=== PATIENT | male | born 1965 ===

== ENCOUNTER 2016-10-29 07:12 | Inpatient (IN) | payer SELFPAY ==
[2016-10-29 07:18] VITALS: BMI 26.4
--- NOTE | 2016-10-29 07:57 | C.PDOC ---
History Of Present Illness 51-year-old male, PMHx includes Hypothyroidism, presents to the emergency department with complaints of a cough, that is associated with subjective fever and shortness of breath for the past eight days. Patient denies nausea/vomiting , dizziness, back pain, neck pain, or any other associated symptoms. No other complaints at this time. Time Seen by Provider: 10/29/16 07:16 Chief Complaint (Nursing): Cough, Cold, Congestion Past Medical History Reviewed: Historical Data, Nursing Documentation, Vital Signs Vital Signs: Last Vital Signs Temp 98.5 F 10/29/16 15:27 Pulse 74 10/29/16 15:27 Resp 18 10/29/16 15:27 BP 112/61 10/29/16 15:27 Pulse Ox 99 10/29/16 15:27 - Medical History PMH: Hypothyroidism, Pneumonia Denies: Chronic Kidney Disease Family History: States: Unknown Family Hx - Social History Hx Tobacco Use: No Hx Alcohol Use: No Hx Substance Use: No - Immunization History Hx Tetanus Toxoid Vaccination: Yes Hx Influenza Vaccination: No Hx Pneumococcal Vaccination: No Review Of Systems Except As Marked, All Systems Reviewed And Found Negative. Constitutional: Positive for: Fever. Negative for: Chills Cardiovascular: Negative for: Chest Pain, Palpitations Respiratory: Positive for: Cough, Shortness of Breath. Negative for: Sputum Gastrointestinal: Negative for: Nausea, Vomiting Genitourinary: Negative for: Rash Musculoskeletal: Negative for: Neck Pain, Back Pain Neurological: Negative for: Headache, Dizziness Physical Exam - Physical Exam Appears: Non-toxic, No Acute Distress Skin: Normal Color, Warm, Dry, No Rash Head: Atraumatic, Normacephalic Eye(s): bilateral: Normal Inspection, PERRL, EOMI Ear(s): Bilateral: Normal Nose: Normal Oral Mucosa: Moist Lips: Normal Appearing Neck: Normal ROM, Supple Cardiovascular: Rhythm Regular Respiratory: Normal Breath Sounds, No Accessory Muscle Use Extremity: Normal ROM Neurological/Psych: Oriented x3, Normal Speech ED Course And Treatment - Laboratory Results Result Diagrams: 10/29/16 08:28 10/29/16 08:28 Lab Interpretation: Abnormal O2 Sat by Pulse Oximetry: 98 Pulse Ox Interpretation: Normal Progress Note: Chest X-Ray ordered and reviewed. Treated with IVF NSS, Rocephin 1 GM IV and zithromax. On re-evaluation lungs clear Reassessment Condition: Improved - Physician Consult Information Physician Contacted: Tanika Mccartney Outcome Of Conversation: admit Disposition Discussed With Dr.: Tanika Mccartney Doctor Will See Patient In The: Hospital - Disposition Disposition: HOSPITALIZED Disposition Time: 10:10 Condition: STABLE - POA Present On Arrival: None - Clinical Impression Clinical Impression: Pneumonia, Pneumonia - Scribe Statement The provider has reviewed the documentation as recorded by the Reedibe Arben Briseno All medical record entries made by the Scribe were at my direction and personally dictated by me. I have reviewed the chart and agree that the record accurately reflects my personal performance of the history, physical exam, medical decision making, and the department course for this patient. I have also personally directed, reviewed, and agree with the discharge instructions and disposition. Decision To Admit - Pt Status Changed To: Hospital Disposition Of: Inpatient - Admit Certification Admit to Inpatient:: After my assessment, the patient will require hospitalization for at least two midnights. This is because of the severity of symptoms shown, intensity of services needed, and/or the medical risk in this patient being treated as an outpatient. - InPatient: Physician Admission Certification: I certify that this patient requires 2 or more midnights of care for the following reason:: Pneumonia - . Bed Request Type: Regular Admitting Physician: Tanika Mccartney Patient Diagnosis: Pneumonia, Pneumonia
[2016-10-29] MEDS ORDERED: Albuterol-Ipratrop 3 mg / 0.5 (3 ml) UD IH STA (08:08)
[2016-10-29] MEDS ORDERED: Albuterol-Ipratrop 3 mg / 0.5 (3 ml) UD ONE ×2 (08:24→13:50)
[2016-10-29 08:37] LABS: BASO # 0.1 K/uL (0.0-0.2); BASO % 0.4 % (0.0-2.0); EOS # 0.5 K/uL (0.0-0.7); EOS % 3.2 % (0.0-4.0); HEMATOCRIT 33.9 % (35.0-51.0); LYMPH # 1.8 K/uL (1.0-4.3); LYMPH % 10.7 % (20.0-40.0); MEAN CELL VOLUME 81.5 fL (80.0-94.0); MEAN CORPUSCULAR HEMOGLOBIN 25.9 pg (27.0-31.0); MEAN CORPUSCULAR HGB CONC 31.8 g/dL (33.0-37.0); MEAN PLATELET VOLUME 8.1 fL (7.2-11.7); MONO # 0.3 K/uL (0.0-0.8); MONO % 1.9 % (0.0-10.0); RED CELL DISTRIBUTION WIDTH 17.3 % (11.5-14.5)
[2016-10-29 08:51] LABS: CHLORIDE 98 mmol/L (98-107); POTASSIUM 3.8 mmol/L (3.6-5.2)
[2016-10-29 08:54] LABS: GFR AFRICAN-AMERICAN > 60
[2016-10-29 09:42] LABS: SODIUM 131 mmol/L (132-148)
[2016-10-29] MEDS ORDERED: cefTRIAXone IV 1 gm in Dextros 50 ML IV ONE (09:52)
[2016-10-29 09:56] LABS: BLOOD UREA NITROGEN 15 mg/dL (9-20); CALCIUM 7.4 mg/dl (8.6-10.4); CARBON DIOXIDE 26 mmol/L (22-30); GLUCOSE,RANDOM 127 mg/dL (75-110)
[2016-10-29] MEDS ORDERED: cefTRIAXone IV 1 gm in Dextros 50 ML IVPB ONE ×2 (10:17→10:20)
--- NOTE | 2016-10-29 10:58 | RAD ---
HISTORY: Cough COMPARISON: Comparison is made to the previous study dated 07/16/2016 TECHNIQUE: Chest PA and lateral FINDINGS: LUNGS: Reticular heterogeneous opacities at the lung bases and lower lobe. The lower lobe opacities improved since the previous exam PLEURA: Blunting of both costophrenic angle. CARDIOVASCULAR: Normal. OSSEOUS STRUCTURES: No significant abnormalities. VISUALIZED UPPER ABDOMEN: Normal. OTHER FINDINGS: None. IMPRESSION: Heterogeneous opacities at the lung bases. Blunting of both costophrenic angles.
[2016-10-29] MEDS: Albuterol-Ipratrop 3 mg / 0.5 (3 ml) UD INH SCH (14:06)
--- NOTE | 2016-10-29 17:35 | CP.PCM.HP ---
<Myron Hwang - Last Filed: 10/30/16 01:06> History of Present Illness - History of Present Illness History of Present Illness: CC: 'Cough and fever for 8 days' HPI: Pt is a 51 year old male with a PMHx of hypothyroidism who presented to the ED complaining of worsening cough and fevers/chills for the past 8 days. Pt reports that his cough is productive and sputum is a white color. Pt denies any recent travel or any sick contacts. PT reports that he feels pain on the right side of his chest and upper back when he coughs. Pt denies chest pain at rest, shortness of breath, nausea, vomiting, abdominal pain , dizziness, and headache. PMD: Dr. Bran Stoner PMHx: Hypothyroidism Home medications: Levothryoxine 75 mcg qd Allergies: NKDA Past Surgical Hx: denies Social Hx: denies hx of tobacco, alcohol, drug abuse Family Hx: denies any significant family hx Present on Admission - Present on Admission Any Indicators Present on Admission: No Review of Systems - Constitutional Constitutional: Chills, Fever. absent: Headache - EENT Eyes: absent: Blurred Vision Ears: absent: Dizziness Nose/Mouth/Throat: absent: Epistaxis - Cardiovascular Cardiovascular: absent: Chest Pain at Rest, Dyspnea, Leg Edema, Palpitations - Respiratory Respiratory: Cough. absent: Hemoptysis - Gastrointestinal Gastrointestinal: absent: Abdominal Pain, Nausea, Vomiting - Genitourinary Genitourinary: absent: Dysuria - Musculoskeletal Musculoskeletal: Myalgias - Neurological Neurological: absent: Dizziness, Headaches - Psychiatric Psychiatric: absent: Confusion - Hematologic/Lymphatic Hematologic: absent: Easy Bleeding Past Patient History - Infectious Disease Hx of Infectious Diseases: None - Past Medical History & Family History Past Medical History?: Yes - Past Social History Smoking Status: Never Smoked - CARDIAC Hx Cardiac Disorders: No - PULMONARY Hx Pneumonia: Yes - NEUROLOGICAL Hx Neurological Disorder: No - HEENT Hx HEENT Problems: No - RENAL Hx Chronic Kidney Disease: No - ENDOCRINE/METABOLIC Hx Hypothyroidism: Yes - HEMATOLOGICAL/ONCOLOGICAL Hx Blood Disorders: No - INTEGUMENTARY Hx Dermatological Problems: No Hx Eczema: Yes - MUSCULOSKELETAL/RHEUMATOLOGICAL Hx Musculoskeletal Disorders: No - GASTROINTESTINAL Hx Gastrointestinal Disorders: No - GENITOURINARY/GYNECOLOGICAL Hx Genitourinary Disorders: No - PSYCHIATRIC Hx Substance Use: No - SURGICAL HISTORY Hx Surgeries: No - ANESTHESIA Hx Anesthesia: No Meds Allergies/Adverse Reactions: Allergies Allergy/AdvReac Type Severity Reaction Status Date / Time No Known Allergies Allergy Verified 10/29/16 07:38 Physical Exam - Constitutional Appears: No Acute Distress - Head Exam Head Exam: ATRAUMATIC, NORMOCEPHALIC - Eye Exam Eye Exam: EOMI, PERRL - ENT Exam ENT Exam: Mucous Membranes Moist - Neck Exam Neck exam: Positive for: Full Rom - Respiratory Exam Respiratory Exam: Rales - Cardiovascular Exam Cardiovascular Exam: +S1. absent: Gallop, Rubs - GI/Abdominal Exam GI & Abdominal Exam: Normal Bowel Sounds, Soft. absent: Distended, Rigid - Extremities Exam Extremities exam: Positive for: full ROM. Negative for: pedal edema - Neurological Exam Neurological exam: Alert, Oriented x3 - Psychiatric Exam Psychiatric exam: Normal Affect, Normal Mood - Skin Skin Exam: Normal Color, Warm Results - Vital Signs Recent Vital Signs: Last Vital Signs Temp 98.5 F 10/29/16 15:27 Pulse 74 10/29/16 15:27 Resp 18 10/29/16 15:27 BP 112/61 10/29/16 15:27 Pulse Ox 99 10/29/16 15:27 - Labs Result Diagrams: 10/29/16 08:28 10/29/16 08:28 Assessment & Plan - Assessment and Plan (Free Text) Assessment: SIRS likely secondary to pneumonia: Tmax 100.9 WBC - 17.0 Blood cultures pending Procalcitonin pending CXR - heterogeneous opacities at bilateral lung bases (please see full report) Urine legionella ag, mycoplasma Igm, strep pneumo ag pending Rocephin 1 gm IV qd Azithromycin 250 mg Iv qd Pneumonia: CXR - heterogeneous opacities at bilateral lung bases (please see full report) Urine legionella ag, mycoplasma Igm, strep pneumo ag pending Rocephin 1 gm IV qd Azithromycin 250 mg Iv qd Duonebs q6h Hypothyroidism: Levothyroxine 75 mcg po qd Prophylactic Measures: DVT: SCDs, Lovenox 40 mg sc qd GI: Protonix 40 mg po qd Florastor 250 mg po bid <Sly Nieto - Last Filed: 10/30/16 16:51> Results - Vital Signs Recent Vital Signs: Last Vital Signs Temp 101.7 F H 10/30/16 16:48 Pulse 93 H 10/30/16 16:00 Resp 20 10/30/16 16:00 BP 116/53 L 10/30/16 16:00 Pulse Ox 98 10/30/16 16:00 - Labs Result Diagrams: 10/30/16 08:02 10/30/16 08:02 Labs: Laboratory Results - last 24 hr 10/29/16 10/29/16 10/30/16 11:10 20:07 08:02 WBC RBC Hgb Hct MCV MCH MCHC RDW Plt Count MPV Neut % (Auto) Lymph % (Auto) [place] % (Auto) Eos % (Auto) Baso % (Auto) Neut # Lymph # [place] # Eos # Baso # Sodium Potassium Chloride Carbon Dioxide Anion Gap BUN Creatinine Est GFR ( Amer) Est GFR (Non-Af Amer) Random Glucose Calcium Phosphorus Magnesium Total Bilirubin AST ALT Alkaline Phosphatase Total Protein Albumin Globulin Albumin/Globulin Ratio Procalcitonin 0.05 L Ur L.pneumophila Ag Negative Mycoplasma pneumon IgM Negative 10/30/16 10/30/16 08:02 08:02 WBC 17.9 H RBC 4.42 Hgb 11.7 L Hct 36.2 MCV 82.0 MCH 26.5 L MCHC 32.4 L RDW 17.4 H Plt Count 394 MPV 8.1 Neut % (Auto) 77.9 H Lymph % (Auto) 14.6 L [place] % (Auto) 2.0 Eos % (Auto) 5.2 H Baso % (Auto) 0.3 Neut # 13.9 H Lymph # 2.6 [place] # 0.4 Eos # 0.9 H Baso # 0.1 Sodium 130 L Potassium 3.9 Chloride 97 L Carbon Dioxide 26 Anion Gap 11 BUN 10 Creatinine 0.6 L Est GFR ( Amer) > 60 Est GFR (Non-Af Amer) > 60 Random Glucose 114 H Calcium 7.8 L Phosphorus 4.9 H Magnesium 1.8 Total Bilirubin 0.7 AST 34 ALT 25 Alkaline Phosphatase 77 Total Protein 8.3 Albumin 3.1 L Globulin 5.2 H Albumin/Globulin Ratio 0.6 L Procalcitonin Ur L.pneumophila Ag Mycoplasma pneumon IgM Attending/Attestation - Attestation I have personally seen and examined this patient.: Yes I have fully participated in the care of the patient.: Yes I have reviewed all pertinent clinical information: Yes Notes (Text): 10/30/16 16:50 Patient was seen and examined at bedside with the resident We will admit the patient for pneumonia I discussed the plan of care with the resident and agree with the above history and physical and assessment/plan by the resident.
[2016-10-29] MEDS: Saccharomyces Boulardi 250 mg Cap PO SCH (17:38)
[2016-10-30 00:26] VITALS: RESP 20
[2016-10-30] MEDS ORDERED: Promethazine DM 6.25 mg-15 mg/5 ml Syrup PO PRN (01:09)
[2016-10-30] MEDS: Albuterol-Ipratrop 3 mg / 0.5 (3 ml) UD INH SCH ×3 (01:34→19:23)
[2016-10-30] MEDS: Levothyroxine 75 MCG TAB PO SCH (06:36)
[2016-10-30 08:13] LABS: BASO # 0.1 K/uL (0.0-0.2); BASO % 0.3 % (0.0-2.0); EOS # 0.9 K/uL (0.0-0.7); EOS % 5.2 % (0.0-4.0); HEMATOCRIT 36.2 % (35.0-51.0); LYMPH # 2.6 K/uL (1.0-4.3); LYMPH % 14.6 % (20.0-40.0); MEAN CORPUSCULAR HEMOGLOBIN 26.5 pg (27.0-31.0); MEAN CORPUSCULAR HGB CONC 32.4 g/dL (33.0-37.0); MEAN PLATELET VOLUME 8.1 fL (7.2-11.7); MONO # 0.4 K/uL (0.0-0.8); NRBC % 0.1 % (0.0-2.0); RED CELL DISTRIBUTION WIDTH 17.4 % (11.5-14.5); WHITE BLOOD COUNT 17.9 K/uL (4.8-10.8)
[2016-10-30 08:51] LABS: ALB/GLOB RATIO 0.6 (1.0-2.1); ALKALINE PHOSPHATASE 77 U/L (38-126); ALT/SGPT 25 U/L (21-72); AST/SGOT 34 U/L (17-59); BILIRUBIN,TOTAL 0.7 mg/dL (0.2-1.3); BLOOD UREA NITROGEN 10 mg/dL (9-20); CALCIUM 7.8 mg/dl (8.6-10.4); CARBON DIOXIDE 26 mmol/L (22-30); CHLORIDE 97 mmol/L (98-107); GFR AFRICAN-AMERICAN > 60; GLUCOSE,RANDOM 114 mg/dL (75-110); MAGNESIUM 1.8 mg/dL (1.6-2.3); PHOSPHOROUS 4.9 mg/dL (2.5-4.5); POTASSIUM 3.9 mmol/L (3.6-5.2); SODIUM 130 mmol/L (132-148); TOTAL PROTEIN 8.3 g/dL (6.3-8.3)
[2016-10-30] MEDS: Azithromycin 500 MG in Sodium Chloride 0.9% 250 ML IVPB SCH (09:55)
[2016-10-30] MEDS: Saccharomyces Boulardi 250 mg Cap PO SCH ×2 (10:00→17:26)
[2016-10-30] MEDS: Pantoprazole 40 mg EC Tab PO SCH (10:00)
[2016-10-30] MEDS: Enoxaparin 40 mg Syringe SC SCH (10:00)
--- NOTE | 2016-10-30 16:32 | CP.PCM.PN ---
<Myron Hwang - Last Filed: 10/30/16 16:25> Subjective - Date & Time of Evaluation Date of Evaluation: 10/30/16 Time of Evaluation: 10:37 - Subjective Subjective: Pt seen and examined. Pt reports that he is feeling better today. Pt reports that his cough has improved. Pt complains of subjective fever. Pt denies chest pain, shortness of breath, nausea, and vomiting. Objective - Vital Signs/Intake and Output Vital Signs (last 24 hours): Temp Pulse Resp BP Pulse Ox 98.8 F 78 20 105/50 L 97 10/30/16 08:17 10/30/16 08:17 10/30/16 08:17 10/30/16 08:17 10/30/16 08:17 Intake and Output: 10/30/16 10/30/16 06:59 18:59 Intake Total 240 950 Balance 240 950 - Medications Medications: Current Medications Acetaminophen (Tylenol 325mg Tab) 650 mg PO Q6 PRN PRN Reason: Fever >100.4 F Albuterol/Ipratropium (Duoneb 3 Mg/0.5 Mg (3 Ml) Ud) 3 ml INH RQ6 [facility] Last Admin: 10/30/16 08:45 Dose: 3 ml Enoxaparin Sodium (Lovenox) 40 mg SC DAILY [facility] Last Admin: 10/30/16 10:00 Dose: 40 mg Ceftriaxone Sodium 1 gm/ (Sodium Chloride) 100 mls @ 100 mls/hr IVPB Q24H [facility] Last Admin: 10/30/16 11:53 Dose: 100 mls/hr Azithromycin 500 mg/ Sodium (Chloride) 250 mls @ 250 mls/hr IVPB DAILY [facility] Last Admin: 10/30/16 09:55 Dose: 250 mls/hr Levothyroxine Sodium (Synthroid) 75 mcg PO DAILY@0630 [facility] Last Admin: 10/30/16 06:36 Dose: 75 mcg Pantoprazole Sodium (Protonix Ec Tab) 40 mg PO DAILY [facility] Last Admin: 10/30/16 10:00 Dose: 40 mg Pneumococcal Polyvalent Vaccine (Pneumovax 23 Vaccine) 0.5 ml IM .ONCE ONE Stop: 11/01/16 10:01 Promethazine HCl/Dextromethorphan (Phenergan Dm Syrup) 5 ml PO Q6H PRN PRN Reason: Cough Saccharomyces Boulardii (Florastor) 250 mg PO BID MARY ELLEN Last Admin: 10/30/16 10:00 Dose: 250 mg - Labs Labs: 10/30/16 08:02 10/30/16 08:02 - Constitutional Appears: No Acute Distress - Head Exam Head Exam: ATRAUMATIC, NORMOCEPHALIC - Eye Exam Eye Exam: EOMI, PERRL - ENT Exam ENT Exam: Mucous Membranes Moist. absent: Mucous Membranes Dry - Respiratory Exam Respiratory Exam: Clear to Ausculation Bilateral. absent: Rales, Rhonchi - Cardiovascular Exam Cardiovascular Exam: +S1, +S2. absent: Gallop, Rubs - GI/Abdominal Exam GI & Abdominal Exam: Soft, Normal Bowel Sounds. absent: Distended, Tenderness - Extremities Exam Extremities Exam: Full ROM. absent: Pedal Edema - Neurological Exam Neurological Exam: Alert, Awake, Oriented x3 - Psychiatric Exam Psychiatric exam: Normal Affect, Normal Mood - Skin Skin Exam: Normal Color, Warm Assessment and Plan - Assessment and Plan (Free Text) Assessment: SIRS likely secondary to pneumonia: Tmax 101.7 WBC - 17.9 Blood cultures pending Procalcitonin 0.05 CXR - heterogeneous opacities at bilateral lung bases (please see full report) Urine legionella ag, mycoplasma Igm negative, strep pneumo ag pending Rocephin 1 gm IV qd Azithromycin 250 mg Iv qd NS IVF 100 cc/hr Pneumonia: CXR - heterogeneous opacities at bilateral lung bases (please see full report) Urine legionella ag, mycoplasma Igm, strep pneumo ag pending Rocephin 1 gm IV qd Azithromycin 250 mg Iv qd Duonebs q6h Phenergan prn for cough Hypothyroidism: Levothyroxine 75 mcg po qd Prophylactic Measures: DVT: SCDs, Lovenox 40 mg sc qd GI: Protonix 40 mg po qd Florastor 250 mg po bid <Sly Nieto - Last Filed: 10/30/16 16:52> Objective - Vital Signs/Intake and Output Vital Signs (last 24 hours): Temp Pulse Resp BP Pulse Ox 101.7 F H 93 H 20 116/53 L 98 10/30/16 16:48 10/30/16 16:00 10/30/16 16:00 10/30/16 16:00 10/30/16 16:00 Intake and Output: 10/30/16 10/30/16 06:59 18:59 Intake Total 240 950 Balance 240 950 - Medications Medications: Current Medications Acetaminophen (Tylenol 325mg Tab) 650 mg PO Q6 PRN PRN Reason: Fever >100.4 F Last Admin: 10/30/16 16:48 Dose: 650 mg Albuterol/Ipratropium (Duoneb 3 Mg/0.5 Mg (3 Ml) Ud) 3 ml INH RQ6 [facility] Last Admin: 10/30/16 08:45 Dose: 3 ml Enoxaparin Sodium (Lovenox) 40 mg SC DAILY [facility] Last Admin: 10/30/16 10:00 Dose: 40 mg Ceftriaxone Sodium 1 gm/ (Sodium Chloride) 100 mls @ 100 mls/hr IVPB Q24H [facility] Last Admin: 10/30/16 11:53 Dose: 100 mls/hr Azithromycin 500 mg/ Sodium (Chloride) 250 mls @ 250 mls/hr IVPB DAILY [facility] Last Admin: 10/30/16 09:55 Dose: 250 mls/hr Sodium Chloride (Sodium Chloride 0.9%) 1,000 mls @ 100 mls/hr IV .Q10H [facility] Last Admin: 10/30/16 16:48 Dose: 100 mls/hr Levothyroxine Sodium (Synthroid) 75 mcg PO DAILY@0630 [facility] Last Admin: 10/30/16 06:36 Dose: 75 mcg Pantoprazole Sodium (Protonix Ec Tab) 40 mg PO DAILY [facility] Last Admin: 10/30/16 10:00 Dose: 40 mg Pneumococcal Polyvalent Vaccine (Pneumovax 23 Vaccine) 0.5 ml IM .ONCE ONE Stop: 11/01/16 10:01 Promethazine HCl/Dextromethorphan (Phenergan Dm Syrup) 5 ml PO Q6H PRN PRN Reason: Cough Saccharomyces Boulardii (Florastor) 250 mg PO BID [facility] Last Admin: 10/30/16 10:00 Dose: 250 mg - Labs Labs: 10/30/16 08:02 10/30/16 08:02 Attending/Attestation - Attestation I have personally seen and examined this patient.: Yes I have fully participated in the care of the patient.: Yes I have reviewed all pertinent clinical information, including history, physical exam and plan: Yes Notes (Text): 10/30/16 16:51 Vision was seen and examined at bedside with the resident. Continue current management for pneumonia Patient still has cough and expectoration Discussed plan of care with the resident and I agree with the above history and physical and assessment/plan but the resident
[2016-10-30] MEDS: Sodium Chloride 0.9% 1,000 ML IV SCH (16:48)
[2016-10-31] MEDS: Albuterol-Ipratrop 3 mg / 0.5 (3 ml) UD INH SCH ×3 (01:57→19:45)
[2016-10-31] MEDS: Sodium Chloride 0.9% 1,000 ML IV SCH ×3 (03:16→17:29)
[2016-10-31] MEDS: Levothyroxine 75 MCG TAB PO SCH (05:52)
[2016-10-31 07:21] LABS: BASO % 0.2 % (0.0-2.0); EOS # 0.8 K/uL (0.0-0.7); EOS % 5.1 % (0.0-4.0); HEMATOCRIT 33.9 % (35.0-51.0); LYMPH % 13.2 % (20.0-40.0); MEAN CORPUSCULAR HEMOGLOBIN 26.4 pg (27.0-31.0); MEAN CORPUSCULAR HGB CONC 32.6 g/dL (33.0-37.0); MEAN PLATELET VOLUME 7.9 fL (7.2-11.7); MONO # 0.3 K/uL (0.0-0.8); RED CELL DISTRIBUTION WIDTH 17.4 % (11.5-14.5)
[2016-10-31 08:05] LABS: CHLORIDE 100 mmol/L (98-107); SODIUM 130 mmol/L (132-148)
[2016-10-31 08:06] LABS: POTASSIUM 3.9 mmol/L (3.6-5.2)
[2016-10-31 08:07] LABS: GFR AFRICAN-AMERICAN > 60
[2016-10-31 08:08] LABS: ALB/GLOB RATIO 0.6 (1.0-2.1); ALKALINE PHOSPHATASE 75 U/L (38-126); ALT/SGPT 23 U/L (21-72); AST/SGOT 33 U/L (17-59); BILIRUBIN,TOTAL 0.6 mg/dL (0.2-1.3); BLOOD UREA NITROGEN 12 mg/dL (9-20); CARBON DIOXIDE 25 mmol/L (22-30); GLUCOSE,RANDOM 91 mg/dL (75-110); TOTAL PROTEIN 7.5 g/dL (6.3-8.3)
[2016-10-31 08:09] LABS: CALCIUM 7.2 mg/dl (8.6-10.4); MAGNESIUM 1.7 mg/dL (1.6-2.3); PHOSPHOROUS 4.9 mg/dL (2.5-4.5)
[2016-10-31] MEDS: Pantoprazole 40 mg EC Tab PO SCH (10:45)
[2016-10-31] MEDS: Azithromycin 500 MG in Sodium Chloride 0.9% 250 ML IVPB SCH (10:45)
[2016-10-31] MEDS: Saccharomyces Boulardi 250 mg Cap PO SCH ×2 (10:45→17:32)
[2016-10-31] MEDS: Enoxaparin 40 mg Syringe SC SCH (10:45)
--- NOTE | 2016-10-31 14:03 | CP.PCM.PN ---
<Myron Hwang - Last Filed: 10/31/16 13:56> Subjective - Date & Time of Evaluation Date of Evaluation: 10/31/16 Time of Evaluation: 07:05 - Subjective Subjective: Pt seen and examind. Pt reports that he had a fever last yesterday. He reports that he is coughing. Pt denies chest pain, shortness of breath, nausea, vomiting , diarrhea. Objective - Vital Signs/Intake and Output Vital Signs (last 24 hours): Temp Pulse Resp BP Pulse Ox 98.5 F 79 20 112/62 96 10/31/16 08:17 10/31/16 08:17 10/31/16 08:17 10/31/16 08:17 10/31/16 08:17 Intake and Output: 10/31/16 10/31/16 06:59 18:59 Intake Total 1939 Balance 1939 - Medications Medications: Current Medications Acetaminophen (Tylenol 325mg Tab) 650 mg PO Q6 PRN PRN Reason: Fever >100.4 F Last Admin: 10/30/16 16:48 Dose: 650 mg Albuterol/Ipratropium (Duoneb 3 Mg/0.5 Mg (3 Ml) Ud) 3 ml INH RQ6 [facility] Last Admin: 10/31/16 07:56 Dose: 3 ml Enoxaparin Sodium (Lovenox) 40 mg SC DAILY [facility] Last Admin: 10/31/16 10:45 Dose: 40 mg Ceftriaxone Sodium 1 gm/ (Sodium Chloride) 100 mls @ 100 mls/hr IVPB Q24H [facility] Last Admin: 10/31/16 12:31 Dose: 100 mls/hr Azithromycin 500 mg/ Sodium (Chloride) 250 mls @ 250 mls/hr IVPB DAILY [facility] Last Admin: 10/31/16 10:45 Dose: 250 mls/hr Sodium Chloride (Sodium Chloride 0.9%) 1,000 mls @ 100 mls/hr IV .Q10H [facility] Last Admin: 10/31/16 12:31 Dose: Not Given Levothyroxine Sodium (Synthroid) 75 mcg PO DAILY@0630 [facility] Last Admin: 10/31/16 05:52 Dose: 75 mcg Pantoprazole Sodium (Protonix Ec Tab) 40 mg PO DAILY [facility] Last Admin: 10/31/16 10:45 Dose: 40 mg Pneumococcal Polyvalent Vaccine (Pneumovax 23 Vaccine) 0.5 ml IM .ONCE ONE Stop: 11/01/16 10:01 Promethazine HCl/Dextromethorphan (Phenergan Dm Syrup) 5 ml PO Q6H PRN PRN Reason: Cough Saccharomyces Boulardii (Florastor) 250 mg PO BID MARY ELLEN Last Admin: 10/31/16 10:45 Dose: 250 mg - Labs Labs: 10/31/16 07:07 10/31/16 07:07 - Constitutional Appears: No Acute Distress - Head Exam Head Exam: ATRAUMATIC, NORMOCEPHALIC - Eye Exam Eye Exam: EOMI - ENT Exam ENT Exam: Mucous Membranes Moist. absent: Mucous Membranes Dry - Respiratory Exam Respiratory Exam: Rales. absent: Wheezes - Cardiovascular Exam Cardiovascular Exam: +S1, +S2. absent: Gallop, Rubs, Murmur - GI/Abdominal Exam GI & Abdominal Exam: Soft. absent: Distended, Guarding, Tenderness - Extremities Exam Extremities Exam: Full ROM. absent: Pedal Edema - Neurological Exam Neurological Exam: Alert, Awake, Oriented x3 - Psychiatric Exam Psychiatric exam: Normal Affect, Normal Mood - Skin Skin Exam: Normal Color, Warm Assessment and Plan - Assessment and Plan (Free Text) Assessment: SIRS likely secondary to pneumonia: Tmax 101.7 WBC - 15,000 improving Blood cultures no growth after 24 hours Procalcitonin 0.05 CXR - heterogeneous opacities at bilateral lung bases (please see full report) Urine legionella ag, mycoplasma Igm negative, strep pneumo ag pending Rocephin 1 gm IV qd Azithromycin 250 mg Iv qd NS IVF 100 cc/hr Pneumonia: CXR - heterogeneous opacities at bilateral lung bases (please see full report) Urine legionella ag, mycoplasma Igm, strep pneumo ag pending Rocephin 1 gm IV qd Azithromycin 250 mg Iv qd Duonebs q6h Phenergan prn for cough Hypothyroidism: Levothyroxine 75 mcg po qd Prophylactic Measures: DVT: SCDs, Lovenox 40 mg sc qd GI: Protonix 40 mg po qd Florastor 250 mg po bid <Sly Nieto - Last Filed: 11/01/16 15:58> Objective - Vital Signs/Intake and Output Vital Signs (last 24 hours): Temp Pulse Resp BP Pulse Ox 98.7 F 85 20 121/64 98 11/01/16 07:25 11/01/16 07:25 11/01/16 07:25 11/01/16 07:25 11/01/16 07:25 Intake and Output: 11/01/16 11/01/16 06:59 18:59 Intake Total 1000 1300 Balance 1000 1300 - Medications Medications: Current Medications Acetaminophen (Tylenol 325mg Tab) 650 mg PO Q6 PRN PRN Reason: Fever >100.4 F Last Admin: 10/30/16 16:48 Dose: 650 mg Albuterol/Ipratropium (Duoneb 3 Mg/0.5 Mg (3 Ml) Ud) 3 ml INH RQ6 [facility] Last Admin: 11/01/16 13:45 Dose: 3 ml Enoxaparin Sodium (Lovenox) 40 mg SC DAILY [facility] Last Admin: 11/01/16 09:49 Dose: 40 mg Ceftriaxone Sodium 1 gm/ (Sodium Chloride) 100 mls @ 100 mls/hr IVPB Q24H [facility] Last Admin: 10/31/16 12:31 Dose: 100 mls/hr Azithromycin 500 mg/ Sodium (Chloride) 250 mls @ 250 mls/hr IVPB DAILY [facility] Last Admin: 11/01/16 09:50 Dose: 250 mls/hr Sodium Chloride (Sodium Chloride 0.9%) 1,000 mls @ 100 mls/hr IV .Q10H [facility] Last Admin: 11/01/16 04:43 Dose: 100 mls/hr Levothyroxine Sodium (Synthroid) 75 mcg PO DAILY@0630 [facility] Last Admin: 11/01/16 06:35 Dose: 75 mcg Pantoprazole Sodium (Protonix Ec Tab) 40 mg PO DAILY [facility] Last Admin: 11/01/16 09:49 Dose: 40 mg Promethazine HCl/Dextromethorphan (Phenergan Dm Syrup) 5 ml PO Q6H PRN PRN Reason: Cough Saccharomyces Boulardii (Florastor) 250 mg PO BID [facility] Last Admin: 11/01/16 09:49 Dose: 250 mg - Labs Labs: 11/01/16 08:07 11/01/16 08:07 Attending/Attestation - Attestation I have personally seen and examined this patient.: Yes I have fully participated in the care of the patient.: Yes I have reviewed all pertinent clinical information, including history, physical exam and plan: Yes Notes (Text): 11/01/16 15:58 Patient was seen and examined at bedside with the resident. This is a late computer entry Patient is clinically improving Cough and expectoration is improving Continue IV antibiotics Discharge planning with the next 24 hours if the patient is medically stable
[2016-11-01 01:57] VITALS: O2SAT 98
[2016-11-01] MEDS: Albuterol-Ipratrop 3 mg / 0.5 (3 ml) UD INH SCH ×3 (02:04→13:45)
[2016-11-01] MEDS: Sodium Chloride 0.9% 1,000 ML IV SCH (04:43)
[2016-11-01] MEDS: Levothyroxine 75 MCG TAB PO SCH (06:35)
[2016-11-01 07:27] VITALS: BP 121/64; PULSE 85; TEMP 98.7
[2016-11-01 08:15] LABS: BASO % 0.3 % (0.0-2.0); EOS # 0.9 K/uL (0.0-0.7); EOS % 6.1 % (0.0-4.0); HEMATOCRIT 34.6 % (35.0-51.0); LYMPH # 2.1 K/uL (1.0-4.3); LYMPH % 14.2 % (20.0-40.0); MEAN CELL VOLUME 80.8 fL (80.0-94.0); MEAN CORPUSCULAR HEMOGLOBIN 26.2 pg (27.0-31.0); MEAN CORPUSCULAR HGB CONC 32.4 g/dL (33.0-37.0); MEAN PLATELET VOLUME 8.3 fL (7.2-11.7); MONO # 0.3 K/uL (0.0-0.8); MONO % 1.8 % (0.0-10.0); RED CELL DISTRIBUTION WIDTH 17.5 % (11.5-14.5); WHITE BLOOD COUNT 15.1 K/uL (4.8-10.8)
[2016-11-01 08:38] LABS: CHLORIDE 98 mmol/L (98-107); SODIUM 131 mmol/L (132-148)
[2016-11-01 08:40] LABS: BILIRUBIN,TOTAL 0.6 mg/dL (0.2-1.3); GFR AFRICAN-AMERICAN > 60
[2016-11-01 08:41] LABS: ALB/GLOB RATIO 0.6 (1.0-2.1); ALKALINE PHOSPHATASE 74 U/L (38-126); ALT/SGPT 27 U/L (21-72); AST/SGOT 35 U/L (17-59); BLOOD UREA NITROGEN 9 mg/dL (9-20); CARBON DIOXIDE 26 mmol/L (22-30); GLUCOSE,RANDOM 89 mg/dL (75-110); PHOSPHOROUS 4.5 mg/dL (2.5-4.5); TOTAL PROTEIN 7.6 g/dL (6.3-8.3)
[2016-11-01 08:42] LABS: CALCIUM 7.4 mg/dl (8.6-10.4); MAGNESIUM 1.7 mg/dL (1.6-2.3)
[2016-11-01] MEDS: Saccharomyces Boulardi 250 mg Cap PO SCH (09:49)
[2016-11-01] MEDS: Enoxaparin 40 mg Syringe SC SCH (09:49)
[2016-11-01] MEDS: Pantoprazole 40 mg EC Tab PO SCH (09:49)
[2016-11-01] MEDS: Azithromycin 500 MG in Sodium Chloride 0.9% 250 ML IVPB SCH (09:50)
[2016-11-01] MEDS ORDERED: Pneumococcal 23-Valent Vaccine IM ONE ×2 (10:00→13:00)
--- NOTE | 2016-11-01 12:45 | CP.PCM.DIS ---
<Kacie Badillo - Last Filed: 11/01/16 12:41> Provider - Provider Date of Admission: 10/29/16 10:09 Attending physician: Sly Nieto MD Time Spent in preparation of Discharge (in minutes): 90 Hospital Course - Lab Results Lab Results: Micro Results 10/29/16 12:00 Blood-Venous Blood Culture - Preliminary NO GROWTH AFTER 48 HOURS 10/29/16 10:30 Blood-Venous Blood Culture - Preliminary NO GROWTH AFTER 48 HOURS Most Recent Lab Values WBC 15.1 K/uL (4.8-10.8) H 11/01/16 08:07 RBC 4.28 Mil/uL (4.40-5.90) L 11/01/16 08:07 Hgb 11.2 g/dL (12.0-18.0) L 11/01/16 08:07 Hct 34.6 % (35.0-51.0) L 11/01/16 08:07 MCV 80.8 fL (80.0-94.0) 11/01/16 08:07 MCH 26.2 pg (27.0-31.0) L 11/01/16 08:07 MCHC 32.4 g/dL (33.0-37.0) L 11/01/16 08:07 RDW 17.5 % (11.5-14.5) H 11/01/16 08:07 Plt Count 356 K/uL (130-400) 11/01/16 08:07 MPV 8.3 fL (7.2-11.7) 11/01/16 08:07 Neut % (Auto) 77.6 % (50.0-75.0) H 11/01/16 08:07 Lymph % (Auto) 14.2 % (20.0-40.0) L 11/01/16 08:07 Wise % (Auto) 1.8 % (0.0-10.0) 11/01/16 08:07 Eos % (Auto) 6.1 % (0.0-4.0) H 11/01/16 08:07 Baso % (Auto) 0.3 % (0.0-2.0) 11/01/16 08:07 Neut # 11.7 K/uL (1.8-7.0) H 11/01/16 08:07 Lymph # 2.1 K/uL (1.0-4.3) 11/01/16 08:07 Wise # 0.3 K/uL (0.0-0.8) 11/01/16 08:07 Eos # 0.9 K/uL (0.0-0.7) H 11/01/16 08:07 Baso # 0.0 K/uL (0.0-0.2) 11/01/16 08:07 Sodium 131 mmol/L (132-148) L 11/01/16 08:07 Potassium 4.0 mmol/L (3.6-5.2) 11/01/16 08:07 Chloride 98 mmol/L (98-107) 11/01/16 08:07 Carbon Dioxide 26 mmol/L (22-30) 11/01/16 08:07 Anion Gap 11 (10-20) 11/01/16 08:07 BUN 9 mg/dL (9-20) 11/01/16 08:07 Creatinine 0.5 MG/DL (0.8-1.5) L 11/01/16 08:07 Est GFR ( Amer) > 60 11/01/16 08:07 Est GFR (Non-Af Amer) > 60 11/01/16 08:07 Random Glucose 89 mg/dL (75-110) 11/01/16 08:07 Calcium 7.4 mg/dl (8.6-10.4) L 11/01/16 08:07 Phosphorus 4.5 mg/dL (2.5-4.5) 11/01/16 08:07 Magnesium 1.7 mg/dL (1.6-2.3) 11/01/16 08:07 Total Bilirubin 0.6 mg/dL (0.2-1.3) 11/01/16 08:07 AST 35 U/L (17-59) 11/01/16 08:07 ALT 27 U/L (21-72) 11/01/16 08:07 Alkaline Phosphatase 74 U/L (38-126) 11/01/16 08:07 Total Protein 7.6 g/dL (6.3-8.3) 11/01/16 08:07 Albumin 2.8 g/dL (3.5-5.0) L 11/01/16 08:07 Globulin 4.9 gm/dL (2.2-3.9) H 11/01/16 08:07 Albumin/Globulin Ratio 0.6 (1.0-2.1) L 11/01/16 08:07 Procalcitonin 0.05 NG/ML (0.19-0.49) L 10/29/16 20:07 HIV 1&2 Antibody Screen Negative (NEGATIVE) 10/30/16 19:44 Ur L.pneumophila Ag Negative (NEGATIVE) 10/29/16 11:10 Mycoplasma pneumon IgM Negative (NEGATIVE) 10/30/16 08:02 - Hospital Course Hospital Course: As per HPI: Pt is a 51 year old male with a PMHx of hypothyroidism who presented to the ED complaining of worsening cough and fevers/chills for the past 8 days. Pt reports that his cough is productive and sputum is a white color. Pt denies any recent travel or any sick contacts. PT reports that he feels pain on the right side of his chest and upper back when he coughs. Pt denies chest pain at rest, shortness of breath, nausea, vomiting, abdominal pain , dizziness, and headache. Patient was admitted for pneumonia that was diagnosed on CXR. CXR showed heterogeneous opacities at bilateral lung bases suspicious for pneumonia. The patient was started on IV antibiotics. He had a fever on admission and met sepsis criteria. Patient was started on IV fluids as well. Pts blood cultures came back negative for growth. Urine legionella ag and mycoplasma Igm were both negative. The patient's symptoms improved and patient was stable for discharge home on oral antibiotics. - Constitutional Appears: No Acute Distress - Head Exam Head Exam: ATRAUMATIC, NORMOCEPHALIC - Eye Exam Eye Exam: EOMI - ENT Exam ENT Exam: Mucous Membranes Moist. absent: Mucous Membranes Dry - Respiratory Exam Respiratory Exam: Rales. absent: Wheezes - Cardiovascular Exam Cardiovascular Exam: +S1, +S2. absent: Gallop, Rubs, Murmur - GI/Abdominal Exam GI & Abdominal Exam: Soft. absent: Distended, Guarding, Tenderness - Extremities Exam Extremities Exam: Full ROM. absent: Pedal Edema - Neurological Exam Neurological Exam: Alert, Awake, Oriented x3 - Psychiatric Exam Psychiatric exam: Normal Affect, Normal Mood - Skin Skin Exam: Normal Color, Warm Assessment and Plan - Assessment and Plan (Free Text) Assessment: SIRS likely secondary to pneumonia- resolved: Tmax 101.7, afebrile since 10/30/16 WBC - 15 improving Blood cultures no growth after 48 hours Procalcitonin 0.05 CXR - heterogeneous opacities at bilateral lung bases (please see full report) Urine legionella ag, mycoplasma Igm negative Rocephin 1 gm IV qd Azithromycin 250 mg Iv qd NS IVF 100 cc/hr Pneumonia: Symptoms improved CXR - heterogeneous opacities at bilateral lung bases (please see full report) Urine legionella ag, mycoplasma Igm, strep pneumo ag pending Rocephin 1 gm IV qd Azithromycin 250 mg Iv qd Duonebs q6h Phenergan prn for cough Hypothyroidism: Levothyroxine 75 mcg po qd Prophylactic Measures: DVT: SCDs, Lovenox 40 mg sc qd GI: Protonix 40 mg po qd Florastor 250 mg po bid Discharge Exam - Head Exam Head Exam: ATRAUMATIC, NORMOCEPHALIC Discharge Plan - Discharge Medications Prescriptions: Levofloxacin [Levaquin] 750 mg PO DAILY #5 tablet Levothyroxine [Synthroid] 75 mcg PO DAILY@0630 #30 tab - Follow Up Plan Condition: STABLE Disposition: HOME/ ROUTINE Instructions: Levothyroxine (By mouth), Levofloxacin (By mouth), Hypothyroidism (DC), Regular Diet (DC), Pneumonia (ED) Additional Instructions: Patient is to be discharged home today per Dr Nieto. Patient should take Rx for : Synthroid 75 mcg daily and Levaquin 750mg daily x 5days. Patient should follow up with [facility] to establish a PMD within 1 week. If patient experiences recurrence of his symptoms he should return to the ED. Instructions were explained to the patient who understands. Referrals: [facility] [Outside] <Sly Nieto - Last Filed: 11/01/16 17:11> Provider - Provider Date of Admission: 10/29/16 10:09 Attending physician: Sly Nieto MD Hospital Course - Lab Results Lab Results: Micro Results 10/29/16 12:00 Blood-Venous Blood Culture - Preliminary NO GROWTH AFTER 48 HOURS 10/29/16 10:30 Blood-Venous Blood Culture - Preliminary NO GROWTH AFTER 48 HOURS Most Recent Lab Values WBC 15.1 K/uL (4.8-10.8) H 11/01/16 08:07 RBC 4.28 Mil/uL (4.40-5.90) L 11/01/16 08:07 Hgb 11.2 g/dL (12.0-18.0) L 11/01/16 08:07 Hct 34.6 % (35.0-51.0) L 11/01/16 08:07 MCV 80.8 fL (80.0-94.0) 11/01/16 08:07 MCH 26.2 pg (27.0-31.0) L 11/01/16 08:07 MCHC 32.4 g/dL (33.0-37.0) L 11/01/16 08:07 RDW 17.5 % (11.5-14.5) H 11/01/16 08:07 Plt Count 356 K/uL (130-400) 11/01/16 08:07 MPV 8.3 fL (7.2-11.7) 11/01/16 08:07 Neut % (Auto) 77.6 % (50.0-75.0) H 11/01/16 08:07 Lymph % (Auto) 14.2 % (20.0-40.0) L 11/01/16 08:07 Wise % (Auto) 1.8 % (0.0-10.0) 11/01/16 08:07 Eos % (Auto) 6.1 % (0.0-4.0) H 11/01/16 08:07 Baso % (Auto) 0.3 % (0.0-2.0) 11/01/16 08:07 Neut # 11.7 K/uL (1.8-7.0) H 11/01/16 08:07 Lymph # 2.1 K/uL (1.0-4.3) 11/01/16 08:07 Wise # 0.3 K/uL (0.0-0.8) 11/01/16 08:07 Eos # 0.9 K/uL (0.0-0.7) H 11/01/16 08:07 Baso # 0.0 K/uL (0.0-0.2) 11/01/16 08:07 Sodium 131 mmol/L (132-148) L 11/01/16 08:07 Potassium 4.0 mmol/L (3.6-5.2) 11/01/16 08:07 Chloride 98 mmol/L (98-107) 11/01/16 08:07 Carbon Dioxide 26 mmol/L (22-30) 11/01/16 08:07 Anion Gap 11 (10-20) 11/01/16 08:07 BUN 9 mg/dL (9-20) 11/01/16 08:07 Creatinine 0.5 MG/DL (0.8-1.5) L 11/01/16 08:07 Est GFR ( Amer) > 60 11/01/16 08:07 Est GFR (Non-Af Amer) > 60 11/01/16 08:07 Random Glucose 89 mg/dL (75-110) 11/01/16 08:07 Calcium 7.4 mg/dl (8.6-10.4) L 11/01/16 08:07 Phosphorus 4.5 mg/dL (2.5-4.5) 11/01/16 08:07 Magnesium 1.7 mg/dL (1.6-2.3) 11/01/16 08:07 Total Bilirubin 0.6 mg/dL (0.2-1.3) 11/01/16 08:07 AST 35 U/L (17-59) 11/01/16 08:07 ALT 27 U/L (21-72) 11/01/16 08:07 Alkaline Phosphatase 74 U/L (38-126) 11/01/16 08:07 Total Protein 7.6 g/dL (6.3-8.3) 11/01/16 08:07 Albumin 2.8 g/dL (3.5-5.0) L 11/01/16 08:07 Globulin 4.9 gm/dL (2.2-3.9) H 11/01/16 08:07 Albumin/Globulin Ratio 0.6 (1.0-2.1) L 11/01/16 08:07 Procalcitonin 0.05 NG/ML (0.19-0.49) L 10/29/16 20:07 HIV 1&2 Antibody Screen Negative (NEGATIVE) 10/30/16 19:44 Ur L.pneumophila Ag Negative (NEGATIVE) 10/29/16 11:10 Mycoplasma pneumon IgM Negative (NEGATIVE) 10/30/16 08:02 Attending/Attestation - Attestation I have personally seen and examined this patient.: Yes I have fully participated in the care of the patient.: Yes I have reviewed all pertinent clinical information, including history, physical exam and plan: Yes Notes (Text): 11/01/16 17:09 Patient seen and examined at bedside Patient has clinically improving No further complaint of cough or expectoration Patient still remained afebrile for more than 24 hours WBC still is still elevated but trending down We will discharge the patient home on oral antibiotic Patient counseled on compliance with medication and he was told that if the symptoms worsen he should come to the hospital immediately The patient verbalized understanding and he was discharged to home I agree with the above discharge note by the resident.
== END 2016-11-01 17:05 | disposition home or self-care (01) | DRG 584 ==
LOC: C.ER 07:12 → C.9E 10:09 → C.3T 14:33
PROVIDERS: ADMIT Internal Medicine; ATTEND Internal Medicine
DX: A41.9 Sepsis, unspecified organism (principal); J18.9 Pneumonia, unspecified organism; R65.20 Severe sepsis without septic shock; E03.9 Hypothyroidism, unspecified

== ENCOUNTER 2016-11-19 08:16 | Emergency (ER) | payer SELFPAY ==
[2016-11-19 08:16] VITALS: BMI 26.4
[2016-11-19 08:21] VITALS: RESP 18; TEMP 98.1; O2SAT 99
[2016-11-19] MEDS ORDERED: Albuterol-Ipratrop 3 mg / 0.5 (3 ml) UD IH STA (08:35)
[2016-11-19] MEDS ORDERED: Albuterol-Ipratrop 3 mg / 0.5 (3 ml) UD ONE (08:55)
--- NOTE | 2016-11-19 08:57 | C.PDOC ---
History Of Present Illness 51 y/o male presents to the ED with complaints of cough x5 days with associated fever. Denies SOB, sore throat, vomiting or any other complaints. Pt denies past medical problems except pneumonia in the past. Time Seen by Provider: 11/19/16 08:22 Chief Complaint (Nursing): Cough, Cold, Congestion History Per: Patient History/Exam Limitations: no limitations Onset/Duration Of Symptoms: Days Current Symptoms Are (Timing): Still Present Severity: Moderate Recent travel outside of the [place]: No Past Medical History Reviewed: Historical Data, Nursing Documentation, Vital Signs Vital Signs: Last Vital Signs Temp 98.1 F 11/19/16 08:20 Pulse 89 11/19/16 09:44 Resp 18 11/19/16 09:44 BP 103/58 L 11/19/16 09:44 Pulse Ox 99 11/19/16 09:49 - Medical History PMH: Hypothyroidism, Pneumonia Surgical History: No Surg Hx Family History: States: Unknown Family Hx - Social History Hx Tobacco Use: No Hx Alcohol Use: No Hx Substance Use: No - Immunization History Hx Tetanus Toxoid Vaccination: Yes Hx Influenza Vaccination: No Hx Pneumococcal Vaccination: No Review Of Systems Except As Marked, All Systems Reviewed And Found Negative. Constitutional: Positive for: Fever ENT: Negative for: Throat Pain Respiratory: Positive for: Cough. Negative for: Shortness of Breath Gastrointestinal: Negative for: Vomiting Physical Exam - Physical Exam Appears: Non-toxic, No Acute Distress Skin: Warm, Dry, No Rash Head: Atraumatic, Normacephalic Ear(s): Bilateral: Normal Nose: Normal Oral Mucosa: Moist Throat: Normal, No Erythema Neck: Normal, Normal ROM, Supple Chest: Symmetrical, No Tenderness Cardiovascular: Rhythm Regular, No Murmur Respiratory: Normal Breath Sounds, No Rales, No Rhonchi, No Wheezing Gastrointestinal/Abdominal: Normal Exam, Soft, No Tenderness Extremity: Bilateral: Atraumatic Neurological/Psych: Oriented x3, Normal Speech Gait: Steady ED Course And Treatment O2 Sat by Pulse Oximetry: 99 (room air) Pulse Ox Interpretation: Normal - Radiology CXR: Interpreted by Tn CXR Interpretation: Yes: No Acute Disease, Cardiomegaly - Other Rad No standard instances X-Ray: Read By Radiologist Interpretation: FINDINGS: LUNGS: Prominent consolidative changes at both lung bases with associated questionable bilateral pleural effusions. Diffuse increased interstitial lung markings throughout both lungs. Scattered nodular densities within the upper to mid lung zones bilaterally. Biapical pleural thickening. Right hilar prominence. PLEURA: As above. CARDIOVASCULAR: Cardiomegaly. OSSEOUS STRUCTURES: Degenerative changes in the spine with loss of height of a few thoracic vertebral bodies. VISUALIZED UPPER ABDOMEN: Few distended loops of bowel in the upper abdomen. OTHER FINDINGS: None. IMPRESSION: Prominent consolidative changes at both lung bases with associated questionable bilateral pleural effusions. Diffuse increased interstitial lung markings throughout both lungs. Scattered nodular densities within the upper to mid lung zones bilaterally. Biapical pleural thickening. Right hilar prominence. Progress Note: Plan: CXR, breathing treatment. On re-evaluation lungs clear Reassessment Condition: Improved Disposition Counseled Patient/Family Regarding: Studies Performed, Diagnosis, Need For Followup, Rx Given - Disposition 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 - Scribe Statement The provider has reviewed the documentation as recorded by the Otilia murphy All medical record entries made by the Scribe were at my direction and personally dictated by me. I have reviewed the chart and agree that the record accurately reflects my personal performance of the history, physical exam, medical decision making, and the department course for this patient. I have also personally directed, reviewed, and agree with the discharge instructions and disposition.
--- NOTE | 2016-11-19 09:45 | RAD ---
HISTORY: SOB COMPARISON: No prior. TECHNIQUE: Chest PA and lateral FINDINGS: LUNGS: Prominent consolidative changes at both lung bases with associated questionable bilateral pleural effusions. Diffuse increased interstitial lung markings throughout both lungs. Scattered nodular densities within the upper to mid lung zones bilaterally. Biapical pleural thickening. Right hilar prominence. PLEURA: As above. CARDIOVASCULAR: Cardiomegaly. OSSEOUS STRUCTURES: Degenerative changes in the spine with loss of height of a few thoracic vertebral bodies. VISUALIZED UPPER ABDOMEN: Few distended loops of bowel in the upper abdomen. OTHER FINDINGS: None. IMPRESSION: Prominent consolidative changes at both lung bases with associated questionable bilateral pleural effusions. Diffuse increased interstitial lung markings throughout both lungs. Scattered nodular densities within the upper to mid lung zones bilaterally. Biapical pleural thickening. Right hilar prominence.
[2016-11-19 09:46] VITALS: BP 103/58; PULSE 89
== END 2016-11-19 09:52 | disposition home or self-care (01) ==
LOC: C.ER 08:16
DX: J06.9 Acute upper respiratory infection, unspecified (principal)

== ENCOUNTER 2017-01-01 05:42 | Inpatient (IN) | payer SELFPAY ==
[2017-01-01 05:42] VITALS: BMI 26.4
[2017-01-01] MEDS ORDERED: Sodium Chloride 0.9% 1,000 ML IV ONE (06:02)
--- NOTE | 2017-01-01 06:04 | C.PDOC ---
History Of Present Illness Patient is a 51 y/o male that presents to the ED for evaluation of vertigo associated with nausea and vomiting for that began 5 hours ago. Also notes occasional palpitation. Otherwise, denies any headache, weakness, numbness, chest pain, shortness of breath, or any other associated symptoms at this time. Chief Complaint (Nursing): Dizziness/Lightheaded History Per: Patient History/Exam Limitations: no limitations Onset/Duration Of Symptoms: Hrs (5) Current Symptoms Are (Timing): Still Present Possible Causative Factor(s): Vertigo Fall Associated With With Symptoms: No Recent travel outside of the [place]: No Additional History Per: Patient Past Medical History Reviewed: Historical Data, Nursing Documentation, Vital Signs Vital Signs: Last Vital Signs Temp 97.9 F 01/01/17 05:49 Pulse 82 01/01/17 05:49 Resp 16 01/01/17 05:49 BP 110/72 01/01/17 05:49 Pulse Ox 98 01/01/17 06:36 - Medical History PMH: Hypothyroidism, Pneumonia Denies: Chronic Kidney Disease Family History: States: Unknown Family Hx - Social History Hx Tobacco Use: No Hx Alcohol Use: No Hx Substance Use: No - Immunization History Hx Tetanus Toxoid Vaccination: Yes Hx Influenza Vaccination: No Hx Pneumococcal Vaccination: No Review Of Systems Except As Marked, All Systems Reviewed And Found Negative. Constitutional: Negative for: Fever, Chills Cardiovascular: Positive for: Palpitations. Negative for: Chest Pain, Light Headedness Respiratory: Negative for: Shortness of Breath Gastrointestinal: Positive for: Nausea, Vomiting. Negative for: Abdominal Pain , Diarrhea Musculoskeletal: Negative for: Neck Pain Neurological: Positive for: Dizziness. Negative for: Weakness, Numbness, Headache Physical Exam - Physical Exam Appears: Non-toxic, No Acute Distress Skin: Normal Color, Warm, Dry Head: Atraumatic, Normacephalic Eye(s): bilateral: EOMI, Other (nystagmus) Neck: Normal ROM, Supple, No Other (no rigidity) Chest: Symmetrical Cardiovascular: Rhythm Regular, No Murmur Respiratory: Normal Breath Sounds, No Rales, No Rhonchi, No Wheezing Gastrointestinal/Abdominal: Soft, No Tenderness Extremity: Bilateral: Atraumatic, Normal ROM Neurological/Psych: Oriented x3, Normal Speech, Normal Cognition, Normal Motor, Normal Sensation, Other (no focal deficits, neurologically intact) ED Course And Treatment - Laboratory Results Result Diagrams: 01/01/17 06:17 O2 Sat by Pulse Oximetry: 98 (on RA) Pulse Ox Interpretation: Normal Progress Note: Blood work, head CT, EKG ordered and reviewed. Patient was treated with Ativan, Antivert, and IV fluids. Disposition - Disposition Referrals: [facility] [Outside] Disposition Time: 07:00 Condition: STABLE - POA Present On Arrival: None - Clinical Impression Clinical Impression: Vertigo, Dizziness - Scribe Statement The provider has reviewed the documentation as recorded by the Scribe Yasmin Gresham All medical record entries made by the Reedibe were at my direction and personally dictated by me. I have reviewed the chart and agree that the record accurately reflects my personal performance of the history, physical exam, medical decision making, and the department course for this patient. I have also personally directed, reviewed, and agree with the discharge instructions and disposition. Physician Patient Turnover Patient Signed Over To: Leonard Nelson Handoff Comments: Hx of vertigo, sudden onset with N/V. awaiting head CT
[2017-01-01] MEDS ORDERED: Sodium Chloride 0.9% 1,000 ML ONE (06:14)
[2017-01-01 06:31] LABS: BASO # 0.1 K/uL (0.0-0.2); BASO % 0.8 % (0.0-2.0); EOS # 0.3 K/uL (0.0-0.7); EOS % 2.9 % (0.0-4.0); HEMATOCRIT 34.6 % (35.0-51.0); LYMPH % 20.8 % (20.0-40.0); MEAN CELL VOLUME 81.9 fL (80.0-94.0); MEAN CORPUSCULAR HEMOGLOBIN 26.3 pg (27.0-31.0); MEAN CORPUSCULAR HGB CONC 32.1 g/dL (33.0-37.0); MEAN PLATELET VOLUME 7.5 fL (7.2-11.7); MONO # 0.5 K/uL (0.0-0.8); MONO % 5.1 % (0.0-10.0); NRBC % 0.1 % (0.0-2.0); RED CELL DISTRIBUTION WIDTH 18.5 % (11.5-14.5); WHITE BLOOD COUNT 9.8 K/uL (4.8-10.8)
[2017-01-01 06:39] LABS: CHLORIDE 101 mmol/L (98-107); POTASSIUM 4.2 mmol/L (3.6-5.2); SODIUM 133 mmol/L (132-148)
[2017-01-01 06:42] LABS: ALB/GLOB RATIO 0.5 (1.0-2.1); ALKALINE PHOSPHATASE 76 U/L (38-126); ALT/SGPT 66 U/L (21-72); AST/SGOT 57 U/L (17-59); BILIRUBIN,TOTAL 0.5 mg/dL (0.2-1.3); BLOOD UREA NITROGEN 14 mg/dL (9-20); CARBON DIOXIDE 23 mmol/L (22-30); GFR AFRICAN-AMERICAN > 60; GLUCOSE,RANDOM 138 mg/dL (75-110); TOTAL PROTEIN 7.6 g/dL (6.3-8.3)
[2017-01-01 06:43] LABS: CALCIUM 6.6 mg/dl (8.6-10.4)
--- NOTE | 2017-01-01 07:09 | CT ---
EXAM: CT Head Without Intravenous Contrast CLINICAL HISTORY: 51 years old, male; Pain; Headache TECHNIQUE: Axial computed tomography images of the head/brain without intravenous contrast. This CT exam was performed using one or more of the following dose reduction techniques: automated exposure control, adjustment of the mA and/or kV according to patient size, and/or use of iterative reconstruction technique. EXAM DATE/TIME: 01/01/2017 6:02 AM COMPARISON: No relevant prior studies available. FINDINGS: Mild atrophy. No intracranial hemorrhage. No intracranial edema. No evidence of infarct. The sinuses and mastoid air cells are clear. IMPRESSION: No acute findings.
[2017-01-01] MEDS ORDERED: Calcium Gluconate 4.65 mEq/10 ml Inj IVP ONE (07:20)
[2017-01-01] MEDS ORDERED: Calcium Gluconate 4.65 mEq/10 ml Inj ONE (07:37)
--- NOTE | 2017-01-01 08:48 | RAD ---
HISTORY: dizziness COMPARISON: Chest x-ray 12/31/2016 at 8:27. CT abdomen and pelvis 06/17/2016 FINDINGS: LUNGS: Shallow lung volumes accentuate the bibasilar patchy consolidations here. Previously the bibasilar bronchiectasis was more apparent - the current progressive consolidation obscures that underlying bronchiectasis PLEURA: Bilateral pleural effusions with inferolateral pleural thickening CARDIOVASCULAR: Suboptimally assessed for shallow inspiration. Pulmonary vascular congestion possible OSSEOUS STRUCTURES: No significant abnormalities. VISUALIZED UPPER ABDOMEN: Normal. OTHER FINDINGS: None. IMPRESSION: Progressive bibasilar consolidations. Progressive infiltrates in this patient with underlying bibasilar bronchiectasis here is inferred. Inferolateral pleural effusions with pleural thickening -renoted
[2017-01-01] MEDS: Levothyroxine 88 MCG TAB PO SCH (11:48)
[2017-01-01 11:57] LABS: IRON 75 ug/dL (49-181)
--- NOTE | 2017-01-01 13:17 | CP.PCM.HP ---
History of Present Illness - History of Present Illness History of Present Illness: CC : Vertigo/ Nausea/ Vomiting HPI: Patient is a 51 year old male with past medical history of recently diagnosed TB, hypothyroidism, who presents to the ED with complaints of vertigo associated with nausea and vomiting that worsened this morning. Patient reports that his symptom of dizziness started last night around 8pm after standing up from a sitting position. Thereafter, patient went to bed and his symptoms worsened; around 2am, patient had his first episode of vomit and second episode at 5am. Patient reports that he feels dizzy with positional changes. Patient admits to blurry vision, nausea, vomiting, dizziness, occasional palpitations but denies any headache, weakness, numbness, chest pain, shortness of breath and hearing changes. PMD: Dr. Bran Stoner ) PMhx: Recent diagnosed TB ( 3 weeks ago), Hypothyroidism, Chronic acne PSHx: None FHx: None Medications: Isonazid 300 mg po daily ([place] 3 weeks ago), Synthroid 88mcg PO daily, Minocycline HCL 100mg PO BID, Vit B6 Medication given in the ER: Aspirin 325mg PO, Ca2+ gluconate 4.65meq, Ativan 0.25mg IVPB, Meclizine 25mg PO Present on Admission - Present on Admission Any Indicators Present on Admission: No Review of Systems - Constitutional Constitutional: absent: Chills, Fever, Headache - EENT Eyes: Blurred Vision, Change in Vision Ears: Dizziness. absent: Decreased Hearing, Tinnitus Nose/Mouth/Throat: Dysphagia - Cardiovascular Cardiovascular: Palpitations. absent: Chest Pain, Diaphoresis, Dyspnea - Respiratory Respiratory: absent: Cough, Dyspnea, Dyspnea on Exertion - Gastrointestinal Gastrointestinal: Nausea, Vomiting. absent: Abdominal Pain, Diarrhea - Genitourinary Genitourinary: absent: Change in Urinary Stream, Pyuria, Urinary Frequency, Urinary Urgency - Integumentary Integumentary: Acne - Neurological Neurological: Dizziness, Focal Weakness, Headaches, Weakness. absent: Abnormal Hearing, Numbness, Tingling - Endocrine Endocrine: Palpitations Past Patient History - Infectious Disease Hx of Infectious Diseases: None - Past Medical History & Family History Past Medical History?: Yes - Past Social History Smoking Status: Never Smoked - CARDIAC Hx Cardiac Disorders: No - PULMONARY Hx Pneumonia: Yes - NEUROLOGICAL Hx Neurological Disorder: No - HEENT Hx HEENT Problems: No - RENAL Hx Chronic Kidney Disease: No - ENDOCRINE/METABOLIC Hx Hypothyroidism: Yes - HEMATOLOGICAL/ONCOLOGICAL Hx Blood Disorders: No - INTEGUMENTARY Hx Dermatological Problems: No Hx Eczema: Yes - MUSCULOSKELETAL/RHEUMATOLOGICAL Hx Falls: No - GASTROINTESTINAL Hx Gastrointestinal Disorders: No - GENITOURINARY/GYNECOLOGICAL Hx Genitourinary Disorders: No - PSYCHIATRIC Hx Substance Use: No - SURGICAL HISTORY Hx Surgeries: No - ANESTHESIA Hx Anesthesia: No Meds Allergies/Adverse Reactions: Allergies Allergy/AdvReac Type Severity Reaction Status Date / Time No Known Allergies Allergy Verified 01/01/17 05:53 Physical Exam - Constitutional Appears: Well, No Acute Distress - Eye Exam Eye Exam: EOMI, Normal appearance - ENT Exam ENT Exam: Mucous Membranes Moist, Normal Exam - Respiratory Exam Respiratory Exam: Clear to Auscultation Bilateral, NORMAL BREATHING PATTERN - Cardiovascular Exam Cardiovascular Exam: REGULAR RHYTHM, +S1, +S2 - GI/Abdominal Exam GI & Abdominal Exam: Normal Bowel Sounds, Soft - Extremities Exam Extremities exam: Positive for: normal capillary refill, pedal pulses present Additional comments: Right ankle edema - Neurological Exam Neurological exam: Alert, Oriented x3 - Psychiatric Exam Psychiatric exam: Normal Affect, Normal Mood - Skin Skin Exam: Dry, Normal Color, Warm Results - Vital Signs Recent Vital Signs: Last Vital Signs Temp 97.7 F 01/01/17 07:18 Pulse 74 01/01/17 07:18 Resp 20 01/01/17 07:18 BP 116/70 01/01/17 07:18 Pulse Ox 98 01/01/17 07:18 - Labs Result Diagrams: 01/01/17 06:17 01/01/17 06:17 Labs: Laboratory Results - last 24 hr 01/01/17 01/01/17 01/01/17 11:36 11:36 11:36 Iron 75 TIBC 204 L 207 L % Saturation 37 34 Ferritin 454.0 Assessment & Plan (1) Vertigo Assessment and Plan: Neurology consult ( Dr. Spears)---> Help appreciated Possibly secondary to drug-induced (Minocycline HCl) Zofran 4mg IV Q6H prn Imaging: CT head: No acute findings Brain MRI: No acute intracranial hemorrhage. Minimal of prolonged T2 signal changes seen in the periventricular white matter which may in part be related to CSF interface artifact however the possibility of some minimal concomitant chronic sequela of small vessel disease not excluded. Mild generalized volume loss. No enhancing masses. No evidence of unusual meningeal enhancement. Carotid doppler : Duplex scan does not suggest hemodynamically significant stenosis of the right and left extracranial carotid arteries Chest X-ray: Progressive bibasilar consolidations. Progressive infiltrates in this patient with underlying bibasilar bronchiectasis here is inferred. Inferolateral pleural effusions with pleural thickening -renoted Status: Acute (2) Tuberculosis Assessment and Plan: Recent diagnosis Isonazid 300mg PO Daily F/u with PMD Status: Acute (3) Anemia Assessment and Plan: H/H on admission: .34.6 Iron studies: * Iron 75 * TIBC : 207 * % Saturation: 34 * Ferritin: 454 Monitor H/H Status: Acute (4) History of hypothyroidism Assessment and Plan: Continue home medication: * Synthroid 88mcg PO daily * F/u TSH Status: Acute (5) Edema of right ankle Assessment and Plan: f/u ankle X-ray F/u b/l Doppler Status: Acute (6) Prophylactic measure Assessment and Plan: SCD Pepcid 20mg PO BID Status: Acute
--- NOTE | 2017-01-01 14:52 | VASCLAB ---
PROCEDURE: HISTORY: Vertigo, Dizziness COMPARISON: None available. TECHNIQUE: Grayscale and duplex Doppler evaluation of the cervical carotid and vertebral arteries were performed. The common carotid, carotid bifurcations and cervical Internal Carotid Artery (ICA) and proximal External Carotid Artery (ECA) were evaluated. The vertebral arteries were evaluated for gross patency and flow direction. Report prepared by Dillan Martinez, BS, RVT FINDINGS: RIGHT CAROTID ARTERIES: 1. Common Carotid Artery: No significant focal plaque formation of the right common carotid artery. Maximum Peak Systolic velocity: 112 cm/sec: End-diastolic velocity 31 cm/sec. 2. Carotid Bifurcation: plaque formation. Maximum Peak Systolic velocity: 109 cm/sec: End-diastolic velocity 29 cm/sec. 3. Internal Carotid Artery: Plaque description: 3.1. Proximal Segment: Peak systolic velocity 81 cm/sec: End-diastolic velocity 28 cm/sec - % stenosis 0-15% 3.2. Middle Segment: Peak systolic velocity 80 cm/sec: End-diastolic velocity 31 cm/sec - % stenosis 0-15% 3.3. Distal Segment: Peak systolic velocity 72 cm/sec: End-diastolic velocity 21 cm/sec - % stenosis 0-15% 4. External Carotid Artery: No significant focal plaque formation. Peak systolic velocity 107 cm/sec 5. ICA/CCA Ratio: 1.0 LEFT CAROTID ARTERIES: 1. Common Carotid Artery: No significant focal plaque formation of the left common carotid artery. Maximum Peak Systolic velocity: 120 cm/sec: End-diastolic velocity 31 cm/sec. 2. Carotid Bifurcation: plaque formation. Maximum Peak Systolic velocity: 115 cm/sec: End-diastolic velocity 28 cm/sec. 3. Internal Carotid Artery: Plaque description: 3.1. Proximal Segment: Peak systolic velocity 99 cm/sec: End-diastolic velocity 38 cm/sec - % stenosis 0-15% 3.2. Middle Segment: Peak systolic velocity 94 cm/sec: End-diastolic velocity 39 cm/sec - % stenosis 0-15% 3.3. Distal Segment: Peak systolic velocity 81 cm/sec: End-diastolic velocity 33 cm/sec - % stenosis 0-15% 4. External Carotid Artery: No significant focal plaque formation. Peak systolic velocity 112 cm/sec 5. ICA/CCA Ratio: 1.0 VERTEBRAL ARTERIES: 1. Right Vertebral Artery: The right vertebral artery flow direction is antegrade. 2. Left Vertebral Artery: The left vertebral artery flow direction is antegrade. OTHER FINDINGS: 1. Right Brachial Blood pressure: 120 mmHg. 2. Left Brachial Blood pressure: 120 mmHg. IMPRESSION: RIGHT: Duplex scan does not suggest hemodynamically significant stenosis of the right extracranial carotid arteries. LEFT: Duplex scan does not suggest hemodynamically significant stenosis of the left extracranial carotid arteries.
[2017-01-01] MEDS ORDERED: Gadodiamide 287 MG/ML VIAL (15ML) IV ONE (17:44)
--- NOTE | 2017-01-01 18:27 | MRI ---
PROCEDURE: MRI BRAIN WITH AND WITHOUT CONTRAST HISTORY: Vertigo, dizziness COMPARISON: Comparison made with TECHNIQUE: Multiplanar, multisequence MR images of the brain were obtained with and without intravenous contrast enhancement. Approximately 14 cc of contrast material injected for this procedure FINDINGS: HEMORRHAGE: No acute parenchymal, subarachnoid or extra-axial hemorrhage. No evidence of hemosiderin deposition identified on gradient echo weighted sequence DWI: No evidence of an acute or early subacute infarction seen on diffusion imaging. . BRAIN PARENCHYMA: Minimal slightly confluent prolonged T2 signal changes most conspicuous in the perifrontal horn white matter some of which could represent FLAIR related CSF interface artifact however the possibility of some minimal on common chronic periventricular white matter ischemic changes not excluded. No additional focal areas of abnormal signal seen throughout the remainder of the substance of the brain. Mild generalized volume loss. ENHANCEMENT: No enhancing parenchymal nor extra-axial masses or collections. No evidence of unusual meningeal enhancement. VENTRICLES: No evidence of obstructive hydrocephalus CRANIUM: No acute calvarial abnormalities ORBITS: Grossly orbits and contents grossly unremarkable. PARANASAL SINUSES/MASTOIDS: These retention cyst or polypoid like mucosal thickening within the inferior margins both maxillary antra noted. There may be some minimal mucosal thickening within a few ethmoid air cells VASCULAR SYSTEM: Visualized major vascular flow voids at skull base patent. OTHER FINDINGS: None . IMPRESSION: No acute intracranial hemorrhage. Minimal of prolonged T2 signal changes seen in the periventricular white matter which may in part be related to CSF interface artifact however the possibility of some minimal concomitant chronic sequela of small vessel disease not excluded. Mild generalized volume loss. No enhancing masses. No evidence of unusual meningeal enhancement.
[2017-01-01] MEDS ORDERED: DiphenhydrAMINE 50 mg/ml Inj IVP STA (21:02)
[2017-01-01] MEDS ORDERED: MethylPREDNISolone 40 mg Vial IVP STA (21:09)
--- NOTE | 2017-01-01 23:56 | CARD ---
APPROVED REPORT EXAM: Two-dimensional and M-mode echocardiogram with Doppler and color Doppler. Other Information Quality : GoodRhythm : NSR INDICATION Dizziness and Vertigo M-Mode DIMENSIONS RVDd2.28 (2.1-3.2cm)Left Atrium (MM)3.90 (2.5-4.0cm) IVSd0.91 (0.7-1.1cm)Aortic Root3.38 (2.2-3.7cm) LVDd4.59 (4.0-5.6cm)Aortic Cusp Exc.2.21 (1.5-2.0cm) PWd0.94 (0.7-1.1cm)FS (%) 70 % LVDs1.40 (2.0-3.8cm)LVEF (%)95 (>50%) Mitral Valve MV E Bvnpcmje429.6cm/sMV A Wbuboqyj622.8cm/sE/A ratio1.1 TDI E/Lateral E'0.0E/Medial E'0.0 Tricuspid Valve TR Peak [id number]/sTR Peak Gr.[id number] LEFT VENTRICLE The left ventricle is normal size. There is normal left ventricular wall thickness. Left ventricle systolic function is normal. The Ejection Fraction is >70%. There is normal LV segmental wall motion. The left ventricular diastolic function is normal. There is no ventricular septal defect visualized. RIGHT VENTRICLE The right ventricle is normal size. The right ventricular systolic function is normal. ATRIA The left atrium is borderline dilated. The right atrium size is normal. AORTIC VALVE The aortic valve is tri-cuspid. The aortic valve is normal in structure. No aortic regurgitation is present. There is no aortic valvular stenosis. MITRAL VALVE The mitral valve is normal in structure. There is no evidence of mitral valve prolapse. There is no mitral valve regurgitation noted. TRICUSPID VALVE The tricuspid valve is normal in structure. There is trace tricuspid regurgitation. Right ventricular systolic pressure is estimated at 30-40 mmHg. There is mild pulmonary hypertension. PULMONIC VALVE The pulmonary valve is normal in structure. There is trace pulmonic valvular regurgitation. GREAT VESSELS The IVC is normal in size and collapses >50% with inspiration. PERICARDIAL EFFUSION There is a trace circumferential pericardial effusion. <Conclusion> There is mild pulmonary hypertension. Left ventricle systolic function is normal. The Ejection Fraction is >70%.
[2017-01-02] MEDS: Levothyroxine 88 MCG TAB PO SCH (07:03)
[2017-01-02 07:42] LABS: BASO % 0.1 % (0.0-2.0); EOS % 0.1 % (0.0-4.0); MONO # 0.2 K/uL (0.0-0.8)
[2017-01-02 07:45] LABS: ALB/GLOB RATIO 0.5 (1.0-2.1); ALKALINE PHOSPHATASE 61 U/L (38-126); ALT/SGPT 56 U/L (21-72); AST/SGOT 56 U/L (17-59); BILIRUBIN,TOTAL 0.5 mg/dL (0.2-1.3); BLOOD UREA NITROGEN 11 mg/dL (9-20); CALCIUM 7.2 mg/dl (8.6-10.4); CARBON DIOXIDE 26 mmol/L (22-30); CHLORIDE 103 mmol/L (98-107); GFR AFRICAN-AMERICAN > 60; GLUCOSE,RANDOM 152 mg/dL (75-110); MAGNESIUM 1.6 mg/dL (1.6-2.3); PHOSPHOROUS 4.9 mg/dL (2.5-4.5); POTASSIUM 4.3 mmol/L (3.6-5.2); SODIUM 132 mmol/L (132-148)
[2017-01-02] MEDS: Dextrose 5%/0.45% NS 1,000 ML IV SCH (08:00)
[2017-01-02 08:11] LABS: HEMATOCRIT 33.4 % (35.0-51.0); LYMPH # 2.2 K/uL (1.0-4.3); LYMPH % 10.1 % (20.0-40.0); MEAN CELL VOLUME 81.9 fL (80.0-94.0); MEAN CORPUSCULAR HGB CONC 31.8 g/dL (33.0-37.0); MONO % 0.7 % (0.0-10.0); RED CELL DISTRIBUTION WIDTH 19.1 % (11.5-14.5)
[2017-01-02 08:15] LABS: WHITE BLOOD COUNT 21.6 K/uL (4.8-10.8)
[2017-01-02 08:50] LABS: FOLATE 5.4 ng/mL
--- NOTE | 2017-01-02 09:40 | CP.PCM.PN ---
Subjective - Date & Time of Evaluation Date of Evaluation: 01/02/17 Time of Evaluation: 10:00 - Subjective Subjective: Patient was seen and examined at bedside. Patient c/o of dizziness with ambulation. He also stated that he's had swelling and erythema in his legs b/l that has resolved and is now only persistent in his ankles. He denies chest pain , shortness of breath, headache, fever, bleeding, palpitations, n/v/d/c. Objective - Vital Signs/Intake and Output Vital Signs (last 24 hours): Temp Pulse Resp BP Pulse Ox 97.7 F 73 18 100/51 L 98 01/02/17 07:30 01/02/17 07:30 01/02/17 07:30 01/02/17 07:30 01/02/17 07:30 - Medications Medications: Current Medications Clopidogrel Bisulfate (Plavix) 75 mg PO DAILY [facility] Famotidine (Pepcid) 20 mg PO BID [facility] Last Admin: 01/01/17 18:04 Dose: 20 mg Dextrose/Sodium Chloride (Dextrose 5%/0.45% Ns 1000 Ml) 1,000 mls @ 100 mls/hr IV .Q10H [facility] Isoniazid (Niazid) 300 mg PO DAILY [facility] Last Admin: 01/01/17 11:48 Dose: 300 mg Levothyroxine Sodium (Synthroid) 88 mcg PO DAILY@0630 [facility] Last Admin: 01/02/17 07:03 Dose: 88 mcg Ondansetron HCl (Zofran Inj) 4 mg IVP Q6H PRN PRN Reason: Nausea/Vomiting - Labs Labs: 01/02/17 07:20 01/02/17 07:20 - Constitutional Appears: Well - Head Exam Head Exam: ATRAUMATIC, NORMAL INSPECTION, NORMOCEPHALIC - Eye Exam Eye Exam: EOMI, Normal appearance, PERRL - ENT Exam ENT Exam: Mucous Membranes Moist, Normal Exam - Neck Exam Neck Exam: Full ROM, Normal Inspection. absent: Lymphadenopathy - Respiratory Exam Respiratory Exam: Clear to Ausculation Bilateral, NORMAL BREATHING PATTERN - Cardiovascular Exam Cardiovascular Exam: REGULAR RHYTHM, +S1, +S2. absent: Murmur - GI/Abdominal Exam GI & Abdominal Exam: Soft, Normal Bowel Sounds. absent: Tenderness - Rectal Exam Rectal Exam: Deferred - Extremities Exam Extremities Exam: Pedal Edema Additional comments: ankle edema bilaterally - Neurological Exam Neurological Exam: Alert, Awake, Oriented x3 - Psychiatric Exam Psychiatric exam: Normal Affect, Normal Mood - Skin Skin Exam: Dry, Intact, Normal Color, Warm Assessment and Plan - Assessment and Plan (Free Text) Assessment: (1) Vertigo Assessment and Plan: 01/02: HIV antibody 1 and 2 screen ordered Neurology consult ( Dr. Spears)---> Help appreciated Possibly secondary to drug-induced (Minocycline HCl - discontinued) Zofran 4mg IV Q6H prn Imaging: ECHO: mild pulmonary hypertension. normal left ventricle, normal EF. CT head: No acute findings Brain MRI: No acute intracranial hemorrhage. Minimal of prolonged T2 signal changes seen in the periventricular white matter which may in part be related to CSF interface artifact however the possibility of some minimal concomitant chronic sequela of small vessel disease not excluded. Mild generalized volume loss. No enhancing masses. No evidence of unusual meningeal enhancement. Carotid doppler : Duplex scan does not suggest hemodynamically significant stenosis of the right and left extracranial carotid arteries Chest X-ray: Progressive bibasilar consolidations. Progressive infiltrates in this patient with underlying bibasilar bronchiectasis here is inferred. Inferolateral pleural effusions with pleural thickening -renoted Status: Acute (2) Tuberculosis Assessment and Plan: 01/02: quantiferon test ordered, f/u holding Isonazid 300mg PO Daily - possibly related to lower extremity erythema and swelling F/u with PMD Status: Acute (3) Anemia Assessment and Plan: H/H on admission: 11.34.6 Iron studies: * Iron 75 * TIBC : 207 * % Saturation: 34 * Ferritin: 454 Monitor H/H Status: Acute (4) History of hypothyroidism Assessment and Plan: Continue home medication: * Synthroid 88mcg PO daily * TSH normal Status: Acute (5) Edema of right ankle Assessment and Plan: ankle X-ray: No fracture or arthritis. Mild circumferential soft tissue swelling bilaterally. F/u b/l Doppler Status: Acute (6) Prophylactic measure Assessment and Plan: SCD Pepcid 20mg PO BID Status: Acute
--- NOTE | 2017-01-02 11:37 | RAD ---
PROCEDURE: Bilateral Ankle Radiographs. HISTORY: edema COMPARISON: None FINDINGS: BONES: Right Ankle: Normal. No fracture. Left Ankle: Normal. No fracture. JOINTS: Right Ankle: Normal. No osteoarthritis. Ankle mortise maintained. Talar dome intact. Left Ankle: Normal. No osteoarthritis. Ankle mortise maintained. Talar dome intact. SOFT TISSUES: Right Ankle: Mild circumferential soft tissue swelling Left Ankle: Mild circumferential soft tissue swelling. OTHER FINDINGS: None. IMPRESSION: No fracture or arthritis. Mild circumferential soft tissue swelling bilaterally.
[2017-01-02 11:39] LABS: THYROID STIMULATING HORMONE 4.51 mIU/L (0.46-4.68)
--- NOTE | 2017-01-02 19:02 | CP.PCM.CON ---
History of Present Illness - History of Present Illness History of Present Illness: dictated Past Patient History - Infectious Disease Hx of Infectious Diseases: None - Past Medical History & Family History Past Medical History?: Yes - Past Social History Smoking Status: Never Smoked - CARDIAC Hx Cardiac Disorders: No - PULMONARY Hx Pneumonia: Yes - NEUROLOGICAL Hx Neurological Disorder: No - HEENT Hx HEENT Problems: No - RENAL Hx Chronic Kidney Disease: No - ENDOCRINE/METABOLIC Hx Hypothyroidism: Yes - HEMATOLOGICAL/ONCOLOGICAL Hx Blood Disorders: No - INTEGUMENTARY Hx Dermatological Problems: No Hx Eczema: Yes - MUSCULOSKELETAL/RHEUMATOLOGICAL Hx Falls: No - GASTROINTESTINAL Hx Gastrointestinal Disorders: No - GENITOURINARY/GYNECOLOGICAL Hx Genitourinary Disorders: No - PSYCHIATRIC Hx Substance Use: No - SURGICAL HISTORY Hx Surgeries: No - ANESTHESIA Hx Anesthesia: No Meds Allergies/Adverse Reactions: Allergies Allergy/AdvReac Type Severity Reaction Status Date / Time No Known Allergies Allergy Verified 01/01/17 05:53 - Medications Medications: Current Medications Clopidogrel Bisulfate (Plavix) 75 mg PO DAILY [facility] Last Admin: 01/02/17 10:28 Dose: 75 mg Famotidine (Pepcid) 20 mg PO BID [facility] Last Admin: 01/02/17 18:06 Dose: 20 mg Dextrose/Sodium Chloride (Dextrose 5%/0.45% Ns 1000 Ml) 1,000 mls @ 100 mls/hr IV .Q10H [facility] Last Admin: 01/02/17 08:00 Dose: 100 mls/hr Isoniazid (Niazid) 300 mg PO DAILY [facility] Last Admin: 01/01/17 11:48 Dose: 300 mg Levothyroxine Sodium (Synthroid) 88 mcg PO DAILY@0630 [facility] Last Admin: 01/02/17 07:03 Dose: 88 mcg Ondansetron HCl (Zofran Inj) 4 mg IVP Q6H PRN PRN Reason: Nausea/Vomiting Results - Vital Signs Recent Vital Signs: Last Vital Signs Temp 98.0 F 01/02/17 15:35 Pulse 99 H 01/02/17 17:00 Resp 20 01/02/17 15:35 BP 109/58 L 01/02/17 15:35 Pulse Ox 98 01/02/17 15:35 - Labs Result Diagrams: 01/02/17 07:20 01/02/17 07:20 Labs: Laboratory Results - last 24 hr 07/01/02/17 01/02/17 07:20 07:20 07:20 WBC 21.6 H D RBC 4.08 L Hgb 10.6 L Hct 33.4 L MCV 81.9 MCH 26.0 L MCHC 31.8 L RDW 19.1 H Plt Count 442 H MPV 8.0 Neut % (Auto) 89.0 H Lymph % (Auto) 10.1 L [place] % (Auto) 0.7 Eos % (Auto) 0.1 Baso % (Auto) 0.1 Neut # 19.3 H Lymph # 2.2 [place] # 0.2 Eos # 0.0 Baso # 0.0 Sodium 132 Potassium 4.3 Chloride 103 Carbon Dioxide 26 Anion Gap 7 L BUN 11 Creatinine 0.5 L Est GFR ( Amer) > 60 Est GFR (Non-Af Amer) > 60 Random Glucose 152 H Calcium 7.2 L Phosphorus 4.9 H Magnesium 1.6 Transferrin Total Bilirubin 0.5 AST 56 ALT 56 Alkaline Phosphatase 61 Total Protein 7.0 Albumin 2.2 L Globulin 4.8 H Albumin/Globulin Ratio 0.5 L Vitamin B12 845 Folate 5.4 TSH 3rd Generation 4.51 RPR Nonreactive 01/02/17 07:20 WBC RBC Hgb Hct MCV MCH MCHC RDW Plt Count MPV Neut % (Auto) Lymph % (Auto) [place] % (Auto) Eos % (Auto) Baso % (Auto) Neut # Lymph # [place] # Eos # Baso # Sodium Potassium Chloride Carbon Dioxide Anion Gap BUN Creatinine Est GFR ( Amer) Est GFR (Non-Af Amer) Random Glucose Calcium Phosphorus Magnesium Transferrin 130.36 L Total Bilirubin AST ALT Alkaline Phosphatase Total Protein Albumin Globulin Albumin/Globulin Ratio Vitamin B12 Folate TSH 3rd Generation RPR Assessment & Plan (1) PPD+ (purified protein derivative positive) Status: Acute (2) History of hypothyroidism Status: Acute (3) Vertigo Status: Acute
[2017-01-02] MEDS: Vancomycin 1 gm/NS 200 ml 1 GM/200 ML BAG IVPB SCH (22:25)
[2017-01-03] MEDS ORDERED: Piperacillin/Tazobact 3.375 GM in Sodium Chloride 100 ML IVPB SCH
--- NOTE | 2017-01-03 00:03 | CP.PCM.PN ---
Subjective - Date & Time of Evaluation Date of Evaluation: 01/03/17 Time of Evaluation: 01:00 - Subjective Subjective: Medicine Note (PGY 1) : Dr. Melinda Gresham Patient was seen and examined at bedside. Patient reports that he is doing well. Patient denies chest pain, sob, nausea, vomiting, abdominal pain, fever and chills. Patient is tolerating diet and ambulating. Objective - Vital Signs/Intake and Output Vital Signs (last 24 hours): Temp Pulse Resp BP Pulse Ox 98.0 F 99 H 20 109/58 L 98 01/02/17 15:35 01/02/17 17:00 01/02/17 15:35 01/02/17 15:35 01/02/17 15:35 Intake and Output: 01/02/17 01/03/17 18:59 06:59 Intake Total 1000 Balance 1000 - Medications Medications: Current Medications Clopidogrel Bisulfate (Plavix) 75 mg PO DAILY [facility] Last Admin: 01/02/17 10:28 Dose: 75 mg Famotidine (Pepcid) 20 mg PO BID [facility] Last Admin: 01/02/17 18:06 Dose: 20 mg Dextrose/Sodium Chloride (Dextrose 5%/0.45% Ns 1000 Ml) 1,000 mls @ 100 mls/hr IV .Q10H [facility] Last Admin: 01/02/17 08:00 Dose: 100 mls/hr Vancomycin/Sodium Chloride (Vancocin) 1 gm in 200 mls @ 133 mls/hr IVPB Q12H [facility] Stop: 01/07/17 22:01 Last Admin: 01/02/17 22:25 Dose: 133 mls/hr Piperacillin Sod/Tazobactam Sod (Zosyn 3.375 Gm Iv Premix) 3.375 gm in 50 mls @ 100 mls/hr IVPB Q6 MARY ELLEN Isoniazid (Niazid) 300 mg PO DAILY [facility] Last Admin: 01/01/17 11:48 Dose: 300 mg Levothyroxine Sodium (Synthroid) 88 mcg PO DAILY@0630 [facility] Last Admin: 01/02/17 07:03 Dose: 88 mcg Ondansetron HCl (Zofran Inj) 4 mg IVP Q6H PRN PRN Reason: Nausea/Vomiting - Labs Labs: 01/02/17 07:20 01/02/17 07:20 - Constitutional Appears: Well, No Acute Distress - Head Exam Head Exam: NORMAL INSPECTION, NORMOCEPHALIC - Eye Exam Eye Exam: EOMI, Normal appearance - ENT Exam ENT Exam: Mucous Membranes Moist, Normal Exam - Respiratory Exam Respiratory Exam: Clear to Ausculation Bilateral, NORMAL BREATHING PATTERN - Cardiovascular Exam Cardiovascular Exam: REGULAR RHYTHM, +S1, +S2 - GI/Abdominal Exam GI & Abdominal Exam: Soft, Normal Bowel Sounds - Extremities Exam Extremities Exam: Pedal Edema - Neurological Exam Neurological Exam: Alert, Awake, Oriented x3 - Psychiatric Exam Psychiatric exam: Normal Affect, Normal Mood - Skin Skin Exam: Dry, Normal Color, Warm Assessment and Plan (1) Vertigo Assessment & Plan: Possibly secondary to drug-induced (Minocycline HCl - discontinued) * Zofran 4mg IV Q6H prn --> for associated nausea and vomiting Neurology consult ( Dr. Spears)---> Help appreciated As per neurology: * Hydration * Meclizine PRN * Plavix * Out of bed * No further work up needed 01/02: HIV antibody 1 and 2 screen ordered: Negative RPR: Negative Imaging: ECHO: mild pulmonary hypertension. normal left ventricle, normal EF. CT head: No acute findings Brain MRI: No acute intracranial hemorrhage. Minimal of prolonged T2 signal changes seen in the periventricular white matter which may in part be related to CSF interface artifact however the possibility of some minimal concomitant chronic sequela of small vessel disease not excluded. Mild generalized volume loss. No enhancing masses. No evidence of unusual meningeal enhancement. Carotid doppler : Duplex scan does not suggest hemodynamically significant stenosis of the right and left extracranial carotid arteries Chest X-ray: Progressive bibasilar consolidations. Progressive infiltrates in this patient with underlying bibasilar bronchiectasis here is inferred. Inferolateral pleural effusions with pleural thickening -renoted Status: Acute (2) Tuberculosis Assessment & Plan: 01/02: quantiferon test ordered, f/u F/U CT chest holding Isonazid 300mg PO Daily - possibly related to lower extremity erythema and swelling F/u with PMD Status: Acute (3) Fever Assessment & Plan: Resolved ID consult (Dr. Carias)---> Help appreciated Tmax: 100.6 (01/01/17) No wbc increase Blood culture/ gram stain : (+) for gram positive cocci/ Coagulase negative staphylococcus Vancomycin 1gm IVPB Q12H (Day 2) Zosyn 3.375gm IVPB Q6H (DAY 1) Status: Acute (4) Anemia Assessment & Plan: H/H on admission: 11.1/34.6 Iron studies: * Iron 75 * TIBC : 207 * % Saturation: 34 * Ferritin: 454 Monitor H/H Status: Acute (5) History of hypothyroidism Assessment & Plan: Continue home medication: * Synthroid 88mcg PO daily * TSH normal Status: Acute (6) Edema of right ankle Assessment & Plan: Ankle X-ray: No fracture or arthritis. Mild circumferential soft tissue swelling bilaterally. Pending b/l Doppler report Status: Acute (7) Prophylactic measure Assessment & Plan: SCD Pepcid 20mg PO BID Status: Acute
[2017-01-03] MEDS: Piperacill/Tazo 3.375gm in Dex 3.375 GM/50 ML BAG IVPB SCH ×4 (00:36→17:30)
[2017-01-03] MEDS: Dextrose 5%/0.45% NS 1,000 ML IV SCH (05:08)
[2017-01-03] MEDS: Levothyroxine 88 MCG TAB PO SCH (05:50)
--- NOTE | 2017-01-03 06:31 | CON ---
DATE: 01/02/2017 HISTORY OF PRESENT ILLNESS This patient was seen in [facility]. Patient of Dr. Ian Gresham. This patient is a 51-year-old male. He was admitted with history of TB, hypothyroidism, but I found out that he was only on TB medication, one of them INH, so it could be that he is only on it. 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 He presented with vertigo, also was having nausea and vomiting. He does complain of right ear problem. He states his right ear has been popping and he is having some hearing changes. He may have vertigo and may have acute labyrinthitis. This started for 10-11 hours he says and he also started to vomit, feels dizzy with position change. He is on minocycline for his acne. He had pneumonia a few weeks ago and he speaks mostly French, so was not able to tell. Most of these results were taken from the chart, however, he came in with vertigo, nausea, and vomiting and I think he has acute labyrinthitis. He did point to his right ear having problem. PAST MEDICAL HISTORY: Significant for hypothyroidism, chronic acne. MEDICATIONS: He is only on INH, B6, Synthroid, and minocycline and he was given meclizine. REVIEW OF SYSTEMS: He had some tests done. He is in isolation at the present time. He denies any fever, chills or any headaches. Denies any blurring of vision. Denies any hearing loss or any hearing noises or decreasing hearing. He did complain of some sore throat. Denies palpitations. No shortness of breath, no cough, no cold, no nausea. He did have vomiting he said. Denied any abdominal pain. No diarrhea. No urinary symptoms, urgency, frequency or hematuria. Denies any focal weakness, but was feeling dizzy and had some palpitations and he denies any other illness at this time. ALLERGIES: HE IS NOT ALLERGIC TO ANY MEDICINE. PHYSICAL EXAMINATION GENERAL: He is able to answer questions. VITAL SIGNS: Temperature is 98, pulse 83, blood pressure 109/58, respirations are 20. HEENT: Head is atraumatic, normocephalic. Pupils are reacting to light. There is no tenderness pre or post-auricular area. Throat, no congestion or thrusting. NECK: Supple. JVP is flat. LUNGS: Clear. No crackles or rales present. HEART: S1 and S2 are regular. No murmurs appreciated. ABDOMEN: Soft, nontender, no guarding, no rigidity present. EXTREMITIES: He has some edema on the right ankle, otherwise was unremarkable. LABORATORY DATA: Show white count is 9.8, hemoglobin 11.1, hematocrit 34.6, platelet count is 428. BUN is 14, creatinine 0.5, and his white count went to 21.6, but as he got a shot of steroids, I am not sure for what in the ER hemoglobin is 10.6 and hematocrit is 33.4, BUN is 7, creatinine 0.5. RVR is nonreactive. He had lower extremity ulcers. He had an ankle x-ray for swelling. He also had a brain MRI, which shows no enhancing masses, no evidence of unusual meningeal enhancements and he also had a chest x-ray. ASSESSMENT AND PLAN: Chest x-ray shows progressive bibasilar consolidations, progressive infiltrates in a patient with underlying bibasilar bronchiectasis. It is inferred in light of parietal pleural effusion and pleural thickening noted. So, I think at this time, since he is in isolation, it may be worthwhile if he has some sputum to be sent and looked up for AFB as he does have infiltrates. He did have a chest CT on 09/11/2016, at that time findings it said chronic pulmonary parenchymal findings, basilar distribution, slightly improved compared to prior study. No new or suspicious abnormalities identified. So, may need to follow up a CAT scan also at this time and leave him in isolation. I have ordered a CT of the chest with and without contrast to evaluate his lungs better and will follow. Reason for exam is active TB and compare to old CT scan and will follow. So, we will do that for now, it seems like he has vertigo and he is on INH and I am told that they are not able to get in touch with Dr. Stoner at this time, so we will keep him in isolation and will follow. Kofi Carias MD
--- NOTE | 2017-01-03 07:00 | CP.PCM.CON ---
History of Present Illness - History of Present Illness History of Present Illness: PATIENT WAS SEEN YESTERDAY MORNING AROUND 07:00 AM AND DICTATED IN THE CONSULT ON THE DICTAPHONE. IT IS NOT FOUND UNTIL NOW PATIENT IS PRESENTING WITH A WEEK HX OF VERTIGO WITH TINNITUS IN HIS RIGHT EAR. ASSOCIATED WITH NAUSEA AND SOME BALANCE NEVER HAD THIS PROBLEM BEFORE DENIES VISUAL, BULBAR, SENSORY OR MOTOR DYSFUNCTION Past Patient History - Infectious Disease Hx of Infectious Diseases: None - Past Medical History & Family History Past Medical History?: Yes - Past Social History Smoking Status: Never Smoked - CARDIAC Hx Cardiac Disorders: No - PULMONARY Hx Pneumonia: Yes - NEUROLOGICAL Hx Neurological Disorder: No - HEENT Hx HEENT Problems: No - RENAL Hx Chronic Kidney Disease: No - ENDOCRINE/METABOLIC Hx Hypothyroidism: Yes - HEMATOLOGICAL/ONCOLOGICAL Hx Blood Disorders: No - INTEGUMENTARY Hx Dermatological Problems: No Hx Eczema: Yes - MUSCULOSKELETAL/RHEUMATOLOGICAL Hx Falls: No - GASTROINTESTINAL Hx Gastrointestinal Disorders: No - GENITOURINARY/GYNECOLOGICAL Hx Genitourinary Disorders: No - PSYCHIATRIC Hx Substance Use: No - SURGICAL HISTORY Hx Surgeries: No - ANESTHESIA Hx Anesthesia: No Meds Allergies/Adverse Reactions: Allergies Allergy/AdvReac Type Severity Reaction Status Date / Time No Known Allergies Allergy Verified 01/01/17 05:53 - Medications Medications: Current Medications Clopidogrel Bisulfate (Plavix) 75 mg PO DAILY [facility] Last Admin: 01/02/17 10:28 Dose: 75 mg Famotidine (Pepcid) 20 mg PO BID [facility] Last Admin: 01/02/17 18:06 Dose: 20 mg Dextrose/Sodium Chloride (Dextrose 5%/0.45% Ns 1000 Ml) 1,000 mls @ 100 mls/hr IV .Q10H [facility] Last Admin: 01/03/17 05:08 Dose: Not Given Vancomycin/Sodium Chloride (Vancocin) 1 gm in 200 mls @ 133 mls/hr IVPB Q12H [facility] Stop: 01/07/17 22:01 Last Admin: 01/02/17 22:25 Dose: 133 mls/hr Piperacillin Sod/Tazobactam Sod (Zosyn 3.375 Gm Iv Premix) 3.375 gm in 50 mls @ 100 mls/hr IVPB Q6 [facility] Last Admin: 01/03/17 05:05 Dose: 100 mls/hr Isoniazid (Niazid) 300 mg PO DAILY [facility] Last Admin: 01/01/17 11:48 Dose: 300 mg Levothyroxine Sodium (Synthroid) 88 mcg PO DAILY@0630 [facility] Last Admin: 01/03/17 05:50 Dose: 88 mcg Ondansetron HCl (Zofran Inj) 4 mg IVP Q6H PRN PRN Reason: Nausea/Vomiting Physical Exam - Head Exam Head Exam: ATRAUMATIC, NORMAL INSPECTION, NORMOCEPHALIC - Eye Exam Eye Exam: EOMI, Normal appearance Pupil Exam: NORMAL ACCOMODATION - Neck Exam Additional comments: NO BRUIT - Respiratory Exam Respiratory Exam: NORMAL BREATHING PATTERN - Cardiovascular Exam Cardiovascular Exam: REGULAR RHYTHM - Expanded Neurological Exam Expanded Cranial nerves: EOM's Intact: Normal, Facial Palsey w/Forehead Movement: Normal , Facial Palsey w/o Forehead Movement: Normal, Facial Sensation: Normal, Gag Reflex: Normal, Nystagmus: Normal, Tongue Deviation: Normal Cerebellar Function: Finger to Nose: Normal Upper motor neuron: Babinski Sign: Normal, Pronator Drift: Normal Sensory exam: Lower Extremity Pin Prick: Abnormal Left, Abnormal Right (MILD NEUROPATHY) Neuro motor strength exam: Left Upper Extremity: 5, Right Upper Extremity: 5, Left Lower Extremity: 5, Right Lower Extremity: 5 DTR: Achilles Tendon Left: 1+, Achilles Tendon Right: 1+, Bicep Left: 2+, Bicep Right: 2+, Brachioradialis Left: 2+, Brachioradialis Right: 2+, Patellar Left: 2 +, Patellar Right: 2+, Tricep Left: 2+, Tricep Right: 2+ Results - Vital Signs Recent Vital Signs: Last Vital Signs Temp 97.7 F 01/02/17 23:20 Pulse 58 L 01/03/17 03:30 Resp 20 01/02/17 23:20 BP 113/62 01/02/17 23:20 Pulse Ox 98 01/02/17 23:20 - Labs Result Diagrams: 01/02/17 07:20 01/02/17 07:20 Labs: Laboratory Results - last 24 hr 01/02/17 01/02/17 01/02/17 07:20 07:20 07:20 WBC 21.6 H D RBC 4.08 L Hgb 10.6 L Hct 33.4 L MCV 81.9 MCH 26.0 L MCHC 31.8 L RDW 19.1 H Plt Count 442 H MPV 8.0 Neut % (Auto) 89.0 H Lymph % (Auto) 10.1 L Crook % (Auto) 0.7 Eos % (Auto) 0.1 Baso % (Auto) 0.1 Neut # 19.3 H Lymph # 2.2 Crook # 0.2 Eos # 0.0 Baso # 0.0 Sodium 132 Potassium 4.3 Chloride 103 Carbon Dioxide 26 Anion Gap 7 L BUN 11 Creatinine 0.5 L Est GFR ( Amer) > 60 Est GFR (Non-Af Amer) > 60 POC Glucose (mg/dL) Random Glucose 152 H Calcium 7.2 L Phosphorus 4.9 H Magnesium 1.6 Transferrin Total Bilirubin 0.5 AST 56 ALT 56 Alkaline Phosphatase 61 Total Protein 7.0 Albumin 2.2 L Globulin 4.8 H Albumin/Globulin Ratio 0.5 L Vitamin B12 845 Folate 5.4 TSH 3rd Generation 4.51 RPR Nonreactive HIV 1&2 Antibody Screen 01/02/17 01/02/17 01/03/17 07:20 22:50 06:10 WBC RBC Hgb Hct MCV MCH MCHC RDW Plt Count MPV Neut % (Auto) Lymph % (Auto) Crook % (Auto) Eos % (Auto) Baso % (Auto) Neut # Lymph # Crook # Eos # Baso # Sodium Potassium Chloride Carbon Dioxide Anion Gap BUN Creatinine Est GFR ( Amer) Est GFR (Non-Af Amer) POC Glucose (mg/dL) 78 Random Glucose Calcium Phosphorus Magnesium Transferrin 130.36 L Total Bilirubin AST ALT Alkaline Phosphatase Total Protein Albumin Globulin Albumin/Globulin Ratio Vitamin B12 Folate TSH 3rd Generation RPR HIV 1&2 Antibody Screen Negative - Imaging and Cardiology MRI - head Additional comment: PROLONGED T2 SIGNALS WHICH IS NON SPECIFIC NEEDS REPEAT IN 6 MONTHS CAROTID DOPPLER NO SIG STENOSIS Assessment & Plan (1) Vestibular disequilibrium involving right inner ear Assessment and Plan: HYDRATION MECLIZINE PRN PLAVIX OOB NO FURTHER WORK UP IS NEEDED NOW Status: Acute - Date & Time Date: 01/02/17 Time: 07:00
[2017-01-03 07:43] LABS: BASO # 0.1 K/uL (0.0-0.2); BASO % 0.3 % (0.0-2.0); EOS # 0.4 K/uL (0.0-0.7); EOS % 2.4 % (0.0-4.0); HEMATOCRIT 31.1 % (35.0-51.0); LYMPH # 3.7 K/uL (1.0-4.3); LYMPH % 21.6 % (20.0-40.0); MEAN CELL VOLUME 82.4 fL (80.0-94.0); MEAN CORPUSCULAR HEMOGLOBIN 26.7 pg (27.0-31.0); MEAN CORPUSCULAR HGB CONC 32.4 g/dL (33.0-37.0); MONO # 0.7 K/uL (0.0-0.8); MONO % 4.3 % (0.0-10.0); RED CELL DISTRIBUTION WIDTH 18.9 % (11.5-14.5); WHITE BLOOD COUNT 17.3 K/uL (4.8-10.8)
[2017-01-03 08:29] LABS: CHLORIDE 102 mmol/L (98-107)
[2017-01-03 08:30] LABS: POTASSIUM 3.3 mmol/L (3.6-5.2); SODIUM 136 mmol/L (132-148)
[2017-01-03 08:32] LABS: ALB/GLOB RATIO 0.5 (1.0-2.1); AST/SGOT 52 U/L (17-59); BILIRUBIN,TOTAL 0.4 mg/dL (0.2-1.3); CARBON DIOXIDE 26 mmol/L (22-30); GFR AFRICAN-AMERICAN > 60; TOTAL PROTEIN 6.6 g/dL (6.3-8.3)
[2017-01-03 08:33] LABS: ALKALINE PHOSPHATASE 57 U/L (38-126); ALT/SGPT 60 U/L (21-72); BLOOD UREA NITROGEN 14 mg/dL (9-20); CALCIUM 7.1 mg/dl (8.6-10.4); GLUCOSE,RANDOM 85 mg/dL (75-110); MAGNESIUM 1.8 mg/dL (1.6-2.3); PHOSPHOROUS 3.8 mg/dL (2.5-4.5)
--- NOTE | 2017-01-03 09:19 | CT ---
PROCEDURE: CT Chest without contrast HISTORY: r/o active tuberculosis ,compare to old ctscan COMPARISON: Comparison is made to the previous study 09/11/2016 TECHNIQUE: Contiguous axial images were obtained through the chest without intravenous contrast enhancement. Sagittal and coronal reconstructions were performed. Radiation dose (DLP): 305.41 mGy-cm. This CT exam was performed using one or more of the following dose reduction techniques: Automated exposure control, adjustment of the mA and/or kV according to patient size, and/or use of iterative reconstruction technique. FINDINGS: LUNGS: Again seen are airspace opacities in the lungs more prominent at the lower lobes. There is associated bronchiectasis also more prominent at the lower lobes. These findings have not significantly changed when compared to the previous study. No evidence of new infiltrate or consolidation in the lungs. MEDIASTINUM: Unremarkable thoracic aorta. No aneurysm. Heart is mildly enlarged. Main pulmonary artery is mildly enlarged. Prominent mediastinal lymph nodes are again seen. PLEURA: Small/trace bilateral pleural effusions larger on the right. The pleural effusion is larger compared to the previous study. BONES: No fracture. No destructive lesion. UPPER ABDOMEN: Grossly unremarkable. OTHER FINDINGS: None. IMPRESSION: No significant interval change in the lungs since the previous exam. Interval slight increase in the size of the pleural effusion. Otherwise no significant interval change.
[2017-01-03] MEDS: Vancomycin 1 gm/NS 200 ml 1 GM/200 ML BAG IVPB SCH ×2 (09:33→22:12)
[2017-01-03] MEDS ORDERED: Potassium Chloride 20 mEq ER Tab PO SCH (12:30)
--- NOTE | 2017-01-03 13:03 | CP.PCM.PN ---
Subjective - Date & Time of Evaluation Date of Evaluation: 01/03/17 Time of Evaluation: 12:45 - Subjective Subjective: Hospitalist [place] Note (Patient was seen and examined at 12:45 PM 01/03/17 656 A) 51 Year Old Male (PMHx: Hypothyroidism, Chronic Ankle Edema, Pneumonia [ admitted here from 10/29/16 through 11/01/16], Anemia, and TB Prophylaxis) who was admitted for evaluation and treatment of intractable vertigo. He was also found to have (+) Blood Culture on 01/01/17 showing S. aureus and Coag Neg Strep. Upon FULL ROS The vertigo has imporved since the discontinuation of Minocycline and will only occur if he gets up too quickly from bed Edema of the bilateral ankles NO other complaints upon FULL ROS. Exam: HEENT: NCA, EOMI, PERRLA, NO lymphadenopathy, NO thyromegaly, NO pharyngeal erythema/exudate Cardio: NS1 and NS2, NO M/R/G, NO JVD, NO Hepatojugular Reflux Resp: CTA B/L GI: BSx4 are normal, NT, NO HSM, Soft, NO guarding rebound tenderness Ext: Pulses are strong and equal, Capillary Refill is 2 seconds, 1+ Pitting Edema from ankles to just mid tibia Neuro: CN II through XII are grossly intact Assessment and Plan: 1). Vestibular Disequilibrium Right Ear I believe that this is likely secondary to the Minocycline which has been discontinued upon his admission CT Head showed NO acute changes MRI Brain showed NO hemorrhages/mass Carotid Doppler showed NO significant stenosis Seen by Neurology Dr. Lee and started on Plavix 75 mg PO 1x/day I walked with patient on the floor and his gait was completely normal and no complaints of Vertigo while ambulating 2). TB Prophylaxis I spoke with Dr. Stoll (who was covering for PMD Dr. Bran Klein [phone] ) on 01/02/17 and he confirmed that patient was being treated with Isoniazid 300 mg PO 1x/day by Dr. Klein for TB Prophylaxis I spoke with Information Officer Dr. Mckeon and he confirmed that patient was being treated prophylactically with Isoniazid Therefore respiratory isolation was discontinued on 01/02/17 3). Anemia secondary to ? Iron studies were unremarkable F/U with Hematology as an outpatient for further workup 4). Bacteremia As per Blood Culture 01/01/17 that showed S. aureus and Coag Neg Strep Vancomycin 1 gm IV Q12H Zosyn 3.[address] Chest showed no interval change when compared to 09/11/16: airspace opacities prominent bilateral lower lobes with associated bronchiectasis with slight increase in pleural effusion Chest X Ray showed progressive bibasilar consolidation, progressive infiltrates with underlying bibasilar bronchiectasis with inferolateral pleural effusion F/U Sputum Culture ID Dr. Carias help is greatly appreciated 5). Hx Hypothyroidism Levothyroxine 88 mcg PO 1x/day 6). Possible ALL Reaction On night of 01/01/17 patient apparently had redness of face and neck and upper chest and therefore Solumedrol, Pepcid, and Benadryl were given. The Solumedrol may have contributed to the elevated WBC on 01/02/17 and is currently decreasing. 7). Hx Ankle Edema Right Ankle X Ray was unremarkable F/U Bilateral LE U/S The fluids were discontinued 01/03/17 8). Hypokalemia KCl 40 meQ x 1 dose 01/03/17 9). Prophylactic Measures Pepcid 20 mg PO 2x/day Zofran 4 mg IV Q6H PRN Objective - Vital Signs/Intake and Output Vital Signs (last 24 hours): Temp Pulse Resp BP Pulse Ox 97.5 F L 62 20 102/55 L 97 01/03/17 07:40 01/03/17 07:40 01/03/17 07:40 01/03/17 07:40 01/03/17 07:40 - Medications Medications: Current Medications Clopidogrel Bisulfate (Plavix) 75 mg PO DAILY [facility] Last Admin: 01/03/17 09:34 Dose: 75 mg Famotidine (Pepcid) 20 mg PO BID [facility] Last Admin: 01/03/17 09:34 Dose: 20 mg Dextrose/Sodium Chloride (Dextrose 5%/0.45% Ns 1000 Ml) 1,000 mls @ 100 mls/hr IV .Q10H [facility] Last Admin: 01/03/17 05:08 Dose: Not Given Vancomycin/Sodium Chloride (Vancocin) 1 gm in 200 mls @ 133 mls/hr IVPB Q12H [facility] Stop: 01/07/17 22:01 Last Admin: 01/03/17 09:33 Dose: 133 mls/hr Piperacillin Sod/Tazobactam Sod (Zosyn 3.375 Gm Iv Premix) 3.375 gm in 50 mls @ 100 mls/hr IVPB Q6 [facility] Last Admin: 01/03/17 05:05 Dose: 100 mls/hr Isoniazid (Niazid) 300 mg PO DAILY [facility] Last Admin: 01/01/17 11:48 Dose: 300 mg Levothyroxine Sodium (Synthroid) 88 mcg PO DAILY@0630 [facility] Last Admin: 01/03/17 05:50 Dose: 88 mcg Ondansetron HCl (Zofran Inj) 4 mg IVP Q6H PRN PRN Reason: Nausea/Vomiting Potassium Chloride (K-Dur 20 Meq Er Tab) 40 meq PO DAILY [facility] Saccharomyces Boulardii (Florastor) 250 mg PO BID [facility] - Labs Labs: 01/03/17 07:26 01/03/17 07:26
[2017-01-03] MEDS: Saccharomyces Boulardi 250 mg Cap PO SCH (17:13)
--- NOTE | 2017-01-04 00:05 | CP.PCM.PN ---
<[place] - Last Filed: 01/04/17 04:51> Subjective - Date & Time of Evaluation Date of Evaluation: 01/04/17 Time of Evaluation: 00:30 - Subjective Subjective: Medicine Note ( PGY 1) : Dr. Pete Gresham's service Patient was seen and examined at bedside. Patient reports that he is doing well and has no new complaints. Patient denies chest pain, sob, nausea, vomiting, fever, chills but continues to admits dizziness with positional changes. Objective - Vital Signs/Intake and Output Vital Signs (last 24 hours): Temp Pulse Resp BP Pulse Ox 98.4 F 85 20 111/64 98 01/03/17 15:00 01/03/17 15:00 01/03/17 15:00 01/03/17 15:00 01/03/17 15:00 Intake and Output: 01/03/17 01/04/17 18:59 06:59 Intake Total 932224 Balance 833199 - Medications Medications: Current Medications Clopidogrel Bisulfate (Plavix) 75 mg PO DAILY [facility] Last Admin: 01/03/17 09:34 Dose: 75 mg Famotidine (Pepcid) 20 mg PO BID [facility] Last Admin: 01/03/17 17:13 Dose: 20 mg Vancomycin/Sodium Chloride (Vancocin) 1 gm in 200 mls @ 133 mls/hr IVPB Q12H [facility] Stop: 01/07/17 22:01 Last Admin: 01/03/17 22:12 Dose: 133 mls/hr Piperacillin Sod/Tazobactam Sod (Zosyn 3.375 Gm Iv Premix) 3.375 gm in 50 mls @ 100 mls/hr IVPB Q6 [facility] Last Admin: 01/03/17 17:30 Dose: 100 mls/hr Isoniazid (Niazid) 300 mg PO DAILY [facility] Last Admin: 01/01/17 11:48 Dose: 300 mg Levothyroxine Sodium (Synthroid) 88 mcg PO DAILY@0630 [facility] Last Admin: 01/03/17 05:50 Dose: 88 mcg Ondansetron HCl (Zofran Inj) 4 mg IVP Q6H PRN PRN Reason: Nausea/Vomiting Saccharomyces Boulardii (Florastor) 250 mg PO BID [facility] Last Admin: 01/03/17 17:13 Dose: 250 mg - Labs Labs: 01/03/17 07:26 01/03/17 07:26 - Constitutional Appears: Well, No Acute Distress - Head Exam Head Exam: NORMAL INSPECTION, NORMOCEPHALIC - Eye Exam Eye Exam: EOMI, Normal appearance - ENT Exam ENT Exam: Mucous Membranes Moist, Normal Exam - Respiratory Exam Respiratory Exam: Clear to Ausculation Bilateral, NORMAL BREATHING PATTERN - Cardiovascular Exam Cardiovascular Exam: REGULAR RHYTHM, +S1, +S2 - GI/Abdominal Exam GI & Abdominal Exam: Soft, Normal Bowel Sounds - Extremities Exam Extremities Exam: Pedal Edema. absent: Tenderness - Neurological Exam Neurological Exam: Alert, Awake, Oriented x3 - Psychiatric Exam Psychiatric exam: Normal Affect, Normal Mood - Skin Skin Exam: Dry, Normal Color, Warm Assessment and Plan (1) Vertigo Assessment & Plan: Vestibular Disequilibrium Right Ear Possibly secondary to drug-induced (Minocycline HCl - discontinued) * Zofran 4mg IV Q6H prn --> for associated nausea and vomiting Neurology consult ( Dr. Spears)---> Help appreciated As per neurology: * Hydration * Meclizine PRN * Plavix * Out of bed * No further work up needed 01/02: HIV antibody 1 and 2 screen ordered: Negative RPR: Negative Imaging: ECHO: mild pulmonary hypertension. normal left ventricle, normal EF. CT head: No acute findings Brain MRI: No acute intracranial hemorrhage. Minimal of prolonged T2 signal changes seen in the periventricular white matter which may in part be related to CSF interface artifact however the possibility of some minimal concomitant chronic sequela of small vessel disease not excluded. Mild generalized volume loss. No enhancing masses. No evidence of unusual meningeal enhancement. Carotid doppler : Duplex scan does not suggest hemodynamically significant stenosis of the right and left extracranial carotid arteries Chest X-ray: Progressive bibasilar consolidations. Progressive infiltrates in this patient with underlying bibasilar bronchiectasis here is inferred. Inferolateral pleural effusions with pleural thickening -renoted Status: Acute (2) Tuberculosis Assessment & Plan: Pending quantiferon test result Holding Isonazid 300mg PO Daily - possibly related to lower extremity erythema and swelling F/u with patient's PMD regarding TB diagnosis: * As per conversation with Dr. Pete Gresham and Dr. Stoll (who was covering for PMD Dr. Bran Klein [phone]) on 01/02/17 and he confirmed that patient was being treated with Isoniazid 300 mg PO 1x/day by Dr. Klein for TB Prophylaxis Industrial Chemicals Supervisor Dr. Mckeon----> Help appreciated * Confirmed that patient was being treated prophylactically with Isoniazid * Therefore respiratory isolation was discontinued on 01/02/17 Imaging: CT chest: No significant interval change in the lungs since the previous exam. Interval slight increase in the size of the pleural effusion. Otherwise no significant interval change Chest X-ray: Progressive bibasilar consolidations. Progressive infiltrates in this patient with underlying bibasilar bronchiectasis here is inferred. Inferolateral pleural effusions with pleural thickening -renoted Status: Acute (3) Bacteremia Assessment & Plan: ID Consult ( Dr. Carias on board)---> Help appreciated Blood culture/ gram stain : (+) for gram positive cocci/ Coagulase negative staphylococcus Vancomycin 1gm IVPB Q12H (Day 3) Zosyn 3.375gm IVPB Q6H (DAY 2) Status: Acute (4) Leukocytosis Assessment & Plan: Trending down Possibly secondary to solu-medrol use on admission On admissio:9.8 01/02/17: 21.6---> 17.3 (01/03/17) Status: Acute (5) Fever Assessment & Plan: Resolved ID consult (Dr. Carias)---> Help appreciated Tmax: 100.6 (01/01/17) No WBC increase Blood culture/ gram stain : (+) for gram positive cocci/ Coagulase negative staphylococcus Vancomycin 1gm IVPB Q12H (Day 2) Zosyn 3.375gm IVPB Q6H (DAY 1) Status: Acute (6) Anemia Assessment & Plan: H/H on admission: 11.1/34.6 Iron studies: * Iron 75 * TIBC : 207 * % Saturation: 34 * Ferritin: 454 Monitor H/H Status: Acute (7) History of hypothyroidism Assessment & Plan: Continue home medication: * Synthroid 88mcg PO daily * TSH normal Status: Acute (8) Edema of right ankle Assessment & Plan: Ankle X-ray: No fracture or arthritis. Mild circumferential soft tissue swelling bilaterally. Pending b/l Doppler official report Stopped fluids (01/03/17) Status: Acute (9) Prophylactic measure Assessment & Plan: SCD [place] Pepcid 20mg PO BID Florastor 250mg PO BID Status: Acute <Ian Gresham - Last Filed: 01/04/17 16:24> Objective - Vital Signs/Intake and Output Vital Signs (last 24 hours): Temp Pulse Resp BP Pulse Ox 98.5 F 79 20 119/70 98 01/04/17 07:00 01/04/17 07:00 01/04/17 07:00 01/04/17 07:00 01/04/17 07:00 Intake and Output: 01/04/17 01/04/17 06:59 18:59 Intake Total 340 200 Balance 340 200 - Medications Medications: Current Medications Clopidogrel Bisulfate (Plavix) 75 mg PO DAILY [facility] Last Admin: 01/04/17 09:43 Dose: 75 mg Famotidine (Pepcid) 20 mg PO BID [facility] Last Admin: 01/04/17 09:43 Dose: 20 mg Vancomycin/Sodium Chloride (Vancocin) 1 gm in 200 mls @ 133 mls/hr IVPB Q12H [facility] Stop: 01/07/17 22:01 Last Admin: 01/04/17 09:43 Dose: 133 mls/hr Isoniazid (Niazid) 300 mg PO DAILY [facility] Last Admin: 01/01/17 11:48 Dose: 300 mg Levothyroxine Sodium (Synthroid) 88 mcg PO DAILY@0630 [facility] Last Admin: 01/03/17 05:50 Dose: 88 mcg Ondansetron HCl (Zofran Inj) 4 mg IVP Q6H PRN PRN Reason: Nausea/Vomiting Saccharomyces Boulardii (Florastor) 250 mg PO BID [facility] Last Admin: 01/04/17 09:43 Dose: 250 mg - Labs Labs: 01/04/17 07:59 01/04/17 07:59 Attending/Attestation - Attestation I have personally seen and examined this patient.: Yes I have fully participated in the care of the patient.: Yes I have reviewed all pertinent clinical information, including history, physical exam and plan: Yes Notes (Text): 01/04/17 16:21 Hospitalist Progess Note (Patient was seen and examined at 4 PM 01/04/17 656 A) 51 Year Old Male (PMHx: Hypothyroidism, Chronic Ankle Edema, Pneumonia [ admitted here from 10/29/16 through 11/01/16], Anemia, and TB Prophylaxis) who was admitted for evaluation and treatment of intractable vertigo. He was also found to have (+) Blood Culture on 01/01/17 showing S. aureus and Coag Neg Strep. This is likely contamination as repeat Blood Culture 01/02/17 x 2. Patient no longer has Vertigo. He has also been cleared by ID Dr. Carias for discharge without any PO antibiotics. Upon FULL ROS The vertigo has imporved since the discontinuation of Minocycline and will only occur if he gets up too quickly from bed Edema of the bilateral ankles NO other complaints upon FULL ROS. Exam: HEENT: NCA, EOMI, PERRLA, NO lymphadenopathy, NO thyromegaly, NO pharyngeal erythema/exudate Cardio: NS1 and NS2, NO M/R/G, NO JVD, NO Hepatojugular Reflux Resp: CTA B/L GI: BSx4 are normal, NT, NO HSM, Soft, NO guarding rebound tenderness Ext: Pulses are strong and equal, Capillary Refill is 2 seconds, 1+ Pitting Edema from ankles to just mid tibia Neuro: CN II through XII are grossly intact Assessment and Plan: 1). Vestibular Disequilibrium Right Ear I believe that this is likely secondary to the Minocycline which has been discontinued upon his admission CT Head showed NO acute changes MRI Brain showed NO hemorrhages/mass Carotid Doppler showed NO significant stenosis Seen by Neurology Dr. Lee and started on Plavix 75 mg PO 1x/day I walked with patient on the floor again today and his gait was completely normal and no complaints of Vertigo while ambulating 2). TB Prophylaxis I spoke with Dr. Stoll (who was covering for PMD Dr. Bran Klein [phone] ) on 01/02/17 and he confirmed that patient was being treated with Isoniazid 300 mg PO 1x/day by Dr. Klein for TB Prophylaxis I spoke with Industrial Chemicals Supervisor Dr. Mckeon and he confirmed that patient was being treated prophylactically with Isoniazid Therefore respiratory isolation was discontinued on 01/02/17 3). Anemia secondary to ? Iron studies were unremarkable F/U with Hematology as an outpatient for further workup 4). Bacteremia As per Blood Culture 01/01/17 that showed S. aureus and Coag Neg Strep Vancomycin 1 gm IV Q12H Zosyn 3.[address] Chest showed no interval change when compared to 09/11/16: airspace opacities prominent bilateral lower lobes with associated bronchiectasis with slight increase in pleural effusion Chest X Ray showed progressive bibasilar consolidation, progressive infiltrates with underlying bibasilar bronchiectasis with inferolateral pleural effusion F/U Sputum Culture ID Dr. Carias help is greatly appreciated 5). Hx Hypothyroidism Levothyroxine 88 mcg PO 1x/day 6). Possible ALL Reaction On night of 01/01/17 patient apparently had redness of face and neck and upper chest and therefore Solumedrol, Pepcid, and Benadryl were given. The Solumedrol may have contributed to the elevated WBC on 01/02/17 and is currently decreasing. 7). Hx Ankle Edema Right Ankle X Ray was unremarkable Bilateral LE U/S which showed NOMAL Ankel Brachial Index The fluids were discontinued 01/03/17 8). Hypokalemia KCl 40 meQ x 1 dose 01/03/17 and this has resolved 9). Prophylactic Measures Pepcid 20 mg PO 2x/day Zofran 4 mg IV Q6H PRN
[2017-01-04] MEDS: Piperacill/Tazo 3.375gm in Dex 3.375 GM/50 ML BAG IVPB SCH ×2 (00:19→05:08)
[2017-01-04] MEDS: Levothyroxine 88 MCG TAB PO SCH (06:00)
[2017-01-04 08:06] LABS: BASO # 0.1 K/uL (0.0-0.2); BASO % 0.5 % (0.0-2.0); EOS # 0.8 K/uL (0.0-0.7); EOS % 3.7 % (0.0-4.0); LYMPH % 23.1 % (20.0-40.0); MEAN CELL VOLUME 82.3 fL (80.0-94.0); MEAN CORPUSCULAR HEMOGLOBIN 26.6 pg (27.0-31.0); MEAN CORPUSCULAR HGB CONC 32.3 g/dL (33.0-37.0); MEAN PLATELET VOLUME 7.7 fL (7.2-11.7); MONO # 0.4 K/uL (0.0-0.8); MONO % 1.8 % (0.0-10.0); RED CELL DISTRIBUTION WIDTH 19.7 % (11.5-14.5); WHITE BLOOD COUNT 21.6 K/uL (4.8-10.8)
[2017-01-04 08:18] LABS: CHLORIDE 99 mmol/L (98-107); SODIUM 137 mmol/L (132-148)
[2017-01-04 08:19] LABS: POTASSIUM 3.6 mmol/L (3.6-5.2)
[2017-01-04 08:21] LABS: ALB/GLOB RATIO 0.5 (1.0-2.1); ALKALINE PHOSPHATASE 70 U/L (38-126); AST/SGOT 64 U/L (17-59); BILIRUBIN,TOTAL 0.6 mg/dL (0.2-1.3); BLOOD UREA NITROGEN 14 mg/dL (9-20); CARBON DIOXIDE 29 mmol/L (22-30); GFR AFRICAN-AMERICAN > 60; GLUCOSE,RANDOM 77 mg/dL (75-110); PHOSPHOROUS 4.6 mg/dL (2.5-4.5); TOTAL PROTEIN 7.2 g/dL (6.3-8.3)
[2017-01-04 08:22] LABS: ALT/SGPT 63 U/L (21-72); CALCIUM 7.5 mg/dl (8.6-10.4); MAGNESIUM 1.8 mg/dL (1.6-2.3)
[2017-01-04] MEDS: Vancomycin 1 gm/NS 200 ml 1 GM/200 ML BAG IVPB SCH ×2 (09:43→23:00)
[2017-01-04] MEDS: Saccharomyces Boulardi 250 mg Cap PO SCH ×2 (09:43→18:02)
--- NOTE | 2017-01-04 12:11 | CARD ---
APPROVED REPORT EKG Measurement Heart [id number] <Conclusion> Normal sinus rhythm Normal ECG
--- NOTE | 2017-01-04 16:43 | CP.PCM.PCO ---
Physician Communication Note - Physician Communication Note Physician Communication Note: Please see above.
--- NOTE | 2017-01-04 16:48 | CP.PCM.PN ---
Subjective - Date & Time of Evaluation Date of Evaluation: 01/04/17 Time of Evaluation: 05:00 - Subjective Subjective: dictated Objective - Vital Signs/Intake and Output Vital Signs (last 24 hours): Temp Pulse Resp BP Pulse Ox 98.9 F 76 20 113/66 97 01/04/17 15:20 01/04/17 15:20 01/04/17 15:20 01/04/17 15:20 01/04/17 15:20 Intake and Output: 01/04/17 01/04/17 06:59 18:59 Intake Total 340 200 Balance 340 200 - Medications Medications: Current Medications Clopidogrel Bisulfate (Plavix) 75 mg PO DAILY [facility] Last Admin: 01/04/17 09:43 Dose: 75 mg Famotidine (Pepcid) 20 mg PO BID [facility] Last Admin: 01/04/17 09:43 Dose: 20 mg Vancomycin/Sodium Chloride (Vancocin) 1 gm in 200 mls @ 133 mls/hr IVPB Q12H [facility] Stop: 01/07/17 22:01 Last Admin: 01/04/17 09:43 Dose: 133 mls/hr Isoniazid (Niazid) 300 mg PO DAILY [facility] Last Admin: 01/01/17 11:48 Dose: 300 mg Levothyroxine Sodium (Synthroid) 88 mcg PO DAILY@0630 [facility] Last Admin: 01/03/17 05:50 Dose: 88 mcg Ondansetron HCl (Zofran Inj) 4 mg IVP Q6H PRN PRN Reason: Nausea/Vomiting Saccharomyces Boulardii (Florastor) 250 mg PO BID [facility] Last Admin: 01/04/17 09:43 Dose: 250 mg - Labs Labs: 01/04/17 07:59 01/04/17 07:59 Assessment and Plan (1) PPD+ (purified protein derivative positive) Status: Acute (2) History of hypothyroidism Status: Acute (3) Vertigo Status: Acute
[2017-01-04] MEDS: Meropenem 1 GM in Sodium Chloride 0.9% 100 ML IVPB SCH (22:07)
--- NOTE | 2017-01-05 04:00 | PN ---
DATE: 01/01/2017 SUBJECTIVE: The patient was seen today. He has been on IV antibiotics. He states he was doing better. He did have some cough and was bringing whitish phlegm and had some dizziness issues which I think he has vertigo. Denied any chest pain. No shortness of breath. No nausea. No vomiting. No diarrhea. Continues to have dizziness. He says he was on vancomycin and Zosyn. Zosyn has been just discontinued. He denied any diarrhea. Denies any other symptoms. We had done a CAT scan which has not changed from August. PHYSICAL EXAMINATION VITAL SIGNS: T-max is 98.9, pulse is 76, blood pressure 113/66 and respirations are 20. HEENT: Head is atraumatic. Pupils are reactive to light. Tongue is moist. NECK: Supple. LUNGS: Clear. No crackles or rales heard. HEART: S1 and S2 is regular. ABDOMEN: Soft, nontender. No guarding, no rigidity present. EXTREMITIES: No edema, clubbing or cyanosis. LABORATORY DATA: However, his white count has jumped to 21.6, hemoglobin 11, hematocrit 34 and platelet count is 442. He was also on doxycycline before he came here for coagulase negative staph which we thought he had *------*. He has coagulase negative staph and repeat cultures are negative. This was sensitive to Levaquin and vancomycin and he is on vancomycin. Blood cultures x2 are negative and he denied any diarrhea and he had x-ray done. Chest CT actually showed no significant interval change in the lungs since the previous exam, slight increase in the size of pleural effusion; otherwise, no significant interval increase in the size of the pleural effusion. Otherwise, no significant interval change. On the lungs, he has had associated bronchiectasis. It is also more prominent at the lower lung lobes and he has pleural effusions larger compared to the previous study. ASSESSMENT AND PLAN: At this time, I am going to change the Zosyn to meropenem and I will repeat another x-ray and will not discharge him; however, clinically he was looking fine, but it seems that his white count is increasing, and he still remains septic with bronchiectasis and effusion and has vertigo and he is being treated for PPD positive with INH and B6 as this effusion is big that needs to be aspirated if he continues to have increased white count. He has peripheral IV. We will follow. Kofi Carias MD
[2017-01-05] MEDS: Meropenem 1 GM in Sodium Chloride 0.9% 100 ML IVPB SCH ×3 (06:45→22:00)
[2017-01-05] MEDS: Levothyroxine 88 MCG TAB PO SCH (06:45)
[2017-01-05 07:53] LABS: CHLORIDE 98 mmol/L (98-107)
[2017-01-05 07:54] LABS: POTASSIUM 3.8 mmol/L (3.6-5.2); SODIUM 133 mmol/L (132-148)
[2017-01-05 07:56] LABS: ALB/GLOB RATIO 0.5 (1.0-2.1); ALKALINE PHOSPHATASE 68 U/L (38-126); AST/SGOT 71 U/L (17-59); BILIRUBIN,TOTAL 0.5 mg/dL (0.2-1.3); BLOOD UREA NITROGEN 14 mg/dL (9-20); CARBON DIOXIDE 28 mmol/L (22-30); GFR AFRICAN-AMERICAN > 60; GLUCOSE,RANDOM 80 mg/dL (75-110)
[2017-01-05 07:57] LABS: ALT/SGPT 67 U/L (21-72); CALCIUM 7.5 mg/dl (8.6-10.4); MAGNESIUM 1.8 mg/dL (1.6-2.3); PHOSPHOROUS 4.6 mg/dL (2.5-4.5)
[2017-01-05 07:59] LABS: BASO # 0.1 K/uL (0.0-0.2); BASO % 0.4 % (0.0-2.0); EOS % 5.1 % (0.0-4.0); HEMATOCRIT 32.4 % (35.0-51.0); LYMPH # 3.5 K/uL (1.0-4.3); LYMPH % 18.7 % (20.0-40.0); MEAN CELL VOLUME 82.7 fL (80.0-94.0); MEAN CORPUSCULAR HEMOGLOBIN 26.9 pg (27.0-31.0); MEAN CORPUSCULAR HGB CONC 32.6 g/dL (33.0-37.0); MEAN PLATELET VOLUME 7.9 fL (7.2-11.7); MONO # 0.4 K/uL (0.0-0.8); MONO % 2.4 % (0.0-10.0); RED CELL DISTRIBUTION WIDTH 19.6 % (11.5-14.5); WHITE BLOOD COUNT 18.6 K/uL (4.8-10.8)
[2017-01-05] MEDS: Saccharomyces Boulardi 250 mg Cap PO SCH ×2 (09:25→17:39)
[2017-01-05] MEDS: Vancomycin 1 gm/NS 200 ml 1 GM/200 ML BAG IVPB SCH ×2 (09:25→23:33)
--- NOTE | 2017-01-05 13:19 | VASCLAB ---
STUDY DESCRIPTION: HISTORY: calf pain PRIORS: None. TECHNIQUE: Pulse volume recording waveforms and segmental pressures of bilateral lower extremities at multiple levels were obtained. Ankle Brachial Indices (ABIs) were calculated. Report prepared by JOSE EDUARDO Pepper, RVT RIGHT LOWER EXTREMITY: * Brachial artery: Pressure - 125 mmHg. * High thigh: Pressure - 145 mmHg: Ratio - 1.16: PVR waveform - Pulsatile * Low thigh: Pressure - 139 mmHg: Ratio - 1.11 PVR waveform: Pulsatile * Calf: Pressure - 144 mmHg: Ratio - 1.15 PVR waveform: Pulsatile * Posterior tibial Artery: Pressure - 143 mmHg: Ratio - 1.14 PVR waveform: Pulsatile * Dorsalis pedis Artery: Pressure - 146 mmHg: Ratio - 1.17 PVR waveform: Pulsatile * Great toe: Pressure - mmHg: Ratio - PVR waveform: Ankle brachial index (JOSEPH): 1.17 LEFT LOWER EXTREMITY: * Brachial artery: Pressure - 116 mmHg. * High thigh: Pressure - 135 mmHg: Ratio - 1.08: PVR waveform - Pulsatile * Low thigh: Pressure - 143 mmHg: Ratio - 1.14 PVR waveform: Pulsatile * Calf: Pressure - 140 mmHg: Ratio - 1.12 PVR waveform: Pulsatile * Posterior tibial Artery: Pressure - 141 mmHg: Ratio - 1.13 PVR waveform: Pulsatile * Dorsalis pedis Artery: Pressure - 136 mmHg: Ratio - 1.09 PVR waveform: Pulsatile * Great toe: Pressure - mmHg: Ratio - PVR waveform: Ankle brachial index (JOSEPH): 1.13 OTHER FINDINGS: Right: Left: IMPRESSION: Right: There was no evidence of hemodynamically significant arterial insufficiency in the right lower extremity. Left: There was no evidence of hemodynamically significant arterial insufficiency in the left lower extremity.
--- NOTE | 2017-01-05 18:40 | CP.PCM.PN ---
Subjective - Date & Time of Evaluation Date of Evaluation: 01/05/17 Time of Evaluation: 08:00 - Subjective Subjective: PGY1- Medicine Note- Dr. Delarosa's Service Patient seen and examined at bedside and in no acute distress. Patient says he is no longer dizzy and is feeling okay. Patient says that he has been having diarrhea. Patient denies headache, chest pain, shortness of breath, or abdominal pain. Objective - Vital Signs/Intake and Output Vital Signs (last 24 hours): Temp Pulse Resp BP Pulse Ox 99.1 F 78 18 110/59 L 98 01/05/17 16:00 01/05/17 16:00 01/05/17 16:00 01/05/17 16:00 01/05/17 16:00 Intake and Output: 01/05/17 01/05/17 06:59 18:59 Intake Total 350 500 Balance 350 500 - Medications Medications: Current Medications Clopidogrel Bisulfate (Plavix) 75 mg PO DAILY [facility] Last Admin: 01/05/17 09:25 Dose: 75 mg Famotidine (Pepcid) 20 mg PO BID [facility] Last Admin: 01/05/17 17:39 Dose: 20 mg Vancomycin/Sodium Chloride (Vancocin) 1 gm in 200 mls @ 133 mls/hr IVPB Q12H [facility] Stop: 01/07/17 22:01 Last Admin: 01/05/17 09:25 Dose: 133 mls/hr Meropenem 1 gm/ Sodium (Chloride) 100 mls @ 100 mls/hr IVPB Q8 [facility] Last Admin: 01/05/17 14:38 Dose: 100 mls/hr Isoniazid (Niazid) 300 mg PO DAILY [facility] Last Admin: 01/01/17 11:48 Dose: 300 mg Levothyroxine Sodium (Synthroid) 88 mcg PO DAILY@0630 [facility] Last Admin: 01/05/17 06:45 Dose: 88 mcg Metronidazole (Flagyl) 500 mg PO Q8 [facility] Last Admin: 01/05/17 17:39 Dose: 500 mg Ondansetron HCl (Zofran Inj) 4 mg IVP Q6H PRN PRN Reason: Nausea/Vomiting Pyridoxine HCl (Vitamin B6) 25 mg PO DAILY [facility] Saccharomyces Boulardii (Florastor) 250 mg PO BID [facility] Last Admin: 01/05/17 17:39 Dose: 250 mg - Labs Labs: 01/05/17 07:19 01/05/17 07:19 - Constitutional Appears: Well, Non-toxic, No Acute Distress - Head Exam Head Exam: ATRAUMATIC, NORMAL INSPECTION, NORMOCEPHALIC - Eye Exam Eye Exam: EOMI, Normal appearance, PERRL - ENT Exam ENT Exam: Mucous Membranes Moist, Normal Exam - Neck Exam Neck Exam: Full ROM - Respiratory Exam Respiratory Exam: Clear to Ausculation Bilateral, NORMAL BREATHING PATTERN. absent: Rales, Rhonchi, Wheezes, Respiratory Distress, Stridor - Cardiovascular Exam Cardiovascular Exam: REGULAR RHYTHM, RRR. absent: Gallop, Rubs, Murmur - GI/Abdominal Exam GI & Abdominal Exam: Soft, Normal Bowel Sounds. absent: Distended, Firm, Guarding, Rigid - Extremities Exam Extremities Exam: Pedal Edema. absent: Calf Tenderness Additional comments: 1+ pedal edema - Back Exam Back Exam: NORMAL INSPECTION. absent: rash noted - Neurological Exam Neurological Exam: Alert, Awake, Oriented x3 - Psychiatric Exam Psychiatric exam: Normal Affect, Normal Mood - Skin Skin Exam: Intact, Normal Color, Warm Assessment and Plan - Assessment and Plan (Free Text) Assessment: (1) Vertigo Assessment & Plan: Vestibular Disequilibrium Right Ear Possibly secondary to drug-induced (Minocycline HCl - discontinued) * Zofran 4mg IV Q6H prn --> for associated nausea and vomiting Neurology consult ( Dr. Spears)---> Help appreciated As per neurology: * Hydration * Meclizine PRN * Plavix * Out of bed * No further work up needed 01/02: HIV antibody 1 and 2 screen ordered: Negative RPR: Negative Imaging: ECHO: mild pulmonary hypertension. normal left ventricle, normal EF. CT head: No acute findings Brain MRI: No acute intracranial hemorrhage. Minimal of prolonged T2 signal changes seen in the periventricular white matter which may in part be related to CSF interface artifact however the possibility of some minimal concomitant chronic sequela of small vessel disease not excluded. Mild generalized volume loss. No enhancing masses. No evidence of unusual meningeal enhancement. Carotid doppler : Duplex scan does not suggest hemodynamically significant stenosis of the right and left extracranial carotid arteries Chest X-ray: Progressive bibasilar consolidations. Progressive infiltrates in this patient with underlying bibasilar bronchiectasis here is inferred. Inferolateral pleural effusions with pleural thickening -renoted Status: Acute (2) Latent Tuberculosis Assessment & Plan: Pending quantiferon test result - indeterminate Isonazid 300mg PO Daily started B6 25 mg PO daily (01/05) F/u with patient's PMD regarding TB diagnosis: * As per conversation with Dr. Pete Gresham and Dr. Stoll (who was covering for PMD Dr. Bran Klein [phone]) on 01/02/17 and he confirmed that patient was being treated with Isoniazid 300 mg PO 1x/day by Dr. Klein for TB Prophylaxis [employer] Engineer Dr. Mckeon----> Help appreciated * Confirmed that patient was being treated prophylactically with Isoniazid * Therefore respiratory isolation was discontinued on 01/02/17 Imaging: CT chest: No significant interval change in the lungs since the previous exam. Interval slight increase in the size of the pleural effusion. Otherwise no significant interval change Chest X-ray: Progressive bibasilar consolidations. Progressive infiltrates in this patient with underlying bibasilar bronchiectasis here is inferred. Inferolateral pleural effusions with pleural thickening -renoted Status: Acute (3) Bacteremia Assessment & Plan: ID Consult ( Dr. Carias on board)---> Help appreciated Blood culture/ gram stain : (+) for gram positive cocci/ Coagulase negative staphylococcus Vancomycin 1gm IVPB Q12H (Day 3) Zosyn 3.375gm IVPB Q6H (DAY 2) Status: Acute (4) Leukocytosis Assessment & Plan: Trending down, 18.6 on 01/05 Possibly secondary to solu-medrol use on admission On admission:9.8 01/02/17: 21.6 Status: Acute (5) Fever Assessment & Plan: 01/04: 100.8 at 23:50 ID consult (Dr. Carias)---> Help appreciated Tmax: 100.6 (01/01/17) Blood culture/ gram stain : (+) for gram positive cocci/ Coagulase negative staphylococcus Vancomycin 1gm IVPB Q12H Zosyn 3.375gm IVPB Q6H changed to Meropenem 1 gm on 01/04 Status: Acute (6) Diarrhea Assessment & Plan: R/O C. Dif- C dif toxin, stool culture, ova and parasite Flagyl 500 mg PO q8h Status: Acute (7) Anemia Assessment & Plan: H/H 01/05: 10.5/32.4 H/H on admission: 11.1/34.6 Iron studies: * Iron 75 * TIBC : 207 * % Saturation: 34 * Ferritin: 454 Monitor H/H Status: Acute (8) History of hypothyroidism Assessment & Plan: Continue home medication: * Synthroid 88mcg PO daily * TSH normal Status: Acute (9) Edema of right ankle Assessment & Plan: Ankle X-ray: No fracture or arthritis. Mild circumferential soft tissue swelling bilaterally. Pending b/l Doppler official report Stopped fluids (01/03/17) Status: resolved (10) Prophylactic measure Assessment & Plan: SCDs Ambulating Pepcid 20mg PO BID Florastor 250mg PO BID Status: Acute
[2017-01-06] MEDS: Meropenem 1 GM in Sodium Chloride 0.9% 100 ML IVPB SCH ×3 (06:02→21:26)
[2017-01-06] MEDS: Levothyroxine 88 MCG TAB PO SCH (07:16)
[2017-01-06 07:19] LABS: BASO % 0.2 % (0.0-2.0); EOS # 0.9 K/uL (0.0-0.7); EOS % 4.9 % (0.0-4.0); LYMPH # 3.1 K/uL (1.0-4.3); LYMPH % 16.3 % (20.0-40.0); MEAN CELL VOLUME 82.4 fL (80.0-94.0); MEAN CORPUSCULAR HEMOGLOBIN 27.1 pg (27.0-31.0); MEAN CORPUSCULAR HGB CONC 32.9 g/dL (33.0-37.0); MEAN PLATELET VOLUME 7.9 fL (7.2-11.7); MONO # 0.4 K/uL (0.0-0.8); MONO % 2.2 % (0.0-10.0); RED CELL DISTRIBUTION WIDTH 20.7 % (11.5-14.5); WHITE BLOOD COUNT 18.9 K/uL (4.8-10.8)
[2017-01-06 07:23] LABS: CHLORIDE 99 mmol/L (98-107); SODIUM 134 mmol/L (132-148)
[2017-01-06 07:25] LABS: GFR AFRICAN-AMERICAN > 60
[2017-01-06 07:26] LABS: ALB/GLOB RATIO 0.5 (1.0-2.1); ALKALINE PHOSPHATASE 80 U/L (38-126); ALT/SGPT 66 U/L (21-72); AST/SGOT 63 U/L (17-59); BILIRUBIN,TOTAL 0.6 mg/dL (0.2-1.3); BLOOD UREA NITROGEN 18 mg/dL (9-20); CALCIUM 7.7 mg/dl (8.6-10.4); CARBON DIOXIDE 26 mmol/L (22-30); GLUCOSE,RANDOM 82 mg/dL (75-110); PHOSPHOROUS 4.2 mg/dL (2.5-4.5); TOTAL PROTEIN 7.2 g/dL (6.3-8.3)
[2017-01-06 07:27] LABS: MAGNESIUM 1.9 mg/dL (1.6-2.3)
[2017-01-06] MEDS: Vancomycin 1 gm/NS 200 ml 1 GM/200 ML BAG IVPB SCH ×2 (09:56→21:23)
[2017-01-06] MEDS: Saccharomyces Boulardi 250 mg Cap PO SCH ×2 (11:27→18:37)
--- NOTE | 2017-01-06 14:56 | CP.PCM.PN ---
Subjective - Date & Time of Evaluation Date of Evaluation: 01/06/17 Time of Evaluation: 08:00 - Subjective Subjective: PGY1- Medicine Note- Dr. Delarosa's Service Patient seen and examined at bedside and in no acute distress. Patient says he has a headache that he rates a 3/10 and contributes to not being able to sleep last night. Patient has a mild cough which he says sometimes produces a small amount of white phlegm. Patient is eating well. Patient denies shortness of breath, chest pain, abdominal pain, nausea, vomiting, constipation, diarrhea. Objective - Vital Signs/Intake and Output Vital Signs (last 24 hours): Temp Pulse Resp BP Pulse Ox 97.5 F L 74 20 106/60 98 01/06/17 07:00 01/06/17 08:00 01/06/17 07:00 01/06/17 07:00 01/06/17 07:00 Intake and Output: 01/06/17 01/06/17 06:59 18:59 Intake Total 930 Balance 930 - Medications Medications: Current Medications Clopidogrel Bisulfate (Plavix) 75 mg PO DAILY [facility] Last Admin: 01/06/17 09:56 Dose: 75 mg Famotidine (Pepcid) 20 mg PO BID [facility] Last Admin: 01/06/17 11:27 Dose: 20 mg Furosemide (Lasix) 20 mg PO STAT [facility] Stop: 01/06/17 14:52 Vancomycin/Sodium Chloride (Vancocin) 1 gm in 200 mls @ 133 mls/hr IVPB Q12H [facility] Stop: 01/07/17 22:01 Last Admin: 01/06/17 09:56 Dose: 133 mls/hr Meropenem 1 gm/ Sodium (Chloride) 100 mls @ 100 mls/hr IVPB Q8 [facility] Last Admin: 01/06/17 13:58 Dose: 100 mls/hr Isoniazid (Niazid) 300 mg PO DAILY [facility] Last Admin: 01/01/17 11:48 Dose: 300 mg Levothyroxine Sodium (Synthroid) 88 mcg PO DAILY@0630 [facility] Last Admin: 01/06/17 07:16 Dose: 88 mcg Metronidazole (Flagyl) 500 mg PO Q8 [facility] Last Admin: 01/06/17 14:12 Dose: 500 mg Ondansetron HCl (Zofran Inj) 4 mg IVP Q6H PRN PRN Reason: Nausea/Vomiting Pyridoxine HCl (Vitamin B6) 25 mg PO DAILY [facility] Last Admin: 01/06/17 09:56 Dose: 25 mg Saccharomyces Boulardii (Florastor) 250 mg PO BID [facility] Last Admin: 01/06/17 11:27 Dose: 250 mg - Labs Labs: 01/06/17 06:54 01/06/17 06:54 - Constitutional Appears: Well - Head Exam Head Exam: ATRAUMATIC, NORMAL INSPECTION, NORMOCEPHALIC - Eye Exam Eye Exam: EOMI, Normal appearance, PERRL - ENT Exam ENT Exam: Mucous Membranes Moist, Normal Exam - Neck Exam Neck Exam: Full ROM, Normal Inspection. absent: Lymphadenopathy - Respiratory Exam Respiratory Exam: Clear to Ausculation Bilateral, NORMAL BREATHING PATTERN. absent: Rales, Rhonchi, Wheezes, Respiratory Distress, Stridor - Cardiovascular Exam Cardiovascular Exam: REGULAR RHYTHM, RRR, +S1, +S2. absent: Gallop, Rubs, Murmur - GI/Abdominal Exam GI & Abdominal Exam: Soft, Normal Bowel Sounds. absent: Firm, Guarding, Rigid, Tenderness - Extremities Exam Extremities Exam: Full ROM, Normal Capillary Refill, Normal Inspection, Pedal Edema. absent: Joint Swelling - Back Exam Back Exam: NORMAL INSPECTION. absent: rash noted - Neurological Exam Neurological Exam: Alert, Awake, Oriented x3 - Psychiatric Exam Psychiatric exam: Normal Affect, Normal Mood - Skin Skin Exam: Intact, Normal Color, Warm Assessment and Plan - Assessment and Plan (Free Text) Assessment: (1) Leukocytosis Assessment & Plan: unknown source, fever of 100.8 on 01/04 wbc: 18.9 on 01/06 f/u cxray as per Dr. Carias, patient put on isolation parameters AFB 01/03: negative f/u AFB culture Status: Acute (2) Latent Tuberculosis Assessment & Plan: Pending quantiferon test result - indeterminate Isonazid 300mg PO Daily started B6 25 mg PO daily (01/05) F/u with patient's PMD regarding TB diagnosis: * As per conversation with Dr. Pete Gresham and Dr. Stoll (who was covering for PMD Dr. Bran Klein [phone]) on 01/02/17 and he confirmed that patient was being treated with Isoniazid 300 mg PO 1x/day by Dr. Klein for TB Prophylaxis Ged Instructor Dr. Mckeon----> Help appreciated * Confirmed that patient was being treated prophylactically with Isoniazid * Therefore respiratory isolation was discontinued on 01/02/17 Imaging: CT chest: No significant interval change in the lungs since the previous exam. Interval slight increase in the size of the pleural effusion. Otherwise no significant interval change Chest X-ray: Progressive bibasilar consolidations. Progressive infiltrates in this patient with underlying bibasilar bronchiectasis here is inferred. Inferolateral pleural effusions with pleural thickening -renoted Status: Acute (3) Fever Assessment & Plan: 01/04: 100.8 at 23:50 ID consult (Dr. Carias)---> Help appreciated Tmax: 100.6 (01/01/17) Blood culture/ gram stain : (+) for gram positive cocci/ Coagulase negative staphylococcus Vancomycin 1gm IVPB Q12H Zosyn 3.375gm IVPB Q6H changed to Meropenem 1 gm on 01/04 Status: Acute (4) Bacteremia Assessment & Plan: ID Consult (Dr. Carias on board)---> Help appreciated Blood culture repeat on 01/02 negative for 72 hours, Urine Culture 01/01 negative Blood culture/ gram stain : (+) for gram positive cocci/ Coagulase negative staphylococcus Vancomycin 1gm IVPB Q12H Zosyn 3.375gm IVPB Q6H stopped on 01/03 Status: Acute (5) Lower Extremity Edema Assessment & Plan: Echo:mild pulmonary hypertension. normal left ventricle, normal EF. Lasix 20 mg once given 01/06 Status: Acute (6) Vertigo Assessment & Plan: Vestibular Disequilibrium Right Ear Possibly secondary to drug-induced (Minocycline HCl - discontinued) * Zofran 4mg IV Q6H prn --> for associated nausea and vomiting Neurology consult ( Dr. Spears)---> Help appreciated As per neurology: * Hydration * Meclizine PRN * Plavix * Out of bed * No further work up needed 01/02: HIV antibody 1 and 2 screen ordered: Negative RPR: Negative Imaging: ECHO: mild pulmonary hypertension. normal left ventricle, normal EF. CT head: No acute findings Brain MRI: No acute intracranial hemorrhage. Minimal of prolonged T2 signal changes seen in the periventricular white matter which may in part be related to CSF interface artifact however the possibility of some minimal concomitant chronic sequela of small vessel disease not excluded. Mild generalized volume loss. No enhancing masses. No evidence of unusual meningeal enhancement. Carotid doppler : Duplex scan does not suggest hemodynamically significant stenosis of the right and left extracranial carotid arteries Chest X-ray: Progressive bibasilar consolidations. Progressive infiltrates in this patient with underlying bibasilar bronchiectasis here is inferred. Inferolateral pleural effusions with pleural thickening -renoted Status: Resolved (7) Diarrhea Assessment & Plan: R/O C. Dif- C dif toxin, stool culture, ova and parasite Flagyl 500 mg PO q8h Status: Resolved (8) Anemia Assessment & Plan: H/H 01/06: 10.9/33 H/H on admission: 11.1/34.6 Iron studies: * Iron 75 * TIBC : 207 * % Saturation: 34 * Ferritin: 454 Monitor H/H Status: Acute (9) History of hypothyroidism Assessment & Plan: Continue home medication: * Synthroid 88mcg PO daily * TSH normal Status: Acute (10) Edema of right ankle Assessment & Plan: Ankle X-ray: No fracture or arthritis. Mild circumferential soft tissue swelling bilaterally. Pending b/l Doppler official report Stopped fluids (01/03/17) Status: resolved (11) Prophylactic measure Assessment & Plan: SCDs Ambulating Pepcid 20mg PO BID Florastor 250mg PO BID Status: Acute
--- NOTE | 2017-01-06 16:34 | RAD ---
HISTORY: cough, leukocytosis COMPARISON: Chest x-ray performed 01/01/17, CT chest without IV contrast performed 01/03/17 TECHNIQUE: Chest, one view. FINDINGS: Examination limited by habitus and hypoinflation. LUNGS: Bronchovascular crowding and bibasilar atelectasis or infiltrates. Please note that chest x-ray has limited sensitivity for the detection of pulmonary masses. PLEURA: Probable trace bilateral pleural effusions. No definite pneumothorax. CARDIOVASCULAR: Heart size appears within normal limits. OSSEOUS STRUCTURES: Degenerative changes. VISUALIZED UPPER ABDOMEN: Unremarkable. OTHER FINDINGS: None. IMPRESSION: Hypoinflation. Bronchovascular crowding and bibasilar atelectasis or infiltrates. Probable trace bilateral pleural effusions.
--- NOTE | 2017-01-06 21:46 | CP.PCM.PN ---
Subjective - Date & Time of Evaluation Date of Evaluation: 01/06/17 Time of Evaluation: 02:30 - Subjective Subjective: Patient seen complains of mild cough sometimes some phlegm.no diarrhea,no urine complaints,no phlebitis he knows he has brochiectasis Objective - Vital Signs/Intake and Output Vital Signs (last 24 hours): Temp Pulse Resp BP Pulse Ox 99.8 F H 84 20 110/68 98 01/06/17 15:00 01/06/17 15:00 01/06/17 15:00 01/06/17 18:37 01/06/17 15:00 Intake and Output: 01/06/17 01/07/17 18:59 06:59 Intake Total 930 Balance 930 - Medications Medications: Current Medications Clopidogrel Bisulfate (Plavix) 75 mg PO DAILY [facility] Last Admin: 01/06/17 09:56 Dose: 75 mg Famotidine (Pepcid) 20 mg PO BID [facility] Last Admin: 01/06/17 18:39 Dose: 20 mg Vancomycin/Sodium Chloride (Vancocin) 1 gm in 200 mls @ 133 mls/hr IVPB Q12H [facility] Stop: 01/07/17 22:01 Last Admin: 01/06/17 21:23 Dose: 133 mls/hr Meropenem 1 gm/ Sodium (Chloride) 100 mls @ 100 mls/hr IVPB Q8 [facility] Last Admin: 01/06/17 21:26 Dose: 100 mls/hr Isoniazid (Niazid) 300 mg PO DAILY [facility] Last Admin: 01/01/17 11:48 Dose: 300 mg Levothyroxine Sodium (Synthroid) 88 mcg PO DAILY@0630 [facility] Last Admin: 01/06/17 07:16 Dose: 88 mcg Metronidazole (Flagyl) 500 mg PO Q8 [facility] Last Admin: 01/06/17 21:27 Dose: 500 mg Ondansetron HCl (Zofran Inj) 4 mg IVP Q6H PRN PRN Reason: Nausea/Vomiting Pyridoxine HCl (Vitamin B6) 25 mg PO DAILY [facility] Last Admin: 01/06/17 09:56 Dose: 25 mg Saccharomyces Boulardii (Florastor) 250 mg PO BID [facility] Last Admin: 01/06/17 18:37 Dose: 250 mg - Labs Labs: 01/06/17 06:54 07/18/17 06:54 - Constitutional Appears: No Acute Distress - Head Exam Head Exam: NORMAL INSPECTION, NORMOCEPHALIC - Eye Exam Eye Exam: Normal appearance Pupil Exam: NORMAL ACCOMODATION - ENT Exam ENT Exam: Normal Exam - Neck Exam Neck Exam: Normal Inspection - Respiratory Exam Respiratory Exam: Clear to Ausculation Bilateral, NORMAL BREATHING PATTERN - Cardiovascular Exam Cardiovascular Exam: REGULAR RHYTHM, RRR - GI/Abdominal Exam GI & Abdominal Exam: Soft, Normal Bowel Sounds - Extremities Exam Additional comments: bilateral ankle edema Assessment and Plan (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 - Assessment and Plan (Free Text) Assessment: Patient still has high wbc count and still coughing will place him in isolation and check AFB again.
[2017-01-07] MEDS: Levothyroxine 88 MCG TAB PO SCH (05:52)
[2017-01-07] MEDS: Meropenem 1 GM in Sodium Chloride 0.9% 100 ML IVPB SCH ×3 (05:53→21:56)
[2017-01-07 07:15] LABS: BASO # 0.1 K/uL (0.0-0.2); BASO % 0.3 % (0.0-2.0); EOS # 0.7 K/uL (0.0-0.7); HEMATOCRIT 32.2 % (35.0-51.0); LYMPH # 2.9 K/uL (1.0-4.3); LYMPH % 15.9 % (20.0-40.0); MEAN CELL VOLUME 82.7 fL (80.0-94.0); MEAN CORPUSCULAR HEMOGLOBIN 27.1 pg (27.0-31.0); MEAN CORPUSCULAR HGB CONC 32.7 g/dL (33.0-37.0); MEAN PLATELET VOLUME 7.9 fL (7.2-11.7); MONO # 0.4 K/uL (0.0-0.8); MONO % 2.4 % (0.0-10.0); NRBC % 0.1 % (0.0-2.0); RED CELL DISTRIBUTION WIDTH 20.6 % (11.5-14.5); WHITE BLOOD COUNT 18.4 K/uL (4.8-10.8)
[2017-01-07 07:16] LABS: CHLORIDE 98 mmol/L (98-107); POTASSIUM 3.9 mmol/L (3.6-5.2); SODIUM 130 mmol/L (132-148)
[2017-01-07 07:18] LABS: ALB/GLOB RATIO 0.5 (1.0-2.1); ALKALINE PHOSPHATASE 77 U/L (38-126); ALT/SGPT 61 U/L (21-72); AST/SGOT 62 U/L (17-59); BILIRUBIN,TOTAL 0.6 mg/dL (0.2-1.3); BLOOD UREA NITROGEN 17 mg/dL (9-20); CARBON DIOXIDE 26 mmol/L (22-30); GFR AFRICAN-AMERICAN > 60; TOTAL PROTEIN 7.4 g/dL (6.3-8.3)
[2017-01-07 07:19] LABS: CALCIUM 7.2 mg/dl (8.6-10.4); GLUCOSE,RANDOM 82 mg/dL (75-110); MAGNESIUM 1.7 mg/dL (1.6-2.3); PHOSPHOROUS 3.9 mg/dL (2.5-4.5)
[2017-01-07] MEDS: Saccharomyces Boulardi 250 mg Cap PO SCH ×2 (09:08→17:52)
[2017-01-07] MEDS: Vancomycin 1 gm/NS 200 ml 1 GM/200 ML BAG IVPB SCH ×2 (09:08→21:57)
[2017-01-07 11:09] LABS: VITAMIN B6 6.8 ng/mL (2.1-21.7)
--- NOTE | 2017-01-07 18:01 | CP.PCM.PN ---
<Kadi Garzon - Last Filed: 01/07/17 17:57> Subjective - Date & Time of Evaluation Date of Evaluation: 01/07/17 Time of Evaluation: 07:00 - Subjective Subjective: PGY1- Medicine Note- Dr. Mccartney's Service Patient seen and examined at bedside and in no acute distress. Patient says he is feeling the same as yesterday. Patient says he has some coughing with minimal sputum. Patient said he had some sweats overnight. Patient denies headache, shortness of breath, chest pain, palpitations, abdominal pain, nausea , vomiting, constipation, diarrhea. Objective - Vital Signs/Intake and Output Vital Signs (last 24 hours): Temp Pulse Resp BP Pulse Ox 98.6 F 67 18 111/54 L 96 01/07/17 15:00 01/07/17 16:00 01/07/17 15:00 01/07/17 15:00 01/07/17 15:00 Intake and Output: 01/07/17 01/07/17 06:59 18:59 Intake Total 650 Balance 650 - Medications Medications: Current Medications Clopidogrel Bisulfate (Plavix) 75 mg PO DAILY [facility] Last Admin: 01/07/17 09:08 Dose: 75 mg Famotidine (Pepcid) 20 mg PO BID [facility] Last Admin: 01/07/17 17:52 Dose: 20 mg Vancomycin/Sodium Chloride (Vancocin) 1 gm in 200 mls @ 133 mls/hr IVPB Q12H [facility] Stop: 01/07/17 22:01 Last Admin: 01/07/17 09:08 Dose: 133 mls/hr Meropenem 1 gm/ Sodium (Chloride) 100 mls @ 100 mls/hr IVPB Q8 [facility] Last Admin: 01/07/17 13:20 Dose: 100 mls/hr Isoniazid (Niazid) 300 mg PO DAILY [facility] Last Admin: 01/01/17 11:48 Dose: 300 mg Levothyroxine Sodium (Synthroid) 88 mcg PO DAILY@0630 [facility] Last Admin: 01/07/17 05:52 Dose: 88 mcg Metronidazole (Flagyl) 500 mg PO Q8 [facility] Last Admin: 01/07/17 13:20 Dose: 500 mg Ondansetron HCl (Zofran Inj) 4 mg IVP Q6H PRN PRN Reason: Nausea/Vomiting Pyridoxine HCl (Vitamin B6) 25 mg PO DAILY [facility] Last Admin: 01/07/17 09:09 Dose: 25 mg Saccharomyces Boulardii (Florastor) 250 mg PO BID [facility] Last Admin: 01/07/17 17:52 Dose: 250 mg - Labs Labs: 01/07/17 06:43 01/07/17 06:43 - Constitutional Appears: Well, Non-toxic, No Acute Distress - Head Exam Head Exam: ATRAUMATIC, NORMAL INSPECTION, NORMOCEPHALIC - Eye Exam Eye Exam: EOMI, Normal appearance, PERRL - ENT Exam ENT Exam: Mucous Membranes Moist, Normal Exam - Neck Exam Neck Exam: Full ROM, Normal Inspection. absent: Lymphadenopathy - Respiratory Exam Respiratory Exam: Clear to Ausculation Bilateral, NORMAL BREATHING PATTERN. absent: Rales, Rhonchi, Wheezes, Respiratory Distress, Stridor - Cardiovascular Exam Cardiovascular Exam: REGULAR RHYTHM, RRR. absent: Gallop, Rubs, Murmur - GI/Abdominal Exam GI & Abdominal Exam: Soft, Normal Bowel Sounds. absent: Distended, Firm, Guarding, Rigid, Tenderness - Extremities Exam Extremities Exam: Full ROM, Normal Inspection, Pedal Edema Additional comments: decreased lower extremity edema bilaterally - Back Exam Back Exam: NORMAL INSPECTION. absent: rash noted - Neurological Exam Neurological Exam: Alert, Awake, Oriented x3 - Psychiatric Exam Psychiatric exam: Normal Affect, Normal Mood - Skin Skin Exam: Intact, Normal Color, Warm Assessment and Plan - Assessment and Plan (Free Text) Assessment: (1) Leukocytosis Assessment & Plan: unknown source, fever of 100.8 on 01/04 wbc: 18.9 on 01/06 01/06: cxray:hypoinflation, bronchovascular crowing, bibasilar atelectasis or infiltrates, probable trace bilateral pleural effusions as per Dr. Carias, patient put on isolation parameters AFB 01/03: negative f/u AFB culture f/u ESR, CRP, LDH, Legionella, Strep Pneumo, Mycoplasma, procalcitonin f/u dopplers of lower and upper extremities HIV negative Status: Acute (2) Latent Tuberculosis Assessment & Plan: Pending quantiferon test result - indeterminate Isonazid 300mg PO Daily started B6 25 mg PO daily (01/05) F/u with patient's PMD regarding TB diagnosis: * As per conversation with Dr. Pete Gresham and Dr. Stoll (who was covering for PMD Dr. Bran Klein [phone]) on 01/02/17 and he confirmed that patient was being treated with Isoniazid 300 mg PO 1x/day by Dr. Klein for TB Prophylaxis Sharepoint Web Developer Dr. Mckeon----> Help appreciated * Confirmed that patient was being treated prophylactically with Isoniazid * Therefore respiratory isolation was discontinued on 01/02/17 Imaging: CT chest: No significant interval change in the lungs since the previous exam. Interval slight increase in the size of the pleural effusion. Otherwise no significant interval change 01/01 Chest X-ray: Progressive bibasilar consolidations. Progressive infiltrates in this patient with underlying bibasilar bronchiectasis here is inferred. Inferolateral pleural effusions with pleural thickening -renoted Status: Acute (3) Fever Assessment & Plan: 01/04: 100.8 at 23:50 ID consult (Dr. Carias)---> Help appreciated Tmax: 100.6 (01/01/17) Blood culture/ gram stain : (+) for gram positive cocci/ Coagulase negative staphylococcus Vancomycin 1gm IVPB Q12H Zosyn 3.375gm IVPB Q6H changed to Meropenem 1 gm on 01/04 Status: Acute (4) Bacteremia Assessment & Plan: ID Consult (Dr. Carias on board)---> Help appreciated Blood culture repeat on 01/02 negative for 72 hours, Urine Culture 01/01 negative Blood culture/ gram stain : (+) for gram positive cocci/ Coagulase negative staphylococcus Vancomycin 1gm IVPB Q12H Zosyn 3.375gm IVPB Q6H stopped on 01/03 Status: Acute (5) Lower Extremity Edema Assessment & Plan: Echo:mild pulmonary hypertension. normal left ventricle, normal EF. Lasix 20 mg once given 01/06 Status: Acute (6) Vertigo Assessment & Plan: Vestibular Disequilibrium Right Ear Possibly secondary to drug-induced (Minocycline HCl - discontinued) * Zofran 4mg IV Q6H prn --> for associated nausea and vomiting Neurology consult ( Dr. Spears)---> Help appreciated As per neurology: * Hydration * Meclizine PRN * Plavix * Out of bed * No further work up needed 01/02: HIV antibody 1 and 2 screen ordered: Negative RPR: Negative Imaging: ECHO: mild pulmonary hypertension. normal left ventricle, normal EF. CT head: No acute findings Brain MRI: No acute intracranial hemorrhage. Minimal of prolonged T2 signal changes seen in the periventricular white matter which may in part be related to CSF interface artifact however the possibility of some minimal concomitant chronic sequela of small vessel disease not excluded. Mild generalized volume loss. No enhancing masses. No evidence of unusual meningeal enhancement. Carotid doppler : Duplex scan does not suggest hemodynamically significant stenosis of the right and left extracranial carotid arteries Chest X-ray: Progressive bibasilar consolidations. Progressive infiltrates in this patient with underlying bibasilar bronchiectasis here is inferred. Inferolateral pleural effusions with pleural thickening -renoted Status: Resolved (7) Diarrhea Assessment & Plan: R/O C. Dif- C dif toxin, stool culture, ova and parasite Flagyl 500 mg PO q8h Status: Resolved (8) Anemia Assessment & Plan: H/H 01/06: 10.9/33 H/H on admission: 11.1/34.6 Iron studies: * Iron 75 * TIBC : 207 * % Saturation: 34 * Ferritin: 454 Monitor H/H Status: Acute (9) History of hypothyroidism Assessment & Plan: Continue home medication: * Synthroid 88mcg PO daily * TSH normal Status: Acute (10) Edema of right ankle Assessment & Plan: Ankle X-ray: No fracture or arthritis. Mild circumferential soft tissue swelling bilaterally. Pending b/l Doppler official report Stopped fluids (01/03/17) Status: resolved (11) Prophylactic measure Assessment & Plan: SCDs Ambulating Pepcid 20mg PO BID Florastor 250mg PO BID Status: Acute <Tanika Mccartney V - Last Filed: 01/08/17 07:28> Objective - Vital Signs/Intake and Output Vital Signs (last 24 hours): Temp Pulse Resp BP Pulse Ox 98.6 F 67 18 111/54 L 96 01/07/17 15:00 01/07/17 16:00 01/07/17 15:00 01/07/17 15:00 01/07/17 15:00 Intake and Output: 01/07/17 01/08/17 18:59 06:59 Intake Total 650 Balance 650 - Medications Medications: Current Medications Clopidogrel Bisulfate (Plavix) 75 mg PO DAILY [facility] Last Admin: 01/07/17 09:08 Dose: 75 mg Famotidine (Pepcid) 20 mg PO BID [facility] Last Admin: 01/07/17 17:52 Dose: 20 mg Meropenem 1 gm/ Sodium (Chloride) 100 mls @ 100 mls/hr IVPB Q8 [facility] Last Admin: 01/07/17 21:56 Dose: 100 mls/hr Isoniazid (Niazid) 300 mg PO DAILY [facility] Last Admin: 01/01/17 11:48 Dose: 300 mg Levothyroxine Sodium (Synthroid) 88 mcg PO DAILY@0630 [facility] Last Admin: 01/07/17 05:52 Dose: 88 mcg Metronidazole (Flagyl) 500 mg PO Q8 [facility] Last Admin: 01/07/17 13:20 Dose: 500 mg Ondansetron HCl (Zofran Inj) 4 mg IVP Q6H PRN PRN Reason: Nausea/Vomiting Pyridoxine HCl (Vitamin B6) 25 mg PO DAILY [facility] Last Admin: 01/07/17 09:09 Dose: 25 mg Saccharomyces Boulardii (Florastor) 250 mg PO BID [facility] Last Admin: 01/07/17 17:52 Dose: 250 mg - Labs Labs: 01/07/17 06:43 01/07/17 06:43 Attending/Attestation - Attestation I have personally seen and examined this patient.: Yes I have fully participated in the care of the patient.: Yes I have reviewed all pertinent clinical information, including history, physical exam and plan: Yes Notes (Text): Patient seen, examined, and case discussed with day-time resident. Patient seen reporting cough, no hemotypsis, no muscle aches/no pains. Patient reports good appetite. Patient's swelling around the ankle has improved per observation of resident on the case. Patient ordered for ESR, CRP, and LDH-->all elevated. Procalcitonin is low. Ordered for dopplers r/o DVT given persistent white count. Assessment/Plan 1) Leukocytosis * Persistent white count * Ordered for ESR, CRP, LDH-->all elevated (79, >15.00, 750); procalcitonin low * Ordered for venous dopplers (upper and lower) r/o DVT * Negative C. dif; No ova and parasite * Meropenem 1 gram IV Q 8hours (active since 01/04/17) * Flagyl 500mg PO Q 8 hours (active since 01/05/17) * Florastor 250mg PO bid * As per Blood Culture 01/01/17 (1/2) that showed S. aureus and Coag Neg Strep: sensitive to levofloxcin and Vancomycin * Blood cultures (01/02/17): no growth after 5 days X2 2). Vestibular Disequilibrium Right Ear * Neurology (Dr. Lee) o board-->help appreciated-->started on Plavix 75mg Po daily * Possible secondary to drug side effect * CT Head showed NO acute changes * MRI Brain showed NO hemorrhages/mass * Carotid Doppler showed NO significant stenosis 3). TB Prophylaxis * My colleague spoke with Dr. Stoll (who was covering for PMD Dr. Bran Klein [phone]) on 01/02/17 and he confirmed that patient was being treated with Isoniazid 300 mg PO 1x/day by Dr. Klein for TB Prophylaxis * My colleague spoke with Sharepoint Web Developer Dr. Mckeon and he confirmed that patient was being treated prophylactically with Isoniazid * Dr. Carias (infectious disease) on board-->persistent white count, placed back on isolation, collection of AFB * Negative Legionella * Mycobacterial Culture (01/03/17): no AFB seen 4). Anemia secondary to ? * Iron studies were unremarkable * F/U with Hematology as an outpatient for further workup 5). Bacteremia * ID Dr. Carias help is greatly appreciated * As per Blood Culture 01/01/17 (1/2) that showed S. aureus and Coag Neg Strep: sensitive to levofloxcin and Vancomycin * Blood cultures (01/02/17): no growth after 5 days X2 * CT Chest showed no interval change when compared to 09/11/16: airspace opacities prominent bilateral lower lobes with associated bronchiectasis with slight increase in pleural effusion * Chest X Ray showed progressive bibasilar consolidation, progressive infiltrates with underlying bibasilar bronchiectasis with inferolateral pleural effusion * F/U Sputum Culture 6). Hx Hypothyroidism * Levothyroxine 88 mcg PO 1x/day 7). Possible ALL Reaction * On night of 01/01/17 patient apparently had redness of face and neck and upper chest and therefore Solumedrol, Pepcid, and Benadryl were given.The Solumedrol may have contributed initially. However white count persistently elevated 8). Hx Ankle Edema * Right Ankle X Ray was unremarkable 9). Hypokalemia * Monitor and replete 10). Prophylactic Measures * Pepcid 20 mg PO 2x/day * Zofran 4 mg IV Q6H PRN * Ambulatory
[2017-01-08] MEDS: Meropenem 1 GM in Sodium Chloride 0.9% 100 ML IVPB SCH ×3 (05:18→21:16)
[2017-01-08] MEDS: Levothyroxine 88 MCG TAB PO SCH (05:39)
[2017-01-08 08:32] LABS: BASO # 0.1 K/uL (0.0-0.2); BASO % 0.5 % (0.0-2.0); EOS # 0.7 K/uL (0.0-0.7); EOS % 4.5 % (0.0-4.0); HEMATOCRIT 34.4 % (35.0-51.0); LYMPH # 2.1 K/uL (1.0-4.3); LYMPH % 14.4 % (20.0-40.0); MEAN CELL VOLUME 84.1 fL (80.0-94.0); MEAN CORPUSCULAR HGB CONC 32.1 g/dL (33.0-37.0); MONO # 0.4 K/uL (0.0-0.8); MONO % 2.6 % (0.0-10.0); RED CELL DISTRIBUTION WIDTH 21.4 % (11.5-14.5); WHITE BLOOD COUNT 14.7 K/uL (4.8-10.8)
[2017-01-08 08:40] LABS: CHLORIDE 100 mmol/L (98-107); POTASSIUM 3.6 mmol/L (3.6-5.2); SODIUM 132 mmol/L (132-148)
[2017-01-08 08:42] LABS: AST/SGOT 66 U/L (17-59); BILIRUBIN,TOTAL 0.6 mg/dL (0.2-1.3); CARBON DIOXIDE 27 mmol/L (22-30); GFR AFRICAN-AMERICAN > 60
[2017-01-08 08:43] LABS: ALB/GLOB RATIO 0.5 (1.0-2.1); ALKALINE PHOSPHATASE 73 U/L (38-126); ALT/SGPT 57 U/L (21-72); BLOOD UREA NITROGEN 15 mg/dL (9-20); CALCIUM 7.1 mg/dl (8.6-10.4); GLUCOSE,RANDOM 80 mg/dL (75-110); MAGNESIUM 1.8 mg/dL (1.6-2.3); PHOSPHOROUS 3.9 mg/dL (2.5-4.5); TOTAL PROTEIN 7.4 g/dL (6.3-8.3)
[2017-01-08] MEDS: Saccharomyces Boulardi 250 mg Cap PO SCH ×2 (10:06→17:17)
[2017-01-08 11:17] LABS: H INFLUENZAE B NOT REQUIRED (NEGATIVE); N MENINGITIS ACY/W135 NOT REQUIRED (NEGATIVE); N MENINGITIS B/ECOLI K1 NOT REQUIRED (NEGATIVE)
[2017-01-08] MEDS ORDERED: Iohexol 240 (50 ml) PO ONE ×2 (14:30)
--- NOTE | 2017-01-08 14:58 | VASCLAB ---
PROCEDURE: Upper Extremity Venous Duplex Exam HISTORY: cough, white count PRIORS: None. TECHNIQUE: Bilateral upper extremity, internal jugular, subclavian, axillary, brachial, ulnar, radial, basilic and upper cephalic veins were evaluated. Flow was assessed with color Doppler, compressibility, assessment of phasic flow and augmentation response. Report prepared by JOSE EDUARDO Pepper, RVT FINDINGS: RIGHT: 1. Internal Jugular: 1.1. Compressibility - Fully compressible: Thrombus - None : Flow - Phasic: Augmentation -Normal: Reflux - None. 2. Subclavian: 2.1. Compressibility - Fully compressible: Thrombus - None : Flow - Phasic: Augmentation -Normal: Reflux - None. 3. Axillary: 3.1. Compressibility - Fully compressible: Thrombus - None : Flow - Phasic: Augmentation -Normal: Reflux - None. 4. Brachial: 4.1. Compressibility - Fully compressible: Thrombus - None: Flow - Phasic: Augmentation -Normal: Reflux - None. 5. Ulnar: 5.1. Compressibility - Fully compressible: Thrombus - None: Flow - Phasic: Augmentation -Normal: Reflux - None. 6. Radial: 6.1. Compressibility - Fully compressible: Thrombus - None: Flow - Phasic: Augmentation - Normal: Reflux - None. 7. Cephalic: 7.1. Compressibility - Fully compressible: Thrombus - None: Flow - Phasic: Augmentation -Normal: Reflux - None. 8. Basilic: 8.1. Compressibility - Partial: Thrombus - Acute: Flow - Reduced : Augmentation -None: Reflux - None. LEFT: 1. Internal Jugular: 1.1. Compressibility - Fully compressible: Thrombus - None : Flow - Phasic: Augmentation -Normal: Reflux - None. 2. Subclavian: 2.1. Compressibility - Fully compressible: Thrombus - None : Flow - Phasic: Augmentation -Normal: Reflux - None. 3. Axillary: 3.1. Compressibility - Fully compressible: Thrombus - None : Flow - Phasic: Augmentation -Normal: Reflux - None. 4. Brachial: 4.1. Compressibility - Fully compressible: Thrombus - None: Flow - Phasic: Augmentation -Normal: Reflux - None. 5. Ulnar: 5.1. Compressibility - Fully compressible: Thrombus - None: Flow - Phasic: Augmentation -Normal: Reflux - None. 6. Radial: 6.1. Compressibility - Fully compressible: Thrombus - None: Flow - Phasic: Augmentation - Normal: Reflux - None. 7. Cephalic: 7.1. Compressibility - Fully compressible: Thrombus - None: Flow - Phasic: Augmentation -Normal: Reflux - None. 8. Basilic: 8.1. Compressibility - Fully compressible: Thrombus - None: Flow - Phasic: Augmentation -Normal: Reflux - None. OTHER FINDINGS: Right: None. Left: None. IMPRESSION: Right: A localized acute thrombosis of the right cephalic vein at the antecubital fossa with reduction of the venous return. Left: No evidence of vein thrombosis of the left upper extremity with excellent venous flow. Normal valve function noted of the left side.
--- NOTE | 2017-01-08 14:59 | VASCLAB ---
PROCEDURE: Lower Extremity Venous Duplex Exam. HISTORY: cough, white count PRIORS: None. TECHNIQUE: Bilateral common femoral, femoral, popliteal and posterior tibial, peroneal and great saphenous veins were evaluated. Flow was assessed with color Doppler, compressibility, assessment of phasic flow and augmentation response. Report prepared by Dillan Martinez, JOSE EDUARDO, RVT FINDINGS: RIGHT: 1. Common Femoral Vein: 1.1. Compressibility - Fully compressible: Thrombus - None : Flow - Phasic: Augmentation -Normal: Reflux - None. 2. Femoral Vein: 2.1. Compressibility - Fully compressible: Thrombus - None : Flow - Phasic: Augmentation -Normal: Reflux - None. 3. Popliteal Vein: 3.1. Compressibility - Fully compressible: Thrombus - None : Flow - Phasic: Augmentation -Normal: Reflux - None. 4. Posterior Tibial Vein: 4.1. Compressibility - Fully compressible: Thrombus - None: Flow - Phasic: Augmentation -Normal: Reflux - None. 5. Peroneal Vein: 5.1. Compressibility - Fully compressible: Thrombus - None: Flow - Phasic: Augmentation -Normal: Reflux - None. 6. Great Saphenous Vein: 6.1. Compressibility - Fully compressible: Thrombus - None: Flow - Phasic: Augmentation - Normal: Reflux - None. LEFT: 1. Common Femoral Vein: 1.1. Compressibility - Fully compressible: Thrombus - None: Flow - Phasic: Augmentation -Normal: Reflux - None. 2. Femoral Vein: 2.1. Compressibility - Fully compressible: Thrombus - None: Flow - Phasic: Augmentation -Normal: Reflux - None. 3. Popliteal Vein: 3.1. Compressibility - Fully compressible: Thrombus - None : Flow - Phasic: Augmentation -Normal: Reflux - None. 4. Posterior Tibial Vein: 4.1. Compressibility - Fully compressible: Thrombus - None: Flow - Phasic: Augmentation -Normal: Reflux - None. 5. Peroneal Vein: 5.1. Compressibility - Fully compressible: Thrombus - None: Flow - Phasic: Augmentation -Normal: Reflux - None. 6. Great Saphenous Vein: 6.1. Compressibility - Fully compressible: Thrombus - None: Flow - Phasic: Augmentation - Normal: Reflux - None. OTHER FINDINGS: Right: None significant. Left: None significant. IMPRESSION: Right: No evidence of deep or superficial vein thrombosis of the right lower extremity. Normal valve function noted of the right side. Left: No evidence of deep or superficial vein thrombosis of the left lower extremity. Normal valve function noted of the left side.
[2017-01-08] MEDS ORDERED: Iodixanol 320 MG/ML 100 ML BOTTLE IV ONE (18:04)
--- NOTE | 2017-01-08 19:21 | CT ---
EXAM: CT Abdomen and Pelvis With Intravenous Contrast CLINICAL HISTORY: 51 years old, male; Signs and symptoms; Mass, lump, or swelling; Generalized; Additional info: R/u mass TECHNIQUE: Axial computed tomography images of the abdomen and pelvis with intravenous contrast. This CT exam was performed using one or more of the following dose reduction techniques: automated exposure control, adjustment of the mA and/or kV according to patient size, and/or use of iterative reconstruction technique. Coronal and sagittal reformatted images were created and reviewed. CONTRAST: 100 mL of [id number] administered intravenously. COMPARISON: No relevant prior studies available. FINDINGS: Lower thorax: No acute findings. ABDOMEN: Liver: Unremarkable. No mass. Gallbladder and bile ducts: Unremarkable. No calcified stones. No ductal dilation. Pancreas: An 8mm low density lesion is noted in the tail the pancreas. No ductal dilation. Spleen: Unremarkable. No splenomegaly. Adrenals: Unremarkable. No mass. Kidneys and ureters: There is a 2 cm low density lesion in the midportion of the right kidney with a density measurement of 9H. There is a nonobstructing calcification noted in the midportion of the right kidney measuring 3 mm. Stomach and bowel: Unremarkable. No obstruction. No mucosal thickening. Appendix: No findings to suggest acute appendicitis. PELVIS: Bladder: Unremarkable. No mass. Reproductive: The prostate measures 3 x 3.8 x 4 cm. ABDOMEN and PELVIS: Intraperitoneal space: There is a large amount of stool seen in the abdomen. No free air. No significant fluid collection. Bones/joints: No acute fracture. No dislocation. Soft tissues: Unremarkable. Vasculature: Unremarkable. No abdominal aortic aneurysm. Lymph nodes: Unremarkable. No enlarged lymph nodes. IMPRESSION: 1. Bibasilar atelectasis/consolidation with bronchiectasis 2. 8mm low density lesion in the tail of the pancreas. The report from a previous CT scan indicated a 3 mm lesion in the pancreatic tail. Comparison with old studies would be helpful. Recommend further evaluation with pancreas-dedicated MRI with MRCP. 3. Right renal cysts. 4. Nonobstructing 3 mm calcification in the midportion the right kidney. EXAM: CT Chest With Intravenous Contrast CLINICAL HISTORY: 51 years old, male; Signs and symptoms; Mass, lump, or swelling; Generalized; Additional info: R/u mass TECHNIQUE: Axial computed tomography images of the chest with intravenous contrast. This CT exam was performed using one or more of the following dose reduction techniques: automated exposure control, adjustment of the mA and/or kV according to patient size, and/or use of iterative reconstruction technique. Coronal and sagittal reformatted images were created and reviewed. CONTRAST: 100 mL of [id number] administered intravenously. EXAM DATE/TIME: Exam ordered 01/08/2017 10:49 AM COMPARISON: No relevant prior studies available. FINDINGS: Lungs: Segmental atelectasis/consolidation with bronchiectasis is noted at the in the right lower lobe and right middle lobe. Scattered areas are as thickening of the intralobular septa are noted in the nondependent portion of the right mid and upper lung field. There are multiple small cystic spaces in noted within the lung parenchyma. There is some atelectasis and bronchiectasis noted in the left lower lobe at the lung base. Scattered areas of thickening of the interlobular septa are noted in the left in the subpleural lung. Pleural space: Unremarkable. No pneumothorax. No significant effusion. Heart: Unremarkable. No cardiomegaly. No significant pericardial effusion. Mediastinum: There is a small hiatal hernia. Bones/joints: Unremarkable. No acute fracture. No dislocation. Soft tissues: Unremarkable. Vasculature: Unremarkable. No thoracic aortic aneurysm. Lymph nodes: Subcentimeter lymph nodes are seen in the prevascular space. The precarinal vince mass is present measuring 2.2 x 1.3 x 1.3 cm. IMPRESSION: 1. Segmental atele 2. Small hiatal hernia. ctasis/consolidation with bronchiectasis bibasally. Scattered areas of thickening of the intralobular septa in the subpleural lung. Differential diagnostic considerations include desquamative interstitial pneumonia, chronic aspiration, sarcoid, connective tissue disease, cryptogenic organizing pneumonia, bronchoalveolar carcinoma. No previous studies are available for direct comparison.
--- NOTE | 2017-01-08 21:18 | CP.PCM.PN ---
<Kadi aGrzon - Last Filed: 01/08/17 21:15> Subjective - Date & Time of Evaluation Date of Evaluation: 01/08/17 Time of Evaluation: 07:00 - Subjective Subjective: PGY1- Medicine Note- Dr. Mccartney's Service Patient seen and examined at bedside and in no acute distress. Patient did not sleep well again last night because he felt chills and fever. Patient has mild cough with minimal phlegm. Patient denies SOB, chest pain, abdominal pain, constipation, diarrhea. Objective - Vital Signs/Intake and Output Vital Signs (last 24 hours): Temp Pulse Resp BP Pulse Ox 98.8 F 83 20 108/68 100 01/08/17 16:22 01/08/17 16:22 01/08/17 16:22 01/08/17 16:22 01/08/17 16:22 Intake and Output: 01/08/17 01/09/17 18:59 06:59 Intake Total 340 Balance 340 - Medications Medications: Current Medications Aspirin (Aspirin Chewable) 81 mg PO DAILY [facility] Last Admin: 01/08/17 13:11 Dose: 81 mg Clopidogrel Bisulfate (Plavix) 75 mg PO DAILY [facility] Last Admin: 01/08/17 10:06 Dose: 75 mg Famotidine (Pepcid) 20 mg PO BID [facility] Last Admin: 01/08/17 17:17 Dose: 20 mg Meropenem 1 gm/ Sodium (Chloride) 100 mls @ 100 mls/hr IVPB Q8 [facility] Last Admin: 01/08/17 13:11 Dose: 100 mls/hr Isoniazid (Niazid) 300 mg PO DAILY [facility] Last Admin: 01/01/17 11:48 Dose: 300 mg Levothyroxine Sodium (Synthroid) 88 mcg PO DAILY@0630 [facility] Last Admin: 01/08/17 05:39 Dose: 88 mcg Metronidazole (Flagyl) 500 mg PO Q8 [facility] Last Admin: 01/08/17 13:09 Dose: 500 mg Ondansetron HCl (Zofran Inj) 4 mg IVP Q6H PRN PRN Reason: Nausea/Vomiting Pyridoxine HCl (Vitamin B6) 25 mg PO DAILY [facility] Last Admin: 01/08/17 10:06 Dose: 25 mg Saccharomyces Boulardii (Florastor) 250 mg PO BID [facility] Last Admin: 01/08/17 17:17 Dose: 250 mg - Labs Labs: 01/08/17 08:23 01/08/17 08:23 - Constitutional Appears: Well - Head Exam Head Exam: ATRAUMATIC, NORMAL INSPECTION, NORMOCEPHALIC - Eye Exam Eye Exam: EOMI, Normal appearance, PERRL - ENT Exam ENT Exam: Mucous Membranes Moist, Normal Exam - Neck Exam Neck Exam: Full ROM, Normal Inspection. absent: Lymphadenopathy - Respiratory Exam Respiratory Exam: Clear to Ausculation Bilateral, NORMAL BREATHING PATTERN - Cardiovascular Exam Cardiovascular Exam: REGULAR RHYTHM, +S1, +S2. absent: Murmur - GI/Abdominal Exam GI & Abdominal Exam: Soft, Normal Bowel Sounds. absent: Tenderness - Extremities Exam Extremities Exam: Full ROM, Normal Capillary Refill, Normal Inspection, Pedal Edema. absent: Joint Swelling Additional comments: trace pedal edema - Back Exam Back Exam: NORMAL INSPECTION - Neurological Exam Neurological Exam: Alert, Awake, Oriented x3 - Psychiatric Exam Psychiatric exam: Normal Affect, Normal Mood - Skin Skin Exam: Intact, Normal Color, Warm Assessment and Plan - Assessment and Plan (Free Text) Assessment: (1) Leukocytosis Assessment & Plan: wbc on 01/08: 14.7 unknown source, fever of 100.8 on 01/04 wbc: 18.9 on 01/06 01/06: cxray:hypoinflation, bronchovascular crowing, bibasilar atelectasis or infiltrates, probable trace bilateral pleural effusions as per Dr. Carias, patient put on isolation parameters AFB 01/03: negative f/u AFB culture CRP >15 LDH>750 ESR Legionella, Strep Pneumo (-) Mycoplasma procalcitonin<.05 dopplers of lower and upper extremities: negative except abnormal finding of right cephalic vein -aspirin 81mg daily HIV negative needs two more negative AFBs f/u chest ct f/u abd/pelv ct esr, crp, LDH for 01/09 Status: Acute (2) Latent Tuberculosis Assessment & Plan: Pending quantiferon test result - indeterminate Isonazid 300mg PO Daily started B6 25 mg PO daily (01/05) F/u with patient's PMD regarding TB diagnosis: * As per conversation with Dr. Pete Gresham and Dr. Stoll (who was covering for PMD Dr. Bran Klein [phone]) on 01/02/17 and he confirmed that patient was being treated with Isoniazid 300 mg PO 1x/day by Dr. Klein for TB Prophylaxis Web Content Specialist Dr. Mckeon----> Help appreciated * Confirmed that patient was being treated prophylactically with Isoniazid * Therefore respiratory isolation was discontinued on 01/02/17 Imaging: CT chest: No significant interval change in the lungs since the previous exam. Interval slight increase in the size of the pleural effusion. Otherwise no significant interval change 01/01 Chest X-ray: Progressive bibasilar consolidations. Progressive infiltrates in this patient with underlying bibasilar bronchiectasis here is inferred. Inferolateral pleural effusions with pleural thickening -renoted Status: Acute (3) Fever Assessment & Plan: 01/08: 101.3 at 1:04 01/04 100.8 at 23:50 ID consult (Dr. Carias)---> Help appreciated Tmax: 100.6 (01/01/17) Blood culture/ gram stain : (+) for gram positive cocci/ Coagulase negative staphylococcus Vancomycin 1gm IVPB Q12H Zosyn 3.375gm IVPB Q6H changed to Meropenem 1 gm on 01/04 Status: Acute (4) Bacteremia Assessment & Plan: ID Consult (Dr. Carias on board)---> Help appreciated Blood culture repeat on 01/02 negative for 72 hours, Urine Culture 01/01 negative Blood culture/ gram stain : (+) for gram positive cocci/ Coagulase negative staphylococcus Vancomycin 1gm IVPB Q12H Zosyn 3.375gm IVPB Q6H stopped on 01/03 Status: Acute (5) Lower Extremity Edema Assessment & Plan: Echo:mild pulmonary hypertension. normal left ventricle, normal EF. Lasix 20 mg once given 01/06 Status: Acute (6) Vertigo Assessment & Plan: Vestibular Disequilibrium Right Ear Possibly secondary to drug-induced (Minocycline HCl - discontinued) * Zofran 4mg IV Q6H prn --> for associated nausea and vomiting Neurology consult ( Dr. pSears)---> Help appreciated As per neurology: * Hydration * Meclizine PRN * Plavix * Out of bed * No further work up needed 01/02: HIV antibody 1 and 2 screen ordered: Negative RPR: Negative Imaging: ECHO: mild pulmonary hypertension. normal left ventricle, normal EF. CT head: No acute findings Brain MRI: No acute intracranial hemorrhage. Minimal of prolonged T2 signal changes seen in the periventricular white matter which may in part be related to CSF interface artifact however the possibility of some minimal concomitant chronic sequela of small vessel disease not excluded. Mild generalized volume loss. No enhancing masses. No evidence of unusual meningeal enhancement. Carotid doppler : Duplex scan does not suggest hemodynamically significant stenosis of the right and left extracranial carotid arteries Chest X-ray: Progressive bibasilar consolidations. Progressive infiltrates in this patient with underlying bibasilar bronchiectasis here is inferred. Inferolateral pleural effusions with pleural thickening -renoted Status: Resolved (7) Diarrhea Assessment & Plan: R/O C. Dif- C dif toxin, stool culture, ova and parasite Flagyl 500 mg PO q8h Status: Resolved (8) Anemia Assessment & Plan: 01/08: 11.1/34.3 H/H 01/06: 10.9/33 H/H on admission: 11.1/34.6 Iron studies: * Iron 75 * TIBC : 207 * % Saturation: 34 * Ferritin: 454 Monitor H/H Status: Acute (9) History of hypothyroidism Assessment & Plan: Continue home medication: * Synthroid 88mcg PO daily * TSH normal Status: Acute (10) Edema of right ankle Assessment & Plan: Ankle X-ray: No fracture or arthritis. Mild circumferential soft tissue swelling bilaterally. Pending b/l Doppler official report Stopped fluids (01/03/17) Status: resolved (11) Prophylactic measure Assessment & Plan: SCDs Ambulating Pepcid 20mg PO BID Florastor 250mg PO BID Status: Acute <Tanika Mccartney V - Last Filed: 01/09/17 00:10> Objective - Vital Signs/Intake and Output Vital Signs (last 24 hours): Temp Pulse Resp BP Pulse Ox 98.8 F 83 20 108/68 100 01/08/17 16:22 01/08/17 16:22 01/08/17 16:22 01/08/17 16:22 01/08/17 16:22 Intake and Output: 01/08/17 01/09/17 18:59 06:59 Intake Total 340 550 Balance 340 550 - Medications Medications: Current Medications Aspirin (Aspirin Chewable) 81 mg PO DAILY [facility] Last Admin: 01/08/17 13:11 Dose: 81 mg Clopidogrel Bisulfate (Plavix) 75 mg PO DAILY [facility] Last Admin: 01/08/17 10:06 Dose: 75 mg Famotidine (Pepcid) 20 mg PO BID [facility] Last Admin: 01/08/17 17:17 Dose: 20 mg Meropenem 1 gm/ Sodium (Chloride) 100 mls @ 100 mls/hr IVPB Q8 [facility] Last Admin: 01/08/17 21:16 Dose: 100 mls/hr Isoniazid (Niazid) 300 mg PO DAILY [facility] Last Admin: 01/01/17 11:48 Dose: 300 mg Levothyroxine Sodium (Synthroid) 88 mcg PO DAILY@0630 [facility] Last Admin: 01/08/17 05:39 Dose: 88 mcg Metronidazole (Flagyl) 500 mg PO Q8 [facility] Last Admin: 01/08/17 21:16 Dose: 500 mg Ondansetron HCl (Zofran Inj) 4 mg IVP Q6H PRN PRN Reason: Nausea/Vomiting Pyridoxine HCl (Vitamin B6) 25 mg PO DAILY [facility] Last Admin: 01/08/17 10:06 Dose: 25 mg Saccharomyces Boulardii (Florastor) 250 mg PO BID [facility] Last Admin: 01/08/17 17:17 Dose: 250 mg - Labs Labs: 01/08/17 08:23 01/08/17 08:23 Attending/Attestation - Attestation I have personally seen and examined this patient.: Yes I have fully participated in the care of the patient.: Yes I have reviewed all pertinent clinical information, including history, physical exam and plan: Yes Notes (Text): This is late computer entry for 01/08/17. Patient seen, examined, and case discussed with day-time resident. Patient seen reporting cough, no hemotypsis, no muscle aches/no pains. Patient reports good appetite. Patient's swelling around the ankle has improved per observation of resident on the case. Patient report he feels "lumps and bumps" denies diarrhea. Patient ordered today for ESR, CRP, and LDH to see trend. Patient has superficial thrombophlebitis noted over right upper extremity--> started on Aspirin. White count downtrending today Order for repeat CT Chest/Abdomen/Pelvis given elevated inflammatory markers, elevated LDH Assessment/Plan 1) Leukocytosis * Persistent white count * Ordered for ESR, CRP, LDH-->all elevated (79, >15.00, 750); procalcitonin low * Ordered for venous dopplers (upper and lower) r/o DVT * Negative C. dif; No ova and parasite * Meropenem 1 gram IV Q 8hours (active since 01/04/17) * Flagyl 500mg PO Q 8 hours (active since 01/05/17) * Florastor 250mg PO bid * As per Blood Culture 01/01/17 (06/23) that showed S. aureus and Coag Neg Strep: sensitive to levofloxcin and Vancomycin * Blood cultures (01/02/17): no growth after 5 days X2 2). Vestibular Disequilibrium Right Ear * Neurology (Dr. Lee) o board-->help appreciated-->started on Plavix 75mg Po daily * Possible secondary to drug side effect * CT Head showed NO acute changes * MRI Brain showed NO hemorrhages/mass * Carotid Doppler showed NO significant stenosis 3). TB Prophylaxis * My colleague spoke with Dr. Stoll (who was covering for PMD Dr. Bran Klien [phone]) on 01/02/17 and he confirmed that patient was being treated with Isoniazid 300 mg PO 1x/day by Dr. Klein for TB Prophylaxis * My colleague spoke with Web Content Specialist Dr. Mckeon and he confirmed that patient was being treated prophylactically with Isoniazid * Dr. Carias (infectious disease) on board-->persistent white count, placed back on isolation, collection of AFB * Negative Legionella * Mycobacterial Culture (01/06/17): f/u * Mycobacterial Culture (01/07/17): f/u 4). Anemia secondary to ? * Iron studies were unremarkable * F/U with Hematology as an outpatient for further workup 5). Bacteremia * ID Dr. Carias help is greatly appreciated * As per Blood Culture 01/01/17 (06/23) that showed S. aureus and Coag Neg Strep: sensitive to levofloxcin and Vancomycin * Blood cultures (01/02/17): no growth after 5 days X2 * CT Chest showed no interval change when compared to 09/11/16: airspace opacities prominent bilateral lower lobes with associated bronchiectasis with slight increase in pleural effusion * Chest X Ray showed progressive bibasilar consolidation, progressive infiltrates with underlying bibasilar bronchiectasis with inferolateral pleural effusion * F/U Sputum Culture 6). Hx Hypothyroidism * Levothyroxine 88 mcg PO 1x/day 7). Possible ALL Reaction * On night of 01/01/17 patient apparently had redness of face and neck and upper chest and therefore Solumedrol, Pepcid, and Benadryl were given.The Solumedrol may have contributed initially. However white count persistently elevated 8). Hx Ankle Edema * Right Ankle X Ray was unremarkable 9). Hypokalemia * Monitor and replete 10) Superficial thrombophlebitis * noted in upper extremity US * started on Aspirin 11). Prophylactic Measures * Pepcid 20 mg PO 2x/day * Zofran 4 mg IV Q6H PRN * Ambulatory
[2017-01-09] MEDS: Meropenem 1 GM in Sodium Chloride 0.9% 100 ML IVPB SCH ×3 (05:34→21:09)
[2017-01-09] MEDS: Levothyroxine 88 MCG TAB PO SCH (05:34)
[2017-01-09 06:41] LABS: BASO % 0.2 % (0.0-2.0); EOS # 0.5 K/uL (0.0-0.7); EOS % 3.5 % (0.0-4.0); HEMATOCRIT 34.7 % (35.0-51.0); LYMPH # 2.3 K/uL (1.0-4.3); LYMPH % 16.4 % (20.0-40.0); MEAN CORPUSCULAR HEMOGLOBIN 27.2 pg (27.0-31.0); MEAN CORPUSCULAR HGB CONC 32.8 g/dL (33.0-37.0); MONO # 0.4 K/uL (0.0-0.8); MONO % 2.6 % (0.0-10.0); NRBC % 0.1 % (0.0-2.0); RED CELL DISTRIBUTION WIDTH 21.3 % (11.5-14.5); WHITE BLOOD COUNT 13.9 K/uL (4.8-10.8)
--- NOTE | 2017-01-09 07:07 | CP.PCM.PN ---
<Eugene Bee - Last Filed: 01/09/17 15:51> Subjective - Date & Time of Evaluation Date of Evaluation: 01/09/17 Time of Evaluation: 07:06 - Subjective Subjective: PGY-[address] Mccartney's service: Patient was seen at bedside in no acute distress and resting comfortably. Patient states that he is feeling much better overall, but has been experiencing mild headaches that he reports only occur when he tries to get out of bed and then disappear. He denies change in vision, pasresthesias/weakness in upper extremities, or scotoma. He admits the dizziness he was experiencing on admission has resolved. Patient reports that he slept well last night. Patient denies subjective fever, or chills.chest pain, palpitations, SOB, abdominal pain, constipation and diarrhea. Objective - Vital Signs/Intake and Output Vital Signs (last 24 hours): Temp Pulse Resp BP Pulse Ox 99.7 F H 75 20 112/52 L 96 01/09/17 04:00 01/09/17 04:16 01/09/17 04:00 01/09/17 04:00 01/09/17 04:00 Intake and Output: 01/09/17 01/09/17 06:59 18:59 Intake Total 550 Balance 550 - Medications Medications: Current Medications Aspirin (Aspirin Chewable) 81 mg PO DAILY [facility] Last Admin: 01/08/17 13:11 Dose: 81 mg Clopidogrel Bisulfate (Plavix) 75 mg PO DAILY [facility] Last Admin: 01/08/17 10:06 Dose: 75 mg Famotidine (Pepcid) 20 mg PO BID [facility] Last Admin: 01/08/17 17:17 Dose: 20 mg Meropenem 1 gm/ Sodium (Chloride) 100 mls @ 100 mls/hr IVPB Q8 [facility] Last Admin: 01/09/17 05:34 Dose: 100 mls/hr Isoniazid (Niazid) 300 mg PO DAILY [facility] Last Admin: 01/01/17 11:48 Dose: 300 mg Levothyroxine Sodium (Synthroid) 88 mcg PO DAILY@0630 [facility] Last Admin: 01/09/17 05:34 Dose: 88 mcg Metronidazole (Flagyl) 500 mg PO Q8 [facility] Last Admin: 01/09/17 05:34 Dose: 500 mg Ondansetron HCl (Zofran Inj) 4 mg IVP Q6H PRN PRN Reason: Nausea/Vomiting Pyridoxine HCl (Vitamin B6) 25 mg PO DAILY [facility] Last Admin: 01/08/17 10:06 Dose: 25 mg Saccharomyces Boulardii (Florastor) 250 mg PO BID [facility] Last Admin: 01/08/17 17:17 Dose: 250 mg - Labs Labs: 01/08/17 08:23 01/08/17 08:23 - Constitutional Appears: Non-toxic, No Acute Distress - Head Exam Head Exam: ATRAUMATIC, NORMOCEPHALIC - Eye Exam Eye Exam: EOMI. absent: Scleral icterus Pupil Exam: PERRL - ENT Exam ENT Exam: Mucous Membranes Moist - Neck Exam Neck Exam: absent: Lymphadenopathy - Respiratory Exam Respiratory Exam: Clear to Ausculation Bilateral, NORMAL BREATHING PATTERN. absent: Wheezes - Cardiovascular Exam Cardiovascular Exam: REGULAR RHYTHM, +S1, +S2 - GI/Abdominal Exam GI & Abdominal Exam: Soft, Normal Bowel Sounds. absent: Tenderness - Extremities Exam Extremities Exam: Normal Inspection. absent: Pedal Edema - Neurological Exam Neurological Exam: Alert, Awake, Oriented x3 - Psychiatric Exam Psychiatric exam: Normal Affect, Normal Mood - Skin Skin Exam: Normal Color, Warm Assessment and Plan - Assessment and Plan (Free Text) Plan: Leukocytosis Assessment & Plan: WBC downtrending Pt afebrile this AM CXR (01/06/17):hypoinflation, bronchovascular crowing, bibasilar atelectasis or infiltrates, probable trace bilateral pleural effusions as per Dr. Carias, patient put on isolation parameters CT/C/A/P (01/09/17): Segmental atelectasis with bronchiectasis bibasally. Scattered areas of thickening in intralobular septum in subpleural lung. DDX include interstitial pneumonia, chronic aspiration, sarcoid, connective tissue diseasee, cryptogenic organizing pneumoina, broncheoalveolar carcinoma. AFB 01/07: PRELIM - negative, 2nd AFB 01/07 - PRELIM - negative, AFB 01/03: PRELIM - negative AFB culture (01/06/17): No acid fast bacilli seen CRP >15 LDH>750 ESR (01/09/17) 101, (01/07/17) ESR 79 Legionella, Strep Pneumo (-), Mycoplasma pending procalcitonin<.05 dopplers of lower and upper extremities: negative except abnormal finding of right cephalic vein -aspirin 81mg daily HIV negative Latent Tuberculosis Assessment & Plan: Pending quantiferon test result - indeterminate Isonazid 300mg PO Daily started B6 25 mg PO daily (01/05) F/u with patient's PMD regarding TB diagnosis: * As per conversation with Dr. Pete Gresham and Dr. Stoll (who was covering for PMD Dr. Bran Klein [phone]) on 01/02/17 and he confirmed that patient was being treated with Isoniazid 300 mg PO 1x/day by Dr. Klein for TB Prophylaxis Graduate Studies Dean Dr. Barrow----> Help appreciated * f/u reccs Imaging: CT chest: No significant interval change in the lungs since the previous exam. Interval slight increase in the size of the pleural effusion. Otherwise no significant interval change 01/01 Chest X-ray: Progressive bibasilar consolidations. Progressive infiltrates in this patient with underlying bibasilar bronchiectasis here is inferred. Inferolateral pleural effusions with pleural thickening -renoted Fever Assessment & Plan: 01/09: Afebrile overnight ID consult (Dr. Carias)---> Help appreciated Tmax: 100.6 (01/01/17) Blood culture/ gram stain : (+) for gram positive cocci/ Coagulase negative staphylococcus Flagyl 500mg PO Q8 Zosyn 3.375gm IVPB Q6H changed to Meropenem 1 gm on 01/04 Status: Acute Bacteremia Assessment & Plan: ID Consult (Dr. Carias on board)---> Help appreciated Blood culture repeat on 01/02 negative for 72 hours, Urine Culture 01/01 negative Blood culture/ gram stain : (+) for gram positive cocci/ Coagulase negative staphylococcus Flagyl 500mg PO Q8 Meropenem 1 gm IV Q8H Status: Acute Pancreatic Lesion CT C/A/P (01/08/17): 8mm low density lesion in tail of pancreas. Report from CT indicated a 3mm lesion in the pancreatic tail. No old study to compare. REcommend further evaluation with pancreas dedicated MRI w MRCP (see full report ) Dr. Jonas, GI consulted: help appreciated - f/u reccs Lower Extremity Edema Resolved Echo:mild pulmonary hypertension. normal left ventricle, normal EF. Lasix 20 mg once given 01/06 Vertigo Resolved Vestibular Disequilibrium Right Ear Possibly secondary to drug-induced (Minocycline HCl - discontinued) * Zofran 4mg IV Q6H prn --> for associated nausea and vomiting Neurology consult ( Dr. Spears)---> Help appreciated As per neurology: * Hydration * Meclizine PRN * Plavix * Out of bed * No further work up needed 01/02: HIV antibody 1 and 2 screen ordered: Negative RPR: Negative Imaging: ECHO: mild pulmonary hypertension. normal left ventricle, normal EF. CT head: No acute findings Brain MRI: No acute intracranial hemorrhage. Minimal of prolonged T2 signal changes seen in the periventricular white matter which may in part be related to CSF interface artifact however the possibility of some minimal concomitant chronic sequela of small vessel disease not excluded. Mild generalized volume loss. No enhancing masses. No evidence of unusual meningeal enhancement. Carotid doppler : Duplex scan does not suggest hemodynamically significant stenosis of the right and left extracranial carotid arteries Chest X-ray: Progressive bibasilar consolidations. Progressive infiltrates in this patient with underlying bibasilar bronchiectasis here is inferred. Inferolateral pleural effusions with pleural thickening -renoted Diarrhea Assessment & Plan: f/u C. Dif- C dif toxin, stool culture, ova and parasite Flagyl 500 mg PO q8h Status: Resolved Anemia Assessment & Plan: 01/08: 11.4/34.7 Stable H/H on admission: 11.1/34.6 Iron studies: * Iron 75 * TIBC : 207 * % Saturation: 34 * Ferritin: 454 Monitor H/H Status: Acute History of hypothyroidism Assessment & Plan: Continue home medication: * Synthroid 88mcg PO daily * TSH normal Status: Acute Edema of right ankle Assessment & Plan: Ankle X-ray: No fracture or arthritis. Mild circumferential soft tissue swelling bilaterally. Pending b/l Doppler official report Stopped fluids (01/03/17) Status: resolved Prophylactic measure Assessment & Plan: SCDs Ambulating Pepcid 20mg PO BID Florastor 250mg PO BID Status: Acute <Tanika Mccartney V - Last Filed: 01/11/17 10:03> Objective - Vital Signs/Intake and Output Vital Signs (last 24 hours): Temp Pulse Resp BP Pulse Ox 98.7 F 82 20 113/52 L 100 01/11/17 04:00 07/23/17 04:00 01/11/17 04:00 01/11/17 04:00 01/11/17 04:00 Intake and Output: 01/11/17 01/11/17 06:59 18:59 Intake Total 780 Balance 780 - Medications Medications: Current Medications Acetaminophen (Tylenol 325mg Tab) 650 mg PO Q6 PRN PRN Reason: Fever >100.4 F Last Admin: 01/11/17 00:00 Dose: 650 mg Aspirin (Aspirin Chewable) 81 mg PO DAILY [facility] Last Admin: 01/11/17 09:35 Dose: 81 mg Clopidogrel Bisulfate (Plavix) 75 mg PO DAILY [facility] Last Admin: 01/11/17 09:35 Dose: 75 mg Famotidine (Pepcid) 20 mg PO BID [facility] Last Admin: 01/11/17 09:35 Dose: 20 mg Meropenem 1 gm/ Sodium (Chloride) 100 mls @ 100 mls/hr IVPB Q8 [facility] Last Admin: 01/11/17 06:12 Dose: 100 mls/hr Vancomycin/Sodium Chloride (Vancocin) 1 gm in 200 mls @ 133 mls/hr IVPB Q12H [facility] Stop: 01/15/17 16:31 Last Admin: 01/11/17 04:29 Dose: 133 mls/hr Isoniazid (Niazid) 300 mg PO DAILY [facility] Last Admin: 01/01/17 11:48 Dose: 300 mg Levothyroxine Sodium (Synthroid) 88 mcg PO DAILY@0630 [facility] Last Admin: 01/11/17 06:12 Dose: 88 mcg Ondansetron HCl (Zofran Inj) 4 mg IVP Q6H PRN PRN Reason: Nausea/Vomiting Pyridoxine HCl (Vitamin B6) 25 mg PO DAILY [facility] Last Admin: 01/11/17 09:35 Dose: 25 mg Saccharomyces Boulardii (Florastor) 250 mg PO BID [facility] Last Admin: 01/11/17 09:35 Dose: 250 mg - Labs Labs: 01/11/17 08:43 01/11/17 08:43 Attending/Attestation - Attestation I have personally seen and examined this patient.: Yes I have fully participated in the care of the patient.: Yes I have reviewed all pertinent clinical information, including history, physical exam and plan: Yes Notes (Text): This is late computer entry for 01/09/17. Patient seen, examined, and case discussed with day-time resident. Patient seen reporting cough. Reviewed CT Chest/Abdomen/Pelvis-->will consult pulm and GI given abnormal findings Discussed case with infectious disease. Assessment/Plan 1) Pneumonia with Bronchiectasis * Pulmonary (Dr. Barrow)-->f/u recommendations * CT Chest/Abdomen/Pelvis (01/08/17): segmental atelectais. small hiatal hernia, consoliation with bronchiectasis bibasally. Scattered areas of thicken of the intralobular septa in the subpleural lung. Differential diagnostic considerations desequamative interstitial pneumonia, chronic aspiration, sarcoid , connective tissue disase, cryptogenic organizing pneymonia, bronchoalveolar carcinoma. No previous studies are available for direct comparison. * Dr. Carias (infectious disease) on board-->persistent white count, placed back on isolation, collection of AFB * My colleague spoke with Dr. Stoll (who was covering for PMD Dr. Bran Klein [phone]) on 01/02/17 and he confirmed that patient was being treated with Isoniazid 300 mg PO 1x/day by Dr. Klein for TB Prophylaxis * Negative Legionella; Mycobacterial Culture (01/06/17): f/u; Mycobacterial Culture (01/07/17): f/u * Venous doppler (01/08/17): acute thrombosis of right cephalic vein and no evidence of vein thrombosis with left upper extremity w excellent venous flow. * Venous doppler (01/08/17): No DVT nor SVT bilateral lower extremities * Meropenem 1 gram IV Q 8hours (active since 01/04/17) * Flagyl 500mg PO Q 8 hours (active since 01/05/17) * Florastor 250mg PO bid 2) Superficial Thrombophlebitis * Venous doppler (01/08/17): acute thrombosis of right cephalic vein and no evidence of vein thrombosis with left upper extremity w excellent venous flow. * Venous doppler (01/08/17): No DVT nor SVT bilateral lower extremities * Aspirin 81mg PO daily 3) Leukocytosis * Monitor white count * Ordered for ESR, CRP, LDH-->all elevated (79, >15.00, 750); procalcitonin low * CT Chest/Abdomen/Pelvis (01/08/17): segmental atelectais. small hiatal hernia, consoliation with bronchiectasis bibasally. Scattered areas of thicken of the intralobular septa in the subpleural lung. Differential diagnostic considerations desequamative interstitial pneumonia, chronic aspiration, sarcoid , connective tissue disase, cryptogenic organizing pneymonia, bronchoalveolar carcinoma. No previous studies are available for direct comparison. * Up * Venous doppler (01/08/17): acute thrombosis of right cephalic vein and no evidence of vein thrombosis with left upper extremity w excellent venous flow. * Venous doppler (01/08/17): No DVT nor SVT bilateral lower extremities * Aspirin 81mg PO daily * Negative C. dif; No ova and parasite * Meropenem 1 gram IV Q 8hours (active since 01/04/17) * Flagyl 500mg PO Q 8 hours (active since 01/05/17) * Florastor 250mg PO bid * As per Blood Culture 01/01/17 (06/23) that showed S. aureus and Coag Neg Strep: sensitive to levofloxcin and Vancomycin * Blood cultures (01/02/17): no growth after 5 days X2 4). Vestibular Disequilibrium Right Ear * Neurology (Dr. Lee) o board-->help appreciated-->started on Plavix 75mg Po daily * Possible secondary to drug side effect * CT Head showed NO acute changes * MRI Brain showed NO hemorrhages/mass * Carotid Doppler showed NO significant stenosis 5). TB Prophylaxis * My colleague spoke with Dr. Stoll (who was covering for PMD Dr. Bran Klein [phone]) on 01/02/17 and he confirmed that patient was being treated with Isoniazid 300 mg PO 1x/day by Dr. Klein for TB Prophylaxis * My colleague spoke with Graduate Studies Dean Dr. Mckeon and he confirmed that patient was being treated prophylactically with Isoniazid-->not on consult * Dr. Carias (infectious disease) on board-->persistent white count, placed back on isolation, collection of AFB * Negative Legionella * Mycobacterial Culture (01/06/17): f/u * Mycobacterial Culture (01/07/17): f/u 6). Anemia secondary to ? * Iron studies were unremarkable * F/U with Hematology as an outpatient for further workup 7). Bacteremia * ID Dr. Carias help is greatly appreciated * As per Blood Culture 01/01/17 (1/2) that showed S. aureus and Coag Neg Strep: sensitive to levofloxcin and Vancomycin * CT Chest/Abdomen/Pelvis (01/08/17): segmental atelectais. small hiatal hernia, consoliation with bronchiectasis bibasally. Scattered areas of thicken of the intralobular septa in the subpleural lung. Differential diagnostic considerations desequamative interstitial pneumonia, chronic aspiration, sarcoid , connective tissue disase, cryptogenic organizing pneymonia, bronchoalveolar carcinoma. No previous studies are available for direct comparison. * Blood cultures (01/02/17): no growth after 5 days X2 * CT Chest showed no interval change when compared to 09/11/16: airspace opacities prominent bilateral lower lobes with associated bronchiectasis with slight increase in pleural effusion * Chest X Ray showed progressive bibasilar consolidation, progressive infiltrates with underlying bibasilar bronchiectasis with inferolateral pleural effusion * F/U Sputum Culture 8). Hx Hypothyroidism * Levothyroxine 88 mcg PO 1x/day 9). Possible ALL Reaction * No redness on exam noted since I took over this week * On night of 01/01/17 patient apparently had redness of face and neck and upper chest and therefore Solumedrol, Pepcid, and Benadryl were given.The Solumedrol may have contributed initially. However white count persistently elevated 10). Hx Ankle Edema * Right Ankle X Ray was unremarkable 11.). Hypokalemia * Monitor and replete 12). Prophylactic Measures * Pepcid 20 mg PO 2x/day * Zofran 4 mg IV Q6H PRN * Ambulatory
[2017-01-09 07:14] LABS: CHLORIDE 98 mmol/L (98-107); SODIUM 128 mmol/L (132-148)
[2017-01-09 07:16] LABS: GFR AFRICAN-AMERICAN > 60
[2017-01-09 07:17] LABS: ALB/GLOB RATIO 0.5 (1.0-2.1); ALKALINE PHOSPHATASE 77 U/L (38-126); ALT/SGPT 61 U/L (21-72); AST/SGOT 68 U/L (17-59); BILIRUBIN,TOTAL 0.6 mg/dL (0.2-1.3); BLOOD UREA NITROGEN 14 mg/dL (9-20); CARBON DIOXIDE 26 mmol/L (22-30); GLUCOSE,RANDOM 75 mg/dL (75-110); PHOSPHOROUS 3.6 mg/dL (2.5-4.5); TOTAL PROTEIN 7.4 g/dL (6.3-8.3)
[2017-01-09 07:18] LABS: CALCIUM 7.2 mg/dl (8.6-10.4); MAGNESIUM 1.6 mg/dL (1.6-2.3)
[2017-01-09] MEDS: Saccharomyces Boulardi 250 mg Cap PO SCH ×2 (09:26→16:59)
--- NOTE | 2017-01-10 03:14 | CP.PCM.PN ---
<Kadi Garzon - Last Filed: 01/10/17 03:11> Subjective - Date & Time of Evaluation Date of Evaluation: 01/10/17 Time of Evaluation: 07:00 - Subjective Subjective: PGY1-Medicine Note-Dr. Conley Service Patient seen and examined at bedside and is in no acute distress. Patient is having sweats and feels feverish. Patient had a 101.3 fever and Tylenol was given. Patient has mild cough which he says is getting better each day and very little phlegm. Patient denies headache, shortness of breath, chest pain, abdominal pain, nausea, vomiting, constipation, or diarrhea. Objective - Vital Signs/Intake and Output Vital Signs (last 24 hours): Temp Pulse Resp BP Pulse Ox 97.8 F 95 H 20 118/65 100 01/09/17 23:15 01/09/17 23:15 01/09/17 23:15 01/09/17 23:15 01/09/17 23:15 Intake and Output: 01/09/17 01/10/17 18:59 06:59 Intake Total 600 420 Balance 600 420 - Medications Medications: Current Medications Acetaminophen (Tylenol 325mg Tab) 650 mg PO Q6 PRN PRN Reason: Fever >100.4 F Last Admin: 01/09/17 18:35 Dose: 650 mg Aspirin (Aspirin Chewable) 81 mg PO DAILY [facility] Last Admin: 01/09/17 09:23 Dose: 81 mg Clopidogrel Bisulfate (Plavix) 75 mg PO DAILY [facility] Last Admin: 01/09/17 09:23 Dose: 75 mg Famotidine (Pepcid) 20 mg PO BID [facility] Last Admin: 01/09/17 16:59 Dose: 20 mg Meropenem 1 gm/ Sodium (Chloride) 100 mls @ 100 mls/hr IVPB Q8 [facility] Last Admin: 01/09/17 21:09 Dose: 100 mls/hr Isoniazid (Niazid) 300 mg PO DAILY [facility] Last Admin: 01/01/17 11:48 Dose: 300 mg Levothyroxine Sodium (Synthroid) 88 mcg PO DAILY@0630 [facility] Last Admin: 01/09/17 05:34 Dose: 88 mcg Ondansetron HCl (Zofran Inj) 4 mg IVP Q6H PRN PRN Reason: Nausea/Vomiting Pyridoxine HCl (Vitamin B6) 25 mg PO DAILY [facility] Last Admin: 01/09/17 10:39 Dose: 25 mg Saccharomyces Boulardii (Florastor) 250 mg PO BID [facility] Last Admin: 01/09/17 16:59 Dose: 250 mg - Labs Labs: 01/09/17 06:23 01/09/17 06:23 - Constitutional Appears: Well, Non-toxic, No Acute Distress - Head Exam Head Exam: ATRAUMATIC, NORMAL INSPECTION, NORMOCEPHALIC - Eye Exam Eye Exam: EOMI, Normal appearance, PERRL - ENT Exam ENT Exam: Mucous Membranes Moist, Normal Exam - Neck Exam Neck Exam: Full ROM, Normal Inspection. absent: Lymphadenopathy - Respiratory Exam Respiratory Exam: Clear to Ausculation Bilateral, NORMAL BREATHING PATTERN - Cardiovascular Exam Cardiovascular Exam: REGULAR RHYTHM, RRR. absent: Gallop, Rubs, Murmur - GI/Abdominal Exam GI & Abdominal Exam: Soft, Normal Bowel Sounds. absent: Distended, Firm, Guarding - Extremities Exam Extremities Exam: Normal Inspection, Pedal Edema Additional comments: trace pedal edema - Back Exam Back Exam: NORMAL INSPECTION. absent: rash noted - Neurological Exam Neurological Exam: Alert, Awake, Oriented x3 - Psychiatric Exam Psychiatric exam: Normal Affect, Normal Mood - Skin Skin Exam: Intact, Normal Color, Warm Assessment and Plan - Assessment and Plan (Free Text) Assessment: Leukocytosis Assessment & Plan: WBC downtrending Pt afebrile this AM CXR (01/06/17):hypoinflation, bronchovascular crowing, bibasilar atelectasis or infiltrates, probable trace bilateral pleural effusions as per Dr. Carias, patient put on isolation parameters CT/C/A/P (01/09/17): Segmental atelectasis with bronchiectasis bibasally. Scattered areas of thickening in intralobular septum in subpleural lung. DDX include interstitial pneumonia, chronic aspiration, sarcoid, connective tissue diseasee, cryptogenic organizing pneumoina, broncheoalveolar carcinoma. AFB 01/07: PRELIM - negative, 2nd AFB 01/07 - PRELIM - negative, AFB 01/03: PRELIM - negative AFB culture (01/06/17): No acid fast bacilli seen CRP >15 LDH>750 ESR (01/09/17) 101, (01/07/17) ESR 79 Legionella, Strep Pneumo (-), Mycoplasma pending procalcitonin<.05 dopplers of lower and upper extremities: negative except abnormal finding of right cephalic vein -aspirin 81mg daily HIV negative Latent Tuberculosis Assessment & Plan: Pending quantiferon test result - indeterminate Isonazid 300mg PO Daily started B6 25 mg PO daily (01/05) F/u with patient's PMD regarding TB diagnosis: * As per conversation with Dr. Pete Gresham and Dr. Stoll (who was covering for PMD Dr. Bran Klein [phone]) on 01/02/17 and he confirmed that patient was being treated with Isoniazid 300 mg PO 1x/day by Dr. 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 Barrow----> Help appreciated * f/u reccs Imaging: CT chest: No significant interval change in the lungs since the previous exam. Interval slight increase in the size of the pleural effusion. Otherwise no significant interval change 01/01 Chest X-ray: Progressive bibasilar consolidations. Progressive infiltrates in this patient with underlying bibasilar bronchiectasis here is inferred. Inferolateral pleural effusions with pleural thickening -renoted Fever Assessment & Plan: 01/09: Afebrile overnight ID consult (Dr. Carias)---> Help appreciated Tmax: 100.6 (01/01/17) Blood culture/ gram stain : (+) for gram positive cocci/ Coagulase negative staphylococcus Flagyl 500mg PO Q8 Zosyn 3.375gm IVPB Q6H changed to Meropenem 1 gm on 01/04 Status: Acute Bacteremia Assessment & Plan: ID Consult (Dr. Carias on board)---> Help appreciated Blood culture repeat on 01/02 negative for 72 hours, Urine Culture 01/01 negative Blood culture/ gram stain : (+) for gram positive cocci/ Coagulase negative staphylococcus Flagyl 500mg PO Q8 Meropenem 1 gm IV Q8H Status: Acute Pancreatic Lesion CT C/A/P (01/08/17): 8mm low density lesion in tail of pancreas. Report from CT indicated a 3mm lesion in the pancreatic tail. No old study to compare. REcommend further evaluation with pancreas dedicated MRI w MRCP (see full report ) Dr. Jonas, GI consulted: help appreciated - f/u reccs Lower Extremity Edema Resolved Echo:mild pulmonary hypertension. normal left ventricle, normal EF. Lasix 20 mg once given 01/06 Vertigo Resolved Vestibular Disequilibrium Right Ear Possibly secondary to drug-induced (Minocycline HCl - discontinued) * Zofran 4mg IV Q6H prn --> for associated nausea and vomiting Neurology consult ( Dr. Spears)---> Help appreciated As per neurology: * Hydration * Meclizine PRN * Plavix * Out of bed * No further work up needed 01/02: HIV antibody 1 and 2 screen ordered: Negative RPR: Negative Imaging: ECHO: mild pulmonary hypertension. normal left ventricle, normal EF. CT head: No acute findings Brain MRI: No acute intracranial hemorrhage. Minimal of prolonged T2 signal changes seen in the periventricular white matter which may in part be related to CSF interface artifact however the possibility of some minimal concomitant chronic sequela of small vessel disease not excluded. Mild generalized volume loss. No enhancing masses. No evidence of unusual meningeal enhancement. Carotid doppler : Duplex scan does not suggest hemodynamically significant stenosis of the right and left extracranial carotid arteries Chest X-ray: Progressive bibasilar consolidations. Progressive infiltrates in this patient with underlying bibasilar bronchiectasis here is inferred. Inferolateral pleural effusions with pleural thickening -renoted Diarrhea Assessment & Plan: f/u C. Dif- C dif toxin, stool culture, ova and parasite Flagyl 500 mg PO q8h Status: Resolved Anemia Assessment & Plan: 01/08: 11.4/34.7 Stable H/H on admission: 11.1/34.6 Iron studies: * Iron 75 * TIBC : 207 * % Saturation: 34 * Ferritin: 454 Monitor H/H Status: Acute History of hypothyroidism Assessment & Plan: Continue home medication: * Synthroid 88mcg PO daily * TSH normal Status: Acute Edema of right ankle Assessment & Plan: Ankle X-ray: No fracture or arthritis. Mild circumferential soft tissue swelling bilaterally. Pending b/l Doppler official report Stopped fluids (01/03/17) Status: resolved Prophylactic measure Assessment & Plan: SCDs Ambulating Pepcid 20mg PO BID Florastor 250mg PO BID Status: Acute <Tra Ying P - Last Filed: 01/11/17 21:15> Objective - Vital Signs/Intake and Output Vital Signs (last 24 hours): Temp Pulse Resp BP Pulse Ox 99.1 F 87 20 108/55 L 100 01/11/17 15:48 01/11/17 15:48 01/11/17 15:48 01/11/17 15:48 01/11/17 15:48 Intake and Output: 01/11/17 01/12/17 18:59 06:59 Intake Total 880 Balance 880 - Medications Medications: Current Medications Acetaminophen (Tylenol 325mg Tab) 650 mg PO Q6 PRN PRN Reason: Fever >100.4 F Last Admin: 01/11/17 21:03 Dose: 650 mg Aspirin (Aspirin Chewable) 81 mg PO DAILY [facility] Last Admin: 01/11/17 09:35 Dose: 81 mg Clopidogrel Bisulfate (Plavix) 75 mg PO DAILY [facility] Last Admin: 01/11/17 09:35 Dose: 75 mg Famotidine (Pepcid) 20 mg PO BID [facility] Last Admin: 01/11/17 17:01 Dose: 20 mg Meropenem 1 gm/ Sodium (Chloride) 100 mls @ 100 mls/hr IVPB Q8 [facility] Last Admin: 01/11/17 20:59 Dose: 100 mls/hr Vancomycin/Sodium Chloride (Vancocin) 1 gm in 200 mls @ 133 mls/hr IVPB Q12H [facility] Stop: 01/15/17 16:31 Last Admin: 01/11/17 16:19 Dose: 133 mls/hr Isoniazid (Niazid) 300 mg PO DAILY [facility] Last Admin: 01/01/17 11:48 Dose: 300 mg Levothyroxine Sodium (Synthroid) 88 mcg PO DAILY@0630 [facility] Last Admin: 01/11/17 06:12 Dose: 88 mcg Ondansetron HCl (Zofran Inj) 4 mg IVP Q6H PRN PRN Reason: Nausea/Vomiting Pyridoxine HCl (Vitamin B6) 25 mg PO DAILY [facility] Last Admin: 01/11/17 09:35 Dose: 25 mg Saccharomyces Boulardii (Florastor) 250 mg PO BID [facility] Last Admin: 01/11/17 17:00 Dose: 250 mg Simethicone (Mylicon Chew Tab) 80 mg PO QID [facility] Last Admin: 01/11/17 21:00 Dose: 80 mg - Labs Labs: 01/11/17 08:43 01/11/17 08:43 Attending/Attestation - Attestation I have personally seen and examined this patient.: Yes I have fully participated in the care of the patient.: Yes I have reviewed all pertinent clinical information, including history, physical exam and plan: Yes Notes (Text): Patient still febrile, coughing, elevated wbc count, discussed with id to add vancomycin and will discuss with pulmonary if candidate for bronchoscopy as main symptoms are resp and positive CT findings of b/l lower lobe consolidation , suspected bronchiatasis.
[2017-01-10] MEDS: Meropenem 1 GM in Sodium Chloride 0.9% 100 ML IVPB SCH ×3 (05:50→22:37)
[2017-01-10] MEDS: Levothyroxine 88 MCG TAB PO SCH (05:50)
[2017-01-10 07:14] LABS: BASO % 0.2 % (0.0-2.0); EOS # 0.2 K/uL (0.0-0.7); EOS % 1.3 % (0.0-4.0); HEMATOCRIT 36.1 % (35.0-51.0); LYMPH # 3.3 K/uL (1.0-4.3); LYMPH % 18.9 % (20.0-40.0); MEAN CELL VOLUME 83.4 fL (80.0-94.0); MEAN CORPUSCULAR HEMOGLOBIN 27.8 pg (27.0-31.0); MEAN CORPUSCULAR HGB CONC 33.3 g/dL (33.0-37.0); MEAN PLATELET VOLUME 7.9 fL (7.2-11.7); MONO # 0.3 K/uL (0.0-0.8); MONO % 1.5 % (0.0-10.0); RED CELL DISTRIBUTION WIDTH 21.2 % (11.5-14.5); WHITE BLOOD COUNT 17.6 K/uL (4.8-10.8)
[2017-01-10 07:26] LABS: ALB/GLOB RATIO 0.5 (1.0-2.1); ALKALINE PHOSPHATASE 95 U/L (38-126); ALT/SGPT 63 U/L (21-72); AST/SGOT 83 U/L (17-59); BILIRUBIN,TOTAL 0.7 mg/dL (0.2-1.3); BLOOD UREA NITROGEN 14 mg/dL (9-20); CALCIUM 7.4 mg/dl (8.6-10.4); CARBON DIOXIDE 25 mmol/L (22-30); CHLORIDE 98 mmol/L (98-107); GFR AFRICAN-AMERICAN > 60; GLUCOSE,RANDOM 97 mg/dL (75-110); MAGNESIUM 1.7 mg/dL (1.6-2.3); PHOSPHOROUS 3.8 mg/dL (2.5-4.5); POTASSIUM 4.2 mmol/L (3.6-5.2); SODIUM 130 mmol/L (132-148); TOTAL PROTEIN 8.2 g/dL (6.3-8.3)
[2017-01-10] MEDS: Saccharomyces Boulardi 250 mg Cap PO SCH ×2 (09:23→17:53)
[2017-01-10] MEDS: Vancomycin 1 gm/NS 200 ml 1 GM/200 ML BAG IVPB SCH (17:54)
--- NOTE | 2017-01-11 02:46 | CP.PCM.PN ---
<Kadi Garzon - Last Filed: 01/11/17 02:44> Subjective - Date & Time of Evaluation Date of Evaluation: 01/11/17 Time of Evaluation: 07:00 - Subjective Subjective: PGY1-Medicine Note-Dr. Conley Service Patient seen and examined at bedside and is in no acute distress. Patient is having sweats and feels very hot. Patient had a 102.7 fever and Tylenol was given. Patient has mild cough which he says is getting better each day and very little phlegm. Patient denies headache, shortness of breath, chest pain, abdominal pain, nausea, vomiting, constipation, or diarrhea. Objective - Vital Signs/Intake and Output Vital Signs (last 24 hours): Temp Pulse Resp BP Pulse Ox 102.7 F H 105 H 20 103/58 L 99 01/11/17 00:00 01/10/17 23:25 01/10/17 23:25 01/10/17 23:25 01/10/17 23:25 Intake and Output: 01/10/17 01/11/17 18:59 06:59 Intake Total 950 780 Balance 950 780 - Medications Medications: Current Medications Acetaminophen (Tylenol 325mg Tab) 650 mg PO Q6 PRN PRN Reason: Fever >100.4 F Last Admin: 01/11/17 00:00 Dose: 650 mg Aspirin (Aspirin Chewable) 81 mg PO DAILY [facility] Last Admin: 01/10/17 09:22 Dose: 81 mg Clopidogrel Bisulfate (Plavix) 75 mg PO DAILY [facility] Last Admin: 01/10/17 09:23 Dose: 75 mg Famotidine (Pepcid) 20 mg PO BID [facility] Last Admin: 01/10/17 17:53 Dose: 20 mg Meropenem 1 gm/ Sodium (Chloride) 100 mls @ 100 mls/hr IVPB Q8 [facility] Last Admin: 01/10/17 22:37 Dose: 100 mls/hr Vancomycin/Sodium Chloride (Vancocin) 1 gm in 200 mls @ 133 mls/hr IVPB Q12H [facility] Stop: 01/15/17 16:31 Last Admin: 01/10/17 17:54 Dose: 133 mls/hr Isoniazid (Niazid) 300 mg PO DAILY [facility] Last Admin: 01/01/17 11:48 Dose: 300 mg Levothyroxine Sodium (Synthroid) 88 mcg PO DAILY@0630 [facility] Last Admin: 01/10/17 05:50 Dose: 88 mcg Ondansetron HCl (Zofran Inj) 4 mg IVP Q6H PRN PRN Reason: Nausea/Vomiting Pyridoxine HCl (Vitamin B6) 25 mg PO DAILY [facility] Last Admin: 01/10/17 09:22 Dose: 25 mg Saccharomyces Boulardii (Florastor) 250 mg PO BID [facility] Last Admin: 01/10/17 17:53 Dose: 250 mg - Labs Labs: 01/10/17 06:55 01/10/17 06:55 - Constitutional Appears: Well, Non-toxic, No Acute Distress - Head Exam Head Exam: ATRAUMATIC, NORMAL INSPECTION, NORMOCEPHALIC - Eye Exam Eye Exam: EOMI, Normal appearance, PERRL - ENT Exam ENT Exam: Mucous Membranes Moist, Normal Exam - Neck Exam Neck Exam: Full ROM, Normal Inspection. absent: Lymphadenopathy - Respiratory Exam Respiratory Exam: Clear to Ausculation Bilateral, NORMAL BREATHING PATTERN - Cardiovascular Exam Cardiovascular Exam: REGULAR RHYTHM, RRR, +S1, +S2. absent: Murmur - GI/Abdominal Exam GI & Abdominal Exam: Soft, Normal Bowel Sounds. absent: Tenderness - Extremities Exam Extremities Exam: Full ROM, Normal Inspection. absent: Pedal Edema - Back Exam Back Exam: NORMAL INSPECTION. absent: rash noted - Neurological Exam Neurological Exam: Alert, Awake, Oriented x3 - Psychiatric Exam Psychiatric exam: Normal Affect, Normal Mood - Skin Skin Exam: Intact, Normal Color, Warm Assessment and Plan - Assessment and Plan (Free Text) Assessment: Leukocytosis Assessment & Plan: WBC increased on 01/10-17.6 01/11 102.7 fever CXR (01/06/17):hypoinflation, bronchovascular crowing, bibasilar atelectasis or infiltrates, probable trace bilateral pleural effusions as per Dr. Carias, patient put on isolation parameters CT/C/A/P (01/09/17): Segmental atelectasis with bronchiectasis bibasally. Scattered areas of thickening in intralobular septum in subpleural lung. DDX include interstitial pneumonia, chronic aspiration, sarcoid, connective tissue diseasee, cryptogenic organizing pneumoina, broncheoalveolar carcinoma. AFB 01/07: PRELIM - negative, 2nd AFB 01/07 - PRELIM - negative, AFB 01/03: PRELIM - negative AFB culture (01/06/17): No acid fast bacilli seen CRP >15 LDH>750 ESR (01/09/17) 101, (01/07/17) ESR 79 Legionella, Strep Pneumo (-), Mycoplasma pending procalcitonin<.05 dopplers of lower and upper extremities: negative except abnormal finding of right cephalic vein -aspirin 81mg daily HIV negative Latent Tuberculosis Assessment & Plan: Pending quantiferon test result - indeterminate Isonazid 300mg PO Daily started B6 25 mg PO daily (01/05) F/u with patient's PMD regarding TB diagnosis: * As per conversation with Dr. Pete Gresham and Dr. Stoll (who was covering for PMD Dr. Bran Klien [phone]) on 01/02/17 and he confirmed that patient was being treated with Isoniazid 300 mg PO 1x/day by Dr. Klein for TB Prophylaxis Securities Analyst Dr. Barrow----> Help appreciated * f/u reccs Imaging: CT chest: No significant interval change in the lungs since the previous exam. Interval slight increase in the size of the pleural effusion. Otherwise no significant interval change 01/01 Chest X-ray: Progressive bibasilar consolidations. Progressive infiltrates in this patient with underlying bibasilar bronchiectasis here is inferred. Inferolateral pleural effusions with pleural thickening -renoted Fever Assessment & Plan: 01/11:102.7 temperature ID consult (Dr. Carias)---> Help appreciated Tmax: 100.6 (01/01/17) Blood culture/ gram stain : (+) for gram positive cocci/ Coagulase negative staphylococcus Flagyl 500mg PO Q8 Zosyn 3.375gm IVPB Q6H changed to Meropenem 1 gm on 01/04 Vanco 1 gm q 12 started on 01/10 Status: Acute Bacteremia Assessment & Plan: ID Consult (Dr. Carias on board)---> Help appreciated Blood culture repeat on 01/02 negative for 72 hours, Urine Culture 01/01 negative Blood culture/ gram stain : (+) for gram positive cocci/ Coagulase negative staphylococcus Flagyl 500mg PO Q8 Meropenem 1 gm IV Q8H Status: Acute Pancreatic Lesion CT C/A/P (01/08/17): 8mm low density lesion in tail of pancreas. Report from CT indicated a 3mm lesion in the pancreatic tail. No old study to compare. Recommend further evaluation with pancreas dedicated MRI w MRCP (see full report ) Dr. Jonas, GI consulted: help appreciated - f/u reccs Lower Extremity Edema Resolved Echo:mild pulmonary hypertension. normal left ventricle, normal EF. Lasix 20 mg once given 01/06 Vertigo Resolved Vestibular Disequilibrium Right Ear Possibly secondary to drug-induced (Minocycline HCl - discontinued) * Zofran 4mg IV Q6H prn --> for associated nausea and vomiting Neurology consult ( Dr. Spears)---> Help appreciated As per neurology: * Hydration * Meclizine PRN * Plavix * Out of bed * No further work up needed 01/02: HIV antibody 1 and 2 screen ordered: Negative RPR: Negative Imaging: ECHO: mild pulmonary hypertension. normal left ventricle, normal EF. CT head: No acute findings Brain MRI: No acute intracranial hemorrhage. Minimal of prolonged T2 signal changes seen in the periventricular white matter which may in part be related to CSF interface artifact however the possibility of some minimal concomitant chronic sequela of small vessel disease not excluded. Mild generalized volume loss. No enhancing masses. No evidence of unusual meningeal enhancement. Carotid doppler : Duplex scan does not suggest hemodynamically significant stenosis of the right and left extracranial carotid arteries Chest X-ray: Progressive bibasilar consolidations. Progressive infiltrates in this patient with underlying bibasilar bronchiectasis here is inferred. Inferolateral pleural effusions with pleural thickening -renoted Diarrhea Assessment & Plan: f/u C. Dif- C dif toxin, stool culture, ova and parasite Flagyl 500 mg PO q8h Status: Resolved Anemia Assessment & Plan: 01/08: 11.4/34.7 Stable H/H on admission: 11.1/34.6 Iron studies: * Iron 75 * TIBC : 207 * % Saturation: 34 * Ferritin: 454 Monitor H/H Status: Acute History of hypothyroidism Assessment & Plan: Continue home medication: * Synthroid 88mcg PO daily * TSH normal Status: Acute Edema of right ankle Assessment & Plan: Ankle X-ray: No fracture or arthritis. Mild circumferential soft tissue swelling bilaterally. Pending b/l Doppler official report Stopped fluids (01/03/17) Status: resolved Prophylactic measure Assessment & Plan: SCDs Ambulating Pepcid 20mg PO BID Florastor 250mg PO BID Status: Acute <Tanika Mccartney Meg - Last Filed: 01/11/17 10:11> Objective - Vital Signs/Intake and Output Vital Signs (last 24 hours): Temp Pulse Resp BP Pulse Ox 98.7 F 82 20 113/52 L 100 01/11/17 04:00 01/11/17 04:00 01/11/17 04:00 01/11/17 04:00 01/11/17 04:00 Intake and Output: 01/11/17 01/11/17 06:59 18:59 Intake Total 780 Balance 780 - Medications Medications: Current Medications Acetaminophen (Tylenol 325mg Tab) 650 mg PO Q6 PRN PRN Reason: Fever >100.4 F Last Admin: 01/11/17 00:00 Dose: 650 mg Aspirin (Aspirin Chewable) 81 mg PO DAILY [facility] Last Admin: 01/11/17 09:35 Dose: 81 mg Clopidogrel Bisulfate (Plavix) 75 mg PO DAILY [facility] Last Admin: 01/11/17 09:35 Dose: 75 mg Famotidine (Pepcid) 20 mg PO BID [facility] Last Admin: 01/11/17 09:35 Dose: 20 mg Meropenem 1 gm/ Sodium (Chloride) 100 mls @ 100 mls/hr IVPB Q8 [facility] Last Admin: 01/11/17 06:12 Dose: 100 mls/hr Vancomycin/Sodium Chloride (Vancocin) 1 gm in 200 mls @ 133 mls/hr IVPB Q12H [facility] Stop: 01/15/17 16:31 Last Admin: 01/11/17 04:29 Dose: 133 mls/hr Isoniazid (Niazid) 300 mg PO DAILY [facility] Last Admin: 01/01/17 11:48 Dose: 300 mg Levothyroxine Sodium (Synthroid) 88 mcg PO DAILY@0630 [facility] Last Admin: 01/11/17 06:12 Dose: 88 mcg Ondansetron HCl (Zofran Inj) 4 mg IVP Q6H PRN PRN Reason: Nausea/Vomiting Pyridoxine HCl (Vitamin B6) 25 mg PO DAILY [facility] Last Admin: 01/11/17 09:35 Dose: 25 mg Saccharomyces Boulardii (Florastor) 250 mg PO BID [facility] Last Admin: 01/11/17 09:35 Dose: 250 mg - Labs Labs: 01/11/17 08:43 01/11/17 08:43 Attending/Attestation - Attestation I have personally seen and examined this patient.: Yes I have fully participated in the care of the patient.: Yes I have reviewed all pertinent clinical information, including history, physical exam and plan: Yes Notes (Text): Patient seen, examined, and case discussed with day-time resident. Patient seen reporting cough which is productive. Patient spiked fever over night at 102.7F. Will recheck blood and urine cultures and C. Dif. Patient reports mild gas pains after eating today but no diarrhea. Patient reports he is feeling bad and has mild swelling over the right hand. Will order right hand xray and dose of Lasix to reduce swelling. White count is downtrending. Pending GI/Pulm recommendations Assessment/Plan 1) Pneumonia with Bronchiectasis * Pulmonary (Dr. Barrow)-->f/u recommendations * CT Chest/Abdomen/Pelvis (01/08/17): segmental atelectais. small hiatal hernia, consoliation with bronchiectasis bibasally. Scattered areas of thicken of the intralobular septa in the subpleural lung. Differential diagnostic considerations desequamative interstitial pneumonia, chronic aspiration, sarcoid , connective tissue disase, cryptogenic organizing pneymonia, bronchoalveolar carcinoma. No previous studies are available for direct comparison. * Dr. Carias (infectious disease) on board-->persistent white count, placed back on isolation, collection of AFB * My colleague spoke with Dr. Stoll (who was covering for PMD Dr. Bran Klein [phone]) on 01/02/17 and he confirmed that patient was being treated with Isoniazid 300 mg PO 1x/day by Dr. Klein for TB Prophylaxis * Negative Legionella; Mycobacterial Culture (01/06/17): f/u; Mycobacterial Culture (01/07/17): f/u * Venous doppler (01/08/17): acute thrombosis of right cephalic vein and no evidence of vein thrombosis with left upper extremity w excellent venous flow. * Venous doppler (01/08/17): No DVT nor SVT bilateral lower extremities * Meropenem 1 gram IV Q 8hours (active since 01/04/17) * Flagyl 500mg PO Q 8 hours (active since 01/05/17) * Florastor 250mg PO bid 2) Superficial Thrombophlebitis * Venous doppler (01/08/17): acute thrombosis of right cephalic vein and no evidence of vein thrombosis with left upper extremity w excellent venous flow. * Venous doppler (01/08/17): No DVT nor SVT bilateral lower extremities * Aspirin 81mg PO daily 3) Leukocytosis * Monitor white count * Ordered for ESR, CRP, LDH-->all elevated (79, >15.00, 750); procalcitonin low * CT Chest/Abdomen/Pelvis (01/08/17): segmental atelectais. small hiatal hernia, consoliation with bronchiectasis bibasally. Scattered areas of thicken of the intralobular septa in the subpleural lung. Differential diagnostic considerations desequamative interstitial pneumonia, chronic aspiration, sarcoid , connective tissue disase, cryptogenic organizing pneymonia, bronchoalveolar carcinoma. No previous studies are available for direct comparison. * Up * Venous doppler (01/08/17): acute thrombosis of right cephalic vein and no evidence of vein thrombosis with left upper extremity w excellent venous flow. * Venous doppler (01/08/17): No DVT nor SVT bilateral lower extremities * Aspirin 81mg PO daily * Negative C. dif; No ova and parasite * Meropenem 1 gram IV Q 8hours (active since 01/04/17) * Flagyl 500mg PO Q 8 hours (active since 01/05/17) * Florastor 250mg PO bid * As per Blood Culture 01/01/17 (1/2) that showed S. aureus and Coag Neg Strep: sensitive to levofloxcin and Vancomycin * Blood cultures (01/02/17): no growth after 5 days X2 4). Vestibular Disequilibrium Right Ear * Neurology (Dr. Lee) o board-->help appreciated-->started on Plavix 75mg Po daily * Possible secondary to drug side effect * CT Head showed NO acute changes * MRI Brain showed NO hemorrhages/mass * Carotid Doppler showed NO significant stenosis 5). TB Prophylaxis * My colleague spoke with Dr. Stoll (who was covering for PMD Dr. Bran Klein [phone]) on 01/02/17 and he confirmed that patient was being treated with Isoniazid 300 mg PO 1x/day by Dr. Klein for TB Prophylaxis * My colleague spoke with Securities Analyst Dr. Mckeon and he confirmed that patient was being treated prophylactically with Isoniazid-->not on consult * Dr. Carias (infectious disease) on board-->persistent white count, placed back on isolation, collection of AFB * Negative Legionella * Mycobacterial Culture (01/06/17): no acid fast bacilli * Mycobacterial Culture (01/07/17): no acid fast bacilli * Mycobacterial Culture (01/07/17): no acid fast bacilli 6). Anemia secondary to ? * Iron studies were unremarkable * F/U with Hematology as an outpatient for further workup 7). Bacteremia * ID Dr. Carias help is greatly appreciated * As per Blood Culture 01/01/17 (06/23) that showed S. aureus and Coag Neg Strep: sensitive to levofloxcin and Vancomycin * CT Chest/Abdomen/Pelvis (01/08/17): segmental atelectais. small hiatal hernia, consoliation with bronchiectasis bibasally. Scattered areas of thicken of the intralobular septa in the subpleural lung. Differential diagnostic considerations desequamative interstitial pneumonia, chronic aspiration, sarcoid , connective tissue disase, cryptogenic organizing pneymonia, bronchoalveolar carcinoma. No previous studies are available for direct comparison. * Blood cultures (01/02/17): no growth after 5 days X2 * CT Chest showed no interval change when compared to 09/11/16: airspace opacities prominent bilateral lower lobes with associated bronchiectasis with slight increase in pleural effusion * Chest X Ray showed progressive bibasilar consolidation, progressive infiltrates with underlying bibasilar bronchiectasis with inferolateral pleural effusion * F/U Sputum Culture 8). Hx Hypothyroidism * Levothyroxine 88 mcg PO 1x/day 9). Possible ALL Reaction * No redness on exam noted since I took over this week * On night of 01/01/17 patient apparently had redness of face and neck and upper chest and therefore Solumedrol, Pepcid, and Benadryl were given.The Solumedrol may have contributed initially. However white count persistently elevated 10). Hx Ankle Edema * Right Ankle X Ray was unremarkable 11.). Hypokalemia * Monitor and replete 12). Prophylactic Measures * Pepcid 20 mg PO 2x/day * Zofran 4 mg IV Q6H PRN * Ambulatory
[2017-01-11] MEDS: Vancomycin 1 gm/NS 200 ml 1 GM/200 ML BAG IVPB SCH ×2 (04:29→16:19)
[2017-01-11] MEDS: Meropenem 1 GM in Sodium Chloride 0.9% 100 ML IVPB SCH ×3 (06:12→20:59)
[2017-01-11] MEDS: Levothyroxine 88 MCG TAB PO SCH (06:12)
[2017-01-11 08:49] LABS: BASO % 0.1 % (0.0-2.0); EOS # 0.5 K/uL (0.0-0.7); EOS % 3.6 % (0.0-4.0); HEMATOCRIT 33.5 % (35.0-51.0); LYMPH # 1.5 K/uL (1.0-4.3); MEAN CELL VOLUME 83.4 fL (80.0-94.0); MEAN CORPUSCULAR HEMOGLOBIN 27.5 pg (27.0-31.0); MEAN PLATELET VOLUME 8.3 fL (7.2-11.7); MONO # 0.2 K/uL (0.0-0.8); MONO % 1.7 % (0.0-10.0); NRBC % 0.1 % (0.0-2.0); RED CELL DISTRIBUTION WIDTH 20.3 % (11.5-14.5)
[2017-01-11 08:58] LABS: CHLORIDE 100 mmol/L (98-107); POTASSIUM 4.1 mmol/L (3.6-5.2); SODIUM 133 mmol/L (132-148)
[2017-01-11 09:00] LABS: ALB/GLOB RATIO 0.5 (1.0-2.1); AST/SGOT 71 U/L (17-59); BILIRUBIN,TOTAL 0.6 mg/dL (0.2-1.3); CARBON DIOXIDE 26 mmol/L (22-30); GFR AFRICAN-AMERICAN > 60; TOTAL PROTEIN 7.7 g/dL (6.3-8.3)
[2017-01-11 09:01] LABS: ALKALINE PHOSPHATASE 77 U/L (38-126); ALT/SGPT 57 U/L (21-72); BLOOD UREA NITROGEN 14 mg/dL (9-20); CALCIUM 7.1 mg/dl (8.6-10.4); GLUCOSE,RANDOM 75 mg/dL (75-110); MAGNESIUM 1.6 mg/dL (1.6-2.3); PHOSPHOROUS 4.2 mg/dL (2.5-4.5)
[2017-01-11] MEDS: Saccharomyces Boulardi 250 mg Cap PO SCH ×2 (09:35→17:00)
[2017-01-11] MEDS: Simethicone 80 mg Chewtab PO SCH ×3 (14:10→21:00)
--- NOTE | 2017-01-11 16:11 | RAD ---
PROCEDURE: Right Hand Radiographs. HISTORY: hand swelling COMPARISON: None. FINDINGS: BONES: No evidence of acute displaced fracture nor dislocation. The osseous structures appear grossly intact. No cortical destructive changes are identified. JOINTS: Joint spaces appear relatively preserved. No significant osteoarthritis. SOFT TISSUES: No significant soft tissue swelling is cyst seen on this exam. No evidence of subcutaneous air or radiopaque foreign bodies. OTHER FINDINGS: None. IMPRESSION: No acute fracture seen.
[2017-01-11 18:10] LABS: RBC URINE 2 /hpf (0-3); URINE BACTERIA RARE (<OCC); URINE BILIRUBIN NEGATIVE (NEGATIVE); URINE BLOOD NEGATIVE (NEGATIVE); URINE COLOR Yellow (YELLOW); URINE GLUCOSE (UA) NORMAL (Normal); URINE KETONE TRACE mg/dL (NEGATIVE); URINE LEUKOCYTE ESTERASE NEG Leu/uL (Negative); URINE PROTEIN 1+ mg/dL (NEGATIVE); URINE UROBILINOGEN NORMAL mg/dL (0.2-1.0); WBC URINE 1 /hpf (0-5)
[2017-01-12] MEDS: Vancomycin 1 gm/NS 200 ml 1 GM/200 ML BAG IVPB SCH ×2 (03:37→16:21)
[2017-01-12] MEDS: Meropenem 1 GM in Sodium Chloride 0.9% 100 ML IVPB SCH ×3 (05:41→21:54)
[2017-01-12] MEDS: Levothyroxine 88 MCG TAB PO SCH (05:41)
[2017-01-12 07:43] LABS: CHLORIDE 100 mmol/L (98-107); POTASSIUM 3.5 mmol/L (3.6-5.2); SODIUM 133 mmol/L (132-148)
[2017-01-12 07:45] LABS: ALB/GLOB RATIO 0.5 (1.0-2.1); ALKALINE PHOSPHATASE 83 U/L (38-126); AST/SGOT 56 U/L (17-59); BILIRUBIN,TOTAL 0.4 mg/dL (0.2-1.3); CARBON DIOXIDE 27 mmol/L (22-30); GFR AFRICAN-AMERICAN > 60
[2017-01-12 07:46] LABS: ALT/SGPT 58 U/L (21-72); BLOOD UREA NITROGEN 16 mg/dL (9-20); CALCIUM 6.8 mg/dl (8.6-10.4); GLUCOSE,RANDOM 74 mg/dL (75-110); MAGNESIUM 1.5 mg/dL (1.6-2.3); PHOSPHOROUS 3.6 mg/dL (2.5-4.5)
[2017-01-12 07:54] LABS: BASO % 0.1 % (0.0-2.0); EOS # 0.8 K/uL (0.0-0.7); EOS % 7.6 % (0.0-4.0); HEMATOCRIT 32.1 % (35.0-51.0); LYMPH # 1.3 K/uL (1.0-4.3); LYMPH % 13.3 % (20.0-40.0); MEAN CELL VOLUME 83.4 fL (80.0-94.0); MEAN CORPUSCULAR HEMOGLOBIN 27.7 pg (27.0-31.0); MEAN CORPUSCULAR HGB CONC 33.2 g/dL (33.0-37.0); MEAN PLATELET VOLUME 8.4 fL (7.2-11.7); MONO # 0.2 K/uL (0.0-0.8); MONO % 2.3 % (0.0-10.0); NRBC % 0.1 % (0.0-2.0); RED CELL DISTRIBUTION WIDTH 20.2 % (11.5-14.5); WHITE BLOOD COUNT 9.9 K/uL (4.8-10.8)
--- NOTE | 2017-01-12 07:57 | CP.PCM.CON ---
History of Present Illness - History of Present Illness History of Present Illness: admitted with nausea and vomiting with subsequent aspiration pna h/o + ppd started in inh 2 weeks ago sputum neg for tb x 4 clinically improved with abx Review of Systems - Respiratory Respiratory: Cough, Excessive Mucous Production Past Patient History - Infectious Disease Hx of Infectious Diseases: None - Past Medical History & Family History Past Medical History?: Yes - Past Social History Smoking Status: Never Smoked - CARDIAC Hx Cardiac Disorders: No - PULMONARY Hx Pneumonia: Yes - NEUROLOGICAL Hx Neurological Disorder: No - HEENT Hx HEENT Problems: No - RENAL Hx Chronic Kidney Disease: No - ENDOCRINE/METABOLIC Hx Hypothyroidism: Yes - HEMATOLOGICAL/ONCOLOGICAL Hx Blood Disorders: No - INTEGUMENTARY Hx Dermatological Problems: No Hx Eczema: Yes - MUSCULOSKELETAL/RHEUMATOLOGICAL Hx Falls: No - GASTROINTESTINAL Hx Gastrointestinal Disorders: No - GENITOURINARY/GYNECOLOGICAL Hx Genitourinary Disorders: No - PSYCHIATRIC Hx Substance Use: No - SURGICAL HISTORY Hx Surgeries: No - ANESTHESIA Hx Anesthesia: No Meds Allergies/Adverse Reactions: Allergies Allergy/AdvReac Type Severity Reaction Status Date / Time No Known Allergies Allergy Verified 01/01/17 05:53 - Medications Medications: Current Medications Acetaminophen (Tylenol 325mg Tab) 650 mg PO Q6 PRN PRN Reason: Fever >100.4 F Last Admin: 01/11/17 21:03 Dose: 650 mg Aspirin (Aspirin Chewable) 81 mg PO DAILY [facility] Last Admin: 01/11/17 09:35 Dose: 81 mg Clopidogrel Bisulfate (Plavix) 75 mg PO DAILY [facility] Last Admin: 01/11/17 09:35 Dose: 75 mg Famotidine (Pepcid) 20 mg PO BID [facility] Last Admin: 01/11/17 17:01 Dose: 20 mg Meropenem 1 gm/ Sodium (Chloride) 100 mls @ 100 mls/hr IVPB Q8 [facility] Last Admin: 01/12/17 05:41 Dose: 100 mls/hr Vancomycin/Sodium Chloride (Vancocin) 1 gm in 200 mls @ 133 mls/hr IVPB Q12H [facility] Stop: 01/15/17 16:31 Last Admin: 01/12/17 03:37 Dose: 133 mls/hr Isoniazid (Niazid) 300 mg PO DAILY [facility] Last Admin: 01/01/17 11:48 Dose: 300 mg Levothyroxine Sodium (Synthroid) 88 mcg PO DAILY@0630 [facility] Last Admin: 01/12/17 05:41 Dose: 88 mcg Ondansetron HCl (Zofran Inj) 4 mg IVP Q6H PRN PRN Reason: Nausea/Vomiting Pyridoxine HCl (Vitamin B6) 25 mg PO DAILY [facility] Last Admin: 01/11/17 09:35 Dose: 25 mg Saccharomyces Boulardii (Florastor) 250 mg PO BID [facility] Last Admin: 01/11/17 17:00 Dose: 250 mg Simethicone (Mylicon Chew Tab) 80 mg PO QID [facility] Last Admin: 01/11/17 21:00 Dose: 80 mg Physical Exam - Constitutional Appears: No Acute Distress - Head Exam Head Exam: ATRAUMATIC, NORMOCEPHALIC - Eye Exam Eye Exam: Normal appearance - ENT Exam ENT Exam: Mucous Membranes Moist - Respiratory Exam Respiratory Exam: Decreased Breath Sounds, Rales - Cardiovascular Exam Cardiovascular Exam: +S1, +S2 - GI/Abdominal Exam GI & Abdominal Exam: Normal Bowel Sounds - Rectal Exam Rectal Exam: Deferred - Neurological Exam Neurological exam: Alert, Oriented x3 - Psychiatric Exam Psychiatric exam: Normal Affect, Normal Mood - Skin Skin Exam: Intact Results - Vital Signs Recent Vital Signs: Last Vital Signs Temp 98.7 F 01/12/17 03:00 Pulse 73 01/12/17 04:00 Resp 20 01/12/17 03:00 BP 104/57 L 01/12/17 03:00 Pulse Ox 98 01/12/17 03:00 - Labs Result Diagrams: 01/11/17 08:43 01/12/17 07:05 Labs: Laboratory Results - last 24 hr 01/07/17 01/11/17 01/11/17 14:14 08:43 08:43 WBC 14.0 H RBC 4.02 L Hgb 11.1 L Hct 33.5 L MCV 83.4 MCH 27.5 MCHC 33.0 RDW 20.3 H Plt Count 328 MPV 8.3 Neut % (Auto) 83.6 H Lymph % (Auto) 11.0 L Josephine % (Auto) 1.7 Eos % (Auto) 3.6 Baso % (Auto) 0.1 Neut # 11.7 H Lymph # 1.5 Josephine # 0.2 Eos # 0.5 Baso # 0.0 Sodium 133 Potassium 4.1 Chloride 100 Carbon Dioxide 26 Anion Gap 11 BUN 14 Creatinine 0.5 L Est GFR ( Amer) > 60 Est GFR (Non-Af Amer) > 60 Random Glucose 75 Calcium 7.1 L Phosphorus 4.2 Magnesium 1.6 Total Bilirubin 0.6 AST 71 H ALT 57 Alkaline Phosphatase 77 Total Protein 7.7 Albumin 2.5 L Globulin 5.2 H Albumin/Globulin Ratio 0.5 L Urine Color Urine Clarity Urine pH Ur Specific [place] Urine Protein Urine Glucose (UA) Urine Ketones Urine Blood Urine Nitrate Urine Bilirubin Urine Urobilinogen Ur Leukocyte Esterase Urine WBC (Auto) Urine RBC (Auto) Ur Squamous Epith Cells Urine Bacteria C. difficile Ag & Toxin Mycoplasma pneumon IgG 2.25 H Mycoplasma pneumon IgM 350 01/11/17 01/11/17 01/12/17 17:15 17:44 07:05 WBC RBC Hgb Hct MCV MCH MCHC RDW Plt Count MPV Neut % (Auto) Lymph % (Auto) Josephine % (Auto) Eos % (Auto) Baso % (Auto) Neut # Lymph # Josephine # Eos # Baso # Sodium 133 Potassium 3.5 L Chloride 100 Carbon Dioxide 27 Anion Gap 10 BUN 16 Creatinine 0.6 L Est GFR ( Amer) > 60 Est GFR (Non-Af Amer) > 60 Random Glucose 74 L Calcium 6.8 L Phosphorus 3.6 Magnesium 1.5 L Total Bilirubin 0.4 AST 56 ALT 58 Alkaline Phosphatase 83 Total Protein 7.0 Albumin 2.3 L Globulin 4.7 H Albumin/Globulin Ratio 0.5 L Urine Color Yellow Urine Clarity Clear Urine pH 5.0 Ur Specific [place] 1.030 Urine Protein 1+ H Urine Glucose (UA) Normal Urine Ketones Trace Urine Blood Negative Urine Nitrate Negative Urine Bilirubin Negative Urine Urobilinogen Normal Ur Leukocyte Esterase Neg Urine WBC (Auto) 1 Urine RBC (Auto) 2 Ur Squamous Epith Cells 1 Urine Bacteria Rare C. difficile Ag & Toxin Negative Mycoplasma pneumon IgG Mycoplasma pneumon IgM Assessment & Plan (1) Aspiration into lower respiratory tract Status: Acute Comment: due to nausea and vomiting (2) PPD+ (purified protein derivative positive) Status: Acute Comment: continue inh prophylaxis for 6 months. sputum afb neg smears. doubt active tb
[2017-01-12] MEDS: Saccharomyces Boulardi 250 mg Cap PO SCH ×2 (09:24→18:32)
[2017-01-12] MEDS: Simethicone 80 mg Chewtab PO SCH ×4 (09:25→21:55)
[2017-01-12] MEDS: Albuterol-Ipratrop 3 mg / 0.5 (3 ml) UD INH SCH ×3 (09:55→19:14)
[2017-01-12] MEDS ORDERED: Magnesium Sulfate 1 gm in D5W 1 GM/100 ML BAG IVPB ONE (10:14)
[2017-01-12] MEDS ORDERED: Potassium Chloride 20 mEq ER Tab PO ONE (11:15)
[2017-01-12 15:42] LABS: CA 19-9 10.3 U/mL (0-37)
--- NOTE | 2017-01-12 15:54 | CP.PCM.PN ---
<Kadi Garzon - Last Filed: 01/12/17 18:50> Subjective - Date & Time of Evaluation Date of Evaluation: 01/12/17 Time of Evaluation: 07:30 - Subjective Subjective: PGY1- Medicine Note- Dr. Mccartney's Service Patient seen and examined at community hospital and in no acute distress. Patient says his right hand is feeling much better today and he is able to have more range of motion. Patient spiked a fever again of 102 at 7:35 am. Patient denies headache , shortness of breath, palpations, heart pain. Objective - Vital Signs/Intake and Output Vital Signs (last 24 hours): Temp Pulse Resp BP Pulse Ox 98.9 F 92 H 20 105/60 98 01/12/17 10:24 01/12/17 09:56 01/12/17 07:35 01/12/17 07:35 01/12/17 07:35 - Medications Medications: Current Medications Acetaminophen (Tylenol 325mg Tab) 650 mg PO Q6 PRN PRN Reason: Fever >100.4 F Last Admin: 01/12/17 09:24 Dose: 650 mg Albuterol/Ipratropium (Duoneb 3 Mg/0.5 Mg (3 Ml) Ud) 3 ml INH RQ6 [facility] Last Admin: 01/12/17 14:07 Dose: 3 ml Aspirin (Aspirin Chewable) 81 mg PO DAILY [facility] Last Admin: 01/12/17 09:24 Dose: 81 mg Clopidogrel Bisulfate (Plavix) 75 mg PO DAILY [facility] Last Admin: 01/12/17 09:24 Dose: 75 mg Famotidine (Pepcid) 20 mg PO BID [facility] Last Admin: 01/12/17 09:24 Dose: 20 mg Meropenem 1 gm/ Sodium (Chloride) 100 mls @ 100 mls/hr IVPB Q8 [facility] Last Admin: 01/12/17 13:25 Dose: 100 mls/hr Vancomycin/Sodium Chloride (Vancocin) 1 gm in 200 mls @ 133 mls/hr IVPB Q12H [facility] Stop: 01/15/17 16:31 Last Admin: 01/12/17 03:37 Dose: 133 mls/hr Isoniazid (Niazid) 300 mg PO DAILY [facility] Last Admin: 01/01/17 11:48 Dose: 300 mg Levothyroxine Sodium (Synthroid) 88 mcg PO DAILY@0630 [facility] Last Admin: 01/12/17 05:41 Dose: 88 mcg Ondansetron HCl (Zofran Inj) 4 mg IVP Q6H PRN PRN Reason: Nausea/Vomiting Pyridoxine HCl (Vitamin B6) 25 mg PO DAILY [facility] Last Admin: 01/12/17 09:25 Dose: 25 mg Saccharomyces Boulardii (Florastor) 250 mg PO BID [facility] Last Admin: 01/12/17 09:24 Dose: 250 mg Simethicone (Mylicon Chew Tab) 80 mg PO QID [facility] Last Admin: 01/12/17 13:25 Dose: 80 mg - Labs Labs: 01/12/17 07:05 01/12/17 07:05 - Constitutional Appears: Well, Non-toxic, No Acute Distress - Head Exam Head Exam: ATRAUMATIC, NORMAL INSPECTION, NORMOCEPHALIC - Eye Exam Eye Exam: EOMI, Normal appearance, PERRL - ENT Exam ENT Exam: Mucous Membranes Moist, Normal Exam - Neck Exam Neck Exam: Full ROM, Normal Inspection. absent: Lymphadenopathy - Respiratory Exam Respiratory Exam: Clear to Ausculation Bilateral, NORMAL BREATHING PATTERN - Cardiovascular Exam Cardiovascular Exam: REGULAR RHYTHM, +S1, +S2. absent: Murmur - GI/Abdominal Exam GI & Abdominal Exam: Soft, Normal Bowel Sounds. absent: Tenderness - Extremities Exam Extremities Exam: Full ROM, Normal Inspection Additional comments: erythema and flaking skin on legs decreasing. edema in legs resolving. - Back Exam Back Exam: NORMAL INSPECTION. absent: rash noted - Neurological Exam Neurological Exam: Alert, Awake, Oriented x3 - Psychiatric Exam Psychiatric exam: Normal Affect, Normal Mood - Skin Skin Exam: Intact, Normal Color, Warm Assessment and Plan - Assessment and Plan (Free Text) Assessment: Leukocytosis Assessment & Plan: WBC downtrending 9.9 on 01/12 Pt afebrile this AM CXR (01/06/17):hypoinflation, bronchovascular crowing, bibasilar atelectasis or infiltrates, probable trace bilateral pleural effusions as per Dr. Carias, patient put on isolation parameters CT/C/A/P (01/09/17): Segmental atelectasis with bronchiectasis bibasally. Scattered areas of thickening in intralobular septum in subpleural lung. DDX include interstitial pneumonia, chronic aspiration, sarcoid, connective tissue disease, cryptogenic organizing pneumoina, broncheoalveolar carcinoma. AFB 01/07: PRELIM - negative, 2nd AFB 01/07 - PRELIM - negative, AFB 01/03: PRELIM - negative AFB culture (01/06/17): No acid fast bacilli seen CRP >15 LDH>750 ESR (01/09/17) 101, (01/07/17) ESR 79 Legionella, Strep Pneumo (-), Mycoplasma pending procalcitonin<.05 dopplers of lower and upper extremities: negative except abnormal finding of right cephalic vein -aspirin 81mg daily HIV negative 01/11: blood and urine cultures no growth for 24 hours Latent Tuberculosis Assessment & Plan: Pending quantiferon test result - indeterminate AFB (-) x 4 Isonazid 300mg PO Daily started B6 25 mg PO daily (01/05) F/u with patient's PMD regarding TB diagnosis: * As per conversation with Dr. Pete Gresham and Dr. Stoll (who was covering for PMD Dr. Bran Klein [phone]) on 01/02/17 and he confirmed that patient was being treated with Isoniazid 300 mg PO 1x/day by Dr. Klein for TB Prophylaxis [employer] Worker Dr. Barrow----> Help appreciated * f/u reccs Imaging: CT chest: No significant interval change in the lungs since the previous exam. Interval slight increase in the size of the pleural effusion. Otherwise no significant interval change 01/01 Chest X-ray: Progressive bibasilar consolidations. Progressive infiltrates in this patient with underlying bibasilar bronchiectasis here is inferred. Inferolateral pleural effusions with pleural thickening Fever Assessment & Plan: secondary to TB vs Aspiration pneumonia 01/12: fever of 102 at 7:35 f/u speech and swallow aspiration precautions 01/09: Afebrile overnight ID consult (Dr. Carias), help appreciated Tmax: 100.6 (01/01/17) Blood culture/ gram stain : (+) for gram positive cocci/ Coagulase negative staphylococcus Status: Acute Bacteremia Assessment & Plan: ID Consult (Dr. Carias on board)---> Help appreciated, Dr. Carias suggests continuing the Vanco 1 gm q 12 and Meropenem 1 gm q8h. Blood culture repeat on 01/02 negative for 72 hours, Urine Culture 01/01 negative Blood culture/ gram stain : (+) for gram positive cocci/ Coagulase negative staphylococcus Status: Acute Pancreatic Lesion CT C/A/P (01/08/17): 8mm low density lesion in tail of pancreas. Report from CT indicated a 3mm lesion in the pancreatic tail. No old study to compare. Recommend further evaluation with pancreas dedicated MRI w MRCP (see full report ) Dr. Jonas, GI consulted: help appreciated Lower Extremity Edema Resolved Echo:mild pulmonary hypertension. normal left ventricle, normal EF. Lasix 20 mg once given 01/06 Vertigo Resolved Vestibular Disequilibrium Right Ear Possibly secondary to drug-induced (Minocycline HCl - discontinued) * Zofran 4mg IV Q6H prn --> for associated nausea and vomiting Neurology consult ( Dr. Spears)---> Help appreciated As per neurology: * Hydration * Meclizine PRN * Plavix * Out of bed * No further work up needed 01/02: HIV antibody 1 and 2 screen ordered: Negative RPR: Negative Imaging: ECHO: mild pulmonary hypertension. normal left ventricle, normal EF. CT head: No acute findings Brain MRI: No acute intracranial hemorrhage. Minimal of prolonged T2 signal changes seen in the periventricular white matter which may in part be related to CSF interface artifact however the possibility of some minimal concomitant chronic sequela of small vessel disease not excluded. Mild generalized volume loss. No enhancing masses. No evidence of unusual meningeal enhancement. Carotid doppler : Duplex scan does not suggest hemodynamically significant stenosis of the right and left extracranial carotid arteries Chest X-ray: Progressive bibasilar consolidations. Progressive infiltrates in this patient with underlying bibasilar bronchiectasis here is inferred. Inferolateral pleural effusions with pleural thickening -renoted Diarrhea Assessment & Plan: C dif toxin, stool culture, ova and parasite: all negative Flagyl stopped Status: Resolved Anemia Assessment & Plan: 01/12: 10.7/ 32.1 Stable H/H on admission: 11.1/34.6 Iron studies: * Iron 75 * TIBC : 207 * % Saturation: 34 * Ferritin: 454 Monitor H/H Status: Acute History of hypothyroidism Assessment & Plan: Continue home medication: * Synthroid 88mcg PO daily * TSH normal Status: Acute Edema of right ankle Assessment & Plan: Ankle X-ray: No fracture or arthritis. Mild circumferential soft tissue swelling bilaterally. Pending b/l Doppler official report Stopped fluids (01/03/17) Status: resolved Prophylactic measure Assessment & Plan: SCDs Ambulating Pepcid 20mg PO BID Florastor 250mg PO BID Status: Acute <Tanika Mccartney Meg - Last Filed: 01/15/17 13:04> Objective - Vital Signs/Intake and Output Vital Signs (last 24 hours): Temp Pulse Resp BP Pulse Ox 98.1 F 73 18 99/50 L 99 01/15/17 09:15 01/15/17 09:15 01/15/17 09:15 01/15/17 09:15 01/15/17 09:15 Intake and Output: 01/15/17 01/15/17 06:59 18:59 Intake Total 560 Balance 560 - Medications Medications: Current Medications Acetaminophen (Tylenol 325mg Tab) 650 mg PO Q6 PRN PRN Reason: Fever >100.4 F Last Admin: 01/14/17 18:55 Dose: 650 mg Albuterol/Ipratropium (Duoneb 3 Mg/0.5 Mg (3 Ml) Ud) 3 ml INH RQ6 [facility] Last Admin: 01/15/17 07:23 Dose: 3 ml Aspirin (Aspirin Chewable) 81 mg PO DAILY [facility] Last Admin: 01/15/17 09:32 Dose: 81 mg Clopidogrel Bisulfate (Plavix) 75 mg PO DAILY [facility] Last Admin: 01/15/17 09:32 Dose: 75 mg Diphenhydramine HCl (Benadryl) 25 mg PO Q8 [facility] Stop: 01/15/17 15:00 Last Admin: 01/15/17 05:28 Dose: 25 mg Docusate Sodium (Colace) 100 mg PO TID [facility] Last Admin: 01/15/17 09:32 Dose: 100 mg Famotidine (Pepcid) 20 mg PO BID [facility] Last Admin: 01/15/17 09:32 Dose: 20 mg Isoniazid (Niazid) 300 mg PO DAILY [facility] Last Admin: 01/01/17 11:48 Dose: 300 mg Levothyroxine Sodium (Synthroid) 88 mcg PO DAILY@0630 [facility] Last Admin: 01/15/17 05:30 Dose: 88 mcg Ondansetron HCl (Zofran Inj) 4 mg IVP Q6H PRN PRN Reason: Nausea/Vomiting Pyridoxine HCl (Vitamin B6) 25 mg PO DAILY [facility] Last Admin: 01/15/17 09:32 Dose: 25 mg Saccharomyces Boulardii (Florastor) 250 mg PO BID [facility] Last Admin: 01/15/17 09:32 Dose: 250 mg Simethicone (Mylicon Chew Tab) 80 mg PO QID [facility] Last Admin: 01/15/17 09:32 Dose: 80 mg - Labs Labs: 01/15/17 06:36 01/15/17 06:36 Attending/Attestation - Attestation I have personally seen and examined this patient.: Yes I have fully participated in the care of the patient.: Yes I have reviewed all pertinent clinical information, including history, physical exam and plan: Yes Notes (Text): This is late computer entry for 01/12/17. Patient seen, examined and case discussed with day-time resident. Appreciate recommendations by pulmonary, recommend TB prophylaxis for 6 months and likely aspiration pneumonia. Patient's white count has normalized. Patient spiked a fever overnight. F/u repeat cultures ordered over the weekend to see if new findings. C.dif negative. F/U GI regarding pancreatic tail abnormality noted on CT Abdomen/Pelvis Hand xray shows no acute fracture and swelling subsided. 1) Pneumonia with Bronchiectasis * Pulmonary (Dr. Barrow)-->help appreicated * CT Chest/Abdomen/Pelvis (01/08/17): segmental atelectais. small hiatal hernia, consoliation with bronchiectasis bibasally. Scattered areas of thicken of the intralobular septa in the subpleural lung. Differential diagnostic considerations desequamative interstitial pneumonia, chronic aspiration, sarcoid , connective tissue disase, cryptogenic organizing pneymonia, bronchoalveolar carcinoma. No previous studies are available for direct comparison. * Dr. Carias (infectious disease) on board-->persistent white count, placed back on isolation, collection of AFB * My colleague spoke with Dr. Stoll (who was covering for PMD Dr. Bran Klein [phone]) on 01/02/17 and he confirmed that patient was being treated with Isoniazid 300 mg PO 1x/day by Dr. Klein for TB Prophylaxis * Negative Legionella * Mycobacterial Culture (01/06/17): no acid fast bacilli * Mycobacterial Culture (01/07/17): no acid fast bacilli * Mycobacterial Culture (01/07/17): no acid fast bacilli * Venous doppler (01/08/17): acute thrombosis of right cephalic vein and no evidence of vein thrombosis with left upper extremity w excellent venous flow. * Venous doppler (01/08/17): No DVT nor SVT bilateral lower extremities * Meropenem 1 gram IV Q 8hours (active since 01/04/17) * Flagyl 500mg PO Q 8 hours (active since 01/05/17) * Florastor 250mg PO bid 2) Superficial Thrombophlebitis * Venous doppler (01/08/17): acute thrombosis of right cephalic vein and no evidence of vein thrombosis with left upper extremity w excellent venous flow. * Venous doppler (01/08/17): No DVT nor SVT bilateral lower extremities * Aspirin 81mg PO daily 3) Leukocytosis * Monitor white count-->normalized * Ordered for ESR, CRP, LDH-->all elevated (79, >15.00, 750); procalcitonin low * CT Chest/Abdomen/Pelvis (01/08/17): segmental atelectais. small hiatal hernia, consoliation with bronchiectasis bibasally. Scattered areas of thicken of the intralobular septa in the subpleural lung. Differential diagnostic considerations desequamative interstitial pneumonia, chronic aspiration, sarcoid , connective tissue disase, cryptogenic organizing pneymonia, bronchoalveolar carcinoma. No previous studies are available for direct comparison. * Venous doppler (01/08/17): acute thrombosis of right cephalic vein and no evidence of vein thrombosis with left upper extremity w excellent venous flow--> Aspirin 81mg PO daily * Venous doppler (01/08/17): No DVT nor SVT bilateral lower extremities * Negative C. dif; No ova and parasite * Meropenem 1 gram IV Q 8hours (active since 01/04/17) * Flagyl 500mg PO Q 8 hours (active since 01/05/17) * Florastor 250mg PO bid * As per Blood Culture 01/01/17 (1/2) that showed S. aureus and Coag Neg Strep: sensitive to levofloxcin and Vancomycin * Blood cultures (01/02/17): no growth after 5 days X2 * Mycobacterial Culture (01/06/17): no acid fast bacilli * Mycobacterial Culture (01/07/17): no acid fast bacilli * Mycobacterial Culture (01/07/17): no acid fast bacilli 4). Vestibular Disequilibrium Right Ear * Neurology (Dr. Lee) o board-->help appreciated-->started on Plavix 75mg Po daily * Possible secondary to drug side effect (minocycline d/c on admission) * CT Head showed NO acute changes * MRI Brain showed NO hemorrhages/mass * Carotid Doppler showed NO significant stenosis 5). TB Prophylaxis * My colleague spoke with Dr. Stoll (who was covering for PMD Dr. Bran lKein [phone]) on 01/02/17 and he confirmed that patient was being treated with Isoniazid 300 mg PO 1x/day by Dr. Klein for TB Prophylaxis * My colleague spoke with [employer] Worker Dr. Mckeon and he confirmed that patient was being treated prophylactically with Isoniazid-->not on consult * Dr. Carias (infectious disease) on board-->persistent white count, placed back on isolation, collection of AFB * Negative Legionella * Mycobacterial Culture (01/06/17): no acid fast bacilli * Mycobacterial Culture (01/07/17): no acid fast bacilli * Mycobacterial Culture (01/07/17): no acid fast bacilli 6). Anemia secondary to ? * Iron studies were unremarkable * F/U with Hematology as an outpatient for further workup 7). Bacteremia * ID Dr. Carias help is greatly appreciated * As per Blood Culture 01/01/17 (1/2) that showed S. aureus and Coag Neg Strep: sensitive to levofloxcin and Vancomycin * CT Chest/Abdomen/Pelvis (01/08/17): segmental atelectais. small hiatal hernia, consoliation with bronchiectasis bibasally. Scattered areas of thicken of the intralobular septa in the subpleural lung. Differential diagnostic considerations desequamative interstitial pneumonia, chronic aspiration, sarcoid , connective tissue disase, cryptogenic organizing pneymonia, bronchoalveolar carcinoma. No previous studies are available for direct comparison. * Blood cultures (01/02/17): no growth after 5 days X2 * CT Chest showed no interval change when compared to 09/11/16: airspace opacities prominent bilateral lower lobes with associated bronchiectasis with slight increase in pleural effusion * Chest X Ray showed progressive bibasilar consolidation, progressive infiltrates with underlying bibasilar bronchiectasis with inferolateral pleural effusion * F/U Sputum Culture * F/u repeat cultures 8). Hx Hypothyroidism * Levothyroxine 88 mcg PO 1x/day 9). Possible ALL Reaction * No redness on exam noted since I took over this week * On night of 01/01/17 patient apparently had redness of face and neck and upper chest and therefore Solumedrol, Pepcid, and Benadryl were given.The Solumedrol may have contributed initially. However white count persistently elevated 10). Hx of Right Hand swelling * Right hand xray (01/11/17): no acute fracture; improved on f/u exam today 11.) Hx Ankle Edema * Right Ankle X Ray was unremarkable 12.). Hypokalemia * Monitor and replete 13). Prophylactic Measures * Pepcid 20 mg PO 2x/day * Zofran 4 mg IV Q6H PRN * Ambulatory
--- NOTE | 2017-01-13 00:33 | CON ---
LOCATION: 4. HISTORY OF PRESENT ILLNESS: This is a 51-year-old male seen, examined and entire chart was reviewed including results, current and the previous medication list, current and the previous medical events. The patient reported to have a small hiatus hernia, with some lymphadenopathy, with small low-density lesion in the tail of the pancreas. The most recent lab result showed low hemoglobin and the hematocrit, but normal platelet count with low potassium as well as low albumin 2.3. The patient is worked up for possible TB. RECOMMENDATION: 1. MRCP. 2. CAT scan-guided needle biopsy of pancreatic lesion reported in the previously done CAT scan. 3. CA19-9. 4. We will follow up p.r.n. Thank you for letting me participate in your patient's case management. Yeison Huffman MD
[2017-01-13] MEDS: Albuterol-Ipratrop 3 mg / 0.5 (3 ml) UD INH SCH ×4 (01:19→22:31)
[2017-01-13] MEDS: Vancomycin 1 gm/NS 200 ml 1 GM/200 ML BAG IVPB SCH ×2 (04:03→17:30)
[2017-01-13] MEDS: Meropenem 1 GM in Sodium Chloride 0.9% 100 ML IVPB SCH ×3 (05:43→21:05)
[2017-01-13] MEDS: Levothyroxine 88 MCG TAB PO SCH (05:43)
[2017-01-13] MEDS: metroNIDAZOLE IV 500 mg/100 ml 500 MG/100 ML BAG IVPB SCH ×3 (06:52→21:02)
[2017-01-13 06:55] LABS: BASO % 0.2 % (0.0-2.0); EOS # 0.8 K/uL (0.0-0.7); EOS % 7.9 % (0.0-4.0); HEMATOCRIT 33.2 % (35.0-51.0); LYMPH # 1.3 K/uL (1.0-4.3); MEAN CELL VOLUME 83.7 fL (80.0-94.0); MEAN CORPUSCULAR HEMOGLOBIN 27.6 pg (27.0-31.0); MEAN CORPUSCULAR HGB CONC 32.9 g/dL (33.0-37.0); MEAN PLATELET VOLUME 8.3 fL (7.2-11.7); MONO # 0.2 K/uL (0.0-0.8); MONO % 2.4 % (0.0-10.0); NRBC % 0.1 % (0.0-2.0); WHITE BLOOD COUNT 9.6 K/uL (4.8-10.8)
[2017-01-13 07:21] LABS: ALB/GLOB RATIO 0.5 (1.0-2.1); ALKALINE PHOSPHATASE 88 U/L (38-126); ALT/SGPT 60 U/L (21-72); AST/SGOT 82 U/L (17-59); BILIRUBIN,TOTAL 0.4 mg/dL (0.2-1.3); BLOOD UREA NITROGEN 15 mg/dL (9-20); CALCIUM 6.9 mg/dl (8.6-10.4); CARBON DIOXIDE 28 mmol/L (22-30); CHLORIDE 98 mmol/L (98-107); GFR AFRICAN-AMERICAN > 60; GLUCOSE,RANDOM 79 mg/dL (75-110); MAGNESIUM 1.6 mg/dL (1.6-2.3); PHOSPHOROUS 3.9 mg/dL (2.5-4.5); POTASSIUM 4.1 mmol/L (3.6-5.2); SODIUM 133 mmol/L (132-148); TOTAL PROTEIN 7.2 g/dL (6.3-8.3)
[2017-01-13] MEDS: Simethicone 80 mg Chewtab PO SCH ×4 (10:13→21:02)
--- NOTE | 2017-01-13 10:39 | CP.PCM.PN ---
Subjective - Date & Time of Evaluation Date of Evaluation: 01/13/17 Time of Evaluation: 07:30 - Subjective Subjective: PGY1- Medicine Note- Dr. Delarosa's Service Patient seen and examined at bedside. Patient is having chills. Patient is coughing and brining up minimal phlegm. Otherwise patient feels the same as yesterday. Patient denies headache, shortness of breath, chest pain, abdominal pain, nausea, vomiting, constipation, diarrhea. Objective - Vital Signs/Intake and Output Vital Signs (last 24 hours): Temp Pulse Resp BP Pulse Ox 99.5 F 101 H 19 108/48 L 98 01/13/17 09:57 01/13/17 08:05 01/13/17 08:05 01/13/17 08:05 01/13/17 08:05 Intake and Output: 01/13/17 01/13/17 06:59 18:59 Intake Total 620 Balance 620 - Medications Medications: Current Medications Acetaminophen (Tylenol 325mg Tab) 650 mg PO Q6 PRN PRN Reason: Fever >100.4 F Last Admin: 01/13/17 08:57 Dose: 650 mg Albuterol/Ipratropium (Duoneb 3 Mg/0.5 Mg (3 Ml) Ud) 3 ml INH RQ6 [facility] Last Admin: 01/13/17 07:41 Dose: 3 ml Aspirin (Aspirin Chewable) 81 mg PO DAILY [facility] Last Admin: 01/13/17 10:12 Dose: 81 mg Clopidogrel Bisulfate (Plavix) 75 mg PO DAILY [facility] Last Admin: 01/13/17 10:12 Dose: 75 mg Famotidine (Pepcid) 20 mg PO BID [facility] Last Admin: 01/13/17 10:12 Dose: 20 mg Meropenem 1 gm/ Sodium (Chloride) 100 mls @ 100 mls/hr IVPB Q8 [facility] Last Admin: 01/13/17 05:43 Dose: 100 mls/hr Vancomycin/Sodium Chloride (Vancocin) 1 gm in 200 mls @ 133 mls/hr IVPB Q12H [facility] Stop: 01/15/17 16:31 Last Admin: 01/13/17 04:03 Dose: 133 mls/hr Metronidazole (Flagyl) 500 mg in 100 mls @ 100 mls/hr IVPB Q8 [facility] Last Admin: 01/13/17 06:52 Dose: 100 mls/hr Isoniazid (Niazid) 300 mg PO DAILY [facility] Last Admin: 01/01/17 11:48 Dose: 300 mg Levothyroxine Sodium (Synthroid) 88 mcg PO DAILY@0630 [facility] Last Admin: 01/13/17 05:43 Dose: 88 mcg Ondansetron HCl (Zofran Inj) 4 mg IVP Q6H PRN PRN Reason: Nausea/Vomiting Pyridoxine HCl (Vitamin B6) 25 mg PO DAILY [facility] Last Admin: 01/12/17 09:25 Dose: 25 mg Saccharomyces Boulardii (Florastor) 250 mg PO BID [facility] Last Admin: 01/12/17 18:32 Dose: 250 mg Simethicone (Mylicon Chew Tab) 80 mg PO QID [facility] Last Admin: 01/13/17 10:13 Dose: 80 mg - Labs Labs: 01/13/17 06:43 01/13/17 06:43 - Constitutional Appears: Non-toxic, No Acute Distress - Head Exam Head Exam: ATRAUMATIC, NORMAL INSPECTION, NORMOCEPHALIC - Eye Exam Eye Exam: EOMI, Normal appearance, PERRL - ENT Exam ENT Exam: Mucous Membranes Moist, Normal Exam - Neck Exam Neck Exam: Full ROM, Normal Inspection. absent: Lymphadenopathy - Respiratory Exam Respiratory Exam: Rales, NORMAL BREATHING PATTERN Additional comments: rales at base of lungs b/l - Cardiovascular Exam Cardiovascular Exam: REGULAR RHYTHM, RRR. absent: Gallop, Rubs, Murmur - GI/Abdominal Exam GI & Abdominal Exam: Soft, Normal Bowel Sounds. absent: Firm, Guarding, Rigid, Tenderness - Extremities Exam Extremities Exam: Full ROM, Normal Inspection. absent: Pedal Edema, Tenderness - Back Exam Back Exam: NORMAL INSPECTION. absent: rash noted - Neurological Exam Neurological Exam: Alert, Awake, Oriented x3 - Psychiatric Exam Psychiatric exam: Normal Affect, Normal Mood - Skin Skin Exam: Intact, Normal Color, Warm Assessment and Plan - Assessment and Plan (Free Text) Assessment: Leukocytosis Assessment & Plan: WBC downtrending 9.6 on 01/13 Pt afebrile this AM CXR (01/06/17):hypoinflation, bronchovascular crowing, bibasilar atelectasis or infiltrates, probable trace bilateral pleural effusions as per Dr. Carias, patient put on isolation parameters CT/C/A/P (01/09/17): Segmental atelectasis with bronchiectasis bibasally. Scattered areas of thickening in intralobular septum in subpleural lung. DDX include interstitial pneumonia, chronic aspiration, sarcoid, connective tissue disease, cryptogenic organizing pneumoina, broncheoalveolar carcinoma. AFB 01/07: PRELIM - negative, 2nd AFB 01/07 - PRELIM - negative, AFB 01/03: PRELIM - negative AFB culture (01/06/17): No acid fast bacilli seen CRP >15 LDH>750 ESR (01/09/17) 101, (01/07/17) ESR 79 Legionella, Strep Pneumo (-), Mycoplasma pending procalcitonin<.05 dopplers of lower and upper extremities: negative except abnormal finding of right cephalic vein -aspirin 81mg daily HIV negative 01/11: blood and urine cultures no growth for 24 hours Respiratory infection pneumonia v bronchiectasis Pending quantiferon test result - indeterminate AFB (-) x 4 Isonazid 300mg PO Daily started B6 25 mg PO daily (01/05) F/u with patient's PMD regarding TB diagnosis: * As per conversation with Dr. Pete Gresham and Dr. Stoll (who was covering for PMD Dr. Bran Klein [phone]) on 01/02/17 and he confirmed that patient was being treated with Isoniazid 300 mg PO 1x/day by Dr. Klein for TB Prophylaxis [employer] Dr. Barrow----> Help appreciated Imaging: CT chest: No significant interval change in the lungs since the previous exam. Interval slight increase in the size of the pleural effusion. Otherwise no significant interval change 01/01 Chest X-ray: Progressive bibasilar consolidations. Progressive infiltrates in this patient with underlying bibasilar bronchiectasis here is inferred. Inferolateral pleural effusions with pleural thickening Meropenem 1 gram IV Q 8hours (active since 01/04/17) Flagyl 500mg PO Q 8 hours (active since 01/05/17) Florastor 250mg PO bid Fever secondary to TB vs Aspiration pneumonia 01/13: Tmax 103 at 22:40 01/12: fever of 102 at 7:35 f/u speech and swallow- although patient appears to be tolerating PO intake at this time, coughing was noted during his meal and patient reports that coughing increases while eating. Suggest a modified barium swallow to r/o aspiration modified barium swallow(01/13): no penetration or aspiration observed aspiration precautions 01/09: Afebrile overnight ID consult (Dr. Carias), help appreciated Tmax: 100.6 (01/01/17) Blood culture/ gram stain (01/01): (+) for gram positive cocci/ Coagulase negative staphylococcus blood culture(01/11): no growth for 48 hours urine culture (01/11): no growth Status: Acute Bacteremia ID Consult (Dr. Carias on board)---> Help appreciated, Dr. Carias suggests continuing the Vanco 1 gm q 12 and Meropenem 1 gm q8h. Blood culture repeat on 01/02 negative for 72 hours, Urine Culture 01/01 negative Blood culture/ gram stain : (+) for gram positive cocci/ Coagulase negative staphylococcus Lactate: 734 (01/13) Status: Acute Pancreatic Lesion CT C/A/P (01/08/17): 8mm low density lesion in tail of pancreas. Report from CT indicated a 3mm lesion in the pancreatic tail. No old study to compare. Recommend further evaluation with pancreas dedicated MRI w MRCP (see full report ) Dr. Jonas, GI consulted: help appreciated f/u MRCP f/u CA 19-9 f/u with IR for biopsy of pancreas Superficial Thrombophlebitis * Venous doppler (01/08/17): acute thrombosis of right cephalic vein and no evidence of vein thrombosis with left upper extremity w excellent venous flow. * Venous doppler (01/08/17): No DVT nor SVT bilateral lower extremities * Aspirin 81mg PO daily Lower Extremity Edema Resolved Echo:mild pulmonary hypertension. normal left ventricle, normal EF. Lasix 20 mg once given 01/06 Vertigo Resolved Vestibular Disequilibrium Right Ear Possibly secondary to drug-induced (Minocycline HCl - discontinued) * Zofran 4mg IV Q6H prn --> for associated nausea and vomiting Neurology consult ( Dr. Spears)---> Help appreciated As per neurology: * Hydration * Meclizine PRN * Plavix * Out of bed * No further work up needed 01/02: HIV antibody 1 and 2 screen ordered: Negative RPR: Negative Imaging: ECHO: mild pulmonary hypertension. normal left ventricle, normal EF. CT head: No acute findings Brain MRI: No acute intracranial hemorrhage. Minimal of prolonged T2 signal changes seen in the periventricular white matter which may in part be related to CSF interface artifact however the possibility of some minimal concomitant chronic sequela of small vessel disease not excluded. Mild generalized volume loss. No enhancing masses. No evidence of unusual meningeal enhancement. Carotid doppler : Duplex scan does not suggest hemodynamically significant stenosis of the right and left extracranial carotid arteries Chest X-ray: Progressive bibasilar consolidations. Progressive infiltrates in this patient with underlying bibasilar bronchiectasis here is inferred. Inferolateral pleural effusions with pleural thickening -renoted Diarrhea Assessment & Plan: C dif toxin, stool culture, ova and parasite: all negative Flagyl stopped Status: Resolved Anemia Assessment & Plan: 01/12: 10.7/ 32.1 Stable H/H on admission: 11.1/34.6 Iron studies: * Iron 75 * TIBC : 207 * % Saturation: 34 * Ferritin: 454 Monitor H/H Status: Acute History of hypothyroidism Assessment & Plan: Continue home medication: * Synthroid 88mcg PO daily * TSH normal Status: Acute Edema of right ankle Assessment & Plan: Ankle X-ray: No fracture or arthritis. Mild circumferential soft tissue swelling bilaterally. Pending b/l Doppler official report Stopped fluids (01/03/17) Status: resolved Prophylactic measure Assessment & Plan: SCDs Ambulating Pepcid 20mg PO BID Florastor 250mg PO BID Status: Acute
[2017-01-13] MEDS: Saccharomyces Boulardi 250 mg Cap PO SCH ×2 (11:21→17:37)
--- NOTE | 2017-01-13 13:04 | RAD ---
PROCEDURE: Modified barium swallow study. HISTORY: difficulty swallowing COMPARISON: None available. TECHNIQUE: Under fluoroscopic guidance, barium meals of various consistency were administered to the patient by the speech pathologist. FINDINGS: No penetration or aspiration was observed during this study. Pooling was noted within the valleculae and piriform sinuses with various food substances. IMPRESSION: No penetration or aspiration observed. Please refer to the detailed report and recommendations of the speech pathologist.
[2017-01-13 15:44] LABS: CA 19-9 10.1 U/mL (0-37)
[2017-01-14] MEDS: Vancomycin 1 gm/NS 200 ml 1 GM/200 ML BAG IVPB SCH ×2 (04:35→17:24)
[2017-01-14] MEDS: Meropenem 1 GM in Sodium Chloride 0.9% 100 ML IVPB SCH ×2 (06:08→14:53)
[2017-01-14] MEDS: metroNIDAZOLE IV 500 mg/100 ml 500 MG/100 ML BAG IVPB SCH ×2 (06:47→13:22)
[2017-01-14] MEDS: Levothyroxine 88 MCG TAB PO SCH (07:00)
[2017-01-14] MEDS: Albuterol-Ipratrop 3 mg / 0.5 (3 ml) UD INH SCH ×3 (07:26→19:59)
[2017-01-14 07:39] LABS: BASO % 0.3 % (0.0-2.0); EOS # 0.8 K/uL (0.0-0.7); EOS % 9.4 % (0.0-4.0); HEMATOCRIT 29.6 % (35.0-51.0); LYMPH # 0.9 K/uL (1.0-4.3); LYMPH % 10.5 % (20.0-40.0); MEAN CELL VOLUME 82.9 fL (80.0-94.0); MEAN CORPUSCULAR HEMOGLOBIN 27.9 pg (27.0-31.0); MEAN CORPUSCULAR HGB CONC 33.7 g/dL (33.0-37.0); MEAN PLATELET VOLUME 8.4 fL (7.2-11.7); MONO # 0.3 K/uL (0.0-0.8); MONO % 3.1 % (0.0-10.0); NRBC % 0.1 % (0.0-2.0); RED CELL DISTRIBUTION WIDTH 19.8 % (11.5-14.5); WHITE BLOOD COUNT 8.7 K/uL (4.8-10.8)
[2017-01-14 07:41] LABS: CHLORIDE 98 mmol/L (98-107); SODIUM 131 mmol/L (132-148)
[2017-01-14 07:42] LABS: POTASSIUM 3.9 mmol/L (3.6-5.2)
[2017-01-14 07:43] LABS: GFR AFRICAN-AMERICAN > 60
[2017-01-14 07:44] LABS: ALB/GLOB RATIO 0.5 (1.0-2.1); ALKALINE PHOSPHATASE 83 U/L (38-126); ALT/SGPT 59 U/L (21-72); AST/SGOT 75 U/L (17-59); BILIRUBIN,TOTAL 0.4 mg/dL (0.2-1.3); BLOOD UREA NITROGEN 13 mg/dL (9-20); CALCIUM 6.8 mg/dl (8.6-10.4); CARBON DIOXIDE 26 mmol/L (22-30); GLUCOSE,RANDOM 86 mg/dL (75-110); TOTAL PROTEIN 6.7 g/dL (6.3-8.3)
[2017-01-14 07:45] LABS: MAGNESIUM 1.5 mg/dL (1.6-2.3)
[2017-01-14] MEDS: Simethicone 80 mg Chewtab PO SCH ×5 (10:00→22:05)
[2017-01-14] MEDS: Saccharomyces Boulardi 250 mg Cap PO SCH ×3 (10:00→17:23)
--- NOTE | 2017-01-14 11:28 | MRI ---
MRCP Indication: Pancreatic lesion Technique: Multiplanar, multisequence MR images of the abdomen were obtained, including heavily T2 weighted MRCP images of the biliary system. Rotating maximum intensity projection images of the biliary system were generated. A total of 577 images were submitted for review. Comparison: CT of the chest, abdomen, and pelvis with IV contrast performed 01/08/17 Findings: The liver appears grossly unremarkable. There is no intrahepatic biliary ductal dilatation. The common bile duct appears within normal limits in caliber and tapers distally. The pancreatic duct does not appear dilated. No filling defects are seen in the common bile duct or pancreatic duct. 2.2 cm T2 hyperintense T1 hypo intense lesion in the right kidney consistent with previously demonstrated cyst. 4 mm T1 hypo intense focus at the pancreatic tail consistent with finding on recent CT cannot be further characterized on this study as it is not adequately visualized on several sequences obscured by motion or artifact. The noncontrast visualized portions of the gallbladder adrenal glands, kidneys, spleen, and pancreas appear grossly unremarkable. No ascites. Partially imaged severe constipation. Limited visualization of the lung bases reveals extensive consolidation described in detail on CT of the chest, abdomen, and pelvis performed 01/08/17. No acute osseous abnormality is detected. Impression: 4 mm T1 hypo intense focus at the pancreatic tail consistent with finding on recent CT cannot be further characterized on this study as it is not adequately visualized on several sequences obscured by motion or artifact. 2.2 cm T2 hyperintense T1 hypo intense lesion in the right kidney consistent with previously demonstrated cyst. Partially imaged severe constipation. Limited visualization of the lung bases reveals extensive consolidation described in detail on CT of the chest, abdomen, and pelvis performed 01/08/17.
[2017-01-14] MEDS ORDERED: POLYETHYLENE GLYCOL 3350 17 GM/Dose PACKET PO STA (13:04)
--- NOTE | 2017-01-14 16:06 | CP.PCM.PN ---
Subjective - Date & Time of Evaluation Date of Evaluation: 01/14/17 Time of Evaluation: 07:00 - Subjective Subjective: PGY-1, Medicine Note- Dr. Delarosa's Service Patient seen and examined at bedside and in no acute distress. Patient says he felt fevers and chills overnight. Otherwise patient has no complaints. Patient denies headache, shortness of breath, chest pain, abdominal pain, nausea, vomiting, diarrhea, constipation. Objective - Vital Signs/Intake and Output Vital Signs (last 24 hours): Temp Pulse Resp BP Pulse Ox 101.9 F H 90 18 100/50 L 98 01/14/17 12:02 01/14/17 07:56 01/14/17 07:56 01/14/17 07:56 01/14/17 07:56 Intake and Output: 01/14/17 01/14/17 06:59 18:59 Intake Total 720 Balance 720 - Medications Medications: Current Medications Acetaminophen (Tylenol 325mg Tab) 650 mg PO Q6 PRN PRN Reason: Fever >100.4 F Last Admin: 01/14/17 12:02 Dose: 650 mg Albuterol/Ipratropium (Duoneb 3 Mg/0.5 Mg (3 Ml) Ud) 3 ml INH RQ6 [facility] Last Admin: 01/14/17 13:20 Dose: 3 ml Aspirin (Aspirin Chewable) 81 mg PO DAILY [facility] Last Admin: 01/14/17 11:49 Dose: 81 mg Clopidogrel Bisulfate (Plavix) 75 mg PO DAILY [facility] Last Admin: 01/14/17 11:49 Dose: 75 mg Famotidine (Pepcid) 20 mg PO BID [facility] Last Admin: 01/14/17 11:49 Dose: 20 mg Meropenem 1 gm/ Sodium (Chloride) 100 mls @ 100 mls/hr IVPB Q8 [facility] Last Admin: 01/14/17 14:53 Dose: 100 mls/hr Vancomycin/Sodium Chloride (Vancocin) 1 gm in 200 mls @ 133 mls/hr IVPB Q12H [facility] Stop: 01/15/17 16:31 Last Admin: 01/14/17 04:35 Dose: 133 mls/hr Metronidazole (Flagyl) 500 mg in 100 mls @ 100 mls/hr IVPB Q8 [facility] Last Admin: 01/14/17 13:22 Dose: 100 mls/hr Isoniazid (Niazid) 300 mg PO DAILY [facility] Last Admin: 01/01/17 11:48 Dose: 300 mg Levothyroxine Sodium (Synthroid) 88 mcg PO DAILY@0630 [facility] Last Admin: 01/13/17 05:43 Dose: 88 mcg Ondansetron HCl (Zofran Inj) 4 mg IVP Q6H PRN PRN Reason: Nausea/Vomiting Pyridoxine HCl (Vitamin B6) 25 mg PO DAILY [facility] Last Admin: 01/14/17 11:49 Dose: 25 mg Saccharomyces Boulardii (Florastor) 250 mg PO BID [facility] Last Admin: 01/14/17 11:50 Dose: 250 mg Simethicone (Mylicon Chew Tab) 80 mg PO QID [facility] Last Admin: 01/14/17 13:44 Dose: 80 mg - Labs Labs: 01/14/17 06:53 01/14/17 06:53 - Constitutional Appears: Non-toxic, No Acute Distress - Head Exam Head Exam: ATRAUMATIC, NORMAL INSPECTION, NORMOCEPHALIC - Eye Exam Eye Exam: EOMI, Normal appearance, PERRL - ENT Exam ENT Exam: Mucous Membranes Moist, Normal Exam - Neck Exam Neck Exam: Full ROM, Normal Inspection. absent: Lymphadenopathy - Respiratory Exam Respiratory Exam: Rales, NORMAL BREATHING PATTERN - Cardiovascular Exam Cardiovascular Exam: REGULAR RHYTHM, RRR, +S1, +S2. absent: Murmur - GI/Abdominal Exam GI & Abdominal Exam: Soft, Normal Bowel Sounds. absent: Tenderness - Extremities Exam Extremities Exam: Full ROM, Normal Capillary Refill, Normal Inspection. absent : Joint Swelling, Pedal Edema - Back Exam Back Exam: NORMAL INSPECTION - Neurological Exam Neurological Exam: Alert, Awake, Oriented x3 - Psychiatric Exam Psychiatric exam: Normal Affect, Normal Mood - Skin Skin Exam: Intact, Normal Color, Warm Assessment and Plan - Assessment and Plan (Free Text) Assessment: Leukocytosis Assessment & Plan: WBC on 01/14: 8.7 WBC 9.6 on 01/13 CXR (01/06/17):hypoinflation, bronchovascular crowing, bibasilar atelectasis or infiltrates, probable trace bilateral pleural effusions as per Dr. Carias, patient put on isolation parameters CT/C/A/P (01/09/17): Segmental atelectasis with bronchiectasis bibasally. Scattered areas of thickening in intralobular septum in subpleural lung. DDX include interstitial pneumonia, chronic aspiration, sarcoid, connective tissue disease, cryptogenic organizing pneumoina, broncheoalveolar carcinoma. AFB 01/07: PRELIM - negative, 2nd AFB 01/07 - PRELIM - negative, AFB 01/03: PRELIM - negative AFB culture (01/06/17): No acid fast bacilli seen CRP >15 LDH>750 ESR (01/09/17) 101, (01/07/17) ESR 79 Legionella, Strep Pneumo (-), Mycoplasma pending procalcitonin<.05 dopplers of lower and upper extremities: negative except abnormal finding of right cephalic vein -aspirin 81mg daily HIV negative 01/11: blood and urine cultures no growth for 24 hours Respiratory infection pneumonia v bronchiectasis Pending quantiferon test result - indeterminate AFB (-) x 4 Isonazid 300mg PO Daily started B6 25 mg PO daily (01/05) F/u with patient's PMD regarding TB diagnosis: * As per conversation with Dr. Pete Gresham and Dr. Stoll (who was covering for PMD Dr. Bran Klein [phone]) on 01/02/17 and he confirmed that patient was being treated with Isoniazid 300 mg PO 1x/day by Dr. Klein for TB Prophylaxis [employer] Dr. Barrow----> Help appreciated Imaging: CT chest: No significant interval change in the lungs since the previous exam. Interval slight increase in the size of the pleural effusion. Otherwise no significant interval change 01/01 Chest X-ray: Progressive bibasilar consolidations. Progressive infiltrates in this patient with underlying bibasilar bronchiectasis here is inferred. Inferolateral pleural effusions with pleural thickening Meropenem 1 gram IV Q 8hours (active since 01/04/17) Flagyl 500mg PO Q 8 hours (active since 01/05/17) Florastor 250mg PO bid Fever secondary to TB vs Aspiration pneumonia 01/13: 23:20 fever of 102.8 01/12: Tmax 103 at 22:40 01/12: fever of 102 at 7:35 f/u speech and swallow- although patient appears to be tolerating PO intake at this time, coughing was noted during his meal and patient reports that coughing increases while eating. Suggest a modified barium swallow to r/o aspiration modified barium swallow(01/13): no penetration or aspiration observed aspiration precautions 01/09: Afebrile overnight ID consult (Dr. Carias), help appreciated Tmax: 100.6 (01/01/17) Blood culture/ gram stain (01/01): (+) for gram positive cocci/ Coagulase negative staphylococcus blood culture(01/11): no growth for 48 hours urine culture (01/11): no growth Status: Acute Bacteremia ID Consult (Dr. Carias on board)---> Help appreciated, Dr. Carias suggests continuing the Vanco 1 gm q 12 and Meropenem 1 gm q8h. Blood culture repeat on 01/02 negative for 72 hours, Urine Culture 01/01 negative Blood culture/ gram stain : (+) for gram positive cocci/ Coagulase negative staphylococcus Lactate: 734 (01/13) Status: Acute Pancreatic Lesion CT C/A/P (01/08/17): 8mm low density lesion in tail of pancreas. Report from CT indicated a 3mm lesion in the pancreatic tail. No old study to compare. Recommend further evaluation with pancreas dedicated MRI w MRCP (see full report ) Dr. Jonas, GI consulted: help appreciated MRCP: 4mm T1 hypo intense focus at pancreatic tail consistent with finding on recent CT, cannot be further characterized 2.2 cm T2 hyperintense T1 hypo intense lesion in right kidney consistent with previously demonstrated cyst CA 19-9: 01/12-10.3, 01/13- 10.1, 01/14- 11.6 f/u with IR for biopsy of pancreas * Dr. Jacobson consulted, help appreciated Superficial Thrombophlebitis * Venous doppler (01/08/17): acute thrombosis of right cephalic vein and no evidence of vein thrombosis with left upper extremity w excellent venous flow. * Venous doppler (01/08/17): No DVT nor SVT bilateral lower extremities * Aspirin 81mg PO daily Lower Extremity Edema Resolved Echo:mild pulmonary hypertension. normal left ventricle, normal EF. Lasix 20 mg once given 01/06 Vertigo Resolved Vestibular Disequilibrium Right Ear Possibly secondary to drug-induced (Minocycline HCl - discontinued) * Zofran 4mg IV Q6H prn --> for associated nausea and vomiting Neurology consult ( Dr. Spears)---> Help appreciated As per neurology: * Hydration * Meclizine PRN * Plavix- patient to stay on plavix for 6 months * Out of bed * No further work up needed 01/02: HIV antibody 1 and 2 screen ordered: Negative RPR: Negative Imaging: ECHO: mild pulmonary hypertension. normal left ventricle, normal EF. CT head: No acute findings Brain MRI: No acute intracranial hemorrhage. Minimal of prolonged T2 signal changes seen in the periventricular white matter which may in part be related to CSF interface artifact however the possibility of some minimal concomitant chronic sequela of small vessel disease not excluded. Mild generalized volume loss. No enhancing masses. No evidence of unusual meningeal enhancement. Carotid doppler : Duplex scan does not suggest hemodynamically significant stenosis of the right and left extracranial carotid arteries Chest X-ray: Progressive bibasilar consolidations. Progressive infiltrates in this patient with underlying bibasilar bronchiectasis here is inferred. Inferolateral pleural effusions with pleural thickening -renoted Diarrhea Assessment & Plan: C dif toxin, stool culture, ova and parasite: all negative Flagyl stopped Status: Resolved Anemia Assessment & Plan: 01/12: 10.7/ 32.1 Stable H/H on admission: 11.1/34.6 Iron studies: * Iron 75 * TIBC : 207 * % Saturation: 34 * Ferritin: 454 Monitor H/H Status: Acute History of hypothyroidism Assessment & Plan: Continue home medication: * Synthroid 88mcg PO daily * TSH normal Status: Acute Edema of right ankle Assessment & Plan: Ankle X-ray: No fracture or arthritis. Mild circumferential soft tissue swelling bilaterally. Pending b/l Doppler official report Stopped fluids (01/03/17) Status: resolved Prophylactic measure Assessment & Plan: SCDs Ambulating Pepcid 20mg PO BID Florastor 250mg PO BID Status: Acute
--- NOTE | 2017-01-14 19:55 | CP.PCM.PN ---
Subjective - Date & Time of Evaluation Date of Evaluation: 01/14/17 Time of Evaluation: 05:30 - Subjective Subjective: dictated Objective - Vital Signs/Intake and Output Vital Signs (last 24 hours): Temp Pulse Resp BP Pulse Ox 100.4 F H 85 20 100/58 L 98 01/14/17 18:55 01/14/17 15:11 01/14/17 15:11 01/14/17 15:11 01/14/17 15:11 Intake and Output: 01/14/17 01/15/17 18:59 06:59 Intake Total 560 Balance 560 - Medications Medications: Current Medications Acetaminophen (Tylenol 325mg Tab) 650 mg PO Q6 PRN PRN Reason: Fever >100.4 F Last Admin: 01/14/17 18:55 Dose: 650 mg Albuterol/Ipratropium (Duoneb 3 Mg/0.5 Mg (3 Ml) Ud) 3 ml INH RQ6 [facility] Last Admin: 01/14/17 13:20 Dose: 3 ml Aspirin (Aspirin Chewable) 81 mg PO DAILY [facility] Last Admin: 01/14/17 11:49 Dose: 81 mg Clopidogrel Bisulfate (Plavix) 75 mg PO DAILY [facility] Last Admin: 01/14/17 11:49 Dose: 75 mg Diphenhydramine HCl (Benadryl) 25 mg PO Q8 [facility] Stop: 01/15/17 15:00 Famotidine (Pepcid) 20 mg PO BID [facility] Last Admin: 01/14/17 17:23 Dose: 20 mg Isoniazid (Niazid) 300 mg PO DAILY [facility] Last Admin: 01/01/17 11:48 Dose: 300 mg Levothyroxine Sodium (Synthroid) 88 mcg PO DAILY@0630 [facility] Last Admin: 01/13/17 05:43 Dose: 88 mcg Ondansetron HCl (Zofran Inj) 4 mg IVP Q6H PRN PRN Reason: Nausea/Vomiting Pyridoxine HCl (Vitamin B6) 25 mg PO DAILY [facility] Last Admin: 01/14/17 11:49 Dose: 25 mg Saccharomyces Boulardii (Florastor) 250 mg PO BID [facility] Last Admin: 01/14/17 17:23 Dose: 250 mg Simethicone (Mylicon Chew Tab) 80 mg PO QID [facility] Last Admin: 01/14/17 17:23 Dose: 80 mg - Labs Labs: 01/14/17 06:53 01/14/17 06:53 Assessment and Plan (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
--- NOTE | 2017-01-15 00:10 | PN ---
DATE: 01/14/2017 SUBJECTIVE: He was seen today because the resident call me that he has been still running fever. He is otherwise feeling better. Denies any headache. shortness of breath, chest pain, abdominal pain, nausea, vomiting, diarrhea or constipation. But, I noticed he had diffuse maculopapular rash, which is probably a drug rash and he could be having a drug fever. He is also being worked out for a lesion they found in his pancreas. PHYSICAL EXAMINATION GENERAL: He appears to be stable otherwise. VITAL SIGNS: T-max was 101.9, today 100.4, blood pressure 100/58, respiration 20 and pulse is 72. HEENT: Head is atraumatic and normocephalic. NECK: Supple. CARDIOPULMONARY: S1 and S2, regular. LUNGS: Clear. Decreased breath sounds on both bases. ABDOMEN: Soft and nontender. No guarding. No rigidity present. EXTREMITIES: No edema. No clubbing or cyanosis. He did come to the hospital with INH and B6 and at that time, he did not have any rash. I think the rash is mostly related either to vancomycin or to meropenem. LABORATORY DATA: His white count is 8.7, hemoglobin 10, hematocrit 29.6 and platelet count is 265. Sodium is 131, creatinine is 0.6. ASSESSMENT AND PLAN: At this time, I would discontinue the IV antibiotics. His cultures have all been negative. He does have bronchiectasis then he has latent TB. His sputum only had yeast and active TB has been ruled out. Suggest at this time to monitor him. If he spikes again, re-culture and reevaluate. I will be away and I will endorse this patient to Dr. Calzada and let him know about him. We will follow. Kofi Carias MD
[2017-01-15] MEDS: Albuterol-Ipratrop 3 mg / 0.5 (3 ml) UD INH SCH ×4 (01:24→19:30)
[2017-01-15] MEDS: Levothyroxine 88 MCG TAB PO SCH (05:30)
[2017-01-15 07:00] LABS: ALB/GLOB RATIO 0.5 (1.0-2.1); ALKALINE PHOSPHATASE 123 U/L (38-126); ALT/SGPT 85 U/L (21-72); AST/SGOT 143 U/L (17-59); BILIRUBIN,TOTAL < 0.1 mg/dL (0.2-1.3); BLOOD UREA NITROGEN 15 mg/dL (9-20); CARBON DIOXIDE 27 mmol/L (22-30); CHLORIDE 98 mmol/L (98-107); GFR AFRICAN-AMERICAN > 60; GLUCOSE,RANDOM 75 mg/dL (75-110); MAGNESIUM 1.6 mg/dL (1.6-2.3); PHOSPHOROUS 4.4 mg/dL (2.5-4.5); POTASSIUM 3.8 mmol/L (3.6-5.2); SODIUM 132 mmol/L (132-148); TOTAL PROTEIN 6.4 g/dL (6.3-8.3)
[2017-01-15 07:16] LABS: BASO % 0.5 % (0.0-2.0); EOS # 0.6 K/uL (0.0-0.7); EOS % 7.5 % (0.0-4.0); HEMATOCRIT 31.6 % (35.0-51.0); LYMPH # 0.6 K/uL (1.0-4.3); LYMPH % 8.2 % (20.0-40.0); MEAN CELL VOLUME 82.7 fL (80.0-94.0); MEAN CORPUSCULAR HEMOGLOBIN 27.5 pg (27.0-31.0); MEAN CORPUSCULAR HGB CONC 33.2 g/dL (33.0-37.0); MEAN PLATELET VOLUME 8.3 fL (7.2-11.7); MONO # 0.3 K/uL (0.0-0.8); MONO % 3.5 % (0.0-10.0); PLATELET COUNT 246 K/uL (130-400); RED CELL DISTRIBUTION WIDTH 20.5 % (11.5-14.5); WHITE BLOOD COUNT 7.5 K/uL (4.8-10.8)
[2017-01-15 08:32] LABS: EOSINOPHIL 7 % (0-4); NEUTROPHIL 60 % (50-75); TOTAL CELLS COUNTED 100
[2017-01-15] MEDS: Saccharomyces Boulardi 250 mg Cap PO SCH ×2 (09:32→17:49)
[2017-01-15] MEDS: Simethicone 80 mg Chewtab PO SCH ×4 (09:32→21:08)
--- NOTE | 2017-01-15 14:30 | CP.PCM.PN ---
Subjective - Date & Time of Evaluation Date of Evaluation: 01/15/17 Time of Evaluation: 07:00 - Subjective Subjective: PGY-1, Medicine Note- Dr. Delarosa's Service Patient seen and examined at bedside and in no acute distress. Patient says he felt fevers and chills overnight. Patient complains he was sweating a lot overnight. Otherwise patient has no complaints. Patient denies headache, shortness of breath, chest pain, abdominal pain, nausea, vomiting, diarrhea, constipation. Objective - Vital Signs/Intake and Output Vital Signs (last 24 hours): Temp Pulse Resp BP Pulse Ox 98.1 F 73 18 99/50 L 99 01/15/17 09:15 01/15/17 09:15 01/15/17 09:15 01/15/17 09:15 01/15/17 09:15 Intake and Output: 01/15/17 01/15/17 06:59 18:59 Intake Total 560 Balance 560 - Medications Medications: Current Medications Acetaminophen (Tylenol 325mg Tab) 650 mg PO Q6 PRN PRN Reason: Fever >100.4 F Last Admin: 01/14/17 18:55 Dose: 650 mg Albuterol/Ipratropium (Duoneb 3 Mg/0.5 Mg (3 Ml) Ud) 3 ml INH RQ6 [facility] Last Admin: 01/15/17 13:15 Dose: 3 ml Aspirin (Aspirin Chewable) 81 mg PO DAILY [facility] Last Admin: 01/15/17 09:32 Dose: 81 mg Clopidogrel Bisulfate (Plavix) 75 mg PO DAILY [facility] Last Admin: 01/15/17 09:32 Dose: 75 mg Diphenhydramine HCl (Benadryl) 25 mg PO Q8 [facility] Stop: 01/15/17 15:00 Last Admin: 01/15/17 14:19 Dose: 25 mg Docusate Sodium (Colace) 100 mg PO TID [facility] Last Admin: 01/15/17 14:19 Dose: 100 mg Famotidine (Pepcid) 20 mg PO BID [facility] Last Admin: 01/15/17 09:32 Dose: 20 mg Isoniazid (Niazid) 300 mg PO DAILY [facility] Last Admin: 01/01/17 11:48 Dose: 300 mg Levothyroxine Sodium (Synthroid) 88 mcg PO DAILY@0630 [facility] Last Admin: 01/15/17 05:30 Dose: 88 mcg Ondansetron HCl (Zofran Inj) 4 mg IVP Q6H PRN PRN Reason: Nausea/Vomiting Pyridoxine HCl (Vitamin B6) 25 mg PO DAILY [facility] Last Admin: 01/15/17 09:32 Dose: 25 mg Saccharomyces Boulardii (Florastor) 250 mg PO BID [facility] Last Admin: 01/15/17 09:32 Dose: 250 mg Simethicone (Mylicon Chew Tab) 80 mg PO QID [facility] Last Admin: 01/15/17 14:23 Dose: 80 mg - Labs Labs: 01/15/17 06:36 01/15/17 06:36 - Constitutional Appears: Non-toxic, No Acute Distress - Head Exam Head Exam: ATRAUMATIC, NORMAL INSPECTION, NORMOCEPHALIC - Eye Exam Eye Exam: EOMI, Normal appearance, PERRL - ENT Exam ENT Exam: Mucous Membranes Moist, Normal Exam - Neck Exam Neck Exam: Full ROM, Normal Inspection. absent: Lymphadenopathy - Respiratory Exam Respiratory Exam: Rales, NORMAL BREATHING PATTERN - Cardiovascular Exam Cardiovascular Exam: REGULAR RHYTHM, RRR. absent: Gallop, Rubs, Murmur - GI/Abdominal Exam GI & Abdominal Exam: Soft, Normal Bowel Sounds - Extremities Exam Extremities Exam: Full ROM, Normal Inspection - Back Exam Back Exam: NORMAL INSPECTION. absent: rash noted - Neurological Exam Neurological Exam: Awake, Normal Gait, Oriented x3 - Psychiatric Exam Psychiatric exam: Normal Affect, Normal Mood - Skin Skin Exam: Intact, Rash, Warm Additional comments: patchy macular erythematous rash on chest, abdomen, shoulders and upper thighs Assessment and Plan - Assessment and Plan (Free Text) Assessment: Leukocytosis Assessment & Plan: WBC on 01/15: 7.5, bands 23 * As per Dr. Calzada, repeat blood culture * f/u urine culture and urinalysis WBC on 01/14: 8.7 WBC 9.6 on 01/13 CXR (01/06/17):hypoinflation, bronchovascular crowing, bibasilar atelectasis or infiltrates, probable trace bilateral pleural effusions as per Dr. Carias, patient put on isolation parameters CT/C/A/P (01/09/17): Segmental atelectasis with bronchiectasis bibasally. Scattered areas of thickening in intralobular septum in subpleural lung. DDX include interstitial pneumonia, chronic aspiration, sarcoid, connective tissue disease, cryptogenic organizing pneumoina, broncheoalveolar carcinoma. AFB 01/07: PRELIM - negative, 2nd AFB 01/07 - PRELIM - negative, AFB 01/03: PRELIM - negative AFB culture (01/06/17): No acid fast bacilli seen CRP >15 LDH>750 ESR (01/09/17) 101, (01/07/17) ESR 79 Legionella, Strep Pneumo (-), Mycoplasma pending procalcitonin<.05 dopplers of lower and upper extremities: negative except abnormal finding of right cephalic vein -aspirin 81mg daily HIV negative 01/11: blood and urine cultures no growth for 24 hours Diffuse Macular Rash possibly secondary to antibiotics as per ID, Dr. Carias, antibiotics stopped since cultures are negative, will continue to monitor as patient believes the rash started before he was hospitalized started on Ketoconazole cream for possible fungal infection Respiratory infection pneumonia v bronchiectasis Pending quantiferon test result - indeterminate AFB (-) x 4 Isonazid 300mg PO Daily started B6 25 mg PO daily (01/05) F/u with patient's PMD regarding TB diagnosis: * As per conversation with Dr. Pete Gresham and Dr. Stoll (who was covering for PMD Dr. Bran Klein [phone]) on 01/02/17 and he confirmed that patient was being treated with Isoniazid 300 mg PO 1x/day by Dr. 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 Interval slight increase in the size of the pleural effusion. Otherwise no significant interval change 01/01 Chest X-ray: Progressive bibasilar consolidations. Progressive infiltrates in this patient with underlying bibasilar bronchiectasis here is inferred. Inferolateral pleural effusions with pleural thickening Meropenem 1 gram IV Q 8hours (active since 01/04/17) Flagyl 500mg PO Q 8 hours (active since 01/05/17) Florastor 250mg PO bid Fever secondary to TB vs Aspiration pneumonia 01/14: tmax 102.7 01/13: 23:20 fever of 102.8 01/12: Tmax 103 at 22:40 01/12: fever of 102 at 7:35 f/u speech and swallow- although patient appears to be tolerating PO intake at this time, coughing was noted during his meal and patient reports that coughing increases while eating. Suggest a modified barium swallow to r/o aspiration modified barium swallow(01/13): no penetration or aspiration observed aspiration precautions 01/09: Afebrile overnight ID consult (Dr. Carias), help appreciated Tmax: 100.6 (01/01/17) Blood culture/ gram stain (01/01): (+) for gram positive cocci/ Coagulase negative staphylococcus blood culture(01/11): no growth for 48 hours urine culture (01/11): no growth Status: Acute Bacteremia ID Consult (Dr. Carias on board), help appreciated. Dr. Carias stopped antibiotics on 01/14 01/15: Repeat urine culture, urinalysis, and blood culture, follow up Blood culture repeat on 01/02 negative for 72 hours, Urine Culture 01/01 negative Blood culture/ gram stain : (+) for gram positive cocci/ Coagulase negative staphylococcus Lactate: 734 (01/13) Status: Acute Pancreatic Lesion CT C/A/P (01/08/17): 8mm low density lesion in tail of pancreas. Report from CT indicated a 3mm lesion in the pancreatic tail. No old study to compare. Recommend further evaluation with pancreas dedicated MRI w MRCP (see full report ) Dr. Jonas, GI consulted: help appreciated MRCP: 4mm T1 hypo intense focus at pancreatic tail consistent with finding on recent CT, cannot be further characterized 2.2 cm T2 hyperintense T1 hypo intense lesion in right kidney consistent with previously demonstrated cyst CA 19-9: 01/12-10.3, 01/13- 10.1, 01/14- 11.6 IR for biopsy of pancreas * Dr. Jacobson consulted, help appreciated, --lesion to small to biopsy, will continue to follow Superficial Thrombophlebitis * Venous doppler (01/08/17): acute thrombosis of right cephalic vein and no evidence of vein thrombosis with left upper extremity w excellent venous flow. * Venous doppler (01/08/17): No DVT nor SVT bilateral lower extremities * Aspirin 81mg PO daily Constipation Assessment & Plan: MRCP (01/14) showed severe constipation Miralax given which helped patient have a bowel movement Started on Colace 100 mg po TID Status: Acute Anemia Assessment & Plan: 01/15: 10.5/31.6 01/12: 10.7/ 32.1 Stable H/H on admission: 11.1/34.6 Iron studies: * Iron 75 * TIBC : 207 * % Saturation: 34 * Ferritin: 454 Monitor H/H Status: Acute History of hypothyroidism Assessment & Plan: Continue home medication: * Synthroid 88mcg PO daily * TSH normal Status: Acute Vertigo Resolved Vestibular Disequilibrium Right Ear Possibly secondary to drug-induced (Minocycline HCl - discontinued) * Zofran 4mg IV Q6H prn --> for associated nausea and vomiting Neurology consult ( Dr. Spears)---> Help appreciated As per neurology: * Hydration * Meclizine PRN * Plavix- patient to stay on plavix for 6 months * Out of bed * No further work up needed 01/02: HIV antibody 1 and 2 screen ordered: Negative RPR: Negative Imaging: ECHO: mild pulmonary hypertension. normal left ventricle, normal EF. CT head: No acute findings Brain MRI: No acute intracranial hemorrhage. Minimal of prolonged T2 signal changes seen in the periventricular white matter which may in part be related to CSF interface artifact however the possibility of some minimal concomitant chronic sequela of small vessel disease not excluded. Mild generalized volume loss. No enhancing masses. No evidence of unusual meningeal enhancement. Carotid doppler : Duplex scan does not suggest hemodynamically significant stenosis of the right and left extracranial carotid arteries Chest X-ray: Progressive bibasilar consolidations. Progressive infiltrates in this patient with underlying bibasilar bronchiectasis here is inferred. Inferolateral pleural effusions with pleural thickening -renoted Diarrhea Assessment & Plan: C dif toxin, stool culture, ova and parasite: all negative Flagyl stopped Status: Resolved Lower Extremity Edema Resolved Echo:mild pulmonary hypertension. normal left ventricle, normal EF. Lasix 20 mg once given 01/06 Edema of right ankle Assessment & Plan: Ankle X-ray: No fracture or arthritis. Mild circumferential soft tissue swelling bilaterally. Pending b/l Doppler official report Stopped fluids (01/03/17) Status: resolved Prophylactic measure Assessment & Plan: SCDs Ambulating Pepcid 20mg PO BID Florastor 250mg PO BID Status: Acute
--- NOTE | 2017-01-15 18:25 | CP.PCM.PN ---
Subjective - Date & Time of Evaluation Date of Evaluation: 01/15/17 Time of Evaluation: 18:21 - Subjective Subjective: pt with low grade temps prior aspiration pneumonia due to repetitive vomiting also new drug rash note on face and chest sputum AFB neg x4 with culture neg at 1 week no indication for bronchoscopy at this time continue abx, nebs Objective - Vital Signs/Intake and Output Vital Signs (last 24 hours): Temp Pulse Resp BP Pulse Ox 100.9 F H 78 20 109/66 100 01/15/17 17:50 01/15/17 15:45 01/15/17 15:45 01/15/17 15:45 01/15/17 15:45 Intake and Output: 01/15/17 01/15/17 06:59 18:59 Intake Total 560 Balance 560 - Medications Medications: Current Medications Albuterol/Ipratropium (Duoneb 3 Mg/0.5 Mg (3 Ml) Ud) 3 ml INH RQ6 [facility] Last Admin: 01/15/17 13:15 Dose: 3 ml Aspirin (Aspirin Chewable) 81 mg PO DAILY [facility] Last Admin: 01/15/17 09:32 Dose: 81 mg Clopidogrel Bisulfate (Plavix) 75 mg PO DAILY [facility] Last Admin: 01/15/17 09:32 Dose: 75 mg Docusate Sodium (Colace) 100 mg PO TID [facility] Last Admin: 01/15/17 17:49 Dose: 100 mg Famotidine (Pepcid) 20 mg PO BID [facility] Last Admin: 01/15/17 17:49 Dose: 20 mg Ibuprofen (Motrin Tab) 400 mg PO Q6H PRN PRN Reason: Fever >100.4 F Last Admin: 01/15/17 17:49 Dose: 400 mg Isoniazid (Niazid) 300 mg PO DAILY [facility] Last Admin: 01/01/17 11:48 Dose: 300 mg Ketoconazole (Nizoral) 0 gm TOP BID [facility] Last Admin: 01/15/17 17:56 Dose: 1 applic Levothyroxine Sodium (Synthroid) 88 mcg PO DAILY@0630 [facility] Last Admin: 01/15/17 05:30 Dose: 88 mcg Ondansetron HCl (Zofran Inj) 4 mg IVP Q6H PRN PRN Reason: Nausea/Vomiting Pyridoxine HCl (Vitamin B6) 25 mg PO DAILY [facility] Last Admin: 01/15/17 09:32 Dose: 25 mg Saccharomyces Boulardii (Florastor) 250 mg PO BID [facility] Last Admin: 01/15/17 17:49 Dose: 250 mg Simethicone (Mylicon Chew Tab) 80 mg PO QID [facility] Last Admin: 01/15/17 17:49 Dose: 80 mg - Labs Labs: 01/15/17 06:36 01/15/17 06:36 - Constitutional Appears: No Acute Distress - Head Exam Head Exam: ATRAUMATIC, NORMOCEPHALIC - ENT Exam ENT Exam: Mucous Membranes Moist - Respiratory Exam Respiratory Exam: Decreased Breath Sounds - Cardiovascular Exam Cardiovascular Exam: +S1, +S2 - GI/Abdominal Exam GI & Abdominal Exam: Normal Bowel Sounds - Rectal Exam Rectal Exam: Deferred Assessment and Plan (1) Aspiration into lower respiratory tract Status: Acute (2) PPD+ (purified protein derivative positive) Status: Acute (3) Allergic drug rash due to anti-infective agent Status: Acute
[2017-01-15 22:20] LABS: RBC URINE 14 /hpf (0-3); URINE BACTERIA RARE (<OCC); URINE BILIRUBIN NEGATIVE (NEGATIVE); URINE BLOOD 1+ (NEGATIVE); URINE COLOR Yellow (YELLOW); URINE GLUCOSE (UA) NORMAL (Normal); URINE KETONE NEGATIVE (NEGATIVE); URINE LEUKOCYTE ESTERASE NEG Leu/uL (Negative); URINE PROTEIN 1+ mg/dL (NEGATIVE); URINE UROBILINOGEN NORMAL mg/dL (0.2-1.0); WBC URINE 3 /hpf (0-5)
[2017-01-16] MEDS: Albuterol-Ipratrop 3 mg / 0.5 (3 ml) UD INH SCH ×4 (01:08→19:26)
[2017-01-16] MEDS: Levothyroxine 88 MCG TAB PO SCH (05:46)
[2017-01-16 07:01] LABS: BASO % 0.6 % (0.0-2.0); EOS # 0.7 K/uL (0.0-0.7); EOS % 9.9 % (0.0-4.0); HEMATOCRIT 32.4 % (35.0-51.0); LYMPH # 0.9 K/uL (1.0-4.3); LYMPH % 12.5 % (20.0-40.0); MEAN CELL VOLUME 82.9 fL (80.0-94.0); MEAN CORPUSCULAR HEMOGLOBIN 27.5 pg (27.0-31.0); MEAN CORPUSCULAR HGB CONC 33.1 g/dL (33.0-37.0); MEAN PLATELET VOLUME 8.3 fL (7.2-11.7); MONO # 0.2 K/uL (0.0-0.8); MONO % 2.5 % (0.0-10.0); NRBC % 0.1 % (0.0-2.0); RED CELL DISTRIBUTION WIDTH 20.6 % (11.5-14.5); WHITE BLOOD COUNT 7.4 K/uL (4.8-10.8)
[2017-01-16 07:10] LABS: ALB/GLOB RATIO 0.5 (1.0-2.1); ALKALINE PHOSPHATASE 213 U/L (38-126); ALT/SGPT 95 U/L (21-72); AST/SGOT 167 U/L (17-59); BILIRUBIN,TOTAL < 0.1 mg/dL (0.2-1.3); BLOOD UREA NITROGEN 15 mg/dL (9-20); CALCIUM 7.1 mg/dl (8.6-10.4); CARBON DIOXIDE 29 mmol/L (22-30); CHLORIDE 98 mmol/L (98-107); GFR AFRICAN-AMERICAN > 60; GLUCOSE,RANDOM 72 mg/dL (75-110); MAGNESIUM 1.5 mg/dL (1.6-2.3); PHOSPHOROUS 4.4 mg/dL (2.5-4.5); POTASSIUM 4.1 mmol/L (3.6-5.2); SODIUM 132 mmol/L (132-148); TOTAL PROTEIN 6.3 g/dL (6.3-8.3)
[2017-01-16] MEDS: Simethicone 80 mg Chewtab PO SCH ×4 (09:33→21:45)
[2017-01-16] MEDS: Saccharomyces Boulardi 250 mg Cap PO SCH ×2 (09:34→18:10)
[2017-01-16] MEDS ORDERED: Magnesium Sulfate 1 gm in D5W 1 GM/100 ML BAG IVPB ONE ×2 (11:00→13:00)
--- NOTE | 2017-01-16 12:51 | CON ---
Neurologeurological consultation for patient Matthew Castano. : 1965 DOS: 01/02/2017 DOA: 01/01/2017 Room number: 654 Attending Physician: Alma Gresham MD Reason for consultation: Dizziness Chief Complaint: Patient was brought to [facility] with a Hx dizziness. From a neurological standpoint, I was called in to evaluate him for the management of dizziness. HPI: Mr. Castro is a 51 y/o right handed male presenting with dizziness upon waking up x 2 days. He notes his dizziness is associated with a ringing ear of the right side and is accompanied with N/V. At times, he loses his balance. Symptoms were persistent and the patient decided to come to hospital. The symptoms are not associated with any change in position. Even when keeps his eyes closed, the symptoms are persistent. No similar episodes have happened in the past. No Hx of double vision. No Hx of visual disturbances. No Hx of neck pain. Patient notes no recent change in medications. However, he admits he has been recently diagnosed with Tuberculosis because of a cough and a cold. Being treated with medication. PMHx: Diverticulosis. Hypothyroidism. Medications: Aspirin, Minocycline, Isoniazid, Vitamin B6 with Synthroid SHx: Denies smoking or ETOH use ROS: reviewed as per H&P Vital Signs: Blood Pressure: 107/65 Respiratory rate: 18 Temperature: 98.1 HR: 82 PE: Patient is examined by presence of paraprofessional interpreter. Neck: Supple, no meningismus. Kernig's sign and Brudzinski's sign are both negative. Skin: Patient seems to be sweating. Heart: Now irregular. Neuro: Patient is examined in the presence of an paraprofessional interpreter. He is awake, alert , and oriented to person, place and time. Speech is clear. Memory, repetition, comprehension normal. Cranial nerves intact. PEERL. No nystagmus. No facial deficits. Hearing is normal. Tongue is midline appearing. Bicep brachii reflexes 2+. Knee and ankle reflexes are all 2+, plantars pointing down. Cerebellum coordination intact. Gait test deferred at this time because nurse is sitting next to him drawing blood. Labs: WBC: 9.8 Hemoglobin: 11.1 Hematocrit: 34.6 Platelets: 428 Creatinine: 0.5 BUN: 14 Sodium: 133 Potassium: 4.2 Chloride: 101 Bicarbonate: 23 GFR > 60 Glucose: 138 EKG: Normal sinus rhythm. Course: MRI of brain reviewed, showing no acute stroke process. Patient has some signaling for periventricular ischemic changes, consistent with small vessel disease. Diagnosis: 1. Vestibular neuronitis, peripheral component. 2. No evidence for long tract sign, such as spinothalamic and spinocerebellar dysfunction. Plan: 1. Continue IV hydration. Patient can benefit from Meclizine as prn basis. 2. Patient should have Plavix to improve circulation, posterior cerebral artery distribution. 3. Consistent with abnormal MRI; patient is considered to be on antiplatelets. 4. The patient will follow up closely with Dr. Lee. JOESPH
--- NOTE | 2017-01-16 12:58 | CP.PCM.PN ---
<Kadi Garzon - Last Filed: 01/16/17 15:19> Subjective - Date & Time of Evaluation Date of Evaluation: 01/16/17 Time of Evaluation: 07:00 - Subjective Subjective: PGY-1, Medicine Note- Dr. Mccartney's Service Patient seen and examined at bedside and in no acute distress. Patient denies fevers and chills overnight. Patient did have a fever in the morning. Otherwise patient has no complaints. Patient denies headache, shortness of breath, chest pain, abdominal pain, nausea, vomiting, diarrhea, constipation. Objective - Vital Signs/Intake and Output Vital Signs (last 24 hours): Temp Pulse Resp BP Pulse Ox 99.4 F 60 20 99/74 L 100 01/16/17 09:37 01/16/17 09:37 01/16/17 07:16 01/16/17 09:37 01/16/17 07:16 Intake and Output: 01/16/17 01/16/17 06:59 18:59 Intake Total 560 Balance 560 - Medications Medications: Current Medications Albuterol/Ipratropium (Duoneb 3 Mg/0.5 Mg (3 Ml) Ud) 3 ml INH RQ6 [facility] Last Admin: 01/16/17 07:46 Dose: 3 ml Aspirin (Aspirin Chewable) 81 mg PO DAILY [facility] Last Admin: 01/16/17 09:33 Dose: 81 mg Clopidogrel Bisulfate (Plavix) 75 mg PO DAILY [facility] Last Admin: 01/16/17 09:34 Dose: 75 mg Diphenhydramine HCl (Benadryl) 50 mg PO Q8 PRN PRN Reason: Rash Docusate Sodium (Colace) 100 mg PO TID [facility] Last Admin: 01/16/17 09:34 Dose: 100 mg Famotidine (Pepcid) 20 mg PO BID [facility] Last Admin: 01/16/17 09:34 Dose: 20 mg Magnesium Sulfate/Dextrose (Magnesium Sulfate 1 Gm/100 Ml D5w) 1 gm in 100 mls @ 200 mls/hr IVPB ONCE ONE Stop: 01/16/17 13:24 Ibuprofen (Motrin Tab) 400 mg PO Q6H PRN PRN Reason: Fever >100.4 F Last Admin: 01/16/17 08:30 Dose: 400 mg Isoniazid (Niazid) 300 mg PO DAILY [facility] Last Admin: 01/01/17 11:48 Dose: 300 mg Ketoconazole (Nizoral) 0 gm TOP BID [facility] Last Admin: 01/16/17 09:35 Dose: 1 applic Levothyroxine Sodium (Synthroid) 88 mcg PO DAILY@0630 [facility] Last Admin: 01/16/17 05:46 Dose: 88 mcg Ondansetron HCl (Zofran Inj) 4 mg IVP Q6H PRN PRN Reason: Nausea/Vomiting Pyridoxine HCl (Vitamin B6) 25 mg PO DAILY [facility] Last Admin: 01/16/17 10:44 Dose: 25 mg Saccharomyces Boulardii (Florastor) 250 mg PO BID [facility] Last Admin: 01/16/17 09:34 Dose: 250 mg Simethicone (Mylicon Chew Tab) 80 mg PO QID [facility] Last Admin: 01/16/17 09:33 Dose: 80 mg - Labs Labs: 01/16/17 06:42 01/16/17 06:38 - Constitutional Appears: Well, Non-toxic, No Acute Distress - Head Exam Head Exam: ATRAUMATIC, NORMAL INSPECTION, NORMOCEPHALIC - Eye Exam Eye Exam: EOMI, Normal appearance, PERRL - ENT Exam ENT Exam: Mucous Membranes Moist, Normal Exam - Neck Exam Neck Exam: Full ROM - Respiratory Exam Respiratory Exam: Clear to Ausculation Bilateral, NORMAL BREATHING PATTERN - Cardiovascular Exam Cardiovascular Exam: REGULAR RHYTHM, RRR, +S1, +S2. absent: Gallop, Rubs, Murmur - GI/Abdominal Exam GI & Abdominal Exam: Soft, Normal Bowel Sounds. absent: Tenderness - Extremities Exam Extremities Exam: Full ROM, Normal Inspection. absent: Pedal Edema - Back Exam Back Exam: NORMAL INSPECTION. absent: rash noted - Neurological Exam Neurological Exam: Alert, Awake, Oriented x3 - Psychiatric Exam Psychiatric exam: Normal Affect, Normal Mood - Skin Skin Exam: Intact, Rash, Warm Additional comments: patchy macular erythematous rash on chest, abdomen, shoulders and upper thighs Assessment and Plan - Assessment and Plan (Free Text) Assessment: Leukocytosis Assessment & Plan: WBC on 01/15: 7.5, bands 23 * As per Dr. Calzada, repeat blood culture 01/15: negative for 24 hours * f/u procalcitonin WBC on 01/14: 8.7 WBC 9.6 on 01/13 CXR (01/06/17):hypoinflation, bronchovascular crowing, bibasilar atelectasis or infiltrates, probable trace bilateral pleural effusions as per Dr. Carias, patient put on isolation parameters CT/C/A/P (01/09/17): Segmental atelectasis with bronchiectasis bibasally. Scattered areas of thickening in intralobular septum in subpleural lung. DDX include interstitial pneumonia, chronic aspiration, sarcoid, connective tissue disease, cryptogenic organizing pneumoina, broncheoalveolar carcinoma. AFB 01/07: PRELIM - negative, 2nd AFB 01/07 - PRELIM - negative, AFB 01/03: PRELIM - negative AFB culture (01/06/17): No acid fast bacilli seen CRP >15 LDH>750 ESR (01/09/17) 101, (01/07/17) ESR 79 Legionella, Strep Pneumo (-), Mycoplasma pending procalcitonin<.05 dopplers of lower and upper extremities: negative except abnormal finding of right cephalic vein -aspirin 81mg daily HIV negative 01/11: blood and urine cultures no growth for 24 hours Diffuse Macular Rash possibly secondary to antibiotics as per ID, Dr. Carias, antibiotics stopped since cultures are negative, will continue to monitor as patient believes the rash started before he was hospitalized started on Ketoconazole cream for possible fungal infection Respiratory infection pneumonia v bronchiectasis Pending quantiferon test result - indeterminate AFB (-) x 4 Isonazid 300mg PO Daily started B6 25 mg PO daily (01/05) F/u with patient's PMD regarding TB diagnosis: * As per conversation with Dr. Pete Gresham and Dr. Stoll (who was covering for PMD Dr. Bran Klein [phone]) on 01/02/17 and he confirmed that patient was being treated with Isoniazid 300 mg PO 1x/day by Dr. Klein for TB Prophylaxis [employer] Engineer Dr. Barrow----> Help appreciated Imaging: CT chest: No significant interval change in the lungs since the previous exam. Interval slight increase in the size of the pleural effusion. Otherwise no significant interval change 01/01 Chest X-ray: Progressive bibasilar consolidations. Progressive infiltrates in this patient with underlying bibasilar bronchiectasis here is inferred. Inferolateral pleural effusions with pleural thickening Meropenem 1 gram IV Q 8hours (active since 01/04/17) Flagyl 500mg PO Q 8 hours (active since 01/05/17) Florastor 250mg PO bid Fever secondary to TB vs Aspiration pneumonia 01/14: tmax 102.7 01/13: 23:20 fever of 102.8 01/12: Tmax 103 at 22:40 01/12: fever of 102 at 7:35 f/u speech and swallow- although patient appears to be tolerating PO intake at this time, coughing was noted during his meal and patient reports that coughing increases while eating. Suggest a modified barium swallow to r/o aspiration modified barium swallow(01/13): no penetration or aspiration observed aspiration precautions 01/09: Afebrile overnight ID consult (Dr. Carias), help appreciated Tmax: 100.6 (01/01/17) Blood culture/ gram stain (01/01): (+) for gram positive cocci/ Coagulase negative staphylococcus blood culture(01/11): no growth for 48 hours urine culture (01/11): no growth blood culture (01/15): no growth for 24 hours Status: Acute Bacteremia ID Consult (Dr. Carias on board), help appreciated. Dr. Carias stopped antibiotics on 01/14 01/15: Repeat urine culture, follow up blood culture (01/15): negative for 24 hours Blood culture repeat on 01/02 negative for 72 hours, Urine Culture 01/01 negative Blood culture/ gram stain : (+) for gram positive cocci/ Coagulase negative staphylococcus Lactate: 734 (01/13) Status: Acute Pancreatic Lesion CT C/A/P (01/08/17): 8mm low density lesion in tail of pancreas. Report from CT indicated a 3mm lesion in the pancreatic tail. No old study to compare. Recommend further evaluation with pancreas dedicated MRI w MRCP (see full report ) Dr. Jonas, GI consulted: help appreciated MRCP: 4mm T1 hypo intense focus at pancreatic tail consistent with finding on recent CT, cannot be further characterized 2.2 cm T2 hyperintense T1 hypo intense lesion in right kidney consistent with previously demonstrated cyst CA 19-9: 01/12-10.3, 01/13- 10.1, 01/14- 11.6 -IR for biopsy of pancreas * Dr. Jacobson consulted, help appreciated, --lesion to small to biopsy, will continue to follow\ Superficial Thrombophlebitis * Venous doppler (01/08/17): acute thrombosis of right cephalic vein and no evidence of vein thrombosis with left upper extremity w excellent venous flow. * Venous doppler (01/08/17): No DVT nor SVT bilateral lower extremities * Aspirin 81mg PO daily Constipation Assessment & Plan: MRCP (01/14) showed severe constipation Miralax given which helped patient have a bowel movement Started on Colace 100 mg po TID Status: Acute Anemia Assessment & Plan: 01/16: 10.7/32.4 01/12: 10.7/ 32.1 Stable H/H on admission: 11.1/34.6 Iron studies: * Iron 75 * TIBC : 207 * % Saturation: 34 * Ferritin: 454 Monitor H/H Status: Acute History of hypothyroidism Assessment & Plan: Continue home medication: * Synthroid 88mcg PO daily * TSH normal Status: Acute Vertigo Resolved Vestibular Disequilibrium Right Ear Possibly secondary to drug-induced (Minocycline HCl - discontinued) * Zofran 4mg IV Q6H prn --> for associated nausea and vomiting Neurology consult ( Dr. Spears)---> Help appreciated As per neurology: * Hydration * Meclizine PRN * Plavix- patient to stay on plavix for 6 months * Out of bed * No further work up needed 01/02: HIV antibody 1 and 2 screen ordered: Negative RPR: Negative Imaging: ECHO: mild pulmonary hypertension. normal left ventricle, normal EF. CT head: No acute findings Brain MRI: No acute intracranial hemorrhage. Minimal of prolonged T2 signal changes seen in the periventricular white matter which may in part be related to CSF interface artifact however the possibility of some minimal concomitant chronic sequela of small vessel disease not excluded. Mild generalized volume loss. No enhancing masses. No evidence of unusual meningeal enhancement. Carotid doppler : Duplex scan does not suggest hemodynamically significant stenosis of the right and left extracranial carotid arteries Chest X-ray: Progressive bibasilar consolidations. Progressive infiltrates in this patient with underlying bibasilar bronchiectasis here is inferred. Inferolateral pleural effusions with pleural thickening -renoted Diarrhea Assessment & Plan: C dif toxin, stool culture, ova and parasite: all negative Flagyl stopped Status: Resolved Lower Extremity Edema Resolved Echo:mild pulmonary hypertension. normal left ventricle, normal EF. Lasix 20 mg once given 01/06 Edema of right ankle Assessment & Plan: Ankle X-ray: No fracture or arthritis. Mild circumferential soft tissue swelling bilaterally. Pending b/l Doppler official report Stopped fluids (01/03/17) Status: resolved Prophylactic measure Assessment & Plan: SCDs Ambulating Pepcid 20mg PO BID Florastor 250mg PO BID Status: Acute <Tanika Mccartney V - Last Filed: 01/16/17 18:41> Objective - Vital Signs/Intake and Output Vital Signs (last 24 hours): Temp Pulse Resp BP Pulse Ox 98 F 73 20 113/64 96 01/16/17 15:00 01/16/17 15:00 01/16/17 15:00 01/16/17 15:00 01/16/17 15:00 Intake and Output: 01/16/17 01/16/17 06:59 18:59 Intake Total 560 500 Balance 560 500 - Medications Medications: Current Medications Albuterol/Ipratropium (Duoneb 3 Mg/0.5 Mg (3 Ml) Ud) 3 ml INH RQ6 [facility] Last Admin: 01/16/17 13:58 Dose: 3 ml Aspirin (Aspirin Chewable) 81 mg PO DAILY [facility] Last Admin: 01/16/17 09:33 Dose: 81 mg Clopidogrel Bisulfate (Plavix) 75 mg PO DAILY [facility] Last Admin: 01/16/17 09:34 Dose: 75 mg Diphenhydramine HCl (Benadryl) 50 mg PO Q8 PRN PRN Reason: Rash Docusate Sodium (Colace) 100 mg PO TID [facility] Last Admin: 01/16/17 18:10 Dose: 100 mg Famotidine (Pepcid) 20 mg PO BID [facility] Last Admin: 01/16/17 18:11 Dose: 20 mg Ibuprofen (Motrin Tab) 400 mg PO Q6H PRN PRN Reason: Fever >100.4 F Last Admin: 01/16/17 08:30 Dose: 400 mg Isoniazid (Niazid) 300 mg PO DAILY [facility] Last Admin: 01/01/17 11:48 Dose: 300 mg Ketoconazole (Nizoral) 0 gm TOP BID [facility] Last Admin: 01/16/17 18:13 Dose: 1 applic Levothyroxine Sodium (Synthroid) 88 mcg PO DAILY@0630 [facility] Last Admin: 01/16/17 05:46 Dose: 88 mcg Ondansetron HCl (Zofran Inj) 4 mg IVP Q6H PRN PRN Reason: Nausea/Vomiting Pyridoxine HCl (Vitamin B6) 25 mg PO DAILY [facility] Last Admin: 01/16/17 10:44 Dose: 25 mg Saccharomyces Boulardii (Florastor) 250 mg PO BID [facility] Last Admin: 01/16/17 18:10 Dose: 250 mg Simethicone (Mylicon Chew Tab) 80 mg PO QID [facility] Last Admin: 01/16/17 18:11 Dose: 80 mg - Labs Labs: 01/16/17 06:42 01/16/17 06:38 Attending/Attestation - Attestation I have personally seen and examined this patient.: Yes I have fully participated in the care of the patient.: Yes I have reviewed all pertinent clinical information, including history, physical exam and plan: Yes Notes (Text): Patient seen, examined and case discussed with day-time resident. Patients Tmax: 101.7F this morning. possible drug induced rash? Patient ordered for repeat culture yesterday. Ordered for procalcitonin today F/u Pulmonary Infectious Disease (Dr. Calzada covering Dr. Carisa) will follow-up 1) Pneumonia with Bronchiectasis * Pulmonary (Dr. Barrow)-->help appreciated * CT Chest/Abdomen/Pelvis (01/08/17): segmental atelectais. small hiatal hernia, consoliation with bronchiectasis bibasally. Scattered areas of thicken of the intralobular septa in the subpleural lung. Differential diagnostic considerations desequamative interstitial pneumonia, chronic aspiration, sarcoid , connective tissue disase, cryptogenic organizing pneymonia, bronchoalveolar carcinoma. No previous studies are available for direct comparison. * Dr. Carias (infectious disease) on board-->persistent white count, placed back on isolation, collection of AFB * My colleague spoke with Dr. Stoll (who was covering for PMD Dr. Bran Klein [phone]) on 01/02/17 and he confirmed that patient was being treated with Isoniazid 300 mg PO 1x/day by Dr. Klein for TB Prophylaxis; on hold since * Negative Legionella * Mycobacterial Culture (01/06/17): no acid fast bacilli * Mycobacterial Culture (01/07/17): no acid fast bacilli * Mycobacterial Culture (01/07/17): no acid fast bacilli * Venous doppler (01/08/17): acute thrombosis of right cephalic vein and no evidence of vein thrombosis with left upper extremity w excellent venous flow. * Venous doppler (01/08/17): No DVT nor SVT bilateral lower extremities * Meropenem 1 gram IV Q 8hours (active since 01/04-01/14/17) * Flagyl 500mg PO Q 8 hours (active since 01/05-01/14/17) * Florastor 250mg PO bid * Ordered for Procalcitonin today given spikes in fever * Modified Barium Swallow (01/13/17): no penetration or aspiration observed. Refer to detailed report and recommendations of speech language pathology 2) Superficial Thrombophlebitis * Venous doppler (01/08/17): acute thrombosis of right cephalic vein and no evidence of vein thrombosis with left upper extremity w excellent venous flow. * Venous doppler (01/08/17): No DVT nor SVT bilateral lower extremities * Aspirin 81mg PO daily 3) Leukocytosis * Monitor white count-->normalized * ESR elevated * Ordered for repeat procalcitonin today * CT Chest/Abdomen/Pelvis (01/08/17): segmental atelectais. small hiatal hernia, consoliation with bronchiectasis bibasally. Scattered areas of thicken of the intralobular septa in the subpleural lung. Differential diagnostic considerations desequamative interstitial pneumonia, chronic aspiration, sarcoid , connective tissue disase, cryptogenic organizing pneymonia, bronchoalveolar carcinoma. No previous studies are available for direct comparison. * Completed: Meropenem 1 gram IV Q 8hours (active since 01/04-01/14/17) and Flagyl 500mg PO Q 8 hours (active since 01/05-01/14/17) * Venous doppler (01/08/17): acute thrombosis of right cephalic vein and no evidence of vein thrombosis with left upper extremity w excellent venous flow--> Aspirin 81mg PO daily * Venous doppler (01/08/17): No DVT nor SVT bilateral lower extremities * Negative C. dif; No ova and parasite * Florastor 250mg PO bid * Blood Culture 01/01/17 (1/2) that showed S. aureus and Coag Neg Strep: sensitive to levofloxcin and Vancomycin * Blood cultures 01/02/17: no growth after 5 days X2 * Blood culture 01/11/17: No growth after 5 days X2 * Urine culture 01/11/17: no growth (<1000 CFU/ml) * Blood culture 01/15/17: no growth After 24 hours X2 * Procalcitonin: <0.05--> repeat today * Mycobacterial Culture (01/06/17): no acid fast bacilli; no isolate after on 1 week * Mycobacterial Culture (01/07/17): no acid fast bacilli; no isolate after on 1 week * Mycobacterial Culture (01/07/17): no acid fast bacilli; no isolate after on 1 week 4) Pancreatic Lesion * GI (Dr. Jonas) on board-->help appreciated * MRCP (01/14/17): 4mm T1 hyodense T1 focus at pancreatic tail consistent on recent CT cannot be further characterized on this study. 2,2 ccm T2 hyperintense T1 hyointense lesion in the right kidney. Partial imaged severe constipation, extensive consolidation described in CT scans * CT abdomen/pelvis (01/08/17): 8mm low density lesion in the tail of the pancreatic tail * CA 19.9: normal 5). Vestibular Disequilibrium Right Ear * Neurology (Dr. Lee) on board-->help appreciated-->started on Plavix 75mg Po daily * Possible secondary to drug side effect (minocycline d/c on admission) * CT Head showed NO acute changes * MRI Brain showed NO hemorrhages/mass * Carotid Doppler showed NO significant stenosis 6). TB Prophylaxis * My colleague spoke with Dr. Stoll (who was covering for PMD Dr. Bran Klein [phone]) on 01/02/17 and he confirmed that patient was being treated with Isoniazid 300 mg PO 1x/day by Dr. Klein for TB Prophylaxis * My colleague spoke with [employer] Engineer Dr. Mckeon and he confirmed that patient was being treated prophylactically with Isoniazid-->not on consult * Dr. Carias (infectious disease) on board-->persistent white count, placed back on isolation, collection of AFB * INH on hold * Negative Legionella * Mycobacterial Culture (01/06/17): no acid fast bacilli; no isolate after on 1 week * Mycobacterial Culture (01/07/17): no acid fast bacilli; no isolate after on 1 week * Mycobacterial Culture (01/07/17): no acid fast bacilli; no isolate after on 1 week 7). Anemia secondary to ? * Iron studies were unremarkable * F/U with Hematology as an outpatient for further workup 8). Bacteremia * ID Dr. Carias help is greatly appreciated * CT Chest/Abdomen/Pelvis (01/08/17): segmental atelectais. small hiatal hernia, consoliation with bronchiectasis bibasally. Scattered areas of thicken of the intralobular septa in the subpleural lung. Differential diagnostic considerations desequamative interstitial pneumonia, chronic aspiration, sarcoid , connective tissue disase, cryptogenic organizing pneymonia, bronchoalveolar carcinoma. No previous studies are available for direct comparison. * Blood cultures (01/02/17): no growth after 5 days X2 * CT Chest showed no interval change when compared to 09/11/16: airspace opacities prominent bilateral lower lobes with associated bronchiectasis with slight increase in pleural effusion * Chest X Ray showed progressive bibasilar consolidation, progressive infiltrates with underlying bibasilar bronchiectasis with inferolateral pleural effusion * Blood Culture 01/01/17 (1/2) that showed S. aureus and Coag Neg Strep: sensitive to levofloxcin and Vancomycin * Blood cultures 01/02/17: no growth after 5 days X2 * Blood culture 01/11/17: No growth after 5 days X2 * Urine culture 01/11/17: no growth (<1000 CFU/ml) * Blood culture 01/15/17: no growth After 24 hours X2 * Procalcitonin: <0.05--> repeat today 9). Hx Hypothyroidism * Levothyroxine 88 mcg PO 1x/day 10). Possible ALL Reaction * mild redness over the neck and chest * On night of 01/01/17 patient apparently had redness of face and neck and upper chest and therefore Solumedrol, Pepcid, and Benadryl were given.The Solumedrol may have contributed initially. 11). Hx of Right Hand swelling * Right hand xray (01/11/17): no acute fracture; improved on f/u exam today 12.) Hx Ankle Edema * Right Ankle X Ray was unremarkable 13.). Hypokalemia * Monitor and replete 14). Prophylactic Measures * Pepcid 20 mg PO 2x/day * Zofran 4 mg IV Q6H PRN * Ambulatory
--- NOTE | 2017-01-16 17:27 | CP.PCM.CON ---
History of Present Illness - History of Present Illness History of Present Illness: 51 YO MALE ADMITTED WITH VERTIGO and NAUSEA AND VOMITING STATES THAT RASH DEVELOPED AFTER RX WITH LEVOFLOXACIN AT [facility] ? BEING TREATED FOR ASPIRATION PNEUMONIA CT chest consistent with bronchiectasis WAS RECENTLY TESTED + BY PPD BUT NO ACTIVE TB AND RECENT SMEARS NEGATIVE HAS HX HYPOTHYROIDISM AND ACNE Review of Systems - Review of Systems All systems: reviewed and no additional remarkable complaints except - Constitutional Constitutional: Fatigue Past Patient History - Infectious Disease Hx of Infectious Diseases: None - Past Medical History & Family History Past Medical History?: Yes - Past Social History Smoking Status: Never Smoked - CARDIAC Hx Cardiac Disorders: No - PULMONARY Hx Pneumonia: Yes - NEUROLOGICAL Hx Neurological Disorder: No - HEENT Hx HEENT Problems: No - RENAL Hx Chronic Kidney Disease: No - ENDOCRINE/METABOLIC Hx Hypothyroidism: Yes - HEMATOLOGICAL/ONCOLOGICAL Hx Blood Disorders: No - INTEGUMENTARY Hx Dermatological Problems: No Hx Eczema: Yes - MUSCULOSKELETAL/RHEUMATOLOGICAL Hx Falls: No - GASTROINTESTINAL Hx Gastrointestinal Disorders: No - GENITOURINARY/GYNECOLOGICAL Hx Genitourinary Disorders: No - PSYCHIATRIC Hx Substance Use: No - SURGICAL HISTORY Hx Surgeries: No - ANESTHESIA Hx Anesthesia: No Meds Allergies/Adverse Reactions: Allergies Allergy/AdvReac Type Severity Reaction Status Date / Time No Known Allergies Allergy Verified 01/01/17 05:53 - Medications Medications: Current Medications Albuterol/Ipratropium (Duoneb 3 Mg/0.5 Mg (3 Ml) Ud) 3 ml INH RQ6 [facility] Last Admin: 01/16/17 13:58 Dose: 3 ml Aspirin (Aspirin Chewable) 81 mg PO DAILY [facility] Last Admin: 01/16/17 09:33 Dose: 81 mg Clopidogrel Bisulfate (Plavix) 75 mg PO DAILY [facility] Last Admin: 01/16/17 09:34 Dose: 75 mg Diphenhydramine HCl (Benadryl) 50 mg PO Q8 PRN PRN Reason: Rash Docusate Sodium (Colace) 100 mg PO TID [facility] Last Admin: 01/16/17 13:39 Dose: 100 mg Famotidine (Pepcid) 20 mg PO BID [facility] Last Admin: 01/16/17 09:34 Dose: 20 mg Ibuprofen (Motrin Tab) 400 mg PO Q6H PRN PRN Reason: Fever >100.4 F Last Admin: 01/16/17 08:30 Dose: 400 mg Isoniazid (Niazid) 300 mg PO DAILY [facility] Last Admin: 01/01/17 11:48 Dose: 300 mg Ketoconazole (Nizoral) 0 gm TOP BID [facility] Last Admin: 01/16/17 09:35 Dose: 1 applic Levothyroxine Sodium (Synthroid) 88 mcg PO DAILY@0630 [facility] Last Admin: 01/16/17 05:46 Dose: 88 mcg Ondansetron HCl (Zofran Inj) 4 mg IVP Q6H PRN PRN Reason: Nausea/Vomiting Pyridoxine HCl (Vitamin B6) 25 mg PO DAILY [facility] Last Admin: 01/16/17 10:44 Dose: 25 mg Saccharomyces Boulardii (Florastor) 250 mg PO BID [facility] Last Admin: 01/16/17 09:34 Dose: 250 mg Simethicone (Mylicon Chew Tab) 80 mg PO QID [facility] Last Admin: 01/16/17 13:39 Dose: 80 mg Physical Exam - Constitutional Appears: Chronically Ill - Head Exam Head Exam: ATRAUMATIC, NORMOCEPHALIC - Eye Exam Eye Exam: PERRL. absent: Scleral icterus - ENT Exam ENT Exam: Mucous Membranes Dry - Neck Exam Neck exam: Negative for: Lymphadenopathy - Respiratory Exam Respiratory Exam: Decreased Breath Sounds, Rhonchi - Cardiovascular Exam Cardiovascular Exam: REGULAR RHYTHM, +S1, +S2 - GI/Abdominal Exam GI & Abdominal Exam: Diminished Bowel Sounds, Soft. absent: Tenderness - Rectal Exam Rectal Exam: Deferred - Exam Exam: NORMAL INSPECTION - Extremities Exam Extremities exam: Positive for: pedal pulses present. Negative for: calf tenderness, pedal edema, tenderness - Back Exam Back exam: absent: CVA tenderness (L), CVA tenderness (R) - Neurological Exam Neurological exam: Alert, CN II-XII Intact, Oriented x3, Reflexes Normal - Psychiatric Exam Psychiatric exam: Normal Mood - Skin Skin Exam: Dry, Erythema, Rash Results - Vital Signs Recent Vital Signs: Last Vital Signs Temp 98 F 01/16/17 15:00 Pulse 73 01/16/17 15:00 Resp 20 01/16/17 15:00 BP 113/64 01/16/17 15:00 Pulse Ox 96 01/16/17 15:00 - Labs Result Diagrams: 01/16/17 06:42 01/16/17 06:38 Labs: Laboratory Results - last 24 hr 01/15/17 01/16/17 01/16/17 21:55 06:38 06:42 WBC 7.4 RBC 3.91 L Hgb 10.7 L Hct 32.4 L MCV 82.9 MCH 27.5 MCHC 33.1 RDW 20.6 H Plt Count 236 MPV 8.3 Neut % (Auto) 74.5 Lymph % (Auto) 12.5 L [place] % (Auto) 2.5 Eos % (Auto) 9.9 H Baso % (Auto) 0.6 Neut # 5.5 Lymph # 0.9 L [place] # 0.2 Eos # 0.7 Baso # 0.0 ESR 93 H Sodium 132 Potassium 4.1 Chloride 98 Carbon Dioxide 29 Anion Gap 9 L BUN 15 Creatinine 0.6 L Est GFR ( Amer) > 60 Est GFR (Non-Af Amer) > 60 Random Glucose 72 L Calcium 7.1 L Phosphorus 4.4 Magnesium 1.5 L Total Bilirubin < 0.1 L AST 167 H ALT 95 H Alkaline Phosphatase 213 H D Total Protein 6.3 Albumin 2.2 L Globulin 4.1 H Albumin/Globulin Ratio 0.5 L Urine Color Yellow Urine Clarity Hazy Urine pH 5.0 Ur Specific [place] 1.019 Urine Protein 1+ H Urine Glucose (UA) Normal Urine Ketones Negative Urine Blood 1+ H Urine Nitrate Negative Urine Bilirubin Negative Urine Urobilinogen Normal Ur Leukocyte Esterase Neg Urine WBC (Auto) 3 Urine RBC (Auto) 14 H Ur Squamous Epith Cells < 1 Urine Bacteria Rare Assessment & Plan (1) Allergic drug rash due to anti-infective agent Status: Acute (2) Aspiration into lower respiratory tract Status: Acute (3) PPD+ (purified protein derivative positive) Status: Acute - Assessment and Plan (Free Text) Assessment: 51 YO MALE ADMITTED WITH NAUSEA AND VOMITING WELL RASH HAS BEEN TREATED FOR ASPIRATION PNEUMONITIS BY PULMONARY STATES THAT RASH STARTED AFTER RX WITH LEVOFLOXACIN? RECENT LFT'S NOTED CONSIDER GI EVAL CONSIDER HOLDING INH FOR NOW AND REFER TO TB CLINIC OUT PATIENT ALL SMEARS NEGATIVE CONSIDER TOPICAL STEROIDS AND BENADRYL FOR RASH
[2017-01-17] MEDS: Albuterol-Ipratrop 3 mg / 0.5 (3 ml) UD INH SCH ×2 (01:18→08:08)
--- NOTE | 2017-01-17 03:22 | CP.PCM.PN ---
<BlanquitaBrandan heard R - Last Filed: 01/17/17 03:20> Subjective - Date & Time of Evaluation Date of Evaluation: 01/17/17 Time of Evaluation: 06:10 - Subjective Subjective: Patient was seen and examined at bedside. He was shivering and covered in blankets up to his chin. He admits to fevers and chills for the last few days. He admits to cough productive with yellow phlegm. He c/o a rash that he's developed recently on his chest and face and contributed it to a recent antibiotic. The rest of the ROS prompts were negative. He denied cp, sob, n/v/d/ c, abd pain. Objective - Vital Signs/Intake and Output Vital Signs (last 24 hours): Temp Pulse Resp BP Pulse Ox 100.9 F H 115 H 20 103/62 96 01/16/17 23:17 01/17/17 00:28 01/16/17 23:17 01/16/17 23:17 01/16/17 23:17 Intake and Output: 01/16/17 01/17/17 18:59 06:59 Intake Total 500 400 Balance 500 400 - Medications Medications: Current Medications Albuterol/Ipratropium (Duoneb 3 Mg/0.5 Mg (3 Ml) Ud) 3 ml INH RQ6 [facility] Last Admin: 01/17/17 01:18 Dose: 3 ml Aspirin (Aspirin Chewable) 81 mg PO DAILY [facility] Last Admin: 01/16/17 09:33 Dose: 81 mg Clopidogrel Bisulfate (Plavix) 75 mg PO DAILY [facility] Last Admin: 01/16/17 09:34 Dose: 75 mg Diphenhydramine HCl (Benadryl) 50 mg PO Q8 PRN PRN Reason: Rash Docusate Sodium (Colace) 100 mg PO TID [facility] Last Admin: 01/16/17 18:10 Dose: 100 mg Famotidine (Pepcid) 20 mg PO BID [facility] Last Admin: 01/16/17 18:11 Dose: 20 mg Ibuprofen (Motrin Tab) 400 mg PO Q6H PRN PRN Reason: Fever >100.4 F Last Admin: 01/16/17 21:45 Dose: 400 mg Isoniazid (Niazid) 300 mg PO DAILY [facility] Last Admin: 01/01/17 11:48 Dose: 300 mg Ketoconazole (Nizoral) 0 gm TOP BID [facility] Last Admin: 01/16/17 18:13 Dose: 1 applic Levothyroxine Sodium (Synthroid) 88 mcg PO DAILY@0630 [facility] Last Admin: 01/16/17 05:46 Dose: 88 mcg Ondansetron HCl (Zofran Inj) 4 mg IVP Q6H PRN PRN Reason: Nausea/Vomiting Pyridoxine HCl (Vitamin B6) 25 mg PO DAILY [facility] Last Admin: 01/16/17 10:44 Dose: 25 mg Saccharomyces Boulardii (Florastor) 250 mg PO BID [facility] Last Admin: 01/16/17 18:10 Dose: 250 mg Simethicone (Mylicon Chew Tab) 80 mg PO QID [facility] Last Admin: 01/16/17 21:45 Dose: 80 mg - Labs Labs: 01/16/17 06:42 01/16/17 06:38 - Constitutional Appears: No Acute Distress - Head Exam Head Exam: NORMAL INSPECTION - Eye Exam Eye Exam: Normal appearance - ENT Exam ENT Exam: Mucous Membranes Moist - Neck Exam Neck Exam: Normal Inspection - Respiratory Exam Respiratory Exam: Clear to Ausculation Bilateral, NORMAL BREATHING PATTERN - Cardiovascular Exam Cardiovascular Exam: REGULAR RHYTHM, +S1, +S2. absent: Murmur - GI/Abdominal Exam GI & Abdominal Exam: Soft, Normal Bowel Sounds. absent: Tenderness - Rectal Exam Rectal Exam: Deferred - Extremities Exam Extremities Exam: Full ROM, Normal Capillary Refill, Normal Inspection. absent : Joint Swelling, Pedal Edema - Neurological Exam Neurological Exam: Alert, Awake - Psychiatric Exam Psychiatric exam: Normal Affect, Normal Mood - Skin Additional comments: patchy macular erythematous rash on chest, abdomen, shoulders and upper thighs Assessment and Plan - Assessment and Plan (Free Text) Assessment: Leukocytosis Assessment & Plan: WBC on 01/15: 7.5, bands 23 * As per Dr. Calzada, repeat blood culture 01/15: negative for 24 hours * f/u procalcitonin WBC on 01/14: 8.7 WBC 9.6 on 01/13 CXR (01/06/17):hypoinflation, bronchovascular crowing, bibasilar atelectasis or infiltrates, probable trace bilateral pleural effusions as per Dr. Carias, patient put on isolation parameters CT/C/A/P (01/09/17): Segmental atelectasis with bronchiectasis bibasally. Scattered areas of thickening in intralobular septum in subpleural lung. DDX include interstitial pneumonia, chronic aspiration, sarcoid, connective tissue disease, cryptogenic organizing pneumoina, broncheoalveolar carcinoma. AFB 01/07: PRELIM - negative, 2nd AFB 01/07 - PRELIM - negative, AFB 01/03: PRELIM - negative AFB culture (01/06/17): No acid fast bacilli seen CRP >15 LDH>750 ESR (01/09/17) 101, (01/07/17) ESR 79 Legionella, Strep Pneumo (-), Mycoplasma pending procalcitonin<.05 dopplers of lower and upper extremities: negative except abnormal finding of right cephalic vein -aspirin 81mg daily HIV negative 01/11: blood and urine cultures no growth for 24 hours Diffuse Macular Rash possibly secondary to antibiotics as per ID, Dr. Carias, antibiotics stopped since cultures are negative, will continue to monitor as patient believes the rash started before he was hospitalized started on Ketoconazole cream for possible fungal infection Respiratory infection pneumonia v bronchiectasis Pending quantiferon test result - indeterminate AFB (-) x 4 Isonazid 300mg PO Daily started B6 25 mg PO daily (01/05) F/u with patient's PMD regarding TB diagnosis: * As per conversation with Dr. Pete Gresham and Dr. Stoll (who was covering for PMD Dr. Bran Klein [phone]) on 01/02/17 and he confirmed that patient was being treated with Isoniazid 300 mg PO 1x/day by Dr. 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 Barrow----> Help appreciated Imaging: CT chest: No significant interval change in the lungs since the previous exam. Interval slight increase in the size of the pleural effusion. Otherwise no significant interval change 01/01 Chest X-ray: Progressive bibasilar consolidations. Progressive infiltrates in this patient with underlying bibasilar bronchiectasis here is inferred. Inferolateral pleural effusions with pleural thickening Meropenem 1 gram IV Q 8hours (active since 01/04/17) Flagyl 500mg PO Q 8 hours (active since 01/05/17) Florastor 250mg PO bid Fever secondary to TB vs Aspiration pneumonia 01/14: tmax 102.7 7/25: 23:20 fever of 102.8 01/12: Tmax 103 at 22:40 01/12: fever of 102 at 7:35 f/u speech and swallow- although patient appears to be tolerating PO intake at this time, coughing was noted during his meal and patient reports that coughing increases while eating. Suggest a modified barium swallow to r/o aspiration modified barium swallow(01/13): no penetration or aspiration observed aspiration precautions 01/09: Afebrile overnight ID consult (Dr. Carias), help appreciated Tmax: 100.6 (01/01/17) Blood culture/ gram stain (01/01): (+) for gram positive cocci/ Coagulase negative staphylococcus blood culture(01/11): no growth for 48 hours urine culture (01/11): no growth blood culture (01/15): no growth for 24 hours Status: Acute Bacteremia ID Consult (Dr. Carias on board), help appreciated. Dr. Carias stopped antibiotics on 01/14 01/15: Repeat urine culture, follow up blood culture (01/15): negative for 24 hours Blood culture repeat on 01/02 negative for 72 hours, Urine Culture 01/01 negative Blood culture/ gram stain : (+) for gram positive cocci/ Coagulase negative staphylococcus Lactate: 734 (01/13) Status: Acute Pancreatic Lesion CT C/A/P (01/08/17): 8mm low density lesion in tail of pancreas. Report from CT indicated a 3mm lesion in the pancreatic tail. No old study to compare. Recommend further evaluation with pancreas dedicated MRI w MRCP (see full report ) Dr. Jonas, GI consulted: help appreciated MRCP: 4mm T1 hypo intense focus at pancreatic tail consistent with finding on recent CT, cannot be further characterized 2.2 cm T2 hyperintense T1 hypo intense lesion in right kidney consistent with previously demonstrated cyst CA 19-9: 01/12-10.3, 01/13- 10.1, 01/14- 11.6 -IR for biopsy of pancreas * Dr. Jacobson consulted, help appreciated, --lesion to small to biopsy, will continue to follow\ Superficial Thrombophlebitis * Venous doppler (01/08/17): acute thrombosis of right cephalic vein and no evidence of vein thrombosis with left upper extremity w excellent venous flow. * Venous doppler (01/08/17): No DVT nor SVT bilateral lower extremities * Aspirin 81mg PO daily Constipation Assessment & Plan: MRCP (01/14) showed severe constipation Miralax given which helped patient have a bowel movement Started on Colace 100 mg po TID Status: Acute Anemia Assessment & Plan: 01/16: 10.7/32.4 01/12: 10.7/ 32.1 Stable H/H on admission: 11.1/34.6 Iron studies: * Iron 75 * TIBC : 207 * % Saturation: 34 * Ferritin: 454 Monitor H/H Status: Acute History of hypothyroidism Assessment & Plan: Continue home medication: * Synthroid 88mcg PO daily * TSH normal Status: Acute Vertigo Resolved Vestibular Disequilibrium Right Ear Possibly secondary to drug-induced (Minocycline HCl - discontinued) * Zofran 4mg IV Q6H prn --> for associated nausea and vomiting Neurology consult ( Dr. Spears)---> Help appreciated As per neurology: * Hydration * Meclizine PRN * Plavix- patient to stay on plavix for 6 months * Out of bed * No further work up needed 01/02: HIV antibody 1 and 2 screen ordered: Negative RPR: Negative Imaging: ECHO: mild pulmonary hypertension. normal left ventricle, normal EF. CT head: No acute findings Brain MRI: No acute intracranial hemorrhage. Minimal of prolonged T2 signal changes seen in the periventricular white matter which may in part be related to CSF interface artifact however the possibility of some minimal concomitant chronic sequela of small vessel disease not excluded. Mild generalized volume loss. No enhancing masses. No evidence of unusual meningeal enhancement. Carotid doppler : Duplex scan does not suggest hemodynamically significant stenosis of the right and left extracranial carotid arteries Chest X-ray: Progressive bibasilar consolidations. Progressive infiltrates in this patient with underlying bibasilar bronchiectasis here is inferred. Inferolateral pleural effusions with pleural thickening -renoted Diarrhea Assessment & Plan: C dif toxin, stool culture, ova and parasite: all negative Flagyl stopped Status: Resolved Lower Extremity Edema Resolved Echo:mild pulmonary hypertension. normal left ventricle, normal EF. Lasix 20 mg once given 01/06 Edema of right ankle Assessment & Plan: Ankle X-ray: No fracture or arthritis. Mild circumferential soft tissue swelling bilaterally. Pending b/l Doppler official report Stopped fluids (01/03/17) Status: resolved Prophylactic measure Assessment & Plan: SCDs Ambulating Pepcid 20mg PO BID Florastor 250mg PO BID Status: Acute <JluismiaTanika V - Last Filed: 01/17/17 23:41> Objective - Vital Signs/Intake and Output Vital Signs (last 24 hours): Temp Pulse Resp BP Pulse Ox 99.6 F 88 20 95/55 L 98 01/17/17 23:09 01/17/17 17:00 01/17/17 15:17 01/17/17 15:17 01/17/17 15:17 Intake and Output: 01/17/17 01/18/17 18:59 06:59 Intake Total 120 Balance 120 - Medications Medications: Current Medications Aspirin (Aspirin Chewable) 81 mg PO DAILY [facility] Last Admin: 01/17/17 10:00 Dose: 81 mg Docusate Sodium (Colace) 100 mg PO TID [facility] Last Admin: 01/17/17 18:27 Dose: 100 mg Famotidine (Pepcid) 20 mg PO BID [facility] Last Admin: 01/17/17 18:27 Dose: 20 mg Piperacillin Sod/Tazobactam (Sod 3.375 gm/ Sodium Chloride) 100 mls @ 200 mls/ hr IVPB Q6H [facility] Isoniazid (Niazid) 300 mg PO DAILY [facility] Last Admin: 01/01/17 11:48 Dose: 300 mg Ketoconazole (Nizoral) 0 gm TOP BID [facility] Last Admin: 01/17/17 20:37 Dose: Not Given Levothyroxine Sodium (Synthroid) 88 mcg PO DAILY@0630 [facility] Last Admin: 01/17/17 07:02 Dose: 88 mcg Ondansetron HCl (Zofran Inj) 4 mg IVP Q6H PRN PRN Reason: Nausea/Vomiting Pyridoxine HCl (Vitamin B6) 25 mg PO DAILY [facility] Last Admin: 01/17/17 10:01 Dose: 25 mg Saccharomyces Boulardii (Florastor) 250 mg PO BID [facility] Last Admin: 01/17/17 18:28 Dose: 250 mg Simethicone (Mylicon Chew Tab) 80 mg PO QID [facility] Last Admin: 01/17/17 21:11 Dose: 80 mg - Labs Labs: 01/17/17 07:33 01/17/17 07:33 Attending/Attestation - Attestation I have personally seen and examined this patient.: Yes I have fully participated in the care of the patient.: Yes I have reviewed all pertinent clinical information, including history, physical exam and plan: Yes Notes (Text): Patient seen, examined, and case discussed with day-time resident. Patient continues to spike fevers at night, Tmax: 101 F. Patient's urine culture negative for growth, and blood cultures negative X48 hours from 01/15/17. Patient's procalcitonin is mildly elevated suggesting bacterial cause. Patient's liver function test continue to rise; d/c motrin and benadryl. Patient started on Zosyn 3.375 IV q 6hours and Flagyl 500mg IV Q 8 hours to cover for aspiration pneumonia. Patient does not need bronchoscopy. Aspiration precautions.
[2017-01-17] MEDS: Levothyroxine 88 MCG TAB PO SCH (07:02)
[2017-01-17 07:45] LABS: BASO % 0.4 % (0.0-2.0); EOS # 0.8 K/uL (0.0-0.7); EOS % 9.3 % (0.0-4.0); HEMATOCRIT 30.6 % (35.0-51.0); LYMPH # 1.3 K/uL (1.0-4.3); LYMPH % 15.4 % (20.0-40.0); MEAN CELL VOLUME 82.8 fL (80.0-94.0); MEAN CORPUSCULAR HEMOGLOBIN 27.2 pg (27.0-31.0); MEAN CORPUSCULAR HGB CONC 32.8 g/dL (33.0-37.0); MEAN PLATELET VOLUME 8.2 fL (7.2-11.7); MONO # 0.3 K/uL (0.0-0.8); MONO % 3.2 % (0.0-10.0); RED CELL DISTRIBUTION WIDTH 20.1 % (11.5-14.5); WHITE BLOOD COUNT 8.4 K/uL (4.8-10.8)
[2017-01-17 08:21] LABS: CHLORIDE 98 mmol/L (98-107); POTASSIUM 3.9 mmol/L (3.6-5.2); SODIUM 133 mmol/L (132-148)
[2017-01-17 08:23] LABS: ALB/GLOB RATIO 0.5 (1.0-2.1); ALKALINE PHOSPHATASE 306 U/L (38-126); AST/SGOT 143 U/L (17-59); BILIRUBIN,TOTAL 0.4 mg/dL (0.2-1.3); CARBON DIOXIDE 25 mmol/L (22-30); GFR AFRICAN-AMERICAN > 60; TOTAL PROTEIN 6.8 g/dL (6.3-8.3)
[2017-01-17 08:24] LABS: ALT/SGPT 101 U/L (21-72); BLOOD UREA NITROGEN 12 mg/dL (9-20); CALCIUM 7.1 mg/dl (8.6-10.4); GLUCOSE,RANDOM 80 mg/dL (75-110); MAGNESIUM 1.4 mg/dL (1.6-2.3); PHOSPHOROUS 4.7 mg/dL (2.5-4.5)
[2017-01-17] MEDS: Simethicone 80 mg Chewtab PO SCH ×4 (10:00→21:11)
[2017-01-17] MEDS: Saccharomyces Boulardi 250 mg Cap PO SCH ×2 (10:00→18:28)
[2017-01-18] MEDS: metroNIDAZOLE IV 500 mg/100 ml 500 MG/100 ML BAG IVPB SCH ×2 (00:25→06:32)
[2017-01-18] MEDS: Piperacillin/Tazobact 3.375 GM in Sodium Chloride 100 ML IVPB SCH ×4 (01:18→17:32)
--- NOTE | 2017-01-18 01:33 | CP.PCM.PN ---
<Brandan Juares - Last Filed: 01/18/17 01:30> Subjective - Date & Time of Evaluation Date of Evaluation: 01/18/17 Time of Evaluation: 06:00 - Subjective Subjective: PGY-[address] Tanika Conley Medicine Service: Patient was seen lying comfortably in bed. He complained of fevers and chills today and still endorsed a productive cough with yellow phlegm. He also stated he had pain in his knees b/l - he says this is a new pain which was not present before. He was able to ambulate with minor pain. His macular rash on his torso and face has resolved. The rest of the ROS prompts were negative. He denied cp, sob, n/v/d/c, abd pain. Objective - Vital Signs/Intake and Output Vital Signs (last 24 hours): Temp Pulse Resp BP Pulse Ox 99.3 F 107 H 20 93/55 L 100 01/17/17 23:50 01/17/17 23:50 01/17/17 23:50 01/17/17 23:50 01/17/17 23:50 Intake and Output: 01/17/17 01/18/17 18:59 06:59 Intake Total 120 300 Balance 120 300 - Medications Medications: Current Medications Aspirin (Aspirin Chewable) 81 mg PO DAILY [facility] Last Admin: 01/17/17 10:00 Dose: 81 mg Docusate Sodium (Colace) 100 mg PO TID [facility] Last Admin: 01/17/17 18:27 Dose: 100 mg Famotidine (Pepcid) 20 mg PO BID [facility] Last Admin: 01/17/17 18:27 Dose: 20 mg Piperacillin Sod/Tazobactam (Sod 3.375 gm/ Sodium Chloride) 100 mls @ 200 mls/ hr IVPB Q6H [facility] Last Admin: 01/18/17 01:18 Dose: 200 mls/hr Metronidazole (Flagyl) 500 mg in 100 mls @ 100 mls/hr IVPB Q8 [facility] Last Admin: 01/18/17 00:25 Dose: 100 mls/hr Isoniazid (Niazid) 300 mg PO DAILY [facility] Last Admin: 01/01/17 11:48 Dose: 300 mg Ketoconazole (Nizoral) 0 gm TOP BID [facility] Last Admin: 01/17/17 20:37 Dose: Not Given Levothyroxine Sodium (Synthroid) 88 mcg PO DAILY@0630 [facility] Last Admin: 01/17/17 07:02 Dose: 88 mcg Ondansetron HCl (Zofran Inj) 4 mg IVP Q6H PRN PRN Reason: Nausea/Vomiting Pyridoxine HCl (Vitamin B6) 25 mg PO DAILY [facility] Last Admin: 01/17/17 10:01 Dose: 25 mg Saccharomyces Boulardii (Florastor) 250 mg PO BID [facility] Last Admin: 01/17/17 18:28 Dose: 250 mg Simethicone (Mylicon Chew Tab) 80 mg PO QID [facility] Last Admin: 01/17/17 21:11 Dose: 80 mg - Labs Labs: 01/17/17 07:33 01/17/17 07:33 - Constitutional Appears: No Acute Distress - Head Exam Head Exam: NORMAL INSPECTION - Eye Exam Eye Exam: Normal appearance - ENT Exam ENT Exam: Mucous Membranes Moist - Neck Exam Neck Exam: Normal Inspection - Respiratory Exam Respiratory Exam: Rales, NORMAL BREATHING PATTERN Additional comments: inspiratory crackles in right lower lobe - Cardiovascular Exam Cardiovascular Exam: REGULAR RHYTHM, +S1, +S2. absent: Murmur - GI/Abdominal Exam GI & Abdominal Exam: Soft, Normal Bowel Sounds. absent: Tenderness - Rectal Exam Rectal Exam: Deferred - Extremities Exam Extremities Exam: Normal Capillary Refill, Normal Inspection - Neurological Exam Neurological Exam: Alert, Awake - Psychiatric Exam Psychiatric exam: Normal Affect, Normal Mood - Skin Skin Exam: Dry, Intact, Normal Color, Warm Assessment and Plan - Assessment and Plan (Free Text) Assessment: Leukocytosis Assessment & Plan: WBC on 01/15: 7.5, bands 23 * As per Dr. Calzada, repeat blood culture 01/15: negative for 24 hours * f/u procalcitonin WBC on 01/14: 8.7 WBC 9.6 on 01/13 CXR (01/06/17):hypoinflation, bronchovascular crowing, bibasilar atelectasis or infiltrates, probable trace bilateral pleural effusions as per Dr. Carias, patient put on isolation parameters CT/C/A/P (01/09/17): Segmental atelectasis with bronchiectasis bibasally. Scattered areas of thickening in intralobular septum in subpleural lung. DDX include interstitial pneumonia, chronic aspiration, sarcoid, connective tissue disease, cryptogenic organizing pneumoina, broncheoalveolar carcinoma. AFB 01/07: PRELIM - negative, 2nd AFB 01/07 - PRELIM - negative, AFB 01/03: PRELIM - negative AFB culture (01/06/17): No acid fast bacilli seen CRP >15 LDH>750 ESR (01/09/17) 101, (01/07/17) ESR 79 Legionella, Strep Pneumo (-), Mycoplasma pending procalcitonin<.05 dopplers of lower and upper extremities: negative except abnormal finding of right cephalic vein -aspirin 81mg daily HIV negative 01/11: blood and urine cultures no growth for 24 hours Diffuse Macular Rash Resolved possibly secondary to antibiotics as per ID, Dr. Carias, antibiotics stopped since cultures are negative, will continue to monitor as patient believes the rash started before he was hospitalized started on Ketoconazole cream for possible fungal infection Respiratory infection pneumonia v bronchiectasis Patient started on Zosyn 3.375 IV q 6hours and Flagyl 500mg IV Q 8 hours to cover for aspiration pneumonia Patient does not need bronchoscopy. Pending quantiferon test result - indeterminate AFB (-) x 4 Isonazid 300mg PO Daily started B6 25 mg PO daily (01/05) F/u with patient's PMD regarding TB diagnosis: * As per conversation with Dr. Pete Gresham and Dr. Stoll (who was covering for PMD Dr. Bran Klein [phone]) on 01/02/17 and he confirmed that patient was being treated with Isoniazid 300 mg PO 1x/day by Dr. Klein for TB Prophylaxis Velocity Shooter Dr. Barrow----> Help appreciated Imaging: CT chest: No significant interval change in the lungs since the previous exam. Interval slight increase in the size of the pleural effusion. Otherwise no significant interval change 01/01 Chest X-ray: Progressive bibasilar consolidations. Progressive infiltrates in this patient with underlying bibasilar bronchiectasis here is inferred. Inferolateral pleural effusions with pleural thickening Meropenem 1 gram IV Q 8hours (active since 01/04/17) Flagyl 500mg PO Q 8 hours (active since 01/05/17) Florastor 250mg PO bid Fever secondary to TB vs Aspiration pneumonia 01/17: Tmax 101.6 01/14: tmax 102.7 01/13: 23:20 fever of 102.8 01/12: Tmax 103 at 22:40 01/12: fever of 102 at 7:35 f/u speech and swallow- although patient appears to be tolerating PO intake at this time, coughing was noted during his meal and patient reports that coughing increases while eating. Suggest a modified barium swallow to r/o aspiration modified barium swallow(01/13): no penetration or aspiration observed aspiration precautions 01/09: Afebrile overnight ID consult (Dr. Carias), help appreciated Tmax: 100.6 (01/01/17) Blood culture/ gram stain (01/01): (+) for gram positive cocci/ Coagulase negative staphylococcus blood culture(01/11): no growth for 48 hours urine culture (01/11): no growth blood culture (01/15): no growth for 24 hours Status: Acute Bacteremia ID Consult (Dr. Carias on board), help appreciated. Dr. Carias stopped antibiotics on 01/14 01/15: Repeat urine culture negative blood culture (01/15): negative for 48 hours Blood culture repeat on 01/02 negative for 72 hours, Urine Culture 01/01 negative Blood culture/ gram stain : (+) for gram positive cocci/ Coagulase negative staphylococcus Lactate: 734 (01/13) Status: Acute Pancreatic Lesion CT C/A/P (01/08/17): 8mm low density lesion in tail of pancreas. Report from CT indicated a 3mm lesion in the pancreatic tail. No old study to compare. Recommend further evaluation with pancreas dedicated MRI w MRCP (see full report ) Dr. Jonas, GI consulted: help appreciated MRCP: 4mm T1 hypo intense focus at pancreatic tail consistent with finding on recent CT, cannot be further characterized 2.2 cm T2 hyperintense T1 hypo intense lesion in right kidney consistent with previously demonstrated cyst CA 19-9: 01/12-10.3, 01/13- 10.1, 01/14- 11.6 -IR for biopsy of pancreas * Dr. Jacobson consulted, help appreciated, --lesion to small to biopsy, will continue to follow\ Superficial Thrombophlebitis * Venous doppler (01/08/17): acute thrombosis of right cephalic vein and no evidence of vein thrombosis with left upper extremity w excellent venous flow. * Venous doppler (01/08/17): No DVT nor SVT bilateral lower extremities * Aspirin 81mg PO daily Constipation Assessment & Plan: MRCP (01/14) showed severe constipation Miralax given which helped patient have a bowel movement Started on Colace 100 mg po TID Status: Acute Anemia Assessment & Plan: 01/16: 10.7/32.4 01/12: 10.7/ 32.1 Stable H/H on admission: 11.1/34.6 Iron studies: * Iron 75 * TIBC : 207 * % Saturation: 34 * Ferritin: 454 Monitor H/H Status: Acute History of hypothyroidism Assessment & Plan: Continue home medication: * Synthroid 88mcg PO daily * TSH normal Status: Acute Vertigo Resolved Vestibular Disequilibrium Right Ear Possibly secondary to drug-induced (Minocycline HCl - discontinued) * Zofran 4mg IV Q6H prn --> for associated nausea and vomiting Neurology consult ( Dr. Spears)---> Help appreciated As per neurology: * Hydration * Meclizine PRN * Plavix- patient to stay on plavix for 6 months * Out of bed * No further work up needed 01/02: HIV antibody 1 and 2 screen ordered: Negative RPR: Negative Imaging: ECHO: mild pulmonary hypertension. normal left ventricle, normal EF. CT head: No acute findings Brain MRI: No acute intracranial hemorrhage. Minimal of prolonged T2 signal changes seen in the periventricular white matter which may in part be related to CSF interface artifact however the possibility of some minimal concomitant chronic sequela of small vessel disease not excluded. Mild generalized volume loss. No enhancing masses. No evidence of unusual meningeal enhancement. Carotid doppler : Duplex scan does not suggest hemodynamically significant stenosis of the right and left extracranial carotid arteries Chest X-ray: Progressive bibasilar consolidations. Progressive infiltrates in this patient with underlying bibasilar bronchiectasis here is inferred. Inferolateral pleural effusions with pleural thickening -renoted Diarrhea Assessment & Plan: C dif toxin, stool culture, ova and parasite: all negative Flagyl stopped Status: Resolved Lower Extremity Edema Resolved Echo:mild pulmonary hypertension. normal left ventricle, normal EF. Lasix 20 mg once given 01/06 Edema of right ankle Assessment & Plan: Ankle X-ray: No fracture or arthritis. Mild circumferential soft tissue swelling bilaterally. Pending b/l Doppler official report Stopped fluids (01/03/17) Status: resolved Elevated LFTs 01/17: Patient's liver function test continue to rise; d/c motrin and benadryl Prophylactic measure Assessment & Plan: SCDs Ambulating Pepcid 20mg PO BID Florastor 250mg PO BID Status: Acute <Tanika Mccartney V - Last Filed: 01/18/17 13:20> Objective - Vital Signs/Intake and Output Vital Signs (last 24 hours): Temp Pulse Resp BP Pulse Ox 99.1 F 83 17 102/59 L 100 01/18/17 07:20 01/18/17 07:20 01/18/17 07:20 01/18/17 07:20 01/18/17 07:20 Intake and Output: 01/18/17 01/18/17 06:59 18:59 Intake Total 1450 Balance 1450 - Medications Medications: Current Medications Aspirin (Aspirin Chewable) 81 mg PO DAILY [facility] Last Admin: 01/18/17 10:38 Dose: 81 mg Docusate Sodium (Colace) 100 mg PO TID [facility] Last Admin: 01/18/17 10:34 Dose: 100 mg Famotidine (Pepcid) 20 mg PO BID [facility] Last Admin: 01/18/17 10:38 Dose: 20 mg Piperacillin Sod/Tazobactam (Sod 3.375 gm/ Sodium Chloride) 100 mls @ 200 mls/ hr IVPB Q6H [facility] Last Admin: 01/18/17 11:16 Dose: 200 mls/hr Isoniazid (Niazid) 300 mg PO DAILY [facility] Last Admin: 01/01/17 11:48 Dose: 300 mg Levothyroxine Sodium (Synthroid) 88 mcg PO DAILY@0630 [facility] Last Admin: 01/18/17 06:00 Dose: 88 mcg Ondansetron HCl (Zofran Inj) 4 mg IVP Q6H PRN PRN Reason: Nausea/Vomiting Saccharomyces Boulardii (Florastor) 250 mg PO BID [facility] Last Admin: 01/18/17 10:34 Dose: 250 mg - Labs Labs: 01/17/17 07:33 01/17/17 07:33 Attending/Attestation - Attestation I have personally seen and examined this patient.: Yes I have fully participated in the care of the patient.: Yes I have reviewed all pertinent clinical information, including history, physical exam and plan: Yes Notes (Text): Patient seen, examined, and case discussed with day-time resident. Patient continues to spike fevers at night, Tmax: 101.6 F. Patient started on IV abx yesterday to cover for aspiration pneumonia. D/c Flagyl given transaminitis. Patient's rash over neck and chest have resolved. Patient's urine culture negative for growth, and blood cultures (01/15/17) negative X48 hours. Monitor liver function tests. prior CT scan from 01/08/17 liver unremarkable no mass. Refrain from medications metabolized in the liver and tylenol. Nurse communication placed for ice bags to help reduce fever Patient started on Zosyn 3.375 IV q 6hours (active since 01/18/17).
[2017-01-18] MEDS: Levothyroxine 88 MCG TAB PO SCH (06:00)
[2017-01-18] MEDS: Saccharomyces Boulardi 250 mg Cap PO SCH ×2 (10:34→17:32)
[2017-01-18] MEDS: Simethicone 80 mg Chewtab PO SCH (10:38)
[2017-01-18] MEDS: Magnesium Sulfate 1 gm in D5W 1 GM/100 ML BAG IVPB SCH ×2 (12:09→13:49)
--- NOTE | 2017-01-18 16:28 | CP.PCM.PN ---
Subjective - Date & Time of Evaluation Date of Evaluation: 01/18/17 Time of Evaluation: 09:00 - Subjective Subjective: fever persists rash less still has elevated LFT' Objective - Vital Signs/Intake and Output Vital Signs (last 24 hours): Temp Pulse Resp BP Pulse Ox 99.1 F 87 17 102/59 L 100 01/18/17 07:20 01/18/17 16:13 01/18/17 07:20 01/18/17 07:20 01/18/17 07:20 Intake and Output: 01/18/17 01/18/17 06:59 18:59 Intake Total 1450 900 Balance 1450 900 - Medications Medications: Current Medications Aspirin (Aspirin Chewable) 81 mg PO DAILY [facility] Last Admin: 01/18/17 10:38 Dose: 81 mg Docusate Sodium (Colace) 100 mg PO TID [facility] Last Admin: 01/18/17 13:49 Dose: 100 mg Famotidine (Pepcid) 20 mg PO BID [facility] Last Admin: 01/18/17 10:38 Dose: 20 mg Piperacillin Sod/Tazobactam (Sod 3.375 gm/ Sodium Chloride) 100 mls @ 200 mls/ hr IVPB Q6H [facility] Last Admin: 01/18/17 11:16 Dose: 200 mls/hr Isoniazid (Niazid) 300 mg PO DAILY [facility] Last Admin: 01/01/17 11:48 Dose: 300 mg Levothyroxine Sodium (Synthroid) 88 mcg PO DAILY@0630 [facility] Last Admin: 01/18/17 06:00 Dose: 88 mcg Ondansetron HCl (Zofran Inj) 4 mg IVP Q6H PRN PRN Reason: Nausea/Vomiting Saccharomyces Boulardii (Florastor) 250 mg PO BID [facility] Last Admin: 01/18/17 10:34 Dose: 250 mg - Labs Labs: 01/17/17 07:33 01/17/17 07:33 - Constitutional Appears: Non-toxic, Chronically Ill - Head Exam Head Exam: NORMOCEPHALIC - Eye Exam Eye Exam: PERRL. absent: Scleral icterus - ENT Exam ENT Exam: Mucous Membranes Dry, Normal External Ear Exam - Neck Exam Neck Exam: absent: Lymphadenopathy - Respiratory Exam Respiratory Exam: Decreased Breath Sounds - Cardiovascular Exam Cardiovascular Exam: REGULAR RHYTHM - GI/Abdominal Exam GI & Abdominal Exam: Distended, Soft - Rectal Exam Rectal Exam: Deferred - Exam Exam: NORMAL INSPECTION - Extremities Exam Extremities Exam: absent: Calf Tenderness, Pedal Edema - Back Exam Back Exam: absent: CVA tenderness (L), CVA tenderness (R) - Neurological Exam Neurological Exam: Alert, Awake, Oriented x3 - Psychiatric Exam Psychiatric exam: Normal Mood - Skin Skin Exam: Dry Assessment and Plan (1) Allergic drug rash due to anti-infective agent Status: Acute (2) Aspiration into lower respiratory tract Status: Acute (3) PPD+ (purified protein derivative positive) Status: Acute - Assessment and Plan (Free Text) Plan: consider d/c INH as possible cause of LFT elevation all AFB smears neg thus far await TB quantiferon consider GI consult obtain sputum c/s - cont rx bronchiectasis / pneumonia with zosyn pendingg cultures
[2017-01-19] MEDS: Piperacillin/Tazobact 3.375 GM in Sodium Chloride 100 ML IVPB SCH ×5 (00:28→22:58)
[2017-01-19] MEDS: Levothyroxine 88 MCG TAB PO SCH (05:43)
[2017-01-19 06:29] LABS: BASO % 0.2 % (0.0-2.0); EOS # 0.8 K/uL (0.0-0.7); EOS % 5.7 % (0.0-4.0); HEMATOCRIT 29.1 % (35.0-51.0); LYMPH # 1.8 K/uL (1.0-4.3); LYMPH % 12.4 % (20.0-40.0); MEAN CELL VOLUME 81.7 fL (80.0-94.0); MEAN CORPUSCULAR HEMOGLOBIN 27.3 pg (27.0-31.0); MEAN CORPUSCULAR HGB CONC 33.4 g/dL (33.0-37.0); MEAN PLATELET VOLUME 7.7 fL (7.2-11.7); MONO # 0.4 K/uL (0.0-0.8); MONO % 3.1 % (0.0-10.0); RED CELL DISTRIBUTION WIDTH 20.6 % (11.5-14.5); WHITE BLOOD COUNT 14.3 K/uL (4.8-10.8)
[2017-01-19] MEDS ORDERED: Sodium Chloride 0.9% 1,000 ML IV SCH ×2 (06:30)
[2017-01-19 06:47] LABS: ALB/GLOB RATIO 0.5 (1.0-2.1); ALKALINE PHOSPHATASE 238 U/L (38-126); ALT/SGPT 85 U/L (21-72); AST/SGOT 88 U/L (17-59); BILIRUBIN,TOTAL 0.1 mg/dL (0.2-1.3); BLOOD UREA NITROGEN 13 mg/dL (9-20); CALCIUM 6.9 mg/dl (8.6-10.4); CARBON DIOXIDE 26 mmol/L (22-30); CHLORIDE 100 mmol/L (98-107); GFR AFRICAN-AMERICAN > 60; GLUCOSE,RANDOM 71 mg/dL (75-110); MAGNESIUM 1.7 mg/dL (1.6-2.3); POTASSIUM 3.7 mmol/L (3.6-5.2); SODIUM 132 mmol/L (132-148); TOTAL PROTEIN 6.1 g/dL (6.3-8.3)
--- NOTE | 2017-01-19 09:13 | RAD ---
HISTORY: shortness of breathe; pneumonia COMPARISON: 01/06/2017 FINDINGS: LUNGS: Bibasilar opacities common nonspecific. Infiltrate versus atelectasis. Vague opacity in upper right chest, nonspecific. This represents interval change from prior examination. PLEURA: Small bilateral pleural effusion. No pneumothorax. CARDIOVASCULAR: Normal. OSSEOUS STRUCTURES: No significant abnormalities. VISUALIZED UPPER ABDOMEN: Normal. OTHER FINDINGS: None. IMPRESSION: Bibasilar opacities, infiltrate versus atelectasis. Ill-defined opacity upper right lung, possible early infiltrate. Followup advised. Small bilateral pleural effusiono
[2017-01-19] MEDS: Saccharomyces Boulardi 250 mg Cap PO SCH ×2 (09:59→17:57)
[2017-01-19 10:44] LABS: ABG ALLEN TEST PO; DRAW SITE RRA
[2017-01-19] MEDS ORDERED: Iohexol 240 (50 ml) PO ONE (13:45)
--- NOTE | 2017-01-19 14:32 | CP.PCM.CON ---
<Bela Gresham - Last Filed: 01/19/17 14:45> History of Present Illness - History of Present Illness History of Present Illness: PGY4 GI Fellow Initial GI consult Matthew Castano is a 51M w. hx of TB who presented to the ER with complaints of dizziness, nausea, and vomiting. Pt has had a complicated hospital course and has been admitted for > 20 days. He is actively being treated for pneumonia. He presented with non-active TB, for which he was on INH as an oupt. Pt was referred to us by for incidental finding of pancreatic mass in the tail. The mass was first described in the CT abd/pelv and an MRCP was subsequently performed which reveal a 4mm pancreatic mass in the tail with no CBD or pancreatic duct dilation. Pt reports no abd pain. Denies any juandice or scleral icterus. He reports an unintentional weight loss of 30lbs. Pt states that he has normal BM at home with formed brown stools and denies any blood or mucus. Pt has never had a colonoscopy or EGD. There was a report of previous diarrhea, but at this time pt denies any current symptoms. He was found to have a sig fecal retention on CT and MRCP and was recently started on bowel regiment. PMhx: Recent diagnosed TB ( 3 weeks ago), Hypothyroidism, Chronic acne PSHx: None Social hx : stubbs, denies any Etoh, smoking or illicit drug use FHx: None, denies nay colon ca or other malignancy in the family Medications: Isonazid 300 mg po daily (Starte 3 weeks ago), Synthroid 88mcg PO daily, Minocycline HCL 100mg PO BID, Vit B6 Endo hx: none ROS: 10 point ROS was conducted and was neg other than what was stated above Past Patient History - Infectious Disease Hx of Infectious Diseases: None - Past Medical History & Family History Past Medical History?: Yes - Past Social History Smoking Status: Never Smoked - CARDIAC Hx Cardiac Disorders: No - PULMONARY Hx Pneumonia: Yes - NEUROLOGICAL Hx Neurological Disorder: No - HEENT Hx HEENT Problems: No - RENAL Hx Chronic Kidney Disease: No - ENDOCRINE/METABOLIC Hx Hypothyroidism: Yes - HEMATOLOGICAL/ONCOLOGICAL Hx Blood Disorders: No - INTEGUMENTARY Hx Dermatological Problems: No Hx Eczema: Yes - MUSCULOSKELETAL/RHEUMATOLOGICAL Hx Falls: No - GASTROINTESTINAL Hx Gastrointestinal Disorders: No - GENITOURINARY/GYNECOLOGICAL Hx Genitourinary Disorders: No - PSYCHIATRIC Hx Substance Use: No - SURGICAL HISTORY Hx Surgeries: No - ANESTHESIA Hx Anesthesia: No Meds Allergies/Adverse Reactions: Allergies Allergy/AdvReac Type Severity Reaction Status Date / Time levofloxacin Allergy RASH Verified 01/17/17 07:47 - Medications Medications: Current Medications Aspirin (Aspirin Chewable) 81 mg PO DAILY [facility] Last Admin: 01/19/17 09:59 Dose: 81 mg Docusate Sodium (Colace) 100 mg PO TID [facility] Last Admin: 01/19/17 13:40 Dose: 100 mg Famotidine (Pepcid) 20 mg PO BID [facility] Last Admin: 01/19/17 09:59 Dose: 20 mg Piperacillin Sod/Tazobactam (Sod 3.375 gm/ Sodium Chloride) 100 mls @ 200 mls/ hr IVPB Q6H [facility] Last Admin: 01/19/17 10:51 Dose: 200 mls/hr Sodium Chloride (Sodium Chloride 0.9%) 1,000 mls @ 50 mls/hr IV .Q20H [facility] Last Admin: 01/19/17 06:31 Dose: 50 mls/hr Ibuprofen (Motrin Tab) 400 mg PO Q6H PRN PRN Reason: Fever >100.4 F Last Admin: 01/19/17 12:35 Dose: 400 mg Levothyroxine Sodium (Synthroid) 88 mcg PO DAILY@0630 [facility] Last Admin: 01/19/17 05:43 Dose: 88 mcg Ondansetron HCl (Zofran Inj) 4 mg IVP Q6H PRN PRN Reason: Nausea/Vomiting Saccharomyces Boulardii (Florastor) 250 mg PO BID [facility] Last Admin: 01/19/17 09:59 Dose: 250 mg Physical Exam - Constitutional Appears: Non-toxic, No Acute Distress - Head Exam Head Exam: ATRAUMATIC, NORMOCEPHALIC - Eye Exam Eye Exam: Normal appearance - ENT Exam ENT Exam: Mucous Membranes Moist, Normal Exam - Neck Exam Neck exam: Positive for: Normal Inspection - Respiratory Exam Respiratory Exam: Clear to Auscultation Bilateral, NORMAL BREATHING PATTERN. absent: Rales, Rhonchi, Wheezes - Cardiovascular Exam Cardiovascular Exam: REGULAR RHYTHM, +S1, +S2 - GI/Abdominal Exam GI & Abdominal Exam: Normal Bowel Sounds, Soft. absent: Distended, Firm, Guarding, Organomegaly, Pulsatile Mass, Rebound, Rigid, Tenderness - Extremities Exam Extremities exam: Positive for: normal inspection - Neurological Exam Neurological exam: Alert, Oriented x3 - Psychiatric Exam Psychiatric exam: Normal Affect, Normal Mood - Skin Skin Exam: Dry, Normal Color, Urticaria, Warm Results - Vital Signs Recent Vital Signs: Last Vital Signs Temp 100.2 F H 01/19/17 12:28 Pulse 92 H 01/19/17 12:28 Resp 22 01/19/17 12:28 BP 108/59 L 01/19/17 12:28 Pulse Ox 99 01/19/17 12:28 - Labs Result Diagrams: 01/19/17 06:17 01/19/17 06:17 Labs: Laboratory Results - last 24 hr 01/19/17 01/19/17 01/19/17 06:17 06:17 06:22 WBC 14.3 H D RBC 3.56 L Hgb 9.7 L Hct 29.1 L MCV 81.7 MCH 27.3 MCHC 33.4 RDW 20.6 H Plt Count 309 MPV 7.7 Neut % (Auto) 78.6 H Lymph % (Auto) 12.4 L Garrett % (Auto) 3.1 Eos % (Auto) 5.7 H Baso % (Auto) 0.2 Neut # 11.2 H Lymph # 1.8 Garrett # 0.4 Eos # 0.8 H Baso # 0.0 Puncture Site pCO2 pO2 HCO3 ABG pH ABG Total CO2 ABG O2 Saturation ABG Base Excess Jim Test ABG Potassium A-a O2 Difference Respiratory Index Glucose Lactate FiO2 Sodium 132 Potassium 3.7 Chloride 100 Carbon Dioxide 26 Anion Gap 10 BUN 13 Creatinine 0.6 L Est GFR ( Amer) > 60 Est GFR (Non-Af Amer) > 60 POC Glucose (mg/dL) 73 Random Glucose 71 L Calcium 6.9 L Magnesium 1.7 Total Bilirubin 0.1 L AST 88 H D ALT 85 H Alkaline Phosphatase 238 H D Total Protein 6.1 L Albumin 2.1 L Globulin 4.0 H Albumin/Globulin Ratio 0.5 L Arterial Blood Potassium 01/19/17 10:41 WBC RBC Hgb Hct MCV MCH MCHC RDW Plt Count MPV Neut % (Auto) Lymph % (Auto) Garrett % (Auto) Eos % (Auto) Baso % (Auto) Neut # Lymph # Garrett # Eos # Baso # Puncture Site Rra pCO2 31 L pO2 93 HCO3 27.3 ABG pH 7.52 H ABG Total CO2 26.3 ABG O2 Saturation 100.2 H ABG Base Excess 3.0 Jim Test Po ABG Potassium 3.8 A-a O2 Difference 18.0 Respiratory Index 0.2 Glucose 93 Lactate 0.9 FiO2 21.0 Sodium 136.0 Potassium Chloride 110.0 H Carbon Dioxide Anion Gap BUN Creatinine Est GFR ( Amer) Est GFR (Non-Af Amer) POC Glucose (mg/dL) Random Glucose Calcium Magnesium Total Bilirubin AST ALT Alkaline Phosphatase Total Protein Albumin Globulin Albumin/Globulin Ratio Arterial Blood Potassium 3.8 Assessment & Plan - Assessment and Plan (Free Text) Assessment: Matthew Castano is a 51M w/ hx of hypothyroid, Tb who presents to the Ed with dizziness, nausea, and vomiting. He had had a complicated hospital course and is being actively tx for PNA. An incidental finding of pancreatic tail mass was found on CT abd. MRCP was performed to further eval this leasion and confirmed a 4mm mass. Assessment: Pancreatic tail mass Unintentional weight loss Transaminemia Constipation Anemia PNA Plan: spoke w/ Dr. Lowe, will tenatively schedule the pt for Thu 1pm for EUS NPO after midnight on Hold all anticoag the night prior Imaging reviewed with Dr Lowe, and confirmed lesion in the tail in MRCP. MRCP had some motion artifact, will order a CT abd w/ pancreus protocol to further define the lesion. Risks vs benefits were explained to the pt, and agrees with proceeding with EUS knowing these risks would defer recommendations about constipation and transaminemia to primary GI Dr. Jonas Thanks you for the consult and please contact us for any additional questions. D/W Dr. Lowe <Long Lowe - Last Filed: 01/19/17 17:43> Meds - Medications Medications: Current Medications Aspirin (Aspirin Chewable) 81 mg PO DAILY [facility] Last Admin: 01/19/17 09:59 Dose: 81 mg Docusate Sodium (Colace) 100 mg PO TID [facility] Last Admin: 01/19/17 13:40 Dose: 100 mg Famotidine (Pepcid) 20 mg PO BID [facility] Last Admin: 01/19/17 09:59 Dose: 20 mg Piperacillin Sod/Tazobactam (Sod 3.375 gm/ Sodium Chloride) 100 mls @ 200 mls/ hr IVPB Q6H [facility] Last Admin: 01/19/17 10:51 Dose: 200 mls/hr Sodium Chloride (Sodium Chloride 0.9%) 1,000 mls @ 50 mls/hr IV .Q20H [facility] Last Admin: 01/19/17 06:31 Dose: 50 mls/hr Ibuprofen (Motrin Tab) 400 mg PO Q6H PRN PRN Reason: Fever >100.4 F Last Admin: 01/19/17 12:35 Dose: 400 mg Levothyroxine Sodium (Synthroid) 88 mcg PO DAILY@0630 [facility] Last Admin: 01/19/17 05:43 Dose: 88 mcg Ondansetron HCl (Zofran Inj) 4 mg IVP Q6H PRN PRN Reason: Nausea/Vomiting Saccharomyces Boulardii (Florastor) 250 mg PO BID [facility] Last Admin: 01/19/17 09:59 Dose: 250 mg Results - Vital Signs Recent Vital Signs: Last Vital Signs Temp 98.3 F 01/19/17 15:15 Pulse 69 01/19/17 15:15 Resp 20 01/19/17 15:15 BP 90/57 L 01/19/17 15:15 Pulse Ox 100 01/19/17 15:15 - Labs Result Diagrams: 01/19/17 06:17 01/19/17 06:17 Labs: Laboratory Results - last 24 hr 01/19/17 01/19/17 01/19/17 06:17 06:17 06:22 WBC 14.3 H D RBC 3.56 L Hgb 9.7 L Hct 29.1 L MCV 81.7 MCH 27.3 MCHC 33.4 RDW 20.6 H Plt Count 309 MPV 7.7 Neut % (Auto) 78.6 H Lymph % (Auto) 12.4 L Garrett % (Auto) 3.1 Eos % (Auto) 5.7 H Baso % (Auto) 0.2 Neut # 11.2 H Lymph # 1.8 Garrett # 0.4 Eos # 0.8 H Baso # 0.0 Puncture Site pCO2 pO2 HCO3 ABG pH ABG Total CO2 ABG O2 Saturation ABG Base Excess Jim Test ABG Potassium A-a O2 Difference Respiratory Index Glucose Lactate FiO2 Sodium 132 Potassium 3.7 Chloride 100 Carbon Dioxide 26 Anion Gap 10 BUN 13 Creatinine 0.6 L Est GFR ( Amer) > 60 Est GFR (Non-Af Amer) > 60 POC Glucose (mg/dL) 73 Random Glucose 71 L Calcium 6.9 L Magnesium 1.7 Total Bilirubin 0.1 L AST 88 H D ALT 85 H Alkaline Phosphatase 238 H D Total Protein 6.1 L Albumin 2.1 L Globulin 4.0 H Albumin/Globulin Ratio 0.5 L Arterial Blood Potassium 01/19/17 01/19/17 10:41 17:01 WBC RBC Hgb Hct MCV MCH MCHC RDW Plt Count MPV Neut % (Auto) Lymph % (Auto) Garrett % (Auto) Eos % (Auto) Baso % (Auto) Neut # Lymph # Garrett # Eos # Baso # Puncture Site Rra pCO2 31 L pO2 93 HCO3 27.3 ABG pH 7.52 H ABG Total CO2 26.3 ABG O2 Saturation 100.2 H ABG Base Excess 3.0 Jim Test Po ABG Potassium 3.8 A-a O2 Difference 18.0 Respiratory Index 0.2 Glucose 93 Lactate 0.9 FiO2 21.0 Sodium 136.0 Potassium Chloride 110.0 H Carbon Dioxide Anion Gap BUN Creatinine Est GFR ( Amer) Est GFR (Non-Af Amer) POC Glucose (mg/dL) 82 Random Glucose Calcium Magnesium Total Bilirubin AST ALT Alkaline Phosphatase Total Protein Albumin Globulin Albumin/Globulin Ratio Arterial Blood Potassium 3.8 Attending/Attestation - Attestation I have personally seen and examined this patient.: Yes I have fully participated in the care of the patient.: Yes I have reviewed all pertinent clinical information: Yes Notes (Text): 01/19/17 17:42 51 year old male with possible pancreatic mass on MRI noted incidentally. 1. Pancreatic mass Plan: recommend pancreatic protocol CT for further evaluation -consideration of eus after CT reviewed -otherwise as above
--- NOTE | 2017-01-19 15:31 | CP.PCM.PN ---
<Juan Francisco Gonzales - Last Filed: 01/19/17 15:36> Subjective - Date & Time of Evaluation Date of Evaluation: 01/19/17 Time of Evaluation: 15:24 - Subjective Subjective: PGY-[address] Mccartney HPI: Patient was seen and examined at bedside. Resting comfortably in bed. NAD. Patient states he is feeling well with no complaints at this time. Denies any chest pain, palpitations, SOB, n/v/d, abdominal pain, dizziness, lightheadedness , BEAVERS. Objective - Vital Signs/Intake and Output Vital Signs (last 24 hours): Temp Pulse Resp BP Pulse Ox 100.2 F H 92 H 22 108/59 L 99 01/19/17 12:28 01/19/17 12:28 01/19/17 12:28 01/19/17 12:28 01/19/17 12:28 Intake and Output: 01/19/17 01/19/17 06:59 18:59 Intake Total 1320 Balance 1320 - Medications Medications: Current Medications Aspirin (Aspirin Chewable) 81 mg PO DAILY [facility] Last Admin: 01/19/17 09:59 Dose: 81 mg Docusate Sodium (Colace) 100 mg PO TID [facility] Last Admin: 01/19/17 13:40 Dose: 100 mg Famotidine (Pepcid) 20 mg PO BID [facility] Last Admin: 01/19/17 09:59 Dose: 20 mg Piperacillin Sod/Tazobactam (Sod 3.375 gm/ Sodium Chloride) 100 mls @ 200 mls/ hr IVPB Q6H [facility] Last Admin: 01/19/17 10:51 Dose: 200 mls/hr Sodium Chloride (Sodium Chloride 0.9%) 1,000 mls @ 50 mls/hr IV .Q20H [facility] Last Admin: 01/19/17 06:31 Dose: 50 mls/hr Ibuprofen (Motrin Tab) 400 mg PO Q6H PRN PRN Reason: Fever >100.4 F Last Admin: 01/19/17 12:35 Dose: 400 mg Levothyroxine Sodium (Synthroid) 88 mcg PO DAILY@0630 [facility] Last Admin: 01/19/17 05:43 Dose: 88 mcg Ondansetron HCl (Zofran Inj) 4 mg IVP Q6H PRN PRN Reason: Nausea/Vomiting Saccharomyces Boulardii (Florastor) 250 mg PO BID [facility] Last Admin: 01/19/17 09:59 Dose: 250 mg - Labs Labs: 01/19/17 06:17 01/19/17 06:17 - Constitutional Appears: Well, No Acute Distress - Eye Exam Eye Exam: EOMI - ENT Exam ENT Exam: Mucous Membranes Moist - Respiratory Exam Respiratory Exam: Rhonchi Additional comments: b/l lower lobes - Cardiovascular Exam Cardiovascular Exam: REGULAR RHYTHM - GI/Abdominal Exam GI & Abdominal Exam: Soft. absent: Distended, Tenderness - Neurological Exam Neurological Exam: Altered Assessment and Plan - Assessment and Plan (Free Text) Assessment: Leukocytosis Assessment & Plan: WBC on 01/15: 7.5, bands 23 * As per Dr. Calzada, repeat blood culture 01/15: negative for 24 hours WBC on 01/14: 8.7 WBC 9.6 on 01/13 CXR (01/06/17):hypoinflation, bronchovascular crowing, bibasilar atelectasis or infiltrates, probable trace bilateral pleural effusions as per Dr. Carias, patient put on isolation parameters CT/C/A/P (01/09/17): Segmental atelectasis with bronchiectasis bibasally. Scattered areas of thickening in intralobular septum in subpleural lung. DDX include interstitial pneumonia, chronic aspiration, sarcoid, connective tissue disease, cryptogenic organizing pneumoina, broncheoalveolar carcinoma. AFB 01/07: PRELIM - negative, 2nd AFB 01/07 - PRELIM - negative, AFB 01/03: PRELIM - negative AFB culture (01/06/17): No acid fast bacilli seen CRP >15 LDH>750 ESR (01/09/17) 101, (01/07/17) ESR 79 Legionella, Strep Pneumo (-), Mycoplasma pending procalcitonin<.05 dopplers of lower and upper extremities: negative except abnormal finding of right cephalic vein -aspirin 81mg daily HIV negative 01/11: blood and urine cultures no growth for 24 hours Diffuse Macular Rash Resolved possibly secondary to antibiotics as per ID, Dr. Carias, antibiotics stopped since cultures are negative, will continue to monitor as patient believes the rash started before he was hospitalized started on Ketoconazole cream for possible fungal infection Respiratory infection pneumonia v bronchiectasis Patient started on Zosyn 3.375 IV q 6hours and Flagyl 500mg IV Q 8 hours to cover for aspiration pneumonia Patient does not need bronchoscopy. Pending quantiferon test result - indeterminate AFB (-) x 4 Isonazid 300mg PO Daily started B6 25 mg PO daily (01/05) F/u with patient's PMD regarding TB diagnosis: * As per conversation with Dr. Pete Gresham and Dr. Stoll (who was covering for PMD Dr. 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 Interval slight increase in the size of the pleural effusion. Otherwise no significant interval change 01/01 Chest X-ray: Progressive bibasilar consolidations. Progressive infiltrates in this patient with underlying bibasilar bronchiectasis here is inferred. Inferolateral pleural effusions with pleural thickening Meropenem 1 gram IV Q 8hours (active since 01/04/17) Flagyl 500mg PO Q 8 hours (active since 01/05/17) Florastor 250mg PO bid 01/19 CXR: bibasilar opacities, opacitiy in Right upper lobe, small b/l pleural effusion Fever secondary to TB vs Aspiration pneumonia Add hypothermic blanket 01/19: Tmax 100.2 01/17: Tmax 101.6 01/14: tmax 102.7 01/13: 23:20 fever of 102.8 01/12: Tmax 103 at 22:40 01/12: fever of 102 at 7:35 f/u speech and swallow- although patient appears to be tolerating PO intake at this time, coughing was noted during his meal and patient reports that coughing increases while eating. Suggest a modified barium swallow to r/o aspiration modified barium swallow(01/13): no penetration or aspiration observed aspiration precautions 01/09: Afebrile overnight ID consult (Dr. Carias), help appreciated Tmax: 100.6 (01/01/17) Blood culture/ gram stain (01/01): (+) for gram positive cocci/ Coagulase negative staphylococcus blood culture(01/11): no growth for 48 hours urine culture (01/11): no growth blood culture (01/15): no growth for 24 hours Status: Acute Bacteremia ID Consult (Dr. Carias on board), help appreciated. Dr. Carias stopped antibiotics on 01/14 01/19: blood cultures pending 01/15: Repeat urine culture negative blood culture (01/15): negative for 48 hours Blood culture repeat on 01/02 negative for 72 hours, Urine Culture 01/01 negative Blood culture/ gram stain : (+) for gram positive cocci/ Coagulase negative staphylococcus Lactate: 734 (01/13) Status: Acute Pancreatic Lesion 01/19: Dr. Lowe will do EUS Thursday to evaluate pancreatic tail mass, stop anticoag and NPO Thursday night CT C/A/P (01/08/17): 8mm low density lesion in tail of pancreas. Report from CT indicated a 3mm lesion in the pancreatic tail. No old study to compare. Recommend further evaluation with pancreas dedicated MRI w MRCP (see full report ) Dr. Jonas, GI consulted: help appreciated MRCP: 4mm T1 hypo intense focus at pancreatic tail consistent with finding on recent CT, cannot be further characterized 2.2 cm T2 hyperintense T1 hypo intense lesion in right kidney consistent with previously demonstrated cyst CA 19-9: 01/12-10.3, 01/13- 10.1, 01/14- 11.6 -IR for biopsy of pancreas * Dr. Jacobson consulted, help appreciated, --lesion to small to biopsy, will continue to follow Superficial Thrombophlebitis * Venous doppler (01/08/17): acute thrombosis of right cephalic vein and no evidence of vein thrombosis with left upper extremity w excellent venous flow. * Venous doppler (01/08/17): No DVT nor SVT bilateral lower extremities * Aspirin 81mg PO daily Constipation Assessment & Plan: MRCP (01/14) showed severe constipation Miralax given which helped patient have a bowel movement Started on Colace 100 mg po TID Status: Acute Anemia Assessment & Plan: 01/19: 9.7/29 01/16: 10.7/32.4 01/12: 10.7/ 32.1 Stable H/H on admission: 11.1/34.6 Iron studies: * Iron 75 * TIBC : 207 * % Saturation: 34 * Ferritin: 454 Monitor H/H Status: Acute History of hypothyroidism Assessment & Plan: Continue home medication: * Synthroid 88mcg PO daily * TSH normal Status: Acute Vertigo Resolved Vestibular Disequilibrium Right Ear Possibly secondary to drug-induced (Minocycline HCl - discontinued) * Zofran 4mg IV Q6H prn --> for associated nausea and vomiting Neurology consult ( Dr. Spears)---> Help appreciated As per neurology: * Hydration * Meclizine PRN * Plavix- patient to stay on plavix for 6 months * Out of bed * No further work up needed 01/02: HIV antibody 1 and 2 screen ordered: Negative RPR: Negative Imaging: ECHO: mild pulmonary hypertension. normal left ventricle, normal EF. CT head: No acute findings Brain MRI: No acute intracranial hemorrhage. Minimal of prolonged T2 signal changes seen in the periventricular white matter which may in part be related to CSF interface artifact however the possibility of some minimal concomitant chronic sequela of small vessel disease not excluded. Mild generalized volume loss. No enhancing masses. No evidence of unusual meningeal enhancement. Carotid doppler : Duplex scan does not suggest hemodynamically significant stenosis of the right and left extracranial carotid arteries Chest X-ray: Progressive bibasilar consolidations. Progressive infiltrates in this patient with underlying bibasilar bronchiectasis here is inferred. Inferolateral pleural effusions with pleural thickening -renoted Diarrhea Assessment & Plan: C dif toxin, stool culture, ova and parasite: all negative Flagyl stopped Status: Resolved Lower Extremity Edema Resolved Echo:mild pulmonary hypertension. normal left ventricle, normal EF. Lasix 20 mg once given 01/06 Edema of right ankle Assessment & Plan: Ankle X-ray: No fracture or arthritis. Mild circumferential soft tissue swelling bilaterally. Pending b/l Doppler official report Stopped fluids (01/03/17) Status: resolved Elevated LFTs 01/17: Patient's liver function test continue to rise; d/c motrin and benadryl Prophylactic measure Assessment & Plan: SCDs Ambulating Pepcid 20mg PO BID Florastor 250mg PO BID Status: Acute <Tanika Mccartney V - Last Filed: 01/19/17 18:21> Objective - Vital Signs/Intake and Output Vital Signs (last 24 hours): Temp Pulse Resp BP Pulse Ox 98.3 F 69 20 90/57 L 100 01/19/17 15:15 01/19/17 15:15 01/19/17 15:15 01/19/17 15:15 01/19/17 15:15 Intake and Output: 01/19/17 01/19/17 06:59 18:59 Intake Total 1320 Balance 1320 - Medications Medications: Current Medications Aspirin (Aspirin Chewable) 81 mg PO DAILY [facility] Last Admin: 01/19/17 09:59 Dose: 81 mg Docusate Sodium (Colace) 100 mg PO TID [facility] Last Admin: 01/19/17 17:57 Dose: 100 mg Famotidine (Pepcid) 20 mg PO BID [facility] Last Admin: 01/19/17 17:57 Dose: 20 mg Piperacillin Sod/Tazobactam (Sod 3.375 gm/ Sodium Chloride) 100 mls @ 200 mls/ hr IVPB Q6H [facility] Last Admin: 01/19/17 17:57 Dose: 200 mls/hr Sodium Chloride (Sodium Chloride 0.9%) 1,000 mls @ 50 mls/hr IV .Q20H [facility] Last Admin: 01/19/17 06:31 Dose: 50 mls/hr Ibuprofen (Motrin Tab) 400 mg PO Q6H PRN PRN Reason: Fever >100.4 F Last Admin: 01/19/17 12:35 Dose: 400 mg Levothyroxine Sodium (Synthroid) 88 mcg PO DAILY@0630 [facility] Last Admin: 01/19/17 05:43 Dose: 88 mcg Ondansetron HCl (Zofran Inj) 4 mg IVP Q6H PRN PRN Reason: Nausea/Vomiting Saccharomyces Boulardii (Florastor) 250 mg PO BID [facility] Last Admin: 01/19/17 17:57 Dose: 250 mg - Labs Labs: 01/19/17 06:17 01/19/17 06:17 Attending/Attestation - Attestation I have personally seen and examined this patient.: Yes I have fully participated in the care of the patient.: Yes I have reviewed all pertinent clinical information, including history, physical exam and plan: Yes Notes (Text): Patient seen, examined, and case discussed with day-time resident. Patient continues to spike fevers at night, Tmax: 100.2 F. Patient's white count is elevated at 14. Discussed with Dr. Jonas, recommended for Dr. Lowe's group regarding pancreatic lesion given the location of pancreatic lesion. Order for CT pancreatic protocol. Will follow-up with Dr. Lowe's group. Liver function tests are down trending. Patient has been off INH since 01/01/17. Ordered for abdomen US. Patient ordered for hypothermic blanket to bring down fever. Patient's blood pressure SBP: 90s; will increase the IV fluids to 100cc/hr and given a bolus this afternoon. Prior echo: EF is normal. Ordered for ABG with shock. lactate is normal and patient's ABG values within normal. Repeat Chest xray shows new right upper lobe infiltrate-->will need to follow-up with pulm to see if bronch is warranted. Patient's urine culture negative for growth, and blood cultures (01/18/17) negative X24 hours X2 Patient started on Zosyn 3.375 IV q 6hours (active since 01/17/17; Day 3).
[2017-01-19] MEDS ORDERED: Iodixanol 320 MG/ML 100 ML BOTTLE IV ONE (16:50)
[2017-01-19] MEDS ORDERED: Sodium Chloride 0.9% 1,000 ML IV ONE (18:17)
--- NOTE | 2017-01-19 18:29 | CT ---
PROCEDURE: CT Abdomen and Pelvis with and without intravenous contrast HISTORY: better characterize panc lesion COMPARISON: 01/08/2017 TECHNIQUE: Axial images of the abdomen were obtained in the pre contrast, portal venous and delayed phases of enhancement. Coronal and sagittal reformats were generated. This CT exam was performed using one or more of the following dose reduction techniques: Automated exposure control, adjustment of the mA and/or kV according to patient size, and/or use of iterative reconstruction technique. Contrast dose: 100 cc of Visipaque Radiation dose: Total exam DLP = 818 mGy-cm. FINDINGS: LOWER THORAX: Dense alveolar consolidation is seen in both lower lobes with air bronchograms. The findings are consistent with pneumonia. LIVER: Unremarkable. No gross lesion or ductal dilatation. GALLBLADDER AND BILE DUCTS: Unremarkable. PANCREAS: There is a small 8 mm hypodense lesion in the tail of the pancreas. This shows no evidence of enhancement on arterial or venous phases. This is most likely a simple cyst. This is too small to characterize with density measurements. This could represent a small lipoma. SPLEEN: Unremarkable. ADRENALS: Unremarkable. No mass. KIDNEYS AND URETERS: There is a 2.7 cm cyst in the right kidney. There is a nonobstructing stone adjacent to the cyst. VASCULATURE: Unremarkable. No aortic aneurysm. BOWEL: Unremarkable. No obstruction. No gross mural thickening. APPENDIX: Normal appendix. PERITONEUM: Unremarkable. No free fluid. No free air. LYMPH NODES: Unremarkable. No enlarged lymph nodes. BLADDER: Unremarkable. REPRODUCTIVE: Unremarkable. BONES: No acute fracture. OTHER FINDINGS: None. IMPRESSION: 8 mm nonenhancing cyst or lipoma in the tail of the pancreas. Extensive consolidation in both lower lobes with air bronchograms consistent with pneumonia.
[2017-01-19] MEDS: Sodium Chloride 0.9% 1,000 ML IV SCH (19:13)
[2017-01-20] MEDS: Sodium Chloride 0.9% 1,000 ML IV SCH ×2 (04:28→14:55)
[2017-01-20] MEDS: Piperacillin/Tazobact 3.375 GM in Sodium Chloride 100 ML IVPB SCH ×4 (05:48→23:59)
[2017-01-20] MEDS: Levothyroxine 88 MCG TAB PO SCH (05:55)
--- NOTE | 2017-01-20 08:50 | CP.PCM.PN ---
Subjective - Date & Time of Evaluation Date of Evaluation: 01/20/17 Time of Evaluation: 08:45 - Subjective Subjective: Patient seen and examined with GI fellow. No acute events overnight. He is seen sitting upright at bedside, appears quite comfortable. He denies abdominal pain, nausea, vomiting, fever/chills. Tolerating PO diet without difficulty. Review of vitals from today are normal. 12 point review of systems performed, negative aside from mentioned above. Objective - Vital Signs/Intake and Output Vital Signs (last 24 hours): Temp Pulse Resp BP Pulse Ox 98.9 F 85 20 102/62 97 01/20/17 07:00 01/20/17 07:00 01/20/17 07:00 01/20/17 07:00 01/20/17 07:00 Intake and Output: 01/20/17 01/20/17 06:59 18:59 Intake Total 2750 Balance 2750 - Medications Medications: Current Medications Aspirin (Aspirin Chewable) 81 mg PO DAILY [facility] Last Admin: 01/19/17 09:59 Dose: 81 mg Docusate Sodium (Colace) 100 mg PO TID [facility] Last Admin: 01/19/17 17:57 Dose: 100 mg Famotidine (Pepcid) 20 mg PO BID [facility] Last Admin: 01/19/17 17:57 Dose: 20 mg Piperacillin Sod/Tazobactam (Sod 3.375 gm/ Sodium Chloride) 100 mls @ 200 mls/ hr IVPB Q6H [facility] Last Admin: 01/20/17 05:48 Dose: 200 mls/hr Sodium Chloride (Sodium Chloride 0.9%) 1,000 mls @ 100 mls/hr IV .Q10H [facility] Last Admin: 01/20/17 04:28 Dose: Not Given Ibuprofen (Motrin Tab) 400 mg PO Q6H PRN PRN Reason: Fever >100.4 F Last Admin: 01/19/17 12:35 Dose: 400 mg Levothyroxine Sodium (Synthroid) 88 mcg PO DAILY@0630 [facility] Last Admin: 01/20/17 05:55 Dose: 88 mcg Ondansetron HCl (Zofran Inj) 4 mg IVP Q6H PRN PRN Reason: Nausea/Vomiting Saccharomyces Boulardii (Florastor) 250 mg PO BID [facility] Last Admin: 01/19/17 17:57 Dose: 250 mg - Labs Labs: 01/19/17 06:17 01/19/17 06:17 - Constitutional Appears: Non-toxic, No Acute Distress - Head Exam Head Exam: NORMAL INSPECTION - Eye Exam Eye Exam: EOMI, Normal appearance - ENT Exam ENT Exam: Mucous Membranes Moist - Respiratory Exam Respiratory Exam: Clear to Ausculation Bilateral - Cardiovascular Exam Cardiovascular Exam: REGULAR RHYTHM, +S1, +S2 - GI/Abdominal Exam GI & Abdominal Exam: Soft, Normal Bowel Sounds Additional comments: non tender to palpation in four quadrants - Extremities Exam Extremities Exam: Normal Inspection - Skin Skin Exam: Dry, Intact, Normal Color, Warm Assessment and Plan - Assessment and Plan (Free Text) Assessment: History of tuberculosis Pneumonia Transaminitis Pancreatic lesion - pancreatic CT reviewed by me showing a subcentimeter 8mm simple cyst Plan: - Diet as tolerated - Continue with antibiotic therapy as per medical team - LFTs stable, continue to observe. Viral hepatitis panel negative. Patient to undergo abdominal US today, will follow up results. - No further workup of pancreatic lesion is indicated at this time, would consider repeat imaging within 6 months to ensure stability. - Further management as per primary GI team. Will sign off case, please reconsult as necesary, thank you.
[2017-01-20] MEDS: Saccharomyces Boulardi 250 mg Cap PO SCH ×2 (09:19→17:22)
--- NOTE | 2017-01-20 09:43 | US ---
HISTORY: transamininitiis COMPARISON: None. TECHNIQUE: Grayscale imaging was performed. FINDINGS: LIVER: Measures 17.7 cm. There is diffuse increased echogenicity of the liver parenchyma. No mass. No intrahepatic bile duct dilatation. GALLBLADDER: The gallbladder is well distended without gallstones, wall thickening or pericholecystic fluid. The sonographic Sanchez's sign is negative. COMMON BILE DUCT: Measures 3.6 mm. No stones. No dilatation. PANCREAS: Unremarkable as visualized. No mass. No ductal dilatation. RIGHT KIDNEY: Measures 12.2cm. Normal echogenicity. No calculus, mass, or hydronephrosis. There is a 2.3 cm simple cyst in the lower pole. LEFT KIDNEY: Measures 13.0cm. Normal echogenicity. No calculus, mass, or hydronephrosis. SPLEEN: Normal in size and contour. No mass. AORTA: No aneurysmal dilatation. IVC: Unremarkable. OTHER FINDINGS: None. IMPRESSION: Mild hepatomegaly. Diffuse increased echogenicity in the liver may reflect hepatic steatosis however parenchymal infectious/ inflammatory etiologies cannot be entirely excluded. Clinical and laboratory correlation is advised. No cholelithiasis or biliary dilatation.
--- NOTE | 2017-01-20 09:51 | CP.PCM.PN ---
<SherrillTanika V - Last Filed: 01/20/17 14:23> Objective - Vital Signs/Intake and Output Vital Signs (last 24 hours): Temp Pulse Resp BP Pulse Ox 98.9 F 80 20 102/62 97 01/20/17 07:00 01/20/17 08:00 01/20/17 07:00 01/20/17 07:00 01/20/17 07:00 Intake and Output: 01/20/17 01/20/17 06:59 18:59 Intake Total 2750 Balance 2750 - Medications Medications: Current Medications Aspirin (Aspirin Chewable) 81 mg PO DAILY [facility] Stop: 01/20/17 23:59 Last Admin: 01/20/17 09:19 Dose: 81 mg Docusate Sodium (Colace) 100 mg PO TID [facility] Last Admin: 01/20/17 09:19 Dose: 100 mg Famotidine (Pepcid) 20 mg PO BID [facility] Last Admin: 01/20/17 09:19 Dose: 20 mg Piperacillin Sod/Tazobactam (Sod 3.375 gm/ Sodium Chloride) 100 mls @ 200 mls/ hr IVPB Q6H [facility] Last Admin: 01/20/17 11:28 Dose: 200 mls/hr Sodium Chloride (Sodium Chloride 0.9%) 1,000 mls @ 100 mls/hr IV .Q10H [facility] Last Admin: 01/20/17 04:28 Dose: Not Given Ibuprofen (Motrin Tab) 400 mg PO Q6H PRN PRN Reason: Fever >100.4 F Last Admin: 01/19/17 12:35 Dose: 400 mg Levothyroxine Sodium (Synthroid) 88 mcg PO DAILY@0630 [facility] Last Admin: 01/20/17 05:55 Dose: 88 mcg Ondansetron HCl (Zofran Inj) 4 mg IVP Q6H PRN PRN Reason: Nausea/Vomiting Saccharomyces Boulardii (Florastor) 250 mg PO BID [facility] Last Admin: 01/20/17 09:19 Dose: 250 mg - Labs Labs: 01/20/17 11:37 01/20/17 11:37 Attending/Attestation - Attestation I have personally seen and examined this patient.: Yes I have fully participated in the care of the patient.: Yes I have reviewed all pertinent clinical information, including history, physical exam and plan: Yes Notes (Text): Patient seen, examined, and case discussed with day-time resident. Patient given hypothermic blanket starting yesterday afternoon. Patient has not have been fevers since starting with the blanket. Patient's white count is downtrending to 12. Per Dr. Antunez's group in regards to pancreatic lesion: no further workup of the pancreatic lesion is indicated at this time, wound consider repeat imaging within 6 months to ensure stability. CT pancreatic protocol: 8 mm nonenhancing cyst or lipoma in the tail of the pancreas. Extensive consolidation in both lobes with air bronchograms consistent with pneumonia. Liver enzymes downtrending. Abdominal US (01/20/17): mild hepatomegaly. Diffuse increase echogencity in the liver may reflect hepatic steatosis however parenchymal infectious/inlammatory etiologies cannot be entirely excluded. No cholelithiasis or biliary dilatation. Repeat Chest xray shows new right upper lobe infiltrate-->will need to follow- up with pulm to see if bronch is warranted. Patient's urine culture negative for growth, and blood cultures (01/18/17) negative X24 hours X2 Patient started on Zosyn 3.375 IV q 6hours (active since 01/17/17; Day 4). Patient's lower extremities pitting edema likely secondary to low albumin--> director of category management referral and venous dopplers r/o DVT. <Juan Francisco Gonzales - Last Filed: 01/20/17 20:22> Subjective - Date & Time of Evaluation Date of Evaluation: 01/20/17 Time of Evaluation: 09:48 - Subjective Subjective: PGY- [address] Mccartney HPI:Patient was seen and examined at bedside. Resting comfortably in NAD. Patient admits to feeling subjectively feverish with associated chills that began last night. Also reports feeling mildly short of breath with a productive cough w/ white sputum. During the encounter, patient mentions that he has noticed new onset of foot swelling since yesterday, which has slightly worsened this morning. Denies any chest pain, diaphoresis, palpitations, n/v/d, constipation, abdominal pain, or calf tenderness. No other complaints are noted at this time. Objective - Vital Signs/Intake and Output Vital Signs (last 24 hours): Temp Pulse Resp BP Pulse Ox 98.9 F 85 20 102/62 97 08/01/17 07:00 01/20/17 07:00 01/20/17 07:00 01/20/17 07:00 01/20/17 07:00 Intake and Output: 01/20/17 01/20/17 06:59 18:59 Intake Total 2750 Balance 2750 - Medications Medications: Current Medications Aspirin (Aspirin Chewable) 81 mg PO DAILY [facility] Last Admin: 01/20/17 09:19 Dose: 81 mg Docusate Sodium (Colace) 100 mg PO TID [facility] Last Admin: 01/20/17 09:19 Dose: 100 mg Famotidine (Pepcid) 20 mg PO BID [facility] Last Admin: 01/20/17 09:19 Dose: 20 mg Piperacillin Sod/Tazobactam (Sod 3.375 gm/ Sodium Chloride) 100 mls @ 200 mls/ hr IVPB Q6H [facility] Last Admin: 01/20/17 05:48 Dose: 200 mls/hr Sodium Chloride (Sodium Chloride 0.9%) 1,000 mls @ 100 mls/hr IV .Q10H [facility] Last Admin: 01/20/17 04:28 Dose: Not Given Ibuprofen (Motrin Tab) 400 mg PO Q6H PRN PRN Reason: Fever >100.4 F Last Admin: 01/19/17 12:35 Dose: 400 mg Levothyroxine Sodium (Synthroid) 88 mcg PO DAILY@0630 [facility] Last Admin: 01/20/17 05:55 Dose: 88 mcg Ondansetron HCl (Zofran Inj) 4 mg IVP Q6H PRN PRN Reason: Nausea/Vomiting Saccharomyces Boulardii (Florastor) 250 mg PO BID [facility] Last Admin: 01/20/17 09:19 Dose: 250 mg - Labs Labs: 01/19/17 06:17 01/19/17 06:17 - Constitutional Appears: Well, No Acute Distress - Head Exam Head Exam: ATRAUMATIC - Eye Exam Eye Exam: EOMI - ENT Exam ENT Exam: Mucous Membranes Moist - Respiratory Exam Respiratory Exam: Rhonchi (LLL) - Cardiovascular Exam Cardiovascular Exam: REGULAR RHYTHM - GI/Abdominal Exam GI & Abdominal Exam: Soft. absent: Distended, Tenderness - Extremities Exam Additional comments: 2+ pitting edema around ankles b/l - Neurological Exam Neurological Exam: Alert, Awake, Oriented x3 - Psychiatric Exam Psychiatric exam: Normal Affect, Normal Mood Assessment and Plan - Assessment and Plan (Free Text) Assessment: Leukocytosis Assessment & Plan: WBC 01/20: 12.9 WBC on 01/15: 7.5, bands 23 * As per Dr. Calzada, repeat blood culture 01/15: negative for 24 hours WBC on 01/14: 8.7 WBC 9.6 on 01/13 CXR (01/06/17):hypoinflation, bronchovascular crowing, bibasilar atelectasis or infiltrates, probable trace bilateral pleural effusions as per Dr. Carias, patient put on isolation parameters CT/C/A/P (01/09/17): Segmental atelectasis with bronchiectasis bibasally. Scattered areas of thickening in intralobular septum in subpleural lung. DDX include interstitial pneumonia, chronic aspiration, sarcoid, connective tissue disease, cryptogenic organizing pneumoina, broncheoalveolar carcinoma. AFB 01/07: PRELIM - negative, 2nd AFB 01/07 - PRELIM - negative, AFB 01/03: PRELIM - negative AFB culture (01/06/17): No acid fast bacilli seen CRP >15 LDH>750 ESR (01/09/17) 101, (01/07/17) ESR 79 Legionella, Strep Pneumo (-), Mycoplasma pending procalcitonin<.05 dopplers of lower and upper extremities: negative except abnormal finding of right cephalic vein -aspirin 81mg daily HIV negative 01/11: blood and urine cultures no growth for 24 hours Diffuse Macular Rash Resolved possibly secondary to antibiotics as per ID, Dr. Carias, antibiotics stopped since cultures are negative, will continue to monitor as patient believes the rash started before he was hospitalized started on Ketoconazole cream for possible fungal infection Respiratory infection Hospital acquired PNA - Cont Zosyn 3.375 IV Q6 Consulted Pulm for possible Bronch of new RUL infiltrate Pending quantiferon test result - indeterminate AFB (-) x 4 started B6 25 mg PO daily (01/05) F/u with patient's PMD regarding TB diagnosis: * As per conversation with Dr. Pete Gresham and Dr. Stoll (who was covering for PMD Dr. Bran Klein [phone]) on 01/02/17 and he confirmed that patient was being treated with Isoniazid 300 mg PO 1x/day by Dr. Klein for TB Prophylaxis Imaging: CT chest: No significant interval change in the lungs since the previous exam. Interval slight increase in the size of the pleural effusion. Otherwise no significant interval change 01/01 Chest X-ray: Progressive bibasilar consolidations. Progressive infiltrates in this patient with underlying bibasilar bronchiectasis here is inferred. Inferolateral pleural effusions with pleural thickening 01/19 CXR: bibasilar opacities, opacitiy in Right upper lobe, small b/l pleural effusion Fever PNA 01/20: Tmax 99.8 Added hypothermic blanket 01/19: Tmax 100.2 01/17: Tmax 101.6 01/14: tmax 102.7 01/13: 23:20 fever of 102.8 01/12: Tmax 103 at 22:40 01/12: fever of 102 at 7:35 f/u speech and swallow- although patient appears to be tolerating PO intake at this time, coughing was noted during his meal and patient reports that coughing increases while eating. Suggest a modified barium swallow to r/o aspiration modified barium swallow(01/13): no penetration or aspiration observed aspiration precautions 01/09: Afebrile overnight ID consult (Dr. Carias), help appreciated Tmax: 100.6 (01/01/17) Blood culture/ gram stain (01/01): (+) for gram positive cocci/ Coagulase negative staphylococcus blood culture(01/11): no growth for 48 hours urine culture (01/11): no growth blood culture (01/15): no growth for 24 hours Status: Acute Bacteremia ID Consult (Dr. Carias on board), help appreciated. Dr. Carias stopped antibiotics on 01/14 01/19: blood cultures pending 01/15: Repeat urine culture negative blood culture (01/15): negative for 48 hours Blood culture repeat on 01/02 negative for 72 hours, Urine Culture 01/01 negative Blood culture/ gram stain : (+) for gram positive cocci/ Coagulase negative staphylococcus Lactate: 734 (01/13) Status: Acute Pancreatic Lesion 01/19: Dr. Lowe will do EUS Thursday to evaluate pancreatic tail mass, stop anticoag and NPO Thursday night CT C/A/P (01/08/17): 8mm low density lesion in tail of pancreas. Report from CT indicated a 3mm lesion in the pancreatic tail. No old study to compare. Recommend further evaluation with pancreas dedicated MRI w MRCP (see full report ) Dr. Jonas, GI consulted: help appreciated MRCP: 4mm T1 hypo intense focus at pancreatic tail consistent with finding on recent CT, cannot be further characterized 2.2 cm T2 hyperintense T1 hypo intense lesion in right kidney consistent with previously demonstrated cyst CA 19-9: 01/12-10.3, 01/13- 10.1, 01/14- 11.6 -IR for biopsy of pancreas * Dr. Jacobson consulted, help appreciated, --lesion to small to biopsy, will continue to follow CT Pancreas (01/19): redemonstrated pancreatic mass. GI recs = repeat imaging in 6mo Superficial Thrombophlebitis * Venous doppler (01/08/17): acute thrombosis of right cephalic vein and no evidence of vein thrombosis with left upper extremity w excellent venous flow. * Venous doppler (01/08/17): No DVT nor SVT bilateral lower extremities * Aspirin 81mg PO daily Constipation Assessment & Plan: MRCP (01/14) showed severe constipation Miralax given which helped patient have a bowel movement Started on Colace 100 mg po TID Status: Acute Anemia Assessment & Plan: 01/20: 9.3/28.8 01/19: 9.7/29 01/16: 10.7/32.4 01/12: 10.7/ 32.1 Stable H/H on admission: 11.1/34.6 Iron studies: * Iron 75 * TIBC : 207 * % Saturation: 34 * Ferritin: 454 Monitor H/H Status: Acute History of hypothyroidism Assessment & Plan: Continue home medication: * Synthroid 88mcg PO daily * TSH normal Status: Acute Vertigo Resolved Vestibular Disequilibrium Right Ear Possibly secondary to drug-induced (Minocycline HCl - discontinued) * Zofran 4mg IV Q6H prn --> for associated nausea and vomiting Neurology consult ( Dr. Spears)---> Help appreciated As per neurology: * Hydration * Meclizine PRN * Plavix- patient to stay on plavix for 6 months * Out of bed * No further work up needed 01/02: HIV antibody 1 and 2 screen ordered: Negative RPR: Negative Imaging: ECHO: mild pulmonary hypertension. normal left ventricle, normal EF. CT head: No acute findings Brain MRI: No acute intracranial hemorrhage. Minimal of prolonged T2 signal changes seen in the periventricular white matter which may in part be related to CSF interface artifact however the possibility of some minimal concomitant chronic sequela of small vessel disease not excluded. Mild generalized volume loss. No enhancing masses. No evidence of unusual meningeal enhancement. Carotid doppler : Duplex scan does not suggest hemodynamically significant stenosis of the right and left extracranial carotid arteries Chest X-ray: Progressive bibasilar consolidations. Progressive infiltrates in this patient with underlying bibasilar bronchiectasis here is inferred. Inferolateral pleural effusions with pleural thickening -renoted Diarrhea Assessment & Plan: C dif toxin, stool culture, ova and parasite: all negative Flagyl stopped Status: Resolved Lower Extremity Edema Echo:mild pulmonary hypertension. normal left ventricle, normal EF. Lasix 20 mg once given 01/06 Ankle X-ray: No fracture or arthritis. Mild circumferential soft tissue swelling bilaterally. Pending b/l Doppler official report Low albumin: Encouraged pt to eat more and started calorie counting, dietary consulted for malnutrition Elevated LFTs 01/17: Patient's liver function test continue to rise; d/c motrin and benadryl 01/20: Abdominal US = R. hepatic steatosis Vs parenchymal infection/inflammation. No GS or biliary dilation Prophylactic measure Assessment & Plan: SCDs Ambulating Pepcid 20mg PO BID Florastor 250mg PO BID Status: Acute
[2017-01-20 11:42] LABS: BASO % 0.2 % (0.0-2.0); EOS # 0.9 K/uL (0.0-0.7); EOS % 6.8 % (0.0-4.0); HEMATOCRIT 28.8 % (35.0-51.0); LYMPH # 1.8 K/uL (1.0-4.3); LYMPH % 13.7 % (20.0-40.0); MEAN CELL VOLUME 82.3 fL (80.0-94.0); MEAN CORPUSCULAR HEMOGLOBIN 26.6 pg (27.0-31.0); MEAN CORPUSCULAR HGB CONC 32.2 g/dL (33.0-37.0); MEAN PLATELET VOLUME 8.3 fL (7.2-11.7); MONO # 0.6 K/uL (0.0-0.8); MONO % 4.8 % (0.0-10.0); RED CELL DISTRIBUTION WIDTH 20.6 % (11.5-14.5); WHITE BLOOD COUNT 12.9 K/uL (4.8-10.8)
[2017-01-20 12:09] LABS: CHLORIDE 102 mmol/L (98-107); SODIUM 134 mmol/L (132-148)
[2017-01-20 12:10] LABS: POTASSIUM 3.9 mmol/L (3.6-5.2)
[2017-01-20 12:12] LABS: ALB/GLOB RATIO 0.4 (1.0-2.1); ALKALINE PHOSPHATASE 211 U/L (38-126); ALT/SGPT 77 U/L (21-72); AST/SGOT 71 U/L (17-59); BILIRUBIN,TOTAL 0.4 mg/dL (0.2-1.3); BLOOD UREA NITROGEN 11 mg/dL (9-20); CARBON DIOXIDE 24 mmol/L (22-30); GFR AFRICAN-AMERICAN > 60; GLUCOSE,RANDOM 86 mg/dL (75-110)
--- NOTE | 2017-01-20 19:03 | CT ---
EXAM: CT Chest Without Intravenous Contrast CLINICAL HISTORY: 51 years old, male; Signs and symptoms and abnormal findings; Lung mass or nodule; Not specified; Shortness of breath; Additional info: New findings in cxr TECHNIQUE: Axial computed tomography images of the chest without intravenous contrast. This CT exam was performed using one or more of the following dose reduction techniques: automated exposure control, adjustment of the mA and/or kV according to patient size, and/or use of iterative reconstruction technique. Coronal and sagittal reformatted images were created and reviewed. EXAM DATE/TIME: Exam ordered 01/20/2017 4:10 PM COMPARISON: CT - CHEST,ABD,PEL W/IV PO CONTRAST 01/08/2017 6:06:24 PM FINDINGS: Lungs: There is thickening of the interlobular septa at the right lung apex. Consolidation is noted at the right lung base. Mild bronchiectasis is noted at the lung bases. Tiny bulla are noted in the lung parenchyma of the right upper lobe.Bulla is noted in the posterior basal segment of the right lower lobe. Consolidation is noted at the lung base involving the left lower lobe and the lingula. Atelectasis is noted in the superior segment the left lower lobe.. Mild interstitial thickening is present at the level of the midlung. Scattered small bulla are present.. Pleural space: There are small bilateral pleural effusions.. Heart: There is a small amount of pericardial fluid/thickening. Fluid dissects into the major fissure on the right. Bones/joints: Unremarkable. No acute fracture. No dislocation. Soft tissues: Unremarkable. Vasculature: Unremarkable. No thoracic aortic aneurysm. Lymph nodes: Unremarkable. No enlarged lymph nodes. IMPRESSION: 1. Basilar consolidation with bronchiectasis. No change. Differential diagnostic considerations include desquamative interstitial pneumonitis, collagen vascular disease, cryptogenic organizing pneumonia and sarcoid 2. Small bilateral pleural effusions. Fluid dissects into the major fissure on the right which may account for recent chest radiograph a finding of new infiltrate. 3. Subpleural consolidation bilaterally with scattered small bulla.
[2017-01-20 19:54] LABS: INR 1.2
[2017-01-21] MEDS: Sodium Chloride 0.9% 1,000 ML IV SCH ×2 (03:30→03:32)
[2017-01-21] MEDS: Levothyroxine 88 MCG TAB PO SCH (05:41)
[2017-01-21] MEDS: Piperacillin/Tazobact 3.375 GM in Sodium Chloride 100 ML IVPB SCH ×4 (05:41→23:31)
[2017-01-21 06:07] LABS: BASO % 0.2 % (0.0-2.0); EOS # 0.7 K/uL (0.0-0.7); EOS % 4.7 % (0.0-4.0); HEMATOCRIT 28.1 % (35.0-51.0); LYMPH # 1.9 K/uL (1.0-4.3); LYMPH % 12.8 % (20.0-40.0); MEAN CELL VOLUME 81.6 fL (80.0-94.0); MEAN CORPUSCULAR HEMOGLOBIN 26.6 pg (27.0-31.0); MEAN CORPUSCULAR HGB CONC 32.6 g/dL (33.0-37.0); MONO # 0.9 K/uL (0.0-0.8); MONO % 5.9 % (0.0-10.0); RED CELL DISTRIBUTION WIDTH 20.2 % (11.5-14.5); WHITE BLOOD COUNT 14.7 K/uL (4.8-10.8)
[2017-01-21 06:16] LABS: ALB/GLOB RATIO 0.5 (1.0-2.1); ALKALINE PHOSPHATASE 158 U/L (38-126); ALT/SGPT 67 U/L (21-72); AST/SGOT 53 U/L (17-59); BILIRUBIN,TOTAL 0.2 mg/dL (0.2-1.3); BLOOD UREA NITROGEN 10 mg/dL (9-20); CALCIUM 6.8 mg/dl (8.6-10.4); CARBON DIOXIDE 23 mmol/L (22-30); CHLORIDE 103 mmol/L (98-107); GFR AFRICAN-AMERICAN > 60; GLUCOSE,RANDOM 101 mg/dL (75-110); POTASSIUM 3.8 mmol/L (3.6-5.2); SODIUM 135 mmol/L (132-148); TOTAL PROTEIN 6.5 g/dL (6.3-8.3)
[2017-01-21] MEDS: Saccharomyces Boulardi 250 mg Cap PO SCH ×2 (09:18→17:56)
[2017-01-21] MEDS: guaiFENesin 600 mg ER Tab PO SCH ×2 (12:26→17:56)
[2017-01-21] MEDS ORDERED: Albumin Human 25% (12.5 gm/50 ml) IV ONE (12:46)
--- NOTE | 2017-01-21 15:32 | CP.PCM.PN ---
<Juan Francisco Gonzales - Last Filed: 01/21/17 16:27> Subjective - Date & Time of Evaluation Date of Evaluation: 01/21/17 Time of Evaluation: 15:29 - Subjective Subjective: PGY-[address] Mccartney HPI: Patient was seen and examined at bedside. Resting comfortably in NAD. Patient denies fevers, chills or SOB. He does admit to having right-sided chest wall pain when coughing that began yesterday. The cough is described to be mostly dry with minimal sputum production. In addition to the cough, he has had a dry throat and pain when swallowing food which began 2 days ago. Patient also mentions that he feels as if the swelling in his legs is getting worse. Moreover , patient states that his R hand/wrist pain has gotten worse this morning as well. He expresses exquisite tenderness to the wrist with difficulty on range of motion. Denies any recent falls or trauma since prior hand XR (01/11). Patient has been able to pass urine and had a BM early this morning at 3:00 without issue. Denies abdominal pain, n/v/d, constipation, night sweats or any other complaints at this time. Objective - Vital Signs/Intake and Output Vital Signs (last 24 hours): Temp Pulse Resp BP Pulse Ox 97.5 F L 69 18 104/70 98 01/21/17 08:35 01/21/17 08:35 01/21/17 08:35 01/21/17 08:35 01/21/17 08:35 Intake and Output: 01/21/17 01/21/17 06:59 18:59 Intake Total 2470 Balance 2470 - Medications Medications: Current Medications Acetaminophen (Tylenol 325mg Tab) 650 mg PO Q6 PRN PRN Reason: Fever >100.4 F Aspirin (Aspirin Chewable) 81 mg PO DAILY [facility] Last Admin: 01/21/17 11:32 Dose: 81 mg Calcium Carbonate (Tums) 500 mg PO BID [facility] Docusate Sodium (Colace) 100 mg PO TID [facility] Last Admin: 01/21/17 13:33 Dose: 100 mg Famotidine (Pepcid) 20 mg PO BID [facility] Last Admin: 01/21/17 09:18 Dose: 20 mg Guaifenesin (Mucinex La) 600 mg PO BID [facility] Last Admin: 01/21/17 12:26 Dose: 600 mg Piperacillin Sod/Tazobactam (Sod 3.375 gm/ Sodium Chloride) 100 mls @ 200 mls/ hr IVPB Q6H [facility] Last Admin: 01/21/17 11:23 Dose: 200 mls/hr Levothyroxine Sodium (Synthroid) 88 mcg PO DAILY@0630 [facility] Last Admin: 01/21/17 05:41 Dose: 88 mcg Ondansetron HCl (Zofran Inj) 4 mg IVP Q6H PRN PRN Reason: Nausea/Vomiting Promethazine HCl/Codeine (Phenergan/Codeine Oral Syrup) 5 ml PO Q4 PRN PRN Reason: Cough Saccharomyces Boulardii (Florastor) 250 mg PO BID [facility] Last Admin: 01/21/17 09:18 Dose: 250 mg - Labs Labs: 01/21/17 05:53 01/21/17 05:53 PT 13.2 SECONDS (9.7-12.2) H 01/20/17 19:37 INR 1.2 01/20/17 19:37 APTT 32 SECONDS (21-34) 01/20/17 19:37 - Constitutional Appears: Well, No Acute Distress - Head Exam Head Exam: ATRAUMATIC, NORMAL INSPECTION, NORMOCEPHALIC - Eye Exam Eye Exam: EOMI, Normal appearance Pupil Exam: absent: Fixed - ENT Exam ENT Exam: Mucous Membranes Moist, Normal Exam - Respiratory Exam Respiratory Exam: Rhonchi (bibasilar) - Cardiovascular Exam Cardiovascular Exam: REGULAR RHYTHM, RRR. absent: Gallop, Rubs Additional comments: radial pulses 2+ bilaterally DP pulses 2+ b/l - GI/Abdominal Exam GI & Abdominal Exam: Soft, Hyperactive Bowel Sounds. absent: Distended, Firm, Guarding, Tenderness, Organomegaly - Extremities Exam Extremities Exam: Joint Swelling (R. wrist), Tenderness (dorsum of R. wrist). absent: Full ROM (decreased active and passive R.wrist, cant completely close fist) Additional comments: 2+ pitting edema of b/l LE - Neurological Exam Neurological Exam: Alert, Awake, Oriented x3 - Psychiatric Exam Psychiatric exam: Normal Affect, Normal Mood - Skin Skin Exam: Intact, Normal Color, Warm Assessment and Plan - Assessment and Plan (Free Text) Plan: Leukocytosis Assessment & Plan: Blood cultures pending, continue current Abx therapy WBC 8: 14.7 WBC 8: 12.9 WBC on 01/15: 7.5, bands 23 * As per Dr. Calzada, repeat blood culture 01/15: negative for 24 hours WBC on 01/14: 8.7 WBC 9.6 on 01/13 CXR (01/06/17):hypoinflation, bronchovascular crowing, bibasilar atelectasis or infiltrates, probable trace bilateral pleural effusions as per Dr. Carias, patient put on isolation parameters CT/C/A/P (01/09/17): Segmental atelectasis with bronchiectasis bibasally. Scattered areas of thickening in intralobular septum in subpleural lung. DDX include interstitial pneumonia, chronic aspiration, sarcoid, connective tissue disease, cryptogenic organizing pneumoina, broncheoalveolar carcinoma. AFB 01/07: PRELIM - negative, 2nd AFB 01/07 - PRELIM - negative, AFB 01/03: PRELIM - negative AFB culture (01/06/17): No acid fast bacilli seen CRP >15 LDH>750 ESR (01/09/17) 101, (01/07/17) ESR 79 Legionella, Strep Pneumo (-), Mycoplasma pending procalcitonin<.05 dopplers of lower and upper extremities: negative except abnormal finding of right cephalic vein -aspirin 81mg daily HIV negative 01/11: blood and urine cultures no growth for 24 hours Diffuse Macular Rash - Resolved possibly secondary to antibiotics as per ID, Dr. Carias, antibiotics stopped since cultures are negative, will continue to monitor as patient believes the rash started before he was hospitalized started on Ketoconazole cream for possible fungal infection Respiratory infection Hospital acquired PNA - Cont Zosyn 3.375 IV Q6 F/U Pulm consult quantiferon test result - indeterminate AFB (-) x 4 started B6 25 mg PO daily (01/05) F/u with patient's PMD regarding TB diagnosis: * As per conversation with Dr. Pete Gresham and Dr. Stoll (who was covering for PMD Dr. Bran Klein [phone]) on 01/02/17 and he confirmed that patient was being treated with Isoniazid 300 mg PO 1x/day by Dr. Klein for TB Prophylaxis Imaging: CT chest: No significant interval change in the lungs since the previous exam. Interval slight increase in the size of the pleural effusion. Otherwise no significant interval change 01/01 Chest X-ray: Progressive bibasilar consolidations. Progressive infiltrates in this patient with underlying bibasilar bronchiectasis here is inferred. Inferolateral pleural effusions with pleural thickening 01/19 CXR: bibasilar opacities, opacitiy in Right upper lobe, small b/l pleural effusion 01/21: Chest CT --> interstital pneumonitis Vs collagen vascular disease Vs Cryptogenic organizing pneumonia V sarcoid Fever PNA 01/21: Tmax 01/20: Tmax 99.8 Added hypothermic blanket 01/19: Tmax 100.2 01/17: Tmax 101.6 01/14: tmax 102.7 01/13: 23:20 fever of 102.8 01/12: Tmax 103 at 22:40 01/12: fever of 102 at 7:35 f/u speech and swallow- although patient appears to be tolerating PO intake at this time, coughing was noted during his meal and patient reports that coughing increases while eating. Suggest a modified barium swallow to r/o aspiration modified barium swallow(01/13): no penetration or aspiration observed aspiration precautions 01/09: Afebrile overnight ID consult (Dr. Carias), help appreciated Tmax: 100.6 (01/01/17) Blood culture/ gram stain (01/01): (+) for gram positive cocci/ Coagulase negative staphylococcus blood culture(01/11): no growth for 48 hours urine culture (01/11): no growth blood culture (01/15): no growth for 24 hours Status: Acute Bacteremia ID Consult (Dr. Carias on board), help appreciated. Dr. Carias stopped antibiotics on 01/14 01/19: blood cultures pending 01/15: Repeat urine culture negative blood culture (01/15): negative for 48 hours Blood culture repeat on 01/02 negative for 72 hours, Urine Culture 01/01 negative Blood culture/ gram stain : (+) for gram positive cocci/ Coagulase negative staphylococcus Lactate: 734 (01/13) Status: Acute Pancreatic Lesion 01/19: Dr. Lowe will do EUS Thursday to evaluate pancreatic tail mass, stop anticoag and NPO Thursday night CT C/A/P (01/08/17): 8mm low density lesion in tail of pancreas. Report from CT indicated a 3mm lesion in the pancreatic tail. No old study to compare. Recommend further evaluation with pancreas dedicated MRI w MRCP (see full report ) Dr. Jonas, GI consulted: help appreciated MRCP: 4mm T1 hypo intense focus at pancreatic tail consistent with finding on recent CT, cannot be further characterized 2.2 cm T2 hyperintense T1 hypo intense lesion in right kidney consistent with previously demonstrated cyst CA 19-9: 01/12-10.3, 01/13- 10.1, 01/14- 11.6 -IR for biopsy of pancreas * Dr. Jacobson consulted, help appreciated, --lesion to small to biopsy, will continue to follow CT Pancreas (01/19): redemonstrated pancreatic mass. GI recs = repeat imaging in 6mo Superficial Thrombophlebitis * Venous doppler (01/08/17): acute thrombosis of right cephalic vein and no evidence of vein thrombosis with left upper extremity w excellent venous flow. * Venous doppler (01/08/17): No DVT nor SVT bilateral lower extremities * Aspirin 81mg PO daily Constipation Assessment & Plan: MRCP (01/14) showed severe constipation Miralax given which helped patient have a bowel movement Started on Colace 100 mg po TID Status: Acute Anemia Assessment & Plan: 01/20: 9.3/28.8 01/19: 9.7/29 01/16: 10.7/32.4 01/12: 10.7/ 32.1 Stable H/H on admission: 11.1/34.6 Iron studies: * Iron 75 * TIBC : 207 * % Saturation: 34 * Ferritin: 454 Monitor H/H Status: Acute History of hypothyroidism Assessment & Plan: Continue home medication: * Synthroid 88mcg PO daily * TSH normal Status: Acute Vertigo Resolved Vestibular Disequilibrium Right Ear Possibly secondary to drug-induced (Minocycline HCl - discontinued) * Zofran 4mg IV Q6H prn --> for associated nausea and vomiting Neurology consult ( Dr. Spears)---> Help appreciated As per neurology: * Hydration * Meclizine PRN * Plavix- patient to stay on plavix for 6 months * Out of bed * No further work up needed 01/02: HIV antibody 1 and 2 screen ordered: Negative RPR: Negative Imaging: ECHO: mild pulmonary hypertension. normal left ventricle, normal EF. CT head: No acute findings Brain MRI: No acute intracranial hemorrhage. Minimal of prolonged T2 signal changes seen in the periventricular white matter which may in part be related to CSF interface artifact however the possibility of some minimal concomitant chronic sequela of small vessel disease not excluded. Mild generalized volume loss. No enhancing masses. No evidence of unusual meningeal enhancement. Carotid doppler : Duplex scan does not suggest hemodynamically significant stenosis of the right and left extracranial carotid arteries Chest X-ray: Progressive bibasilar consolidations. Progressive infiltrates in this patient with underlying bibasilar bronchiectasis here is inferred. Inferolateral pleural effusions with pleural thickening -renoted Diarrhea Assessment & Plan: C dif toxin, stool culture, ova and parasite: all negative Flagyl stopped Status: Resolved Lower Extremity Edema Echo:mild pulmonary hypertension. normal left ventricle, normal EF. Lasix 20 mg once given 01/06 Ankle X-ray: No fracture or arthritis. Mild circumferential soft tissue swelling bilaterally. Pending b/l Doppler official report Low albumin: Encouraged pt to eat more and started calorie counting, dietary consulted for malnutrition Elevated LFTs 01/17: Patient's liver function test continue to rise; d/c motrin and benadryl 01/20: Abdominal US = R. hepatic steatosis Vs parenchymal infection/inflammation. No GS or biliary dilation Prophylactic measure Assessment & Plan: SCDs Ambulating Pepcid 20mg PO BID Florastor 250mg PO BID Status: Acute <Tanika Mccartney V - Last Filed: 01/22/17 09:31> Objective - Vital Signs/Intake and Output Vital Signs (last 24 hours): Temp Pulse Resp BP Pulse Ox 99.4 F 80 18 115/64 97 01/22/17 07:45 01/22/17 08:00 01/22/17 07:45 01/22/17 07:45 01/22/17 07:45 Intake and Output: 01/22/17 01/22/17 06:59 18:59 Intake Total 1120 Balance 1120 - Medications Medications: Current Medications Acetaminophen (Tylenol 325mg Tab) 650 mg PO Q6 PRN PRN Reason: Fever >100.4 F Aspirin (Aspirin Chewable) 81 mg PO DAILY [facility] Last Admin: 01/21/17 11:32 Dose: 81 mg Calcium Carbonate (Tums) 500 mg PO BID [facility] Last Admin: 01/21/17 17:57 Dose: 500 mg Docusate Sodium (Colace) 100 mg PO TID [facility] Last Admin: 01/21/17 17:56 Dose: 100 mg Famotidine (Pepcid) 20 mg PO BID [facility] Last Admin: 01/21/17 17:56 Dose: 20 mg Guaifenesin (Mucinex La) 600 mg PO BID [facility] Last Admin: 01/21/17 17:56 Dose: 600 mg Piperacillin Sod/Tazobactam (Sod 3.375 gm/ Sodium Chloride) 100 mls @ 200 mls/ hr IVPB Q6H [facility] Last Admin: 01/22/17 05:37 Dose: 200 mls/hr Levothyroxine Sodium (Synthroid) 88 mcg PO DAILY@0630 [facility] Last Admin: 01/22/17 05:37 Dose: 88 mcg Ondansetron HCl (Zofran Inj) 4 mg IVP Q6H PRN PRN Reason: Nausea/Vomiting Promethazine HCl/Codeine (Phenergan/Codeine Oral Syrup) 5 ml PO Q4 PRN PRN Reason: Cough Saccharomyces Boulardii (Florastor) 250 mg PO BID [facility] Last Admin: 01/21/17 17:56 Dose: 250 mg - Labs Labs: 01/22/17 08:26 01/22/17 08:26 PT 13.2 SECONDS (9.7-12.2) H 01/20/17 19:37 INR 1.2 01/20/17 19:37 APTT 32 SECONDS (21-34) 01/20/17 19:37 Attending/Attestation - Attestation I have personally seen and examined this patient.: Yes I have fully participated in the care of the patient.: Yes I have reviewed all pertinent clinical information, including history, physical exam and plan: Yes Notes (Text): This is late computer entry for 01/21/17. Patient seen, examined, and case discussed with day-time resident. Patient refused hypothermic blanket last night. Patient's white count is uptrending. Patient on IV abx. Will repeat procalcitonin. Patient's urine culture negative for growth, and blood cultures (01/18/17) are negative current. Patient started on Zosyn 3.375 IV q 6hours (active since 01/17/17; Day 5). 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 Patient ordered for albumin this morning to increase stores and help with blood pressure.
[2017-01-21] MEDS: Calcium Carbonate 500 mg Chewable Antacid Tab PO SCH (17:57)
[2017-01-22] MEDS: Levothyroxine 88 MCG TAB PO SCH (05:37)
[2017-01-22] MEDS: Piperacillin/Tazobact 3.375 GM in Sodium Chloride 100 ML IVPB SCH ×3 (05:37→17:56)
[2017-01-22] MEDS ORDERED: Albumin Human 25% (12.5 gm/50 ml) IV ONE (08:00)
[2017-01-22 08:33] LABS: BASO # 0.1 K/uL (0.0-0.2); BASO % 0.4 % (0.0-2.0); EOS # 0.5 K/uL (0.0-0.7); EOS % 2.6 % (0.0-4.0); HEMATOCRIT 27.1 % (35.0-51.0); LYMPH # 2.3 K/uL (1.0-4.3); LYMPH % 12.2 % (20.0-40.0); MEAN CELL VOLUME 81.9 fL (80.0-94.0); MEAN CORPUSCULAR HEMOGLOBIN 26.9 pg (27.0-31.0); MEAN CORPUSCULAR HGB CONC 32.8 g/dL (33.0-37.0); MEAN PLATELET VOLUME 7.8 fL (7.2-11.7); MONO # 1.4 K/uL (0.0-0.8); MONO % 7.3 % (0.0-10.0); RED CELL DISTRIBUTION WIDTH 20.5 % (11.5-14.5); WHITE BLOOD COUNT 18.7 K/uL (4.8-10.8)
[2017-01-22 08:37] LABS: CHLORIDE 100 mmol/L (98-107); SODIUM 132 mmol/L (132-148)
[2017-01-22 08:38] LABS: POTASSIUM 3.7 mmol/L (3.6-5.2)
[2017-01-22 08:40] LABS: ALB/GLOB RATIO 0.5 (1.0-2.1); ALKALINE PHOSPHATASE 155 U/L (38-126); AST/SGOT 49 U/L (17-59); BILIRUBIN,TOTAL 0.5 mg/dL (0.2-1.3); BLOOD UREA NITROGEN 8 mg/dL (9-20); CARBON DIOXIDE 24 mmol/L (22-30); GFR AFRICAN-AMERICAN > 60; TOTAL PROTEIN 6.9 g/dL (6.3-8.3)
[2017-01-22 08:41] LABS: ALT/SGPT 71 U/L (21-72); GLUCOSE,RANDOM 81 mg/dL (75-110)
[2017-01-22] MEDS: guaiFENesin 600 mg ER Tab PO SCH ×2 (09:27→17:56)
[2017-01-22] MEDS: Saccharomyces Boulardi 250 mg Cap PO SCH ×2 (09:27→17:56)
[2017-01-22] MEDS: Calcium Carbonate 500 mg Chewable Antacid Tab PO SCH ×2 (09:27→17:57)
[2017-01-22 12:52] LABS: ABG ALLEN TEST POS; ARTERIAL BLOOD HGB O2 SAT 87.3 % (95.0-98.0); CARBOXYHEMOGLOBIN 2.5 % (0.5-1.5); DRAW SITE RRA; METHEMOGLOBIN 1.1 % (0.0-3.0)
[2017-01-22] MEDS: metroNIDAZOLE IV 500 mg/100 ml 500 MG/100 ML BAG IVPB SCH ×2 (13:51→21:06)
--- NOTE | 2017-01-22 15:29 | VASCLAB ---
PROCEDURE: Lower Extremity Venous Duplex Exam. HISTORY: swelling, R/O DVT PRIORS: 01/08/2017. TECHNIQUE: Bilateral common femoral, femoral, popliteal and posterior tibial, peroneal and great saphenous veins were evaluated. Flow was assessed with color Doppler, compressibility, assessment of phasic flow and augmentation response. Report prepared by Dillan Martinez, JOSE EDUARDO, RVT FINDINGS: RIGHT: 1. Common Femoral Vein: 1.1. Compressibility - Fully compressible: Thrombus - None : Flow - Phasic: Augmentation -Normal: Reflux - None. 2. Femoral Vein: 2.1. Compressibility - Fully compressible: Thrombus - None : Flow - Phasic: Augmentation -Normal: Reflux - None. 3. Popliteal Vein: 3.1. Compressibility - Fully compressible: Thrombus - None : Flow - Phasic: Augmentation -Normal: Reflux - None. 4. Posterior Tibial Vein: 4.1. Compressibility - Fully compressible: Thrombus - None: Flow - Phasic: Augmentation -Normal: Reflux - None. 5. Peroneal Vein: 5.1. Compressibility - Fully compressible: Thrombus - None: Flow - Phasic: Augmentation -Normal: Reflux - None. 6. Great Saphenous Vein: 6.1. Compressibility - Fully compressible: Thrombus - None: Flow - Phasic: Augmentation - Normal: Reflux - None. LEFT: 1. Common Femoral Vein: 1.1. Compressibility - Fully compressible: Thrombus - None: Flow - Phasic: Augmentation -Normal: Reflux - None. 2. Femoral Vein: 2.1. Compressibility - Fully compressible: Thrombus - None: Flow - Phasic: Augmentation -Normal: Reflux - None. 3. Popliteal Vein: 3.1. Compressibility - Fully compressible: Thrombus - None : Flow - Phasic: Augmentation -Normal: Reflux - None. 4. Posterior Tibial Vein: 4.1. Compressibility - Fully compressible: Thrombus - None: Flow - Phasic: Augmentation -Normal: Reflux - None. 5. Peroneal Vein: 5.1. Compressibility - Fully compressible: Thrombus - None: Flow - Phasic: Augmentation -Normal: Reflux - None. 6. Great Saphenous Vein: 6.1. Compressibility - Fully compressible: Thrombus - None: Flow - Phasic: Augmentation - Normal: Reflux - None. OTHER FINDINGS: Right: None significant. Left: None significant. IMPRESSION: Right: No evidence of deep or superficial vein thrombosis of the right lower extremity. Normal valve function noted of the right side. Left: No evidence of deep or superficial vein thrombosis of the left lower extremity. Normal valve function noted of the left side.
--- NOTE | 2017-01-22 18:00 | CP.PCM.PN ---
<Juan Francisco Gonzales - Last Filed: 01/22/17 18:35> Subjective - Date & Time of Evaluation Date of Evaluation: 01/22/17 Time of Evaluation: 17:57 - Subjective Subjective: PGY-[address] Mccartney HPI: Patient seen and examined at bedside. Resting comfortably in bed. He states that he is generally feeling better this morning. Denies feeling any fevers or SOB and that his chest pain has spontaneously resolved. Though he does admit to a minor headache and lightheadedness with some chills overnight. Patient's cough has continued to persist today. He now states that the pain in his throat has worsened. It is no longer associated with "mucus" build-up; rather described to be painful "inflammation" that feels like a "scratch" in the back of the throat. This pain is associated with difficulty tolerated both water and solid food PO 2/2 the pain. Patient is otherwise in NAD. Passing urine and BM regularly without issue. Currently denying signs of n/v/d, abdominal pain. No other complaints are noted at this time. Objective - Vital Signs/Intake and Output Vital Signs (last 24 hours): Temp Pulse Resp BP Pulse Ox 99.3 F 101 H 20 115/62 98 01/22/17 16:41 01/22/17 16:41 01/22/17 16:41 01/22/17 16:41 01/22/17 16:41 Intake and Output: 01/22/17 01/22/17 06:59 18:59 Intake Total 1120 Balance 1120 - Medications Medications: Current Medications Acetaminophen (Tylenol 325mg Tab) 650 mg PO Q6 PRN PRN Reason: Fever >100.4 F Aspirin (Aspirin Chewable) 81 mg PO DAILY REPLACED BY [facility] Last Admin: 01/22/17 09:27 Dose: 81 mg Calcium Carbonate (Tums) 500 mg PO BID REPLACED BY [facility] Last Admin: 01/22/17 09:27 Dose: 500 mg Docusate Sodium (Colace) 100 mg PO TID REPLACED BY [facility] Last Admin: 01/22/17 13:51 Dose: 100 mg Famotidine (Pepcid) 20 mg PO BID REPLACED BY [facility] Last Admin: 01/22/17 09:27 Dose: 20 mg Guaifenesin (Mucinex La) 600 mg PO BID REPLACED BY [facility] Last Admin: 01/22/17 09:27 Dose: 600 mg Piperacillin Sod/Tazobactam (Sod 3.375 gm/ Sodium Chloride) 100 mls @ 200 mls/ hr IVPB Q6H REPLACED BY [facility] Last Admin: 01/22/17 11:31 Dose: 200 mls/hr Metronidazole (Flagyl) 500 mg in 100 mls @ 100 mls/hr IVPB Q8 REPLACED BY [facility] Last Admin: 01/22/17 13:51 Dose: 100 mls/hr Levothyroxine Sodium (Synthroid) 88 mcg PO DAILY@0630 REPLACED BY [facility] Last Admin: 01/22/17 05:37 Dose: 88 mcg Ondansetron HCl (Zofran Inj) 4 mg IVP Q6H PRN PRN Reason: Nausea/Vomiting Promethazine HCl/Codeine (Phenergan/Codeine Oral Syrup) 5 ml PO Q4 PRN PRN Reason: Cough Saccharomyces Boulardii (Florastor) 250 mg PO BID REPLACED BY [facility] Last Admin: 01/22/17 09:27 Dose: 250 mg - Labs Labs: 01/22/17 08:26 01/22/17 08:26 PT 13.2 SECONDS (9.7-12.2) H 01/20/17 19:37 INR 1.2 01/20/17 19:37 APTT 32 SECONDS (21-34) 01/20/17 19:37 - Constitutional Appears: Well, Non-toxic, No Acute Distress - Head Exam Head Exam: ATRAUMATIC, NORMAL INSPECTION, NORMOCEPHALIC - Eye Exam Eye Exam: EOMI, Normal appearance, PERRL. absent: Conjunctival injection, Nystagmus, Periorbital swelling, Periorbital tenderness, Scleral icterus Pupil Exam: NORMAL ACCOMODATION, PERRL. absent: Fixed, Irregular, Miosis, Mydriatic, Unequal - ENT Exam ENT Exam: Mucous Membranes Moist, Normal Exam. absent: Mucous Membranes Dry - Neck Exam Neck Exam: Normal Inspection - Respiratory Exam Respiratory Exam: Rhonchi, Wheezes. absent: Accessory Muscle Use, Chest Wall Tenderness, Decreased Breath Sounds, Clear to Ausculation Bilateral, Prolonged Expiratory Phase, Respiratory Distress, Stridor, NORMAL BREATHING PATTERN - Cardiovascular Exam Cardiovascular Exam: REGULAR RHYTHM, RRR. absent: Bradycardia, Tachycardia, Clicks, Diastolic murmur, Gallop, Irregular Rhythm, JVD, Rubs, Murmur - GI/Abdominal Exam GI & Abdominal Exam: Soft, Normal Bowel Sounds. absent: Bruit, Distended, Firm , Guarding, Rigid, Tenderness, Diminished Bowel Sounds, Hernia, Hyperactive Bowel Sounds, Hypoactive Bowel Sounds, Mass, Organomegaly, Pulsatile Mass, Rebound - Extremities Exam Extremities Exam: Joint Swelling. absent: Tenderness Additional comments: stocking on b/l 2+ pitting - Neurological Exam Neurological Exam: Alert, Awake, Oriented x3. absent: Altered - Psychiatric Exam Psychiatric exam: Normal Affect, Normal Mood - Skin Skin Exam: Dry, Intact, Normal Color, Warm Assessment and Plan - Assessment and Plan (Free Text) Assessment: Leukocytosis Assessment & Plan: Consulted ID (Zheng) for increased WBC, ABx choice and wether or not to restart INH given his liver enzymes have returned to normal Started on IV Flagyl 500mg @ 100ml/hr due to increasing WBC WBC 01/22: 18.7 - repeated blood cultures, sputum cultures, urine cultures WBC 01/21: 14.7 WBC 01/20: 12.9 WBC on 01/15: 7.5, bands 23 WBC on 01/14: 8.7 WBC 9.6 on 01/13 CXR (01/06/17):hypoinflation, bronchovascular crowing, bibasilar atelectasis or infiltrates, probable trace bilateral pleural effusions as per Dr. Carias, patient put on isolation parameters CT/C/A/P (01/09/17): Segmental atelectasis with bronchiectasis bibasally. Scattered areas of thickening in intralobular septum in subpleural lung. DDX include interstitial pneumonia, chronic aspiration, sarcoid, connective tissue disease, cryptogenic organizing pneumoina, broncheoalveolar carcinoma. AFB 01/07: PRELIM - negative, 2nd AFB 01/07 - PRELIM - negative, AFB 01/03: PRELIM - negative AFB culture (01/06/17): No acid fast bacilli seen CRP >15 LDH>750 ESR (01/09/17) 101, (01/07/17) ESR 79 Legionella, Strep Pneumo (-), Mycoplasma pending procalcitonin<.05 dopplers of lower and upper extremities: negative except abnormal finding of right cephalic vein -aspirin 81mg daily HIV negative 01/11: blood and urine cultures no growth for 24 hours Diffuse Macular Rash - Resolved possibly secondary to antibiotics as per ID, Dr. Carias, antibiotics stopped since cultures are negative, will continue to monitor as patient believes the rash started before he was hospitalized started on Ketoconazole cream for possible fungal infection Respiratory infection Consider multilobar PNA - Cont Zosyn 3.375 IV Q6 and add IV Flagyl 500mg @ 100ml /hr per pulm (Mike) quantiferon test result - indeterminate AFB (-) x 4 started B6 25 mg PO daily (01/05) F/u with patient's PMD regarding TB diagnosis: * As per conversation with Dr. Pete Gresham and Dr. Stoll (who was covering for PMD Dr. Bran Klein [phone]) on 01/02/17 and he confirmed that patient was being treated with Isoniazid 300 mg PO 1x/day by Dr. Klein for TB Prophylaxis Imaging: CT chest: No significant interval change in the lungs since the previous exam. Interval slight increase in the size of the pleural effusion. Otherwise no significant interval change 01/01 Chest X-ray: Progressive bibasilar consolidations. Progressive infiltrates in this patient with underlying bibasilar bronchiectasis here is inferred. Inferolateral pleural effusions with pleural thickening 01/19 CXR: bibasilar opacities, opacitiy in Right upper lobe, small b/l pleural effusion 01/21: Chest CT --> interstital pneumonitis Vs collagen vascular disease Vs Cryptogenic organizing pneumonia V sarcoid Fever PNA 01/22: Tmax 99.4 01/20: Tmax 99.8 Added hypothermic blanket 01/19: Tmax 100.2 01/17: Tmax 101.6 01/14: tmax 102.7 01/13: 23:20 fever of 102.8 01/12: Tmax 103 at 22:40 01/12: fever of 102 at 7:35 f/u speech and swallow- although patient appears to be tolerating PO intake at this time, coughing was noted during his meal and patient reports that coughing increases while eating. Suggest a modified barium swallow to r/o aspiration modified barium swallow(01/13): no penetration or aspiration observed aspiration precautions 01/09: Afebrile overnight ID consult (Dr. Carias), help appreciated Tmax: 100.6 (01/01/17) Blood culture/ gram stain (01/01): (+) for gram positive cocci/ Coagulase negative staphylococcus blood culture(01/11): no growth for 48 hours urine culture (01/11): no growth blood culture (01/15): no growth for 24 hours Status: Acute Bacteremia Repeated blood, sputum and urine cultures ID Consult (Dr. Carias on board), help appreciated. Dr. Carias stopped antibiotics on 01/14 01/19: blood cultures pending 01/15: Repeat urine culture negative blood culture (01/15): negative for 48 hours Blood culture repeat on 01/02 negative for 72 hours, Urine Culture 01/01 negative Blood culture/ gram stain : (+) for gram positive cocci/ Coagulase negative staphylococcus Lactate: 734 (01/13) Status: Acute Pancreatic Lesion 01/19: Dr. Lowe will do EUS Thursday to evaluate pancreatic tail mass, stop anticoag and NPO Thursday night CT C/A/P (01/08/17): 8mm low density lesion in tail of pancreas. Report from CT indicated a 3mm lesion in the pancreatic tail. No old study to compare. Recommend further evaluation with pancreas dedicated MRI w MRCP (see full report ) Dr. Jonas, GI consulted: help appreciated MRCP: 4mm T1 hypo intense focus at pancreatic tail consistent with finding on recent CT, cannot be further characterized 2.2 cm T2 hyperintense T1 hypo intense lesion in right kidney consistent with previously demonstrated cyst CA 19-9: 01/12-10.3, 01/13- 10.1, 01/14- 11.6 -IR for biopsy of pancreas * Dr. Jacobson consulted, help appreciated, --lesion to small to biopsy, will continue to follow CT Pancreas (01/19): redemonstrated pancreatic mass. GI recs = repeat imaging in 6mo Superficial Thrombophlebitis * Venous doppler (01/08/17): acute thrombosis of right cephalic vein and no evidence of vein thrombosis with left upper extremity w excellent venous flow. * Venous doppler (01/08/17): No DVT nor SVT bilateral lower extremities * Aspirin 81mg PO daily Constipation - RESOLVED Assessment & Plan: MRCP (01/14) showed severe constipation Miralax given which helped patient have a bowel movement Started on Colace 100 mg po TID Status: Acute Anemia Assessment & Plan: 01/21: 8.9/27.1 01/20: 9.3/28.8 01/19: 9.7/29 01/16: 10.7/32.4 01/12: 10.7/ 32.1 Stable H/H on admission: 11.1/34.6 Iron studies: * Iron 75 * TIBC : 207 * % Saturation: 34 * Ferritin: 454 Monitor H/H Status: Acute History of hypothyroidism Assessment & Plan: Continue home medication: * Synthroid 88mcg PO daily * TSH normal Status: Acute Vertigo Resolved Vestibular Disequilibrium Right Ear Possibly secondary to drug-induced (Minocycline HCl - discontinued) * Zofran 4mg IV Q6H prn --> for associated nausea and vomiting Neurology consult ( Dr. Spears)---> Help appreciated As per neurology: * Hydration * Meclizine PRN * Plavix- patient to stay on plavix for 6 months * Out of bed * No further work up needed 01/02: HIV antibody 1 and 2 screen ordered: Negative RPR: Negative Imaging: ECHO: mild pulmonary hypertension. normal left ventricle, normal EF. CT head: No acute findings Brain MRI: No acute intracranial hemorrhage. Minimal of prolonged T2 signal changes seen in the periventricular white matter which may in part be related to CSF interface artifact however the possibility of some minimal concomitant chronic sequela of small vessel disease not excluded. Mild generalized volume loss. No enhancing masses. No evidence of unusual meningeal enhancement. Carotid doppler : Duplex scan does not suggest hemodynamically significant stenosis of the right and left extracranial carotid arteries Chest X-ray: Progressive bibasilar consolidations. Progressive infiltrates in this patient with underlying bibasilar bronchiectasis here is inferred. Inferolateral pleural effusions with pleural thickening -renoted Diarrhea - RESOLVED Assessment & Plan: Testing for C.diff again given intermediate manager antibiotic therapy C dif toxin, stool culture, ova and parasite: all negative Flagyl stopped Status: Resolved Lower Extremity Edema Gave Albumin 25% 12.5g IV to increase levels and reduce extravesation in order to control LE Edema Echo:mild pulmonary hypertension. normal left ventricle, normal EF. Lasix 20 mg once given 01/06 Ankle X-ray: No fracture or arthritis. Mild circumferential soft tissue swelling bilaterally. Pending b/l Doppler official report Elevated LFTs - RESOLVED 01/17: Patient's liver function test continue to rise; d/c motrin and benadryl 01/20: Abdominal US = R. hepatic steatosis Vs parenchymal infection/inflammation. No GS or biliary dilation Consulted ID (Zheng) to see if we can restart INH given the LFT return to baseline Prophylactic measure Assessment & Plan: SCDs Ambulating Pepcid 20mg PO BID Florastor 250mg PO BID Status: Acute <Tanika Mccartney V - Last Filed: 01/27/17 17:30> Objective - Vital Signs/Intake and Output Vital Signs (last 24 hours): Temp Pulse Resp BP Pulse Ox 101.1 F H 106 H 20 126/72 97 01/27/17 09:41 01/27/17 08:39 01/27/17 07:00 01/27/17 14:21 01/27/17 07:00 Intake and Output: 01/27/17 01/27/17 06:59 18:59 Intake Total 420 Balance 420 - Medications Medications: Current Medications Acetaminophen (Tylenol 325mg Tab) 650 mg PO Q6 PRN PRN Reason: Fever >100.4 F Last Admin: 01/27/17 09:41 Dose: 650 mg Aspirin (Aspirin Chewable) 81 mg PO DAILY REPLACED BY [facility] Last Admin: 01/27/17 14:22 Dose: Not Given Calcium Carbonate (Tums) 500 mg PO BID REPLACED BY [facility] Last Admin: 01/27/17 14:22 Dose: Not Given Docusate Sodium (Colace) 100 mg PO TID REPLACED BY [facility] Last Admin: 01/27/17 14:21 Dose: 100 mg Enoxaparin Sodium (Lovenox) 60 mg SC Q12 REPLACED BY [facility] Last Admin: 01/27/17 14:22 Dose: Not Given Famotidine (Pepcid) 20 mg PO BID REPLACED BY [facility] Last Admin: 01/27/17 09:41 Dose: 20 mg Guaifenesin (Mucinex La) 600 mg PO BID REPLACED BY [facility] Last Admin: 01/27/17 09:41 Dose: 600 mg Meropenem 1 gm/ Sodium (Chloride) 100 mls @ 100 mls/hr IVPB Q8 MARY ELLEN Linezolid (Zyvox 600mg/300ml D5w) 600 mg in 300 mls @ 300 mls/hr IVPB Q12H REPLACED BY [facility] Sodium Chloride (Sodium Chloride 0.9%) 1,000 mls @ 100 mls/hr IV .Q10H MARY ELLEN Ipratropium [place] (Atrovent Hfa) 2 puff IH RQ6 PRN PRN Reason: Shortness of Breath Levothyroxine Sodium (Synthroid) 88 mcg PO DAILY@0630 REPLACED BY [facility] Last Admin: 01/27/17 06:44 Dose: 88 mcg Metoprolol Tartrate (Lopressor) 25 mg PO Q6H REPLACED BY [facility] Last Admin: 01/27/17 14:21 Dose: 25 mg Ondansetron HCl (Zofran Inj) 4 mg IVP Q6H PRN PRN Reason: Nausea/Vomiting Promethazine HCl/Codeine (Phenergan/Codeine Oral Syrup) 5 ml PO Q4 PRN PRN Reason: Cough Last Admin: 01/23/17 21:43 Dose: 5 ml Saccharomyces Boulardii (Florastor) 250 mg PO BID REPLACED BY [facility] Last Admin: 01/27/17 09:41 Dose: 250 mg - Labs Labs: 01/27/17 07:10 01/27/17 07:10 PT 13.2 SECONDS (9.7-12.2) H 01/20/17 19:37 INR 1.2 01/20/17 19:37 APTT 32 SECONDS (21-34) 01/20/17 19:37 Attending/Attestation - Attestation I have personally seen and examined this patient.: Yes I have fully participated in the care of the patient.: Yes I have reviewed all pertinent clinical information, including history, physical exam and plan: Yes Notes (Text): This is late computer entry for 01/22/17. Patient seen, examined, and case discussed with day-time resident. Patient's white count increased today. Cultures repeated today). Patient started on Flagyl 500mg IV Q 8hours for increased Anaerobic coverage. Patient has recent CT Chest ordered on 01/20/17 which was extensive pneumonia. Infectious disease on board for any further recommendations Patient is wearing compressive stockings to help reduce edema.
[2017-01-22] MEDS ORDERED: Clindamycin 600 MG in Sodium Chloride 0.9% 100 ML IV SCH (22:45)
[2017-01-23] MEDS: Clindamycin 600mg/50ml NS 600 MG/50 ML BAG IVPB SCH ×3 (01:06→15:59)
[2017-01-23] MEDS: Levothyroxine 88 MCG TAB PO SCH (06:32)
[2017-01-23] MEDS: metroNIDAZOLE IV 500 mg/100 ml 500 MG/100 ML BAG IVPB SCH ×3 (06:32→21:43)
[2017-01-23 07:46] LABS: BASO % 0.1 % (0.0-2.0); EOS # 0.3 K/uL (0.0-0.7); EOS % 1.6 % (0.0-4.0); HEMATOCRIT 27.3 % (35.0-51.0); LYMPH # 2.2 K/uL (1.0-4.3); LYMPH % 10.7 % (20.0-40.0); MEAN CELL VOLUME 82.1 fL (80.0-94.0); MEAN CORPUSCULAR HEMOGLOBIN 27.3 pg (27.0-31.0); MEAN CORPUSCULAR HGB CONC 33.3 g/dL (33.0-37.0); MEAN PLATELET VOLUME 7.9 fL (7.2-11.7); MONO # 1.1 K/uL (0.0-0.8); MONO % 5.4 % (0.0-10.0); RED CELL DISTRIBUTION WIDTH 20.2 % (11.5-14.5); WHITE BLOOD COUNT 20.5 K/uL (4.8-10.8)
[2017-01-23 08:09] LABS: CHLORIDE 99 mmol/L (98-107); POTASSIUM 3.6 mmol/L (3.6-5.2); SODIUM 132 mmol/L (132-148)
[2017-01-23 08:11] LABS: AST/SGOT 51 U/L (17-59); BILIRUBIN,TOTAL 0.5 mg/dL (0.2-1.3); GFR AFRICAN-AMERICAN > 60
[2017-01-23 08:12] LABS: ALB/GLOB RATIO 0.5 (1.0-2.1); ALKALINE PHOSPHATASE 148 U/L (38-126); ALT/SGPT 62 U/L (21-72); BLOOD UREA NITROGEN 8 mg/dL (9-20); CARBON DIOXIDE 24 mmol/L (22-30); GLUCOSE,RANDOM 85 mg/dL (75-110); TOTAL PROTEIN 7.2 g/dL (6.3-8.3)
[2017-01-23 08:13] LABS: CALCIUM 7.2 mg/dl (8.6-10.4)
[2017-01-23] MEDS: Saccharomyces Boulardi 250 mg Cap PO SCH ×2 (10:07→17:59)
[2017-01-23] MEDS: guaiFENesin 600 mg ER Tab PO SCH ×2 (10:07→17:59)
[2017-01-23] MEDS: Calcium Carbonate 500 mg Chewable Antacid Tab PO SCH ×2 (10:21→18:00)
[2017-01-23] MEDS: Cefepime IV 2 gm in Dextrose 2 GM/100 ML BAG IVPB SCH (14:55)
[2017-01-23] MEDS ORDERED: Enoxaparin 40 mg Syringe SC STA (15:35)
--- NOTE | 2017-01-23 18:21 | CP.PCM.PN ---
Subjective - Date & Time of Evaluation Date of Evaluation: 01/23/17 Time of Evaluation: 08:00 - Subjective Subjective: increased wbc but remains afebrile and denies chest pain or sob cough is minimal LFT's back to normal CT noted- pulm on board Objective - Vital Signs/Intake and Output Vital Signs (last 24 hours): Temp Pulse Resp BP Pulse Ox 99.8 F H 98 H 20 108/63 98 01/23/17 16:05 01/23/17 16:05 01/23/17 16:05 01/23/17 16:05 01/23/17 16:05 Intake and Output: 01/23/17 01/23/17 06:59 18:59 Intake Total 620 Balance 620 - Medications Medications: Current Medications Acetaminophen (Tylenol 325mg Tab) 650 mg PO Q6 PRN PRN Reason: Fever >100.4 F Albuterol/Ipratropium (Duoneb 3 Mg/0.5 Mg (3 Ml) Ud) 3 ml INH RQ6 [facility] Aspirin (Aspirin Chewable) 81 mg PO DAILY [facility] Last Admin: 01/23/17 10:07 Dose: 81 mg Calcium Carbonate (Tums) 500 mg PO BID [facility] Last Admin: 01/23/17 18:00 Dose: 500 mg Docusate Sodium (Colace) 100 mg PO TID [facility] Last Admin: 01/23/17 17:59 Dose: 100 mg Famotidine (Pepcid) 20 mg PO BID [facility] Last Admin: 01/23/17 17:59 Dose: 20 mg Guaifenesin (Mucinex La) 600 mg PO BID [facility] Last Admin: 01/23/17 17:59 Dose: 600 mg Metronidazole (Flagyl) 500 mg in 100 mls @ 100 mls/hr IVPB Q8 [facility] Last Admin: 01/23/17 13:28 Dose: 100 mls/hr Clindamycin Phosphate (Cleocin In Normal Saline Addvantage) 600 mg in 50 mls @ 50 mls/hr IVPB Q8H [facility] Last Admin: 01/23/17 15:59 Dose: 50 mls/hr Cefepime HCl (Maxipime Iv 2 Gm Premix) 2 gm in 100 mls @ 200 mls/hr IVPB Q8H [facility] Last Admin: 01/23/17 14:55 Dose: 200 mls/hr Levothyroxine Sodium (Synthroid) 88 mcg PO DAILY@0630 [facility] Last Admin: 01/23/17 06:32 Dose: 88 mcg Metronidazole (Flagyl) 500 mg PO Q8 [facility] Ondansetron HCl (Zofran Inj) 4 mg IVP Q6H PRN PRN Reason: Nausea/Vomiting Promethazine HCl/Codeine (Phenergan/Codeine Oral Syrup) 5 ml PO Q4 PRN PRN Reason: Cough Saccharomyces Boulardii (Florastor) 250 mg PO BID [facility] Last Admin: 01/23/17 17:59 Dose: 250 mg - Labs Labs: 01/23/17 07:20 01/23/17 07:20 PT 13.2 SECONDS (9.7-12.2) H 01/20/17 19:37 INR 1.2 01/20/17 19:37 APTT 32 SECONDS (21-34) 01/20/17 19:37 - Constitutional Appears: Non-toxic, Chronically Ill - Head Exam Head Exam: NORMOCEPHALIC - Eye Exam Eye Exam: absent: Scleral icterus - ENT Exam ENT Exam: Mucous Membranes Dry - Neck Exam Neck Exam: absent: Lymphadenopathy - Respiratory Exam Respiratory Exam: Decreased Breath Sounds, Rhonchi - Cardiovascular Exam Cardiovascular Exam: REGULAR RHYTHM - GI/Abdominal Exam GI & Abdominal Exam: Soft. absent: Tenderness - Rectal Exam Rectal Exam: Deferred Assessment and Plan (1) Allergic drug rash due to anti-infective agent Status: Acute (2) Aspiration into lower respiratory tract Status: Acute (3) PPD+ (purified protein derivative positive) Status: Acute - Assessment and Plan (Free Text) Assessment: all cultures remain negative wbc rising despite iv antibiotics consider d/c all antibiotics , pulm follow up and heme eval if wbc persistently elevated
--- NOTE | 2017-01-23 20:24 | CP.PCM.PN ---
Subjective - Date & Time of Evaluation Date of Evaluation: 01/23/17 Time of Evaluation: 07:15 - Subjective Subjective: PGY-[address] Delarosa Patient seen and examined at bedside. Patient reports isolated episode of chest pain overnight without any associated radiation of pain, diaphoresis, palpitations, shortness of breath. Patient is currently resting comfortably with no complaints. Patient reports feeling well. Objective - Vital Signs/Intake and Output Vital Signs (last 24 hours): Temp Pulse Resp BP Pulse Ox 99.8 F H 98 H 20 108/63 98 01/23/17 16:05 01/23/17 16:05 01/23/17 16:05 01/23/17 16:05 01/23/17 16:05 - Medications Medications: Current Medications Acetaminophen (Tylenol 325mg Tab) 650 mg PO Q6 PRN PRN Reason: Fever >100.4 F Albuterol/Ipratropium (Duoneb 3 Mg/0.5 Mg (3 Ml) Ud) 3 ml INH RQ6 [facility] Aspirin (Aspirin Chewable) 81 mg PO DAILY [facility] Last Admin: 01/23/17 10:07 Dose: 81 mg Calcium Carbonate (Tums) 500 mg PO BID [facility] Last Admin: 01/23/17 18:00 Dose: 500 mg Docusate Sodium (Colace) 100 mg PO TID [facility] Last Admin: 01/23/17 17:59 Dose: 100 mg Famotidine (Pepcid) 20 mg PO BID [facility] Last Admin: 01/23/17 17:59 Dose: 20 mg Guaifenesin (Mucinex La) 600 mg PO BID [facility] Last Admin: 01/23/17 17:59 Dose: 600 mg Metronidazole (Flagyl) 500 mg in 100 mls @ 100 mls/hr IVPB Q8 [facility] Last Admin: 01/23/17 13:28 Dose: 100 mls/hr Clindamycin Phosphate (Cleocin In Normal Saline Addvantage) 600 mg in 50 mls @ 50 mls/hr IVPB Q8H [facility] Last Admin: 01/23/17 15:59 Dose: 50 mls/hr Cefepime HCl (Maxipime Iv 2 Gm Premix) 2 gm in 100 mls @ 200 mls/hr IVPB Q8H [facility] Last Admin: 01/23/17 14:55 Dose: 200 mls/hr Levothyroxine Sodium (Synthroid) 88 mcg PO DAILY@0630 [facility] Last Admin: 01/23/17 06:32 Dose: 88 mcg Metronidazole (Flagyl) 500 mg PO Q8 [facility] Ondansetron HCl (Zofran Inj) 4 mg IVP Q6H PRN PRN Reason: Nausea/Vomiting Promethazine HCl/Codeine (Phenergan/Codeine Oral Syrup) 5 ml PO Q4 PRN PRN Reason: Cough Saccharomyces Boulardii (Florastor) 250 mg PO BID [facility] Last Admin: 01/23/17 17:59 Dose: 250 mg - Labs Labs: 01/23/17 07:20 01/23/17 07:20 PT 13.2 SECONDS (9.7-12.2) H 01/20/17 19:37 INR 1.2 01/20/17 19:37 APTT 32 SECONDS (21-34) 01/20/17 19:37 - Constitutional Appears: No Acute Distress - Head Exam Head Exam: ATRAUMATIC, NORMAL INSPECTION, NORMOCEPHALIC - Eye Exam Eye Exam: EOMI, PERRL - ENT Exam ENT Exam: Mucous Membranes Moist - Respiratory Exam Respiratory Exam: Rales (b/l), Wheezes (b/l) - Cardiovascular Exam Cardiovascular Exam: REGULAR RHYTHM, +S1, +S2 - GI/Abdominal Exam GI & Abdominal Exam: Soft, Normal Bowel Sounds - Extremities Exam Extremities Exam: Pedal Edema (b/l pitting up to ankle) - Neurological Exam Neurological Exam: Alert, Awake, Oriented x3 - Skin Skin Exam: Dry, Intact, Normal Color, Warm Assessment and Plan - Assessment and Plan (Free Text) Plan: Leukocytosis Assessment & Plan: Consulted ID (Zheng) for increased WBC, ABx choice and wether or not to restart INH given his liver enzymes have returned to normal Started on IV Flagyl 500mg @ 100ml/hr due to increasing WBC WBC 01/23: 20.5--started Flagyl 500 mg PO Q8 WBC 01/22: 18.7 - repeated blood cultures, sputum cultures, urine cultures WBC 01/21: 14.7 WBC 01/20: 12.9 WBC on 01/15: 7.5, bands 23 WBC on 01/14: 8.7 WBC 9.6 on 01/13 CXR (01/06/17):hypoinflation, bronchovascular crowing, bibasilar atelectasis or infiltrates, probable trace bilateral pleural effusions as per Dr. Carias, patient put on isolation parameters CT/C/A/P (01/09/17): Segmental atelectasis with bronchiectasis bibasally. Scattered areas of thickening in intralobular septum in subpleural lung. DDX include interstitial pneumonia, chronic aspiration, sarcoid, connective tissue disease, cryptogenic organizing pneumoina, broncheoalveolar carcinoma. AFB 01/07: PRELIM - negative, 2nd AFB 01/07 - PRELIM - negative, AFB 01/03: PRELIM - negative AFB culture (01/06/17): No acid fast bacilli seen CRP >15 LDH>750 ESR (01/09/17) 101, (01/07/17) ESR 79 Legionella, Strep Pneumo (-), Mycoplasma pending procalcitonin<.05 dopplers of lower and upper extremities: negative except abnormal finding of right cephalic vein -aspirin 81mg daily HIV negative 01/11: blood and urine cultures no growth for 24 hours Diffuse Macular Rash - Resolved possibly secondary to antibiotics as per ID, Dr. Carias, antibiotics stopped since cultures are negative, will continue to monitor as patient believes the rash started before he was hospitalized started on Ketoconazole cream for possible fungal infection Respiratory infection Consider multilobar PNA - Cont Zosyn 3.375 IV Q6 and add IV Flagyl 500mg @ 100ml /hr per pulm (Mike) quantiferon test result - indeterminate AFB (-) x 4 started B6 25 mg PO daily (01/05) F/u with patient's PMD regarding TB diagnosis: * As per conversation with Dr. Pete Gresham and Dr. Stoll (who was covering for PMD Dr. Bran Klein [phone]) on 01/02/17 and he confirmed that patient was being treated with Isoniazid 300 mg PO 1x/day by Dr. Klein for TB Prophylaxis Imaging: CT chest: No significant interval change in the lungs since the previous exam. Interval slight increase in the size of the pleural effusion. Otherwise no significant interval change 01/01 Chest X-ray: Progressive bibasilar consolidations. Progressive infiltrates in this patient with underlying bibasilar bronchiectasis here is inferred. Inferolateral pleural effusions with pleural thickening 01/19 CXR: bibasilar opacities, opacitiy in Right upper lobe, small b/l pleural effusion 01/21: Chest CT --> interstital pneumonitis Vs collagen vascular disease Vs Cryptogenic organizing pneumonia V sarcoid Duoneb Q6 MARY ELLEN started 01/23/17 Fever PNA 01/23: Tmax 99.8 01/22: Tmax 99.4 01/20: Tmax 99.8 Added hypothermic blanket 01/19: Tmax 100.2 01/17: Tmax 101.6 01/14: tmax 102.7 01/13: 23:20 fever of 102.8 01/12: Tmax 103 at 22:40 01/12: fever of 102 at 7:35 f/u speech and swallow- although patient appears to be tolerating PO intake at this time, coughing was noted during his meal and patient reports that coughing increases while eating. Suggest a modified barium swallow to r/o aspiration modified barium swallow(01/13): no penetration or aspiration observed aspiration precautions 01/09: Afebrile overnight ID consult (Dr. Carias), help appreciated Tmax: 100.6 (01/01/17) Blood culture/ gram stain (01/01): (+) for gram positive cocci/ Coagulase negative staphylococcus blood culture(01/11): no growth for 48 hours urine culture (01/11): no growth blood culture (01/15): no growth for 24 hours Status: Acute Bacteremia Repeated blood, sputum and urine cultures ID Consult (Dr. Carias on board), help appreciated. Dr. Carias stopped antibiotics on 01/14 01/19: blood cultures pending 01/15: Repeat urine culture negative blood culture (01/15): negative for 48 hours Blood culture repeat on 01/02 negative for 72 hours, Urine Culture 01/01 negative Blood culture/ gram stain : (+) for gram positive cocci/ Coagulase negative staphylococcus Lactate: 734 (01/13) Status: Acute Pancreatic Lesion 01/19: Dr. Lowe will do EUS Thursday to evaluate pancreatic tail mass, stop anticoag and NPO Thursday night CT C/A/P (01/08/17): 8mm low density lesion in tail of pancreas. Report from CT indicated a 3mm lesion in the pancreatic tail. No old study to compare. Recommend further evaluation with pancreas dedicated MRI w MRCP (see full report ) Dr. Jonas, GI consulted: help appreciated MRCP: 4mm T1 hypo intense focus at pancreatic tail consistent with finding on recent CT, cannot be further characterized 2.2 cm T2 hyperintense T1 hypo intense lesion in right kidney consistent with previously demonstrated cyst CA 19-9: 01/12-10.3, 01/13- 10.1, 01/14- 11.6 -IR for biopsy of pancreas * Dr. Jacobson consulted, help appreciated, --lesion to small to biopsy, will continue to follow CT Pancreas (01/19): redemonstrated pancreatic mass. GI recs = repeat imaging in 6mo Superficial Thrombophlebitis * Venous doppler (01/08/17): acute thrombosis of right cephalic vein and no evidence of vein thrombosis with left upper extremity w excellent venous flow. * Venous doppler (01/08/17): No DVT nor SVT bilateral lower extremities * Aspirin 81mg PO daily Constipation - RESOLVED Assessment & Plan: MRCP (01/14) showed severe constipation Miralax given which helped patient have a bowel movement Started on Colace 100 mg po TID Status: Acute Anemia Assessment & Plan: 01/21: 8.9/27.1 01/20: 9.3/28.8 01/19: 9.7/29 01/16: 10.7/32.4 01/12: 10.7/ 32.1 Stable H/H on admission: 11.1/34.6 Iron studies: * Iron 75 * TIBC : 207 * % Saturation: 34 * Ferritin: 454 Monitor H/H Status: Acute History of hypothyroidism Assessment & Plan: Continue home medication: * Synthroid 88mcg PO daily * TSH normal Status: Acute Vertigo Resolved Vestibular Disequilibrium Right Ear Possibly secondary to drug-induced (Minocycline HCl - discontinued) * Zofran 4mg IV Q6H prn --> for associated nausea and vomiting Neurology consult ( Dr. Lee)---> Help appreciated As per neurology: * Hydration * Meclizine PRN * Plavix- patient to stay on plavix for 6 months * Out of bed * No further work up needed 01/02: HIV antibody 1 and 2 screen ordered: Negative RPR: Negative Imaging: ECHO: mild pulmonary hypertension. normal left ventricle, normal EF. CT head: No acute findings Brain MRI: No acute intracranial hemorrhage. Minimal of prolonged T2 signal changes seen in the periventricular white matter which may in part be related to CSF interface artifact however the possibility of some minimal concomitant chronic sequela of small vessel disease not excluded. Mild generalized volume loss. No enhancing masses. No evidence of unusual meningeal enhancement. Carotid doppler : Duplex scan does not suggest hemodynamically significant stenosis of the right and left extracranial carotid arteries Chest X-ray: Progressive bibasilar consolidations. Progressive infiltrates in this patient with underlying bibasilar bronchiectasis here is inferred. 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 normal left ventricle, normal EF. Lasix 20 mg once given 01/06 Ankle X-ray: No fracture or arthritis. Mild circumferential soft tissue swelling bilaterally. Pending b/l Doppler official report Elevated LFTs - RESOLVED 01/17: Patient's liver function test continue to rise; d/c motrin and benadryl 01/20: Abdominal US = R. hepatic steatosis Vs parenchymal infection/inflammation. No GS or biliary dilation Consulted ID (Zheng) to see if we can restart INH given the LFT return to baseline Prophylactic measure Assessment & Plan: SCDs Ambulating Pepcid 20mg PO BID Florastor 250mg PO BID Lovenox 40 mg stat dose given 01/23 Status: Acute Left a message for Dr. Engle quality assurance advisor requesting his evaluation and recommendations for patient's pulmonary condition. Case Discussed with Dr. Washington Landers PGY1
[2017-01-23] MEDS: Promethazine/Cod 6.25mg-10mg/5ml Syr UD PO PRN (21:43)
[2017-01-24] MEDS: Cefepime IV 2 gm in Dextrose 2 GM/100 ML BAG IVPB SCH ×4 (00:18→22:31)
[2017-01-24] MEDS: Clindamycin 600mg/50ml NS 600 MG/50 ML BAG IVPB SCH ×4 (00:19→23:42)
[2017-01-24] MEDS: Albuterol-Ipratrop 3 mg / 0.5 (3 ml) UD INH SCH ×4 (01:07→19:36)
[2017-01-24] MEDS: metroNIDAZOLE IV 500 mg/100 ml 500 MG/100 ML BAG IVPB SCH (05:38)
[2017-01-24] MEDS: Levothyroxine 88 MCG TAB PO SCH (05:39)
[2017-01-24 06:34] LABS: BASO # 0.1 K/uL (0.0-0.2); BASO % 0.3 % (0.0-2.0); EOS # 0.2 K/uL (0.0-0.7); EOS % 1.2 % (0.0-4.0); HEMATOCRIT 27.5 % (35.0-51.0); LYMPH % 10.5 % (20.0-40.0); MEAN CELL VOLUME 82.4 fL (80.0-94.0); MEAN CORPUSCULAR HEMOGLOBIN 27.5 pg (27.0-31.0); MEAN CORPUSCULAR HGB CONC 33.3 g/dL (33.0-37.0); MEAN PLATELET VOLUME 7.7 fL (7.2-11.7); MONO # 0.8 K/uL (0.0-0.8); MONO % 4.3 % (0.0-10.0); RED CELL DISTRIBUTION WIDTH 20.5 % (11.5-14.5); WHITE BLOOD COUNT 19.4 K/uL (4.8-10.8)
[2017-01-24 06:45] LABS: CHLORIDE 99 mmol/L (98-107); SODIUM 134 mmol/L (132-148)
[2017-01-24 06:46] LABS: POTASSIUM 3.9 mmol/L (3.6-5.2)
[2017-01-24 06:48] LABS: ALB/GLOB RATIO 0.5 (1.0-2.1); ALKALINE PHOSPHATASE 136 U/L (38-126); ALT/SGPT 61 U/L (21-72); AST/SGOT 41 U/L (17-59); BILIRUBIN,TOTAL 0.6 mg/dL (0.2-1.3); BLOOD UREA NITROGEN 10 mg/dL (9-20); CARBON DIOXIDE 25 mmol/L (22-30); GFR AFRICAN-AMERICAN > 60; GLUCOSE,RANDOM 80 mg/dL (75-110); TOTAL PROTEIN 7.3 g/dL (6.3-8.3)
[2017-01-24 06:49] LABS: CALCIUM 7.2 mg/dl (8.6-10.4)
--- NOTE | 2017-01-24 09:19 | CP.PCM.PN ---
Subjective - Date & Time of Evaluation Date of Evaluation: 01/24/17 Time of Evaluation: 07:00 - Subjective Subjective: Patient seen and examined at bedside. Patient reports chest pain only when coughing. Patient denies any SOB or respiratory distress. Patient reports that aside from the cough he has no other complaints. Objective - Vital Signs/Intake and Output Vital Signs (last 24 hours): Temp Pulse Resp BP Pulse Ox 98.5 F 96 H 18 98/51 L 97 01/24/17 07:00 01/24/17 07:00 01/24/17 07:00 01/24/17 07:00 01/24/17 07:00 Intake and Output: 01/24/17 01/24/17 06:59 18:59 Intake Total 300 Balance 300 - Medications Medications: Current Medications Acetaminophen (Tylenol 325mg Tab) 650 mg PO Q6 PRN PRN Reason: Fever >100.4 F Albuterol/Ipratropium (Duoneb 3 Mg/0.5 Mg (3 Ml) Ud) 3 ml INH RQ6 [facility] Last Admin: 01/24/17 07:28 Dose: 3 ml Aspirin (Aspirin Chewable) 81 mg PO DAILY [facility] Last Admin: 01/23/17 10:07 Dose: 81 mg Calcium Carbonate (Tums) 500 mg PO BID [facility] Last Admin: 01/23/17 18:00 Dose: 500 mg Docusate Sodium (Colace) 100 mg PO TID [facility] Last Admin: 01/23/17 17:59 Dose: 100 mg Famotidine (Pepcid) 20 mg PO BID [facility] Last Admin: 01/23/17 17:59 Dose: 20 mg Guaifenesin (Mucinex La) 600 mg PO BID [facility] Last Admin: 01/23/17 17:59 Dose: 600 mg Clindamycin Phosphate (Cleocin In Normal Saline Addvantage) 600 mg in 50 mls @ 50 mls/hr IVPB Q8H [facility] Last Admin: 01/24/17 08:10 Dose: 50 mls/hr Cefepime HCl (Maxipime Iv 2 Gm Premix) 2 gm in 100 mls @ 200 mls/hr IVPB Q8H [facility] Last Admin: 01/24/17 06:34 Dose: 200 mls/hr Levothyroxine Sodium (Synthroid) 88 mcg PO DAILY@0630 [facility] Last Admin: 01/24/17 05:39 Dose: 88 mcg Metronidazole (Flagyl) 500 mg PO Q8 [facility] Last Admin: 01/24/17 06:15 Dose: Not Given Ondansetron HCl (Zofran Inj) 4 mg IVP Q6H PRN PRN Reason: Nausea/Vomiting Promethazine HCl/Codeine (Phenergan/Codeine Oral Syrup) 5 ml PO Q4 PRN PRN Reason: Cough Last Admin: 01/23/17 21:43 Dose: 5 ml Saccharomyces Boulardii (Florastor) 250 mg PO BID [facility] Last Admin: 01/23/17 17:59 Dose: 250 mg - Labs Labs: 01/24/17 06:24 01/24/17 06:24 PT 13.2 SECONDS (9.7-12.2) H 01/20/17 19:37 INR 1.2 01/20/17 19:37 APTT 32 SECONDS (21-34) 01/20/17 19:37 - Constitutional Appears: No Acute Distress - Head Exam Head Exam: ATRAUMATIC, NORMAL INSPECTION, NORMOCEPHALIC - Eye Exam Eye Exam: EOMI, PERRL - ENT Exam ENT Exam: Mucous Membranes Moist - Respiratory Exam Additional comments: Coarse breath sounds bilaterally with slight wheezing left>right - Cardiovascular Exam Cardiovascular Exam: Tachycardia, +S1, +S2. absent: Murmur - GI/Abdominal Exam GI & Abdominal Exam: Soft, Normal Bowel Sounds. absent: Tenderness - Neurological Exam Neurological Exam: Alert, Awake, Oriented x3 - Skin Skin Exam: Dry, Intact, Normal Color, Warm Assessment and Plan - Assessment and Plan (Free Text) Plan: Leukocytosis Assessment & Plan: Consulted ID (Zheng) for increased WBC, ABx choice and wether or not to restart INH given his liver enzymes have returned to normal Started on IV Flagyl 500mg @ 100ml/hr due to increasing WBC WBC 01/24: 19.4 WBC 01/23: 20.5--started Flagyl 500 mg PO Q8 WBC 01/22: 18.7 - repeated blood cultures, sputum cultures, urine cultures WBC 01/21: 14.7 WBC 01/20: 12.9 WBC on 01/15: 7.5, bands 23 WBC on 01/14: 8.7 WBC 9.6 on 01/13 CXR (01/06/17):hypoinflation, bronchovascular crowing, bibasilar atelectasis or infiltrates, probable trace bilateral pleural effusions as per Dr. Carias, patient put on isolation parameters CT/C/A/P (01/09/17): Segmental atelectasis with bronchiectasis bibasally. Scattered areas of thickening in intralobular septum in subpleural lung. DDX include interstitial pneumonia, chronic aspiration, sarcoid, connective tissue disease, cryptogenic organizing pneumoina, broncheoalveolar carcinoma. AFB 01/07: PRELIM - negative, 2nd AFB 01/07 - PRELIM - negative, AFB 01/03: PRELIM - negative AFB culture (01/06/17): No acid fast bacilli seen CRP >15 LDH>750 ESR (01/09/17) 101, (01/07/17) ESR 79 Legionella, Strep Pneumo (-), Mycoplasma pending procalcitonin<.05 dopplers of lower and upper extremities: negative except abnormal finding of right cephalic vein -aspirin 81mg daily HIV negative 01/11: blood and urine cultures no growth for 24 hours Diffuse Macular Rash - Resolved possibly secondary to antibiotics as per ID, Dr. Carias, antibiotics stopped since cultures are negative, will continue to monitor as patient believes the rash started before he was hospitalized started on Ketoconazole cream for possible fungal infection Respiratory infection Consider multilobar PNA - Cont Zosyn 3.375 IV Q6 and add IV Flagyl 500mg @ 100ml /hr per pulm (Mike) quantiferon test result - indeterminate AFB (-) x 4 started B6 25 mg PO daily (01/05) F/u with patient's PMD regarding TB diagnosis: * As per conversation with Dr. Pete Gresham and Dr. Stoll (who was covering for PMD Dr. Bran Klein [phone]) on 01/02/17 and he confirmed that patient was being treated with Isoniazid 300 mg PO 1x/day by Dr. Klein for TB Prophylaxis Imaging: CT chest: No significant interval change in the lungs since the previous exam. Interval slight increase in the size of the pleural effusion. Otherwise no significant interval change 01/01 Chest X-ray: Progressive bibasilar consolidations. Progressive infiltrates in this patient with underlying bibasilar bronchiectasis here is inferred. Inferolateral pleural effusions with pleural thickening 01/19 CXR: bibasilar opacities, opacitiy in Right upper lobe, small b/l pleural effusion 01/21: Chest CT --> interstital pneumonitis Vs collagen vascular disease Vs Cryptogenic organizing pneumonia V sarcoid Duoneb Q6 MARY ELLEN started 01/23/17 Fever PNA 01/24: Tmax 99.8 01/23: Tmax 99.8 01/22: Tmax 99.4 01/20: Tmax 99.8 Added hypothermic blanket 01/19: Tmax 100.2 01/17: Tmax 101.6 01/14: tmax 102.7 01/13: 23:20 fever of 102.8 01/12: Tmax 103 at 22:40 01/12: fever of 102 at 7:35 f/u speech and swallow- although patient appears to be tolerating PO intake at this time, coughing was noted during his meal and patient reports that coughing increases while eating. Suggest a modified barium swallow to r/o aspiration modified barium swallow(01/13): no penetration or aspiration observed aspiration precautions 01/09: Afebrile overnight ID consult (Dr. Carias), help appreciated Tmax: 100.6 (01/01/17) Blood culture/ gram stain (01/01): (+) for gram positive cocci/ Coagulase negative staphylococcus blood culture(01/11): no growth for 48 hours urine culture (01/11): no growth blood culture (01/15): no growth for 24 hours Status: Acute Bacteremia Repeated blood, sputum and urine cultures ID Consult (Dr. Carias on board), help appreciated. Dr. Carias stopped antibiotics on 01/14 01/19: blood cultures pending 01/15: Repeat urine culture negative blood culture (01/15): negative for 48 hours Blood culture repeat on 01/02 negative for 72 hours, Urine Culture 01/01 negative Blood culture/ gram stain : (+) for gram positive cocci/ Coagulase negative staphylococcus Lactate: 734 (01/13) Status: Acute Pancreatic Lesion 01/19: Dr. Lowe will do EUS Thursday to evaluate pancreatic tail mass, stop anticoag and NPO Thursday night CT C/A/P (01/08/17): 8mm low density lesion in tail of pancreas. Report from CT indicated a 3mm lesion in the pancreatic tail. No old study to compare. Recommend further evaluation with pancreas dedicated MRI w MRCP (see full report ) Dr. Jonas, GI consulted: help appreciated MRCP: 4mm T1 hypo intense focus at pancreatic tail consistent with finding on recent CT, cannot be further characterized 2.2 cm T2 hyperintense T1 hypo intense lesion in right kidney consistent with previously demonstrated cyst CA 19-9: 01/12-10.3, 01/13- 10.1, 01/14- 11.6 -IR for biopsy of pancreas * Dr. Jacobson consulted, help appreciated, --lesion to small to biopsy, will continue to follow CT Pancreas (01/19): redemonstrated pancreatic mass. GI recs = repeat imaging in 6mo Superficial Thrombophlebitis * Venous doppler (01/08/17): acute thrombosis of right cephalic vein and no evidence of vein thrombosis with left upper extremity w excellent venous flow. * Venous doppler (01/08/17): No DVT nor SVT bilateral lower extremities * Aspirin 81mg PO daily Constipation - RESOLVED Assessment & Plan: MRCP (01/14) showed severe constipation Miralax given which helped patient have a bowel movement Started on Colace 100 mg po TID Status: Acute Anemia Assessment & Plan: 01/21: 8.9/27.1 01/20: 9.3/28.8 01/19: 9.7/29 01/16: 10.7/32.4 01/12: 10.7/ 32.1 Stable H/H on admission: 11.1/34.6 Iron studies: * Iron 75 * TIBC : 207 * % Saturation: 34 * Ferritin: 454 Monitor H/H Status: Acute History of hypothyroidism Assessment & Plan: Continue home medication: * Synthroid 88mcg PO daily * TSH normal Status: Acute Vertigo Resolved Vestibular Disequilibrium Right Ear Possibly secondary to drug-induced (Minocycline HCl - discontinued) * Zofran 4mg IV Q6H prn --> for associated nausea and vomiting Neurology consult ( Dr. Lee)---> Help appreciated As per neurology: * Hydration * Meclizine PRN * Plavix- patient to stay on plavix for 6 months * Out of bed * No further work up needed 01/02: HIV antibody 1 and 2 screen ordered: Negative RPR: Negative Imaging: ECHO: mild pulmonary hypertension. normal left ventricle, normal EF. CT head: No acute findings Brain MRI: No acute intracranial hemorrhage. Minimal of prolonged T2 signal changes seen in the periventricular white matter which may in part be related to CSF interface artifact however the possibility of some minimal concomitant chronic sequela of small vessel disease not excluded. Mild generalized volume loss. No enhancing masses. No evidence of unusual meningeal enhancement. Carotid doppler : Duplex scan does not suggest hemodynamically significant stenosis of the right and left extracranial carotid arteries Chest X-ray: Progressive bibasilar consolidations. Progressive infiltrates in this patient with underlying bibasilar bronchiectasis here is inferred. Inferolateral pleural effusions with pleural thickening -renoted Diarrhea - RESOLVED Assessment & Plan: Testing for C.diff again given custodial antibiotic therapy C dif toxin, stool culture, ova and parasite: all negative Flagyl stopped Status: Resolved Lower Extremity Edema Gave Albumin 25% 12.5g IV to increase levels and reduce extravesation in order to control LE Edema Echo:mild pulmonary hypertension. normal left ventricle, normal EF. Lasix 20 mg once given 01/06 Ankle X-ray: No fracture or arthritis. Mild circumferential soft tissue swelling bilaterally. Pending b/l Doppler official report Elevated LFTs - RESOLVED 01/17: Patient's liver function test continue to rise; d/c motrin and benadryl 01/20: Abdominal US = R. hepatic steatosis Vs parenchymal infection/inflammation. No GS or biliary dilation Consulted ID (Zheng) to see if we can restart INH given the LFT return to baseline Prophylactic measure Assessment & Plan: SCDs Ambulating Pepcid 20mg PO BID Florastor 250mg PO BID Lovenox 40 mg stat dose given 01/23 Status: Acute 01/23/17 Left a message for Dr. Engle senior qualitative researcher requesting his evaluation and recommendations for patient's pulmonary condition. 01/24/17 Put in formal consult for re-evaluation for Dr. Engle senior qualitative researcher requesting his evaluation and recommendations for patient's pulmonary condition. Case Discussed with Dr. Washington Landers PGY1
[2017-01-24] MEDS: guaiFENesin 600 mg ER Tab PO SCH ×2 (10:03→18:11)
[2017-01-24] MEDS: Saccharomyces Boulardi 250 mg Cap PO SCH ×2 (10:04→18:11)
[2017-01-24] MEDS: Calcium Carbonate 500 mg Chewable Antacid Tab PO SCH ×2 (10:04→18:11)
[2017-01-25] MEDS: Albuterol-Ipratrop 3 mg / 0.5 (3 ml) UD INH SCH ×4 (02:16→19:14)
--- NOTE | 2017-01-25 04:58 | CP.PCM.PN ---
Subjective - Date & Time of Evaluation Date of Evaluation: 01/25/17 Time of Evaluation: 04:55 - Subjective Subjective: PGY-[address] Delarosa HPI: Patient seen and examined at bedside. Doing well. Spiked a 103 Fever over night. Complains of a cough and chest pain when coughing. No other complaints at this time. Denies N/V/C/SOB. Objective - Vital Signs/Intake and Output Vital Signs (last 24 hours): Temp Pulse Resp BP Pulse Ox 97.3 F L 75 20 98/61 L 100 01/25/17 04:39 01/25/17 04:39 01/25/17 04:39 01/25/17 04:39 01/25/17 04:39 Intake and Output: 01/24/17 01/25/17 18:59 06:59 Intake Total 550 570 Balance 550 570 - Medications Medications: Current Medications Acetaminophen (Tylenol 325mg Tab) 650 mg PO Q6 PRN PRN Reason: Fever >100.4 F Last Admin: 01/24/17 23:45 Dose: 650 mg Albuterol/Ipratropium (Duoneb 3 Mg/0.5 Mg (3 Ml) Ud) 3 ml INH RQ6 [facility] Last Admin: 01/25/17 02:16 Dose: Not Given Aspirin (Aspirin Chewable) 81 mg PO DAILY [facility] Last Admin: 01/24/17 10:03 Dose: 81 mg Calcium Carbonate (Tums) 500 mg PO BID [facility] Last Admin: 01/24/17 18:11 Dose: 500 mg Docusate Sodium (Colace) 100 mg PO TID [facility] Last Admin: 01/24/17 18:11 Dose: 100 mg Famotidine (Pepcid) 20 mg PO BID [facility] Last Admin: 01/24/17 18:11 Dose: 20 mg Guaifenesin (Mucinex La) 600 mg PO BID [facility] Last Admin: 01/24/17 18:11 Dose: 600 mg Clindamycin Phosphate (Cleocin In Normal Saline Addvantage) 600 mg in 50 mls @ 50 mls/hr IVPB Q8H [facility] Last Admin: 01/24/17 23:42 Dose: 50 mls/hr Cefepime HCl (Maxipime Iv 2 Gm Premix) 2 gm in 100 mls @ 200 mls/hr IVPB Q8H [facility] Last Admin: 01/24/17 22:31 Dose: 200 mls/hr Levothyroxine Sodium (Synthroid) 88 mcg PO DAILY@0630 [facility] Last Admin: 01/24/17 05:39 Dose: 88 mcg Metronidazole (Flagyl) 500 mg PO Q8 [facility] Last Admin: 01/24/17 21:20 Dose: 500 mg Ondansetron HCl (Zofran Inj) 4 mg IVP Q6H PRN PRN Reason: Nausea/Vomiting Promethazine HCl/Codeine (Phenergan/Codeine Oral Syrup) 5 ml PO Q4 PRN PRN Reason: Cough Last Admin: 01/23/17 21:43 Dose: 5 ml Saccharomyces Boulardii (Florastor) 250 mg PO BID [facility] Last Admin: 01/24/17 18:11 Dose: 250 mg - Labs Labs: 01/24/17 06:24 01/24/17 06:24 PT 13.2 SECONDS (9.7-12.2) H 01/20/17 19:37 INR 1.2 01/20/17 19:37 APTT 32 SECONDS (21-34) 01/20/17 19:37 - Constitutional Appears: Well, No Acute Distress - Head Exam Head Exam: NORMAL INSPECTION - Eye Exam Eye Exam: EOMI - ENT Exam ENT Exam: Mucous Membranes Moist - Respiratory Exam Respiratory Exam: Rhonchi (b/l) - Cardiovascular Exam Cardiovascular Exam: Bradycardia, Tachycardia, REGULAR RHYTHM, RRR. absent: Clicks, Diastolic murmur, Gallop, Irregular Rhythm, Rubs, Murmur - GI/Abdominal Exam GI & Abdominal Exam: Soft, Normal Bowel Sounds. absent: Bruit, Distended, Firm , Guarding, Rigid, Tenderness, Rebound - Neurological Exam Neurological Exam: Alert, Awake, Oriented x3 - Psychiatric Exam Psychiatric exam: Normal Affect, Normal Mood - Skin Skin Exam: Dry, Intact, Normal Color, Warm Assessment and Plan - Assessment and Plan (Free Text) Assessment: Leukocytosis Assessment & Plan: Consulted ID (Zheng) for increased WBC, ABx choice and wether or not to restart INH given his liver enzymes have returned to normal Started on IV Flagyl 500mg @ 100ml/hr due to increasing WBC WBC 8/5: 19.4 WBC 8/4: 20.5--started Flagyl 500 mg PO Q8 WBC 8/3: 18.7 - repeated blood cultures, sputum cultures, urine cultures WBC 01/21: 14.7 WBC 01/20: 12.9 WBC on 01/15: 7.5, bands 23 WBC on 01/14: 8.7 WBC 9.6 on 01/13 CXR (01/06/17):hypoinflation, bronchovascular crowing, bibasilar atelectasis or infiltrates, probable trace bilateral pleural effusions as per Dr. Carias, patient put on isolation parameters CT/C/A/P (01/09/17): Segmental atelectasis with bronchiectasis bibasally. Scattered areas of thickening in intralobular septum in subpleural lung. DDX include interstitial pneumonia, chronic aspiration, sarcoid, connective tissue disease, cryptogenic organizing pneumoina, broncheoalveolar carcinoma. AFB 01/07: PRELIM - negative, 2nd AFB 01/07 - PRELIM - negative, AFB 01/03: PRELIM - negative AFB culture (01/06/17): No acid fast bacilli seen CRP >15 LDH>750 ESR (01/09/17) 101, (01/07/17) ESR 79 Legionella, Strep Pneumo (-), Mycoplasma pending procalcitonin<.05 dopplers of lower and upper extremities: negative except abnormal finding of right cephalic vein -aspirin 81mg daily HIV negative 01/11: blood and urine cultures no growth for 24 hours Diffuse Macular Rash - Resolved possibly secondary to antibiotics as per ID, Dr. Carias, antibiotics stopped since cultures are negative, will continue to monitor as patient believes the rash started before he was hospitalized started on Ketoconazole cream for possible fungal infection Respiratory infection Waiting on pulm reccs-Put in formal consult for re-evaluation for Dr. Engle practice consultant requesting his evaluation and recommendations for patient's pulmonary condition. Consider multilobar PNA - Cont Zosyn 3.375 IV Q6 and add IV Flagyl 500mg @ 100ml /hr per pulm (Mike) quantiferon test result - indeterminate AFB (-) x 4 started B6 25 mg PO daily (01/05) F/u with patient's PMD regarding TB diagnosis: * As per conversation with Dr. Pete Gresham and Dr. Stoll (who was covering for PMD Dr. Bran Klein [phone]) on 01/02/17 and he confirmed that patient was being treated with Isoniazid 300 mg PO 1x/day by Dr. Klein for TB Prophylaxis Imaging: CT chest: No significant interval change in the lungs since the previous exam. Interval slight increase in the size of the pleural effusion. Otherwise no significant interval change 01/01 Chest X-ray: Progressive bibasilar consolidations. Progressive infiltrates in this patient with underlying bibasilar bronchiectasis here is inferred. Inferolateral pleural effusions with pleural thickening 01/19 CXR: bibasilar opacities, opacitiy in Right upper lobe, small b/l pleural effusion 01/21: Chest CT --> interstital pneumonitis Vs collagen vascular disease Vs Cryptogenic organizing pneumonia V sarcoid Duoneb Q6 MARY ELLEN started 01/23/17 Fever PNA 01/24: Tmax 103.0 01/24: Tmax 99.8 01/23: Tmax 99.8 01/22: Tmax 99.4 01/20: Tmax 99.8 Added hypothermic blanket 01/19: Tmax 100.2 01/17: Tmax 101.6 01/14: tmax 102.7 01/13: 23:20 fever of 102.8 01/12: Tmax 103 at 22:40 01/12: fever of 102 at 7:35 f/u speech and swallow- although patient appears to be tolerating PO intake at this time, coughing was noted during his meal and patient reports that coughing increases while eating. Suggest a modified barium swallow to r/o aspiration modified barium swallow(01/13): no penetration or aspiration observed aspiration precautions 01/09: Afebrile overnight ID consult (Dr. Carias), help appreciated Tmax: 100.6 (01/01/17) Blood culture/ gram stain (01/01): (+) for gram positive cocci/ Coagulase negative staphylococcus blood culture(01/11): no growth for 48 hours urine culture (01/11): no growth blood culture (01/15): no growth for 24 hours Status: Acute Bacteremia Repeated blood, sputum and urine cultures ID Consult (Dr. Carias on board), help appreciated. Dr. Carias stopped antibiotics on 01/14 01/19: blood cultures pending 01/15: Repeat urine culture negative blood culture (01/15): negative for 48 hours Blood culture repeat on 01/02 negative for 72 hours, Urine Culture 01/01 negative Blood culture/ gram stain : (+) for gram positive cocci/ Coagulase negative staphylococcus Lactate: 734 (01/13) Status: Acute Pancreatic Lesion 01/19: Dr. Lowe will do EUS Thursday to evaluate pancreatic tail mass, stop anticoag and NPO Thursday night CT C/A/P (01/08/17): 8mm low density lesion in tail of pancreas. Report from CT indicated a 3mm lesion in the pancreatic tail. No old study to compare. Recommend further evaluation with pancreas dedicated MRI w MRCP (see full report ) Dr. Jonas, GI consulted: help appreciated MRCP: 4mm T1 hypo intense focus at pancreatic tail consistent with finding on recent CT, cannot be further characterized 2.2 cm T2 hyperintense T1 hypo intense lesion in right kidney consistent with previously demonstrated cyst CA 19-9: 01/12-10.3, 01/13- 10.1, 01/14- 11.6 -IR for biopsy of pancreas * Dr. Jacobson consulted, help appreciated, --lesion to small to biopsy, will continue to follow CT Pancreas (01/19): redemonstrated pancreatic mass. GI recs = repeat imaging in 6mo Superficial Thrombophlebitis * Venous doppler (01/08/17): acute thrombosis of right cephalic vein and no evidence of vein thrombosis with left upper extremity w excellent venous flow. * Venous doppler (01/08/17): No DVT nor SVT bilateral lower extremities * Aspirin 81mg PO daily Constipation - RESOLVED Assessment & Plan: MRCP (01/14) showed severe constipation Miralax given which helped patient have a bowel movement Started on Colace 100 mg po TID Status: Acute Anemia Assessment & Plan: 01/21: 8.9/27.1 01/20: 9.3/28.8 01/19: 9.7/29 01/16: 10.7/32.4 01/12: 10.7/ 32.1 Stable H/H on admission: 11.1/34.6 Iron studies: * Iron 75 * TIBC : 207 * % Saturation: 34 * Ferritin: 454 Monitor H/H Status: Acute History of hypothyroidism Assessment & Plan: Continue home medication: * Synthroid 88mcg PO daily * TSH normal Status: Acute Vertigo Resolved Vestibular Disequilibrium Right Ear Possibly secondary to drug-induced (Minocycline HCl - discontinued) * Zofran 4mg IV Q6H prn --> for associated nausea and vomiting Neurology consult ( Dr. Lee)---> Help appreciated As per neurology: * Hydration * Meclizine PRN * Plavix- patient to stay on plavix for 6 months * Out of bed * No further work up needed 01/02: HIV antibody 1 and 2 screen ordered: Negative RPR: Negative Imaging: ECHO: mild pulmonary hypertension. normal left ventricle, normal EF. CT head: No acute findings Brain MRI: No acute intracranial hemorrhage. Minimal of prolonged T2 signal changes seen in the periventricular white matter which may in part be related to CSF interface artifact however the possibility of some minimal concomitant chronic sequela of small vessel disease not excluded. Mild generalized volume loss. No enhancing masses. No evidence of unusual meningeal enhancement. Carotid doppler : Duplex scan does not suggest hemodynamically significant stenosis of the right and left extracranial carotid arteries Chest X-ray: Progressive bibasilar consolidations. Progressive infiltrates in this patient with underlying bibasilar bronchiectasis here is inferred. 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 normal left ventricle, normal EF. Lasix 20 mg once given 01/06 Ankle X-ray: No fracture or arthritis. Mild circumferential soft tissue swelling bilaterally. Pending b/l Doppler official report Elevated LFTs - RESOLVED 01/17: Patient's liver function test continue to rise; d/c motrin and benadryl 01/20: Abdominal US = R. hepatic steatosis Vs parenchymal infection/inflammation. No GS or biliary dilation Consulted ID (Zheng) to see if we can restart INH given the LFT return to baseline Prophylactic measure Assessment & Plan: SCDs Ambulating Pepcid 20mg PO BID Florastor 250mg PO BID Lovenox 40 mg stat dose given 01/23 Status: Acute 01/23/[address] Left a message for Dr. Engle practice consultant requesting his evaluation and recommendations for patient's pulmonary condition. 01/24/17 Put in formal consult for re-evaluation for Dr. Engle practice consultant requesting his evaluation and recommendations for patient's pulmonary condition.
[2017-01-25] MEDS: Levothyroxine 88 MCG TAB PO SCH (06:55)
[2017-01-25] MEDS: Cefepime IV 2 gm in Dextrose 2 GM/100 ML BAG IVPB SCH (06:55)
[2017-01-25 07:32] LABS: BASO % 0.3 % (0.0-2.0); EOS # 0.4 K/uL (0.0-0.7); EOS % 3.1 % (0.0-4.0); HEMATOCRIT 27.8 % (35.0-51.0); LYMPH # 1.3 K/uL (1.0-4.3); LYMPH % 10.3 % (20.0-40.0); MEAN CELL VOLUME 82.5 fL (80.0-94.0); MEAN CORPUSCULAR HEMOGLOBIN 27.2 pg (27.0-31.0); MEAN PLATELET VOLUME 7.9 fL (7.2-11.7); MONO # 0.3 K/uL (0.0-0.8); MONO % 2.4 % (0.0-10.0); NRBC % 0.1 % (0.0-2.0); WHITE BLOOD COUNT 12.6 K/uL (4.8-10.8)
[2017-01-25 07:55] LABS: CHLORIDE 99 mmol/L (98-107); POTASSIUM 3.8 mmol/L (3.6-5.2); SODIUM 135 mmol/L (132-148)
[2017-01-25 07:57] LABS: GFR AFRICAN-AMERICAN > 60
[2017-01-25 07:58] LABS: ALB/GLOB RATIO 0.5 (1.0-2.1); ALKALINE PHOSPHATASE 121 U/L (38-126); ALT/SGPT 51 U/L (21-72); AST/SGOT 46 U/L (17-59); BILIRUBIN,TOTAL 0.6 mg/dL (0.2-1.3); BLOOD UREA NITROGEN 12 mg/dL (9-20); CARBON DIOXIDE 25 mmol/L (22-30); GLUCOSE,RANDOM 75 mg/dL (75-110); TOTAL PROTEIN 7.5 g/dL (6.3-8.3)
[2017-01-25 07:59] LABS: CALCIUM 7.4 mg/dl (8.6-10.4)
[2017-01-25] MEDS: Clindamycin 600mg/50ml NS 600 MG/50 ML BAG IVPB SCH (08:34)
[2017-01-25] MEDS: guaiFENesin 600 mg ER Tab PO SCH ×2 (09:38→17:17)
[2017-01-25] MEDS: Calcium Carbonate 500 mg Chewable Antacid Tab PO SCH ×2 (09:38→17:18)
[2017-01-25] MEDS: Saccharomyces Boulardi 250 mg Cap PO SCH ×2 (09:38→17:17)
--- NOTE | 2017-01-25 14:32 | CP.PCM.PN ---
Subjective - Date & Time of Evaluation Date of Evaluation: 01/25/17 Time of Evaluation: 09:00 - Subjective Subjective: spiked to 103 last evening denies chest pain + cough with exertional dyspnea has bronchial breath sounds and rales right base Objective - Vital Signs/Intake and Output Vital Signs (last 24 hours): Temp Pulse Resp BP Pulse Ox 98.4 F 82 21 101/62 100 01/25/17 08:15 01/25/17 08:15 01/25/17 08:15 01/25/17 08:15 01/25/17 08:15 Intake and Output: 01/25/17 01/25/17 06:59 18:59 Intake Total 870 Balance 870 - Medications Medications: Current Medications Acetaminophen (Tylenol 325mg Tab) 650 mg PO Q6 PRN PRN Reason: Fever >100.4 F Last Admin: 01/24/17 23:45 Dose: 650 mg Albuterol/Ipratropium (Duoneb 3 Mg/0.5 Mg (3 Ml) Ud) 3 ml INH RQ6 [facility] Last Admin: 01/25/17 13:28 Dose: 3 ml Aspirin (Aspirin Chewable) 81 mg PO DAILY [facility] Last Admin: 01/25/17 09:38 Dose: 81 mg Calcium Carbonate (Tums) 500 mg PO BID [facility] Last Admin: 01/25/17 09:38 Dose: 500 mg Docusate Sodium (Colace) 100 mg PO TID [facility] Last Admin: 01/25/17 14:15 Dose: 100 mg Famotidine (Pepcid) 20 mg PO BID [facility] Last Admin: 01/25/17 09:38 Dose: 20 mg Guaifenesin (Mucinex La) 600 mg PO BID [facility] Last Admin: 01/25/17 09:38 Dose: 600 mg Levothyroxine Sodium (Synthroid) 88 mcg PO DAILY@0630 [facility] Last Admin: 01/25/17 06:55 Dose: 88 mcg Ondansetron HCl (Zofran Inj) 4 mg IVP Q6H PRN PRN Reason: Nausea/Vomiting Promethazine HCl/Codeine (Phenergan/Codeine Oral Syrup) 5 ml PO Q4 PRN PRN Reason: Cough Last Admin: 01/23/17 21:43 Dose: 5 ml Saccharomyces Boulardii (Florastor) 250 mg PO BID [facility] Last Admin: 01/25/17 09:38 Dose: 250 mg - Labs Labs: 01/25/17 07:17 01/25/17 07:17 PT 13.2 SECONDS (9.7-12.2) H 01/20/17 19:37 INR 1.2 01/20/17 19:37 APTT 32 SECONDS (21-34) 01/20/17 19:37 - Constitutional Appears: Non-toxic, Chronically Ill - Head Exam Head Exam: NORMOCEPHALIC - Eye Exam Eye Exam: PERRL - ENT Exam ENT Exam: Mucous Membranes Dry - Neck Exam Neck Exam: absent: Lymphadenopathy - Respiratory Exam Respiratory Exam: Decreased Breath Sounds - Cardiovascular Exam Cardiovascular Exam: REGULAR RHYTHM - GI/Abdominal Exam GI & Abdominal Exam: Distended, Soft - Rectal Exam Rectal Exam: Deferred - Exam Exam: NORMAL INSPECTION - Extremities Exam Extremities Exam: absent: Pedal Edema - Back Exam Back Exam: absent: CVA tenderness (L), CVA tenderness (R) - Neurological Exam Neurological Exam: Alert, Awake, Oriented x3 - Skin Skin Exam: Dry Assessment and Plan (1) Allergic drug rash due to anti-infective agent Status: Acute (2) Aspiration into lower respiratory tract Status: Acute (3) PPD+ (purified protein derivative positive) Status: Acute - Assessment and Plan (Free Text) Plan: recc: pulmonary follow up hold IV antibiotics reculture for fever may need FOB, Lung Bx ? AFB smears and quantiferon negative check SIM levels if not done, work up for [place] if not done
[2017-01-26] MEDS: Albuterol-Ipratrop 3 mg / 0.5 (3 ml) UD INH SCH ×3 (01:56→13:09)
--- NOTE | 2017-01-26 04:17 | PCM.RRTMUL ---
RN PROVIDER RELATIONS Nurses Assessment - Situation RN PROVIDER RELATIONS Responder Arrival Time:: 04:03 Location:: Room Number:: 660B RN PROVIDER RELATIONS Reason for Call: Tachycardia (Ventricular) RN PROVIDER RELATIONS Called By: RN - IV IV Inserted during RN PROVIDER RELATIONS?: No - Respiratory Oxygen Delivery Method:: Room Air Received Nebulizer Treatments:: No Was the Patient Ventilated with Bag/Mask 100% O2?: No Secretions Suctioned?: No Was the Patient Intubated?: No Was the Patient Placed on a Ventilator?: No - Ventilator Settings SAO2 %:: 97 - Diagnostic Test Ordered EKG:: Yes - Stat Labs Ordered RN PROVIDER RELATIONS Stat Labs Ordered:: CBC, TROPONIN CPR started during RN PROVIDER RELATIONS?: No - Vital Signs Blood Pressure:: 111/65 Pulse Rate:: 92 Respiratory Rate:: 18 Temperature:: 99.6 F Oxygen Saturation:: 97 - Recommendations 5) RN PROVIDER RELATIONS Level of Care Recommendations: Remain in current setting 6) Notifications: Attending Physician I.Reason for RN PROVIDER RELATIONS - A) Acute Change in Patient: (Select all that apply): Staff member or family is worried about patient - B) Neurological Status (Select all that apply): Alert, Responsive, Oriented, Verbal, Follows Commands - C) Respiratory Oxygen Delivery Method: Room Air - Constitutional Appears: Non-toxic, No Acute Distress - Head Head Exam: ATRAUMATIC, NORMAL INSPECTION, NORMOCEPHALIC - Eyes Eye Exam: EOMI, Normal appearance, PERRL - Respiratory Exam Respiratory Exam: NORMAL BREATHING PATTERN. absent: Wheezes - Cardiovascular Exam Cardiovascular Exam: Tachycardia, +S1, +S2 - GI/Abdominal Exam GI & Abdominal Exam: Soft, Normal Bowel Sounds. absent: Tenderness - Neurological Exam Neurological Exam: Alert, Awake, Oriented x3 - Extremities Exam Extremities Exam: Full ROM Plan - A. End of RN PROVIDER RELATIONS Vital Signs: Blood Pressure: 107/62 Pulse Rate: 109 Respiratory Rate: 17 Temperature: 99.6 F O2 Sat by Pulse Oximetry: 97 - B. Assessment of Findings&Treatment Plan Pt seen and examined in no apparent acute distress. Rapid response called at 4: 02AM after patient had 18 beats of ventricular tachycardia witnessed on the players assistant. Patient was asleep at the time and had to be roused awake. Patient was responsive and alert and responsive to commands. EKG ordered which showed sinus tachycardia. Echocardiogram orderd . Cardiology consult placed. Routine labs CBC, CMP, BENITEZ and Thyroid studies. Will follow up. Patient remained, awake, alert and oriented throughout the encounter.
[2017-01-26] MEDS ORDERED: Sodium Chloride 0.9% 1,000 ML IV ONE (04:30)
[2017-01-26 04:44] LABS: BASO # 0.1 K/uL (0.0-0.2); BASO % 0.4 % (0.0-2.0); EOS # 0.4 K/uL (0.0-0.7); EOS % 2.7 % (0.0-4.0); HEMATOCRIT 27.6 % (35.0-51.0); LYMPH # 1.2 K/uL (1.0-4.3); LYMPH % 7.9 % (20.0-40.0); MEAN CELL VOLUME 81.3 fL (80.0-94.0); MEAN CORPUSCULAR HEMOGLOBIN 27.1 pg (27.0-31.0); MEAN CORPUSCULAR HGB CONC 33.4 g/dL (33.0-37.0); MEAN PLATELET VOLUME 7.4 fL (7.2-11.7); MONO # 0.4 K/uL (0.0-0.8); MONO % 2.7 % (0.0-10.0); PLATELET COUNT 570 K/uL (130-400); RED CELL DISTRIBUTION WIDTH 19.8 % (11.5-14.5); WHITE BLOOD COUNT 15.9 K/uL (4.8-10.8)
[2017-01-26 05:15] LABS: ALB/GLOB RATIO 0.5 (1.0-2.1); ALKALINE PHOSPHATASE 117 U/L (38-126); ALT/SGPT 41 U/L (21-72); AST/SGOT 37 U/L (17-59); BILIRUBIN,TOTAL 0.2 mg/dL (0.2-1.3); BLOOD UREA NITROGEN 19 mg/dL (9-20); CALCIUM 7.3 mg/dl (8.6-10.4); CARBON DIOXIDE 25 mmol/L (22-30); CHLORIDE 98 mmol/L (98-107); GFR AFRICAN-AMERICAN > 60; GLUCOSE,RANDOM 94 mg/dL (75-110); SODIUM 132 mmol/L (132-148); TOTAL PROTEIN 7.1 g/dL (6.3-8.3)
[2017-01-26] MEDS: Levothyroxine 88 MCG TAB PO SCH (05:38)
[2017-01-26 05:44] LABS: NEUTROPHIL 88 % (50-75); TOTAL CELLS COUNTED 100
--- NOTE | 2017-01-26 07:45 | CP.PCM.PN ---
<Juan Francisco Gonzales - Last Filed: 01/26/17 17:36> Subjective - Date & Time of Evaluation Date of Evaluation: 01/26/17 Time of Evaluation: 07:43 - Subjective Subjective: HPI: Patient seen and examined at bedside. Doing well. Complaining of some SOB over night but no chest pain. Has no other complaints at this time. Denies fever , N/V/Chills. States that the swelling in his legs and wrists have decreased. Had a RR called last inght for asymptomatic Vtach that converted on its own. Cardio on board. Objective - Vital Signs/Intake and Output Vital Signs (last 24 hours): Temp Pulse Resp BP Pulse Ox 98.4 F 96 H 20 103/61 97 01/26/17 07:39 01/26/17 07:39 01/26/17 07:39 01/26/17 07:39 01/26/17 07:39 Intake and Output: 01/26/17 01/26/17 06:59 18:59 Intake Total 1620 Balance 1620 - Medications Medications: Current Medications Acetaminophen (Tylenol 325mg Tab) 650 mg PO Q6 PRN PRN Reason: Fever >100.4 F Last Admin: 01/24/17 23:45 Dose: 650 mg Albuterol/Ipratropium (Duoneb 3 Mg/0.5 Mg (3 Ml) Ud) 3 ml INH RQ6 [facility] Last Admin: 01/26/17 01:56 Dose: 3 ml Aspirin (Aspirin Chewable) 81 mg PO DAILY [facility] Last Admin: 01/25/17 09:38 Dose: 81 mg Calcium Carbonate (Tums) 500 mg PO BID [facility] Last Admin: 01/25/17 17:18 Dose: 500 mg Docusate Sodium (Colace) 100 mg PO TID [facility] Last Admin: 01/25/17 17:17 Dose: 100 mg Famotidine (Pepcid) 20 mg PO BID [facility] Last Admin: 01/25/17 17:17 Dose: 20 mg Guaifenesin (Mucinex La) 600 mg PO BID [facility] Last Admin: 01/25/17 17:17 Dose: 600 mg Levothyroxine Sodium (Synthroid) 88 mcg PO DAILY@0630 [facility] Last Admin: 01/26/17 05:38 Dose: 88 mcg Ondansetron HCl (Zofran Inj) 4 mg IVP Q6H PRN PRN Reason: Nausea/Vomiting Promethazine HCl/Codeine (Phenergan/Codeine Oral Syrup) 5 ml PO Q4 PRN PRN Reason: Cough Last Admin: 01/23/17 21:43 Dose: 5 ml Saccharomyces Boulardii (Florastor) 250 mg PO BID [facility] Last Admin: 01/25/17 17:17 Dose: 250 mg - Labs Labs: 01/26/17 04:36 01/26/17 04:36 PT 13.2 SECONDS (9.7-12.2) H 01/20/17 19:37 INR 1.2 01/20/17 19:37 APTT 32 SECONDS (21-34) 01/20/17 19:37 - Constitutional Appears: Well, No Acute Distress - Head Exam Head Exam: ATRAUMATIC, NORMAL INSPECTION, NORMOCEPHALIC - Eye Exam Eye Exam: EOMI, Normal appearance - ENT Exam ENT Exam: Mucous Membranes Moist - Neck Exam Neck Exam: Normal Inspection - Respiratory Exam Respiratory Exam: Clear to Ausculation Bilateral, NORMAL BREATHING PATTERN. absent: Accessory Muscle Use, Chest Wall Tenderness, Rhonchi - Cardiovascular Exam Cardiovascular Exam: REGULAR RHYTHM, RRR. absent: Bradycardia - GI/Abdominal Exam GI & Abdominal Exam: Soft, Normal Bowel Sounds. absent: Distended, Tenderness - Neurological Exam Neurological Exam: Alert, Awake, Oriented x3 - Psychiatric Exam Psychiatric exam: Normal Affect, Normal Mood - Skin Skin Exam: Dry, Intact, Normal Color, Warm Assessment and Plan - Assessment and Plan (Free Text) Assessment: Leukocytosis Assessment & Plan: ID (Mangelsie) recommends to hold INH given that AFB - takes 6 weeks Started on IV Flagyl 500mg @ 100ml/hr due to increasing WBC WBC 01/26: 15.3 WBC 01/24: 19.4 WBC 01/23: 20.5--started Flagyl 500 mg PO Q8 WBC 01/22: 18.7 - repeated blood cultures, sputum cultures, urine cultures WBC 01/21: 14.7 WBC 01/20: 12.9 WBC on 01/15: 7.5, bands 23 WBC on 01/14: 8.7 WBC 9.6 on 01/13 CXR (01/06/17):hypoinflation, bronchovascular crowing, bibasilar atelectasis or infiltrates, probable trace bilateral pleural effusions as per Dr. Carias, patient put on isolation parameters CT/C/A/P (01/09/17): Segmental atelectasis with bronchiectasis bibasally. Scattered areas of thickening in intralobular septum in subpleural lung. DDX include interstitial pneumonia, chronic aspiration, sarcoid, connective tissue disease, cryptogenic organizing pneumoina, broncheoalveolar carcinoma. AFB 01/07: PRELIM - negative, 2nd AFB 01/07 - PRELIM - negative, AFB 01/03: PRELIM - negative AFB culture (01/06/17): No acid fast bacilli seen CRP >15 LDH>750 ESR (01/09/17) 101, (01/07/17) ESR 79 Legionella, Strep Pneumo (-), Mycoplasma pending procalcitonin<.05 dopplers of lower and upper extremities: negative except abnormal finding of right cephalic vein -aspirin 81mg daily HIV negative 01/11: blood and urine cultures no growth for 24 hours Diffuse Macular Rash - Resolved possibly secondary to antibiotics as per ID, Dr. Carias, antibiotics stopped since cultures are negative, will continue to monitor as patient believes the rash started before he was hospitalized started on Ketoconazole cream for possible fungal infection Respiratory infection Waiting on pulm reccs Consider multilobar PNA - Cont Zosyn 3.375 IV Q6 and add IV Flagyl 500mg @ 100ml /hr per pulm (Mike) quantiferon test result - indeterminate AFB (-) x 4 started B6 25 mg PO daily (01/05) F/u with patient's PMD regarding TB diagnosis: * As per conversation with Dr. Pete Gresham and Dr. Stoll (who was covering for PMD Dr. Bran Klein [phone]) on 01/02/17 and he confirmed that patient was being treated with Isoniazid 300 mg PO 1x/day by Dr. Klein for TB Prophylaxis Imaging: CT chest: No significant interval change in the lungs since the previous exam. Interval slight increase in the size of the pleural effusion. Otherwise no significant interval change 01/01 Chest X-ray: Progressive bibasilar consolidations. Progressive infiltrates in this patient with underlying bibasilar bronchiectasis here is inferred. Inferolateral pleural effusions with pleural thickening 01/19 CXR: bibasilar opacities, opacitiy in Right upper lobe, small b/l pleural effusion 01/21: Chest CT --> interstital pneumonitis Vs collagen vascular disease Vs Cryptogenic organizing pneumonia V sarcoid Duoneb Q6 [facility] started 01/23/17 Fever PNA 01/24: Tmax 103.0 01/24: Tmax 99.8 01/23: Tmax 99.8 01/22: Tmax 99.4 01/20: Tmax 99.8 Added hypothermic blanket 01/19: Tmax 100.2 01/17: Tmax 101.6 01/14: tmax 102.7 01/13: 23:20 fever of 102.8 01/12: Tmax 103 at 22:40 01/12: fever of 102 at 7:35 f/u speech and swallow- although patient appears to be tolerating PO intake at this time, coughing was noted during his meal and patient reports that coughing increases while eating. Suggest a modified barium swallow to r/o aspiration modified barium swallow(01/13): no penetration or aspiration observed aspiration precautions 01/09: Afebrile overnight ID consult (Dr. Carias), help appreciated Tmax: 100.6 (01/01/17) Blood culture/ gram stain (01/01): (+) for gram positive cocci/ Coagulase negative staphylococcus blood culture(01/11): no growth for 48 hours urine culture (01/11): no growth blood culture (01/15): no growth for 24 hours Status: Acute Bacteremia Repeated blood, sputum and urine cultures ID Consult (Dr. Carias on board), help appreciated. Dr. Carias stopped antibiotics on 01/14 01/19: blood cultures pending 01/15: Repeat urine culture negative blood culture (01/15): negative for 48 hours Blood culture repeat on 01/02 negative for 72 hours, Urine Culture 01/01 negative Blood culture/ gram stain : (+) for gram positive cocci/ Coagulase negative staphylococcus Lactate: 734 (01/13) Status: Acute Pancreatic Lesion 01/19: Dr. Lowe will do EUS Thursday to evaluate pancreatic tail mass, stop anticoag and NPO Thursday night CT C/A/P (01/08/17): 8mm low density lesion in tail of pancreas. Report from CT indicated a 3mm lesion in the pancreatic tail. No old study to compare. Recommend further evaluation with pancreas dedicated MRI w MRCP (see full report ) Dr. Jonas, GI consulted: help appreciated MRCP: 4mm T1 hypo intense focus at pancreatic tail consistent with finding on recent CT, cannot be further characterized 2.2 cm T2 hyperintense T1 hypo intense lesion in right kidney consistent with previously demonstrated cyst CA 19-9: 01/12-10.3, 01/13- 10.1, 01/14- 11.6 -IR for biopsy of pancreas * Dr. Jacobson consulted, help appreciated, --lesion to small to biopsy, will continue to follow CT Pancreas (01/19): redemonstrated pancreatic mass. GI recs = repeat imaging in 6mo Superficial Thrombophlebitis * Venous doppler (01/08/17): acute thrombosis of right cephalic vein and no evidence of vein thrombosis with left upper extremity w excellent venous flow. * Venous doppler (01/08/17): No DVT nor SVT bilateral lower extremities * Aspirin 81mg PO daily Constipation - RESOLVED Assessment & Plan: MRCP (01/14) showed severe constipation Miralax given which helped patient have a bowel movement Started on Colace 100 mg po TID Status: Acute Anemia Assessment & Plan: 01/21: 8.9/27.1 01/20: 9.3/28.8 01/19: 9.7/29 01/16: 10.7/32.4 01/12: 10.7/ 32.1 Stable H/H on admission: 11.1/34.6 Iron studies: * Iron 75 * TIBC : 207 * % Saturation: 34 * Ferritin: 454 Monitor H/H Status: Acute History of hypothyroidism Assessment & Plan: Continue home medication: * Synthroid 88mcg PO daily * TSH normal Status: Acute Vertigo Resolved Vestibular Disequilibrium Right Ear Possibly secondary to drug-induced (Minocycline HCl - discontinued) * Zofran 4mg IV Q6H prn --> for associated nausea and vomiting Neurology consult ( Dr. Lee)---> Help appreciated As per neurology: * Hydration * Meclizine PRN * Plavix- patient to stay on plavix for 6 months * Out of bed * No further work up needed 01/02: HIV antibody 1 and 2 screen ordered: Negative RPR: Negative Imaging: ECHO: mild pulmonary hypertension. normal left ventricle, normal EF. CT head: No acute findings Brain MRI: No acute intracranial hemorrhage. Minimal of prolonged T2 signal changes seen in the periventricular white matter which may in part be related to CSF interface artifact however the possibility of some minimal concomitant chronic sequela of small vessel disease not excluded. Mild generalized volume loss. No enhancing masses. No evidence of unusual meningeal enhancement. Carotid doppler : Duplex scan does not suggest hemodynamically significant stenosis of the right and left extracranial carotid arteries Chest X-ray: Progressive bibasilar consolidations. Progressive infiltrates in this patient with underlying bibasilar bronchiectasis here is inferred. Inferolateral pleural effusions with pleural thickening -renoted Diarrhea - RESOLVED Assessment & Plan: Testing for C.diff again given senior care antibiotic therapy C dif toxin, stool culture, ova and parasite: all negative Flagyl stopped Status: Resolved Lower Extremity Edema Gave Albumin 25% 12.5g IV to increase levels and reduce extravesation in order to control LE Edema Echo:mild pulmonary hypertension. normal left ventricle, normal EF. Lasix 20 mg once given 01/06 Ankle X-ray: No fracture or arthritis. Mild circumferential soft tissue swelling bilaterally. Pending b/l Doppler official report Elevated LFTs - RESOLVED 01/17: Patient's liver function test continue to rise; d/c motrin and benadryl 01/20: Abdominal US = R. hepatic steatosis Vs parenchymal infection/inflammation. No GS or biliary dilation Consulted ID (Zhegn) to see if we can restart INH given the LFT return to baseline Vtach Patient Had Rapid called on 01/26 for Vtach - was asx Consulted cards - [facility] taking him for a nuclear stress test on Thursday Started on Metoprolol 25 Q6H Prophylactic measure Assessment & Plan: SCDs Ambulating Pepcid 20mg PO BID Florastor 250mg PO BID Lovenox 40 mg stat dose given 01/23 Status: Acute F/U pulm reccs F/U ID reccs F/U Cardio reccs for Vtach <Ian Gresham - Last Filed: 01/27/17 20:58> Objective - Vital Signs/Intake and Output Vital Signs (last 24 hours): Temp Pulse Resp BP Pulse Ox 98.5 F 74 20 103/68 100 01/27/17 15:05 01/27/17 15:05 01/27/17 15:05 01/27/17 15:05 01/27/17 15:05 - Medications Medications: Current Medications Acetaminophen (Tylenol 325mg Tab) 650 mg PO Q6 PRN PRN Reason: Fever >100.4 F Last Admin: 01/27/17 09:41 Dose: 650 mg Aspirin (Aspirin Chewable) 81 mg PO DAILY [facility] Last Admin: 01/27/17 14:22 Dose: Not Given Calcium Carbonate (Tums) 500 mg PO BID [facility] Last Admin: 01/27/17 19:13 Dose: Not Given Docusate Sodium (Colace) 100 mg PO TID [facility] Last Admin: 01/27/17 19:08 Dose: 100 mg Enoxaparin Sodium (Lovenox) 60 mg SC Q12 [facility] Last Admin: 01/27/17 14:22 Dose: Not Given Famotidine (Pepcid) 20 mg PO BID [facility] Last Admin: 01/27/17 19:13 Dose: 20 mg Guaifenesin (Mucinex La) 600 mg PO BID [facility] Last Admin: 01/27/17 19:08 Dose: 600 mg Meropenem 1 gm/ Sodium (Chloride) 100 mls @ 100 mls/hr IVPB Q8 [facility] Last Admin: 01/27/17 19:06 Dose: 100 mls/hr Linezolid (Zyvox 600mg/300ml D5w) 600 mg in 300 mls @ 300 mls/hr IVPB Q12H [facility] Last Admin: 01/27/17 20:09 Dose: 300 mls/hr Sodium Chloride (Sodium Chloride 0.9%) 1,000 mls @ 100 mls/hr IV .Q10H [facility] Last Admin: 01/27/17 19:07 Dose: 100 mls/hr Ipratropium Brohard (Atrovent Hfa) 2 puff IH RQ6 PRN PRN Reason: Shortness of Breath Levothyroxine Sodium (Synthroid) 88 mcg PO DAILY@0630 [facility] Last Admin: 01/27/17 06:44 Dose: 88 mcg Metoprolol Tartrate (Lopressor) 25 mg PO Q6H [facility] Last Admin: 01/27/17 14:21 Dose: 25 mg Ondansetron HCl (Zofran Inj) 4 mg IVP Q6H PRN PRN Reason: Nausea/Vomiting Promethazine HCl/Codeine (Phenergan/Codeine Oral Syrup) 5 ml PO Q4 PRN PRN Reason: Cough Last Admin: 01/23/17 21:43 Dose: 5 ml Saccharomyces Boulardii (Florastor) 250 mg PO BID [facility] Last Admin: 01/27/17 19:08 Dose: 250 mg - Labs Labs: 01/27/17 07:10 01/27/17 07:10 PT 13.2 SECONDS (9.7-12.2) H 01/20/17 19:37 INR 1.2 01/20/17 19:37 APTT 32 SECONDS (21-34) 01/20/17 19:37 Attending/Attestation - Attestation I have personally seen and examined this patient.: Yes I have fully participated in the care of the patient.: Yes I have reviewed all pertinent clinical information, including history, physical exam and plan: Yes Notes (Text): 01/27/17 20:58 Patient was seen and examined on 01/26/17 Exam, Assessment and Plan were thoroughly discussed with Resident. Ian Gresham D.O.
[2017-01-26 08:03] LABS: CHLORIDE 100 mmol/L (98-107); SODIUM 131 mmol/L (132-148)
[2017-01-26 08:04] LABS: POTASSIUM 3.9 mmol/L (3.6-5.2)
[2017-01-26 08:06] LABS: ALB/GLOB RATIO 0.4 (1.0-2.1); ALKALINE PHOSPHATASE 120 U/L (38-126); ALT/SGPT 44 U/L (21-72); AST/SGOT 36 U/L (17-59); BILIRUBIN,TOTAL < 0.1 mg/dL (0.2-1.3); BLOOD UREA NITROGEN 18 mg/dL (9-20); CARBON DIOXIDE 23 mmol/L (22-30); GFR AFRICAN-AMERICAN > 60; GLUCOSE,RANDOM 87 mg/dL (75-110); TOTAL PROTEIN 7.3 g/dL (6.3-8.3)
[2017-01-26 08:16] LABS: BASO # 0.1 K/uL (0.0-0.2); BASO % 0.6 % (0.0-2.0); EOS # 0.4 K/uL (0.0-0.7); EOS % 2.8 % (0.0-4.0); HEMATOCRIT 27.8 % (35.0-51.0); LYMPH # 1.5 K/uL (1.0-4.3); LYMPH % 9.5 % (20.0-40.0); MEAN CELL VOLUME 82.2 fL (80.0-94.0); MEAN CORPUSCULAR HEMOGLOBIN 26.8 pg (27.0-31.0); MEAN CORPUSCULAR HGB CONC 32.6 g/dL (33.0-37.0); MEAN PLATELET VOLUME 8.2 fL (7.2-11.7); MONO # 0.4 K/uL (0.0-0.8); MONO % 2.3 % (0.0-10.0); RED CELL DISTRIBUTION WIDTH 19.9 % (11.5-14.5); WHITE BLOOD COUNT 15.3 K/uL (4.8-10.8)
[2017-01-26] MEDS: Saccharomyces Boulardi 250 mg Cap PO SCH ×2 (09:15→17:11)
[2017-01-26] MEDS: guaiFENesin 600 mg ER Tab PO SCH ×2 (09:15→17:12)
[2017-01-26] MEDS: Calcium Carbonate 500 mg Chewable Antacid Tab PO SCH ×2 (09:16→17:12)
[2017-01-26] MEDS: Enoxaparin 60 mg Syringe SC SCH ×2 (10:33→21:41)
--- NOTE | 2017-01-26 10:52 | CP.PCM.CON ---
<HARIRS,NICOLASA - Last Filed: 01/26/17 16:05> History of Present Illness - History of Present Illness History of Present Illness: Nicolasa Mattson, PGY1, Consult Note for Dr. Silva: HPI: 51M with PMH recently diagnosed TB, hypothyroidism, presented for vertigo, nausea and vomiting, found to have multilobar pneumonia. Overnight, pt developed 18 beats of V. tach, resolved on its own. Pt denies any sob, cp, dizziness, lightheadedness, n/v/d, abdominal pain, urinary symptoms. No previous episodes of abnormal rhythm. 12lead EKG shows Sinus tachycardia, elevated trop 0.2280, ck-mb negx1. Cardiology consulted for V. tach evaluation. Review of Systems - Constitutional Constitutional: absent: Excessive Sweating, Fatigue - EENT Eyes: absent: Blurred Vision, Change in Vision - Cardiovascular Cardiovascular: absent: Chest Pain at Rest, Diaphoresis, Dyspnea, Dyspnea on Exertion, Edema, Leg Edema, Lightheadedness, Palpitations - Respiratory Respiratory: absent: Cough, Dyspnea, Pain on Inspiration - Gastrointestinal Gastrointestinal: absent: Change in Bowel Habits, Constipation - Genitourinary Genitourinary: absent: Hematuria, Urinary Frequency, Urinary Urgency - Integumentary Integumentary: absent: Rash - Neurological Neurological: absent: Confusion, Dizziness, Numbness - Psychiatric Psychiatric: absent: Behavioral Changes - Endocrine Endocrine: absent: Excessive Sweating - Hematologic/Lymphatic Hematologic: absent: Easy Bleeding Past Patient History - Infectious Disease Hx of Infectious Diseases: None - Past Medical History & Family History Past Medical History?: Yes - Past Social History Smoking Status: Never Smoked - CARDIAC Hx Cardiac Disorders: No - PULMONARY Hx Pneumonia: Yes - NEUROLOGICAL Hx Neurological Disorder: No - HEENT Hx HEENT Problems: No - RENAL Hx Chronic Kidney Disease: No - ENDOCRINE/METABOLIC Hx Hypothyroidism: Yes - HEMATOLOGICAL/ONCOLOGICAL Hx Blood Disorders: No - INTEGUMENTARY Hx Dermatological Problems: No Hx Eczema: Yes - MUSCULOSKELETAL/RHEUMATOLOGICAL Hx Falls: No - GASTROINTESTINAL Hx Gastrointestinal Disorders: No - GENITOURINARY/GYNECOLOGICAL Hx Genitourinary Disorders: No - PSYCHIATRIC Hx Substance Use: No - SURGICAL HISTORY Hx Surgeries: No - ANESTHESIA Hx Anesthesia: No Meds Allergies/Adverse Reactions: Allergies Allergy/AdvReac Type Severity Reaction Status Date / Time levofloxacin Allergy RASH Verified 01/17/17 07:47 vancomycin AdvReac ITCHING Verified 02/16/17 09:06 - Medications Medications: Current Medications Acetaminophen (Tylenol 325mg Tab) 650 mg PO Q6 PRN PRN Reason: Fever >100.4 F Last Admin: 01/24/17 23:45 Dose: 650 mg Albuterol/Ipratropium (Duoneb 3 Mg/0.5 Mg (3 Ml) Ud) 3 ml INH RQ6 [facility] Last Admin: 01/26/17 07:53 Dose: 3 ml Aspirin (Aspirin Chewable) 81 mg PO DAILY [facility] Last Admin: 01/26/17 09:16 Dose: 81 mg Calcium Carbonate (Tums) 500 mg PO BID [facility] Last Admin: 01/26/17 09:16 Dose: 500 mg Docusate Sodium (Colace) 100 mg PO TID [facility] Last Admin: 01/26/17 09:15 Dose: 100 mg Enoxaparin Sodium (Lovenox) 60 mg SC Q12 [facility] Last Admin: 01/26/17 10:33 Dose: 60 mg Famotidine (Pepcid) 20 mg PO BID [facility] Last Admin: 01/26/17 09:18 Dose: 20 mg Guaifenesin (Mucinex La) 600 mg PO BID [facility] Last Admin: 01/26/17 09:15 Dose: 600 mg Levothyroxine Sodium (Synthroid) 88 mcg PO DAILY@0630 [facility] Last Admin: 01/26/17 05:38 Dose: 88 mcg Metoprolol Tartrate (Lopressor) 25 mg PO Q6H [facility] Last Admin: 01/26/17 09:14 Dose: 25 mg Ondansetron HCl (Zofran Inj) 4 mg IVP Q6H PRN PRN Reason: Nausea/Vomiting Promethazine HCl/Codeine (Phenergan/Codeine Oral Syrup) 5 ml PO Q4 PRN PRN Reason: Cough Last Admin: 01/23/17 21:43 Dose: 5 ml Saccharomyces Boulardii (Florastor) 250 mg PO BID [facility] Last Admin: 01/26/17 09:15 Dose: 250 mg Physical Exam - Constitutional Appears: No Acute Distress - Head Exam Head Exam: ATRAUMATIC, NORMOCEPHALIC - Eye Exam Eye Exam: Normal appearance, PERRL - ENT Exam ENT Exam: Mucous Membranes Moist - Respiratory Exam Respiratory Exam: Clear to Auscultation Bilateral - Cardiovascular Exam Cardiovascular Exam: Tachycardia, RRR. absent: Systolic Murmur - GI/Abdominal Exam GI & Abdominal Exam: Normal Bowel Sounds, Soft. absent: Distended - Extremities Exam Extremities exam: Negative for: calf tenderness, pedal edema - Neurological Exam Neurological exam: Alert, Oriented x3 - Psychiatric Exam Psychiatric exam: Normal Mood - Skin Skin Exam: Dry, Warm Results - Vital Signs Recent Vital Signs: Last Vital Signs Temp 98.4 F 01/26/17 07:39 Pulse 96 H 01/26/17 07:39 Resp 20 01/26/17 07:39 BP 103/61 01/26/17 09:14 Pulse Ox 97 01/26/17 07:39 - Labs Result Diagrams: 01/26/17 07:45 01/26/17 07:45 Labs: Laboratory Results - last 24 hr 01/26/17 01/26/17 01/26/17 04:36 04:36 04:36 WBC 15.9 H RBC 3.40 L Hgb 9.2 L Hct 27.6 L MCV 81.3 MCH 27.1 MCHC 33.4 RDW 19.8 H Plt Count 570 H MPV 7.4 Neut % (Auto) 86.3 H Lymph % (Auto) 7.9 L [place] % (Auto) 2.7 Eos % (Auto) 2.7 Baso % (Auto) 0.4 Neut # 13.7 H Lymph # 1.2 [place] # 0.4 Eos # 0.4 Baso # 0.1 Neutrophils % (Manual) 88 H Band Neutrophils % 4 H Lymphocytes % (Manual) 5 L Monocytes % (Manual) 3 Platelet Estimate Normal Sodium 132 Potassium 4.0 Chloride 98 Carbon Dioxide 25 Anion Gap 12 BUN 19 Creatinine 0.8 Est GFR ( Amer) > 60 Est GFR (Non-Af Amer) > 60 Random Glucose 94 Calcium 7.3 L Total Bilirubin 0.2 AST 37 ALT 41 Alkaline Phosphatase 117 Total Creatine Kinase 131 CK-MB (Mass) 3.20 Troponin I, Quant 0.2280 H* Total Protein 7.1 Albumin 2.4 L Globulin 4.8 H Albumin/Globulin Ratio 0.5 L Free T4 1.43 TSH 3rd Generation 9.90 H 01/26/17 01/26/17 07:45 07:45 WBC 15.3 H RBC 3.38 L Hgb 9.1 L Hct 27.8 L MCV 82.2 MCH 26.8 L MCHC 32.6 L RDW 19.9 H Plt Count 529 H MPV 8.2 Neut % (Auto) 84.8 H Lymph % (Auto) 9.5 L [place] % (Auto) 2.3 Eos % (Auto) 2.8 Baso % (Auto) 0.6 Neut # 13.0 H Lymph # 1.5 [place] # 0.4 Eos # 0.4 Baso # 0.1 Neutrophils % (Manual) Band Neutrophils % Lymphocytes % (Manual) Monocytes % (Manual) Platelet Estimate Sodium 131 L Potassium 3.9 Chloride 100 Carbon Dioxide 23 Anion Gap 12 BUN 18 Creatinine 0.6 L Est GFR ( Amer) > 60 Est GFR (Non-Af Amer) > 60 Random Glucose 87 Calcium 7.0 L Total Bilirubin < 0.1 L AST 36 ALT 44 Alkaline Phosphatase 120 Total Creatine Kinase CK-MB (Mass) Troponin I, Quant Total Protein 7.3 Albumin 2.2 L Globulin 5.1 H Albumin/Globulin Ratio 0.4 L Free T4 TSH 3rd Generation Assessment & Plan - Assessment and Plan (Free Text) Assessment: 51M with hx of TB, hypothyroidism, admitted for vertigo, found to have multilobar pneumonia. Cardiology consulted for asymptomatic v. tach episode this morning. Trop mildly elevated 0.2280, ck-mb negx1, EKG shows sinus tachycardia. Plan: - Since this AM, pt tachycardic HR 96-124, pt had an episode of 18 beats of V tach overnight 01/26. - EKG shows sinus tachycardia - Pt describes chronic sob, denies f/c/n/v, diaphoresis, dizziness, abdominal pain, cp. - D dimer elevated, 3929, consider CTA - trop 0.2280->0.1810. f/u full BENITEZ - CK-MB 3.2->4.12 - C/w ASA 81 mg Po daily. Will start Metoprolol tartrate 25mg PO q6h - Will go for stress test on Thursday (01/28) Discussed with Dr. Silva. Dakota Mattson, PGY1 - Date & Time Date: 01/26/17 Time: 16:22 <Shanthi Silva - Last Filed: 02/23/17 03:23> Meds - Medications Medications: Current Medications Acetaminophen (Tylenol 325mg Tab) 650 mg PO Q6 PRN PRN Reason: Fever >100.4 F Last Admin: 02/15/17 10:17 Dose: 650 mg Amiodarone HCl (Cordarone) 200 mg PO BID [facility] Last Admin: 02/22/17 22:19 Dose: 200 mg Enoxaparin Sodium (Lovenox) 40 mg SC DAILY [facility] Last Admin: 02/22/17 09:59 Dose: 40 mg Guaifenesin (Mucinex La) 600 mg PO BID [facility] Last Admin: 02/22/17 18:16 Dose: 600 mg Aztreonam 2 gm/ Sodium (Chloride) 100 mls @ 200 mls/hr IVPB Q8H [facility] Last Admin: 02/22/17 21:22 Dose: 200 mls/hr Ibuprofen (Motrin Tab) 600 mg PO TID PRN PRN Reason: fever Last Admin: 02/22/17 00:35 Dose: 600 mg Ipratropium [place] (Atrovent Hfa) 2 puff IH RQ6 PRN PRN Reason: Shortness of Breath Lactic Acid (Lac-Hydrin 12% Lotion (225 G)) 225 gm EXT Q1H PRN PRN Reason: Dry skin Last Admin: 02/04/17 18:34 Dose: 1 applic Levothyroxine Sodium (Synthroid) 112 mcg PO DAILY@0630 [facility] Last Admin: 02/22/17 05:31 Dose: 112 mcg Ondansetron HCl (Zofran Inj) 4 mg IVP Q6H PRN PRN Reason: nausea Last Admin: 02/14/17 18:46 Dose: 4 mg Promethazine HCl/Codeine (Phenergan/Codeine Oral Syrup) 5 ml PO Q4 PRN PRN Reason: Cough Last Admin: 02/14/17 18:15 Dose: 5 ml Tramadol HCl (Ultram) 25 mg PO BID PRN PRN Reason: Pain, moderate (4-7) Last Admin: 02/19/17 18:11 Dose: 25 mg Results - Vital Signs Recent Vital Signs: Last Vital Signs Temp 99.0 F 02/22/17 23:50 Pulse 75 02/22/17 23:50 Resp 20 02/22/17 23:50 BP 110/67 02/22/17 23:50 Pulse Ox 97 02/22/17 23:50 - Labs Result Diagrams: 02/22/17 08:21 02/22/17 08:21 Labs: Laboratory Results - last 24 hr 02/22/17 02/22/17 08:21 08:21 WBC 28.2 H RBC 3.38 L Hgb 9.2 L Hct 28.3 L MCV 83.7 MCH 27.3 MCHC 32.6 L RDW 19.5 H Plt Count 564 H MPV 8.0 Neut % (Auto) 89.5 H Lymph % (Auto) 6.9 L [place] % (Auto) 1.4 Eos % (Auto) 2.1 Baso % (Auto) 0.1 Neut # 25.3 H Lymph # 1.9 [place] # 0.4 Eos # 0.6 Baso # 0.0 Neutrophils % (Manual) 87 H Band Neutrophils % 1 Lymphocytes % (Manual) 6 L Monocytes % (Manual) 3 Eosinophils % (Manual) 3 Platelet Estimate Increased H Plt Clumps, EDTA Present Large Platelets Present Polychromasia Slight Hypochromasia (manual) Slight Basophilic Stippling Slight Anisocytosis (manual) Moderate Sodium 131 L Potassium 3.9 Chloride 99 Carbon Dioxide 26 Anion Gap 10 BUN 17 Creatinine 0.4 L Est GFR ( Amer) > 60 Est GFR (Non-Af Amer) > 60 Random Glucose 97 Calcium 8.0 L Phosphorus 3.7 Magnesium 1.6 Total Bilirubin 0.2 AST 35 ALT 45 Alkaline Phosphatase 123 Total Protein 7.1 Albumin 2.4 L Globulin 4.7 H Albumin/Globulin Ratio 0.5 L Attending/Attestation - Attestation I have personally seen and examined this patient.: Yes I have fully participated in the care of the patient.: Yes I have reviewed all pertinent clinical information: Yes Notes (Text): 02/23/17 03:23 NSVT start metoproplol
[2017-01-26] MEDS ORDERED: Iodixanol 320 MG/ML 100 ML BOTTLE IV ONE (15:06)
[2017-01-26] MEDS ORDERED: Ipratropium 17 mcg/puff-200 puff/12.5 gm HFA Inh IH PRN (16:26)
--- NOTE | 2017-01-26 17:25 | CT ---
CTA chest PE protocol Indication: v tach, dyspnea Technique: Contiguous axial images were obtained through the chest with intravenous contrast enhancement. Sagittal and coronal reconstructions were generated and reviewed. This CT exam was performed using 1 or more of the falling dose reduction techniques: Automated exposure control, adjustment of the MAA and/or kV according to patient size, and/or use of iterative reconstruction technique. IV Contrast: 100 mL Visipaque Radiation dose (DLP): 363.36 MGy-cm. Comparison: CT chest without contrast performed 01/20/27 Findings: Visualized portions of the inferior thyroid gland appear unremarkable. The mediastinal and hilar vascular structures appear within normal limits. Heart size appears top. Scattered coronary artery calcifications. No large central or segmental pulmonary embolus evident. Bilateral airspace opacities with lower lobe predominance and associated bronchiectasis similar to prior study. Small bulla are present. Scattered subpleural consolidations. Trace bilateral pleural effusions. Pleural fluid also tracks along the right fissure. No pneumothorax. Limited visualized portions of the upper abdomen appear grossly unremarkable. Degenerative changes of the spine. Impression: No large central or segmental pulmonary embolus identified. Bilateral airspace opacities with lower lobe predominance and associated bronchiectasis similar to prior study. Small bulla are present trace bilateral pleural effusions. Scattered subpleural consolidations. Additional findings as above.
--- NOTE | 2017-01-26 18:52 | CP.PCM.CON ---
History of Present Illness - History of Present Illness History of Present Illness: Patient is being followed by Dr. Silva I will sign off Please reconsult if needed D/W Dr. Silva Thank you Past Patient History - Infectious Disease Hx of Infectious Diseases: None - Past Medical History & Family History Past Medical History?: Yes - Past Social History Smoking Status: Never Smoked - CARDIAC Hx Cardiac Disorders: No - PULMONARY Hx Pneumonia: Yes - NEUROLOGICAL Hx Neurological Disorder: No - HEENT Hx HEENT Problems: No - RENAL Hx Chronic Kidney Disease: No - ENDOCRINE/METABOLIC Hx Hypothyroidism: Yes - HEMATOLOGICAL/ONCOLOGICAL Hx Blood Disorders: No - INTEGUMENTARY Hx Dermatological Problems: No Hx Eczema: Yes - MUSCULOSKELETAL/RHEUMATOLOGICAL Hx Falls: No - GASTROINTESTINAL Hx Gastrointestinal Disorders: No - GENITOURINARY/GYNECOLOGICAL Hx Genitourinary Disorders: No - PSYCHIATRIC Hx Substance Use: No - SURGICAL HISTORY Hx Surgeries: No - ANESTHESIA Hx Anesthesia: No Meds Allergies/Adverse Reactions: Allergies Allergy/AdvReac Type Severity Reaction Status Date / Time levofloxacin Allergy RASH Verified 01/17/17 07:47 - Medications Medications: Current Medications Acetaminophen (Tylenol 325mg Tab) 650 mg PO Q6 PRN PRN Reason: Fever >100.4 F Last Admin: 01/24/17 23:45 Dose: 650 mg Aspirin (Aspirin Chewable) 81 mg PO DAILY [facility] Last Admin: 01/26/17 09:16 Dose: 81 mg Calcium Carbonate (Tums) 500 mg PO BID [facility] Last Admin: 01/26/17 17:12 Dose: 500 mg Docusate Sodium (Colace) 100 mg PO TID [facility] Last Admin: 01/26/17 17:11 Dose: 100 mg Enoxaparin Sodium (Lovenox) 60 mg SC Q12 [facility] Last Admin: 01/26/17 10:33 Dose: 60 mg Famotidine (Pepcid) 20 mg PO BID [facility] Last Admin: 01/26/17 17:11 Dose: 20 mg Guaifenesin (Mucinex La) 600 mg PO BID [facility] Last Admin: 01/26/17 17:12 Dose: 600 mg Ipratropium [place] (Atrovent Hfa) 2 puff IH RQ6 PRN PRN Reason: Shortness of Breath Levothyroxine Sodium (Synthroid) 88 mcg PO DAILY@0630 [facility] Last Admin: 01/26/17 05:38 Dose: 88 mcg Metoprolol Tartrate (Lopressor) 25 mg PO Q6H [facility] Last Admin: 01/26/17 16:00 Dose: 25 mg Ondansetron HCl (Zofran Inj) 4 mg IVP Q6H PRN PRN Reason: Nausea/Vomiting Promethazine HCl/Codeine (Phenergan/Codeine Oral Syrup) 5 ml PO Q4 PRN PRN Reason: Cough Last Admin: 01/23/17 21:43 Dose: 5 ml Saccharomyces Boulardii (Florastor) 250 mg PO BID [facility] Last Admin: 01/26/17 17:11 Dose: 250 mg Results - Vital Signs Recent Vital Signs: Last Vital Signs Temp 98.7 F 01/26/17 15:05 Pulse 90 01/26/17 15:05 Resp 20 01/26/17 15:05 BP 129/73 01/26/17 16:00 Pulse Ox 100 01/26/17 15:05 - Labs Result Diagrams: 01/26/17 07:45 01/26/17 07:45 Labs: Laboratory Results - last 24 hr 01/26/17 01/26/17 01/26/17 04:36 04:36 04:36 WBC 15.9 H RBC 3.40 L Hgb 9.2 L Hct 27.6 L MCV 81.3 MCH 27.1 MCHC 33.4 RDW 19.8 H Plt Count 570 H MPV 7.4 Neut % (Auto) 86.3 H Lymph % (Auto) 7.9 L [place] % (Auto) 2.7 Eos % (Auto) 2.7 Baso % (Auto) 0.4 Neut # 13.7 H Lymph # 1.2 [place] # 0.4 Eos # 0.4 Baso # 0.1 Neutrophils % (Manual) 88 H Band Neutrophils % 4 H Lymphocytes % (Manual) 5 L Monocytes % (Manual) 3 Platelet Estimate Normal D-Dimer, Quantitative Sodium 132 Potassium 4.0 Chloride 98 Carbon Dioxide 25 Anion Gap 12 BUN 19 Creatinine 0.8 Est GFR ( Amer) > 60 Est GFR (Non-Af Amer) > 60 Random Glucose 94 Calcium 7.3 L Total Bilirubin 0.2 AST 37 ALT 41 Alkaline Phosphatase 117 Total Creatine Kinase 131 CK-MB (Mass) 3.20 Troponin I, Quant 0.2280 H* Total Protein 7.1 Albumin 2.4 L Globulin 4.8 H Albumin/Globulin Ratio 0.5 L Free T4 1.43 TSH 3rd Generation 9.90 H 01/26/17 01/26/17 01/26/17 07:45 07:45 11:15 WBC 15.3 H RBC 3.38 L Hgb 9.1 L Hct 27.8 L MCV 82.2 MCH 26.8 L MCHC 32.6 L RDW 19.9 H Plt Count 529 H MPV 8.2 Neut % (Auto) 84.8 H Lymph % (Auto) 9.5 L [place] % (Auto) 2.3 Eos % (Auto) 2.8 Baso % (Auto) 0.6 Neut # 13.0 H Lymph # 1.5 [place] # 0.4 Eos # 0.4 Baso # 0.1 Neutrophils % (Manual) Band Neutrophils % Lymphocytes % (Manual) Monocytes % (Manual) Platelet Estimate D-Dimer, Quantitative 3929 H Sodium 131 L Potassium 3.9 Chloride 100 Carbon Dioxide 23 Anion Gap 12 BUN 18 Creatinine 0.6 L Est GFR ( Amer) > 60 Est GFR (Non-Af Amer) > 60 Random Glucose 87 Calcium 7.0 L Total Bilirubin < 0.1 L AST 36 ALT 44 Alkaline Phosphatase 120 Total Creatine Kinase CK-MB (Mass) Troponin I, Quant Total Protein 7.3 Albumin 2.2 L Globulin 5.1 H Albumin/Globulin Ratio 0.4 L Free T4 TSH 3rd Generation 01/26/17 01/26/17 12:25 17:05 WBC RBC Hgb Hct MCV MCH MCHC RDW Plt Count MPV Neut % (Auto) Lymph % (Auto) [place] % (Auto) Eos % (Auto) Baso % (Auto) Neut # Lymph # [place] # Eos # Baso # Neutrophils % (Manual) Band Neutrophils % Lymphocytes % (Manual) Monocytes % (Manual) Platelet Estimate D-Dimer, Quantitative Sodium Potassium Chloride Carbon Dioxide Anion Gap BUN Creatinine Est GFR ( Amer) Est GFR (Non-Af Amer) Random Glucose Calcium Total Bilirubin AST ALT Alkaline Phosphatase Total Creatine Kinase 142 197 H CK-MB (Mass) 4.12 H 3.89 H Troponin I, Quant 0.1810 H* 0.2200 H* Total Protein Albumin Globulin Albumin/Globulin Ratio Free T4 TSH 3rd Generation
[2017-01-27] MEDS: Levothyroxine 88 MCG TAB PO SCH (06:44)
[2017-01-27 07:37] LABS: BASO # 0.1 K/uL (0.0-0.2); BASO % 0.5 % (0.0-2.0); EOS # 0.4 K/uL (0.0-0.7); EOS % 2.5 % (0.0-4.0); HEMATOCRIT 27.7 % (35.0-51.0); LYMPH # 1.2 K/uL (1.0-4.3); LYMPH % 6.9 % (20.0-40.0); MEAN CELL VOLUME 81.9 fL (80.0-94.0); MEAN CORPUSCULAR HEMOGLOBIN 27.6 pg (27.0-31.0); MEAN CORPUSCULAR HGB CONC 33.8 g/dL (33.0-37.0); MEAN PLATELET VOLUME 7.9 fL (7.2-11.7); MONO # 0.4 K/uL (0.0-0.8); MONO % 2.3 % (0.0-10.0); PLATELET COUNT 526 K/uL (130-400); RED CELL DISTRIBUTION WIDTH 20.2 % (11.5-14.5); WHITE BLOOD COUNT 17.2 K/uL (4.8-10.8)
--- NOTE | 2017-01-27 08:09 | CP.PCM.PCO ---
Physician Communication Note - Physician Communication Note Physician Communication Note: Please see above
[2017-01-27 08:19] LABS: CHLORIDE 99 mmol/L (98-107); SODIUM 131 mmol/L (132-148)
[2017-01-27 08:21] LABS: BILIRUBIN,TOTAL 0.4 mg/dL (0.2-1.3); GFR AFRICAN-AMERICAN > 60
[2017-01-27 08:22] LABS: ALB/GLOB RATIO 0.5 (1.0-2.1); ALKALINE PHOSPHATASE 130 U/L (38-126); ALT/SGPT 42 U/L (21-72); AST/SGOT 49 U/L (17-59); BLOOD UREA NITROGEN 12 mg/dL (9-20); CALCIUM 7.2 mg/dl (8.6-10.4); CARBON DIOXIDE 24 mmol/L (22-30); GLUCOSE,RANDOM 85 mg/dL (75-110); TOTAL PROTEIN 7.6 g/dL (6.3-8.3)
[2017-01-27 08:59] LABS: BASOPHIL 2 % (0-2); EOSINOPHIL 1 % (0-4); NEUTROPHIL 86 % (50-75); TOTAL CELLS COUNTED 100
[2017-01-27] MEDS: Saccharomyces Boulardi 250 mg Cap PO SCH ×2 (09:41→19:08)
[2017-01-27] MEDS: guaiFENesin 600 mg ER Tab PO SCH ×2 (09:41→19:08)
--- NOTE | 2017-01-27 10:46 | CP.PCM.PN ---
<NICOLASA IGLESIAS - Last Filed: 01/27/17 15:44> Subjective - Date & Time of Evaluation Date of Evaluation: 01/27/17 Time of Evaluation: 10:43 - Subjective Subjective: Nicolasa Iglesias, PGY1, Progress Note for Dr. Silva: Pt seen and examined at bedside. Pt febrile overnight, T 101.4. Pt c/o palpitations, fever, mild diaphoresis. Denies cp, sob, chills, abdominal pain. Pt scheduled for cardiac cath with Dr. Pryor this afternoon. Objective - Vital Signs/Intake and Output Vital Signs (last 24 hours): Temp Pulse Resp BP Pulse Ox 101.1 F H 106 H 20 127/71 97 01/27/17 09:41 01/27/17 08:39 01/27/17 07:00 01/27/17 09:42 01/27/17 07:00 Intake and Output: 01/27/17 01/27/17 06:59 18:59 Intake Total 420 Balance 420 - Medications Medications: Current Medications Acetaminophen (Tylenol 325mg Tab) 650 mg PO Q6 PRN PRN Reason: Fever >100.4 F Last Admin: 01/27/17 09:41 Dose: 650 mg Aspirin (Aspirin Chewable) 81 mg PO DAILY [facility] Last Admin: 01/26/17 09:16 Dose: 81 mg Calcium Carbonate (Tums) 500 mg PO BID [facility] Last Admin: 01/26/17 17:12 Dose: 500 mg Docusate Sodium (Colace) 100 mg PO TID [facility] Last Admin: 01/27/17 09:41 Dose: 100 mg Enoxaparin Sodium (Lovenox) 60 mg SC Q12 [facility] Last Admin: 01/26/17 21:41 Dose: 60 mg Famotidine (Pepcid) 20 mg PO BID [facility] Last Admin: 01/27/17 09:41 Dose: 20 mg Guaifenesin (Mucinex La) 600 mg PO BID [facility] Last Admin: 01/27/17 09:41 Dose: 600 mg Ipratropium [place] (Atrovent Hfa) 2 puff IH RQ6 PRN PRN Reason: Shortness of Breath Levothyroxine Sodium (Synthroid) 88 mcg PO DAILY@0630 [facility] Last Admin: 01/27/17 06:44 Dose: 88 mcg Metoprolol Tartrate (Lopressor) 25 mg PO Q6H [facility] Last Admin: 01/27/17 09:42 Dose: 25 mg Ondansetron HCl (Zofran Inj) 4 mg IVP Q6H PRN PRN Reason: Nausea/Vomiting Promethazine HCl/Codeine (Phenergan/Codeine Oral Syrup) 5 ml PO Q4 PRN PRN Reason: Cough Last Admin: 01/23/17 21:43 Dose: 5 ml Saccharomyces Boulardii (Florastor) 250 mg PO BID [facility] Last Admin: 01/27/17 09:41 Dose: 250 mg - Labs Labs: 01/27/17 07:10 01/27/17 07:10 PT 13.2 SECONDS (9.7-12.2) H 01/20/17 19:37 INR 1.2 01/20/17 19:37 APTT 32 SECONDS (21-34) 01/20/17 19:37 - Constitutional Appears: No Acute Distress - Head Exam Head Exam: ATRAUMATIC, NORMOCEPHALIC - Eye Exam Eye Exam: PERRL - ENT Exam ENT Exam: Mucous Membranes Moist - Respiratory Exam Respiratory Exam: Rhonchi Additional comments: rhonchi b/l lower bases. Otherwise, decreased breath sounds. - Cardiovascular Exam Cardiovascular Exam: Tachycardia, REGULAR RHYTHM, +S1, +S2. absent: Murmur - GI/Abdominal Exam GI & Abdominal Exam: Soft, Normal Bowel Sounds. absent: Tenderness - Extremities Exam Extremities Exam: absent: Calf Tenderness, Pedal Edema - Neurological Exam Neurological Exam: Alert, Awake, Oriented x3 - Psychiatric Exam Psychiatric exam: Normal Affect - Skin Skin Exam: Dry, Warm Assessment and Plan - Assessment and Plan (Free Text) Assessment: 51M with hx of TB, hypothyroidism, admitted for vertigo, found to have multilobar pneumonia. Cardiology consulted for asymptomatic v. tach episode. Trop elevated x4, + d dimer, EKG shows sinus tachycardia, CTA chest neg for PE. Pt scheduled for cardiac cath with Dr. Pryor this afternoon. Plan: On 01/26, pt had an episode of 18 beats of V tach. - EKG shows sinus tachycardia - Pt describes chronic sob, denies f/c/n/v, diaphoresis, dizziness, abdominal pain, cp. - D dimer elevated, 3929, CTA neg for PE. B/l airspace opacities with LL predominance and associated bronchiectasis. Small bulla present. Trace b/l pleural effusions. - trop 0.2280->0.1810->0.2200->0.2750. - CK-MB 3.2->4.12->3.89 - C/w ASA 81 mg Po daily and Metoprolol tartrate 25mg PO q6h - Pt febrile overnight, with c/o palpitations. HR 90-111. Cont to monitor. - Scheduled for cardiac cath with Dr. Pryor this afternoon. f/u results. Discussed with Dr. Silva. Dakota Iglesias, PGY1 <Shanthi Silva A - Last Filed: 02/23/17 03:24> Objective - Vital Signs/Intake and Output Vital Signs (last 24 hours): Temp Pulse Resp BP Pulse Ox 99.0 F 75 20 110/67 97 02/22/17 23:50 02/22/17 23:50 02/22/17 23:50 02/22/17 23:50 02/22/17 23:50 Intake and Output: 02/22/17 02/23/17 18:59 06:59 Intake Total 200 580 Balance 200 580 - Medications Medications: Current Medications Acetaminophen (Tylenol 325mg Tab) 650 mg PO Q6 PRN PRN Reason: Fever >100.4 F Last Admin: 02/15/17 10:17 Dose: 650 mg Amiodarone HCl (Cordarone) 200 mg PO BID [facility] Last Admin: 02/22/17 22:19 Dose: 200 mg Enoxaparin Sodium (Lovenox) 40 mg SC DAILY [facility] Last Admin: 02/22/17 09:59 Dose: 40 mg Guaifenesin (Mucinex La) 600 mg PO BID [facility] Last Admin: 02/22/17 18:16 Dose: 600 mg Aztreonam 2 gm/ Sodium (Chloride) 100 mls @ 200 mls/hr IVPB Q8H [facility] Last Admin: 02/22/17 21:22 Dose: 200 mls/hr Ibuprofen (Motrin Tab) 600 mg PO TID PRN PRN Reason: fever Last Admin: 02/22/17 00:35 Dose: 600 mg Ipratropium [place] (Atrovent Hfa) 2 puff IH RQ6 PRN PRN Reason: Shortness of Breath Lactic Acid (Lac-Hydrin 12% Lotion (225 G)) 225 gm EXT Q1H PRN PRN Reason: Dry skin Last Admin: 02/04/17 18:34 Dose: 1 applic Levothyroxine Sodium (Synthroid) 112 mcg PO DAILY@0630 [facility] Last Admin: 02/22/17 05:31 Dose: 112 mcg Ondansetron HCl (Zofran Inj) 4 mg IVP Q6H PRN PRN Reason: nausea Last Admin: 02/14/17 18:46 Dose: 4 mg Promethazine HCl/Codeine (Phenergan/Codeine Oral Syrup) 5 ml PO Q4 PRN PRN Reason: Cough Last Admin: 02/14/17 18:15 Dose: 5 ml Tramadol HCl (Ultram) 25 mg PO BID PRN PRN Reason: Pain, moderate (4-7) Last Admin: 02/19/17 18:11 Dose: 25 mg - Labs Labs: 02/22/17 08:21 02/22/17 08:21 PT 13.2 SECONDS (9.7-12.2) H 01/20/17 19:37 INR 1.2 01/20/17 19:37 APTT 32 SECONDS (21-34) 01/20/17 19:37 Attending/Attestation - Attestation I have personally seen and examined this patient.: Yes I have fully participated in the care of the patient.: Yes I have reviewed all pertinent clinical information, including history, physical exam and plan: Yes Notes (Text): 02/23/17 03:24 cardiac catheterization this afternoon VT eval
[2017-01-27] MEDS: Calcium Carbonate 500 mg Chewable Antacid Tab PO SCH ×2 (14:22→19:13)
[2017-01-27] MEDS: Enoxaparin 60 mg Syringe SC SCH (14:22)
--- NOTE | 2017-01-27 16:51 | CP.PCM.PN ---
<Juan Francisco Gonzales - Last Filed: 01/27/17 17:53> Subjective - Date & Time of Evaluation Date of Evaluation: 01/27/17 Time of Evaluation: 16:49 - Subjective Subjective: PGY-[address] Gresham HPI: Patient seen and examined at bedside. Still complaining of SOB. No other complaints at this time. Passing gas and having regular BMs. States the swelling in his ankles is improving. [place] he had a subjective fever overnight. Denies CP, N/V/D. Objective - Vital Signs/Intake and Output Vital Signs (last 24 hours): Temp Pulse Resp BP Pulse Ox 101.1 F H 106 H 20 126/72 97 01/27/17 09:41 01/27/17 08:39 01/27/17 07:00 01/27/17 14:21 01/27/17 07:00 Intake and Output: 01/27/17 01/27/17 06:59 18:59 Intake Total 420 Balance 420 - Medications Medications: Current Medications Acetaminophen (Tylenol 325mg Tab) 650 mg PO Q6 PRN PRN Reason: Fever >100.4 F Last Admin: 01/27/17 09:41 Dose: 650 mg Aspirin (Aspirin Chewable) 81 mg PO DAILY [facility] Last Admin: 01/27/17 14:22 Dose: Not Given Calcium Carbonate (Tums) 500 mg PO BID [facility] Last Admin: 01/27/17 14:22 Dose: Not Given Docusate Sodium (Colace) 100 mg PO TID [facility] Last Admin: 01/27/17 14:21 Dose: 100 mg Enoxaparin Sodium (Lovenox) 60 mg SC Q12 [facility] Last Admin: 01/27/17 14:22 Dose: Not Given Famotidine (Pepcid) 20 mg PO BID [facility] Last Admin: 01/27/17 09:41 Dose: 20 mg Guaifenesin (Mucinex La) 600 mg PO BID [facility] Last Admin: 01/27/17 09:41 Dose: 600 mg Meropenem 1 gm/ Sodium (Chloride) 100 mls @ 100 mls/hr IVPB Q8 [facility] Linezolid (Zyvox 600mg/300ml D5w) 600 mg in 300 mls @ 300 mls/hr IVPB Q12H [facility] Ipratropium [place] (Atrovent Hfa) 2 puff IH RQ6 PRN PRN Reason: Shortness of Breath Levothyroxine Sodium (Synthroid) 88 mcg PO DAILY@0630 [facility] Last Admin: 01/27/17 06:44 Dose: 88 mcg Metoprolol Tartrate (Lopressor) 25 mg PO Q6H [facility] Last Admin: 01/27/17 14:21 Dose: 25 mg Ondansetron HCl (Zofran Inj) 4 mg IVP Q6H PRN PRN Reason: Nausea/Vomiting Promethazine HCl/Codeine (Phenergan/Codeine Oral Syrup) 5 ml PO Q4 PRN PRN Reason: Cough Last Admin: 01/23/17 21:43 Dose: 5 ml Saccharomyces Boulardii (Florastor) 250 mg PO BID [facility] Last Admin: 01/27/17 09:41 Dose: 250 mg - Labs Labs: 01/27/17 07:10 01/27/17 07:10 PT 13.2 SECONDS (9.7-12.2) H 01/20/17 19:37 INR 1.2 01/20/17 19:37 APTT 32 SECONDS (21-34) 01/20/17 19:37 - Constitutional Appears: Well, Non-toxic, No Acute Distress - Head Exam Head Exam: ATRAUMATIC, NORMAL INSPECTION, NORMOCEPHALIC - Eye Exam Eye Exam: EOMI, Normal appearance. absent: Conjunctival injection, Periorbital swelling, Periorbital tenderness - ENT Exam ENT Exam: Mucous Membranes Moist - Respiratory Exam Respiratory Exam: Decreased Breath Sounds (LLL). absent: Rhonchi, Wheezes - Cardiovascular Exam Cardiovascular Exam: REGULAR RHYTHM, RRR. absent: Gallop, JVD, Rubs, Murmur - GI/Abdominal Exam GI & Abdominal Exam: Soft, Normal Bowel Sounds. absent: Distended, Firm, Tenderness - Extremities Exam Extremities Exam: Joint Swelling (nonpitting edema of R.ankle) - Neurological Exam Neurological Exam: Alert, Awake, Oriented x3 - Psychiatric Exam Psychiatric exam: Normal Affect, Normal Mood - Skin Skin Exam: Dry, Intact, Normal Color, Warm Assessment and Plan - Assessment and Plan (Free Text) Assessment: Diffuse Macular Rash - Resolved Possibly secondary to antibiotics Continue to monitor Respiratory infection ID (Mangia) recommends to hold INH given that AFB is negative and quantiferon indeterminate * Consider Aspergillus/Histo ID (Jv) reccs: Zyvox 600mg IV Q12, Meropenem 1g IV Q8 Pulm (Mike): Getting bronch tomorrow AM Imaging: * Barium swallow: No aspiration * 01/19 CXR: bibasilar opacities, opacitiy in Right upper lobe, small b/l pleural effusion * 01/21: Chest CT: interstital pneumonitis Vs collagen vascular disease Vs Cryptogenic organizing pneumonia V sarcoid * 01/26: Chest CT: B/l LL opacities Fever PNA 01/27: Tmax 101.4 Patient refuses hypothermic blanket Echo ordered to R/O Endocarditis Status: Acute Bacteremia - Resolved All cultures negative Status: Acute Pancreatic Lesion CT Pancreas (01/19): redemonstrated pancreatic mass. GI recs = repeat imaging in 6mo Constipation - RESOLVED Miralax and Colace 100 mg po TID Status: Acute Anemia Iron studies: * Iron 75 * TIBC : 207 * % Saturation: 34 * Ferritin: 454 Monitor H/H Status: Acute History of hypothyroidism Continue home medication: * Synthroid 88mcg PO daily * TSH normal Status: Acute Vertigo - Resolved Possibly secondary to drug-induced (Minocycline HCl - discontinued) 01/02: HIV antibody 1 and 2 screen ordered: Negative CT head: No acute findings Brain MRI: No infarct, Unremarkable Carotid doppler: No significant stenosis Diarrhea - RESOLVED Assessment & Plan: C. diff negative; O/P negative Lower Extremity Edema Ankle X-ray: No fracture or arthritis. Mild circumferential soft tissue swelling bilaterally Has decreased substantially Elevated LFTs - RESOLVED 01/20: Abdominal US = hepatic steatosis Vs parenchymal infection/inflammation. No GS or biliary dilation Vtach Patient Had Rapid called on 01/26 for Vtach - was asx Cath on 01/27 - Normal coronaries, normal EF by echo Started on Metoprolol 25 Q6H Prophylactic measure Assessment & Plan: SCDs Ambulating Pepcid 20mg PO BID Florastor 250mg PO BID Restart Lovenox on 01/28 Status: Acute <Ian Gresham - Last Filed: 01/27/17 20:57> Objective - Vital Signs/Intake and Output Vital Signs (last 24 hours): Temp Pulse Resp BP Pulse Ox 98.5 F 74 20 103/68 100 01/27/17 15:05 01/27/17 15:05 01/27/17 15:05 01/27/17 15:05 01/27/17 15:05 - Medications Medications: Current Medications Acetaminophen (Tylenol 325mg Tab) 650 mg PO Q6 PRN PRN Reason: Fever >100.4 F Last Admin: 01/27/17 09:41 Dose: 650 mg Aspirin (Aspirin Chewable) 81 mg PO DAILY [facility] Last Admin: 01/27/17 14:22 Dose: Not Given Calcium Carbonate (Tums) 500 mg PO BID [facility] Last Admin: 01/27/17 19:13 Dose: Not Given Docusate Sodium (Colace) 100 mg PO TID [facility] Last Admin: 01/27/17 19:08 Dose: 100 mg Enoxaparin Sodium (Lovenox) 60 mg SC Q12 [facility] Last Admin: 01/27/17 14:22 Dose: Not Given Famotidine (Pepcid) 20 mg PO BID [facility] Last Admin: 01/27/17 19:13 Dose: 20 mg Guaifenesin (Mucinex La) 600 mg PO BID [facility] Last Admin: 01/27/17 19:08 Dose: 600 mg Meropenem 1 gm/ Sodium (Chloride) 100 mls @ 100 mls/hr IVPB Q8 [facility] Last Admin: 01/27/17 19:06 Dose: 100 mls/hr Linezolid (Zyvox 600mg/300ml D5w) 600 mg in 300 mls @ 300 mls/hr IVPB Q12H [facility] Last Admin: 01/27/17 20:09 Dose: 300 mls/hr Sodium Chloride (Sodium Chloride 0.9%) 1,000 mls @ 100 mls/hr IV .Q10H [facility] Last Admin: 01/27/17 19:07 Dose: 100 mls/hr Ipratropium [place] (Atrovent Hfa) 2 puff IH RQ6 PRN PRN Reason: Shortness of Breath Levothyroxine Sodium (Synthroid) 88 mcg PO DAILY@0630 [facility] Last Admin: 01/27/17 06:44 Dose: 88 mcg Metoprolol Tartrate (Lopressor) 25 mg PO Q6H [facility] Last Admin: 01/27/17 14:21 Dose: 25 mg Ondansetron HCl (Zofran Inj) 4 mg IVP Q6H PRN PRN Reason: Nausea/Vomiting Promethazine HCl/Codeine (Phenergan/Codeine Oral Syrup) 5 ml PO Q4 PRN PRN Reason: Cough Last Admin: 01/23/17 21:43 Dose: 5 ml Saccharomyces Boulardii (Florastor) 250 mg PO BID [facility] Last Admin: 01/27/17 19:08 Dose: 250 mg - Labs Labs: 01/27/17 07:10 01/27/17 07:10 PT 13.2 SECONDS (9.7-12.2) H 01/20/17 19:37 INR 1.2 01/20/17 19:37 APTT 32 SECONDS (21-34) 01/20/17 19:37 Attending/Attestation - Attestation I have personally seen and examined this patient.: Yes I have fully participated in the care of the patient.: Yes I have reviewed all pertinent clinical information, including history, physical exam and plan: Yes Notes (Text): 01/27/17 20:44 Patient was seen and examined on 01/27/17 Exam, assessment and plan were thoroughly gone over with the resident. Assessments: Elevated Troponin: likely secondary to episode of V Tach. Cardiac Cath performed by Dr. Pryor 01/27/17 showed clean coronaries. Therapeutic Lovenox was placed on hold after tonights dose in anticipation for bronchoscopy morning of . Luekocytosis: repeat blood cultures negative, Sputum x [address] negative[address] with ID Dr. Calzada who was coverning for Dr. Carias and he recommended Bronchial Washing with cultures. Spoke with Civil Engineering Project Designer Dr. Mckeon (as racing car driver Dr. Barrow has not responded to our calls to see this patient) and he will perform bronchoscopy for morning 01/28/[address]. [address] Carias and she recommended restarting antibiotics and Zyvox and Meropenem and these have been added considering the luekocytosis and fever Hyponatremia: today Na is 131. Monitor for now and follow up 01/28/17 labs. Hx Bacteremia: repeat cultures have been negative Hx of TB Prophylaxis: he was on INH upon admission but currently not on anything. Sputum x [address] Chest 01/26/17 shows no change when compared to 01/20/17 (please see full reports). 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 Aspirin Hx Constipation: resolved Anemia: stable Hx Hypothyroidism Hx Vertigo: resolved and was likely secondary to the Minocycline that patient was on at the time of admission and once discontinued, this issue resolved and has not recurred Hx Diarrhea: resolved Hx Bilateral Lower Leg Edema: duplex are negative, much improved and now mild non-pitting edema Hx Elevated LFTs: resolved Ian Gresham D.O.
[2017-01-27] MEDS ORDERED: Amiodarone 150mg/3 ml vial ONE (16:54)
[2017-01-27] MEDS ORDERED: Lidocaine 2 Grams in D5W 0 MG/0 ML BAG IV ONE (16:54)
[2017-01-27] MEDS ORDERED: Iohexol 350mg/ml 100 ML ONE ×2 (16:56→17:06)
[2017-01-27] MEDS ORDERED: Midazolam 2 MG/2 ML VIAL ONE (17:19)
--- NOTE | 2017-01-27 17:22 | CP.PCM.PN ---
Subjective - Date & Time of Evaluation Date of Evaluation: 01/27/17 Time of Evaluation: 17:21 - Subjective Subjective: Patient s/p Cath Normal Coronaries Normal EF by ECHO Further mgt as per EP I will sign off Thank you Objective - Vital Signs/Intake and Output Vital Signs (last 24 hours): Temp Pulse Resp BP Pulse Ox 101.1 F H 106 H 20 126/72 97 01/27/17 09:41 01/27/17 08:39 01/27/17 07:00 01/27/17 14:21 01/27/17 07:00 Intake and Output: 01/27/17 01/27/17 06:59 18:59 Intake Total 420 Balance 420 - Medications Medications: Current Medications Acetaminophen (Tylenol 325mg Tab) 650 mg PO Q6 PRN PRN Reason: Fever >100.4 F Last Admin: 01/27/17 09:41 Dose: 650 mg Aspirin (Aspirin Chewable) 81 mg PO DAILY [facility] Last Admin: 01/27/17 14:22 Dose: Not Given Calcium Carbonate (Tums) 500 mg PO BID [facility] Last Admin: 01/27/17 14:22 Dose: Not Given Docusate Sodium (Colace) 100 mg PO TID [facility] Last Admin: 01/27/17 14:21 Dose: 100 mg Enoxaparin Sodium (Lovenox) 60 mg SC Q12 [facility] Last Admin: 01/27/17 14:22 Dose: Not Given Famotidine (Pepcid) 20 mg PO BID [facility] Last Admin: 01/27/17 09:41 Dose: 20 mg Guaifenesin (Mucinex La) 600 mg PO BID [facility] Last Admin: 01/27/17 09:41 Dose: 600 mg Meropenem 1 gm/ Sodium (Chloride) 100 mls @ 100 mls/hr IVPB Q8 [facility] Linezolid (Zyvox 600mg/300ml D5w) 600 mg in 300 mls @ 300 mls/hr IVPB Q12H [facility] Ipratropium [place] (Atrovent Hfa) 2 puff IH RQ6 PRN PRN Reason: Shortness of Breath Levothyroxine Sodium (Synthroid) 88 mcg PO DAILY@0630 [facility] Last Admin: 01/27/17 06:44 Dose: 88 mcg Metoprolol Tartrate (Lopressor) 25 mg PO Q6H [facility] Last Admin: 01/27/17 14:21 Dose: 25 mg Ondansetron HCl (Zofran Inj) 4 mg IVP Q6H PRN PRN Reason: Nausea/Vomiting Promethazine HCl/Codeine (Phenergan/Codeine Oral Syrup) 5 ml PO Q4 PRN PRN Reason: Cough Last Admin: 01/23/17 21:43 Dose: 5 ml Saccharomyces Boulardii (Florastor) 250 mg PO BID [facility] Last Admin: 01/27/17 09:41 Dose: 250 mg - Labs Labs: 01/27/17 07:10 01/27/17 07:10 PT 13.2 SECONDS (9.7-12.2) H 01/20/17 19:37 INR 1.2 01/20/17 19:37 APTT 32 SECONDS (21-34) 01/20/17 19:37
[2017-01-27] MEDS: Meropenem 1 GM in Sodium Chloride 0.9% 100 ML IVPB SCH ×2 (19:06→21:29)
[2017-01-27] MEDS: Sodium Chloride 0.9% 1,000 ML IV SCH (19:07)
--- NOTE | 2017-01-27 19:11 | CARD ---
APPROVED REPORT EXAM: Two-dimensional and M-mode echocardiogram with Doppler and color Doppler. Other Information Quality : GoodRhythm : NSR INDICATION Dizziness and Vertigo Dyspnea FEVER; ANEMIA M-Mode DIMENSIONS RVDd1.75 (2.1-3.2cm)Left Atrium (MM)3.58 (2.5-4.0cm) IVSd1.31 (0.7-1.1cm)Aortic Root3.10 (2.2-3.7cm) LVDd4.56 (4.0-5.6cm)Aortic Cusp Exc.1.97 (1.5-2.0cm) PWd1.09 (0.7-1.1cm)FS (%) 45 % LVDs2.52 (2.0-3.8cm)LVEF (%)76 (>50%) Mitral Valve MV E Chnnxalc553.2cm/sMV A Wzlwdtnv727.9cm/sE/A ratio0.9 TDI E/Lateral E'0.0E/Medial E'0.0 Tricuspid Valve TR Peak [id number]/sTR Peak Gr.[id number] <Conclusion> normal size la,lv & ra rv. normal lv wall motion & systolic function with lvef of 65-70%. mild concentric lvh. elevated la pressures. normal aortic,mitral,tv & pv. mild mr,tr with calculated pulmonary systolic pressures of 52 mm of hg,c/w moderate degree of pulmonary hypertension. no pericardial effusion. normal size aortic root. clinical correlation is adv.
[2017-01-27] MEDS: Linezolid 600 mg in D5W 300 ml 600 MG/300 ML BAG IVPB SCH (20:09)
[2017-01-27] MEDS ORDERED: Linezolid 600 mg in D5W 300 ml 600 MG/300 ML BAG IVPB SCH (22:00)
[2017-01-28 00:42] LABS: RBC URINE < 1 /hpf (0-3); URINE BACTERIA RARE (<OCC); URINE BILIRUBIN NEGATIVE (NEGATIVE); URINE BLOOD NEGATIVE (NEGATIVE); URINE COLOR Yellow (YELLOW); URINE GLUCOSE (UA) NORMAL (Normal); URINE KETONE NEGATIVE (NEGATIVE); URINE LEUKOCYTE ESTERASE NEG Leu/uL (Negative); URINE PROTEIN NEGATIVE (NEGATIVE); URINE UROBILINOGEN NORMAL mg/dL (0.2-1.0); WBC URINE 1 /hpf (0-5)
[2017-01-28] MEDS: Promethazine/Cod 6.25mg-10mg/5ml Syr UD PO PRN (03:13)
[2017-01-28] MEDS: Linezolid 600 mg in D5W 300 ml 600 MG/300 ML BAG IVPB SCH ×2 (03:16→17:32)
--- NOTE | 2017-01-28 03:40 | CARDCATH ---
PROCEDURE DATE: 01/27/2017 PROCEDURE: Coronary angiogram. REFERRING PHYSICIANS: 1. Shanthi Silva MD 2. Ian Gresham DO CLINICAL INDICATIONS: Ventricular tachycardia. PROCEDURE: After informed consent, the patient was prepped and draped in the usual sterile fashion. A 2% lidocaine was given in the right groin for local anesthesia. Using micropuncture technique, a 6-Israeli sheath was introduced into the right common femoral artery. Using the usual diagnostic catheter, coronary angiogram was performed. The patient tolerated the procedure well. FINDINGS: 1. Left main coronary artery is patent. 2. LAD and diagonal branches are patent. 3. Left circumflex coronary artery is patent. 4. Right coronary artery is patent. 5. LV ejection fraction is normal by echocardiogram. IMPRESSION: 1. Normal coronaries. 2. Normal left ventricular function by echocardiogram. PLAN: Recommend medical management. Juan Francisco Pryor MD
[2017-01-28] MEDS: Sodium Chloride 0.9% 1,000 ML IV SCH (03:58)
[2017-01-28] MEDS: Meropenem 1 GM in Sodium Chloride 0.9% 100 ML IVPB SCH ×3 (05:57→21:41)
[2017-01-28] MEDS: Levothyroxine 88 MCG TAB PO SCH (05:58)
[2017-01-28 07:20] LABS: BASO # 0.1 K/uL (0.0-0.2); BASO % 0.4 % (0.0-2.0); EOS # 0.3 K/uL (0.0-0.7); EOS % 1.9 % (0.0-4.0); HEMATOCRIT 28.7 % (35.0-51.0); LYMPH # 1.2 K/uL (1.0-4.3); LYMPH % 7.4 % (20.0-40.0); MEAN CELL VOLUME 83.1 fL (80.0-94.0); MEAN CORPUSCULAR HEMOGLOBIN 27.1 pg (27.0-31.0); MEAN CORPUSCULAR HGB CONC 32.6 g/dL (33.0-37.0); MEAN PLATELET VOLUME 8.1 fL (7.2-11.7); MONO # 0.4 K/uL (0.0-0.8); MONO % 2.4 % (0.0-10.0); PLATELET COUNT 492 K/uL (130-400); RED CELL DISTRIBUTION WIDTH 20.3 % (11.5-14.5)
[2017-01-28 07:31] LABS: CHLORIDE 103 mmol/L (98-107); SODIUM 132 mmol/L (132-148)
[2017-01-28 07:32] LABS: POTASSIUM 3.8 mmol/L (3.6-5.2)
[2017-01-28 07:34] LABS: ALB/GLOB RATIO 0.5 (1.0-2.1); ALKALINE PHOSPHATASE 110 U/L (38-126); ALT/SGPT 43 U/L (21-72); AST/SGOT 43 U/L (17-59); BILIRUBIN,TOTAL 0.4 mg/dL (0.2-1.3); BLOOD UREA NITROGEN 12 mg/dL (9-20); CARBON DIOXIDE 25 mmol/L (22-30); GFR AFRICAN-AMERICAN > 60; GLUCOSE,RANDOM 88 mg/dL (75-110); TOTAL PROTEIN 7.3 g/dL (6.3-8.3)
[2017-01-28 09:20] LABS: EOSINOPHIL 4 % (0-4); NEUTROPHIL 86 % (50-75); TOTAL CELLS COUNTED 100
[2017-01-28] MEDS: Saccharomyces Boulardi 250 mg Cap PO SCH ×2 (09:40→17:32)
[2017-01-28] MEDS: guaiFENesin 600 mg ER Tab PO SCH ×2 (09:40→17:32)
--- NOTE | 2017-01-28 10:04 | CP.PCM.PN ---
<NICOLASA IGLESIAS - Last Filed: 01/28/17 10:01> Subjective - Date & Time of Evaluation Date of Evaluation: 01/28/17 Time of Evaluation: 10:01 - Subjective Subjective: Nicolasa Iglesias, PGY1, Progress Note for Dr. Silva: Pt seen and examined at bedside. Pt had low grade fever overnight, 100.3F. Pt denies cp, sob, palpitations, fever, diaphoresis, abdominal pain. Objective - Vital Signs/Intake and Output Vital Signs (last 24 hours): Temp Pulse Resp BP Pulse Ox 98.7 F 89 20 109/56 L 100 01/28/17 08:16 01/28/17 08:41 01/28/17 08:16 01/28/17 09:41 01/28/17 08:16 Intake and Output: 01/28/17 01/28/17 06:59 18:59 Intake Total 800 Output Total 600 Balance 200 - Medications Medications: Current Medications Acetaminophen (Tylenol 325mg Tab) 650 mg PO Q6 PRN PRN Reason: Fever >100.4 F Last Admin: 01/27/17 09:41 Dose: 650 mg Aspirin (Aspirin Chewable) 81 mg PO DAILY [facility] Last Admin: 01/27/17 14:22 Dose: Not Given Calcium Carbonate (Tums) 500 mg PO BID [facility] Last Admin: 01/27/17 19:13 Dose: Not Given Docusate Sodium (Colace) 100 mg PO TID [facility] Last Admin: 01/28/17 09:40 Dose: 100 mg Enoxaparin Sodium (Lovenox) 60 mg SC Q12 [facility] Last Admin: 01/27/17 14:22 Dose: Not Given Famotidine (Pepcid) 20 mg PO BID [facility] Last Admin: 01/28/17 09:40 Dose: 20 mg Guaifenesin (Mucinex [place]) 600 mg PO BID [facility] Last Admin: 01/28/17 09:40 Dose: 600 mg Meropenem 1 gm/ Sodium (Chloride) 100 mls @ 100 mls/hr IVPB Q8 [facility] Last Admin: 01/28/17 05:57 Dose: 100 mls/hr Linezolid (Zyvox 600mg/300ml D5w) 600 mg in 300 mls @ 300 mls/hr IVPB Q12H [facility] Last Admin: 01/28/17 03:16 Dose: 300 mls/hr Sodium Chloride (Sodium Chloride 0.9%) 1,000 mls @ 100 mls/hr IV .Q10H [facility] Last Admin: 01/28/17 03:58 Dose: Not Given Ipratropium [place] (Atrovent Hfa) 2 puff IH RQ6 PRN PRN Reason: Shortness of Breath Levothyroxine Sodium (Synthroid) 88 mcg PO DAILY@0630 [facility] Last Admin: 01/28/17 05:58 Dose: 88 mcg Metoprolol Tartrate (Lopressor) 25 mg PO Q6H [facility] Last Admin: 01/28/17 09:41 Dose: 25 mg Ondansetron HCl (Zofran Inj) 4 mg IVP Q6H PRN PRN Reason: Nausea/Vomiting Promethazine HCl/Codeine (Phenergan/Codeine Oral Syrup) 5 ml PO Q4 PRN PRN Reason: Cough Last Admin: 01/28/17 03:13 Dose: 5 ml Saccharomyces Boulardii (Florastor) 250 mg PO BID [facility] Last Admin: 01/28/17 09:40 Dose: 250 mg - Labs Labs: 01/28/17 06:53 01/28/17 06:53 PT 13.2 SECONDS (9.7-12.2) H 01/20/17 19:37 INR 1.2 01/20/17 19:37 APTT 32 SECONDS (21-34) 01/20/17 19:37 - Constitutional Appears: No Acute Distress - Head Exam Head Exam: ATRAUMATIC, NORMOCEPHALIC - Eye Exam Eye Exam: PERRL - ENT Exam ENT Exam: Mucous Membranes Moist - Respiratory Exam Respiratory Exam: Decreased Breath Sounds, Rhonchi - Cardiovascular Exam Cardiovascular Exam: REGULAR RHYTHM, +S1, +S2. absent: Murmur - GI/Abdominal Exam GI & Abdominal Exam: Soft, Normal Bowel Sounds. absent: Tenderness - Extremities Exam Extremities Exam: absent: Calf Tenderness, Pedal Edema - Neurological Exam Neurological Exam: Alert, Awake, Oriented x3 - Psychiatric Exam Psychiatric exam: Normal Mood - Skin Skin Exam: Dry, Warm Assessment and Plan - Assessment and Plan (Free Text) Assessment: 51M with hx of TB, hypothyroidism, admitted for vertigo, found to have multilobar pneumonia. Cardiology consulted for asymptomatic v. tach episode. Trop elevated x4, + d dimer, EKG shows sinus tachycardia, CTA chest neg for PE. Cardiac cath showed normal coronaries. Plan: On 01/26, pt had an episode of 18 beats of V tach. - EKG shows sinus tachycardia - Pt describes chronic sob, denies f/c/n/v, diaphoresis, dizziness, abdominal pain, cp. - D dimer elevated, 3929, CTA neg for PE. B/l airspace opacities with LL predominance and associated bronchiectasis. Small bulla present. Trace b/l pleural effusions. - trop 0.2280->0.1810->0.2200->0.2750. - CK-MB 3.2->4.12->3.89 - C/w ASA 81 mg Po daily and Metoprolol tartrate 25mg PO q6h - Cardiac cath (with Dr. Pryor) 01/27 showed normal coronaries and nrml L ventricular function. - No further interventions by Cardiology. - Continue other systems management per primary team. Discussed with Dr. Silva. Dakota Iglesias, PGY1 <Shanthi Silva A - Last Filed: 02/23/17 03:21> Objective - Vital Signs/Intake and Output Vital Signs (last 24 hours): Temp Pulse Resp BP Pulse Ox 99.0 F 75 20 110/67 97 02/22/17 23:50 02/22/17 23:50 02/22/17 23:50 02/22/17 23:50 02/22/17 23:50 Intake and Output: 02/22/17 02/23/17 18:59 06:59 Intake Total 200 580 Balance 200 580 - Medications Medications: Current Medications Acetaminophen (Tylenol 325mg Tab) 650 mg PO Q6 PRN PRN Reason: Fever >100.4 F Last Admin: 02/15/17 10:17 Dose: 650 mg Amiodarone HCl (Cordarone) 200 mg PO BID [facility] Last Admin: 02/22/17 22:19 Dose: 200 mg Enoxaparin Sodium (Lovenox) 40 mg SC DAILY [facility] Last Admin: 02/22/17 09:59 Dose: 40 mg Guaifenesin (Mucinex La) 600 mg PO BID [facility] Last Admin: 02/22/17 18:16 Dose: 600 mg Aztreonam 2 gm/ Sodium (Chloride) 100 mls @ 200 mls/hr IVPB Q8H [facility] Last Admin: 02/22/17 21:22 Dose: 200 mls/hr Ibuprofen (Motrin Tab) 600 mg PO TID PRN PRN Reason: fever Last Admin: 02/22/17 00:35 Dose: 600 mg Ipratropium [place] (Atrovent Hfa) 2 puff IH RQ6 PRN PRN Reason: Shortness of Breath Lactic Acid (Lac-Hydrin 12% Lotion (225 G)) 225 gm EXT Q1H PRN PRN Reason: Dry skin Last Admin: 02/04/17 18:34 Dose: 1 applic Levothyroxine Sodium (Synthroid) 112 mcg PO DAILY@0630 [facility] Last Admin: 02/22/17 05:31 Dose: 112 mcg Ondansetron HCl (Zofran Inj) 4 mg IVP Q6H PRN PRN Reason: nausea Last Admin: 02/14/17 18:46 Dose: 4 mg Promethazine HCl/Codeine (Phenergan/Codeine Oral Syrup) 5 ml PO Q4 PRN PRN Reason: Cough Last Admin: 02/14/17 18:15 Dose: 5 ml Tramadol HCl (Ultram) 25 mg PO BID PRN PRN Reason: Pain, moderate (4-7) Last Admin: 02/19/17 18:11 Dose: 25 mg - Labs Labs: 02/22/17 08:21 02/22/17 08:21 PT 13.2 SECONDS (9.7-12.2) H 01/20/17 19:37 INR 1.2 01/20/17 19:37 APTT 32 SECONDS (21-34) 01/20/17 19:37 Attending/Attestation - Attestation I have personally seen and examined this patient.: Yes I have fully participated in the care of the patient.: Yes I have reviewed all pertinent clinical information, including history, physical exam and plan: Yes Notes (Text): 02/23/17 03:21 No ventricular tachycardia no vt BP stable
[2017-01-28] MEDS: Enoxaparin 60 mg Syringe SC SCH (13:45)
[2017-01-28] MEDS: Calcium Carbonate 500 mg Chewable Antacid Tab PO SCH ×2 (13:46→17:33)
--- NOTE | 2017-01-28 15:03 | CP.PCM.PN ---
<Juan Francisco Gonzales - Last Filed: 01/28/17 15:31> Subjective - Date & Time of Evaluation Date of Evaluation: 01/28/17 Time of Evaluation: 15:00 - Subjective Subjective: PGY-[address] Gresham HPI: Patient seen and examined at bedside. Still complaining of SOB. No other complaints at this time. Described he would be going for a bronch today with Dr. Mckeon. He understands and agrees with the plan. Denies any chest pain, N/V/D or fevers. Objective - Vital Signs/Intake and Output Vital Signs (last 24 hours): Temp Pulse Resp BP Pulse Ox 98.7 F 89 20 102/57 L 100 01/28/17 08:16 01/28/17 08:41 01/28/17 08:16 01/28/17 14:19 01/28/17 08:16 Intake and Output: 01/28/17 01/28/17 06:59 18:59 Intake Total 800 Output Total 600 Balance 200 - Medications Medications: Current Medications Acetaminophen (Tylenol 325mg Tab) 650 mg PO Q6 PRN PRN Reason: Fever >100.4 F Last Admin: 01/27/17 09:41 Dose: 650 mg Aspirin (Aspirin Chewable) 81 mg PO DAILY [facility] Last Admin: 01/28/17 13:45 Dose: Not Given Calcium Carbonate (Tums) 500 mg PO BID [facility] Last Admin: 01/28/17 13:46 Dose: Not Given Docusate Sodium (Colace) 100 mg PO TID [facility] Last Admin: 01/28/17 13:45 Dose: 100 mg Enoxaparin Sodium (Lovenox) 60 mg SC Q12 [facility] Last Admin: 01/28/17 13:45 Dose: Not Given Famotidine (Pepcid) 20 mg PO BID [facility] Last Admin: 01/28/17 09:40 Dose: 20 mg Guaifenesin (Mucinex La) 600 mg PO BID [facility] Last Admin: 01/28/17 09:40 Dose: 600 mg Meropenem 1 gm/ Sodium (Chloride) 100 mls @ 100 mls/hr IVPB Q8 [facility] Last Admin: 01/28/17 13:45 Dose: 100 mls/hr Linezolid (Zyvox 600mg/300ml D5w) 600 mg in 300 mls @ 300 mls/hr IVPB Q12H [facility] Last Admin: 01/28/17 03:16 Dose: 300 mls/hr Sodium Chloride (Sodium Chloride 0.9%) 1,000 mls @ 100 mls/hr IV .Q10H [facility] Last Admin: 01/28/17 03:58 Dose: Not Given Ipratropium Antigo (Atrovent Hfa) 2 puff IH RQ6 PRN PRN Reason: Shortness of Breath Levothyroxine Sodium (Synthroid) 88 mcg PO DAILY@0630 [facility] Last Admin: 01/28/17 05:58 Dose: 88 mcg Metoprolol Tartrate (Lopressor) 25 mg PO Q6H [facility] Last Admin: 01/28/17 14:19 Dose: Not Given Ondansetron HCl (Zofran Inj) 4 mg IVP Q6H PRN PRN Reason: Nausea/Vomiting Promethazine HCl/Codeine (Phenergan/Codeine Oral Syrup) 5 ml PO Q4 PRN PRN Reason: Cough Last Admin: 01/28/17 03:13 Dose: 5 ml Saccharomyces Boulardii (Florastor) 250 mg PO BID [facility] Last Admin: 01/28/17 09:40 Dose: 250 mg - Labs Labs: 01/28/17 06:53 01/28/17 06:53 PT 13.2 SECONDS (9.7-12.2) H 01/20/17 19:37 INR 1.2 01/20/17 19:37 APTT 32 SECONDS (21-34) 01/20/17 19:37 - Constitutional Appears: Well, Non-toxic, No Acute Distress - Head Exam Head Exam: NORMAL INSPECTION - Eye Exam Eye Exam: EOMI - ENT Exam ENT Exam: Mucous Membranes Moist - Respiratory Exam Respiratory Exam: Clear to Ausculation Bilateral - Cardiovascular Exam Cardiovascular Exam: REGULAR RHYTHM, RRR - GI/Abdominal Exam GI & Abdominal Exam: Soft, Normal Bowel Sounds. absent: Rigid, Tenderness - Extremities Exam Extremities Exam: Full ROM. absent: Joint Swelling, Tenderness - Neurological Exam Neurological Exam: Alert, Awake, Oriented x3 - Psychiatric Exam Psychiatric exam: Normal Affect, Normal Mood - Skin Skin Exam: Dry, Intact, Normal Color, Warm Assessment and Plan - Assessment and Plan (Free Text) Assessment: Diffuse Macular Rash - Resolved Possibly secondary to antibiotics Continue to monitor Respiratory infection ID (Mangia) recommends to hold INH given that AFB is negative and quantiferon indeterminate * Consider Aspergillus/Histo ID (Jv) reccs: Zyvox 600mg IV Q12, Meropenem 1g IV Q8 Pulm (Mike): F/u Bronch results Imaging: * Barium swallow: No aspiration * 01/19 CXR: bibasilar opacities, opacitiy in Right upper lobe, small b/l pleural effusion * 01/21: Chest CT: interstital pneumonitis Vs collagen vascular disease Vs Cryptogenic organizing pneumonia V sarcoid * 01/26: Chest CT: B/l LL opacities Fever PNA 01/27: Tmax 101.4 Patient refuses hypothermic blanket Bacteremia - Resolved All cultures negative Pancreatic Lesion CT Pancreas (01/19): redemonstrated pancreatic mass. GI recs = repeat imaging in 6mo Constipation - RESOLVED Miralax and Colace 100 mg po TID Anemia Iron studies: * Iron 75 * TIBC : 207 * % Saturation: 34 * Ferritin: 454 Monitor H/H History of hypothyroidism Continue home medication: * Synthroid 88mcg PO daily * TSH normal Vertigo - Resolved Possibly secondary to drug-induced (Minocycline HCl - discontinued) 01/02: HIV antibody 1 and 2 screen ordered: Negative CT head: No acute findings Brain MRI: No infarct, Unremarkable Carotid doppler: No significant stenosis Diarrhea - RESOLVED C. diff negative; O/P negative Lower Extremity Edema Ankle X-ray: No fracture or arthritis. Mild circumferential soft tissue swelling bilaterally Has decreased substantially Elevated LFTs - RESOLVED 01/20: Abdominal US = hepatic steatosis Vs parenchymal infection/inflammation. No GS or biliary dilation Vtach Patient Had Rapid called on 01/26 for Vtach - was asx Cath on 01/27 - Normal coronaries, normal EF by echo Started on Metoprolol 25 Q6H Echo - EF 65-70 Prophylactic measure SCDs Ambulating Pepcid 20mg PO BID Florastor 250mg PO BID Lovenox 30mg SC Q12 <Ian Gresham - Last Filed: 01/28/17 21:23> Objective - Vital Signs/Intake and Output Vital Signs (last 24 hours): Temp Pulse Resp BP Pulse Ox 98.1 F 92 H 20 99/64 L 98 01/28/17 15:09 01/28/17 15:09 01/28/17 15:09 01/28/17 15:07 01/28/17 15:07 - Medications Medications: Current Medications Acetaminophen (Tylenol 325mg Tab) 650 mg PO Q6 PRN PRN Reason: Fever >100.4 F Last Admin: 01/27/17 09:41 Dose: 650 mg Aspirin (Aspirin Chewable) 81 mg PO DAILY [facility] Last Admin: 01/28/17 13:45 Dose: Not Given Calcium Carbonate (Tums) 500 mg PO BID [facility] Last Admin: 01/28/17 17:33 Dose: Not Given Docusate Sodium (Colace) 100 mg PO TID [facility] Last Admin: 01/28/17 17:32 Dose: 100 mg Enoxaparin Sodium (Lovenox) 30 mg SC Q12H [facility] Last Admin: 01/28/17 17:39 Dose: 30 mg Famotidine (Pepcid) 20 mg PO BID [facility] Last Admin: 01/28/17 17:32 Dose: 20 mg Guaifenesin (Mucinex La) 600 mg PO BID [facility] Last Admin: 01/28/17 17:32 Dose: 600 mg Meropenem 1 gm/ Sodium (Chloride) 100 mls @ 100 mls/hr IVPB Q8 [facility] Last Admin: 01/28/17 13:45 Dose: 100 mls/hr Linezolid (Zyvox 600mg/300ml D5w) 600 mg in 300 mls @ 300 mls/hr IVPB Q12H [facility] Last Admin: 01/28/17 17:32 Dose: 300 mls/hr Sodium Chloride (Sodium Chloride 0.9%) 1,000 mls @ 100 mls/hr IV .Q10H [facility] Last Admin: 01/28/17 03:58 Dose: Not Given Ipratropium Antigo (Atrovent Hfa) 2 puff IH RQ6 PRN PRN Reason: Shortness of Breath Levothyroxine Sodium (Synthroid) 88 mcg PO DAILY@0630 [facility] Last Admin: 01/28/17 05:58 Dose: 88 mcg Metoprolol Tartrate (Lopressor) 25 mg PO Q6H [facility] Last Admin: 01/28/17 14:19 Dose: Not Given Ondansetron HCl (Zofran Inj) 4 mg IVP Q6H PRN PRN Reason: Nausea/Vomiting Promethazine HCl/Codeine (Phenergan/Codeine Oral Syrup) 5 ml PO Q4 PRN PRN Reason: Cough Last Admin: 01/28/17 03:13 Dose: 5 ml Saccharomyces Boulardii (Florastor) 250 mg PO BID [facility] Last Admin: 01/28/17 17:32 Dose: 250 mg - Labs Labs: 01/28/17 06:53 01/28/17 06:53 PT 13.2 SECONDS (9.7-12.2) H 01/20/17 19:37 INR 1.2 01/20/17 19:37 APTT 32 SECONDS (21-34) 01/20/17 19:37 Attending/Attestation - Attestation I have personally seen and examined this patient.: Yes I have fully participated in the care of the patient.: Yes I have reviewed all pertinent clinical information, including history, physical exam and plan: Yes Notes (Text): 01/28/17 21:17 Patient was seen and examined on 01/28/17 at 3:30 PM Exam, assessment and plan were thoroughly gone over with the resident. ROS: Hungry as he has been NPO for pending Bronchial Wash In addition to the above on Exam: Respiratory: Faint inspiratory bibasilar inspiratory crackles Ext: mild nonpitting edema involving the bilateral ankles Assessments: Elevated Troponin: likely secondary to episode of V Tach. Cardiac Cath performed by Dr. Pryor 01/27/17 showed clean coronaries. Therapeutic Lovenox was restarted Luekocytosis: repeat blood cultures negative, Sputum x 3 negative. Spoke with ID Dr. Calzada who was coverning for Dr. Carias and he recommended Bronchial Washing with cultures. Spoke with Virology Teacher Dr. Mckeon (as community dietitian Dr. Barrow has not responded to our calls to see this patient) and he had planned to perform bronchoscopy for morning 01/28/17. However, OR schedule did not free up, therefore Dr. Mckeon to schedule the bronchoscopy/bronchial washing for Thursday01/30/17. After speaking with Dr. Carias on 01/27/17 she recommended restarting antibiotics and Zyvox and Meropenem and these were added considering the luekocytosis and fever Hyponatremia: today Na is 121. Monitor for now and follow up 01/29/17 labs. Hx Bacteremia: repeat cultures have been negative to date. Hx of TB Prophylaxis: he was on INH upon admission but currently not on anything. Sputum x [address] Chest 01/26/17 shows no change when compared to 01/20/17 (please see full reports). Sputum culture 01/26/17 showed yeast species but before starting treatment, pending brochoscopy/bronchial washings for 01/30/17 will be better study to determine if yeast is present. 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 Aspirin Hx Constipation: resolved Anemia: stable Hx Hypothyroidism Hx Vertigo: resolved and was likely secondary to the Minocycline that patient was on at the time of admission and once discontinued, this issue resolved and has not recurred Hx Diarrhea: resolved Hx Bilateral Lower Leg Edema: duplex are negative, much improved and now mild non-pitting edema involving the ankles Hx Elevated LFTs: resolved Ian Gresham D.O.
[2017-01-28] MEDS ORDERED: Enoxaparin 30 mg Syringe SC SCH ×2 (15:31→18:00)
--- NOTE | 2017-01-28 19:28 | CARD ---
APPROVED REPORT EKG Measurement Heart [id number] <Conclusion> Normal sinus rhythm
--- NOTE | 2017-01-28 19:30 | CARD ---
APPROVED REPORT EKG Measurement Heart [id number] <Conclusion> Sinus tachycardia Left axis deviation Abnormal ECG
[2017-01-29] MEDS: Linezolid 600 mg in D5W 300 ml 600 MG/300 ML BAG IVPB SCH ×2 (04:40→17:56)
[2017-01-29] MEDS: Sodium Chloride 0.9% 1,000 ML IV SCH ×4 (04:41→21:52)
[2017-01-29] MEDS: Meropenem 1 GM in Sodium Chloride 0.9% 100 ML IVPB SCH ×3 (05:06→21:56)
[2017-01-29] MEDS: Levothyroxine 88 MCG TAB PO SCH (06:34)
[2017-01-29 07:38] LABS: BASO # 0.1 K/uL (0.0-0.2); BASO % 0.4 % (0.0-2.0); EOS # 0.3 K/uL (0.0-0.7); EOS % 2.6 % (0.0-4.0); HEMATOCRIT 26.8 % (35.0-51.0); LYMPH # 1.2 K/uL (1.0-4.3); LYMPH % 8.7 % (20.0-40.0); MEAN CELL VOLUME 82.6 fL (80.0-94.0); MEAN CORPUSCULAR HEMOGLOBIN 27.4 pg (27.0-31.0); MEAN CORPUSCULAR HGB CONC 33.1 g/dL (33.0-37.0); MEAN PLATELET VOLUME 7.9 fL (7.2-11.7); MONO # 0.3 K/uL (0.0-0.8); MONO % 2.6 % (0.0-10.0); PLATELET COUNT 441 K/uL (130-400); RED CELL DISTRIBUTION WIDTH 20.1 % (11.5-14.5); WHITE BLOOD COUNT 13.2 K/uL (4.8-10.8)
[2017-01-29] MEDS ORDERED: EPINEPHrine 1 mg/ml (1:1000) Inj ONE (08:28)
[2017-01-29] MEDS ORDERED: Lidocaine 2% Inj (20ml) ONE (08:28)
[2017-01-29 08:35] LABS: ALB/GLOB RATIO 0.4 (1.0-2.1); ALKALINE PHOSPHATASE 106 U/L (38-126); ALT/SGPT 36 U/L (21-72); AST/SGOT 43 U/L (17-59); BILIRUBIN,TOTAL 0.4 mg/dL (0.2-1.3); BLOOD UREA NITROGEN 10 mg/dL (9-20); CARBON DIOXIDE 23 mmol/L (22-30); CHLORIDE 103 mmol/L (98-107); GFR AFRICAN-AMERICAN > 60; GLUCOSE,RANDOM 94 mg/dL (75-110); POTASSIUM 3.9 mmol/L (3.6-5.2); SODIUM 134 mmol/L (132-148); TOTAL PROTEIN 7.1 g/dL (6.3-8.3)
[2017-01-29 09:20] LABS: BASOPHIL 1 % (0-2); EOSINOPHIL 3 % (0-4); NEUTROPHIL 88 % (50-75); TOTAL CELLS COUNTED 100
[2017-01-29 09:21] LABS: LARGE PLATELETS PRESENT
[2017-01-29] MEDS ORDERED: Propofol 10 mg/ml Inj (20 ML) ONE (09:34)
[2017-01-29] MEDS ORDERED: Midazolam 2 MG/2 ML VIAL ONE (09:34)
[2017-01-29] MEDS ORDERED: Enoxaparin 40 mg Syringe SC SCH (10:00)
[2017-01-29] MEDS: Calcium Carbonate 500 mg Chewable Antacid Tab PO SCH ×2 (10:54→17:56)
[2017-01-29] MEDS: guaiFENesin 600 mg ER Tab PO SCH ×2 (10:54→17:55)
[2017-01-29] MEDS: Saccharomyces Boulardi 250 mg Cap PO SCH ×2 (10:54→17:55)
--- NOTE | 2017-01-29 15:09 | CP.PCM.PN ---
<Juan Francisco Gonzales - Last Filed: 01/29/17 15:19> Subjective - Date & Time of Evaluation Date of Evaluation: 01/29/17 Time of Evaluation: 15:05 - Subjective Subjective: PGY1 Note for Dr. Gresham HPI: Patient see and examined at bedside. Doing well. Complained of SOB overnight. Subjective fever over night. Denies swelling in the ankles or wrists overnight. Told patient that the Bronch will be tomorrow and he agrees with that plan. No other complaints at this time. Objective - Vital Signs/Intake and Output Vital Signs (last 24 hours): Temp Pulse Resp BP Pulse Ox 98.3 F 76 20 113/53 L 98 01/29/17 07:25 01/29/17 12:09 01/29/17 07:25 01/29/17 14:11 01/29/17 07:25 Intake and Output: 01/29/17 01/29/17 06:59 18:59 Intake Total 1850 Balance 1850 - Medications Medications: Current Medications Acetaminophen (Tylenol 325mg Tab) 650 mg PO Q6 PRN PRN Reason: Fever >100.4 F Last Admin: 01/29/17 05:02 Dose: 650 mg Aspirin (Aspirin Chewable) 81 mg PO DAILY [facility] Last Admin: 01/29/17 10:54 Dose: 81 mg Calcium Carbonate (Tums) 500 mg PO BID [facility] Last Admin: 01/29/17 10:54 Dose: 500 mg Docusate Sodium (Colace) 100 mg PO TID [facility] Last Admin: 01/29/17 14:11 Dose: 100 mg Famotidine (Pepcid) 20 mg PO BID [facility] Last Admin: 01/29/17 10:54 Dose: 20 mg Guaifenesin (Mucinex La) 600 mg PO BID [facility] Last Admin: 01/29/17 10:54 Dose: 600 mg Meropenem 1 gm/ Sodium (Chloride) 100 mls @ 100 mls/hr IVPB Q8 [facility] Last Admin: 01/29/17 14:11 Dose: 100 mls/hr Linezolid (Zyvox 600mg/300ml D5w) 600 mg in 300 mls @ 300 mls/hr IVPB Q12H [facility] Last Admin: 01/29/17 04:40 Dose: 300 mls/hr Sodium Chloride (Sodium Chloride 0.9%) 1,000 mls @ 100 mls/hr IV .Q10H [facility] Last Admin: 01/29/17 12:07 Dose: Not Given Ipratropium Hartley (Atrovent Hfa) 2 puff IH RQ6 PRN PRN Reason: Shortness of Breath Levothyroxine Sodium (Synthroid) 88 mcg PO DAILY@0630 [facility] Last Admin: 01/29/17 06:34 Dose: Not Given Metoprolol Tartrate (Lopressor) 25 mg PO Q6H [facility] Last Admin: 01/29/17 14:11 Dose: 25 mg Ondansetron HCl (Zofran Inj) 4 mg IVP Q6H PRN PRN Reason: Nausea/Vomiting Promethazine HCl/Codeine (Phenergan/Codeine Oral Syrup) 5 ml PO Q4 PRN PRN Reason: Cough Last Admin: 01/28/17 03:13 Dose: 5 ml Saccharomyces Boulardii (Florastor) 250 mg PO BID [facility] Last Admin: 01/29/17 10:54 Dose: 250 mg - Labs Labs: 01/29/17 07:26 01/29/17 07:26 PT 13.2 SECONDS (9.7-12.2) H 01/20/17 19:37 INR 1.2 01/20/17 19:37 APTT 32 SECONDS (21-34) 01/20/17 19:37 - Constitutional Appears: Well, No Acute Distress - Head Exam Head Exam: NORMAL INSPECTION - Eye Exam Eye Exam: EOMI - ENT Exam ENT Exam: Mucous Membranes Moist - Respiratory Exam Respiratory Exam: Decreased Breath Sounds (RLL), Rhonchi (LLL) - Cardiovascular Exam Cardiovascular Exam: REGULAR RHYTHM - GI/Abdominal Exam GI & Abdominal Exam: Soft, Normal Bowel Sounds. absent: Bruit, Distended, Rigid , Tenderness - Extremities Exam Extremities Exam: absent: Calf Tenderness, Joint Swelling, Tenderness - Back Exam Back Exam: absent: rash noted - Neurological Exam Neurological Exam: Alert, Awake, Oriented x3 - Psychiatric Exam Psychiatric exam: Normal Affect, Normal Mood - Skin Skin Exam: Dry, Intact, Normal Color, Warm Assessment and Plan - Assessment and Plan (Free Text) Assessment: Leukocytosis * Bronch tomorrow * WBC decreased to 13.2 * Temp 101.3 Diffuse Macular Rash - Resolved Possibly secondary to antibiotics Continue to monitor Respiratory infection ID (Mangia) recommends to hold INH given that AFB is negative and quantiferon indeterminate * Consider Aspergillus/Histo ID (Jv) reccs: Zyvox 600mg IV Q12, Meropenem 1g IV Q8 Pulm (Mike): F/u Bronch results Imaging: * Barium swallow: No aspiration * 01/19 CXR: bibasilar opacities, opacitiy in Right upper lobe, small b/l pleural effusion * 01/21: Chest CT: interstital pneumonitis Vs collagen vascular disease Vs Cryptogenic organizing pneumonia V sarcoid * 01/26: Chest CT: B/l LL opacities Fever PNA 01/29: Tmax 101.3 Patient refuses hypothermic blanket Bacteremia - Resolved All cultures negative Pancreatic Lesion CT Pancreas (01/19): redemonstrated pancreatic mass. GI recs = repeat imaging in 6mo Constipation - RESOLVED Miralax and Colace 100 mg po TID Anemia * H/H Stable History of hypothyroidism Continue home medication: * Synthroid 88mcg PO daily * TSH normal Vertigo - Resolved Possibly secondary to drug-induced (Minocycline HCl - discontinued) 01/02: HIV antibody 1 and 2 screen ordered: Negative CT head: No acute findings Brain MRI: No infarct, Unremarkable Carotid doppler: No significant stenosis Diarrhea - RESOLVED C. diff negative; O/P negative Lower Extremity Edema - Resolved Ankle X-ray: No fracture or arthritis. Mild circumferential soft tissue swelling bilaterally Has decreased substantially Elevated LFTs - RESOLVED 01/20: Abdominal US = hepatic steatosis Vs parenchymal infection/inflammation. No GS or biliary dilation Vtach Patient Had Rapid called on 01/26 for Vtach - was asx Cath on 01/27 - Normal coronaries, normal EF by echo Started on Metoprolol 25 Q6H Echo - EF 65-70 Elevated trop today 0.2050 trending down Prophylactic measure SCDs Ambulating Pepcid 20mg PO BID Florastor 250mg PO BID Lovenox 30mg SC Q12 <Ian Gresham - Last Filed: 01/29/17 19:51> Objective - Vital Signs/Intake and Output Vital Signs (last 24 hours): Temp Pulse Resp BP Pulse Ox 98.5 F 79 20 113/63 100 01/29/17 16:00 01/29/17 16:00 01/29/17 16:00 01/29/17 16:00 01/29/17 16:00 Intake and Output: 01/29/17 01/30/17 18:59 06:59 Intake Total 1850 Balance 1850 - Medications Medications: Current Medications Acetaminophen (Tylenol 325mg Tab) 650 mg PO Q6 PRN PRN Reason: Fever >100.4 F Last Admin: 01/29/17 05:02 Dose: 650 mg Amiodarone HCl (Cordarone) 200 mg PO BID [facility] Last Admin: 01/29/17 18:13 Dose: 200 mg Aspirin (Aspirin Chewable) 81 mg PO DAILY [facility] Last Admin: 01/29/17 10:54 Dose: 81 mg Calcium Carbonate (Tums) 500 mg PO BID [facility] Last Admin: 01/29/17 17:56 Dose: 500 mg Docusate Sodium (Colace) 100 mg PO TID [facility] Last Admin: 01/29/17 17:55 Dose: 100 mg Famotidine (Pepcid) 20 mg PO BID [facility] Last Admin: 01/29/17 17:55 Dose: 20 mg Guaifenesin (Mucinex La) 600 mg PO BID [facility] Last Admin: 01/29/17 17:55 Dose: 600 mg Meropenem 1 gm/ Sodium (Chloride) 100 mls @ 100 mls/hr IVPB Q8 [facility] Last Admin: 01/29/17 14:11 Dose: 100 mls/hr Linezolid (Zyvox 600mg/300ml D5w) 600 mg in 300 mls @ 300 mls/hr IVPB Q12H [facility] Last Admin: 01/29/17 17:56 Dose: 300 mls/hr Sodium Chloride (Sodium Chloride 0.9%) 1,000 mls @ 100 mls/hr IV .Q10H [facility] Last Admin: 01/29/17 12:07 Dose: Not Given Ipratropium Hartley (Atrovent Hfa) 2 puff IH RQ6 PRN PRN Reason: Shortness of Breath Levothyroxine Sodium (Synthroid) 88 mcg PO DAILY@0630 [facility] Last Admin: 01/29/17 06:34 Dose: Not Given Metoprolol Tartrate (Lopressor) 25 mg PO Q6H [facility] Last Admin: 01/29/17 14:11 Dose: 25 mg Ondansetron HCl (Zofran Inj) 4 mg IVP Q6H PRN PRN Reason: Nausea/Vomiting Promethazine HCl/Codeine (Phenergan/Codeine Oral Syrup) 5 ml PO Q4 PRN PRN Reason: Cough Last Admin: 01/28/17 03:13 Dose: 5 ml Saccharomyces Boulardii (Florastor) 250 mg PO BID [facility] Last Admin: 01/29/17 17:55 Dose: 250 mg - Labs Labs: 01/29/17 07:26 01/29/17 07:26 PT 13.2 SECONDS (9.7-12.2) H 01/20/17 19:37 INR 1.2 01/20/17 19:37 APTT 32 SECONDS (21-34) 01/20/17 19:37 Attending/Attestation - Attestation I have personally seen and examined this patient.: Yes I have fully participated in the care of the patient.: Yes I have reviewed all pertinent clinical information, including history, physical exam and plan: Yes Notes (Text): 01/29/17 19:49 Patient was seen and examined on 01/29/17 at 8:30 PM Exam, assessment and plan were thoroughly gone over with the resident. ROS: Some mild SOB overnight Occasional cough productive of small amounts of white material In addition to the above on Exam: Respiratory: Faint inspiratory bibasilar inspiratory crackles Ext: mild nonpitting edema involving the bilateral ankles Assessments: Elevated Troponin: likely secondary to episode of V Tach. Cardiac Cath performed by Dr. Pryor 01/27/17 showed clean coronaries. Therapeutic Lovenox was discontinued Luekocytosis: repeat blood cultures negative, Sputum x 3 negative. Spoke with ID Dr. Calzada who was coverning for Dr. Carias and he recommended Bronchial Washing with cultures. Spoke with Component Assembler Dr. Mckeon (as electronic court recorder Dr. Barrow has not responded to our calls to see this patient) and he had planned to perform bronchoscopy for morning 01/28/17. However, OR schedule did not free up, therefore Dr. Mckeon to schedule the bronchoscopy/bronchial washing for Thursday01/30/17. After speaking with Dr. Carias on 01/27/17 she recommended restarting antibiotics and Zyvox and Meropenem and these were added considering the luekocytosis and fever Hyponatremia: today Na is 134. Monitor for now and follow up 01/30/17 labs. Hx Bacteremia: repeat cultures have been negative to date. Hx of TB Prophylaxis: he was on INH upon admission but currently not on anything. Sputum x [address] Chest 01/26/17 shows no change when compared to 01/20/17 (please see full reports). Sputum culture 01/26/17 showed yeast species but before starting treatment, pending brochoscopy/bronchial washings for 01/30/17 will be better study to determine if yeast is present. 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 Aspirin Hx Constipation: resolved Anemia: stable Hx Hypothyroidism Hx Vertigo: resolved and was likely secondary to the Minocycline that patient was on at the time of admission and once discontinued, this issue resolved and has not recurred Hx Diarrhea: resolved Hx Bilateral Lower Leg Edema: duplex are negative, much improved and now mild non-pitting edema involving the ankles Hx Elevated LFTs: resolved Ian Gresham D.O.
[2017-01-30] MEDS: Linezolid 600 mg in D5W 300 ml 600 MG/300 ML BAG IVPB SCH ×2 (04:31→20:17)
[2017-01-30] MEDS: Meropenem 1 GM in Sodium Chloride 0.9% 100 ML IVPB SCH ×3 (05:14→22:15)
[2017-01-30] MEDS: Sodium Chloride 0.9% 1,000 ML IV SCH ×3 (05:35→16:00)
[2017-01-30] MEDS: Levothyroxine 88 MCG TAB PO SCH (05:36)
--- NOTE | 2017-01-30 06:33 | CP.PCM.PN ---
<Juan Francisco Gonzales - Last Filed: 01/30/17 14:48> Subjective - Date & Time of Evaluation Date of Evaluation: 01/30/17 Time of Evaluation: 06:17 - Subjective Subjective: PGY1 Note for Dr. Gresham HPI: Patient seen and examined at bedside. Doing well. Had a 13 beat run of Vtach last night. Dr. Pryor was made aware. Patient is peeing a lot more last night than usual. States he has had some SOB and Fever. He is going to have a bronch today. Patient was told about the procedure and agrees with the plan. He states that the swelling in his ankles and wrist have gone down. Denies CP, N/V/ D/Chills. Objective - Vital Signs/Intake and Output Vital Signs (last 24 hours): Temp Pulse Resp BP Pulse Ox 98.0 F 78 20 108/65 98 01/30/17 04:36 01/30/17 04:36 01/30/17 04:36 01/30/17 04:36 01/30/17 04:36 Intake and Output: 01/29/17 01/30/17 18:59 06:59 Intake Total 1850 1999 Balance 1850 1999 - Medications Medications: Current Medications Acetaminophen (Tylenol 325mg Tab) 650 mg PO Q6 PRN PRN Reason: Fever >100.4 F Last Admin: 01/30/17 00:13 Dose: 650 mg Amiodarone HCl (Cordarone) 200 mg PO BID [facility] Last Admin: 01/29/17 18:13 Dose: 200 mg Aspirin (Aspirin Chewable) 81 mg PO DAILY [facility] Last Admin: 01/29/17 10:54 Dose: 81 mg Calcium Carbonate (Tums) 500 mg PO BID [facility] Last Admin: 01/29/17 17:56 Dose: 500 mg Docusate Sodium (Colace) 100 mg PO TID [facility] Last Admin: 01/29/17 17:55 Dose: 100 mg Famotidine (Pepcid) 20 mg PO BID [facility] Last Admin: 01/29/17 17:55 Dose: 20 mg Guaifenesin (Mucinex La) 600 mg PO BID [facility] Last Admin: 01/29/17 17:55 Dose: 600 mg Meropenem 1 gm/ Sodium (Chloride) 100 mls @ 100 mls/hr IVPB Q8 [facility] Last Admin: 01/30/17 05:14 Dose: 100 mls/hr Linezolid (Zyvox 600mg/300ml D5w) 600 mg in 300 mls @ 300 mls/hr IVPB Q12H [facility] Last Admin: 01/30/17 04:31 Dose: 300 mls/hr Sodium Chloride (Sodium Chloride 0.9%) 1,000 mls @ 100 mls/hr IV .Q10H [facility] Last Admin: 01/30/17 05:35 Dose: Not Given Ipratropium Hubbard (Atrovent Hfa) 2 puff IH RQ6 PRN PRN Reason: Shortness of Breath Levothyroxine Sodium (Synthroid) 88 mcg PO DAILY@0630 [facility] Last Admin: 01/30/17 05:36 Dose: Not Given Metoprolol Tartrate (Lopressor) 25 mg PO Q6H [facility] Last Admin: 01/30/17 03:00 Dose: Not Given Ondansetron HCl (Zofran Inj) 4 mg IVP Q6H PRN PRN Reason: Nausea/Vomiting Promethazine HCl/Codeine (Phenergan/Codeine Oral Syrup) 5 ml PO Q4 PRN PRN Reason: Cough Last Admin: 01/28/17 03:13 Dose: 5 ml Saccharomyces Boulardii (Florastor) 250 mg PO BID [facility] Last Admin: 01/29/17 17:55 Dose: 250 mg - Labs Labs: 01/29/17 07:26 01/29/17 07:26 PT 13.2 SECONDS (9.7-12.2) H 01/20/17 19:37 INR 1.2 01/20/17 19:37 APTT 32 SECONDS (21-34) 01/20/17 19:37 - Constitutional Appears: Well, Non-toxic, No Acute Distress - Head Exam Head Exam: ATRAUMATIC, NORMAL INSPECTION, NORMOCEPHALIC - Eye Exam Eye Exam: EOMI - ENT Exam ENT Exam: Mucous Membranes Moist - Neck Exam Neck Exam: Full ROM - Respiratory Exam Respiratory Exam: Decreased Breath Sounds (b/l LL) - Cardiovascular Exam Cardiovascular Exam: REGULAR RHYTHM - GI/Abdominal Exam GI & Abdominal Exam: Soft, Normal Bowel Sounds. absent: Distended, Tenderness - Extremities Exam Extremities Exam: Joint Swelling (non pitting edema of the R. ankle) - Neurological Exam Neurological Exam: Alert, Awake, Oriented x3 - Psychiatric Exam Psychiatric exam: Normal Affect, Suicidal Ideation - Skin Skin Exam: Abrasion, Dry, Intact, Normal Color, Warm Assessment and Plan - Assessment and Plan (Free Text) Assessment: Leukocytosis * Bronch tomorrow * WBC increased 15.6 with 7% bands * Temp 98 * Repeat blood cultures negative * Sputum has grown yeast * Urine culture negative * ID (Jv) reccs: Zyvox 600mg IV Q12, Meropenem 1g IV Q8 Respiratory infection ID (Mangia) recommends to hold INH given that AFB is negative and quantiferon indeterminate * Consider Aspergillus/Histo ID (Jv) reccs: Zyvox 600mg IV Q12, Meropenem 1g IV Q8 Pulm (Mike): F/u Bronch results Imaging: * Barium swallow: No aspiration * 01/19 CXR: bibasilar opacities, opacitiy in Right upper lobe, small b/l pleural effusion * 01/21: Chest CT: interstital pneumonitis Vs collagen vascular disease Vs Cryptogenic organizing pneumonia V sarcoid * 01/26: Chest CT: B/l LL opacities Fever T= 98 Patient refuses hypothermic blanket Anemia * H/H = 8.9/27.2 History of hypothyroidism Continue home medication: * Synthroid 88mcg PO daily * TSH normal Vtach Patient Had Rapid called on 01/26 for Vtach - was asx Cath on 01/27 - Normal coronaries, normal EF by echo Started on Metoprolol 25 Q6H Echo - EF 65-70 Elevated trop today 0.2050 trending down Stopped therapeutic Lovenox 01/30 Another episode of Asx Vtach (13 beats), Cards (Voudouris) started Cordarone 200mg PO BID Pancreatic Lesion CT Pancreas (01/19): redemonstrated pancreatic mass. GI recs = repeat imaging in 6mo Hx of TB PPX * On INH at admission, no longer on anything * Sputum x 3 negative * Repeat CT Chest 01/26/17 shows no change when compared to 01/20/17 * Sputum culture 01/26/17 showed yeast species waiting to start treatment until confirmed with Bronch Superficial Throbophlebitis * Right Cephalic Vein Thrombosis as per UE Duplex * Aspirin 81mg PO QD Diffuse Macular Rash - RESOLVED Possibly secondary to antibiotics Continue to monitor Elevated LFTs - RESOLVED 01/20: Abdominal US = hepatic steatosis Vs parenchymal infection/inflammation. No GS or biliary dilation Lower Extremity Edema - RESOLVED Ankle X-ray: No fracture or arthritis. Mild circumferential soft tissue swelling bilaterally duplex are negative Has decreased substantially Nonpitting edema of the ankles still present Vertigo - RESOLVED Possibly secondary to drug-induced (Minocycline HCl - discontinued) 01/02: HIV antibody 1 and 2 screen ordered: Negative CT head: No acute findings Brain MRI: No infarct, Unremarkable Carotid doppler: No significant stenosis Diarrhea - RESOLVED C. diff negative; O/P negative Constipation - RESOLVED Bacteremia - RESOLVED All cultures negative Constipation - RESOLVED Miralax and Colace 100 mg po TID Hyponatremia - RESOLVED Na = 132 Monitor Prophylactic measure SCDs Ambulating Pepcid 20mg PO BID Florastor 250mg PO BID Lovenox 30mg SC Q12 <Ian Gresham - Last Filed: 01/30/17 19:24> Objective - Vital Signs/Intake and Output Vital Signs (last 24 hours): Temp Pulse Resp BP Pulse Ox 99.9 F H 98 H 33 H 101/61 100 01/30/17 19:00 01/30/17 19:00 01/30/17 19:00 01/30/17 19:00 01/30/17 19:00 Intake and Output: 01/30/17 01/31/17 18:59 06:59 Intake Total 800 Balance 800 - Medications Medications: Current Medications Acetaminophen (Tylenol 325mg Tab) 650 mg PO Q6 PRN PRN Reason: Fever >100.4 F Last Admin: 01/30/17 00:13 Dose: 650 mg Amiodarone HCl (Cordarone) 200 mg PO BID [facility] Last Admin: 01/30/17 14:53 Dose: Not Given Aspirin (Aspirin Chewable) 81 mg PO DAILY [facility] Last Admin: 01/30/17 14:52 Dose: Not Given Calcium Carbonate (Tums) 500 mg PO BID [facility] Last Admin: 01/30/17 14:54 Dose: Not Given Docusate Sodium (Colace) 100 mg PO TID [facility] Last Admin: 01/30/17 14:53 Dose: Not Given Famotidine (Pepcid) 20 mg PO BID [facility] Last Admin: 01/30/17 14:54 Dose: Not Given Guaifenesin (Mucinex La) 600 mg PO BID [facility] Last Admin: 01/30/17 14:53 Dose: Not Given Hydromorphone HCl (Dilaudid) 0.5 mg IVP Q15M PRN PRN Reason: Pain, severe (8-10) Meropenem 1 gm/ Sodium (Chloride) 100 mls @ 100 mls/hr IVPB Q8 [facility] Last Admin: 01/30/17 13:30 Dose: 100 mls/hr Linezolid (Zyvox 600mg/300ml D5w) 600 mg in 300 mls @ 300 mls/hr IVPB Q12H [facility] Last Admin: 01/30/17 04:31 Dose: 300 mls/hr Ipratropium Hubbard (Atrovent Hfa) 2 puff IH RQ6 PRN PRN Reason: Shortness of Breath Levothyroxine Sodium (Synthroid) 88 mcg PO DAILY@0630 [facility] Last Admin: 01/30/17 05:36 Dose: Not Given Metoprolol Tartrate (Lopressor) 25 mg PO Q6H [facility] Last Admin: 01/30/17 14:53 Dose: Not Given Ondansetron HCl (Zofran Inj) 4 mg IVP Q6H PRN PRN Reason: Nausea/Vomiting Promethazine HCl/Codeine (Phenergan/Codeine Oral Syrup) 5 ml PO Q4 PRN PRN Reason: Cough Last Admin: 01/28/17 03:13 Dose: 5 ml Saccharomyces Boulardii (Florastor) 250 mg PO BID [facility] Last Admin: 01/30/17 14:53 Dose: Not Given - Labs Labs: 01/30/17 11:11 01/30/17 11:11 PT 13.2 SECONDS (9.7-12.2) H 01/20/17 19:37 INR 1.2 01/20/17 19:37 APTT 32 SECONDS (21-34) 01/20/17 19:37 Attending/Attestation - Attestation I have personally seen and examined this patient.: Yes I have fully participated in the care of the patient.: Yes I have reviewed all pertinent clinical information, including history, physical exam and plan: Yes Notes (Text): 01/30/17 19:23 Patient was seen and examined on 01/30/17 at 10:30 AM Exam, assessment and plan were thoroughly gone over with the resident. ROS: Some mild SOB overnight Occasional cough productive of small amounts of white material In addition to the above on Exam: Respiratory: Faint inspiratory bibasilar inspiratory crackles Ext: mild nonpitting edema involving the bilateral ankles Assessments: Elevated Troponin: likely secondary to episode of V Tach. Cardiac Cath performed by Dr. Pryor 01/27/17 showed clean coronaries. Therapeutic Lovenox was discontinued Luekocytosis: repeat blood cultures negative, Sputum x 3 negative. Spoke with ID Dr. Calzada who was coverning for Dr. Carias and he recommended Bronchial Washing with cultures. Spoke with Crack [employer] Person Dr. Mckeon (as software configuration specialist Dr. Barrow has not responded to our calls to see this patient) and he had planned to perform bronchoscopy for morning 01/28/17. However, OR schedule did not free up, therefore Dr. Mckeon to schedule the bronchoscopy/bronchial washing for Thursday01/30/17. After speaking with Dr. Carias on 01/27/17 she recommended restarting antibiotics and Zyvox and Meropenem and these were added considering the luekocytosis and fever, both of which still persist. Hyponatremia: resolved. Monitor for now and follow up 01/31/17 labs. Hx Bacteremia: repeat cultures have been negative to date. Hx of TB Prophylaxis: he was on INH upon admission but currently not on anything. Sputum x [address] Chest 01/26/17 shows no change when compared to 01/20/17 (please see full reports). Sputum culture 01/26/17 showed yeast species but before starting treatment, pending brochoscopy/bronchial washings for 01/30/17 will be better study to determine if yeast is present. 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 Aspirin Hx Constipation: resolved Anemia: stable Hx Hypothyroidism Hx Vertigo: resolved and was likely secondary to the Minocycline that patient was on at the time of admission and once discontinued, this issue resolved and has not recurred Hx Diarrhea: resolved Hx Bilateral Lower Leg Edema: duplex are negative, much improved and now mild non-pitting edema involving the ankles Hx Elevated LFTs: resolved Ian Gresham D.O.
[2017-01-30 11:18] LABS: BASO # 0.1 K/uL (0.0-0.2); BASO % 0.7 % (0.0-2.0); EOS # 0.4 K/uL (0.0-0.7); EOS % 2.4 % (0.0-4.0); HEMATOCRIT 27.2 % (35.0-51.0); LYMPH # 1.3 K/uL (1.0-4.3); LYMPH % 8.4 % (20.0-40.0); MEAN CELL VOLUME 83.1 fL (80.0-94.0); MEAN CORPUSCULAR HEMOGLOBIN 27.2 pg (27.0-31.0); MEAN CORPUSCULAR HGB CONC 32.8 g/dL (33.0-37.0); MEAN PLATELET VOLUME 8.3 fL (7.2-11.7); MONO # 0.3 K/uL (0.0-0.8); PLATELET COUNT 422 K/uL (130-400); WHITE BLOOD COUNT 15.6 K/uL (4.8-10.8)
[2017-01-30 11:25] LABS: CHLORIDE 103 mmol/L (98-107)
[2017-01-30 11:26] LABS: SODIUM 132 mmol/L (132-148)
[2017-01-30 11:28] LABS: BILIRUBIN,TOTAL 0.4 mg/dL (0.2-1.3); CARBON DIOXIDE 25 mmol/L (22-30); GFR AFRICAN-AMERICAN > 60
[2017-01-30 11:29] LABS: ALB/GLOB RATIO 0.5 (1.0-2.1); ALKALINE PHOSPHATASE 103 U/L (38-126); ALT/SGPT 43 U/L (21-72); AST/SGOT 39 U/L (17-59); BLOOD UREA NITROGEN 7 mg/dL (9-20); GLUCOSE,RANDOM 83 mg/dL (75-110); TOTAL PROTEIN 7.3 g/dL (6.3-8.3)
[2017-01-30 11:41] LABS: EOSINOPHIL 1 % (0-4); METAMYELOCYTE 1 % (0-0); NEUTROPHIL 78 % (50-75); TOTAL CELLS COUNTED 100
[2017-01-30] MEDS: Saccharomyces Boulardi 250 mg Cap PO SCH ×2 (14:53→20:19)
[2017-01-30] MEDS: guaiFENesin 600 mg ER Tab PO SCH ×2 (14:53→20:20)
[2017-01-30] MEDS: Calcium Carbonate 500 mg Chewable Antacid Tab PO SCH ×2 (14:54→20:19)
[2017-01-30] MEDS ORDERED: EPINEPHrine 1 mg/ml (1:1000) Inj ONE (16:45)
[2017-01-30] MEDS ORDERED: Lidocaine Hydrochloride 0 ML INJ ONE (16:46)
[2017-01-30] MEDS ORDERED: Lidocaine 1% Inj (20ml) ONE (16:46)
[2017-01-30] MEDS ORDERED: Lactated Ringer's 1,000 ML IV ONE (17:20)
[2017-01-30] MEDS ORDERED: Propofol 10 mg/ml Inj (20 ML) ONE ×2 (17:22→17:37)
[2017-01-30] MEDS ORDERED: Midazolam 2 MG/2 ML VIAL ONE (17:22)
[2017-01-30] MEDS ORDERED: Phenylephrine 10 mg/ml Inj ONE (17:42)
[2017-01-30] MEDS ORDERED: HYDROmorphone 0.5 mg/0.5 ml ISec IVP PRN (17:47)
[2017-01-30] MEDS ORDERED: Albuterol-Ipratrop 3 mg / 0.5 (3 ml) UD INH STA (18:14)
[2017-01-31] MEDS: Linezolid 600 mg in D5W 300 ml 600 MG/300 ML BAG IVPB SCH ×2 (04:22→16:32)
[2017-01-31] MEDS: Levothyroxine 88 MCG TAB PO SCH (06:24)
[2017-01-31] MEDS: Meropenem 1 GM in Sodium Chloride 0.9% 100 ML IVPB SCH ×3 (06:28→21:28)
--- NOTE | 2017-01-31 06:28 | RAD ---
HISTORY: s/p bronchoscopy COMPARISON: Comparison is made to 01/19/2017 FINDINGS: LUNGS: Persistent focal heterogeneous opacity at the mid right lung although appears smaller compared to the previous exam. Persistent bilateral lower lobe opacities likely atelectasis. PLEURA: Bilateral pleural effusions CARDIOVASCULAR: Normal. OSSEOUS STRUCTURES: No significant abnormalities. VISUALIZED UPPER ABDOMEN: Normal. OTHER FINDINGS: None. IMPRESSION: Small opacities at the mid right lung appears smaller compared to soft previous exam. Bilateral pleural effusions associated with bibasilar opacities likely atelectasis.
[2017-01-31] MEDS: guaiFENesin 600 mg ER Tab PO SCH ×2 (09:54→18:05)
[2017-01-31] MEDS: Calcium Carbonate 500 mg Chewable Antacid Tab PO SCH ×2 (09:54→18:05)
[2017-01-31] MEDS: Saccharomyces Boulardi 250 mg Cap PO SCH ×2 (09:54→18:05)
[2017-01-31 11:03] LABS: BASO % 0.3 % (0.0-2.0); EOS # 0.3 K/uL (0.0-0.7); EOS % 1.9 % (0.0-4.0); HEMATOCRIT 29.2 % (35.0-51.0); LYMPH # 1.4 K/uL (1.0-4.3); LYMPH % 8.5 % (20.0-40.0); MEAN CELL VOLUME 83.9 fL (80.0-94.0); MEAN CORPUSCULAR HEMOGLOBIN 27.4 pg (27.0-31.0); MEAN CORPUSCULAR HGB CONC 32.7 g/dL (33.0-37.0); MEAN PLATELET VOLUME 8.1 fL (7.2-11.7); MONO # 0.3 K/uL (0.0-0.8); MONO % 1.6 % (0.0-10.0); PLATELET COUNT 431 K/uL (130-400); RED CELL DISTRIBUTION WIDTH 20.3 % (11.5-14.5); WHITE BLOOD COUNT 16.1 K/uL (4.8-10.8)
[2017-01-31 11:14] LABS: CHLORIDE 102 mmol/L (98-107); POTASSIUM 3.9 mmol/L (3.6-5.2); SODIUM 134 mmol/L (132-148)
[2017-01-31 11:16] LABS: BILIRUBIN,TOTAL 0.3 mg/dL (0.2-1.3); CARBON DIOXIDE 23 mmol/L (22-30); GFR AFRICAN-AMERICAN > 60
[2017-01-31 11:17] LABS: ALB/GLOB RATIO 0.5 (1.0-2.1); ALKALINE PHOSPHATASE 111 U/L (38-126); ALT/SGPT 38 U/L (21-72); AST/SGOT 43 U/L (17-59); BLOOD UREA NITROGEN 10 mg/dL (9-20); CALCIUM 7.6 mg/dl (8.6-10.4); GLUCOSE,RANDOM 141 mg/dL (75-110); TOTAL PROTEIN 7.5 g/dL (6.3-8.3)
[2017-01-31 11:26] LABS: EOSINOPHIL 1 % (0-4); NEUTROPHIL 87 % (50-75); TOTAL CELLS COUNTED 100
[2017-01-31 11:28] LABS: LARGE PLATELETS PRESENT
[2017-01-31 11:31] LABS: GIANT PLATELETS PRESENT
--- NOTE | 2017-01-31 11:36 | CP.PCM.PN ---
<Rosalia Vallejo - Last Filed: 01/31/17 11:35> Subjective - Date & Time of Evaluation Date of Evaluation: 01/31/17 Time of Evaluation: 09:00 - Subjective Subjective: Resident Progress Note for Dr. Gresham Patient seen and examined at bedside. Patient reports to have fever of 101.3, stating that is what usually happens at night for him. Objective - Vital Signs/Intake and Output Vital Signs (last 24 hours): Temp Pulse Resp BP Pulse Ox 98.5 F 78 17 99/59 L 99 01/31/17 07:30 01/31/17 07:30 01/31/17 07:30 01/31/17 09:56 01/31/17 07:30 Intake and Output: 01/31/17 01/31/17 06:59 18:59 Intake Total 1870 Balance 1870 - Medications Medications: Current Medications Acetaminophen (Tylenol 325mg Tab) 650 mg PO Q6 PRN PRN Reason: Fever >100.4 F Last Admin: 01/30/17 22:14 Dose: 650 mg Amiodarone HCl (Cordarone) 200 mg PO BID [facility] Last Admin: 01/31/17 11:18 Dose: 200 mg Aspirin (Aspirin Chewable) 81 mg PO DAILY [facility] Last Admin: 01/31/17 09:54 Dose: 81 mg Calcium Carbonate (Tums) 500 mg PO BID [facility] Last Admin: 01/31/17 09:54 Dose: 500 mg Docusate Sodium (Colace) 100 mg PO TID [facility] Last Admin: 01/31/17 09:54 Dose: 100 mg Famotidine (Pepcid) 20 mg PO BID [facility] Last Admin: 01/31/17 09:55 Dose: 20 mg Guaifenesin (Mucinex La) 600 mg PO BID [facility] Last Admin: 01/31/17 09:54 Dose: 600 mg Meropenem 1 gm/ Sodium (Chloride) 100 mls @ 100 mls/hr IVPB Q8 [facility] Last Admin: 01/31/17 06:28 Dose: 100 mls/hr Linezolid (Zyvox 600mg/300ml D5w) 600 mg in 300 mls @ 300 mls/hr IVPB Q12H [facility] Last Admin: 01/31/17 04:22 Dose: 300 mls/hr Ipratropium Plover (Atrovent Hfa) 2 puff IH RQ6 PRN PRN Reason: Shortness of Breath Levothyroxine Sodium (Synthroid) 88 mcg PO DAILY@0630 [facility] Last Admin: 01/31/17 06:24 Dose: 88 mcg Metoprolol Tartrate (Lopressor) 25 mg PO Q6H [facility] Last Admin: 01/31/17 09:56 Dose: Not Given Ondansetron HCl (Zofran Inj) 4 mg IVP Q6H PRN PRN Reason: Nausea/Vomiting Promethazine HCl/Codeine (Phenergan/Codeine Oral Syrup) 5 ml PO Q4 PRN PRN Reason: Cough Last Admin: 01/28/17 03:13 Dose: 5 ml Saccharomyces Boulardii (Florastor) 250 mg PO BID [facility] Last Admin: 01/31/17 09:54 Dose: 250 mg - Labs Labs: 01/31/17 10:58 01/31/17 10:58 PT 13.2 SECONDS (9.7-12.2) H 01/20/17 19:37 INR 1.2 01/20/17 19:37 APTT 32 SECONDS (21-34) 01/20/17 19:37 <Ian Gresham - Last Filed: 01/31/17 19:28> Objective - Vital Signs/Intake and Output Vital Signs (last 24 hours): Temp Pulse Resp BP Pulse Ox 99.1 F 80 20 112/67 99 01/31/17 18:06 01/31/17 18:06 01/31/17 16:27 01/31/17 18:06 01/31/17 16:27 Intake and Output: 01/31/17 02/01/17 18:59 06:59 Intake Total 1100 Balance 1100 - Medications Medications: Current Medications Acetaminophen (Tylenol 325mg Tab) 650 mg PO Q6 PRN PRN Reason: Fever >100.4 F Last Admin: 01/31/17 16:31 Dose: 650 mg Amiodarone HCl (Cordarone) 200 mg PO BID [facility] Last Admin: 01/31/17 18:05 Dose: 200 mg Aspirin (Aspirin Chewable) 81 mg PO DAILY [facility] Last Admin: 01/31/17 09:54 Dose: 81 mg Calcium Carbonate (Tums) 500 mg PO BID [facility] Last Admin: 01/31/17 18:05 Dose: 500 mg Docusate Sodium (Colace) 100 mg PO TID [facility] Last Admin: 01/31/17 18:05 Dose: 100 mg Famotidine (Pepcid) 20 mg PO BID [facility] Last Admin: 01/31/17 09:55 Dose: 20 mg Guaifenesin (Mucinex La) 600 mg PO BID [facility] Last Admin: 01/31/17 18:05 Dose: 600 mg Meropenem 1 gm/ Sodium (Chloride) 100 mls @ 100 mls/hr IVPB Q8 [facility] Last Admin: 01/31/17 13:51 Dose: 100 mls/hr Linezolid (Zyvox 600mg/300ml D5w) 600 mg in 300 mls @ 300 mls/hr IVPB Q12H [facility] Last Admin: 01/31/17 16:32 Dose: 300 mls/hr Ipratropium Plover (Atrovent Hfa) 2 puff IH RQ6 PRN PRN Reason: Shortness of Breath Levothyroxine Sodium (Synthroid) 88 mcg PO DAILY@0630 [facility] Last Admin: 01/31/17 06:24 Dose: 88 mcg Metoprolol Tartrate (Lopressor) 25 mg PO Q6H [facility] Last Admin: 01/31/17 14:00 Dose: 25 mg Ondansetron HCl (Zofran Inj) 4 mg IVP Q6H PRN PRN Reason: Nausea/Vomiting Promethazine HCl/Codeine (Phenergan/Codeine Oral Syrup) 5 ml PO Q4 PRN PRN Reason: Cough Last Admin: 01/28/17 03:13 Dose: 5 ml Saccharomyces Boulardii (Florastor) 250 mg PO BID [facility] Last Admin: 01/31/17 18:05 Dose: 250 mg - Labs Labs: 01/31/17 10:58 01/31/17 10:58 PT 13.2 SECONDS (9.7-12.2) H 01/20/17 19:37 INR 1.2 01/20/17 19:37 APTT 32 SECONDS (21-34) 01/20/17 19:37 Attending/Attestation - Attestation I have personally seen and examined this patient.: Yes I have fully participated in the care of the patient.: Yes I have reviewed all pertinent clinical information, including history, physical exam and plan: Yes Notes (Text): 01/31/17 19:21 Patient was seen and examined on 01/31/17 at 10:45 AM Exam, assessment and plan were thoroughly gone over with the resident. ROS: Some mild SOB overnight Occasional cough productive of small amounts of white material Subjective fever at night with sweats Exam: General: AAOx3, NAD HEENT: NCA, EOMI, PERRLA, NO cervical/supraclavicular/submandibular lymphadenopathy, NO pharyngeal erythema/exudate, Mucous Membranes are moist, Nasal Turbinates are nonedematous/nonerythematous Cardio: NS1 and NS2, NO M/R/G Respiratory: Faint inspiratory bibasilar inspiratory crackles GI: BSx4, Soft, NT, ND, NO HSM, NO guarding/rebound tenderness Ext: mild nonpitting edema involving the bilateral ankles, Pulses are strong and equal, Capillary Refill is 2 seconds Neuro: CN II through XII are grossly intact Assessments: Elevated Troponin: likely secondary to episode of V Tach. Cardiac Cath performed by Dr. Pryor 01/27/17 showed clean coronaries. Therapeutic Lovenox was discontinued. F/U Troponin for morning 02/01/17 Luekocytosis: repeat blood cultures negative, Sputum x 3 negative. Spoke with ID Dr. Calzada who was coverning for Dr. Carias and he recommended Bronchial Washing with cultures. Spoke with Rumper Dr. 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 Barrow has not responded to our calls to see this patient) and he had planned to perform bronchoscopy for morning 01/28/17. However, OR schedule did not free up, therefore Dr. Mckeon to schedule the bronchoscopy/bronchial washing for Thursday01/30/17 and this was performed: F/U Bronchial Mycobacteria Culture/ Gram Stain/Fungus Culture/Smear. After speaking with Dr. Carias on 01/27/17 she recommended restarting antibiotics and Zyvox and Meropenem and these were added considering the luekocytosis and fever, both of which still persist. Hyponatremia: resolved. Monitor for now and follow up 02/01/17 labs. Hx Bacteremia: repeat cultures have been negative to date. Hx of TB Prophylaxis: he was on INH upon admission but currently not on anything. Sputum x [address] Chest 01/26/17 shows no change when compared to 01/20/17 (please see full reports). Sputum culture 01/26/17 showed yeast species but before starting treatment, pending brochoscopy/bronchial washings cultures. 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 Aspirin Hx Constipation: resolved Anemia: stable Hx Hypothyroidism: levothyroxine Hx Vertigo: resolved and was likely secondary to the Minocycline that patient was on at the time of admission and once discontinued, this issue resolved and has not recurred Hx Diarrhea: resolved Hx Bilateral Lower Leg Edema: duplex are negative, much improved and now mild non-pitting edema involving the ankles Hx Elevated LFTs: resolved Ian Gresham D.O.
--- NOTE | 2017-01-31 15:08 | PROCN ---
DATE: PROCEDURE: Fiberoptic bronchoscopy with biopsy. SURGEON: Fei Mckeon MD INDICATIONS: Bilateral lung infiltrate and persistent fever. DESCRIPTION OF PROCEDURE: After obtaining consent from the patient explaining the patient's risks and benefits, which he understood, the procedure was done under sedation by the anesthesiologist. The nose and throat was prepared with lidocaine. First a bronchoscope was passed through right nostril into throat. There was normal movement of vocal cord, after instilling lidocaine the bronchoscope was advanced into trachea. The trachea appeared normal. No endobronchial lesions seen. No purulent secretions noted. Further, the bronchoscope was passed into the right side, which appeared normal. Later, the bronchoscope was pulled back and passed on the left side, which appeared normal. Under fluoroscopy, brushing and biopsy was done from the left lower lobe and bronchoalveolar lavage was done. The patient tolerated the procedure well. No complications. Fei Mckeon MD
[2017-02-01] MEDS: Linezolid 600 mg in D5W 300 ml 600 MG/300 ML BAG IVPB SCH ×2 (03:10→17:54)
[2017-02-01] MEDS: Meropenem 1 GM in Sodium Chloride 0.9% 100 ML IVPB SCH ×3 (06:15→21:16)
[2017-02-01] MEDS: Levothyroxine 88 MCG TAB PO SCH (06:41)
[2017-02-01 07:42] LABS: BASO # 0.1 K/uL (0.0-0.2); BASO % 0.3 % (0.0-2.0); EOS # 0.4 K/uL (0.0-0.7); EOS % 2.6 % (0.0-4.0); HEMATOCRIT 28.5 % (35.0-51.0); LYMPH # 2.2 K/uL (1.0-4.3); LYMPH % 12.5 % (20.0-40.0); MEAN CORPUSCULAR HEMOGLOBIN 27.4 pg (27.0-31.0); MEAN PLATELET VOLUME 7.8 fL (7.2-11.7); MONO # 0.4 K/uL (0.0-0.8); MONO % 2.4 % (0.0-10.0); NRBC % 0.1 % (0.0-2.0); RED CELL DISTRIBUTION WIDTH 20.1 % (11.5-14.5); WHITE BLOOD COUNT 17.5 K/uL (4.8-10.8)
[2017-02-01 07:48] LABS: ALB/GLOB RATIO 0.5 (1.0-2.1); ALKALINE PHOSPHATASE 102 U/L (38-126); ALT/SGPT 40 U/L (21-72); AST/SGOT 47 U/L (17-59); BILIRUBIN,TOTAL 0.2 mg/dL (0.2-1.3); BLOOD UREA NITROGEN 11 mg/dL (9-20); CALCIUM 7.6 mg/dl (8.6-10.4); CARBON DIOXIDE 25 mmol/L (22-30); CHLORIDE 101 mmol/L (98-107); GFR AFRICAN-AMERICAN > 60; GLUCOSE,RANDOM 85 mg/dL (75-110); POTASSIUM 3.9 mmol/L (3.6-5.2); SODIUM 132 mmol/L (132-148); TOTAL PROTEIN 7.2 g/dL (6.3-8.3)
[2017-02-01] MEDS: guaiFENesin 600 mg ER Tab PO SCH ×2 (09:17→17:54)
[2017-02-01] MEDS: Saccharomyces Boulardi 250 mg Cap PO SCH ×2 (09:17→17:54)
--- NOTE | 2017-02-01 12:33 | RAD ---
PROCEDURE: Intraoperative Fluoroscopy. HISTORY: B/L LUNG PNEUMONIA FINDINGS: Fluoroscopic assistance was provided for bronchoscopy. Please refer time (continuous mode) utilized during the procedure: 26.5 seconds.
--- NOTE | 2017-02-01 12:54 | CP.PCM.PN ---
<Rosalia Vallejo - Last Filed: 02/01/17 14:18> Subjective - Date & Time of Evaluation Date of Evaluation: 02/01/17 Time of Evaluation: 09:10 - Subjective Subjective: Resident Progress Note for Dr. Gresham Patient seen and examined at bedside. Patient had a fever of 100.8F last night and 101.4F yesterday afternoon. Patient reports he has been actively ambulating in the lynch. Patient is aware of pending culture results from bronchial washings. He denies having headache, dizziness, chest pain, nausea, vomiting, or diarrhea. Objective - Vital Signs/Intake and Output Vital Signs (last 24 hours): Temp Pulse Resp BP Pulse Ox 98.1 F 65 20 107/63 96 02/01/17 07:45 02/01/17 08:41 02/01/17 07:45 02/01/17 09:17 02/01/17 07:45 - Medications Medications: Current Medications Acetaminophen (Tylenol 325mg Tab) 650 mg PO Q6 PRN PRN Reason: Fever >100.4 F Last Admin: 02/01/17 03:10 Dose: 650 mg Amiodarone HCl (Cordarone) 200 mg PO BID [facility] Last Admin: 02/01/17 09:18 Dose: 200 mg Aspirin (Aspirin Chewable) 81 mg PO DAILY [facility] Last Admin: 02/01/17 09:18 Dose: 81 mg Calcium Carbonate (Tums) 500 mg PO BID [facility] Last Admin: 01/31/17 18:05 Dose: 500 mg Docusate Sodium (Colace) 100 mg PO TID [facility] Last Admin: 02/01/17 09:17 Dose: 100 mg Famotidine (Pepcid) 20 mg PO BID [facility] Last Admin: 02/01/17 09:18 Dose: 20 mg Guaifenesin (Mucinex La) 600 mg PO BID [facility] Last Admin: 02/01/17 09:17 Dose: 600 mg Meropenem 1 gm/ Sodium (Chloride) 100 mls @ 100 mls/hr IVPB Q8 [facility] Last Admin: 02/01/17 06:15 Dose: 100 mls/hr Linezolid (Zyvox 600mg/300ml D5w) 600 mg in 300 mls @ 300 mls/hr IVPB Q12H [facility] Last Admin: 02/01/17 03:10 Dose: 300 mls/hr Ipratropium [place] (Atrovent Hfa) 2 puff IH RQ6 PRN PRN Reason: Shortness of Breath Levothyroxine Sodium (Synthroid) 88 mcg PO DAILY@0630 [facility] Last Admin: 02/01/17 06:41 Dose: 88 mcg Metoprolol Tartrate (Lopressor) 25 mg PO Q6H [facility] Last Admin: 02/01/17 09:17 Dose: 25 mg Ondansetron HCl (Zofran Inj) 4 mg IVP Q6H PRN PRN Reason: Nausea/Vomiting Promethazine HCl/Codeine (Phenergan/Codeine Oral Syrup) 5 ml PO Q4 PRN PRN Reason: Cough Last Admin: 01/28/17 03:13 Dose: 5 ml Saccharomyces Boulardii (Florastor) 250 mg PO BID [facility] Last Admin: 02/01/17 09:17 Dose: 250 mg - Labs Labs: 02/01/17 07:15 02/01/17 07:18 PT 13.2 SECONDS (9.7-12.2) H 01/20/17 19:37 INR 1.2 01/20/17 19:37 APTT 32 SECONDS (21-34) 01/20/17 19:37 - Constitutional Appears: Non-toxic, No Acute Distress - Head Exam Head Exam: ATRAUMATIC, NORMAL INSPECTION - Eye Exam Eye Exam: Normal appearance, PERRL - ENT Exam ENT Exam: Mucous Membranes Moist - Neck Exam Neck Exam: Normal Inspection - Respiratory Exam Respiratory Exam: NORMAL BREATHING PATTERN. absent: Respiratory Distress Additional comments: bilateral crackles appreciated at the lung base - Cardiovascular Exam Cardiovascular Exam: REGULAR RHYTHM, +S1, +S2. absent: Murmur - GI/Abdominal Exam GI & Abdominal Exam: Soft, Normal Bowel Sounds. absent: Tenderness - Extremities Exam Extremities Exam: Normal Capillary Refill - Neurological Exam Neurological Exam: Alert, Awake, CN II-XII Intact, Oriented x3 - Psychiatric Exam Psychiatric exam: Normal Affect, Normal Mood - Skin Skin Exam: Normal Color, Warm <Gresham,Ian J - Last Filed: 02/01/17 20:24> Objective - Vital Signs/Intake and Output Vital Signs (last 24 hours): Temp Pulse Resp BP Pulse Ox 99 F 90 20 122/74 99 02/01/17 16:58 02/01/17 15:03 02/01/17 15:03 02/01/17 15:46 02/01/17 15:03 - Medications Medications: Current Medications Acetaminophen (Tylenol 325mg Tab) 650 mg PO Q6 PRN PRN Reason: Fever >100.4 F Last Admin: 02/01/17 15:58 Dose: 650 mg Amiodarone HCl (Cordarone) 200 mg PO BID [facility] Last Admin: 02/01/17 17:54 Dose: 200 mg Aspirin (Aspirin Chewable) 81 mg PO DAILY [facility] Last Admin: 02/01/17 09:18 Dose: 81 mg Calcium Carbonate (Tums) 500 mg PO BID [facility] Last Admin: 02/01/17 17:54 Dose: 500 mg Docusate Sodium (Colace) 100 mg PO TID [facility] Last Admin: 02/01/17 17:54 Dose: 100 mg Famotidine (Pepcid) 20 mg PO BID [facility] Last Admin: 02/01/17 17:54 Dose: 20 mg Guaifenesin (Mucinex La) 600 mg PO BID [facility] Last Admin: 02/01/17 17:54 Dose: 600 mg Meropenem 1 gm/ Sodium (Chloride) 100 mls @ 100 mls/hr IVPB Q8 [facility] Last Admin: 02/01/17 15:12 Dose: 100 mls/hr Linezolid (Zyvox 600mg/300ml D5w) 600 mg in 300 mls @ 300 mls/hr IVPB Q12H [facility] Last Admin: 02/01/17 17:54 Dose: 300 mls/hr Micafungin Sodium 100 mg/ (Sodium Chloride) 100 mls @ 100 mls/hr IV Q24H [facility] Last Admin: 02/01/17 13:51 Dose: 100 mls/hr Ipratropium [place] (Atrovent Hfa) 2 puff IH RQ6 PRN PRN Reason: Shortness of Breath Levothyroxine Sodium (Synthroid) 88 mcg PO DAILY@0630 [facility] Last Admin: 02/01/17 06:41 Dose: 88 mcg Metoprolol Tartrate (Lopressor) 25 mg PO Q6H [facility] Last Admin: 02/01/17 15:46 Dose: 25 mg Ondansetron HCl (Zofran Inj) 4 mg IVP Q6H PRN PRN Reason: Nausea/Vomiting Promethazine HCl/Codeine (Phenergan/Codeine Oral Syrup) 5 ml PO Q4 PRN PRN Reason: Cough Last Admin: 01/28/17 03:13 Dose: 5 ml Saccharomyces Boulardii (Florastor) 250 mg PO BID [facility] Last Admin: 02/01/17 17:54 Dose: 250 mg - Labs Labs: 02/01/17 07:15 02/01/17 07:18 PT 13.2 SECONDS (9.7-12.2) H 01/20/17 19:37 INR 1.2 01/20/17 19:37 APTT 32 SECONDS (21-34) 01/20/17 19:37 Attending/Attestation - Attestation I have personally seen and examined this patient.: Yes I have fully participated in the care of the patient.: Yes I have reviewed all pertinent clinical information, including history, physical exam and plan: Yes Notes (Text): 02/01/17 20:22 Patient was seen and examined on 02/01/17 at 11:00 AM ROS: Some mild SOB overnight Still with occasional cough productive of small amounts of white material Subjective fever at night with sweats Exam: General: AAOx3, NAD HEENT: NCA, EOMI, PERRLA, NO cervical/supraclavicular/submandibular lymphadenopathy, NO pharyngeal erythema/exudate, Mucous Membranes are moist, Nasal Turbinates are nonedematous/nonerythematous Cardio: NS1 and NS2, NO M/R/G Respiratory: Faint inspiratory bibasilar inspiratory crackles GI: BSx4, Soft, NT, ND, NO HSM, NO guarding/rebound tenderness Ext: mild nonpitting edema involving the bilateral ankles, Pulses are strong and equal, Capillary Refill is 2 seconds Neuro: CN II through XII are grossly intact Assessments: Elevated Troponin: likely secondary to episode of V Tach. Cardiac Cath performed by Dr. Pryor 01/27/17 showed clean coronaries. Therapeutic Lovenox was discontinued. Troponin for morning 02/01/17 has decreased from prior. F/U Troponin for morning 02/02/17. Luekocytosis: repeat blood cultures negative, Sputum x [address] negative[address] with ID Dr. Calzada who was coverning for Dr. Carias and he recommended Bronchial Washing with cultures. Spoke with [employer] Dr. 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 Barrow has not responded to our calls to see this patient) and he had planned to perform bronchoscopy for morning 01/28/17. However, OR schedule did not free up, therefore Dr. Mckeon to schedule the bronchoscopy/bronchial washing for Thursday01/30/17 and this was performed: F/U Bronchial Mycobacteria Culture/ Gram Stain/Fungus Culture/Smear. After speaking with Dr. Carias on 01/27/17 she recommended restarting antibiotics and Zyvox and Meropenem and these were added considering the luekocytosis and fever at night time, both of which still persist. Hyponatremia: resolved. Monitor for now and follow up 02/02/17 labs. Hx Bacteremia: repeat cultures have been negative to date. Hx of TB Prophylaxis: he was on INH upon admission but currently not on anything. Sputum x [address] Chest 01/26/17 shows no change when compared to 01/20/17 (please see full reports). Sputum culture 01/26/17 showed yeast species but before starting treatment, pending brochoscopy/bronchial washings cultures results Hx Diffuse Rash: resolved Hx Pancreatic Lesion: F/U CT Abdomen in 6 months Superficial Throbophlebitis: Right Cephalic Vein Thrombosis as per UE Duplex. Aspirin Hx Constipation: resolved Anemia: stable Hx Hypothyroidism: levothyroxine Hx Vertigo: resolved and was likely secondary to the Minocycline that patient was on at the time of admission and once discontinued, this issue resolved and has not recurred Hx Diarrhea: resolved Hx Bilateral Lower Leg Edema: duplex are negative, much improved and now mild non-pitting edema involving the ankles Hx Elevated LFTs: resolved Ian Gresham D.O.
[2017-02-01] MEDS: Micafungin 100 MG in Sodium Chloride 0.9% 100 ML IV SCH (13:51)
[2017-02-01] MEDS: Calcium Carbonate 500 mg Chewable Antacid Tab PO SCH (17:54)
[2017-02-02] MEDS: Linezolid 600 mg in D5W 300 ml 600 MG/300 ML BAG IVPB SCH ×2 (03:58→17:00)
[2017-02-02] MEDS: Levothyroxine 88 MCG TAB PO SCH (06:24)
[2017-02-02] MEDS: Meropenem 1 GM in Sodium Chloride 0.9% 100 ML IVPB SCH ×3 (06:24→22:01)
[2017-02-02] MEDS: Saccharomyces Boulardi 250 mg Cap PO SCH ×2 (09:24→18:18)
[2017-02-02] MEDS: Calcium Carbonate 500 mg Chewable Antacid Tab PO SCH ×2 (09:25→18:19)
[2017-02-02] MEDS: guaiFENesin 600 mg ER Tab PO SCH ×2 (09:25→18:19)
[2017-02-02 11:17] LABS: BASO % 0.2 % (0.0-2.0); EOS # 0.5 K/uL (0.0-0.7); EOS % 2.7 % (0.0-4.0); HEMATOCRIT 29.3 % (35.0-51.0); LYMPH # 1.3 K/uL (1.0-4.3); LYMPH % 7.1 % (20.0-40.0); MEAN CELL VOLUME 83.1 fL (80.0-94.0); MEAN CORPUSCULAR HEMOGLOBIN 27.3 pg (27.0-31.0); MEAN CORPUSCULAR HGB CONC 32.8 g/dL (33.0-37.0); MEAN PLATELET VOLUME 8.1 fL (7.2-11.7); MONO # 0.2 K/uL (0.0-0.8); MONO % 1.3 % (0.0-10.0); PLATELET COUNT 431 K/uL (130-400); RED CELL DISTRIBUTION WIDTH 20.1 % (11.5-14.5); WHITE BLOOD COUNT 18.2 K/uL (4.8-10.8)
[2017-02-02 11:25] LABS: CHLORIDE 100 mmol/L (98-107)
[2017-02-02 11:26] LABS: POTASSIUM 3.6 mmol/L (3.6-5.2); SODIUM 133 mmol/L (132-148)
[2017-02-02 11:28] LABS: ALB/GLOB RATIO 0.5 (1.0-2.1); ALKALINE PHOSPHATASE 113 U/L (38-126); ALT/SGPT 40 U/L (21-72); AST/SGOT 35 U/L (17-59); BILIRUBIN,TOTAL 0.4 mg/dL (0.2-1.3); BLOOD UREA NITROGEN 12 mg/dL (9-20); CARBON DIOXIDE 25 mmol/L (22-30); GFR AFRICAN-AMERICAN > 60; TOTAL PROTEIN 7.7 g/dL (6.3-8.3)
[2017-02-02 11:29] LABS: CALCIUM 7.8 mg/dl (8.6-10.4); GLUCOSE,RANDOM 170 mg/dL (75-110)
[2017-02-02 11:53] LABS: TOTAL CELLS COUNTED 100
[2017-02-02 12:09] LABS: EOSINOPHIL 1 % (0-4); NEUTROPHIL 94 % (50-75)
[2017-02-02] MEDS: Micafungin 100 MG in Sodium Chloride 0.9% 100 ML IV SCH (13:42)
--- NOTE | 2017-02-02 19:19 | CP.PCM.PN ---
Subjective - Date & Time of Evaluation Date of Evaluation: 02/02/17 Time of Evaluation: 19:16 - Subjective Subjective: PGY1 Note for Dr. Delarosa HPI: Patient seen and examined at bedside. Doing well. Subjective fever overnight. No other complaints at this time. Denies CP, SOB, N/V/D, chills. Objective - Vital Signs/Intake and Output Vital Signs (last 24 hours): Temp Pulse Resp BP Pulse Ox 99.3 F 89 20 120/66 98 02/02/17 15:00 02/02/17 15:00 02/02/17 15:00 02/02/17 15:04 02/02/17 15:00 Intake and Output: 02/02/17 02/03/17 18:59 06:59 Intake Total 920 Balance 920 - Medications Medications: Current Medications Acetaminophen (Tylenol 325mg Tab) 650 mg PO Q6 PRN PRN Reason: Fever >100.4 F Last Admin: 02/02/17 00:25 Dose: 650 mg Amiodarone HCl (Cordarone) 200 mg PO BID [facility] Last Admin: 02/02/17 18:19 Dose: 200 mg Aspirin (Aspirin Chewable) 81 mg PO DAILY [facility] Last Admin: 02/02/17 09:25 Dose: 81 mg Calcium Carbonate (Tums) 500 mg PO BID [facility] Last Admin: 02/02/17 18:19 Dose: 500 mg Docusate Sodium (Colace) 100 mg PO TID [facility] Last Admin: 02/02/17 18:19 Dose: 100 mg Famotidine (Pepcid) 20 mg PO BID [facility] Last Admin: 02/02/17 18:19 Dose: 20 mg Guaifenesin (Mucinex La) 600 mg PO BID [facility] Last Admin: 02/02/17 18:19 Dose: 600 mg Meropenem 1 gm/ Sodium (Chloride) 100 mls @ 100 mls/hr IVPB Q8 [facility] Last Admin: 02/02/17 15:05 Dose: 100 mls/hr Linezolid (Zyvox 600mg/300ml D5w) 600 mg in 300 mls @ 300 mls/hr IVPB Q12H [facility] Last Admin: 02/02/17 17:00 Dose: 300 mls/hr Micafungin Sodium 100 mg/ (Sodium Chloride) 100 mls @ 100 mls/hr IV Q24H [facility] Last Admin: 02/02/17 13:42 Dose: 100 mls/hr Ipratropium [place] (Atrovent Hfa) 2 puff IH RQ6 PRN PRN Reason: Shortness of Breath Levothyroxine Sodium (Synthroid) 88 mcg PO DAILY@0630 [facility] Last Admin: 02/02/17 06:24 Dose: 88 mcg Metoprolol Tartrate (Lopressor) 25 mg PO Q6H [facility] Last Admin: 02/02/17 15:04 Dose: 25 mg Ondansetron HCl (Zofran Inj) 4 mg IVP Q6H PRN PRN Reason: Nausea/Vomiting Promethazine HCl/Codeine (Phenergan/Codeine Oral Syrup) 5 ml PO Q4 PRN PRN Reason: Cough Last Admin: 01/28/17 03:13 Dose: 5 ml Saccharomyces Boulardii (Florastor) 250 mg PO BID [facility] Last Admin: 02/02/17 18:18 Dose: 250 mg - Labs Labs: 02/02/17 11:06 02/02/17 11:06 PT 13.2 SECONDS (9.7-12.2) H 01/20/17 19:37 INR 1.2 01/20/17 19:37 APTT 32 SECONDS (21-34) 01/20/17 19:37 - Constitutional Appears: Well, No Acute Distress - Head Exam Head Exam: ATRAUMATIC, NORMAL INSPECTION, NORMOCEPHALIC - Eye Exam Eye Exam: EOMI - ENT Exam ENT Exam: Mucous Membranes Moist - Respiratory Exam Respiratory Exam: Clear to Ausculation Bilateral - Cardiovascular Exam Cardiovascular Exam: REGULAR RHYTHM - GI/Abdominal Exam GI & Abdominal Exam: Soft. absent: Distended, Tenderness - Extremities Exam Extremities Exam: absent: Joint Swelling, Pedal Edema - Neurological Exam Neurological Exam: Alert, Awake, Oriented x3 - Psychiatric Exam Psychiatric exam: Normal Affect, Normal Mood - Skin Skin Exam: Dry, Intact, Normal Color, Warm Assessment and Plan - Assessment and Plan (Free Text) Assessment: Leukocytosis * Bronch - yeast and Coag negative staph from Bronchial washing * WBC: 18.2 * Temp 100.5 * Urine culture negative * ID (Jv) reccs: Zyvox 600mg IV Q12, Meropenem 1g IV Q8, Micafungin 100mg IV QD Respiratory infection ID (Mangia) recommends to hold INH given that AFB is negative and quantiferon indeterminate ID (Jv) reccs: Zyvox 600mg IV Q12, Meropenem 1g IV Q8, Micafungin 100mg IV QD Pulm (Mike): yeast and Coag negative staph from Bronchial washing Imaging: * Barium swallow: No aspiration * 01/19 CXR: bibasilar opacities, opacitiy in Right upper lobe, small b/l pleural effusion * 01/21: Chest CT: interstital pneumonitis Vs collagen vascular disease Vs Cryptogenic organizing pneumonia V sarcoid * 01/26: Chest CT: B/l LL opacities Fever T= 100.5 Patient refuses hypothermic blanket Anemia * H/H = 9.6/29.3 History of hypothyroidism Continue home medication: * Synthroid 88mcg PO daily * TSH normal Vtach Patient Had Rapid called on 01/26 for Vtach - was asx Cath on 01/27 - Normal coronaries, normal EF by echo Started on Metoprolol 25 Q6H Echo - EF 65-70 Elevated trop today 0.2050 trending down Stopped therapeutic Lovenox 01/30 Another episode of Asx Vtach (13 beats), Cards (Voudouris) started Cordarone 200mg PO BID Pancreatic Lesion CT Pancreas (01/19): redemonstrated pancreatic mass. GI recs = repeat imaging in 6mo Hx of TB PPX * On INH at admission, no longer on anything * Sputum x 3 negative * Repeat CT Chest 01/26/17 shows no change when compared to 01/20/17 * Sputum culture 01/26/17 showed yeast species confirmed with bronch - Micafungin 100mg IV QD Superficial Throbophlebitis * Right Cephalic Vein Thrombosis as per UE Duplex * Aspirin 81mg PO QD Diffuse Macular Rash - RESOLVED Possibly secondary to antibiotics Continue to monitor Elevated LFTs - RESOLVED 01/20: Abdominal US = hepatic steatosis Vs parenchymal infection/inflammation. No GS or biliary dilation Lower Extremity Edema - RESOLVED Ankle X-ray: No fracture or arthritis. Mild circumferential soft tissue swelling bilaterally duplex are negative Has decreased substantially Nonpitting edema of the ankles still present Vertigo - RESOLVED Possibly secondary to drug-induced (Minocycline HCl - discontinued) 01/02: HIV antibody 1 and 2 screen ordered: Negative CT head: No acute findings Brain MRI: No infarct, Unremarkable Carotid doppler: No significant stenosis Diarrhea - RESOLVED C. diff negative; O/P negative Constipation - RESOLVED Bacteremia - RESOLVED All cultures negative Constipation - RESOLVED Miralax and Colace 100 mg po TID Hyponatremia - RESOLVED Na = 132 Monitor Prophylactic measure SCDs Ambulating Pepcid 20mg PO BID Florastor 250mg PO BID Lovenox 30mg SC Q12
[2017-02-03] MEDS: Linezolid 600 mg in D5W 300 ml 600 MG/300 ML BAG IVPB SCH (05:36)
[2017-02-03] MEDS: Levothyroxine 88 MCG TAB PO SCH (05:36)
[2017-02-03] MEDS: Meropenem 1 GM in Sodium Chloride 0.9% 100 ML IVPB SCH (05:37)
--- NOTE | 2017-02-03 06:27 | CP.PCM.PN ---
Subjective - Date & Time of Evaluation Date of Evaluation: 02/03/17 Time of Evaluation: 06:24 - Subjective Subjective: PGY1 Note for Dr. Delarosa HPI: 51 M patient examined at bedside. Patient is complaining of night sweats and fever. Sweating is severe, requiring a new gown. They begin around 10pm and were off and on throughout the night. Fevers stopped this morning around 7 am and he is currently feeling well and in good spirits. Patient states he is doing okay. Patient is tolerating a diet and ambulating well. He denies pain in chest/trouble breathing/n/v/chills/diarrhea/ constipation. Objective - Vital Signs/Intake and Output Vital Signs (last 24 hours): Temp Pulse Resp BP Pulse Ox 97.7 F 65 20 107/53 L 98 02/03/17 04:00 02/03/17 04:00 02/03/17 04:00 02/03/17 04:00 02/03/17 04:00 Intake and Output: 02/02/17 02/03/17 18:59 06:59 Intake Total 920 400 Balance 920 400 - Medications Medications: Current Medications Acetaminophen (Tylenol 325mg Tab) 650 mg PO Q6 PRN PRN Reason: Fever >100.4 F Last Admin: 02/02/17 22:00 Dose: 650 mg Amiodarone HCl (Cordarone) 200 mg PO BID [facility] Last Admin: 02/02/17 18:19 Dose: 200 mg Aspirin (Aspirin Chewable) 81 mg PO DAILY [facility] Last Admin: 02/02/17 09:25 Dose: 81 mg Calcium Carbonate (Tums) 500 mg PO BID [facility] Last Admin: 02/02/17 18:19 Dose: 500 mg Docusate Sodium (Colace) 100 mg PO TID [facility] Last Admin: 02/02/17 18:19 Dose: 100 mg Famotidine (Pepcid) 20 mg PO BID [facility] Last Admin: 02/02/17 18:19 Dose: 20 mg Guaifenesin (Mucinex La) 600 mg PO BID [facility] Last Admin: 02/02/17 18:19 Dose: 600 mg Meropenem 1 gm/ Sodium (Chloride) 100 mls @ 100 mls/hr IVPB Q8 [facility] Last Admin: 02/03/17 05:37 Dose: 100 mls/hr Linezolid (Zyvox 600mg/300ml D5w) 600 mg in 300 mls @ 300 mls/hr IVPB Q12H [facility] Last Admin: 02/03/17 05:36 Dose: 300 mls/hr Micafungin Sodium 100 mg/ (Sodium Chloride) 100 mls @ 100 mls/hr IV Q24H [facility] Last Admin: 02/02/17 13:42 Dose: 100 mls/hr Ipratropium [place] (Atrovent Hfa) 2 puff IH RQ6 PRN PRN Reason: Shortness of Breath Levothyroxine Sodium (Synthroid) 88 mcg PO DAILY@0630 [facility] Last Admin: 02/03/17 05:36 Dose: 88 mcg Metoprolol Tartrate (Lopressor) 25 mg PO Q6H [facility] Last Admin: 02/03/17 04:00 Dose: Not Given Ondansetron HCl (Zofran Inj) 4 mg IVP Q6H PRN PRN Reason: Nausea/Vomiting Promethazine HCl/Codeine (Phenergan/Codeine Oral Syrup) 5 ml PO Q4 PRN PRN Reason: Cough Last Admin: 01/28/17 03:13 Dose: 5 ml Saccharomyces Boulardii (Florastor) 250 mg PO BID [facility] Last Admin: 02/02/17 18:18 Dose: 250 mg - Labs Labs: 02/02/17 11:06 02/02/17 11:06 PT 13.2 SECONDS (9.7-12.2) H 01/20/17 19:37 INR 1.2 01/20/17 19:37 APTT 32 SECONDS (21-34) 01/20/17 19:37 - Constitutional Appears: Well, Non-toxic, No Acute Distress - Head Exam Head Exam: ATRAUMATIC, NORMAL INSPECTION, NORMOCEPHALIC - Eye Exam Eye Exam: EOMI Pupil Exam: NORMAL ACCOMODATION - ENT Exam ENT Exam: Mucous Membranes Moist - Respiratory Exam Respiratory Exam: Clear to Ausculation Bilateral, NORMAL BREATHING PATTERN. absent: Rales, Rhonchi, Wheezes, Stridor - Cardiovascular Exam Cardiovascular Exam: REGULAR RHYTHM, RRR. absent: Clicks, Diastolic murmur, Gallop, Irregular Rhythm, Murmur - GI/Abdominal Exam GI & Abdominal Exam: Soft, Normal Bowel Sounds. absent: Distended, Tenderness - Extremities Exam Extremities Exam: absent: Joint Swelling, Pedal Edema - Neurological Exam Neurological Exam: Alert, Awake, Oriented x3 - Psychiatric Exam Psychiatric exam: Normal Affect, Normal Mood - Skin Skin Exam: Dry, Intact, Normal Color, Warm Assessment and Plan - Assessment and Plan (Free Text) Assessment: Leukocytosis * Bronch - yeast and Coag negative staph from Bronchial washing * WBC: 18.2 * Temp 102.2 * Urine culture negative * ID (Jv) reccs: Zyvox 600mg IV Q12, Meropenem 1g IV Q8, Micafungin 100mg IV QD * CT of the chest, abd, pelvis - F/U * Malaria/babesiosis - F/U * ESR - F/U Respiratory infection ID (Mangia) recommends to hold INH given that AFB is negative and quantiferon indeterminate ID (Jv) reccs: Zyvox 600mg IV Q12, Meropenem 1g IV Q8, Micafungin 100mg IV QD Pulm (Mike): yeast and Coag negative staph from Bronchial washing Imaging: * Barium swallow: No aspiration * 01/19 CXR: bibasilar opacities, opacitiy in Right upper lobe, small b/l pleural effusion * 01/21: Chest CT: interstital pneumonitis Vs collagen vascular disease Vs Cryptogenic organizing pneumonia V sarcoid * 01/26: Chest CT: B/l LL opacities Fever T= 102.2 Patient refuses hypothermic blanket Anemia * H/H = 9.6/29.3 History of hypothyroidism Continue home medication: * Synthroid 88mcg PO daily * TSH normal Vtach Patient Had Rapid called on 01/26 for Vtach - was asx Cath on 01/27 - Normal coronaries, normal EF by echo Started on Metoprolol 25 Q6H Echo - EF 65-70 Elevated trop today 0.2050 trending down Stopped therapeutic Lovenox 01/30 Another episode of Asx Vtach (13 beats), Cards (Shira) started Cordarone 200mg PO BID Pancreatic Lesion CT Pancreas (01/19): redemonstrated pancreatic mass. GI recs = repeat imaging in 6mo Hx of TB PPX * On INH at admission, no longer on anything * Sputum x 3 negative * Repeat CT Chest 01/26/17 shows no change when compared to 01/20/17 * Sputum culture 01/26/17 showed yeast species confirmed with bronch - Micafungin 100mg IV QD * Negative aspergillus serology Superficial Throbophlebitis * Right Cephalic Vein Thrombosis as per UE Duplex * Aspirin 81mg PO QD Diffuse Macular Rash - RESOLVED Possibly secondary to antibiotics Continue to monitor Elevated LFTs - RESOLVED 01/20: Abdominal US = hepatic steatosis Vs parenchymal infection/inflammation. No GS or biliary dilation Lower Extremity Edema - RESOLVED Ankle X-ray: No fracture or arthritis. Mild circumferential soft tissue swelling bilaterally duplex are negative Has decreased substantially Nonpitting edema of the ankles still present Vertigo - RESOLVED Possibly secondary to drug-induced (Minocycline HCl - discontinued) 01/02: HIV antibody 1 and 2 screen ordered: Negative CT head: No acute findings Brain MRI: No infarct, Unremarkable Carotid doppler: No significant stenosis Diarrhea - RESOLVED C. diff negative; O/P negative Constipation - RESOLVED Bacteremia - RESOLVED All cultures negative Constipation - RESOLVED Miralax and Colace 100 mg po TID Hyponatremia - RESOLVED Na = 133 Monitor Prophylactic measure SCDs Ambulating Pepcid 20mg PO BID Florastor 250mg PO BID Lovenox 30mg SC Q12
[2017-02-03] MEDS: Calcium Carbonate 500 mg Chewable Antacid Tab PO SCH ×2 (09:50→18:00)
[2017-02-03] MEDS: Saccharomyces Boulardi 250 mg Cap PO SCH ×2 (09:50→17:12)
[2017-02-03] MEDS: guaiFENesin 600 mg ER Tab PO SCH ×2 (09:51→17:12)
[2017-02-03 11:47] LABS: BASO # 0.1 K/uL (0.0-0.2); BASO % 0.4 % (0.0-2.0); EOS # 0.6 K/uL (0.0-0.7); EOS % 3.2 % (0.0-4.0); HEMATOCRIT 30.1 % (35.0-51.0); LYMPH # 1.6 K/uL (1.0-4.3); LYMPH % 8.8 % (20.0-40.0); MEAN CELL VOLUME 84.4 fL (80.0-94.0); MEAN CORPUSCULAR HEMOGLOBIN 27.1 pg (27.0-31.0); MEAN CORPUSCULAR HGB CONC 32.1 g/dL (33.0-37.0); MONO # 0.3 K/uL (0.0-0.8); MONO % 1.6 % (0.0-10.0); PLATELET COUNT 473 K/uL (130-400); RED CELL DISTRIBUTION WIDTH 19.9 % (11.5-14.5); WHITE BLOOD COUNT 18.2 K/uL (4.8-10.8)
[2017-02-03 11:57] LABS: CHLORIDE 101 mmol/L (98-107)
[2017-02-03 11:58] LABS: POTASSIUM 3.6 mmol/L (3.6-5.2); SODIUM 134 mmol/L (132-148)
[2017-02-03 12:00] LABS: BILIRUBIN,TOTAL 0.4 mg/dL (0.2-1.3); CARBON DIOXIDE 26 mmol/L (22-30); GFR AFRICAN-AMERICAN > 60
[2017-02-03 12:01] LABS: ALB/GLOB RATIO 0.5 (1.0-2.1); ALKALINE PHOSPHATASE 118 U/L (38-126); ALT/SGPT 37 U/L (21-72); AST/SGOT 37 U/L (17-59); BLOOD UREA NITROGEN 13 mg/dL (9-20); CALCIUM 7.9 mg/dl (8.6-10.4); GLUCOSE,RANDOM 137 mg/dL (75-110); TOTAL PROTEIN 7.9 g/dL (6.3-8.3)
[2017-02-03 12:33] LABS: EOSINOPHIL 2 % (0-4); METAMYELOCYTE 1 % (0-0); MYELOCYTE 3 % (0-0); NEUTROPHIL 83 % (50-75); TOTAL CELLS COUNTED 100
[2017-02-03] MEDS: Fluconazole IV 200mg/100 ml NS 100 ML IVPB SCH (14:07)
[2017-02-03] MEDS ORDERED: Iohexol 300 100 ML IJ ONE (17:43)
[2017-02-03] MEDS ORDERED: Iohexol 240 (50 ml) PO ONE (17:45)
[2017-02-03 22:36] LABS: INTRACELLULAR PARASITE NEGATIVE (NEGATIVE)
[2017-02-03 22:55] LABS: RBC URINE 1 /hpf (0-3); URINE BILIRUBIN NEGATIVE (NEGATIVE); URINE BLOOD NEGATIVE (NEGATIVE); URINE COLOR Straw (YELLOW); URINE GLUCOSE (UA) NORMAL (Normal); URINE KETONE NEGATIVE (NEGATIVE); URINE LEUKOCYTE ESTERASE NEG Leu/uL (Negative); URINE PROTEIN NEGATIVE (NEGATIVE); URINE UROBILINOGEN NORMAL mg/dL (0.2-1.0); WBC URINE < 1 /hpf (0-5)
--- NOTE | 2017-02-04 00:44 | CT ---
EXAM: CT Abdomen and Pelvis With Intravenous Contrast CLINICAL HISTORY: 51 years old, male; Condition or disease; Other: Pain; Lung condition and disease; Tuberculosis and other: R/O lymphoma TECHNIQUE: Axial computed tomography images of the abdomen and pelvis with intravenous contrast. All CT scans at this facility use one or more dose reduction techniques, viz.: automated exposure control; ma/kV adjustment per patient size (including targeted exams where dose is matched to indication; i.e. head); or iterative reconstruction technique. Coronal and sagittal reformatted images were created and reviewed. CONTRAST: 100 mL of OMNIPAQUE 300 administered intravenously. COMPARISON: 01/08/2017 Examination is limited by a lack of intra-abdominal and intrapelvic fat. FINDINGS: ABDOMEN: Liver: The liver is enlarged. Gallbladder and bile ducts: The gallbladder is decompressed. No calcified stones. No significant intra- or extrahepatic biliary ductal dilation. Pancreas: Enhances homogeneously. No ductal dilation. No discrete mass. The 8mm focus of decreased density within the tail of the pancreas is not appreciated on the current study. Spleen: No acute findings. Adrenals: No acute findings. Kidneys and ureters: No acute findings. No hydronephrosis or obstructing renal calculi. No discrete solid mass. Multiple punctate (1 and 2 mm) nonobstructing calculi are detected bilaterally. Stable fluid attenuation focus within the lower pole of the right kidney, measuring 23 mm in greatest dimension. PELVIS: Bladder: No acute findings. Reproductive: No acute findings. Appendix: The appendix is not visualized. ABDOMEN and PELVIS: Stomach and bowel: Oral contrast extends to the level of the distal small bowel without obstruction. No mucosal thickening. Aerated stool is identified throughout the colon. Bilateral fat containing inguinal hernias are present. Peritoneum: No significant fluid collection. No free air. Lymph nodes: Minimally enlarged lymph nodes are identified within the bilateral inguinal regions the lack of intra-abdominal and intrapelvic fat precludes adequate detection of subcentimeter lymphadenopathy.. Vasculature: Unremarkable. Bones: No acute fracture. IMPRESSION: Bilateral nonobstructing renal calculi. No obstruction. Right renal (likely) cyst. Superficial non-pathologically enlarged bilateral inguinal lymph nodes. EXAM: CT Chest With Intravenous Contrast CLINICAL HISTORY: 51 years old, male; Condition or disease; Other: Pain; Lung condition and disease; Tuberculosis and other: R/O lymphoma TECHNIQUE: Axial computed tomography images of the chest with intravenous contrast. All CT scans at this facility use one or more dose reduction techniques, viz.: automated exposure control; ma/kV adjustment per patient size (including targeted exams where dose is matched to indication; i.e. head); or iterative reconstruction technique. Coronal and sagittal reformatted images were created and reviewed. CONTRAST: 100 mL of OMNIPAQUE 300 administered intravenously. COMPARISON: CT - CHEST W/O CONTRAST 01/20/2017 and 01/08/2017 FINDINGS: Lungs: Septal thickening is detected bilaterally. Persistent bibasilar consolidation. Varicose bronchiectasis is again identified. Patchy nondependent groundglass opacification is also detected. Scattered subpleural cysts are also noted. Pleural spaces: No significant effusion. No pneumothorax. Heart: No cardiomegaly. No significant pericardial effusion. Vasculature: No aortic aneurysm. Lymph nodes: Again identified, are multiple mediastinal and axillary lymph nodes. Cervical lymphadenopathy is also present, with limited measurement capability, secondary to the lack of adjacent fat. Bones: No acute fracture. No lytic or blastic lesions are identified. IMPRESSION: Largely stable findings within the chest, when compared with previous examination is performed 01/20/2017 and 01/08/2017.
[2017-02-04] MEDS: Levothyroxine 88 MCG TAB PO SCH (06:23)
[2017-02-04] MEDS: Saccharomyces Boulardi 250 mg Cap PO SCH ×2 (09:30→18:34)
[2017-02-04] MEDS: guaiFENesin 600 mg ER Tab PO SCH ×2 (09:30→18:34)
[2017-02-04 11:32] LABS: BASO % 0.1 % (0.0-2.0); EOS # 0.5 K/uL (0.0-0.7); EOS % 1.8 % (0.0-4.0); HEMATOCRIT 31.6 % (35.0-51.0); LYMPH # 1.5 K/uL (1.0-4.3); LYMPH % 6.1 % (20.0-40.0); MEAN CELL VOLUME 83.6 fL (80.0-94.0); MEAN CORPUSCULAR HGB CONC 32.2 g/dL (33.0-37.0); MEAN PLATELET VOLUME 7.8 fL (7.2-11.7); MONO # 0.2 K/uL (0.0-0.8); NRBC % 0.1 % (0.0-2.0); PLATELET COUNT 515 K/uL (130-400); RED CELL DISTRIBUTION WIDTH 19.6 % (11.5-14.5); WHITE BLOOD COUNT 25.1 K/uL (4.8-10.8)
[2017-02-04 11:45] LABS: CHLORIDE 98 mmol/L (98-107); SODIUM 133 mmol/L (132-148)
[2017-02-04 11:47] LABS: ALB/GLOB RATIO 0.5 (1.0-2.1); ALKALINE PHOSPHATASE 123 U/L (38-126); AST/SGOT 40 U/L (17-59); BILIRUBIN,TOTAL 0.5 mg/dL (0.2-1.3); CARBON DIOXIDE 26 mmol/L (22-30); GFR AFRICAN-AMERICAN > 60; TOTAL PROTEIN 8.4 g/dL (6.3-8.3)
[2017-02-04 11:48] LABS: ALT/SGPT 47 U/L (21-72); BLOOD UREA NITROGEN 15 mg/dL (9-20); CALCIUM 8.3 mg/dl (8.6-10.4); GLUCOSE,RANDOM 146 mg/dL (75-110)
[2017-02-04 12:50] LABS: EOSINOPHIL 1 % (0-4); MYELOCYTE 1 % (0-0); NEUTROPHIL 88 % (50-75); TOTAL CELLS COUNTED 100
[2017-02-04] MEDS ORDERED: Ammonium Lactate 12% Lotion (225 g) EXT PRN (13:23)
[2017-02-04] MEDS: Fluconazole IV 200mg/100 ml NS 100 ML IVPB SCH (14:01)
[2017-02-04] MEDS: metroNIDAZOLE IV 500 mg/100 ml 500 MG/100 ML BAG IVPB SCH ×2 (14:24→22:50)
--- NOTE | 2017-02-04 14:35 | CP.PCM.PN ---
Subjective - Date & Time of Evaluation Date of Evaluation: 02/04/17 Time of Evaluation: 14:34 - Subjective Subjective: PGY1 Note for Dr. Delarosa HPI: 51 M patient examined at bedside. Patient states he experienced a fever and severe sweating through the night. Sweating was severe and patient was diaphoretic at bedside upon exam. He explains the fever began yesterday afternoon and subsisted. It spiked again through out the night. Patient denies an other symptoms throughout the night and was in good spirits this morning. Patient is tolerating his diet and ambulating well. Patient denies n/v/c/SOB/ chest pain. Objective - Vital Signs/Intake and Output Vital Signs (last 24 hours): Temp Pulse Resp BP Pulse Ox 98.6 F 69 20 106/62 98 02/04/17 07:00 02/04/17 07:00 02/04/17 07:00 02/04/17 14:22 02/04/17 07:00 Intake and Output: 02/04/17 02/04/17 06:59 18:59 Intake Total 120 Balance 120 - Medications Medications: Current Medications Acetaminophen (Tylenol 325mg Tab) 650 mg PO Q6 PRN PRN Reason: Fever >100.4 F Last Admin: 02/03/17 15:49 Dose: 650 mg Amiodarone HCl (Cordarone) 200 mg PO BID [facility] Last Admin: 02/04/17 09:30 Dose: 200 mg Aspirin (Aspirin Chewable) 81 mg PO DAILY [facility] Last Admin: 02/04/17 09:30 Dose: 81 mg Docusate Sodium (Colace) 100 mg PO TID [facility] Last Admin: 02/04/17 13:59 Dose: 100 mg Famotidine (Pepcid) 20 mg PO BID [facility] Last Admin: 02/04/17 09:30 Dose: 20 mg Guaifenesin (Mucinex La) 600 mg PO BID [facility] Last Admin: 02/04/17 09:30 Dose: 600 mg Fluconazole (Diflucan Iv 200 Mg/100 Ml Ns) 100 mls @ 100 mls/hr IVPB Q24H [facility] Last Admin: 02/04/17 14:01 Dose: 100 mls/hr Metronidazole (Flagyl) 500 mg in 100 mls @ 100 mls/hr IVPB Q8 [facility] Last Admin: 02/04/17 14:24 Dose: 100 mls/hr Ipratropium [place] (Atrovent Hfa) 2 puff IH RQ6 PRN PRN Reason: Shortness of Breath Lactic Acid (Lac-Hydrin 12% Lotion (225 G)) 225 gm EXT Q1H PRN PRN Reason: Dry skin Levothyroxine Sodium (Synthroid) 88 mcg PO DAILY@0630 [facility] Last Admin: 02/04/17 06:23 Dose: 88 mcg Metoprolol Tartrate (Lopressor) 25 mg PO Q6H [facility] Last Admin: 02/04/17 14:22 Dose: 25 mg Ondansetron HCl (Zofran Inj) 4 mg IVP Q6H PRN PRN Reason: Nausea/Vomiting Promethazine HCl/Codeine (Phenergan/Codeine Oral Syrup) 5 ml PO Q4 PRN PRN Reason: Cough Last Admin: 01/28/17 03:13 Dose: 5 ml Saccharomyces Boulardii (Florastor) 250 mg PO BID [facility] Last Admin: 02/04/17 09:30 Dose: 250 mg - Labs Labs: 02/04/17 11:21 02/04/17 11:21 PT 13.2 SECONDS (9.7-12.2) H 01/20/17 19:37 INR 1.2 01/20/17 19:37 APTT 32 SECONDS (21-34) 01/20/17 19:37 - Constitutional Appears: Well, Non-toxic, No Acute Distress - Head Exam Head Exam: ATRAUMATIC, NORMAL INSPECTION, NORMOCEPHALIC - Eye Exam Eye Exam: EOMI - ENT Exam ENT Exam: Mucous Membranes Moist - Respiratory Exam Respiratory Exam: Clear to Ausculation Bilateral, NORMAL BREATHING PATTERN. absent: Rhonchi, Wheezes, Stridor - Cardiovascular Exam Cardiovascular Exam: REGULAR RHYTHM, RRR. absent: Diastolic murmur, JVD, Murmur - GI/Abdominal Exam GI & Abdominal Exam: Soft, Normal Bowel Sounds. absent: Distended, Tenderness - Extremities Exam Extremities Exam: absent: Joint Swelling, Pedal Edema, Tenderness - Neurological Exam Neurological Exam: Alert, Awake, Oriented x3 - Psychiatric Exam Psychiatric exam: Normal Affect, Normal Mood - Skin Skin Exam: Dry, Intact, Normal Color, Warm Assessment and Plan - Assessment and Plan (Free Text) Assessment: Leukocytosis * Bronch - yeast and Coag negative staph from Bronchial washing * WBC: 18.2 * Temp 102.2 * Urine culture negative * ID (Jv) reccs: Diflucan 200 IV QD, Flagyl 500 IV Q8 * CT of the chest, abd, pelvis = unremarkable * Malaria/babesiosis = Negative * ESR = 125 * Testing C-ANCA, CHAVA, Q Fever, Sputum culture for TB Respiratory infection ID (Mangia) recommends to hold INH given that AFB is negative and quantiferon indeterminate ID (Jv) reccs: Zyvox 600mg IV Q12, Meropenem 1g IV Q8, Micafungin 100mg IV QD Pulm (Mike): yeast and Coag negative staph from Bronchial washing Imaging: * Barium swallow: No aspiration * 01/19 CXR: bibasilar opacities, opacitiy in Right upper lobe, small b/l pleural effusion * 01/21: Chest CT: interstital pneumonitis Vs collagen vascular disease Vs Cryptogenic organizing pneumonia V sarcoid * 01/26: Chest CT: B/l LL opacities Dry Hands * Lotion ordered PRN Fever T= 101.5 Patient refuses hypothermic blanket Anemia * H/H = 10.2/31.6 History of hypothyroidism Continue home medication: * Synthroid 88mcg PO daily * TSH normal Vtach Patient Had Rapid called on 01/26 for Vtach - was asx Cath on 01/27 - Normal coronaries, normal EF by echo Started on Metoprolol 25 Q6H Echo - EF 65-70 Elevated trop today 0.2050 trending down Stopped therapeutic Lovenox 01/30 Another episode of Asx Vtach (13 beats), Cards (Voudouris) started Cordarone 200mg PO BID Pancreatic Lesion CT Pancreas (01/19): redemonstrated pancreatic mass. GI recs = repeat imaging in 6mo Hx of TB PPX * On INH at admission, no longer on anything * Sputum x 3 negative * Repeat CT Chest 01/26/17 shows no change when compared to 01/20/17 * Sputum culture 01/26/17 showed yeast species confirmed with bronch - Flagyl 500 IV Q8 * Negative aspergillus serology * Final - Marcella Superficial Throbophlebitis * Right Cephalic Vein Thrombosis as per UE Duplex * Aspirin 81mg PO QD Diffuse Macular Rash - RESOLVED Possibly secondary to antibiotics Continue to monitor Elevated LFTs - RESOLVED 01/20: Abdominal US = hepatic steatosis Vs parenchymal infection/inflammation. No GS or biliary dilation Lower Extremity Edema - RESOLVED Ankle X-ray: No fracture or arthritis. Mild circumferential soft tissue swelling bilaterally duplex are negative Has decreased substantially Nonpitting edema of the ankles still present Vertigo - RESOLVED Possibly secondary to drug-induced (Minocycline HCl - discontinued) 01/02: HIV antibody 1 and 2 screen ordered: Negative CT head: No acute findings Brain MRI: No infarct, Unremarkable Carotid doppler: No significant stenosis Diarrhea - RESOLVED C. diff negative; O/P negative Constipation - RESOLVED Bacteremia - RESOLVED All cultures negative Constipation - RESOLVED Miralax and Colace 100 mg po TID Hyponatremia - RESOLVED Na = 133 Monitor Prophylactic measure SCDs Ambulating Pepcid 20mg PO BID Florastor 250mg PO BID Lovenox 30mg SC Q12
[2017-02-05] MEDS: metroNIDAZOLE IV 500 mg/100 ml 500 MG/100 ML BAG IVPB SCH ×3 (05:50→21:39)
[2017-02-05] MEDS: Levothyroxine 88 MCG TAB PO SCH (06:19)
[2017-02-05] MEDS: guaiFENesin 600 mg ER Tab PO SCH ×2 (10:26→18:27)
[2017-02-05] MEDS: Saccharomyces Boulardi 250 mg Cap PO SCH ×2 (10:27→18:27)
[2017-02-05 11:40] LABS: BASO % 0.2 % (0.0-2.0); EOS # 0.6 K/uL (0.0-0.7); EOS % 3.4 % (0.0-4.0); HEMATOCRIT 29.2 % (35.0-51.0); LYMPH # 1.5 K/uL (1.0-4.3); LYMPH % 8.6 % (20.0-40.0); MEAN CELL VOLUME 83.4 fL (80.0-94.0); MEAN CORPUSCULAR HGB CONC 32.4 g/dL (33.0-37.0); MEAN PLATELET VOLUME 7.7 fL (7.2-11.7); MONO # 0.3 K/uL (0.0-0.8); MONO % 1.6 % (0.0-10.0); PLATELET COUNT 456 K/uL (130-400); RED CELL DISTRIBUTION WIDTH 19.7 % (11.5-14.5); WHITE BLOOD COUNT 17.4 K/uL (4.8-10.8)
[2017-02-05 11:54] LABS: CHLORIDE 100 mmol/L (98-107); SODIUM 132 mmol/L (132-148)
[2017-02-05 11:55] LABS: POTASSIUM 3.6 mmol/L (3.6-5.2)
[2017-02-05 11:57] LABS: AST/SGOT 36 U/L (17-59); BILIRUBIN,TOTAL 0.4 mg/dL (0.2-1.3); CARBON DIOXIDE 26 mmol/L (22-30); GFR AFRICAN-AMERICAN > 60
[2017-02-05 11:58] LABS: ALB/GLOB RATIO 0.5 (1.0-2.1); ALKALINE PHOSPHATASE 106 U/L (38-126); ALT/SGPT 43 U/L (21-72); BLOOD UREA NITROGEN 15 mg/dL (9-20); CALCIUM 7.9 mg/dl (8.6-10.4); GLUCOSE,RANDOM 137 mg/dL (75-110); TOTAL PROTEIN 7.8 g/dL (6.3-8.3)
[2017-02-05 12:35] LABS: BASOPHIL 1 % (0-2); EOSINOPHIL 7 % (0-4); NEUTROPHIL 80 % (50-75); TOTAL CELLS COUNTED 100
[2017-02-05] MEDS: Fluconazole IV 200mg/100 ml NS 100 ML IVPB SCH (16:36)
--- NOTE | 2017-02-05 20:00 | CP.PCM.PN ---
Subjective - Date & Time of Evaluation Date of Evaluation: 02/05/17 Time of Evaluation: 19:58 - Subjective Subjective: PGY1 Note for Dr. Delarosa HPI: 51 M patient examined at bedside. Patient has continued complaints of night sweats and fever. A new gown was requested because of the severity of the night sweats. Patient was no longer diaphoretic when the exam was conducted. Patient denies any other acute episodes overnight. Denies SOB/pain in chest/n/v/ c. Patient is alert, awake, oriented, and in good spirits. Objective - Vital Signs/Intake and Output Vital Signs (last 24 hours): Temp Pulse Resp BP Pulse Ox 99.7 F H 78 18 128/87 100 02/05/17 17:35 02/05/17 15:59 02/05/17 15:59 02/05/17 16:36 02/05/17 15:59 - Medications Medications: Current Medications Acetaminophen (Tylenol 325mg Tab) 650 mg PO Q6 PRN PRN Reason: Fever >100.4 F Last Admin: 02/05/17 16:35 Dose: 650 mg Amiodarone HCl (Cordarone) 200 mg PO BID [facility] Last Admin: 02/05/17 18:27 Dose: 200 mg Docusate Sodium (Colace) 100 mg PO TID [facility] Last Admin: 02/05/17 18:27 Dose: 100 mg Famotidine (Pepcid) 20 mg PO BID [facility] Last Admin: 02/05/17 18:26 Dose: 20 mg Guaifenesin (Mucinex La) 600 mg PO BID [facility] Last Admin: 02/05/17 18:27 Dose: 600 mg Fluconazole (Diflucan Iv 200 Mg/100 Ml Ns) 100 mls @ 100 mls/hr IVPB Q24H [facility] Last Admin: 02/05/17 16:36 Dose: 100 mls/hr Metronidazole (Flagyl) 500 mg in 100 mls @ 100 mls/hr IVPB Q8 [facility] Last Admin: 02/05/17 13:46 Dose: 100 mls/hr Ipratropium [place] (Atrovent Hfa) 2 puff IH RQ6 PRN PRN Reason: Shortness of Breath Lactic Acid (Lac-Hydrin 12% Lotion (225 G)) 225 gm EXT Q1H PRN PRN Reason: Dry skin Last Admin: 02/04/17 18:34 Dose: 1 applic Levothyroxine Sodium (Synthroid) 88 mcg PO DAILY@0630 [facility] Last Admin: 02/05/17 06:19 Dose: 88 mcg Metoprolol Tartrate (Lopressor) 25 mg PO Q6H [facility] Last Admin: 02/05/17 16:36 Dose: 25 mg Ondansetron HCl (Zofran Inj) 4 mg IVP Q6H PRN PRN Reason: Nausea/Vomiting Promethazine HCl/Codeine (Phenergan/Codeine Oral Syrup) 5 ml PO Q4 PRN PRN Reason: Cough Last Admin: 01/28/17 03:13 Dose: 5 ml Saccharomyces Boulardii (Florastor) 250 mg PO BID [facility] Last Admin: 02/05/17 18:27 Dose: 250 mg - Labs Labs: 02/05/17 11:30 02/05/17 11:30 PT 13.2 SECONDS (9.7-12.2) H 01/20/17 19:37 INR 1.2 01/20/17 19:37 APTT 32 SECONDS (21-34) 01/20/17 19:37 - Constitutional Appears: Well, Non-toxic, No Acute Distress - Head Exam Head Exam: ATRAUMATIC, NORMAL INSPECTION - Eye Exam Eye Exam: EOMI - ENT Exam ENT Exam: Mucous Membranes Moist - Neck Exam Neck Exam: Full ROM - Respiratory Exam Respiratory Exam: Clear to Ausculation Bilateral, NORMAL BREATHING PATTERN - Cardiovascular Exam Cardiovascular Exam: REGULAR RHYTHM - GI/Abdominal Exam GI & Abdominal Exam: Soft. absent: Distended, Tenderness - Extremities Exam Extremities Exam: absent: Joint Swelling, Pedal Edema, Tenderness - Neurological Exam Neurological Exam: Alert, Awake, Oriented x3 - Psychiatric Exam Psychiatric exam: Normal Affect, Normal Mood - Skin Skin Exam: Dry, Intact, Normal Color, Warm Assessment and Plan - Assessment and Plan (Free Text) Assessment: Leukocytosis * Bronch - yeast and Coag negative staph from Bronchial washing * WBC: 17.4 * Temp 100.8 * Urine culture negative * ID (Jv) reccs: Diflucan 200 IV QD, Flagyl 500 IV Q8 * CT of the chest, abd, pelvis = unremarkable * Malaria/babesiosis = Negative * ESR = 125 * Testing C-ANCA, CHAVA, Q Fever, Sputum culture for TB Respiratory infection ID (Mangia) recommends to hold INH given that AFB is negative and quantiferon indeterminate ID (Jv) reccs: Zyvox 600mg IV Q12, Meropenem 1g IV Q8, Micafungin 100mg IV QD Pulm (Mike): yeast and Coag negative staph from Bronchial washing Imaging: * Barium swallow: No aspiration * 01/19 CXR: bibasilar opacities, opacitiy in Right upper lobe, small b/l pleural effusion * 01/21: Chest CT: interstital pneumonitis Vs collagen vascular disease Vs Cryptogenic organizing pneumonia V sarcoid * 01/26: Chest CT: B/l LL opacities Dry Hands * Lotion ordered PRN Fever T= 100.8 Patient refuses hypothermic blanket Heme ([place]) * F/U reccs Anemia * H/H = 9.5/22.2 History of hypothyroidism Continue home medication: * Synthroid 88mcg PO daily * TSH normal Vtach Patient Had Rapid called on 01/26 for Vtach - was asx Cath on 01/27 - Normal coronaries, normal EF by echo Started on Metoprolol 25 Q6H Echo - EF 65-70 Elevated trop today 0.2050 trending down Stopped therapeutic Lovenox 01/30 Another episode of Asx Vtach (13 beats), Cards (Voudouris) started Cordarone 200mg PO BID Pancreatic Lesion CT Pancreas (01/19): redemonstrated pancreatic mass. GI recs = repeat imaging in 6mo Hx of TB PPX * On INH at admission, no longer on anything * Sputum x 3 negative * Repeat CT Chest 01/26/17 shows no change when compared to 01/20/17 * Sputum culture 01/26/17 showed yeast species confirmed with bronch - Flagyl 500 IV Q8 * Negative aspergillus serology * Final - Marcella Superficial Throbophlebitis * Right Cephalic Vein Thrombosis as per UE Duplex * Aspirin 81mg PO QD Diffuse Macular Rash - RESOLVED Possibly secondary to antibiotics Continue to monitor Elevated LFTs - RESOLVED 01/20: Abdominal US = hepatic steatosis Vs parenchymal infection/inflammation. No GS or biliary dilation Lower Extremity Edema - RESOLVED Ankle X-ray: No fracture or arthritis. Mild circumferential soft tissue swelling bilaterally duplex are negative Has decreased substantially Nonpitting edema of the ankles still present Vertigo - RESOLVED Possibly secondary to drug-induced (Minocycline HCl - discontinued) 01/02: HIV antibody 1 and 2 screen ordered: Negative CT head: No acute findings Brain MRI: No infarct, Unremarkable Carotid doppler: No significant stenosis Diarrhea - RESOLVED C. diff negative; O/P negative Constipation - RESOLVED Bacteremia - RESOLVED All cultures negative Constipation - RESOLVED Miralax and Colace 100 mg po TID Hyponatremia - RESOLVED Na = 133 Monitor Prophylactic measure SCDs Ambulating Pepcid 20mg PO BID Florastor 250mg PO BID Lovenox 30mg SC Q12
--- NOTE | 2017-02-05 21:35 | CP.PCM.CON ---
History of Present Illness - History of Present Illness History of Present Illness: 51 year old male with a history of hypothroidism, recent treatment for suspected TB, admitted with vertigo and N/V, now with fever of unknown origin. The patient reports to daily fevers and weightloss which began 1-2 weeks prior to his admission. He denies sick contact and travel. He is currently being treated for possible fungal pneumonia. Imaging shows B/L airspace opacities, bronchiectasis, subpleural consolidation, and pleural effusion. Past medical history: hypothyroid Past surgical history: None Family history: Denies hematologic and oncologic problems Social history: Denies tobacco, alcohol, and illicit drug use. Works in a [employer] Allergies: levofloxacin Review of systems: All remaining review of systems including HEENT, cardiovacular, respiratory, gastrointestinal, genitourinary, musculoskeletal, dermatologic, neurologic, and psychiatric are negative unless mentioned in the HPI. Past Patient History - Infectious Disease Hx of Infectious Diseases: None - Past Medical History & Family History Past Medical History?: Yes - Past Social History Smoking Status: Never Smoked - CARDIAC Hx Cardiac Disorders: No - PULMONARY Hx Pneumonia: Yes - NEUROLOGICAL Hx Neurological Disorder: No - HEENT Hx HEENT Problems: No - RENAL Hx Chronic Kidney Disease: No - ENDOCRINE/METABOLIC Hx Hypothyroidism: Yes - HEMATOLOGICAL/ONCOLOGICAL Hx Blood Disorders: No - INTEGUMENTARY Hx Dermatological Problems: No Hx Eczema: Yes - MUSCULOSKELETAL/RHEUMATOLOGICAL Hx Falls: No - GASTROINTESTINAL Hx Gastrointestinal Disorders: No - GENITOURINARY/GYNECOLOGICAL Hx Genitourinary Disorders: No - PSYCHIATRIC Hx Substance Use: No - SURGICAL HISTORY Hx Surgeries: No - ANESTHESIA Hx Anesthesia: No Meds Allergies/Adverse Reactions: Allergies Allergy/AdvReac Type Severity Reaction Status Date / Time levofloxacin Allergy RASH Verified 01/17/17 07:47 - Medications Medications: Current Medications Acetaminophen (Tylenol 325mg Tab) 650 mg PO Q6 PRN PRN Reason: Fever >100.4 F Last Admin: 02/05/17 16:35 Dose: 650 mg Amiodarone HCl (Cordarone) 200 mg PO BID [facility] Last Admin: 02/05/17 18:27 Dose: 200 mg Docusate Sodium (Colace) 100 mg PO TID [facility] Last Admin: 02/05/17 18:27 Dose: 100 mg Famotidine (Pepcid) 20 mg PO BID [facility] Last Admin: 02/05/17 18:26 Dose: 20 mg Guaifenesin (Mucinex La) 600 mg PO BID [facility] Last Admin: 02/05/17 18:27 Dose: 600 mg Fluconazole (Diflucan Iv 200 Mg/100 Ml Ns) 100 mls @ 100 mls/hr IVPB Q24H [facility] Last Admin: 02/05/17 16:36 Dose: 100 mls/hr Metronidazole (Flagyl) 500 mg in 100 mls @ 100 mls/hr IVPB Q8 [facility] Last Admin: 02/05/17 13:46 Dose: 100 mls/hr Ipratropium [place] (Atrovent Hfa) 2 puff IH RQ6 PRN PRN Reason: Shortness of Breath Lactic Acid (Lac-Hydrin 12% Lotion (225 G)) 225 gm EXT Q1H PRN PRN Reason: Dry skin Last Admin: 02/04/17 18:34 Dose: 1 applic Levothyroxine Sodium (Synthroid) 88 mcg PO DAILY@0630 [facility] Last Admin: 02/05/17 06:19 Dose: 88 mcg Metoprolol Tartrate (Lopressor) 25 mg PO Q6H [facility] Last Admin: 02/05/17 16:36 Dose: 25 mg Ondansetron HCl (Zofran Inj) 4 mg IVP Q6H PRN PRN Reason: Nausea/Vomiting Promethazine HCl/Codeine (Phenergan/Codeine Oral Syrup) 5 ml PO Q4 PRN PRN Reason: Cough Last Admin: 01/28/17 03:13 Dose: 5 ml Saccharomyces Boulardii (Florastor) 250 mg PO BID [facility] Last Admin: 02/05/17 18:27 Dose: 250 mg Physical Exam - Head Exam Head Exam: ATRAUMATIC - Eye Exam Eye Exam: Normal appearance - ENT Exam ENT Exam: Mucous Membranes Dry - Respiratory Exam Respiratory Exam: NORMAL BREATHING PATTERN - Cardiovascular Exam Cardiovascular Exam: +S1, +S2 - GI/Abdominal Exam GI & Abdominal Exam: Normal Bowel Sounds - Extremities Exam Extremities exam: Positive for: normal inspection - Neurological Exam Neurological exam: Oriented x3 - Psychiatric Exam Psychiatric exam: Normal Affect, Normal Mood - Skin Skin Exam: Warm Results - Vital Signs Recent Vital Signs: Last Vital Signs Temp 99.7 F H 02/05/17 17:35 Pulse 78 02/05/17 15:59 Resp 18 02/05/17 15:59 BP 128/87 02/05/17 16:36 Pulse Ox 100 02/05/17 15:59 - Labs Result Diagrams: 02/05/17 11:30 02/05/17 11:30 Labs: Laboratory Results - last 24 hr 02/05/17 02/05/17 11:30 11:30 WBC 17.4 H RBC 3.51 L Hgb 9.5 L Hct 29.2 L MCV 83.4 MCH 27.0 MCHC 32.4 L RDW 19.7 H Plt Count 456 H MPV 7.7 Neut % (Auto) 86.2 H Lymph % (Auto) 8.6 L [place] % (Auto) 1.6 Eos % (Auto) 3.4 Baso % (Auto) 0.2 Neut # 15.0 H Lymph # 1.5 [place] # 0.3 Eos # 0.6 Baso # 0.0 Neutrophils % (Manual) 80 H Band Neutrophils % 5 H Lymphocytes % (Manual) 7 L Monocytes % (Manual) TEST NOT PERFORMED Eosinophils % (Manual) 7 H Basophils % (Manual) 1 Platelet Estimate Slightly increased H Anisocytosis (manual) Moderate Sodium 132 Potassium 3.6 Chloride 100 Carbon Dioxide 26 Anion Gap 9 L BUN 15 Creatinine 0.5 L Est GFR ( Amer) > 60 Est GFR (Non-Af Amer) > 60 Random Glucose 137 H Calcium 7.9 L Total Bilirubin 0.4 AST 36 ALT 43 Alkaline Phosphatase 106 Total Protein 7.8 Albumin 2.6 L Globulin 5.2 H Albumin/Globulin Ratio 0.5 L Assessment & Plan (1) Fever of unknown origin Assessment and Plan: for bone marrow Thursday please notify me prior to biopsy if bone marrow specimen will require specific infectious work up Status: Acute (2) Anemia Assessment and Plan: will check ferritin, retic count, b12, folate, FOBT to futher characterize likely chronic disease Status: Acute (3) Leukocytosis Assessment and Plan: predominant neutrophilia on antibiotics for bone marrow biopsy Thank you for this interesting consult. Status: Acute
[2017-02-06] MEDS: metroNIDAZOLE IV 500 mg/100 ml 500 MG/100 ML BAG IVPB SCH (05:29)
[2017-02-06] MEDS: Levothyroxine 88 MCG TAB PO SCH (07:05)
[2017-02-06 07:18] LABS: BASO # 0.1 K/uL (0.0-0.2); BASO % 0.3 % (0.0-2.0); EOS # 0.5 K/uL (0.0-0.7); EOS % 2.3 % (0.0-4.0); HEMATOCRIT 29.6 % (35.0-51.0); LYMPH # 1.8 K/uL (1.0-4.3); LYMPH % 8.6 % (20.0-40.0); MEAN CELL VOLUME 82.5 fL (80.0-94.0); MEAN CORPUSCULAR HEMOGLOBIN 27.1 pg (27.0-31.0); MEAN CORPUSCULAR HGB CONC 32.9 g/dL (33.0-37.0); MEAN PLATELET VOLUME 7.6 fL (7.2-11.7); MONO # 0.4 K/uL (0.0-0.8); MONO % 1.8 % (0.0-10.0); PLATELET COUNT 481 K/uL (130-400); RED CELL DISTRIBUTION WIDTH 19.8 % (11.5-14.5); WHITE BLOOD COUNT 20.9 K/uL (4.8-10.8)
[2017-02-06 07:35] LABS: CHLORIDE 100 mmol/L (98-107); POTASSIUM 4.4 mmol/L (3.6-5.2); SODIUM 132 mmol/L (132-148)
[2017-02-06 07:37] LABS: ALB/GLOB RATIO 0.5 (1.0-2.1); ALKALINE PHOSPHATASE 119 U/L (38-126); AST/SGOT 40 U/L (17-59); BILIRUBIN,TOTAL 0.4 mg/dL (0.2-1.3); CARBON DIOXIDE 25 mmol/L (22-30); GFR AFRICAN-AMERICAN > 60
[2017-02-06 07:38] LABS: ALT/SGPT 41 U/L (21-72); BLOOD UREA NITROGEN 15 mg/dL (9-20); GLUCOSE,RANDOM 86 mg/dL (75-110)
[2017-02-06 08:51] LABS: EOSINOPHIL 1 % (0-4); NEUTROPHIL 90 % (50-75); TOTAL CELLS COUNTED 100
[2017-02-06] MEDS: Saccharomyces Boulardi 250 mg Cap PO SCH ×2 (10:38→17:36)
[2017-02-06] MEDS: guaiFENesin 600 mg ER Tab PO SCH ×2 (10:38→17:36)
[2017-02-06] MEDS: Promethazine/Cod 6.25mg-10mg/5ml Syr UD PO PRN (13:48)
[2017-02-06] MEDS: Fluconazole IV 200mg/100 ml NS 100 ML IVPB SCH (14:40)
--- NOTE | 2017-02-06 14:42 | CP.PCM.PN ---
Subjective - Date & Time of Evaluation Date of Evaluation: 02/06/17 Time of Evaluation: 14:41 - Subjective Subjective: PGY1 Note for Dr. Delarosa HPI: 51 year old Croatian speaking male examined at bedside. Patient is continuing to complain of reoccurring night sweats and fevers. No other acute events over night. The fevers began again around 10 pm last night and were off and on. Currently he is asymptomatic and in good spirits. Patient states he is doing well asides from the fevers and sweating. He denies chest pain/SOB/C/N/V/D /C. Objective - Vital Signs/Intake and Output Vital Signs (last 24 hours): Temp Pulse Resp BP Pulse Ox 98.1 F 55 L 20 125/73 96 02/06/17 08:20 02/06/17 08:20 02/06/17 08:20 02/06/17 10:45 02/06/17 08:20 Intake and Output: 02/06/17 02/06/17 06:59 18:59 Intake Total 460 Balance 460 - Medications Medications: Current Medications Acetaminophen (Tylenol 325mg Tab) 650 mg PO Q6 PRN PRN Reason: Fever >100.4 F Last Admin: 02/06/17 10:46 Dose: 650 mg Amiodarone HCl (Cordarone) 200 mg PO BID [facility] Last Admin: 02/06/17 10:38 Dose: 200 mg Docusate Sodium (Colace) 100 mg PO TID [facility] Last Admin: 02/06/17 10:38 Dose: 100 mg Famotidine (Pepcid) 20 mg PO BID [facility] Last Admin: 02/06/17 10:38 Dose: 20 mg Guaifenesin (Mucinex La) 600 mg PO BID [facility] Last Admin: 02/06/17 10:38 Dose: 600 mg Fluconazole (Diflucan Iv 200 Mg/100 Ml Ns) 100 mls @ 100 mls/hr IVPB Q24H [facility] Last Admin: 02/05/17 16:36 Dose: 100 mls/hr Ipratropium [place] (Atrovent Hfa) 2 puff IH RQ6 PRN PRN Reason: Shortness of Breath Lactic Acid (Lac-Hydrin 12% Lotion (225 G)) 225 gm EXT Q1H PRN PRN Reason: Dry skin Last Admin: 02/04/17 18:34 Dose: 1 applic Levothyroxine Sodium (Synthroid) 88 mcg PO DAILY@0630 [facility] Last Admin: 02/06/17 07:05 Dose: 88 mcg Metoprolol Tartrate (Lopressor) 25 mg PO Q6H [facility] Last Admin: 02/06/17 10:45 Dose: 25 mg Ondansetron HCl (Zofran Inj) 4 mg IVP Q6H PRN PRN Reason: Nausea/Vomiting Promethazine HCl/Codeine (Phenergan/Codeine Oral Syrup) 5 ml PO Q4 PRN PRN Reason: Cough Last Admin: 02/06/17 13:48 Dose: 5 ml Saccharomyces Boulardii (Florastor) 250 mg PO BID [facility] Last Admin: 02/06/17 10:38 Dose: 250 mg - Labs Labs: 02/06/17 07:05 02/06/17 07:05 PT 13.2 SECONDS (9.7-12.2) H 01/20/17 19:37 INR 1.2 01/20/17 19:37 APTT 32 SECONDS (21-34) 01/20/17 19:37 - Constitutional Appears: Well, Non-toxic, No Acute Distress - Head Exam Head Exam: ATRAUMATIC, NORMAL INSPECTION, NORMOCEPHALIC - Eye Exam Eye Exam: EOMI - ENT Exam ENT Exam: Mucous Membranes Moist - Respiratory Exam Respiratory Exam: Clear to Ausculation Bilateral, NORMAL BREATHING PATTERN - Cardiovascular Exam Cardiovascular Exam: REGULAR RHYTHM. absent: Gallop, Irregular Rhythm, Murmur - GI/Abdominal Exam GI & Abdominal Exam: Soft. absent: Distended, Tenderness - Extremities Exam Extremities Exam: absent: Calf Tenderness, Joint Swelling - Neurological Exam Neurological Exam: Alert, Awake, Oriented x3 - Psychiatric Exam Psychiatric exam: Normal Affect, Normal Mood - Skin Skin Exam: Dry, Intact, Normal Color, Warm Assessment and Plan - Assessment and Plan (Free Text) Assessment: Leukocytosis * WBC 20.9 * ID (Jv) reccs: Diflucan 200 IV QD * CT of the chest, abd, pelvis = unremarkable * Malaria/babesiosis = Negative * ESR = 125 * CHAVA = Speckeled = Sjogrens, MCTD, Raynouds, Scleroderma * Will consider confirmatory Test * Testing C-ANCA, Q Fever, Sputum culture for TB Respiratory infection Pulm (Mike): Bronch = Marcella * Diflucan 200 IV QD Fever T= 100.8 Heme ([place]) * Bone Marrow Bx Thursday - /U Prophylactic measure SCDs Ambulating Pepcid 20mg PO BID Florastor 250mg PO BID Lovenox 30mg SC Q12
--- NOTE | 2017-02-06 16:32 | CP.PCM.PN ---
Subjective - Date & Time of Evaluation Date of Evaluation: 02/06/17 Time of Evaluation: 04:15 - Subjective Subjective: dictated Objective - Vital Signs/Intake and Output Vital Signs (last 24 hours): Temp Pulse Resp BP Pulse Ox 98.1 F 55 L 20 120/69 96 02/06/17 08:20 02/06/17 08:20 02/06/17 08:20 02/06/17 14:54 02/06/17 08:20 Intake and Output: 02/06/17 02/06/17 06:59 18:59 Intake Total 460 Balance 460 - Medications Medications: Current Medications Acetaminophen (Tylenol 325mg Tab) 650 mg PO Q6 PRN PRN Reason: Fever >100.4 F Last Admin: 02/06/17 10:46 Dose: 650 mg Amiodarone HCl (Cordarone) 200 mg PO BID [facility] Last Admin: 02/06/17 10:38 Dose: 200 mg Docusate Sodium (Colace) 100 mg PO TID [facility] Last Admin: 02/06/17 14:58 Dose: Not Given Famotidine (Pepcid) 20 mg PO BID [facility] Last Admin: 02/06/17 10:38 Dose: 20 mg Guaifenesin (Mucinex La) 600 mg PO BID [facility] Last Admin: 02/06/17 10:38 Dose: 600 mg Fluconazole (Diflucan Iv 200 Mg/100 Ml Ns) 100 mls @ 100 mls/hr IVPB Q24H [facility] Last Admin: 02/06/17 14:40 Dose: 100 mls/hr Ipratropium [place] (Atrovent Hfa) 2 puff IH RQ6 PRN PRN Reason: Shortness of Breath Lactic Acid (Lac-Hydrin 12% Lotion (225 G)) 225 gm EXT Q1H PRN PRN Reason: Dry skin Last Admin: 02/04/17 18:34 Dose: 1 applic Levothyroxine Sodium (Synthroid) 88 mcg PO DAILY@0630 [facility] Last Admin: 02/06/17 07:05 Dose: 88 mcg Metoprolol Tartrate (Lopressor) 25 mg PO Q6H [facility] Last Admin: 02/06/17 14:54 Dose: 25 mg Ondansetron HCl (Zofran Inj) 4 mg IVP Q6H PRN PRN Reason: Nausea/Vomiting Promethazine HCl/Codeine (Phenergan/Codeine Oral Syrup) 5 ml PO Q4 PRN PRN Reason: Cough Last Admin: 02/06/17 13:48 Dose: 5 ml Saccharomyces Boulardii (Florastor) 250 mg PO BID [facility] Last Admin: 02/06/17 10:38 Dose: 250 mg - Labs Labs: 02/06/17 07:05 02/06/17 07:05 PT 13.2 SECONDS (9.7-12.2) H 01/20/17 19:37 INR 1.2 01/20/17 19:37 APTT 32 SECONDS (21-34) 01/20/17 19:37 Assessment and Plan (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
[2017-02-07] MEDS: Levothyroxine 88 MCG TAB PO SCH (05:50)
[2017-02-07 07:41] LABS: BASO # 0.1 K/uL (0.0-0.2); BASO % 0.3 % (0.0-2.0); EOS # 0.8 K/uL (0.0-0.7); EOS % 3.2 % (0.0-4.0); HEMATOCRIT 29.6 % (35.0-51.0); LYMPH # 2.1 K/uL (1.0-4.3); LYMPH % 8.6 % (20.0-40.0); MEAN CELL VOLUME 82.9 fL (80.0-94.0); MEAN CORPUSCULAR HEMOGLOBIN 28.2 pg (27.0-31.0); MEAN CORPUSCULAR HGB CONC 34.1 g/dL (33.0-37.0); MEAN PLATELET VOLUME 7.5 fL (7.2-11.7); MONO # 0.3 K/uL (0.0-0.8); MONO % 1.3 % (0.0-10.0); PLATELET COUNT 492 K/uL (130-400); RED CELL DISTRIBUTION WIDTH 19.6 % (11.5-14.5); WHITE BLOOD COUNT 24.4 K/uL (4.8-10.8)
[2017-02-07 08:19] LABS: CHLORIDE 100 mmol/L (98-107); POTASSIUM 4.2 mmol/L (3.6-5.2); SODIUM 132 mmol/L (132-148)
[2017-02-07 08:21] LABS: GFR AFRICAN-AMERICAN > 60
[2017-02-07 08:22] LABS: ALB/GLOB RATIO 0.5 (1.0-2.1); ALKALINE PHOSPHATASE 112 U/L (38-126); ALT/SGPT 33 U/L (21-72); AST/SGOT 33 U/L (17-59); BILIRUBIN,TOTAL 0.4 mg/dL (0.2-1.3); BLOOD UREA NITROGEN 19 mg/dL (9-20); CALCIUM 8.4 mg/dl (8.6-10.4); CARBON DIOXIDE 26 mmol/L (22-30); GLUCOSE,RANDOM 81 mg/dL (75-110); TOTAL PROTEIN 8.2 g/dL (6.3-8.3)
--- NOTE | 2017-02-07 09:15 | CP.PCM.PN ---
Subjective - Date & Time of Evaluation Date of Evaluation: 02/07/17 Time of Evaluation: 09:00 - Subjective Subjective: Patient was seen and examined by me. This is my first time seeing patient so I went over the previous notes and discussed with the resident. This patient has been here for some time now. He initally came on 01/01 nausea and blurry vision. Most recently he has had a bronchoscopy due to right lung imaging findings and recently has been on Zyvox, Meropenom, and also Fluconzaole. The BAL washings showed that there was + Marcella albican, + Coag negative staph. Today his WBC increased from 20 to 24. There was also a Tmax of 100.9 this morning. When I spoke with the patient he explains he does feel fever, chills, night sweats, and also as well as coughing. He says the cough is non productive when I asked him. He reports some shortness of breath earlier but not when I saw him. He denies nausea, denies vommitting, denies problems going to bathroom such as urinating or BMs. Denied headache. Denied palpitations. Objective - Vital Signs/Intake and Output Vital Signs (last 24 hours): Temp Pulse Resp BP Pulse Ox 98.4 F 81 20 105/60 98 02/07/17 05:52 02/07/17 03:17 02/06/17 20:50 02/07/17 03:16 02/06/17 20:50 Intake and Output: 02/07/17 02/07/17 06:59 18:59 Intake Total 560 Balance 560 - Medications Medications: Current Medications Acetaminophen (Tylenol 325mg Tab) 650 mg PO Q6 PRN PRN Reason: Fever >100.4 F Last Admin: 02/07/17 03:16 Dose: 650 mg Amiodarone HCl (Cordarone) 200 mg PO BID [facility] Last Admin: 02/06/17 17:36 Dose: 200 mg Docusate Sodium (Colace) 100 mg PO TID [facility] Last Admin: 02/06/17 17:36 Dose: 100 mg Famotidine (Pepcid) 20 mg PO BID [facility] Last Admin: 02/06/17 17:36 Dose: 20 mg Guaifenesin (Mucinex La) 600 mg PO BID [facility] Last Admin: 02/06/17 17:36 Dose: 600 mg Fluconazole (Diflucan Iv 200 Mg/100 Ml Ns) 100 mls @ 100 mls/hr IVPB Q24H [facility] Last Admin: 02/06/17 14:40 Dose: 100 mls/hr Ipratropium [place] (Atrovent Hfa) 2 puff IH RQ6 PRN PRN Reason: Shortness of Breath Lactic Acid (Lac-Hydrin 12% Lotion (225 G)) 225 gm EXT Q1H PRN PRN Reason: Dry skin Last Admin: 02/04/17 18:34 Dose: 1 applic Levothyroxine Sodium (Synthroid) 88 mcg PO DAILY@0630 [facility] Last Admin: 02/07/17 05:50 Dose: 88 mcg Metoprolol Tartrate (Lopressor) 25 mg PO Q6H [facility] Last Admin: 02/07/17 03:16 Dose: 25 mg Ondansetron HCl (Zofran Inj) 4 mg IVP Q6H PRN PRN Reason: Nausea/Vomiting Promethazine HCl/Codeine (Phenergan/Codeine Oral Syrup) 5 ml PO Q4 PRN PRN Reason: Cough Last Admin: 02/06/17 13:48 Dose: 5 ml Saccharomyces Boulardii (Florastor) 250 mg PO BID [facility] Last Admin: 02/06/17 17:36 Dose: 250 mg - Labs Labs: 02/07/17 07:12 02/07/17 07:12 PT 13.2 SECONDS (9.7-12.2) H 01/20/17 19:37 INR 1.2 01/20/17 19:37 APTT 32 SECONDS (21-34) 01/20/17 19:37 - Constitutional Appears: No Acute Distress, Unkempt, Chronically Ill - Head Exam Head Exam: NORMAL INSPECTION, NORMOCEPHALIC - Eye Exam Eye Exam: EOMI, Normal appearance - ENT Exam ENT Exam: Mucous Membranes Moist - Respiratory Exam Respiratory Exam: Decreased Breath Sounds, Clear to Ausculation Bilateral, NORMAL BREATHING PATTERN Additional comments: Decreased breath sounds Right lung - GI/Abdominal Exam GI & Abdominal Exam: Soft, Normal Bowel Sounds - Neurological Exam Neurological Exam: Alert, Awake, Oriented x3 Neuro motor strength exam: Left Upper Extremity: 5, Right Upper Extremity: 5 - Psychiatric Exam Psychiatric exam: Normal Affect, Normal Mood - Skin Skin Exam: Normal Color, Warm Assessment and Plan - Assessment and Plan (Free Text) Assessment: Leukocytosis 02/07: WBC is higher again. Will recheck blood cultures again. The patient was on Diflucan IV, however in light of these fevers as well as recent BAL results will restart the meropenom IV and maybe Zyvox as well. He has had multiple cultures taken before. Hematology is planning for a bone marror biopsy on Thursday. * Bronch - yeast and Coag negative staph from Bronchial washing * WBC: 18.2 * Temp 100.5 * Urine culture negative * ID (Jv) reccs: Zyvox 600mg IV Q12, Meropenem 1g IV Q8, Micafungin 100mg IV QD Respiratory infection 02/07: As reported before the patient has had a recent bronchoscopy that showed Yeast and Coag nega staph ID (Mangia) recommends to hold INH given that AFB is negative and quantiferon indeterminate ID (Jv) reccs: Zyvox 600mg IV Q12, Meropenem 1g IV Q8, Micafungin 100mg IV QD Imaging: * Barium swallow: No aspiration * 01/19 CXR: bibasilar opacities, opacitiy in Right upper lobe, small b/l pleural effusion * 01/21: Chest CT: interstital pneumonitis Vs collagen vascular disease Vs Cryptogenic organizing pneumonia V sarcoid * 01/26: Chest CT: B/l LL opacities Fever 02/07: Again spiking elevated temperatures. On IV abx, as mentioned above the results of the bronchoscopy. Pending bone marrow biopsy. There is also pending an autoimmune work up as well including: DS DNA, SCL 70, Anti Montelongo, SS A and SS B, studies for cocidomycodies and historplasmosis. T= 100.5 Patient refuses hypothermic blanket Anemia 02/07: Stable today. Hgb 10.1, continue to monitor. History of hypothyroidism Continue home medication: * Synthroid 88mcg PO daily * TSH normal Vtach 02/07: Per review of his telemetry it has been stable for past 24 hrs. HR is 70s to 80s. Patient Had Rapid called on 01/26 for Vtach - was asx Cath on 01/27 - Normal coronaries, normal EF by echo Started on Metoprolol 25 Q6H Echo - EF 65-70 Elevated trop today 0.2050 trending down Stopped therapeutic Lovenox 01/30 Another episode of Asx Vtach (13 beats), Cards (Voudouris) started Cordarone 200mg PO BID Pancreatic Lesion CT Pancreas (01/19): redemonstrated pancreatic mass. 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
[2017-02-07] MEDS: Saccharomyces Boulardi 250 mg Cap PO SCH ×2 (09:25→18:35)
[2017-02-07] MEDS: guaiFENesin 600 mg ER Tab PO SCH ×2 (09:25→18:37)
[2017-02-07 09:45] LABS: EOSINOPHIL 4 % (0-4); NEUTROPHIL 87 % (50-75); TOTAL CELLS COUNTED 100
[2017-02-07] MEDS: Ceftaroline 600 MG in Sodium Chloride 0.9% 100 ML IVPB SCH (13:19)
[2017-02-07] MEDS: Fluconazole IV 200mg/100 ml NS 100 ML IVPB SCH (16:41)
[2017-02-08] MEDS: Ceftaroline 600 MG in Sodium Chloride 0.9% 100 ML IVPB SCH ×2 (00:27→12:15)
--- NOTE | 2017-02-08 03:51 | PN ---
DATE: SUBJECTIVE: Matthew Castano continues to have fevers off and on, it is very unclear. His white count has increased now and he had 100.9 last night. PHYSICAL EXAMINATION: HEENT: Head is atraumatic and normocephalic. NECK: Supple. LUNGS: Have fine crackles. HEART: S1 and S2 is regular. ABDOMEN: Soft and nontender. No guarding. No rigidity present. EXTREMITIES: Have no edema, clubbing, or cyanosis. His ankles are not swollen right now. I have ordered septic workup again and we will get an LDH level tomorrow and I told him that since I am not able to figure out it may be worthwhile if he could be [facility] and we reanalyzed as his white count goes ups and downs, I do think the most problem is with the lungs, but nothing has been availed from pathology or by the workup so far done. He also need vasculitis workup and so I would like to see another new look of this patient. Otherwise, I have started him on Teflaro today and placed the Diflucan on and we will follow. Kofi Carias MD
[2017-02-08] MEDS: Levothyroxine 88 MCG TAB PO SCH (05:33)
--- NOTE | 2017-02-08 08:07 | CP.PCM.PN ---
Addendum entered and electronically signed by Juan Francisco Gonzales DO 02/08/17 09: 03: Patient seen and examined at bedside. Doing well with no complaints at this time. Sitting up watching TV and eating. He was concerned about the BM biopsy and was asking if it would hurt. I told him hat the procedure is painful but we would do our best to control his pain. I told him it would take some more time for the antifungals to take effect. He did have a fever last night associated with sweating. Patient understood and agreed with the plan. Original Note: <Juan Francisco Gonzales - Last Filed: 02/08/17 08:31> Subjective - Date & Time of Evaluation Date of Evaluation: 02/08/17 Time of Evaluation: 08:06 - Subjective Subjective: PGY1 Note for Dr. Gresham HPI: Objective - Vital Signs/Intake and Output Vital Signs (last 24 hours): Temp Pulse Resp BP Pulse Ox 100.6 F H 68 20 110/70 98 02/07/17 23:50 02/08/17 03:55 02/07/17 23:50 02/08/17 02:03 02/07/17 23:50 Intake and Output: 02/08/17 02/08/17 06:59 18:59 Intake Total 740 Balance 740 - Medications Medications: Current Medications Acetaminophen (Tylenol 325mg Tab) 650 mg PO Q6 PRN PRN Reason: Fever >100.4 F Last Admin: 02/07/17 18:36 Dose: 650 mg Amiodarone HCl (Cordarone) 200 mg PO BID [facility] Last Admin: 02/07/17 18:37 Dose: 200 mg Docusate Sodium (Colace) 100 mg PO TID [facility] Last Admin: 02/07/17 18:39 Dose: 100 mg Famotidine (Pepcid) 20 mg PO BID [facility] Last Admin: 02/07/17 18:37 Dose: 20 mg Guaifenesin (Mucinex La) 600 mg PO BID [facility] Last Admin: 02/07/17 18:37 Dose: 600 mg Fluconazole (Diflucan Iv 200 Mg/100 Ml Ns) 100 mls @ 100 mls/hr IVPB Q24H [facility] Last Admin: 02/07/17 16:41 Dose: 100 mls/hr Ceftaroline Fosamil 600 mg/ (Sodium Chloride) 100 mls @ 100 mls/hr IVPB Q12H [facility] Last Admin: 02/08/17 00:27 Dose: 100 mls/hr Ipratropium [place] (Atrovent Hfa) 2 puff IH RQ6 PRN PRN Reason: Shortness of Breath Lactic Acid (Lac-Hydrin 12% Lotion (225 G)) 225 gm EXT Q1H PRN PRN Reason: Dry skin Last Admin: 02/04/17 18:34 Dose: 1 applic Levothyroxine Sodium (Synthroid) 88 mcg PO DAILY@0630 [facility] Last Admin: 02/08/17 05:33 Dose: 88 mcg Metoprolol Tartrate (Lopressor) 25 mg PO Q6H [facility] Last Admin: 02/08/17 02:03 Dose: 25 mg Ondansetron HCl (Zofran Inj) 4 mg IVP Q6H PRN PRN Reason: Nausea/Vomiting Promethazine HCl/Codeine (Phenergan/Codeine Oral Syrup) 5 ml PO Q4 PRN PRN Reason: Cough Last Admin: 02/06/17 13:48 Dose: 5 ml Saccharomyces Boulardii (Florastor) 250 mg PO BID [facility] Last Admin: 02/07/17 18:35 Dose: 250 mg - Labs Labs: 02/07/17 07:12 02/07/17 07:12 PT 13.2 SECONDS (9.7-12.2) H 01/20/17 19:37 INR 1.2 01/20/17 19:37 APTT 32 SECONDS (21-34) 01/20/17 19:37 - Constitutional Appears: Well, Non-toxic, No Acute Distress - Head Exam Head Exam: ATRAUMATIC, NORMAL INSPECTION, NORMOCEPHALIC - Eye Exam Eye Exam: EOMI - ENT Exam ENT Exam: Mucous Membranes Moist - Respiratory Exam Respiratory Exam: Rhonchi (LLL) - Cardiovascular Exam Cardiovascular Exam: REGULAR RHYTHM. absent: Gallop, Rubs, Murmur - GI/Abdominal Exam GI & Abdominal Exam: Soft, Normal Bowel Sounds. absent: Distended, Tenderness - Neurological Exam Neurological Exam: Alert, Awake, Oriented x3 - Psychiatric Exam Psychiatric exam: Normal Affect, Normal Mood - Skin Skin Exam: Dry, Intact, Normal Color, Warm Assessment and Plan - Assessment and Plan (Free Text) Assessment: Leukocytosis * Bronch - Marcella and Coag negative staph from Bronchial washing * WBC: 20.9 * Temp 101.6 * Blood/Urine Culture - F/U * ID (Jv) reccs: Teflero 600mg IV Q12, Diflucan 200mg IV QD * Heme ([place]) - BM bx on thursday Fever * F/U BM BX * Autoimmune Workup - F/U * dsDNA * SCL 70 * Anti-Montelongo * SS A * SS B * Cocidio * Histo * CHAVA - 1:160, Speckled H, + ANA6 * C-ANCA * P-ANCA * MPO Ab - <1 * PR3 - <1 * T= 101.5 * Patient refuses hypothermic blanket History of hypothyroidism * Continue home medication: * Synthroid 88mcg PO daily * TSH normal Vtach * Stable * Patient Had Rapid called on 01/26 for Vtach - was asx * Cath on 01/27 - Normal coronaries, normal EF by echo * Started on Metoprolol 25 Q6H * Echo - EF 65-70 * Stopped therapeutic Lovenox * 01/30 Another episode of Asx Vtach (13 beats), Cards (Voudouris) started Cordarone 200mg PO BID Hx of TB PPX * On INH at admission, no longer on anything * Sputum x 3 negative * Repeat CT Chest 01/26/17 shows no change when compared to 01/20/17 <Ian Gresham - Last Filed: 02/08/17 16:24> Objective - Vital Signs/Intake and Output Vital Signs (last 24 hours): Temp Pulse Resp BP Pulse Ox 98 F 62 20 111/68 98 02/08/17 10:21 02/08/17 10:21 02/08/17 10:21 02/08/17 14:24 02/08/17 10:21 Intake and Output: 02/08/17 02/08/17 06:59 18:59 Intake Total 740 Balance 740 - Medications Medications: Current Medications Acetaminophen (Tylenol 325mg Tab) 650 mg PO Q6 PRN PRN Reason: Fever >100.4 F Last Admin: 02/07/17 18:36 Dose: 650 mg Amiodarone HCl (Cordarone) 200 mg PO BID [facility] Last Admin: 02/08/17 10:06 Dose: 200 mg Docusate Sodium (Colace) 100 mg PO TID [facility] Last Admin: 02/08/17 13:21 Dose: 100 mg Famotidine (Pepcid) 20 mg PO BID [facility] Last Admin: 02/08/17 10:07 Dose: 20 mg Guaifenesin (Mucinex La) 600 mg PO BID [facility] Last Admin: 02/08/17 10:06 Dose: 600 mg Fluconazole (Diflucan Iv 200 Mg/100 Ml Ns) 100 mls @ 100 mls/hr IVPB Q24H [facility] Last Admin: 02/08/17 14:25 Dose: 100 mls/hr Ceftaroline Fosamil 600 mg/ (Sodium Chloride) 100 mls @ 100 mls/hr IVPB Q12H [facility] Last Admin: 02/08/17 12:15 Dose: 100 mls/hr Ipratropium [place] (Atrovent Hfa) 2 puff IH RQ6 PRN PRN Reason: Shortness of Breath Lactic Acid (Lac-Hydrin 12% Lotion (225 G)) 225 gm EXT Q1H PRN PRN Reason: Dry skin Last Admin: 02/04/17 18:34 Dose: 1 applic Levothyroxine Sodium (Synthroid) 88 mcg PO DAILY@0630 [facility] Last Admin: 02/08/17 05:33 Dose: 88 mcg Metoprolol Tartrate (Lopressor) 25 mg PO Q6H [facility] Last Admin: 02/08/17 14:24 Dose: 25 mg Ondansetron HCl (Zofran Inj) 4 mg IVP Q6H PRN PRN Reason: Nausea/Vomiting Promethazine HCl/Codeine (Phenergan/Codeine Oral Syrup) 5 ml PO Q4 PRN PRN Reason: Cough Last Admin: 02/06/17 13:48 Dose: 5 ml Saccharomyces Boulardii (Florastor) 250 mg PO BID [facility] Last Admin: 02/08/17 10:05 Dose: 250 mg - Labs Labs: 02/08/17 08:41 02/08/17 08:41 PT 13.2 SECONDS (9.7-12.2) H 01/20/17 19:37 INR 1.2 01/20/17 19:37 APTT 32 SECONDS (21-34) 01/20/17 19:37 Attending/Attestation - Attestation I have personally seen and examined this patient.: Yes I have fully participated in the care of the patient.: Yes I have reviewed all pertinent clinical information, including history, physical exam and plan: Yes Notes (Text): 02/08/17 16:20 Patient was seen and examined on 02/08/17 at 9 AM ROS: Still with occasional cough productive of small amounts of white material Subjective fever at night with sweats Exam: General: AAOx3, NAD HEENT: NCA, EOMI, PERRLA, NO cervical/supraclavicular/submandibular lymphadenopathy, NO pharyngeal erythema/exudate, Mucous Membranes are moist, Nasal Turbinates are nonedematous/nonerythematous Cardio: NS1 and NS2, NO M/R/G Respiratory: Faint inspiratory bibasilar inspiratory crackles GI: BSx4, Soft, NT, ND, NO HSM, NO guarding/rebound tenderness Ext: mild nonpitting edema involving the bilateral ankles, Pulses are strong and equal, Capillary Refill is 2 seconds Neuro: CN II through XII are grossly intact Assessments: Hx Elevated Troponin: likely secondary to episode of V Tach. Cardiac Cath performed by Dr. Pryor 01/27/17 showed clean coronaries. Therapeutic Lovenox was discontinued. Luekocytosis with Fever: repeat blood cultures negative, Sputum x [address] negative[address] with ID Dr. Calzada who was coverning for Dr. Carias and he recommended Bronchial Washing with cultures. Spoke with [facility] Dr. Mckeon (as heel varnisher Dr. Barrow has not responded to our calls to see this patient) and he had planned to perform bronchoscopy for morning 01/28/17. However , OR schedule did not free up, therefore Dr. Mckeon to schedule the bronchoscopy/ bronchial washing for Thursday01/30/17 and this was performed: culture showed Marcella albicans and Coag Neg Staph and Sputum AFB is negative. He was started on Diflucan 200 mg IV on 02/03/17. F/U repeat Blood and Urine Cultures from . For Bone Marrow Bx with Heme/Onc Dr. Alexandre on Thursday02/10/17 (Leukemia?). F /U Autoimmune Workup. Hyponatremia: resolved. Monitor Hx Bacteremia: repeat cultures have been negative to date. Hx of TB Prophylaxis: he was on INH upon admission but currently not on anything. Sputum x [address] Chest 01/26/17 shows no change when compared to 01/20/17 (please see full reports). 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 Aspirin Hx Constipation: resolved Anemia: stable Hx Hypothyroidism: levothyroxine Hx Vertigo: resolved and was likely secondary to the Minocycline that patient was on at the time of admission and once discontinued, this issue resolved and has not recurred Hx Diarrhea: resolved Hx Bilateral Lower Leg Edema: duplex are negative, much improved and now mild non-pitting edema involving the ankles Hx Elevated LFTs: resolved Ian Gresham D.O.
[2017-02-08 09:07] LABS: BASO % 0.2 % (0.0-2.0); EOS # 0.5 K/uL (0.0-0.7); EOS % 2.8 % (0.0-4.0); HEMATOCRIT 29.7 % (35.0-51.0); LYMPH # 1.9 K/uL (1.0-4.3); LYMPH % 10.6 % (20.0-40.0); MEAN CELL VOLUME 82.6 fL (80.0-94.0); MEAN CORPUSCULAR HEMOGLOBIN 26.9 pg (27.0-31.0); MEAN CORPUSCULAR HGB CONC 32.6 g/dL (33.0-37.0); MEAN PLATELET VOLUME 7.7 fL (7.2-11.7); MONO # 0.4 K/uL (0.0-0.8); MONO % 2.4 % (0.0-10.0); RED CELL DISTRIBUTION WIDTH 19.8 % (11.5-14.5); WHITE BLOOD COUNT 18.4 K/uL (4.8-10.8)
[2017-02-08 09:35] LABS: ALB/GLOB RATIO 0.5 (1.0-2.1); ALKALINE PHOSPHATASE 93 U/L (38-126); ALT/SGPT 34 U/L (21-72); AST/SGOT 31 U/L (17-59); BILIRUBIN,TOTAL 0.3 mg/dL (0.2-1.3); BLOOD UREA NITROGEN 17 mg/dL (9-20); CALCIUM 8.1 mg/dl (8.6-10.4); CARBON DIOXIDE 26 mmol/L (22-30); CHLORIDE 99 mmol/L (98-107); GFR AFRICAN-AMERICAN > 60; GLUCOSE,RANDOM 89 mg/dL (75-110); POTASSIUM 4.2 mmol/L (3.6-5.2); SODIUM 130 mmol/L (132-148); TOTAL PROTEIN 7.6 g/dL (6.3-8.3)
[2017-02-08] MEDS: Saccharomyces Boulardi 250 mg Cap PO SCH ×2 (10:05→18:37)
[2017-02-08] MEDS: guaiFENesin 600 mg ER Tab PO SCH ×2 (10:06→18:37)
[2017-02-08] MEDS: Fluconazole IV 200mg/100 ml NS 100 ML IVPB SCH (14:25)
[2017-02-09] MEDS: Ceftaroline 600 MG in Sodium Chloride 0.9% 100 ML IVPB SCH (00:03)
[2017-02-09] MEDS: Levothyroxine 88 MCG TAB PO SCH (05:54)
[2017-02-09 08:23] LABS: BASO % 0.1 % (0.0-2.0); EOS # 0.8 K/uL (0.0-0.7); EOS % 3.6 % (0.0-4.0); HEMATOCRIT 28.9 % (35.0-51.0); LYMPH % 9.1 % (20.0-40.0); MEAN CELL VOLUME 83.4 fL (80.0-94.0); MEAN CORPUSCULAR HEMOGLOBIN 27.1 pg (27.0-31.0); MEAN CORPUSCULAR HGB CONC 32.5 g/dL (33.0-37.0); MEAN PLATELET VOLUME 7.7 fL (7.2-11.7); MONO # 0.4 K/uL (0.0-0.8); MONO % 1.6 % (0.0-10.0); PLATELET COUNT 471 K/uL (130-400); WHITE BLOOD COUNT 22.3 K/uL (4.8-10.8)
[2017-02-09 08:50] LABS: CHLORIDE 101 mmol/L (98-107); SODIUM 133 mmol/L (132-148)
[2017-02-09 08:52] LABS: ALB/GLOB RATIO 0.5 (1.0-2.1); ALKALINE PHOSPHATASE 102 U/L (38-126); AST/SGOT 34 U/L (17-59); BILIRUBIN,TOTAL 0.4 mg/dL (0.2-1.3); CARBON DIOXIDE 27 mmol/L (22-30); GFR AFRICAN-AMERICAN > 60; TOTAL PROTEIN 7.9 g/dL (6.3-8.3)
[2017-02-09 08:53] LABS: ALT/SGPT 38 U/L (21-72); BLOOD UREA NITROGEN 18 mg/dL (9-20); CALCIUM 7.8 mg/dl (8.6-10.4); GLUCOSE,RANDOM 84 mg/dL (75-110)
--- NOTE | 2017-02-09 08:54 | CP.PCM.PN ---
<Juan Francisco Gonzales - Last Filed: 02/09/17 10:00> Subjective - Date & Time of Evaluation Date of Evaluation: 02/09/17 Time of Evaluation: 08:53 - Subjective Subjective: PGY1 Note for Dr. Gresham HPI: 51 y/o Persian speaking male examined at bedside. Patient continues to complain of recurring night time fevers and night sweats. Upon exam patient requested a new gown because he "soaked through" his last one. Patient was diaphoretic when examined and skin was clammy to touch. Denies any other acute events over night. Denies chest pain, SOB, Abdominal pain, N/V/D/C. Patient was nervous about his Bx on Thursday. Objective - Vital Signs/Intake and Output Vital Signs (last 24 hours): Temp Pulse Resp BP Pulse Ox 98.4 F 62 20 115/67 98 02/09/17 07:50 02/09/17 07:50 02/09/17 07:50 02/09/17 07:50 02/09/17 07:50 Intake and Output: 02/09/17 02/09/17 06:59 18:59 Intake Total 400 Balance 400 - Medications Medications: Current Medications Acetaminophen (Tylenol 325mg Tab) 650 mg PO Q6 PRN PRN Reason: Fever >100.4 F Last Admin: 02/08/17 23:06 Dose: 650 mg Amiodarone HCl (Cordarone) 200 mg PO BID [facility] Last Admin: 02/08/17 18:37 Dose: 200 mg Docusate Sodium (Colace) 100 mg PO TID [facility] Last Admin: 02/08/17 18:37 Dose: 100 mg Famotidine (Pepcid) 20 mg PO BID [facility] Last Admin: 02/08/17 18:37 Dose: 20 mg Guaifenesin (Mucinex La) 600 mg PO BID [facility] Last Admin: 02/08/17 18:37 Dose: 600 mg Fluconazole (Diflucan Iv 200 Mg/100 Ml Ns) 100 mls @ 100 mls/hr IVPB Q24H [facility] Last Admin: 02/08/17 14:25 Dose: 100 mls/hr Ceftaroline Fosamil 600 mg/ (Sodium Chloride) 100 mls @ 100 mls/hr IVPB Q12H [facility] Last Admin: 02/09/17 00:03 Dose: 100 mls/hr Ipratropium [place] (Atrovent Hfa) 2 puff IH RQ6 PRN PRN Reason: Shortness of Breath Lactic Acid (Lac-Hydrin 12% Lotion (225 G)) 225 gm EXT Q1H PRN PRN Reason: Dry skin Last Admin: 02/04/17 18:34 Dose: 1 applic Levothyroxine Sodium (Synthroid) 88 mcg PO DAILY@0630 [facility] Last Admin: 02/09/17 05:54 Dose: 88 mcg Metoprolol Tartrate (Lopressor) 25 mg PO Q6H [facility] Last Admin: 02/09/17 03:53 Dose: 25 mg Ondansetron HCl (Zofran Inj) 4 mg IVP Q6H PRN PRN Reason: Nausea/Vomiting Promethazine HCl/Codeine (Phenergan/Codeine Oral Syrup) 5 ml PO Q4 PRN PRN Reason: Cough Last Admin: 02/06/17 13:48 Dose: 5 ml Saccharomyces Boulardii (Florastor) 250 mg PO BID [facility] Last Admin: 02/08/17 18:37 Dose: 250 mg - Labs Labs: 02/09/17 08:16 02/08/17 08:41 PT 13.2 SECONDS (9.7-12.2) H 01/20/17 19:37 INR 1.2 01/20/17 19:37 APTT 32 SECONDS (21-34) 01/20/17 19:37 - Constitutional Appears: Well, Non-toxic, No Acute Distress - Head Exam Head Exam: ATRAUMATIC, NORMAL INSPECTION - Eye Exam Eye Exam: EOMI - ENT Exam ENT Exam: Mucous Membranes Moist - Respiratory Exam Respiratory Exam: Clear to Ausculation Bilateral, NORMAL BREATHING PATTERN - Cardiovascular Exam Cardiovascular Exam: REGULAR RHYTHM - GI/Abdominal Exam GI & Abdominal Exam: Soft. absent: Distended, Tenderness - Neurological Exam Neurological Exam: Alert, Awake, Oriented x3 - Psychiatric Exam Psychiatric exam: Normal Affect, Normal Mood - Skin Skin Exam: Dry, Intact, Normal Color, Warm Assessment and Plan - Assessment and Plan (Free Text) Assessment: Leukocytosis * Bronch - Marcella and Coag negative staph from Bronchial washing * WBC 22 * Temp 101.5 * Blood culture - F/U * Urine culture negative * ID (Jv) reccs: Teflero 600mg IV Q12, Diflucan 200mg IV QD * Heme ([place]) - BM bx on thursday Fever * F/U BM BX * Autoimmune Workup - F/U * dsDNA * SCL 70 * Anti-Montelongo * SS A * SS B * Cocidio * Histo * CHAVA - 1:160, Speckled H, + ANA6 * C-ANCA * P-ANCA * MPO Ab - <1 * PR3 - <1 * T= 101.5 * Patient refuses hypothermic blanket History of hypothyroidism * Continue home medication: * Synthroid 88mcg PO daily * TSH normal Vtach * Stable * Patient Had Rapid called on 01/26 for Vtach - was asx * Cath on 01/27 - Normal coronaries, normal EF by echo * Started on Metoprolol 25 Q6H * Echo - EF 65-70 * Stopped therapeutic Lovenox * 01/30 Another episode of Asx Vtach (13 beats), Cards (Voudouris) started Cordarone 200mg PO BID Hx of TB PPX * On INH at admission, no longer on anything * Sputum x 3 negative * Repeat CT Chest 01/26/17 shows no change when compared to 01/20/17 <Ian Gresham - Last Filed: 02/09/17 18:51> Objective - Vital Signs/Intake and Output Vital Signs (last 24 hours): Temp Pulse Resp BP Pulse Ox 98.4 F 66 20 107/61 99 02/09/17 15:17 02/09/17 15:17 02/09/17 15:17 02/09/17 16:00 02/09/17 15:17 Intake and Output: 02/09/17 02/09/17 06:59 18:59 Intake Total 400 Balance 400 - Medications Medications: Current Medications Acetaminophen (Tylenol 325mg Tab) 650 mg PO Q6 PRN PRN Reason: Fever >100.4 F Last Admin: 02/09/17 11:23 Dose: 650 mg Amiodarone HCl (Cordarone) 200 mg PO BID [facility] Last Admin: 02/09/17 17:42 Dose: 200 mg Docusate Sodium (Colace) 100 mg PO TID [facility] Last Admin: 02/09/17 17:41 Dose: 100 mg Famotidine (Pepcid) 20 mg PO BID [facility] Last Admin: 02/09/17 17:41 Dose: 20 mg Guaifenesin (Mucinex La) 600 mg PO BID [facility] Last Admin: 02/09/17 17:42 Dose: 600 mg Fluconazole (Diflucan Iv 200 Mg/100 Ml Ns) 100 mls @ 100 mls/hr IVPB Q24H [facility] Last Admin: 02/09/17 17:40 Dose: 100 mls/hr Ceftaroline Fosamil 600 mg/ (Sodium Chloride) 100 mls @ 100 mls/hr IVPB Q12H [facility] Last Admin: 02/09/17 00:03 Dose: 100 mls/hr Ipratropium [place] (Atrovent Hfa) 2 puff IH RQ6 PRN PRN Reason: Shortness of Breath Lactic Acid (Lac-Hydrin 12% Lotion (225 G)) 225 gm EXT Q1H PRN PRN Reason: Dry skin Last Admin: 02/04/17 18:34 Dose: 1 applic Levothyroxine Sodium (Synthroid) 88 mcg PO DAILY@0630 [facility] Last Admin: 02/09/17 05:54 Dose: 88 mcg Metoprolol Tartrate (Lopressor) 25 mg PO Q6H [facility] Last Admin: 02/09/17 16:00 Dose: 25 mg Ondansetron HCl (Zofran Inj) 4 mg IVP Q6H PRN PRN Reason: Nausea/Vomiting Promethazine HCl/Codeine (Phenergan/Codeine Oral Syrup) 5 ml PO Q4 PRN PRN Reason: Cough Last Admin: 02/06/17 13:48 Dose: 5 ml Saccharomyces Boulardii (Florastor) 250 mg PO BID [facility] Last Admin: 02/09/17 17:41 Dose: 250 mg - Labs Labs: 02/09/17 08:16 02/09/17 08:16 PT 13.2 SECONDS (9.7-12.2) H 01/20/17 19:37 INR 1.2 01/20/17 19:37 APTT 32 SECONDS (21-34) 01/20/17 19:37 Attending/Attestation - Attestation I have personally seen and examined this patient.: Yes I have fully participated in the care of the patient.: Yes I have reviewed all pertinent clinical information, including history, physical exam and plan: Yes Notes (Text): 02/09/17 18:46 Patient was seen and examined on 02/09/17 at 1:45 PM ROS: Still with occasional cough productive of small amounts of white material Subjective fever at night with sweats Exam: General: AAOx3, NAD HEENT: NCA, EOMI, PERRLA, NO cervical/supraclavicular/submandibular lymphadenopathy, NO pharyngeal erythema/exudate, Mucous Membranes are moist, Nasal Turbinates are nonedematous/nonerythematous Cardio: NS1 and NS2, NO M/R/G Respiratory: Faint inspiratory bibasilar inspiratory crackles GI: BSx4, Soft, NT, ND, NO HSM, NO guarding/rebound tenderness Ext: mild nonpitting edema involving the bilateral ankles, Pulses are strong and equal, Capillary Refill is 2 seconds Neuro: CN II through XII are grossly intact Assessments: Hx Elevated Troponin: likely secondary to episode of V Tach. Cardiac Cath performed by Dr. Pryor 01/27/17 showed clean coronaries. Therapeutic Lovenox was discontinued. Luekocytosis with Fever: repeat blood cultures negative, Sputum x 3 negative[address] Spoke with ID Dr. Calzada who was coverning for Dr. Carias and he recommended Bronchial Washing with cultures. Spoke with Grinder And Plater Dr. Mckeon (as loom operator Dr. Barrow has not responded to our calls to see this patient) and he had planned to perform bronchoscopy for morning 01/28/17. However , OR schedule did not free up, therefore Dr. Mckeon to schedule the bronchoscopy/ bronchial washing for Thursday01/30/17 and this was performed: culture showed Marcella albicans and Coag Neg Staph and Sputum AFB is negative. He was started on Diflucan 200 mg IV on 02/03/17. F/U repeat Blood and Urine Cultures from . For Bone Marrow Bx with Heme/Onc Dr. Alexandre tomorrrow morning 02/10/17 ( Leukemia?) and he is NPO after midnight. I spoke with ID Dr. Carias and for the Bone Marrow Bx she would like cytology, Fungal Culture, Fungal Stain, Mycobacterium AFT, Mycobacterium by PCR, Bacterial Gram Stain and Culture, Anaerobic Gram Stain and Culture and this was conveyed to Dr. Alexandre. Sputum Culture from 02/07/17 shows Gram Negative Rods and patient is currently on Ceftarolin 600 mg IV 1x/day. F/U senstivities F/U Autoimmune Workup. Hyponatremia: resolved. Monitor Hx Bacteremia: repeat cultures have been negative to date. Hx of TB Prophylaxis: he was on INH upon admission but currently not on anything. Sputum x [address] Chest 01/26/17 shows no change when compared to 01/20/17 (please see full reports). 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 Aspirin Hx Constipation: resolved Anemia: stable Hx Hypothyroidism: levothyroxine Hx Vertigo: resolved and was likely secondary to the Minocycline that patient was on at the time of admission and once discontinued, this issue resolved and has not recurred Hx Diarrhea: resolved Hx Bilateral Lower Leg Edema: duplex are negative, much improved and now mild non-pitting edema involving the ankles Hx Elevated LFTs: resolved Ian Gresham D.O.
[2017-02-09 09:06] LABS: NEUTROPHIL 89 % (50-75); TOTAL CELLS COUNTED 100
[2017-02-09] MEDS: Saccharomyces Boulardi 250 mg Cap PO SCH ×2 (11:21→17:41)
[2017-02-09] MEDS: guaiFENesin 600 mg ER Tab PO SCH ×2 (11:23→17:42)
[2017-02-09] MEDS: Fluconazole IV 200mg/100 ml NS 100 ML IVPB SCH (17:40)
[2017-02-09 19:18] LABS: Interpretation Negative (Negative)
--- NOTE | 2017-02-09 20:04 | CP.PCM.PN ---
Subjective - Date & Time of Evaluation Date of Evaluation: 02/09/17 Time of Evaluation: 04:00 - Subjective Subjective: dictated Objective - Vital Signs/Intake and Output Vital Signs (last 24 hours): Temp Pulse Resp BP Pulse Ox 98.4 F 66 20 107/61 99 02/09/17 15:17 02/09/17 15:17 02/09/17 15:17 02/09/17 16:00 02/09/17 15:17 - Medications Medications: Current Medications Acetaminophen (Tylenol 325mg Tab) 650 mg PO Q6 PRN PRN Reason: Fever >100.4 F Last Admin: 02/09/17 11:23 Dose: 650 mg Amiodarone HCl (Cordarone) 200 mg PO BID [facility] Last Admin: 02/09/17 17:42 Dose: 200 mg Docusate Sodium (Colace) 100 mg PO TID [facility] Last Admin: 02/09/17 17:41 Dose: 100 mg Famotidine (Pepcid) 20 mg PO BID [facility] Last Admin: 02/09/17 17:41 Dose: 20 mg Guaifenesin (Mucinex La) 600 mg PO BID [facility] Last Admin: 02/09/17 17:42 Dose: 600 mg Fluconazole (Diflucan Iv 200 Mg/100 Ml Ns) 100 mls @ 100 mls/hr IVPB Q24H [facility] Last Admin: 02/09/17 17:40 Dose: 100 mls/hr Ceftaroline Fosamil 600 mg/ (Sodium Chloride) 100 mls @ 100 mls/hr IVPB Q12H [facility] Last Admin: 02/09/17 00:03 Dose: 100 mls/hr Ipratropium [place] (Atrovent Hfa) 2 puff IH RQ6 PRN PRN Reason: Shortness of Breath Lactic Acid (Lac-Hydrin 12% Lotion (225 G)) 225 gm EXT Q1H PRN PRN Reason: Dry skin Last Admin: 02/04/17 18:34 Dose: 1 applic Levothyroxine Sodium (Synthroid) 88 mcg PO DAILY@0630 [facility] Last Admin: 02/09/17 05:54 Dose: 88 mcg Metoprolol Tartrate (Lopressor) 25 mg PO Q6H [facility] Last Admin: 02/09/17 16:00 Dose: 25 mg Ondansetron HCl (Zofran Inj) 4 mg IVP Q6H PRN PRN Reason: Nausea/Vomiting Promethazine HCl/Codeine (Phenergan/Codeine Oral Syrup) 5 ml PO Q4 PRN PRN Reason: Cough Last Admin: 02/06/17 13:48 Dose: 5 ml Saccharomyces Boulardii (Florastor) 250 mg PO BID [facility] Last Admin: 02/09/17 17:41 Dose: 250 mg - Labs Labs: 02/09/17 08:16 02/09/17 08:16 PT 13.2 SECONDS (9.7-12.2) H 01/20/17 19:37 INR 1.2 01/20/17 19:37 APTT 32 SECONDS (21-34) 01/20/17 19:37 Assessment and Plan (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
[2017-02-10] MEDS: Ceftaroline 600 MG in Sodium Chloride 0.9% 100 ML IVPB SCH (00:03)
--- NOTE | 2017-02-10 03:01 | PN ---
DATE: SUBJECTIVE: He has been started on IV antibiotics. He complains of fevers off and on and he is due to have a bone biopsy tomorrow as we need to rule out whether he has lymphoma or TB. His sputum for the first time is growing gram-negative 2 organisms and he gets soaked and drained with recurrent fevers and night sweats and becomes diaphoretic, but when I saw him, he was feeling a little better as he was on antibiotic. I am going to wait for the *------* even though the pharmacy does not want to give Teflaro for pneumonia, which it does approve for, but in this hospital, they are threatening that they will take it away as they only give it for cellulitis. I bagged him to keep it for another day till the cultures come by and we can change it appropriately. His workup for vasculitis seems to be negative, but it does not include c-ANCA which I was looking for which I will try to see if they did it or not. PHYSICAL EXAMINATION VITAL SIGNS: T-max is 98.4 right now, blood pressure 107/61, respirations are 20, heart rate is 76 and he was feeling okay, but he had a temp of 101.5 last night. HEENT: Head is atraumatic. NECK: Supple. LUNGS: Have fine crackles bilaterally, almost sounds like the patient with pulmonary fibrosis. HEART: S1 and S2 is regular. ABDOMEN: Soft and nontender. No guarding. No rigidity present. EXTREMITIES: Have no edema, clubbing, or cyanosis. LABORATORY DATA: Show white count is 22.3, hemoglobin 9.4, hematocrit 28.9 and platelet count is 471. So, we need to monitor the sputum culture when it comes back as it is growing 2 different types of gram-negative rods. Urine culture and blood cultures are negative. He denies any diarrhea and he remains on Teflaro and he is also on Diflucan as the sputum has shown Marcella. Other than that, I do not have the diagnosis still on him or why he continues to have fever and we will follow. Kofi Carias MD
[2017-02-10] MEDS: Levothyroxine 88 MCG TAB PO SCH (05:40)
[2017-02-10 07:21] LABS: BASO # 0.1 K/uL (0.0-0.2); BASO % 0.4 % (0.0-2.0); EOS # 0.8 K/uL (0.0-0.7); EOS % 3.7 % (0.0-4.0); HEMATOCRIT 30.1 % (35.0-51.0); LYMPH # 1.6 K/uL (1.0-4.3); LYMPH % 7.8 % (20.0-40.0); MEAN CELL VOLUME 82.9 fL (80.0-94.0); MEAN CORPUSCULAR HGB CONC 32.6 g/dL (33.0-37.0); MEAN PLATELET VOLUME 7.9 fL (7.2-11.7); MONO # 0.4 K/uL (0.0-0.8); MONO % 1.9 % (0.0-10.0); PLATELET COUNT 504 K/uL (130-400); RED CELL DISTRIBUTION WIDTH 19.4 % (11.5-14.5)
[2017-02-10 08:10] LABS: CHLORIDE 101 mmol/L (98-107); SODIUM 132 mmol/L (132-148)
[2017-02-10 08:11] LABS: POTASSIUM 4.2 mmol/L (3.6-5.2)
[2017-02-10 08:13] LABS: ALB/GLOB RATIO 0.5 (1.0-2.1); ALKALINE PHOSPHATASE 106 U/L (38-126); ALT/SGPT 37 U/L (21-72); AST/SGOT 39 U/L (17-59); BILIRUBIN,TOTAL 0.5 mg/dL (0.2-1.3); BLOOD UREA NITROGEN 16 mg/dL (9-20); CARBON DIOXIDE 25 mmol/L (22-30); GFR AFRICAN-AMERICAN > 60; GLUCOSE,RANDOM 88 mg/dL (75-110)
[2017-02-10 08:14] LABS: CALCIUM 8.1 mg/dl (8.6-10.4)
[2017-02-10 09:08] LABS: EOSINOPHIL 3 % (0-4); NEUTROPHIL 87 % (50-75); TOTAL CELLS COUNTED 100
[2017-02-10] MEDS: guaiFENesin 600 mg ER Tab PO SCH ×2 (09:18→18:44)
[2017-02-10] MEDS: Saccharomyces Boulardi 250 mg Cap PO SCH ×2 (09:19→18:44)
--- NOTE | 2017-02-10 10:58 | CP.PCM.PN ---
<Juan Francisco Gonzales - Last Filed: 02/10/17 11:15> Subjective - Date & Time of Evaluation Date of Evaluation: 02/10/17 Time of Evaluation: 10:47 - Subjective Subjective: PGY1 Note for Dr. Gresham HPI: Objective - Vital Signs/Intake and Output Vital Signs (last 24 hours): Temp Pulse Resp BP Pulse Ox 98.6 F 66 17 116/50 L 98 02/10/17 07:15 02/10/17 07:15 02/10/17 07:15 02/10/17 07:15 02/10/17 07:15 Intake and Output: 02/10/17 02/10/17 06:59 18:59 Intake Total 400 Balance 400 - Medications Medications: Current Medications Acetaminophen (Tylenol 325mg Tab) 650 mg PO Q6 PRN PRN Reason: Fever >100.4 F Last Admin: 02/09/17 11:23 Dose: 650 mg Amiodarone HCl (Cordarone) 200 mg PO BID [facility] Last Admin: 02/10/17 09:19 Dose: 200 mg Docusate Sodium (Colace) 100 mg PO TID [facility] Last Admin: 02/10/17 09:22 Dose: 100 mg Famotidine (Pepcid) 20 mg PO BID [facility] Last Admin: 02/10/17 09:19 Dose: 20 mg Guaifenesin (Mucinex La) 600 mg PO BID [facility] Last Admin: 02/10/17 09:18 Dose: 600 mg Fluconazole (Diflucan Iv 200 Mg/100 Ml Ns) 100 mls @ 100 mls/hr IVPB Q24H [facility] Last Admin: 02/09/17 17:40 Dose: 100 mls/hr Ceftaroline Fosamil 600 mg/ (Sodium Chloride) 100 mls @ 100 mls/hr IVPB Q12H [facility] Last Admin: 02/10/17 00:03 Dose: 100 mls/hr Ipratropium [place] (Atrovent Hfa) 2 puff IH RQ6 PRN PRN Reason: Shortness of Breath Lactic Acid (Lac-Hydrin 12% Lotion (225 G)) 225 gm EXT Q1H PRN PRN Reason: Dry skin Last Admin: 02/04/17 18:34 Dose: 1 applic Levothyroxine Sodium (Synthroid) 88 mcg PO DAILY@0630 [facility] Last Admin: 02/10/17 05:40 Dose: 88 mcg Ondansetron HCl (Zofran Inj) 4 mg IVP Q6H PRN PRN Reason: Nausea/Vomiting Promethazine HCl/Codeine (Phenergan/Codeine Oral Syrup) 5 ml PO Q4 PRN PRN Reason: Cough Last Admin: 02/06/17 13:48 Dose: 5 ml Saccharomyces Boulardii (Florastor) 250 mg PO BID [facility] Last Admin: 02/10/17 09:19 Dose: 250 mg - Labs Labs: 02/10/17 07:09 02/10/17 07:09 PT 13.2 SECONDS (9.7-12.2) H 01/20/17 19:37 INR 1.2 01/20/17 19:37 APTT 32 SECONDS (21-34) 01/20/17 19:37 Assessment and Plan - Assessment and Plan (Free Text) Assessment: Leukocytosis * Bronch - Marcella and Coag negative staph from Bronchial washing * WBC 21 * Blood culture - F/U * Sputum Culture - Raoultella Planticola, Enterobacter Cloacae * Urine culture negative * ID (Jv) reccs: Avelox 400mg IV, Rocephin 1g QD, Diflucan 200mg IV QD * Heme ([place]) - BM bx on thursday Fever * F/U BM BX * Autoimmune Workup - F/U * dsDNA - <1 * SCL 70 * Anti-Montelongo - <1 * SS A * SS B * Cocidio * Histo * CHAVA - 1:160, Speckled H, + ANA6 * C-ANCA * P-ANCA * MPO Ab - <1 * PR3 - <1 * T= 101.5 * Patient refuses hypothermic blanket History of hypothyroidism * Continue home medication: * Synthroid 88mcg PO daily * TSH normal Vtach * Stable * Patient Had Rapid called on 01/26 for Vtach - was asx * Cath on 01/27 - Normal coronaries, normal EF by echo * Started on Metoprolol 25 Q6H * Echo - EF 65-70 * Stopped therapeutic Lovenox * 01/30 Another episode of Asx Vtach (13 beats), Cards (Voudouris) started Cordarone 200mg PO BID Hx of TB PPX * On INH at admission, no longer on anything * Sputum x 3 negative * Repeat CT Chest 01/26/17 shows no change when compared to 01/20/17 <Ian Gresham - Last Filed: 02/10/17 18:57> Objective - Vital Signs/Intake and Output Vital Signs (last 24 hours): Temp Pulse Resp BP Pulse Ox 99.1 F 67 20 108/56 L 98 02/10/17 15:10 02/10/17 15:10 02/10/17 15:10 02/10/17 15:10 02/10/17 15:10 Intake and Output: 02/10/17 02/10/17 06:59 18:59 Intake Total 400 440 Balance 400 440 - Medications Medications: Current Medications Acetaminophen (Tylenol 325mg Tab) 650 mg PO Q6 PRN PRN Reason: Fever >100.4 F Last Admin: 02/09/17 11:23 Dose: 650 mg Amiodarone HCl (Cordarone) 200 mg PO BID [facility] Last Admin: 02/10/17 18:44 Dose: 200 mg Docusate Sodium (Colace) 100 mg PO TID [facility] Last Admin: 02/10/17 18:44 Dose: 100 mg Famotidine (Pepcid) 20 mg PO BID [facility] Last Admin: 02/10/17 18:44 Dose: 20 mg Guaifenesin (Mucinex La) 600 mg PO BID [facility] Last Admin: 02/10/17 18:44 Dose: 600 mg Fluconazole (Diflucan Iv 200 Mg/100 Ml Ns) 100 mls @ 100 mls/hr IVPB Q24H [facility] Last Admin: 02/10/17 14:19 Dose: 100 mls/hr Ceftriaxone Sodium 1 gm/ (Sodium Chloride) 100 mls @ 100 mls/hr IVPB Q12H [facility] Last Admin: 02/10/17 18:44 Dose: 100 mls/hr Ipratropium [place] (Atrovent Hfa) 2 puff IH RQ6 PRN PRN Reason: Shortness of Breath Lactic Acid (Lac-Hydrin 12% Lotion (225 G)) 225 gm EXT Q1H PRN PRN Reason: Dry skin Last Admin: 02/04/17 18:34 Dose: 1 applic Levothyroxine Sodium (Synthroid) 88 mcg PO DAILY@0630 [facility] Last Admin: 02/10/17 05:40 Dose: 88 mcg Ondansetron HCl (Zofran Inj) 4 mg IVP Q6H PRN PRN Reason: Nausea/Vomiting Promethazine HCl/Codeine (Phenergan/Codeine Oral Syrup) 5 ml PO Q4 PRN PRN Reason: Cough Last Admin: 02/06/17 13:48 Dose: 5 ml Saccharomyces Boulardii (Florastor) 250 mg PO BID [facility] Last Admin: 02/10/17 18:44 Dose: 250 mg - Labs Labs: 02/10/17 07:09 02/10/17 07:09 PT 13.2 SECONDS (9.7-12.2) H 01/20/17 19:37 INR 1.2 01/20/17 19:37 APTT 32 SECONDS (21-34) 01/20/17 19:37 Attending/Attestation - Attestation I have personally seen and examined this patient.: Yes I have fully participated in the care of the patient.: Yes I have reviewed all pertinent clinical information, including history, physical exam and plan: Yes Notes (Text): 02/10/17 18:52 Patient was seen and examined on 02/10/17 at 1:45 PM ROS: Still with occasional cough productive of small amounts of white material Subjective fever at night with sweats Exam: General: AAOx3, NAD HEENT: NCA, EOMI, PERRLA, NO cervical/supraclavicular/submandibular lymphadenopathy, NO pharyngeal erythema/exudate, Mucous Membranes are moist, Nasal Turbinates are nonedematous/nonerythematous Cardio: NS1 and NS2, NO M/R/G Respiratory: Faint inspiratory bibasilar inspiratory crackles GI: BSx4, Soft, NT, ND, NO HSM, NO guarding/rebound tenderness Ext: mild nonpitting edema involving the bilateral ankles, Pulses are strong and equal, Capillary Refill is 2 seconds Neuro: CN II through XII are grossly intact Assessments: Hx Elevated Troponin: likely secondary to episode of V Tach. Cardiac Cath performed by Dr. Pryor 01/27/17 showed clean coronaries. Therapeutic Lovenox was discontinued. Luekocytosis with Fever: repeat blood cultures negative, Sputum x 3 negative. Spoke with ID Dr. Calzada who was coverning for Dr. Carias and he recommended Bronchial Washing with cultures. Spoke with Lawn Technician Dr. Mckeon (as staff nurse midwife Dr. Barrow has not responded to our calls to see this patient) and he had planned to perform bronchoscopy for morning 01/28/17. However , OR schedule did not free up, therefore Dr. Mckeon to schedule the bronchoscopy/ bronchial washing for Thursday01/30/17 and this was performed: culture showed Marcella albicans and Coag Neg Staph and Sputum AFB is negative. He was started on Diflucan 200 mg IV on 02/03/17. F/U repeat Blood and Urine Cultures from . S/P Bone Marrow Bx 02/10/17 and cultures F/U Autoimmune Workup. Hyponatremia: resolved. Monitor Hx Bacteremia: repeat cultures have been negative to date. Hx of TB Prophylaxis: he was on INH upon admission but currently not on anything. Sputum x [address] Chest 01/26/17 shows no change when compared to 01/20/17 (please see full reports). 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 Aspirin Hx Constipation: resolved Anemia: stable Hx Hypothyroidism: levothyroxine Hx Vertigo: resolved and was likely secondary to the Minocycline that patient was on at the time of admission and once discontinued, this issue resolved and has not recurred Hx Diarrhea: resolved Hx Bilateral Lower Leg Edema: duplex are negative, much improved and now mild non-pitting edema involving the ankles Hx Elevated LFTs: resolved Ian Gresham D.O.
[2017-02-10] MEDS ORDERED: Moxifloxacin IV 400mg/250ml NS 400 MG/250 ML BAG IVPB SCH (13:00)
[2017-02-10] MEDS: Fluconazole IV 200mg/100 ml NS 100 ML IVPB SCH (14:19)
[2017-02-10] MEDS ORDERED: Lidocaine 2% Inj (20ml) IJ ONE (14:45)
--- NOTE | 2017-02-10 16:46 | CP.PCM.PN ---
Subjective - Date & Time of Evaluation Date of Evaluation: 02/10/17 Time of Evaluation: 16:00 - Subjective Subjective: Bone marrow aspiration and biopsy procedure Indication: Fever of unknown origin - Time-out was called to confirm: patients name and date of , procedure, side and site of biopsy, safety procedures followed. - Performed by: self. - Other physicians present: Juan Francisco Gonzales D.O. - Informed consent: signed by patient. - Aspiration and biopsy site: [left] superior posterior iliac crest. - Patient position: [prone] - Preparation and technique: sterile preparation of site with Betadyne, Chloraprep, draped to expose aspirate/biopsy area, local anesthesia with 2% lidocaine (approximately 10ml), frequent pressure application on incision to maintain hemostasis. - Tissue obtained: bone marrow aspirate and biopsy were successfully obtained in sterile manner. - Toleration of procedure and any complications: slight localized bleeding (<1ml ). Patient tolerated procedure well with minimal pain. Objective - Vital Signs/Intake and Output Vital Signs (last 24 hours): Temp Pulse Resp BP Pulse Ox 99.1 F 67 20 108/56 L 98 02/10/17 15:10 02/10/17 15:10 02/10/17 15:10 02/10/17 15:10 02/10/17 15:10 Intake and Output: 02/10/17 02/10/17 06:59 18:59 Intake Total 400 440 Balance 400 440 - Medications Medications: Current Medications Acetaminophen (Tylenol 325mg Tab) 650 mg PO Q6 PRN PRN Reason: Fever >100.4 F Last Admin: 02/09/17 11:23 Dose: 650 mg Amiodarone HCl (Cordarone) 200 mg PO BID [facility] Last Admin: 02/10/17 09:19 Dose: 200 mg Docusate Sodium (Colace) 100 mg PO TID [facility] Last Admin: 02/10/17 15:03 Dose: 100 mg Famotidine (Pepcid) 20 mg PO BID [facility] Last Admin: 02/10/17 09:19 Dose: 20 mg Guaifenesin (Mucinex La) 600 mg PO BID [facility] Last Admin: 02/10/17 09:18 Dose: 600 mg Fluconazole (Diflucan Iv 200 Mg/100 Ml Ns) 100 mls @ 100 mls/hr IVPB Q24H [facility] Last Admin: 02/10/17 14:19 Dose: 100 mls/hr Ceftriaxone Sodium 1 gm/ (Sodium Chloride) 100 mls @ 100 mls/hr IVPB Q12H [facility] Ipratropium [place] (Atrovent Hfa) 2 puff IH RQ6 PRN PRN Reason: Shortness of Breath Lactic Acid (Lac-Hydrin 12% Lotion (225 G)) 225 gm EXT Q1H PRN PRN Reason: Dry skin Last Admin: 02/04/17 18:34 Dose: 1 applic Levothyroxine Sodium (Synthroid) 88 mcg PO DAILY@0630 [facility] Last Admin: 02/10/17 05:40 Dose: 88 mcg Ondansetron HCl (Zofran Inj) 4 mg IVP Q6H PRN PRN Reason: Nausea/Vomiting Promethazine HCl/Codeine (Phenergan/Codeine Oral Syrup) 5 ml PO Q4 PRN PRN Reason: Cough Last Admin: 02/06/17 13:48 Dose: 5 ml Saccharomyces Boulardii (Florastor) 250 mg PO BID [facility] Last Admin: 02/10/17 09:19 Dose: 250 mg - Labs Labs: 02/10/17 07:09 02/10/17 07:09 PT 13.2 SECONDS (9.7-12.2) H 01/20/17 19:37 INR 1.2 01/20/17 19:37 APTT 32 SECONDS (21-34) 01/20/17 19:37 - Head Exam Head Exam: ATRAUMATIC - Eye Exam Eye Exam: Normal appearance - ENT Exam ENT Exam: Mucous Membranes Dry - Respiratory Exam Respiratory Exam: NORMAL BREATHING PATTERN - GI/Abdominal Exam GI & Abdominal Exam: Normal Bowel Sounds - Extremities Exam Extremities Exam: Normal Inspection Assessment and Plan (1) Fever of unknown origin Assessment & Plan: bone marrow aspirate and biopsy performed infectious and malignant w/u sent Status: Acute (2) Anemia Status: Acute (3) Leukocytosis Status: Acute
[2017-02-11 03:00] LABS: Q FEVER IGG PHASE I NEGATIVE; Q FEVER IGG PHASE II NEGATIVE; Q FEVER IGM PHASE I NEGATIVE; Q FEVER IGM PHASE II NEGATIVE
[2017-02-11] MEDS: Levothyroxine 88 MCG TAB PO SCH (05:36)
[2017-02-11 07:41] LABS: BASO # 0.1 K/uL (0.0-0.2); BASO % 0.2 % (0.0-2.0); EOS # 0.5 K/uL (0.0-0.7); EOS % 2.5 % (0.0-4.0); HEMATOCRIT 26.7 % (35.0-51.0); LYMPH # 1.5 K/uL (1.0-4.3); LYMPH % 6.8 % (20.0-40.0); MEAN CELL VOLUME 83.4 fL (80.0-94.0); MEAN CORPUSCULAR HEMOGLOBIN 27.3 pg (27.0-31.0); MEAN CORPUSCULAR HGB CONC 32.8 g/dL (33.0-37.0); MEAN PLATELET VOLUME 7.9 fL (7.2-11.7); MONO # 0.3 K/uL (0.0-0.8); MONO % 1.4 % (0.0-10.0); PLATELET COUNT 489 K/uL (130-400); RED CELL DISTRIBUTION WIDTH 19.5 % (11.5-14.5); WHITE BLOOD COUNT 21.2 K/uL (4.8-10.8)
[2017-02-11 07:52] LABS: CHLORIDE 100 mmol/L (98-107); POTASSIUM 3.9 mmol/L (3.6-5.2); SODIUM 132 mmol/L (132-148)
[2017-02-11 07:54] LABS: ALB/GLOB RATIO 0.5 (1.0-2.1); AST/SGOT 39 U/L (17-59); BILIRUBIN,TOTAL 0.4 mg/dL (0.2-1.3); BLOOD UREA NITROGEN 17 mg/dL (9-20); CARBON DIOXIDE 26 mmol/L (22-30); GFR AFRICAN-AMERICAN > 60; TOTAL PROTEIN 7.8 g/dL (6.3-8.3)
[2017-02-11 07:55] LABS: ALKALINE PHOSPHATASE 97 U/L (38-126); ALT/SGPT 39 U/L (21-72); GLUCOSE,RANDOM 140 mg/dL (75-110)
[2017-02-11 08:53] LABS: EOSINOPHIL 2 % (0-4); NEUTROPHIL 88 % (50-75); TOTAL CELLS COUNTED 100
[2017-02-11] MEDS: Saccharomyces Boulardi 250 mg Cap PO SCH ×2 (10:08→17:59)
[2017-02-11] MEDS: guaiFENesin 600 mg ER Tab PO SCH ×2 (10:08→18:00)
[2017-02-11] MEDS: Fluconazole IV 200mg/100 ml NS 100 ML IVPB SCH (14:15)
--- NOTE | 2017-02-11 16:49 | CP.PCM.PN ---
<Juan Francisco Gonzales - Last Filed: 02/11/17 16:45> Subjective - Date & Time of Evaluation Date of Evaluation: 02/11/17 Time of Evaluation: 16:46 - Subjective Subjective: PGY1 Note for Dr. Gresham HPI: Patient seen and examined at bedside. Doing well with no complaints at this time. States he has no pain from the bone marrow site. The dressing is still in place. Says that he had a fever over night and complained of sweating. No other complaints at this time. We explained that it would take a couple of days for the results of the bone marrow biopsy to come back. Objective - Vital Signs/Intake and Output Vital Signs (last 24 hours): Temp Pulse Resp BP Pulse Ox 97.5 F L 87 20 114/64 96 02/11/17 15:09 02/11/17 15:09 02/11/17 15:09 02/11/17 15:09 02/11/17 15:09 Intake and Output: 02/11/17 02/11/17 06:59 18:59 Intake Total 350 740 Balance 350 740 - Medications Medications: Current Medications Acetaminophen (Tylenol 325mg Tab) 650 mg PO Q6 PRN PRN Reason: Fever >100.4 F Last Admin: 02/11/17 04:26 Dose: 650 mg Amiodarone HCl (Cordarone) 200 mg PO BID [facility] Last Admin: 02/11/17 10:08 Dose: 200 mg Docusate Sodium (Colace) 100 mg PO TID [facility] Last Admin: 02/11/17 14:16 Dose: 100 mg Famotidine (Pepcid) 20 mg PO BID [facility] Last Admin: 02/11/17 10:08 Dose: 20 mg Guaifenesin (Mucinex La) 600 mg PO BID [facility] Last Admin: 02/11/17 10:08 Dose: 600 mg Fluconazole (Diflucan Iv 200 Mg/100 Ml Ns) 100 mls @ 100 mls/hr IVPB Q24H [facility] Last Admin: 02/11/17 14:15 Dose: 100 mls/hr Ceftriaxone Sodium 1 gm/ (Sodium Chloride) 100 mls @ 100 mls/hr IVPB Q12H [facility] Last Admin: 02/11/17 05:10 Dose: 100 mls/hr Ipratropium [place] (Atrovent Hfa) 2 puff IH RQ6 PRN PRN Reason: Shortness of Breath Lactic Acid (Lac-Hydrin 12% Lotion (225 G)) 225 gm EXT Q1H PRN PRN Reason: Dry skin Last Admin: 02/04/17 18:34 Dose: 1 applic Levothyroxine Sodium (Synthroid) 88 mcg PO DAILY@0630 [facility] Last Admin: 02/11/17 05:36 Dose: 88 mcg Ondansetron HCl (Zofran Inj) 4 mg IVP Q6H PRN PRN Reason: Nausea/Vomiting Promethazine HCl/Codeine (Phenergan/Codeine Oral Syrup) 5 ml PO Q4 PRN PRN Reason: Cough Last Admin: 02/06/17 13:48 Dose: 5 ml Saccharomyces Boulardii (Florastor) 250 mg PO BID [facility] Last Admin: 02/11/17 10:08 Dose: 250 mg - Labs Labs: 02/11/17 07:34 02/11/17 07:34 PT 13.2 SECONDS (9.7-12.2) H 01/20/17 19:37 INR 1.2 01/20/17 19:37 APTT 32 SECONDS (21-34) 01/20/17 19:37 - Constitutional Appears: Well, Non-toxic, No Acute Distress - Head Exam Head Exam: ATRAUMATIC, NORMAL INSPECTION, NORMOCEPHALIC - Eye Exam Eye Exam: EOMI - ENT Exam ENT Exam: Mucous Membranes Moist - Respiratory Exam Respiratory Exam: Clear to Ausculation Bilateral - Cardiovascular Exam Cardiovascular Exam: REGULAR RHYTHM - GI/Abdominal Exam GI & Abdominal Exam: Soft, Normal Bowel Sounds. absent: Distended, Tenderness - Back Exam Additional comments: Dressing in place, clean dry and intact - Neurological Exam Neurological Exam: Alert, Awake, Oriented x3 - Psychiatric Exam Psychiatric exam: Normal Affect, Normal Mood - Skin Skin Exam: Dry, Intact, Normal Color, Warm Assessment and Plan - Assessment and Plan (Free Text) Assessment: Leukocytosis * Bronch - Marcella and Coag negative staph from Bronchial washing * WBC 21 * Blood culture - F/U * Sputum Culture - Raoultella Planticola, Enterobacter Cloacae * Urine culture negative * ID (Jv) reccs: Rocephin 1g BID, Diflucan 200mg IV QD Fever * Heme ([place]) * F/U Bone marrow bx * Autoimmune Workup - F/U * dsDNA - <1 * SCL 70 * Anti-Montelongo - <1 * SS A * SS B * Cocidio * Histo * CHAVA - 1:160, Speckled H, + ANA6 * C-ANCA - negative * P-ANCA - negative * MPO Ab - <1 * PR3 - <1 History of hypothyroidism * Continue home medication: * Synthroid 88mcg PO daily * TSH normal Vtach * Stable * Patient Had Rapid called on 01/26 for Vtach - was asx * Cath on 01/27 - Normal coronaries, normal EF by echo * Started on Metoprolol 25 Q6H * Echo - EF 65-70 * Stopped therapeutic Lovenox * 01/30 Another episode of Asx Vtach (13 beats), Cards (Voudouris) started Cordarone 200mg PO BID Hx of TB PPX * On INH at admission, no longer on anything * Sputum x 3 negative * Repeat CT Chest 01/26/17 shows no change when compared to 01/20/17 <Ian Gresham - Last Filed: 02/11/17 18:51> Objective - Vital Signs/Intake and Output Vital Signs (last 24 hours): Temp Pulse Resp BP Pulse Ox 97.5 F L 87 20 114/64 96 02/11/17 15:09 02/11/17 15:09 02/11/17 15:09 02/11/17 15:09 02/11/17 15:09 Intake and Output: 02/11/17 02/11/17 06:59 18:59 Intake Total 350 740 Balance 350 740 - Medications Medications: Current Medications Acetaminophen (Tylenol 325mg Tab) 650 mg PO Q6 PRN PRN Reason: Fever >100.4 F Last Admin: 02/11/17 04:26 Dose: 650 mg Amiodarone HCl (Cordarone) 200 mg PO BID [facility] Last Admin: 02/11/17 17:59 Dose: 200 mg Docusate Sodium (Colace) 100 mg PO TID [facility] Last Admin: 02/11/17 17:59 Dose: 100 mg Famotidine (Pepcid) 20 mg PO BID [facility] Last Admin: 02/11/17 17:59 Dose: 20 mg Guaifenesin (Mucinex La) 600 mg PO BID [facility] Last Admin: 02/11/17 18:00 Dose: 600 mg Fluconazole (Diflucan Iv 200 Mg/100 Ml Ns) 100 mls @ 100 mls/hr IVPB Q24H [facility] Last Admin: 02/11/17 14:15 Dose: 100 mls/hr Ceftriaxone Sodium 1 gm/ (Sodium Chloride) 100 mls @ 100 mls/hr IVPB Q12H [facility] Last Admin: 02/11/17 18:00 Dose: 100 mls/hr Ipratropium [place] (Atrovent Hfa) 2 puff IH RQ6 PRN PRN Reason: Shortness of Breath Lactic Acid (Lac-Hydrin 12% Lotion (225 G)) 225 gm EXT Q1H PRN PRN Reason: Dry skin Last Admin: 02/04/17 18:34 Dose: 1 applic Levothyroxine Sodium (Synthroid) 88 mcg PO DAILY@0630 [facility] Last Admin: 02/11/17 05:36 Dose: 88 mcg Ondansetron HCl (Zofran Inj) 4 mg IVP Q6H PRN PRN Reason: Nausea/Vomiting Promethazine HCl/Codeine (Phenergan/Codeine Oral Syrup) 5 ml PO Q4 PRN PRN Reason: Cough Last Admin: 02/06/17 13:48 Dose: 5 ml Saccharomyces Boulardii (Florastor) 250 mg PO BID [facility] Last Admin: 02/11/17 17:59 Dose: 250 mg - Labs Labs: 02/11/17 07:34 02/11/17 07:34 PT 13.2 SECONDS (9.7-12.2) H 01/20/17 19:37 INR 1.2 01/20/17 19:37 APTT 32 SECONDS (21-34) 01/20/17 19:37 Attending/Attestation - Attestation I have personally seen and examined this patient.: Yes I have fully participated in the care of the patient.: Yes I have reviewed all pertinent clinical information, including history, physical exam and plan: Yes Notes (Text): 02/11/17 18:48 Patient was seen and examined on 02/11/17 at 2:30 PM ROS: Still with occasional cough productive of small amounts of white material Subjective fever at night with sweats continue Exam: General: AAOx3, NAD HEENT: NCA, EOMI, PERRLA, NO cervical/supraclavicular/submandibular lymphadenopathy, NO pharyngeal erythema/exudate, Mucous Membranes are moist, Nasal Turbinates are nonedematous/nonerythematous Cardio: NS1 and NS2, NO M/R/G Respiratory: Faint inspiratory bibasilar inspiratory crackles GI: BSx4, Soft, NT, ND, NO HSM, NO guarding/rebound tenderness Ext: mild nonpitting edema involving the bilateral ankles, Pulses are strong and equal, Capillary Refill is 2 seconds Neuro: CN II through XII are grossly intact Assessments: Hx Elevated Troponin: likely secondary to episode of V Tach. Cardiac Cath performed by Dr. Pryor 01/27/17 showed clean coronaries. Therapeutic Lovenox was discontinued. Luekocytosis with Fever: repeat blood cultures negative, Sputum x 3 negative. Spoke with ID Dr. Calzada who was coverning for Dr. Carias and he recommended Bronchial Washing with cultures. Spoke with Visitor Services Representative Dr. Mckeon (as proofer apprentice Dr. Barrow has not responded to our calls to see this patient) and he had planned to perform bronchoscopy for morning 01/28/17. However , OR schedule did not free up, therefore Dr. Mckeon to schedule the bronchoscopy/ bronchial washing for Thursday01/30/17 and this was performed: culture showed Marcella albicans and Coag Neg Staph and Sputum AFB is negative. He was started on Diflucan 200 mg IV on 02/03/17. F/U repeat Blood and Urine Cultures from . S/P Bone Marrow Bx 02/10/17 and Bone Marrow Cultures F/U Autoimmune Workup. IF these do not reveal answers, then consider FNA Lung Bx and Lumbar Puncture? Hyponatremia: resolved. Monitor Hx Bacteremia: repeat cultures have been negative to date. Hx of TB Prophylaxis: he was on INH upon admission but currently not on anything. Sputum x [address] Chest 01/26/17 shows no change when compared to 01/20/17 (please see full reports). 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 Aspirin Hx Constipation: resolved Anemia: stable Hx Hypothyroidism: levothyroxine Hx Vertigo: resolved and was likely secondary to the Minocycline that patient was on at the time of admission and once discontinued, this issue resolved and has not recurred Hx Diarrhea: resolved Hx Bilateral Lower Leg Edema: duplex are negative, much improved and now mild non-pitting edema involving the ankles Hx Elevated LFTs: resolved Ian Gresham D.O.
[2017-02-12] MEDS: Levothyroxine 88 MCG TAB PO SCH (05:52)
--- NOTE | 2017-02-12 06:53 | CP.PCM.PN ---
<Juan Francisco Gonzales - Last Filed: 02/12/17 13:28> Subjective - Date & Time of Evaluation Date of Evaluation: 02/12/17 Time of Evaluation: 06:52 - Subjective Subjective: PGY1 Note for Dr. Gresham HPI: Patient seen and examined at bedside. Complained of a fever overnight but no diaphoresis. He is also complaining of pain when he flexes the bilateral upper extremities. The pain was minimal last night but has gotten worse today. He is also stating of a headache with pain on the top and back of his head radiating to the back of his neck. I told him I would give him pain medicine and work up his new onset pain and weakness. Objective - Vital Signs/Intake and Output Vital Signs (last 24 hours): Temp Pulse Resp BP Pulse Ox 98.7 F 73 20 100/59 L 98 02/12/17 04:41 02/12/17 04:41 02/12/17 04:41 02/12/17 04:41 02/12/17 04:41 Intake and Output: 02/11/17 02/12/17 18:59 06:59 Intake Total 740 740 Balance 740 740 - Medications Medications: Current Medications Acetaminophen (Tylenol 325mg Tab) 650 mg PO Q6 PRN PRN Reason: Fever >100.4 F Last Admin: 02/11/17 20:22 Dose: 650 mg Amiodarone HCl (Cordarone) 200 mg PO BID [facility] Last Admin: 02/11/17 17:59 Dose: 200 mg Docusate Sodium (Colace) 100 mg PO TID [facility] Last Admin: 02/11/17 17:59 Dose: 100 mg Famotidine (Pepcid) 20 mg PO BID [facility] Last Admin: 02/11/17 17:59 Dose: 20 mg Guaifenesin (Mucinex La) 600 mg PO BID [facility] Last Admin: 02/11/17 18:00 Dose: 600 mg Fluconazole (Diflucan Iv 200 Mg/100 Ml Ns) 100 mls @ 100 mls/hr IVPB Q24H [facility] Last Admin: 02/11/17 14:15 Dose: 100 mls/hr Ceftriaxone Sodium 1 gm/ (Sodium Chloride) 100 mls @ 100 mls/hr IVPB Q12H [facility] Last Admin: 02/12/17 05:52 Dose: 100 mls/hr Ipratropium [place] (Atrovent Hfa) 2 puff IH RQ6 PRN PRN Reason: Shortness of Breath Lactic Acid (Lac-Hydrin 12% Lotion (225 G)) 225 gm EXT Q1H PRN PRN Reason: Dry skin Last Admin: 02/04/17 18:34 Dose: 1 applic Levothyroxine Sodium (Synthroid) 88 mcg PO DAILY@0630 [facility] Last Admin: 02/12/17 05:52 Dose: 88 mcg Ondansetron HCl (Zofran Inj) 4 mg IVP Q6H PRN PRN Reason: Nausea/Vomiting Promethazine HCl/Codeine (Phenergan/Codeine Oral Syrup) 5 ml PO Q4 PRN PRN Reason: Cough Last Admin: 02/06/17 13:48 Dose: 5 ml Saccharomyces Boulardii (Florastor) 250 mg PO BID [facility] Last Admin: 02/11/17 17:59 Dose: 250 mg - Labs Labs: 02/11/17 07:34 02/11/17 07:34 PT 13.2 SECONDS (9.7-12.2) H 01/20/17 19:37 INR 1.2 01/20/17 19:37 APTT 32 SECONDS (21-34) 01/20/17 19:37 - Constitutional Appears: Well, Non-toxic, No Acute Distress - Head Exam Head Exam: ATRAUMATIC, NORMAL INSPECTION, NORMOCEPHALIC - Eye Exam Eye Exam: EOMI Pupil Exam: NORMAL ACCOMODATION - ENT Exam ENT Exam: Mucous Membranes Moist - Respiratory Exam Respiratory Exam: Clear to Ausculation Bilateral, NORMAL BREATHING PATTERN - Cardiovascular Exam Cardiovascular Exam: REGULAR RHYTHM - GI/Abdominal Exam GI & Abdominal Exam: Soft, Normal Bowel Sounds. absent: Distended, Tenderness - Extremities Exam Extremities Exam: absent: Joint Swelling - Neurological Exam Neurological Exam: Alert, Awake, Oriented x3 Neuro motor strength exam: Left Upper Extremity: 3, Right Upper Extremity: 3, Left Lower Extremity: 5, Right Lower Extremity: 5 - Psychiatric Exam Psychiatric exam: Normal Affect, Normal Mood - Skin Skin Exam: Dry, Intact, Normal Color, Warm Assessment and Plan - Assessment and Plan (Free Text) Assessment: Myalgia * New onset b/l upper extremity pain when he flexes the arms, more on the right than the left assoc with headache * significantly decreased muscle strength bilaterally in the upper extremity * Last head CT/Brain MRI was unremarkable * F/U MRI of the spine * F/U MRI brain Leukocytosis * Bronch - Marcella and Coag negative staph from Bronchial washing * Blood culture - F/U * Sputum Culture - Raoultella Planticola, Enterobacter Cloacae * Urine culture negative * ID (Jv) reccs: Rocephin 1g BID, Diflucan 200mg IV QD Fever * Heme ([place]) * F/U Bone marrow bx * Autoimmune Workup - F/U * dsDNA - <1 * SCL 70 * Anti-Montelongo - <1 * SS A * SS B * CHAVA - 1:160, Speckled H, + ANA6 * C-ANCA - negative * P-ANCA - negative * MPO Ab - <1 * PR3 - <1 * Cocidio - F/U * Histo - F/U History of hypothyroidism * Synthroid 88mcg PO daily * TSH normal Vtach * Stable * Patient Had Rapid called on 01/26 for Vtach - was asx * Cath on 01/27 - Normal coronaries, normal EF by echo * Started on Metoprolol 25 Q6H * Echo - EF 65-70 * Stopped therapeutic Lovenox * 01/30 Another episode of Asx Vtach (13 beats), Cards (Voudouris) started Cordarone 200mg PO BID Hx of TB PPX * On INH at admission, no longer on anything * Sputum x 3 negative * Repeat CT Chest 01/26/17 shows no change when compared to 01/20/17 <Ian Gresham - Last Filed: 02/12/17 18:48> Objective - Vital Signs/Intake and Output Vital Signs (last 24 hours): Temp Pulse Resp BP Pulse Ox 103.1 F H 103 H 20 145/76 99 02/12/17 17:26 02/12/17 16:00 02/12/17 15:50 02/12/17 15:50 02/12/17 15:50 Intake and Output: 02/12/17 02/12/17 06:59 18:59 Intake Total 740 580 Balance 740 580 - Medications Medications: Current Medications Acetaminophen (Tylenol 325mg Tab) 650 mg PO Q6 PRN PRN Reason: Fever >100.4 F Last Admin: 02/12/17 15:25 Dose: 650 mg Amiodarone HCl (Cordarone) 200 mg PO BID [facility] Last Admin: 02/12/17 17:46 Dose: 200 mg Famotidine (Pepcid) 20 mg PO BID [facility] Last Admin: 02/12/17 17:46 Dose: 20 mg Guaifenesin (Mucinex La) 600 mg PO BID [facility] Last Admin: 02/12/17 17:47 Dose: 600 mg Fluconazole (Diflucan Iv 200 Mg/100 Ml Ns) 100 mls @ 100 mls/hr IVPB Q24H [facility] Last Admin: 02/12/17 14:40 Dose: 100 mls/hr Ceftriaxone Sodium 1 gm/ (Sodium Chloride) 100 mls @ 100 mls/hr IVPB Q12H [facility] Last Admin: 02/12/17 17:46 Dose: 100 mls/hr Ibuprofen (Motrin Tab) 600 mg PO Q6H PRN PRN Reason: fever Last Admin: 02/12/17 17:46 Dose: 600 mg Ipratropium [place] (Atrovent Hfa) 2 puff IH RQ6 PRN PRN Reason: Shortness of Breath Lactic Acid (Lac-Hydrin 12% Lotion (225 G)) 225 gm EXT Q1H PRN PRN Reason: Dry skin Last Admin: 02/04/17 18:34 Dose: 1 applic Levothyroxine Sodium (Synthroid) 88 mcg PO DAILY@0630 [facility] Last Admin: 02/12/17 05:52 Dose: 88 mcg Ondansetron HCl (Zofran Inj) 4 mg IVP Q6H PRN PRN Reason: Nausea/Vomiting Promethazine HCl/Codeine (Phenergan/Codeine Oral Syrup) 5 ml PO Q4 PRN PRN Reason: Cough Last Admin: 02/06/17 13:48 Dose: 5 ml Saccharomyces Boulardii (Florastor) 250 mg PO BID [facility] Last Admin: 02/12/17 17:46 Dose: 250 mg Tramadol HCl (Ultram) 25 mg PO BID PRN PRN Reason: Pain, moderate (4-7) - Labs Labs: 02/12/17 12:04 02/12/17 12:04 PT 13.2 SECONDS (9.7-12.2) H 01/20/17 19:37 INR 1.2 01/20/17 19:37 APTT 32 SECONDS (21-34) 01/20/17 19:37 Attending/Attestation - Attestation I have personally seen and examined this patient.: Yes I have fully participated in the care of the patient.: Yes I have reviewed all pertinent clinical information, including history, physical exam and plan: Yes Notes (Text): 02/12/17 18:37 Patient was seen and examined on 02/12/17 at 1:30 PM ROS: Still with occasional cough productive of small amounts of white material Subjective fever at night with sweats continue Chills Weakness/Pain of the bilateral upper arms and NO paresthesia complaints at the time of my exam Moving his bowels Exam: General: AAOx3, NAD HEENT: NCA, EOMI, PERRLA, NO cervical/supraclavicular/submandibular lymphadenopathy, NO pharyngeal erythema/exudate, Mucous Membranes are moist, Nasal Turbinates are nonedematous/nonerythematous Cardio: NS1 and NS2, NO M/R/G Respiratory: Faint inspiratory bibasilar inspiratory crackles GI: BSx4, Soft, NT, ND, NO HSM, NO guarding/rebound tenderness Ext: mild nonpitting edema involving the bilateral ankles, Pulses are strong and equal, Capillary Refill is 2 seconds Neuro: CN II through XII are grossly intact Assessments: Hx Elevated Troponin: likely secondary to episode of V Tach. Cardiac Cath performed by Dr. Pryor 01/27/17 showed clean coronaries. Therapeutic Lovenox was discontinued. Luekocytosis with Fever: repeat blood cultures negative, Sputum x 3 negative. Spoke with ID Dr. Calzada who was coverning for Dr. Carias and he recommended Bronchial Washing with cultures. Spoke with Ultrasound Applications Specialist Dr. Mckeon (as diabetes educator Dr. Barrow has not responded to our calls to see this patient) and he had planned to perform bronchoscopy for morning 01/28/17. However , OR schedule did not free up, therefore Dr. Mckeon to schedule the bronchoscopy/ bronchial washing for Thursday01/30/17 and this was performed: culture showed Marcella albicans and Coag Neg Staph and Sputum AFB is negative. He was started on Diflucan 200 mg IV on 02/03/17. Blood and Urine Cultures from 02/07/17 are negative. Sputum Culture 02/07/17 showed Raoultella planticola and Enterobacter cloacae and patient is on Ceftriaxone. S/P Bone Marrow Bx 02/10/17 and Bone Marrow Cultures are currently negative. F/U Bone Marrow Bx Pathology F/U Autoimmune Workup. IF these do not reveal answers, then consider FNA Lung Bx and Lumbar Puncture Hyponatremia: resolved. Monitor Hx Bacteremia: repeat cultures have been negative to date. Hx of TB Prophylaxis: he was on INH upon admission but currently not on anything. Sputum x [address] Chest 01/26/17 shows no change when compared to 01/20/17 (please see full reports). 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 Aspirin Hx Constipation: resolved Anemia: stable Hx Hypothyroidism: levothyroxine Hx Vertigo: resolved and was likely secondary to the Minocycline that patient was on at the time of admission and once discontinued, this issue resolved and has not recurred Hx Diarrhea: resolved Hx Bilateral Lower Leg Edema: duplex are negative, much improved and now mild non-pitting edema involving the ankles Hx Elevated LFTs: resolved Patient has been getting up every 2 hours and performing 10 laps around the floor as instructed by me all week. F/U MRI Thoracic and Cervical Spine Ian Gresham D.O.
[2017-02-12] MEDS: guaiFENesin 600 mg ER Tab PO SCH ×2 (09:19→17:47)
[2017-02-12] MEDS: Saccharomyces Boulardi 250 mg Cap PO SCH ×2 (09:19→17:46)
[2017-02-12] MEDS ORDERED: Gadodiamide 287 MG/ML VIAL (15ML) IV ONE (11:05)
[2017-02-12 12:08] LABS: BASO % 0.1 % (0.0-2.0); EOS # 0.7 K/uL (0.0-0.7); EOS % 2.7 % (0.0-4.0); HEMATOCRIT 30.3 % (35.0-51.0); LYMPH # 1.8 K/uL (1.0-4.3); LYMPH % 7.5 % (20.0-40.0); MEAN CELL VOLUME 82.8 fL (80.0-94.0); MEAN CORPUSCULAR HEMOGLOBIN 26.9 pg (27.0-31.0); MEAN CORPUSCULAR HGB CONC 32.5 g/dL (33.0-37.0); MEAN PLATELET VOLUME 7.6 fL (7.2-11.7); MONO # 0.2 K/uL (0.0-0.8); PLATELET COUNT 541 K/uL (130-400); RED CELL DISTRIBUTION WIDTH 19.6 % (11.5-14.5); WHITE BLOOD COUNT 23.8 K/uL (4.8-10.8)
[2017-02-12 12:16] LABS: CHLORIDE 98 mmol/L (98-107); SODIUM 133 mmol/L (132-148)
[2017-02-12 12:18] LABS: ALB/GLOB RATIO 0.5 (1.0-2.1); AST/SGOT 46 U/L (17-59); BILIRUBIN,TOTAL 0.4 mg/dL (0.2-1.3); CARBON DIOXIDE 24 mmol/L (22-30); GFR AFRICAN-AMERICAN > 60; TOTAL PROTEIN 8.6 g/dL (6.3-8.3)
[2017-02-12 12:19] LABS: ALKALINE PHOSPHATASE 132 U/L (38-126); ALT/SGPT 43 U/L (21-72); BLOOD UREA NITROGEN 15 mg/dL (9-20); CALCIUM 8.4 mg/dl (8.6-10.4); GLUCOSE,RANDOM 115 mg/dL (75-110)
[2017-02-12 13:00] LABS: EOSINOPHIL 2 % (0-4); NEUTROPHIL 86 % (50-75); TOTAL CELLS COUNTED 100
[2017-02-12 13:02] LABS: LARGE PLATELETS PRESENT
--- NOTE | 2017-02-12 13:41 | MRI ---
PROCEDURE: MR CERVICAL SPINE WITH AND WITHOUT CONTRAST HISTORY: r/o epidural abscess COMPARISON: None available. TECHNIQUE: Multiecho multiplanar sequences were performed through the cervical spine with and without the use of intravenous contrast. FINDINGS: Normal cervical curvature is appreciated. There is no fracture or spondylolisthesis identified. Diminished signal intensity seen throughout the marrow of the cervical spine across all sequences which may reflect anemia or other hematopoietic disorder. Further clinical correlation is advised. No suspicious focal lesion is identified throughout the cervical spine nevertheless. Craniocervical junction appears intact swells the C1-2 articulation. Cervicothoracic junction is unremarkable. No prevertebral or paraspinal soft tissue changes are identified. Enhancement pattern throughout the cervical spine is within normal limits including the epidural and intrathecal spaces. Cervical spinal cord is normal in course caliber contour and intrinsic signal. C2-3: No disc herniation, spinal canal stenosis or neural foraminal narrowing. C3-4: No disc herniation, spinal canal stenosis or neural foraminal narrowing. C4-5: No disc herniation is appreciated in the central canal appears widely patent. There is borderline degenerate bilateral neural foraminal stenosis however. C5-C6: No disc herniation, spinal canal stenosis or neural foraminal narrowing. C6-C7: Limited disc bulging is appreciated without disc herniation or significant central canal stenosis. Neural foramina and central canal appear widely patent. C7-T1: No disc herniation, spinal canal stenosis or neural foraminal narrowing. OTHER FINDINGS: None. IMPRESSION: 1. No definite disc herniation or significant stenosis is appreciated throughout the S central canal. Limited disc bulging is seen at C6-7 without significant stenosis. 2. Limited degenerative neural foraminal stenosis is seen bilaterally and symmetrically at C4-5. 3. Diminished marrow signal seen across all sequences which may indicate an element of anemia or other hematopoiesis pathology. Clinically correlate. No focal mass identified throughout the vertebral bodies but or posterior elements. 4. No abnormal intrathecal or epidural enhancement .
--- NOTE | 2017-02-12 14:02 | MRI ---
PROCEDURE: MR THORACIC SPINE WITHOUT CONTRAST HISTORY: r/o epidural abscess COMPARISON: No prior thoracic spine MRI available comparison. Correlation prior chest and pelvis CT 02/03/2017. TECHNIQUE: Multiecho multiplanar sequences were performed through the thoracic spine without the use of intravenous contrast. FINDINGS: ALIGNMENT: Normal thoracic kyphosis is appreciated without acute fracture or spondylolisthesis identified. VERTEBRA: Vertebral body height are preserved. MARROW: Dark marrow signal is seen across all sequences was may indicate an element of anemia or other hematopoietic pathology. Clinical correlation is advised. A small T2 hyperintensity is appreciate with missing the mixed signal on T1 weighting at the T5 vertebral body low. It partially suppresses on STIR imaging and may reflect an atypical benign hemangioma. Prevertebral paraspinal soft tissues appear within normal limits. The cervical spinal cord appears normal in course caliber contour and intrinsic signal. There is no abnormal intrathecal or epidural enhancement appreciate including throughout the spinal cord. Conus medullaris appears normal caliber and intrinsic signal terminating at the L1 superior endplate level. PARASPINAL SOFT TISSUES: As discussed above. CORD: As discussed above. DISCS: Small left paracentral disc protrusions are seen at T3-4 and T4-5 with associated osteophytes which encroaches the ventral left T3 and T4 ventral nerve roots. There is a mild generalized disc bulge identified T7-8 without significant stenosis resulting the ventral nerve roots are encroached. OTHER FINDINGS: Incidental note is made of a small bulla or pneumatocele at the right lower lobe base as previously demonstrated chest and pelvis CT 02/03/2017. IMPRESSION: 1. No epidural or intrathecal abscess or abnormal contrast enhancement identified otherwise. The thoracic spinal cord appears normal in course caliber contour and intrinsic signal. 2. Small left paracentral disc protrusions are identified at T3-4 and T4-5 encroaching the ventral left T3 and T4 nerve roots without significant stenosis resulting. No severe stenosis throughout this exam. 3. Limited disc bulging T7-8 without significant stenosis. 4. Dark marrow signal across all sequences may indicate anemia or other hematopoietic pathology.
[2017-02-12] MEDS: Fluconazole IV 200mg/100 ml NS 100 ML IVPB SCH (14:40)
--- NOTE | 2017-02-12 19:25 | CP.PCM.PN ---
Subjective - Date & Time of Evaluation Date of Evaluation: 02/12/17 Time of Evaluation: 09:00 - Subjective Subjective: fever persists on antibiotics await bone marrow bx consider lymph node bx as well as lung bx if not done consider d/c iv antiobtics Objective - Vital Signs/Intake and Output Vital Signs (last 24 hours): Temp Pulse Resp BP Pulse Ox 100.4 F H 87 20 143/61 99 02/12/17 19:05 02/12/17 19:05 02/12/17 15:50 02/12/17 19:05 02/12/17 15:50 Intake and Output: 02/12/17 02/13/17 18:59 06:59 Intake Total 580 Balance 580 - Medications Medications: Current Medications Acetaminophen (Tylenol 325mg Tab) 650 mg PO Q6 PRN PRN Reason: Fever >100.4 F Last Admin: 02/12/17 15:25 Dose: 650 mg Amiodarone HCl (Cordarone) 200 mg PO BID [facility] Last Admin: 02/12/17 17:46 Dose: 200 mg Famotidine (Pepcid) 20 mg PO BID [facility] Last Admin: 02/12/17 17:46 Dose: 20 mg Guaifenesin (Mucinex La) 600 mg PO BID [facility] Last Admin: 02/12/17 17:47 Dose: 600 mg Fluconazole (Diflucan Iv 200 Mg/100 Ml Ns) 100 mls @ 100 mls/hr IVPB Q24H [facility] Last Admin: 02/12/17 14:40 Dose: 100 mls/hr Ceftriaxone Sodium 1 gm/ (Sodium Chloride) 100 mls @ 100 mls/hr IVPB Q12H [facility] Last Admin: 02/12/17 17:46 Dose: 100 mls/hr Ibuprofen (Motrin Tab) 600 mg PO Q6H PRN PRN Reason: fever Last Admin: 02/12/17 17:46 Dose: 600 mg Ipratropium [place] (Atrovent Hfa) 2 puff IH RQ6 PRN PRN Reason: Shortness of Breath Lactic Acid (Lac-Hydrin 12% Lotion (225 G)) 225 gm EXT Q1H PRN PRN Reason: Dry skin Last Admin: 02/04/17 18:34 Dose: 1 applic Levothyroxine Sodium (Synthroid) 88 mcg PO DAILY@0630 [facility] Last Admin: 02/12/17 05:52 Dose: 88 mcg Ondansetron HCl (Zofran Inj) 4 mg IVP Q6H PRN PRN Reason: Nausea/Vomiting Promethazine HCl/Codeine (Phenergan/Codeine Oral Syrup) 5 ml PO Q4 PRN PRN Reason: Cough Last Admin: 02/06/17 13:48 Dose: 5 ml Saccharomyces Boulardii (Florastor) 250 mg PO BID [facility] Last Admin: 02/12/17 17:46 Dose: 250 mg Tramadol HCl (Ultram) 25 mg PO BID PRN PRN Reason: Pain, moderate (4-7) - Labs Labs: 02/12/17 12:04 02/12/17 12:04 PT 13.2 SECONDS (9.7-12.2) H 01/20/17 19:37 INR 1.2 01/20/17 19:37 APTT 32 SECONDS (21-34) 01/20/17 19:37 Assessment and Plan (1) Allergic drug rash due to anti-infective agent Status: Acute (2) Aspiration into lower respiratory tract Status: Acute (3) PPD+ (purified protein derivative positive) Status: Acute
[2017-02-13] MEDS: Levothyroxine 88 MCG TAB PO SCH (05:56)
--- NOTE | 2017-02-13 06:53 | CP.PCM.PN ---
<HedyJuan Francisco bishop - Last Filed: 02/13/17 09:50> Subjective - Date & Time of Evaluation Date of Evaluation: 02/13/17 Time of Evaluation: 06:53 - Subjective Subjective: PGY1 Note for Dr. Gresham HPI: Patient seen and examined at bedside. Doing well. Only complaining of fever yesterday followed by severe sweating where he soaked thru three gowns and had multiple saturated towels at the foot of the bed. I tild him we are still waiting for the BM bx results as well as the other tests. I will let him know when they are available. No other complaints at this time. Objective - Vital Signs/Intake and Output Vital Signs (last 24 hours): Temp Pulse Resp BP Pulse Ox 97.6 F 59 L 20 117/56 L 99 02/13/17 04:20 02/13/17 03:49 02/12/17 23:40 02/12/17 23:40 02/12/17 23:40 Intake and Output: 02/12/17 02/13/17 18:59 06:59 Intake Total 580 Balance 580 - Medications Medications: Current Medications Acetaminophen (Tylenol 325mg Tab) 650 mg PO Q6 PRN PRN Reason: Fever >100.4 F Last Admin: 02/12/17 15:25 Dose: 650 mg Amiodarone HCl (Cordarone) 200 mg PO BID [facility] Last Admin: 02/12/17 17:46 Dose: 200 mg Guaifenesin (Mucinex La) 600 mg PO BID [facility] Last Admin: 02/12/17 17:47 Dose: 600 mg Ceftriaxone Sodium 1 gm/ (Sodium Chloride) 100 mls @ 100 mls/hr IVPB BID [facility] Fluconazole (Diflucan Iv 200 Mg/100 Ml Ns) 100 mls @ 100 mls/hr IVPB DAILY [facility] Ibuprofen (Motrin Tab) 600 mg PO Q6H PRN PRN Reason: fever Last Admin: 02/12/17 17:46 Dose: 600 mg Ipratropium [place] (Atrovent Hfa) 2 puff IH RQ6 PRN PRN Reason: Shortness of Breath Lactic Acid (Lac-Hydrin 12% Lotion (225 G)) 225 gm EXT Q1H PRN PRN Reason: Dry skin Last Admin: 02/04/17 18:34 Dose: 1 applic Levothyroxine Sodium (Synthroid) 88 mcg PO DAILY@0630 [facility] Last Admin: 02/13/17 05:56 Dose: 88 mcg Promethazine HCl/Codeine (Phenergan/Codeine Oral Syrup) 5 ml PO Q4 PRN PRN Reason: Cough Last Admin: 02/06/17 13:48 Dose: 5 ml Saccharomyces Boulardii (Florastor) 250 mg PO BID [facility] Last Admin: 02/12/17 17:46 Dose: 250 mg Tramadol HCl (Ultram) 25 mg PO BID PRN PRN Reason: Pain, moderate (4-7) - Labs Labs: 02/12/17 12:04 02/12/17 12:04 PT 13.2 SECONDS (9.7-12.2) H 01/20/17 19:37 INR 1.2 01/20/17 19:37 APTT 32 SECONDS (21-34) 01/20/17 19:37 - Constitutional Appears: Well, No Acute Distress - Head Exam Head Exam: ATRAUMATIC, NORMAL INSPECTION, NORMOCEPHALIC - Eye Exam Eye Exam: EOMI - ENT Exam ENT Exam: Mucous Membranes Moist - Respiratory Exam Respiratory Exam: Clear to Ausculation Bilateral, NORMAL BREATHING PATTERN - Cardiovascular Exam Cardiovascular Exam: REGULAR RHYTHM, JVD (new onset) - GI/Abdominal Exam GI & Abdominal Exam: Soft, Normal Bowel Sounds. absent: Distended, Tenderness, Organomegaly - Extremities Exam Extremities Exam: Joint Swelling, Pedal Edema - Neurological Exam Neurological Exam: Alert, Awake, Oriented x3 - Psychiatric Exam Psychiatric exam: Normal Affect, Normal Mood - Skin Skin Exam: Dry, Intact, Normal Color, Warm Assessment and Plan - Assessment and Plan (Free Text) Assessment: Myalgia * New onset b/l upper extremity pain when he flexes the arms, more on the right than the left assoc with headache * significantly decreased muscle strength bilaterally in the upper extremity * Last head CT/Brain MRI was unremarkable * MRI of the spine - No epidural abscess. Bone marrow signaling abnormal. Consider hematopoietic process Leukocytosis * Bronch - Marcella and Coag negative staph from Bronchial washing * Blood culture - F/U * Urine Culture - F/U * Sputum culture F/U * Sputum Culture - Raoultella Planticola, Enterobacter Cloacae * Urine culture negative * ID (Jv) reccs: Rocephin 1g BID, Diflucan 200mg IV QD Fever * Heme ([place]) - F/U Bone Marrow Bx - no abnormal myeloid maturation or increased blasts, no lymphoproliferative disorder or plasma cell dyscrasia * Anerobic culture negative * Autoimmune Workup - F/U * dsDNA - <1\ * Anti-Montelongo - <1 * CHAVA - 1:160, Speckled H, + ANA6 * C-ANCA - negative * P-ANCA - negative * MPO Ab - <1 * PR3 - <1 * Aspergillus - F/U * High fever of 103 that afternoon - added Motrin 600mg Q4 alternate with tylenol, Max at Q2 History of hypothyroidism * Synthroid 88mcg PO daily * TSH normal Vtach * Stable * Patient Had Rapid called on 01/26 for Vtach - was asx * Cath on 01/27 - Normal coronaries, normal EF by echo * Started on Metoprolol 25 Q6H * Echo - EF 65-70 * Stopped therapeutic Lovenox * 01/30 Another episode of Asx Vtach (13 beats), Cards ([place]) started Cordarone 200mg PO BID Hx of TB PPX * On INH at admission, no longer on anything * Sputum x 3 negative * Repeat CT Chest 01/26/17 shows no change when compared to 01/20/17 <Ian Gresham - Last Filed: 02/13/17 18:24> Objective - Vital Signs/Intake and Output Vital Signs (last 24 hours): Temp Pulse Resp BP Pulse Ox 97.5 F L 85 18 125/78 100 02/13/17 15:39 02/13/17 15:39 02/13/17 15:39 02/13/17 15:39 02/13/17 15:39 Intake and Output: 02/13/17 02/13/17 06:59 18:59 Intake Total 600 Balance 600 - Medications Medications: Current Medications Acetaminophen (Tylenol 325mg Tab) 650 mg PO Q6 PRN PRN Reason: Fever >100.4 F Last Admin: 02/12/17 15:25 Dose: 650 mg Amiodarone HCl (Cordarone) 200 mg PO BID [facility] Last Admin: 02/13/17 17:29 Dose: 200 mg Guaifenesin (Mucinex La) 600 mg PO BID [facility] Last Admin: 02/13/17 17:29 Dose: 600 mg Ibuprofen (Motrin Tab) 600 mg PO Q6H PRN PRN Reason: fever Last Admin: 02/12/17 17:46 Dose: 600 mg Ipratropium [place] (Atrovent Hfa) 2 puff IH RQ6 PRN PRN Reason: Shortness of Breath Lactic Acid (Lac-Hydrin 12% Lotion (225 G)) 225 gm EXT Q1H PRN PRN Reason: Dry skin Last Admin: 02/04/17 18:34 Dose: 1 applic Levothyroxine Sodium (Synthroid) 88 mcg PO DAILY@0630 [facility] Last Admin: 02/13/17 05:56 Dose: 88 mcg Promethazine HCl/Codeine (Phenergan/Codeine Oral Syrup) 5 ml PO Q4 PRN PRN Reason: Cough Last Admin: 02/13/17 17:29 Dose: 5 ml Saccharomyces Boulardii (Florastor) 250 mg PO BID [facility] Last Admin: 02/13/17 17:30 Dose: 250 mg Tramadol HCl (Ultram) 25 mg PO BID PRN PRN Reason: Pain, moderate (4-7) Last Admin: 02/13/17 17:29 Dose: 25 mg - Labs Labs: 02/13/17 07:00 02/13/17 07:00 PT 13.2 SECONDS (9.7-12.2) H 01/20/17 19:37 INR 1.2 01/20/17 19:37 APTT 32 SECONDS (21-34) 01/20/17 19:37 Attending/Attestation - Attestation I have personally seen and examined this patient.: Yes I have fully participated in the care of the patient.: Yes I have reviewed all pertinent clinical information, including history, physical exam and plan: Yes Notes (Text): 02/13/17 18:18 Patient was seen and examined on 02/13/17 at 3:30 PM ROS: Still with occasional cough productive of small amounts of white material Subjective fever at night with sweats continue Chills Moving his bowels Would like to take a shower Exam: General: AAOx3, NAD HEENT: NCA, EOMI, PERRLA, NO cervical/supraclavicular/submandibular lymphadenopathy, NO pharyngeal erythema/exudate, Mucous Membranes are moist, Nasal Turbinates are nonedematous/nonerythematous Cardio: NS1 and NS2, NO M/R/G Respiratory: Faint inspiratory bibasilar inspiratory crackles GI: BSx4, Soft, NT, ND, NO HSM, NO guarding/rebound tenderness Ext: mild nonpitting edema involving the bilateral ankles, Pulses are strong and equal, Capillary Refill is 2 seconds Neuro: CN II through XII are grossly intact Assessments: Hx Elevated Troponin: likely secondary to episode of V Tach. Cardiac Cath performed by Dr. Pryor 01/27/17 showed clean coronaries. Therapeutic Lovenox was discontinued. Luekocytosis with Fever: repeat blood cultures negative, Sputum x [address] negative[address] with ID Dr. Calzada who was coverning for Dr. Carias and he recommended Bronchial Washing with cultures. Spoke with [employer] Dr. Mckeon (as executive administrative asst Dr. Barrow has not responded to our calls to see this patient) and he had planned to perform bronchoscopy for morning 01/28/17. However , OR schedule did not free up, therefore Dr. Mckeon to schedule the bronchoscopy/ bronchial washing for Thursday01/30/17 and this was performed: culture showed Marcella albicans and Coag Neg Staph and Sputum AFB is negative. He was started on Diflucan 200 mg IV on 02/03/17. Blood and Urine Cultures from 02/07/17 are negative. Sputum Culture 02/07/17 showed Raoultella planticola and Enterobacter cloacae and patient is on Ceftriaxone. S/P Bone Marrow Bx 02/10/17 and Bone Marrow Cultures are currently negative. F/U Bone Marrow Bx Pathology F/U Autoimmune Workup. Diflucan and Ceftriaxone which the patient had been on since 02/03/17 were discontinued by ID on 02/13/17. MRI Thoracic and Cervical Spine did not reveal any abscesses but did now show abnormal signal on the vertebrae suspicious for hematologic abnormality. IF these do not reveal answers, then consider FNA Lung Bx and Lumbar Puncture Hyponatremia: resolved. Monitor Hx Bacteremia: repeat cultures have been negative to date. Hx of TB Prophylaxis: he was on INH upon admission but currently not on anything. Sputum x [address] Chest 01/26/17 shows no change when compared to 01/20/17 (please see full reports). 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 Aspirin Hx Constipation: resolved Anemia: stable Hx Hypothyroidism: levothyroxine Hx Vertigo: resolved and was likely secondary to the Minocycline that patient was on at the time of admission and once discontinued, this issue resolved and has not recurred Hx Diarrhea: resolved Hx Bilateral Lower Leg Edema: duplex are negative, much improved and now mild non-pitting edema involving the ankles Hx Elevated LFTs: resolved Patient has been getting up every 2 hours and performing 10 laps around the floor as instructed by me all week. Ian Gresham D.O.
[2017-02-13 07:27] LABS: BASO % 0.1 % (0.0-2.0); EOS # 0.9 K/uL (0.0-0.7); EOS % 3.7 % (0.0-4.0); LYMPH # 1.1 K/uL (1.0-4.3); LYMPH % 4.6 % (20.0-40.0); MEAN CELL VOLUME 83.2 fL (80.0-94.0); MEAN CORPUSCULAR HEMOGLOBIN 27.7 pg (27.0-31.0); MEAN CORPUSCULAR HGB CONC 33.3 g/dL (33.0-37.0); MEAN PLATELET VOLUME 7.8 fL (7.2-11.7); MONO # 0.3 K/uL (0.0-0.8); MONO % 1.3 % (0.0-10.0); PLATELET COUNT 503 K/uL (130-400); RED CELL DISTRIBUTION WIDTH 19.4 % (11.5-14.5); WHITE BLOOD COUNT 24.4 K/uL (4.8-10.8)
[2017-02-13 07:46] LABS: CHLORIDE 101 mmol/L (98-107); SODIUM 134 mmol/L (132-148)
[2017-02-13 07:49] LABS: ALB/GLOB RATIO 0.5 (1.0-2.1); ALKALINE PHOSPHATASE 154 U/L (38-126); ALT/SGPT 60 U/L (21-72); AST/SGOT 60 U/L (17-59); BILIRUBIN,TOTAL 0.4 mg/dL (0.2-1.3); BLOOD UREA NITROGEN 16 mg/dL (9-20); CARBON DIOXIDE 27 mmol/L (22-30); GFR AFRICAN-AMERICAN > 60; GLUCOSE,RANDOM 81 mg/dL (75-110); TOTAL PROTEIN 7.8 g/dL (6.3-8.3)
[2017-02-13 09:04] LABS: EOSINOPHIL 2 % (0-4); NEUTROPHIL 92 % (50-75); REACTIVE LYMPHOCYTES 1 % (0-0); TOTAL CELLS COUNTED 100
[2017-02-13] MEDS: Saccharomyces Boulardi 250 mg Cap PO SCH ×2 (09:36→17:30)
[2017-02-13] MEDS: guaiFENesin 600 mg ER Tab PO SCH ×2 (09:36→17:29)
[2017-02-13] MEDS ORDERED: cefTRIAXone 1 GM in Sodium Chloride 0.9% 100 ML IVPB SCH (10:00)
[2017-02-13] MEDS ORDERED: Fluconazole IV 200mg/100 ml NS 100 ML IVPB SCH (10:00)
[2017-02-13] MEDS: Tramadol 25 mg PO PRN (17:29)
[2017-02-13] MEDS: Promethazine/Cod 6.25mg-10mg/5ml Syr UD PO PRN (17:29)
--- NOTE | 2017-02-13 19:23 | CP.PCM.PN ---
Subjective - Date & Time of Evaluation Date of Evaluation: 02/13/17 Time of Evaluation: 08:00 - Subjective Subjective: fever less off antibiotics denies chest pain abd pain or diarrhea procalcitonin level < .05 low risk for sepsis await bone marrow bx reculture for fever Objective - Vital Signs/Intake and Output Vital Signs (last 24 hours): Temp Pulse Resp BP Pulse Ox 101.4 F H 95 H 18 125/78 100 02/13/17 18:59 02/13/17 18:58 02/13/17 15:39 02/13/17 15:39 02/13/17 15:39 Intake and Output: 02/13/17 02/14/17 18:59 06:59 Intake Total 600 Balance 600 - Medications Medications: Current Medications Acetaminophen (Tylenol 325mg Tab) 650 mg PO Q6 PRN PRN Reason: Fever >100.4 F Last Admin: 02/13/17 18:59 Dose: 650 mg Amiodarone HCl (Cordarone) 200 mg PO BID [facility] Last Admin: 02/13/17 17:29 Dose: 200 mg Guaifenesin (Mucinex La) 600 mg PO BID [facility] Last Admin: 02/13/17 17:29 Dose: 600 mg Ibuprofen (Motrin Tab) 600 mg PO Q6H PRN PRN Reason: fever Last Admin: 02/12/17 17:46 Dose: 600 mg Ipratropium [place] (Atrovent Hfa) 2 puff IH RQ6 PRN PRN Reason: Shortness of Breath Lactic Acid (Lac-Hydrin 12% Lotion (225 G)) 225 gm EXT Q1H PRN PRN Reason: Dry skin Last Admin: 02/04/17 18:34 Dose: 1 applic Levothyroxine Sodium (Synthroid) 88 mcg PO DAILY@0630 [facility] Last Admin: 02/13/17 05:56 Dose: 88 mcg Promethazine HCl/Codeine (Phenergan/Codeine Oral Syrup) 5 ml PO Q4 PRN PRN Reason: Cough Last Admin: 02/13/17 17:29 Dose: 5 ml Saccharomyces Boulardii (Florastor) 250 mg PO BID [facility] Last Admin: 02/13/17 17:30 Dose: 250 mg Tramadol HCl (Ultram) 25 mg PO BID PRN PRN Reason: Pain, moderate (4-7) Last Admin: 02/13/17 17:29 Dose: 25 mg - Labs Labs: 02/13/17 07:00 02/13/17 07:00 PT 13.2 SECONDS (9.7-12.2) H 01/20/17 19:37 INR 1.2 01/20/17 19:37 APTT 32 SECONDS (21-34) 01/20/17 19:37 Assessment and Plan (1) Allergic drug rash due to anti-infective agent Status: Acute (2) Aspiration into lower respiratory tract Status: Acute (3) PPD+ (purified protein derivative positive) Status: Acute
--- NOTE | 2017-02-13 19:33 | CP.PCM.PN ---
Subjective - Date & Time of Evaluation Date of Evaluation: 02/13/17 Time of Evaluation: 09:00 - Subjective Subjective: spiking fever again off antibiotics denies chest pain no diarrhea gallium scan pending awake alert cultures repeated- pending procalcitonin level again high Objective - Vital Signs/Intake and Output Vital Signs (last 24 hours): Temp Pulse Resp BP Pulse Ox 101.4 F H 95 H 18 125/78 100 02/13/17 18:59 02/13/17 18:58 02/13/17 15:39 02/13/17 15:39 02/13/17 15:39 Intake and Output: 02/13/17 02/14/17 18:59 06:59 Intake Total 600 Balance 600 - Medications Medications: Current Medications Acetaminophen (Tylenol 325mg Tab) 650 mg PO Q6 PRN PRN Reason: Fever >100.4 F Last Admin: 02/13/17 18:59 Dose: 650 mg Amiodarone HCl (Cordarone) 200 mg PO BID COUNTS INCLUDE 234 BEDS AT THE [facility] Last Admin: 02/13/17 17:29 Dose: 200 mg Guaifenesin (Mucinex La) 600 mg PO BID COUNTS INCLUDE 234 BEDS AT THE [facility] Last Admin: 02/13/17 17:29 Dose: 600 mg Ibuprofen (Motrin Tab) 600 mg PO Q6H PRN PRN Reason: fever Last Admin: 02/12/17 17:46 Dose: 600 mg Ipratropium [place] (Atrovent Hfa) 2 puff IH RQ6 PRN PRN Reason: Shortness of Breath Lactic Acid (Lac-Hydrin 12% Lotion (225 G)) 225 gm EXT Q1H PRN PRN Reason: Dry skin Last Admin: 02/04/17 18:34 Dose: 1 applic Levothyroxine Sodium (Synthroid) 88 mcg PO DAILY@0630 COUNTS INCLUDE 234 BEDS AT THE [facility] Last Admin: 02/13/17 05:56 Dose: 88 mcg Promethazine HCl/Codeine (Phenergan/Codeine Oral Syrup) 5 ml PO Q4 PRN PRN Reason: Cough Last Admin: 02/13/17 17:29 Dose: 5 ml Saccharomyces Boulardii (Florastor) 250 mg PO BID COUNTS INCLUDE 234 BEDS AT THE [facility] Last Admin: 02/13/17 17:30 Dose: 250 mg Tramadol HCl (Ultram) 25 mg PO BID PRN PRN Reason: Pain, moderate (4-7) Last Admin: 02/13/17 17:29 Dose: 25 mg - Labs Labs: 02/13/17 07:00 02/13/17 07:00 PT 13.2 SECONDS (9.7-12.2) H 01/20/17 19:37 INR 1.2 01/20/17 19:37 APTT 32 SECONDS (21-34) 01/20/17 19:37 - Constitutional Appears: Non-toxic, Cachectic, Chronically Ill - Head Exam Head Exam: NORMOCEPHALIC - Eye Exam Eye Exam: PERRL - ENT Exam ENT Exam: Mucous Membranes Dry - Respiratory Exam Respiratory Exam: Decreased Breath Sounds, Rhonchi - Cardiovascular Exam Cardiovascular Exam: REGULAR RHYTHM - GI/Abdominal Exam GI & Abdominal Exam: Distended, Soft - Rectal Exam Rectal Exam: Deferred - Exam Exam: NORMAL INSPECTION Assessment and Plan (1) Aspiration into lower respiratory tract Status: Acute (2) PPD+ (purified protein derivative positive) Status: Acute (3) Fever of unknown origin Status: Acute - Assessment and Plan (Free Text) Assessment: will restart antibiotic rx vanco/azactam
[2017-02-13] MEDS ORDERED: Vancomycin 1 gm/NS 200 ml 1 GM/200 ML BAG IVPB SCH (20:00)
[2017-02-13] MEDS ORDERED: Aztreonam 2 GM in Sodium Chloride 0.9% 100 ML IVPB SCH (20:00)
[2017-02-13 20:37] LABS: AB TO F ANTIGEN NEGATIVE; AB TO TP ANTIGEN NEGATIVE
[2017-02-13] MEDS: Aztreonam 2 GM in Sodium Chloride 0.9% 100 ML IVPB SCH (22:31)
[2017-02-14] MEDS: Vancomycin 1 gm/NS 200 ml 1 GM/200 ML BAG IVPB SCH ×3 (00:26→23:51)
[2017-02-14] MEDS: Levothyroxine 88 MCG TAB PO SCH (06:08)
[2017-02-14] MEDS: Aztreonam 2 GM in Sodium Chloride 0.9% 100 ML IVPB SCH ×3 (06:09→21:01)
[2017-02-14 06:22] LABS: BASO % 0.1 % (0.0-2.0); EOS # 0.5 K/uL (0.0-0.7); EOS % 1.8 % (0.0-4.0); HEMATOCRIT 29.2 % (35.0-51.0); LYMPH # 0.9 K/uL (1.0-4.3); LYMPH % 3.3 % (20.0-40.0); MEAN CORPUSCULAR HEMOGLOBIN 27.3 pg (27.0-31.0); MEAN CORPUSCULAR HGB CONC 32.9 g/dL (33.0-37.0); MEAN PLATELET VOLUME 7.9 fL (7.2-11.7); MONO # 0.2 K/uL (0.0-0.8); MONO % 0.7 % (0.0-10.0); PLATELET COUNT 539 K/uL (130-400); RED CELL DISTRIBUTION WIDTH 19.2 % (11.5-14.5); WHITE BLOOD COUNT 26.8 K/uL (4.8-10.8)
[2017-02-14 06:32] LABS: CHLORIDE 100 mmol/L (98-107); POTASSIUM 4.5 mmol/L (3.6-5.2); SODIUM 132 mmol/L (132-148)
[2017-02-14 06:34] LABS: BILIRUBIN,TOTAL 0.4 mg/dL (0.2-1.3); GFR AFRICAN-AMERICAN > 60
[2017-02-14 06:35] LABS: ALB/GLOB RATIO 0.5 (1.0-2.1); ALKALINE PHOSPHATASE 179 U/L (38-126); ALT/SGPT 64 U/L (21-72); AST/SGOT 58 U/L (17-59); BLOOD UREA NITROGEN 21 mg/dL (9-20); CALCIUM 8.2 mg/dl (8.6-10.4); CARBON DIOXIDE 25 mmol/L (22-30); GLUCOSE,RANDOM 93 mg/dL (75-110); TOTAL PROTEIN 7.8 g/dL (6.3-8.3)
[2017-02-14] MEDS ORDERED: Ipratropium 17 mcg/puff-200 puff/12.5 gm HFA Inh IH PRN (08:00)
[2017-02-14 09:16] LABS: EOSINOPHIL 1 % (0-4); NEUTROPHIL 91 % (50-75); TOTAL CELLS COUNTED 100
[2017-02-14 09:18] LABS: LARGE PLATELETS PRESENT
--- NOTE | 2017-02-14 09:30 | CP.PCM.PN ---
<Terell Christiansen - Last Filed: 02/14/17 09:23> Subjective - Date & Time of Evaluation Date of Evaluation: 02/14/17 Time of Evaluation: 09:00 - Subjective Subjective: PGY3 on medicine Dr. Gresham service: Pt seen and examined at bedside this morning. Complains of fever last night, 100.8 per chart. Pt also said he has been having neck pain for several weeks and pain with swallowing. S/P bronchoscopy 01/30/17. Pt however was able to tolerate diet fine and have normal BM. Overnight Benadryl was given for itchiness secondary to Vancomycin. Objective - Vital Signs/Intake and Output Vital Signs (last 24 hours): Temp Pulse Resp BP Pulse Ox 100.9 F H 87 18 103/54 L 97 02/14/17 07:25 02/14/17 07:25 02/14/17 07:25 02/14/17 07:25 02/14/17 07:25 Intake and Output: 02/14/17 02/14/17 06:59 18:59 Intake Total 300 Output Total 700 Balance -400 - Medications Medications: Current Medications Acetaminophen (Tylenol 325mg Tab) 650 mg PO Q6 PRN PRN Reason: Fever >100.4 F Last Admin: 02/14/17 03:27 Dose: 650 mg Amiodarone HCl (Cordarone) 200 mg PO BID [facility] Last Admin: 02/13/17 17:29 Dose: 200 mg Guaifenesin (Mucinex La) 600 mg PO BID [facility] Last Admin: 02/13/17 17:29 Dose: 600 mg Aztreonam 2 gm/ Sodium (Chloride) 100 mls @ 100 mls/hr IVPB Q8H [facility] Last Admin: 02/14/17 06:09 Dose: 100 mls/hr Vancomycin/Sodium Chloride (Vancocin) 1 gm in 200 mls @ 133 mls/hr IVPB Q12H [facility] Stop: 02/19/17 00:01 Last Admin: 02/14/17 00:26 Dose: 133 mls/hr Ibuprofen (Motrin Tab) 600 mg PO Q6H PRN PRN Reason: fever Last Admin: 02/12/17 17:46 Dose: 600 mg Ipratropium [place] (Atrovent Hfa) 2 puff IH RQ6 PRN PRN Reason: Shortness of Breath Lactic Acid (Lac-Hydrin 12% Lotion (225 G)) 225 gm EXT Q1H PRN PRN Reason: Dry skin Last Admin: 02/04/17 18:34 Dose: 1 applic Levothyroxine Sodium (Synthroid) 88 mcg PO DAILY@0630 [facility] Last Admin: 02/14/17 06:08 Dose: 88 mcg Promethazine HCl/Codeine (Phenergan/Codeine Oral Syrup) 5 ml PO Q4 PRN PRN Reason: Cough Last Admin: 02/13/17 17:29 Dose: 5 ml Saccharomyces Boulardii (Florastor) 250 mg PO BID [facility] Last Admin: 02/13/17 17:30 Dose: 250 mg Tramadol HCl (Ultram) 25 mg PO BID PRN PRN Reason: Pain, moderate (4-7) Last Admin: 02/13/17 17:29 Dose: 25 mg - Labs Labs: 02/14/17 06:07 02/14/17 06:07 PT 13.2 SECONDS (9.7-12.2) H 01/20/17 19:37 INR 1.2 01/20/17 19:37 APTT 32 SECONDS (21-34) 01/20/17 19:37 - Constitutional Appears: Non-toxic, No Acute Distress - Head Exam Head Exam: NORMOCEPHALIC - Eye Exam Eye Exam: Normal appearance Pupil Exam: NORMAL ACCOMODATION - ENT Exam ENT Exam: Mucous Membranes Moist - Neck Exam Neck Exam: Tenderness, Thyromegaly - Respiratory Exam Respiratory Exam: Clear to Ausculation Bilateral, NORMAL BREATHING PATTERN. absent: Wheezes - Cardiovascular Exam Cardiovascular Exam: REGULAR RHYTHM, +S1, +S2. absent: Gallop - GI/Abdominal Exam GI & Abdominal Exam: Soft, Normal Bowel Sounds. absent: Tenderness - Neurological Exam Neurological Exam: Alert, Awake, Oriented x3 - Psychiatric Exam Psychiatric exam: Normal Mood - Skin Skin Exam: Dry, Intact Assessment and Plan - Assessment and Plan (Free Text) Assessment: Leukocytosis * Bronch - Marcella and Coag negative staph from Bronchial washing * Blood culture - 8/24 - negative x24 hours * Urine Culture - 8/24 - negative * Sputum culture - 8/24 - gram negative rods * Previous Sputum Culture - Raoultella Planticola, Enterobacter Cloacae * Abx started as per Dr. Calzada, Aztreonam 2g IV q8 and Vancomycin 1g IV q12H started 02/14. Benadryl was given overnight for itchiness secondary to Vancomycin. * F/U repeat CXR Myalgia * New onset b/l upper extremity pain when he flexes the arms, more on the right than the left assoc with headache * significantly decreased muscle strength bilaterally in the upper extremity * Last head CT/Brain MRI was unremarkable * MRI of the spine - No epidural abscess. Bone marrow signaling abnormal. Consider hematopoietic process Fever * Heme ([place]) - F/U Bone Marrow Bx - no abnormal myeloid maturation or increased blasts, no lymphoproliferative disorder or plasma cell dyscrasia * Anerobic culture negative * Autoimmune Workup - F/U * dsDNA - <1 * Anti-Montelongo - <1 * CHAVA - 1:160, Speckled H, + ANA6 * C-ANCA - negative * P-ANCA - negative * MPO Ab - <1 * PR3 - <1 * Aspergillus - F/U * High fever of 100.8 overnight, Abx resumed per Dr. Calzada. History of hypothyroidism * Synthroid 88mcg PO daily * TSH 9.9 on 01/26 * Will recheck thyroid panel and antibodies * F/U thyroid ultrasound Vtach * Stable * Patient Had Rapid called on 01/26 for Vtach - was asx * Cath on 01/27 - Normal coronaries, normal EF by echo * Started on Metoprolol 25 Q6H * Echo - EF 65-70 * Stopped therapeutic Lovenox * 01/30 Another episode of Asx Vtach (13 beats), Cards (Voudouris) started Cordarone 200mg PO BID Hx of TB PPX * On INH at admission, no longer on anything * Sputum x 3 negative * Repeat CT Chest 01/26/17 shows no change when compared to 01/20/17 <Ian Gresham - Last Filed: 02/14/17 17:26> Objective - Vital Signs/Intake and Output Vital Signs (last 24 hours): Temp Pulse Resp BP Pulse Ox 98.2 F 98 H 20 90/49 L 98 02/14/17 16:12 02/14/17 16:12 02/14/17 16:12 02/14/17 16:12 02/14/17 16:12 Intake and Output: 02/14/17 02/14/17 06:59 18:59 Intake Total 300 Output Total 700 Balance -400 - Medications Medications: Current Medications Acetaminophen (Tylenol 325mg Tab) 650 mg PO Q6 PRN PRN Reason: Fever >100.4 F Last Admin: 02/14/17 09:51 Dose: 650 mg Amiodarone HCl (Cordarone) 200 mg PO BID [facility] Last Admin: 02/14/17 09:53 Dose: 200 mg Guaifenesin (Mucinex La) 600 mg PO BID [facility] Last Admin: 02/14/17 17:12 Dose: 600 mg Aztreonam 2 gm/ Sodium (Chloride) 100 mls @ 100 mls/hr IVPB Q8H [facility] Last Admin: 02/14/17 14:58 Dose: 100 mls/hr Vancomycin/Sodium Chloride (Vancocin) 1 gm in 200 mls @ 133 mls/hr IVPB Q12H [facility] Stop: 02/19/17 00:01 Last Admin: 02/14/17 13:49 Dose: 133 mls/hr Ibuprofen (Motrin Tab) 600 mg PO Q6H PRN PRN Reason: fever Last Admin: 02/12/17 17:46 Dose: 600 mg Ipratropium [place] (Atrovent Hfa) 2 puff IH RQ6 PRN PRN Reason: Shortness of Breath Lactic Acid (Lac-Hydrin 12% Lotion (225 G)) 225 gm EXT Q1H PRN PRN Reason: Dry skin Last Admin: 02/04/17 18:34 Dose: 1 applic Levothyroxine Sodium (Synthroid) 88 mcg PO DAILY@0630 [facility] Last Admin: 02/14/17 06:08 Dose: 88 mcg Promethazine HCl/Codeine (Phenergan/Codeine Oral Syrup) 5 ml PO Q4 PRN PRN Reason: Cough Last Admin: 02/13/17 17:29 Dose: 5 ml Saccharomyces Boulardii (Florastor) 250 mg PO BID [facility] Last Admin: 02/14/17 17:12 Dose: 250 mg Tramadol HCl (Ultram) 25 mg PO BID PRN PRN Reason: Pain, moderate (4-7) Last Admin: 02/14/17 09:51 Dose: 25 mg - Labs Labs: 02/14/17 06:07 02/14/17 06:07 PT 13.2 SECONDS (9.7-12.2) H 01/20/17 19:37 INR 1.2 01/20/17 19:37 APTT 32 SECONDS (21-34) 01/20/17 19:37 Attending/Attestation - Attestation I have personally seen and examined this patient.: Yes I have fully participated in the care of the patient.: Yes I have reviewed all pertinent clinical information, including history, physical exam and plan: Yes Notes (Text): 02/14/17 17:18 Patient was seen and examined on 02/14/17 at 2:30 PM ROS: States that he did not have cough all last night like on previous night Subjective fever at night with sweats continue Chills continue and states that he feels cold in his extremities right now (he is receiving a premixed bag of Vancomycin that is cold currently and this may account for the sensation) Moving his bowels Exam: General: AAOx3, NAD HEENT: NCA, EOMI, PERRLA, NO cervical/supraclavicular/submandibular lymphadenopathy, NO pharyngeal erythema/exudate, Mucous Membranes are moist, Nasal Turbinates are nonedematous/nonerythematous Cardio: NS1 and NS2, NO M/R/G Respiratory: Faint inspiratory bibasilar inspiratory crackles GI: BSx4, Soft, NT, ND, NO HSM, NO guarding/rebound tenderness Ext: mild nonpitting edema involving the bilateral ankles, Pulses are strong and equal, Capillary Refill is 2 seconds Neuro: CN II through XII are grossly intact Assessments: Hx Elevated Troponin: likely secondary to episode of V Tach. Cardiac Cath performed by Dr. Pryor 01/27/17 showed clean coronaries. Therapeutic Lovenox was discontinued. Luekocytosis with Fever: repeat blood cultures negative, Sputum x 3 negative[address] Spoke with ID Dr. Calzada who was coverning for Dr. Carias and he recommended Bronchial Washing with cultures. Spoke with Retail Delivery Driver Dr. Mckeon (as picture copyist Dr. Barrow has not responded to our calls to see this patient) and he had planned to perform bronchoscopy for morning 01/28/17. However , OR schedule did not free up, therefore Dr. Mckeon to schedule the bronchoscopy/ bronchial washing for Thursday01/30/17 and this was performed: culture showed Marcella albicans and Coag Neg Staph and Sputum AFB is negative. He was started on Diflucan 200 mg IV on 02/03/17 and treated through 02/13/17. Blood and Urine Cultures from 02/07/17 are negative. Sputum Culture 02/07/17 showed Raoultella planticola and Enterobacter cloacae and patient was on Ceftriaxone from 02/03/17 through 02/13/17. S/P Bone Marrow Bx 02/10/17 and Bone Marrow Cultures are currently negative. F/U Bone Marrow Bx Pathology F/U Autoimmune Workup. Diflucan and Ceftriaxone which the patient had been on since 02/03/17 were discontinued by ID on 02/13/17. ID Dr. Calzada then restarted Aztreonam 2 gm IV Q8H and Vancomycin 1 gm IV Q12H on 02/14/17 MRI Thoracic and Cervical Spine 02/12/17 did not reveal any abscesses but did now show abnormal signal on the vertebrae suspicious for hematologic abnormality. Patient is pending a Gallium Scan: Nuclear Medicine Team was not present today right after my exam and I will speak with them on the morning of 02/15/17 to see exactly what type of prep (if any) is needed prior to the exam. Consider FNA Lung Bx and Lumbar Puncture Hyponatremia: resolved. Monitor Hx Bacteremia: repeat cultures have been negative to date. Hx of TB Prophylaxis: he was on INH upon admission but currently not on anything. Sputum x [address] Chest 01/26/17 shows no change when compared to 01/20/17 (please see full reports). 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 Aspirin Hx Constipation: resolved Anemia: stable Hx Hypothyroidism: levothyroxine Hx Vertigo: resolved and was likely secondary to the Minocycline that patient was on at the time of admission and once discontinued, this issue resolved and has not recurred Hx Diarrhea: resolved Hx Bilateral Lower Leg Edema: duplex are negative, much improved and now mild non-pitting edema involving the ankles Hx Elevated LFTs: resolved Patient has been getting up every 2 hours and performing 10 laps around the floor as instructed by me all week. I spoke with Nurse Aleksandra to make sure that in the future the patient does not receive premixed Vancomycin as it is usually refrigerated and cold and it seems that this is the likely cause of the patient's complaints as mentioned in the ROS above. Ian rGesham D.O.
[2017-02-14] MEDS: Saccharomyces Boulardi 250 mg Cap PO SCH ×2 (09:51→17:12)
[2017-02-14] MEDS: Tramadol 25 mg PO PRN (09:51)
[2017-02-14] MEDS: guaiFENesin 600 mg ER Tab PO SCH ×2 (09:53→17:12)
--- NOTE | 2017-02-14 11:17 | US ---
HISTORY: tender thyroids TECHNIQUE: Sonographic evaluation of the thyroid gland. COMPARISON: Chest CT 02/03/2017 FINDINGS: RIGHT LOBE: Measures 5.1 x 1.7 x 1.7 cm. Normal echotexture and flow. Nodules: None LEFT LOBE: Measures 4.6 x 1.5 x 1.5 cm. Normal echotexture and flow. Nodules: None ISTHMUS: Measures 3.5 mm. Normal echotexture and flow. Nodules: None OTHER FINDINGS: None . IMPRESSION: Unremarkable thyroid sonogram.
--- NOTE | 2017-02-14 12:45 | RAD ---
HISTORY: r/o pneumonia COMPARISON: Portable chest 01/30/2017 TECHNIQUE: Chest PA and lateral FINDINGS: LUNGS: Persistent bilateral atelectasis or infiltrates are not changed in the interval. . No definite significant interval change is appreciated. PLEURA: Is difficulty to exclude minimal bilateral pleural effusions. No interval pneumothorax. CARDIOVASCULAR: Normal. OSSEOUS STRUCTURES: No significant abnormalities. VISUALIZED UPPER ABDOMEN: Normal. OTHER FINDINGS: None. IMPRESSION: Persistent bilateral basilar atelectasis or infiltrates are seen in. No significant interval cardiovascular changes. Trace bilateral pleural effusions are not excluded.
[2017-02-14] MEDS: Promethazine/Cod 6.25mg-10mg/5ml Syr UD PO PRN (18:15)
[2017-02-15] MEDS: Levothyroxine 88 MCG TAB PO SCH (05:30)
[2017-02-15] MEDS: Aztreonam 2 GM in Sodium Chloride 0.9% 100 ML IVPB SCH ×3 (05:30→21:41)
[2017-02-15 07:15] LABS: BASO % 0.2 % (0.0-2.0); EOS % 5.3 % (0.0-4.0); HEMATOCRIT 26.1 % (35.0-51.0); LYMPH # 1.4 K/uL (1.0-4.3); LYMPH % 7.6 % (20.0-40.0); MEAN CELL VOLUME 82.5 fL (80.0-94.0); MEAN CORPUSCULAR HEMOGLOBIN 27.4 pg (27.0-31.0); MEAN CORPUSCULAR HGB CONC 33.1 g/dL (33.0-37.0); MEAN PLATELET VOLUME 7.8 fL (7.2-11.7); MONO # 0.3 K/uL (0.0-0.8); MONO % 1.6 % (0.0-10.0); PLATELET COUNT 483 K/uL (130-400); RED CELL DISTRIBUTION WIDTH 19.1 % (11.5-14.5); WHITE BLOOD COUNT 18.1 K/uL (4.8-10.8)
[2017-02-15 07:42] LABS: CHLORIDE 97 mmol/L (98-107); POTASSIUM 4.3 mmol/L (3.6-5.2); SODIUM 129 mmol/L (132-148)
[2017-02-15 07:44] LABS: AST/SGOT 81 U/L (17-59); BILIRUBIN,TOTAL 0.5 mg/dL (0.2-1.3); CARBON DIOXIDE 26 mmol/L (22-30); GFR AFRICAN-AMERICAN > 60
[2017-02-15 07:45] LABS: ALB/GLOB RATIO 0.5 (1.0-2.1); ALKALINE PHOSPHATASE 202 U/L (38-126); ALT/SGPT 79 U/L (21-72); BLOOD UREA NITROGEN 21 mg/dL (9-20); CALCIUM 7.8 mg/dl (8.6-10.4); GLUCOSE,RANDOM 94 mg/dL (75-110); TOTAL PROTEIN 7.3 g/dL (6.3-8.3)
[2017-02-15 07:58] LABS: FT3 1.58 pg/mL (2.77-5.27)
[2017-02-15 08:51] LABS: THYROID STIMULATING HORMONE 7.32 mIU/L (0.46-4.68)
--- NOTE | 2017-02-15 10:10 | CP.PCM.PN ---
<Terell Christiansen - Last Filed: 02/15/17 09:58> Subjective - Date & Time of Evaluation Date of Evaluation: 02/15/17 Time of Evaluation: 09:00 - Subjective Subjective: PGY3 on medicine Dr. Gresham service: Pt seen and examined at bedside this morning. Overnight Tmax 102 noted. Pt complains of chills at the moment but no other acute complaints. Objective - Vital Signs/Intake and Output Vital Signs (last 24 hours): Temp Pulse Resp BP Pulse Ox 98.7 F 68 18 104/40 L 97 02/15/17 07:25 02/15/17 07:25 02/15/17 07:25 02/15/17 07:25 02/15/17 07:25 - Medications Medications: Current Medications Acetaminophen (Tylenol 325mg Tab) 650 mg PO Q6 PRN PRN Reason: Fever >100.4 F Last Admin: 02/15/17 05:31 Dose: 650 mg Amiodarone HCl (Cordarone) 200 mg PO BID [facility] Last Admin: 02/14/17 18:15 Dose: 200 mg Guaifenesin (Mucinex La) 600 mg PO BID [facility] Last Admin: 02/14/17 17:12 Dose: 600 mg Aztreonam 2 gm/ Sodium (Chloride) 100 mls @ 100 mls/hr IVPB Q8H [facility] Last Admin: 02/15/17 05:30 Dose: 100 mls/hr Vancomycin/Sodium Chloride (Vancocin) 1 gm in 200 mls @ 133 mls/hr IVPB Q12H [facility] Stop: 02/19/17 00:01 Last Admin: 02/14/17 23:51 Dose: 133 mls/hr Ibuprofen (Motrin Tab) 600 mg PO Q6H PRN PRN Reason: fever Last Admin: 02/12/17 17:46 Dose: 600 mg Ipratropium [place] (Atrovent Hfa) 2 puff IH RQ6 PRN PRN Reason: Shortness of Breath Lactic Acid (Lac-Hydrin 12% Lotion (225 G)) 225 gm EXT Q1H PRN PRN Reason: Dry skin Last Admin: 02/04/17 18:34 Dose: 1 applic Levothyroxine Sodium (Synthroid) 88 mcg PO DAILY@0630 [facility] Last Admin: 02/15/17 05:30 Dose: 88 mcg Ondansetron HCl (Zofran Inj) 4 mg IVP Q6H PRN PRN Reason: nausea Last Admin: 02/14/17 18:46 Dose: 4 mg Promethazine HCl/Codeine (Phenergan/Codeine Oral Syrup) 5 ml PO Q4 PRN PRN Reason: Cough Last Admin: 02/14/17 18:15 Dose: 5 ml Saccharomyces Boulardii (Florastor) 250 mg PO BID [facility] Last Admin: 02/14/17 17:12 Dose: 250 mg Tramadol HCl (Ultram) 25 mg PO BID PRN PRN Reason: Pain, moderate (4-7) Last Admin: 02/14/17 09:51 Dose: 25 mg - Labs Labs: 02/15/17 07:08 02/15/17 07:08 PT 13.2 SECONDS (9.7-12.2) H 01/20/17 19:37 INR 1.2 01/20/17 19:37 APTT 32 SECONDS (21-34) 01/20/17 19:37 - Constitutional Appears: Non-toxic, No Acute Distress, Chronically Ill - Head Exam Head Exam: NORMOCEPHALIC - Eye Exam Eye Exam: Normal appearance - Respiratory Exam Respiratory Exam: Clear to Ausculation Bilateral, NORMAL BREATHING PATTERN. absent: Wheezes - Cardiovascular Exam Cardiovascular Exam: REGULAR RHYTHM, +S1, +S2. absent: Gallop, Rubs - GI/Abdominal Exam GI & Abdominal Exam: Soft, Normal Bowel Sounds. absent: Tenderness - Neurological Exam Neurological Exam: Alert, Awake, Oriented x3 - Psychiatric Exam Psychiatric exam: Normal Mood - Skin Additional comments: numerous neurofibromas Assessment and Plan - Assessment and Plan (Free Text) Assessment: Leukocytosis * Bronch - Marcella and Coag negative staph from Bronchial washing * Blood culture - 02/12 - negative x24 hours * Urine Culture - 02/12 - negative * Sputum culture - 02/12 - Hafnia alvei, sensitive to Aztreonam * Previous Sputum Culture - Raoultella Planticola, Enterobacter Cloacae * Abx started as per Dr. Calzada, Aztreonam 2g IV q8 and Vancomycin 1g IV q12H started 02/14. Benadryl was given overnight for itchiness secondary to Vancomycin. * F/U gallium scan, which will be done today per [place] Myalgia * New onset b/l upper extremity pain when he flexes the arms, more on the right than the left assoc with headache * significantly decreased muscle strength bilaterally in the upper extremity * Last head CT/Brain MRI was unremarkable * MRI of the spine - No epidural abscess. Bone marrow signaling abnormal. Consider hematopoietic process Fever * Heme ([place]) - F/U Bone Marrow Bx - no abnormal myeloid maturation or increased blasts, no lymphoproliferative disorder or plasma cell dyscrasia * Anerobic culture negative * Autoimmune Workup - F/U * dsDNA - <1 * Anti-Montelongo - <1 * CHAVA - 1:160, Speckled H, + ANA6 * C-ANCA - negative * P-ANCA - negative * MPO Ab - <1 * PR3 - <1 * Aspergillus - negative * High fever of 100.8 overnight, Abx resumed per Dr. Calzada. History of hypothyroidism * Synthroid 88mcg PO daily * TSH 9.9 on 01/26 * Will recheck thyroid panel and antibodies * Thyroid ultrasound unremarkable Vtach * Stable * Patient Had Rapid called on 01/26 for Vtach - was asx * Cath on 01/27 - Normal coronaries, normal EF by echo * Started on Metoprolol 25 Q6H * Echo - EF 65-70 * Stopped therapeutic Lovenox * 01/30 Another episode of Asx Vtach (13 beats), Cards (Voudouris) started Cordarone 200mg PO BID Hx of TB PPX * On INH at admission, no longer on anything * Sputum x 3 negative * Repeat CT Chest 01/26/17 shows no change when compared to 01/20/17 <Ian Gresham - Last Filed: 02/15/17 16:03> Objective - Vital Signs/Intake and Output Vital Signs (last 24 hours): Temp Pulse Resp BP Pulse Ox 98.7 F 68 18 104/40 L 97 02/15/17 07:25 02/15/17 07:25 02/15/17 07:25 02/15/17 07:25 02/15/17 07:25 Intake and Output: 02/15/17 02/15/17 06:59 18:59 Intake Total 300 Balance 300 - Medications Medications: Current Medications Acetaminophen (Tylenol 325mg Tab) 650 mg PO Q6 PRN PRN Reason: Fever >100.4 F Last Admin: 08/27/17 10:17 Dose: 650 mg Amiodarone HCl (Cordarone) 200 mg PO BID [facility] Last Admin: 02/15/17 10:14 Dose: 200 mg Guaifenesin (Mucinex La) 600 mg PO BID [facility] Last Admin: 02/15/17 10:14 Dose: 600 mg Aztreonam 2 gm/ Sodium (Chloride) 100 mls @ 100 mls/hr IVPB Q8H [facility] Last Admin: 02/15/17 13:35 Dose: 100 mls/hr Vancomycin/Sodium Chloride (Vancocin) 1 gm in 200 mls @ 133 mls/hr IVPB Q12H [facility] Stop: 02/19/17 00:01 Last Admin: 02/15/17 12:56 Dose: 133 mls/hr Ibuprofen (Motrin Tab) 600 mg PO Q6H PRN PRN Reason: fever Last Admin: 02/12/17 17:46 Dose: 600 mg Ipratropium [place] (Atrovent Hfa) 2 puff IH RQ6 PRN PRN Reason: Shortness of Breath Lactic Acid (Lac-Hydrin 12% Lotion (225 G)) 225 gm EXT Q1H PRN PRN Reason: Dry skin Last Admin: 02/04/17 18:34 Dose: 1 applic Levothyroxine Sodium (Synthroid) 88 mcg PO DAILY@0630 [facility] Last Admin: 02/15/17 05:30 Dose: 88 mcg Magnesium Citrate (Citrate Of Mag) 300 ml PO ONCE ONE Stop: 02/15/17 19:01 Ondansetron HCl (Zofran Inj) 4 mg IVP Q6H PRN PRN Reason: nausea Last Admin: 02/14/17 18:46 Dose: 4 mg Promethazine HCl/Codeine (Phenergan/Codeine Oral Syrup) 5 ml PO Q4 PRN PRN Reason: Cough Last Admin: 02/14/17 18:15 Dose: 5 ml Saccharomyces Boulardii (Florastor) 250 mg PO BID [facility] Last Admin: 02/15/17 10:13 Dose: 250 mg Tramadol HCl (Ultram) 25 mg PO BID PRN PRN Reason: Pain, moderate (4-7) Last Admin: 02/14/17 09:51 Dose: 25 mg - Labs Labs: 02/15/17 07:08 02/15/17 07:08 PT 13.2 SECONDS (9.7-12.2) H 01/20/17 19:37 INR 1.2 01/20/17 19:37 APTT 32 SECONDS (21-34) 01/20/17 19:37 Attending/Attestation - Attestation I have personally seen and examined this patient.: Yes I have fully participated in the care of the patient.: Yes I have reviewed all pertinent clinical information, including history, physical exam and plan: Yes Notes (Text): 02/15/17 15:54 Patient was seen and examined on 02/14/17 at 12:15 PM ROS: States that he did not have cough all last night like on previous nights Subjective fever at night with sweats continue Moving his bowels Exam: General: AAOx3, NAD HEENT: NCA, EOMI, PERRLA, NO cervical/supraclavicular/submandibular lymphadenopathy, NO pharyngeal erythema/exudate, Mucous Membranes are moist, Nasal Turbinates are nonedematous/nonerythematous Cardio: NS1 and NS2, NO M/R/G Respiratory: Faint inspiratory bibasilar inspiratory crackles GI: BSx4, Soft, NT, ND, NO HSM, NO guarding/rebound tenderness Ext: mild nonpitting edema involving the bilateral ankles, Pulses are strong and equal, Capillary Refill is 2 seconds Neuro: CN II through XII are grossly intact Assessment and Plan: 1). Luekocytosis with Fever: repeat blood cultures negative, Sputum x 3 negative. Spoke with ID Dr. Calzada who was coverning for Dr. Carias and he recommended Bronchial Washing with cultures. Spoke with Advertisement Distributor Dr. Mckeon ( as head porter baggage Dr. Barrow has not responded to our calls to see this patient) and he had planned to perform bronchoscopy for morning 01/28/17. However , OR schedule did not free up, therefore Dr. Mckeon to schedule the bronchoscopy/ bronchial washing for Thursday01/30/17 and this was performed: culture showed Marcella albicans and Coag Neg Staph and Sputum AFB is negative. He was started on Diflucan 200 mg IV on 02/03/17 and treated through 02/13/17. Blood and Urine Cultures from 02/07/17 are negative. Sputum Culture 02/07/17 showed Raoultella planticola and Enterobacter cloacae and patient was on Ceftriaxone from 02/03/17 through 02/13/17. S/P Bone Marrow Bx 02/10/17 and Bone Marrow Cultures are currently negative. F/U Bone Marrow Bx Pathology F/U Autoimmune Workup. 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 Diflucan and Ceftriaxone which the patient had been on since 02/03/17 were discontinued by ID on 02/13/17. ID Dr. Calzada then restarted Aztreonam 2 gm IV Q8H and Vancomycin 1 gm IV Q12H on 02/14/17 MRI Thoracic and Cervical Spine 02/12/17 did not reveal any abscesses but did now show abnormal signal on the vertebrae suspicious for hematologic abnormality. Patient had Gallium Scan Part #1 on 02/15/17 and Part #2 is planned for 02/16/17. Citrate of Magnesium 300 mls x 1 dose has been ordered for 7 PM 02/15/17 as recommmended by the Nuclear Medicine Department Consider FNA Lung Bx, Lumbar Puncture, and NEVAEH should the pathology for the Bone Marrow biopsy or the Gallium Scan not reveal anything. Patient was updated as to plan concerning this issue through [place] Translation with the help of Nurse Lu 2). Hx Elevated Troponin: likely secondary to episode of V Tach. Cardiac Cath performed by Dr. Pryor 01/27/17 showed clean coronaries. Therapeutic Lovenox was discontinued. 3). Hyponatremia: resolved. Monitor 4). Hx Bacteremia: repeat cultures have been negative to date. 5). Hx of TB Prophylaxis: he was on INH upon admission but currently not on anything. Sputum x [address] Chest 01/26/17 shows no change when compared to 01/20/17 (please see full reports). 6). Hx Diffuse Rash: resolved 7). Hx Pancreatic Lesion: F/U CT Abdomen in 6 months 8). 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 Aspirin 9). Hx Constipation: resolved 10). Anemia likely secondary to Chronic Disease: stable 11). Hx Hypothyroidism: levothyroxine 12). Hx Vertigo: resolved and was likely secondary to the Minocycline that patient was on at the time of admission and once discontinued, this issue resolved and has not recurred 13). Hx Diarrhea: resolved 14). Hx Bilateral Lower Leg Edema: duplex are negative, much improved and now mild non-pitting edema involving the ankles 15). Hx Elevated LFTs: resolved Patient has been getting up every 2 hours and performing 10 laps around the floor as instructed by me all week. Medicine Team should encourage patient to continue to do this. Ian Gresham D.O.
[2017-02-15] MEDS: Saccharomyces Boulardi 250 mg Cap PO SCH ×2 (10:13→17:24)
[2017-02-15] MEDS: guaiFENesin 600 mg ER Tab PO SCH ×2 (10:14→17:24)
[2017-02-15 11:25] LABS: EOSINOPHIL 6 % (0-4); NEUTROPHIL 77 % (50-75); REACTIVE LYMPHOCYTES 2 % (0-0); TOTAL CELLS COUNTED 100
[2017-02-15 11:30] LABS: LARGE PLATELETS PRESENT
[2017-02-15] MEDS: Vancomycin 1 gm/NS 200 ml 1 GM/200 ML BAG IVPB SCH (12:56)
[2017-02-15] MEDS ORDERED: Magnesium Citrate Oral SOL (300 ml) PO ONE (19:00)
[2017-02-16] MEDS: Vancomycin 1 gm/NS 200 ml 1 GM/200 ML BAG IVPB SCH ×2 (00:12→11:18)
[2017-02-16] MEDS: Levothyroxine 88 MCG TAB PO SCH (05:30)
[2017-02-16] MEDS: Aztreonam 2 GM in Sodium Chloride 0.9% 100 ML IVPB SCH ×3 (05:30→21:32)
[2017-02-16 06:27] LABS: BASO % 0.4 % (0.0-2.0); EOS # 1.1 K/uL (0.0-0.7); EOS % 8.3 % (0.0-4.0); HEMATOCRIT 25.1 % (35.0-51.0); LYMPH # 1.7 K/uL (1.0-4.3); LYMPH % 13.1 % (20.0-40.0); MEAN CELL VOLUME 83.3 fL (80.0-94.0); MEAN CORPUSCULAR HEMOGLOBIN 27.3 pg (27.0-31.0); MEAN CORPUSCULAR HGB CONC 32.8 g/dL (33.0-37.0); MEAN PLATELET VOLUME 7.9 fL (7.2-11.7); MONO # 0.4 K/uL (0.0-0.8); MONO % 2.8 % (0.0-10.0); RED CELL DISTRIBUTION WIDTH 19.2 % (11.5-14.5); WHITE BLOOD COUNT 12.6 K/uL (4.8-10.8)
[2017-02-16 06:49] LABS: ALB/GLOB RATIO 0.5 (1.0-2.1); ALKALINE PHOSPHATASE 211 U/L (38-126); ALT/SGPT 87 U/L (21-72); AST/SGOT 87 U/L (17-59); BILIRUBIN,TOTAL 0.2 mg/dL (0.2-1.3); BLOOD UREA NITROGEN 19 mg/dL (9-20); CALCIUM 7.7 mg/dl (8.6-10.4); CARBON DIOXIDE 26 mmol/L (22-30); CHLORIDE 99 mmol/L (98-107); GFR AFRICAN-AMERICAN > 60; GLUCOSE,RANDOM 85 mg/dL (75-110); POTASSIUM 4.1 mmol/L (3.6-5.2); SODIUM 129 mmol/L (132-148); TOTAL PROTEIN 6.8 g/dL (6.3-8.3)
--- NOTE | 2017-02-16 07:26 | CP.PCM.PN ---
Subjective - Date & Time of Evaluation Date of Evaluation: 02/16/17 Time of Evaluation: 07:26 - Subjective Subjective: PGY1 Note for Dr. Mccartney HPI: Objective - Vital Signs/Intake and Output Vital Signs (last 24 hours): Temp Pulse Resp BP Pulse Ox 99.3 F 68 20 113/49 L 98 02/15/17 23:55 02/16/17 01:00 02/15/17 23:55 02/15/17 23:55 02/15/17 23:55 - Medications Medications: Current Medications Acetaminophen (Tylenol 325mg Tab) 650 mg PO Q6 PRN PRN Reason: Fever >100.4 F Last Admin: 02/15/17 10:17 Dose: 650 mg Amiodarone HCl (Cordarone) 200 mg PO BID [facility] Last Admin: 02/15/17 17:24 Dose: 200 mg Guaifenesin (Mucinex La) 600 mg PO BID [facility] Last Admin: 02/15/17 17:24 Dose: 600 mg Aztreonam 2 gm/ Sodium (Chloride) 100 mls @ 100 mls/hr IVPB Q8H [facility] Last Admin: 02/16/17 05:30 Dose: 100 mls/hr Vancomycin/Sodium Chloride (Vancocin) 1 gm in 200 mls @ 133 mls/hr IVPB Q12H [facility] Stop: 02/19/17 00:01 Last Admin: 02/16/17 00:12 Dose: 133 mls/hr Ibuprofen (Motrin Tab) 600 mg PO Q6H PRN PRN Reason: fever Last Admin: 02/12/17 17:46 Dose: 600 mg Ipratropium [place] (Atrovent Hfa) 2 puff IH RQ6 PRN PRN Reason: Shortness of Breath Lactic Acid (Lac-Hydrin 12% Lotion (225 G)) 225 gm EXT Q1H PRN PRN Reason: Dry skin Last Admin: 02/04/17 18:34 Dose: 1 applic Levothyroxine Sodium (Synthroid) 88 mcg PO DAILY@0630 [facility] Last Admin: 02/16/17 05:30 Dose: 88 mcg Ondansetron HCl (Zofran Inj) 4 mg IVP Q6H PRN PRN Reason: nausea Last Admin: 02/14/17 18:46 Dose: 4 mg Promethazine HCl/Codeine (Phenergan/Codeine Oral Syrup) 5 ml PO Q4 PRN PRN Reason: Cough Last Admin: 02/14/17 18:15 Dose: 5 ml Saccharomyces Boulardii (Florastor) 250 mg PO BID [facility] Last Admin: 02/15/17 17:24 Dose: 250 mg Tramadol HCl (Ultram) 25 mg PO BID PRN PRN Reason: Pain, moderate (4-7) Last Admin: 02/14/17 09:51 Dose: 25 mg - Labs Labs: 02/16/17 06:19 02/16/17 06:19 PT 13.2 SECONDS (9.7-12.2) H 01/20/17 19:37 INR 1.2 01/20/17 19:37 APTT 32 SECONDS (21-34) 01/20/17 19:37 Assessment and Plan - Assessment and Plan (Free Text) Assessment: 1). Luekocytosis with Fever: repeat blood cultures negative, Sputum x [address] negative[address] with ID Dr[address] Calzada who was coverning for Dr. Carias and he recommended Bronchial Washing with cultures. Spoke with [employer] Packer Dr. 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 Barrow has not responded to our calls to see this patient) and he had planned to perform bronchoscopy for morning 01/28/17. However , OR schedule did not free up, therefore Dr. Mckeon to schedule the bronchoscopy/ bronchial washing for Thursday01/30/17 and this was performed: culture showed Marcella albicans and Coag Neg Staph and Sputum AFB is negative. He was started on Diflucan 200 mg IV on 02/03/17 and treated through 02/13/17. Blood and Urine Cultures from 02/07/17 are negative. Sputum Culture 02/07/17 showed Raoultella planticola and Enterobacter cloacae and patient was on Ceftriaxone from 02/03/17 through 02/13/17. S/P Bone Marrow Bx 02/10/17 and Bone Marrow Cultures are currently negative. F/U Bone Marrow Bx Pathology F/U Autoimmune Workup. 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 Diflucan and Ceftriaxone which the patient had been on since 02/03/17 were discontinued by ID on 02/13/17. ID Dr. Calzada then restarted Aztreonam 2 gm IV Q8H and Vancomycin 1 gm IV Q12H on 02/14/17 MRI Thoracic and Cervical Spine 02/12/17 did not reveal any abscesses but did now show abnormal signal on the vertebrae suspicious for hematologic abnormality. Patient had Gallium Scan Part #1 on 02/15/17 and Part #2 is planned for 02/16/17. Citrate of Magnesium 300 mls x 1 dose has been ordered for 7 PM 02/15/17 as recommmended by the Nuclear Medicine Department Consider FNA Lung Bx, Lumbar Puncture, and NEVAEH should the pathology for the Bone Marrow biopsy or the Gallium Scan not reveal anything. Patient was updated as to plan concerning this issue through [place] [employer] with the help of Nurse Aly 2). Hx Elevated Troponin: likely secondary to episode of V Tach. Cardiac Cath performed by Dr. Pryor 01/27/17 showed clean coronaries. Therapeutic Lovenox was discontinued. 3). Hyponatremia: resolved. Monitor 4). Hx Bacteremia: repeat cultures have been negative to date. 5). Hx of TB Prophylaxis: he was on INH upon admission but currently not on anything. Sputum x [address] Chest 01/26/17 shows no change when compared to 01/20/17 (please see full reports). 6). Hx Diffuse Rash: resolved 7). Hx Pancreatic Lesion: F/U CT Abdomen in 6 months 8). 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 Aspirin 9). Hx Constipation: resolved 10). Anemia likely secondary to Chronic Disease: stable 11). Hx Hypothyroidism: levothyroxine 12). Hx Vertigo: resolved and was likely secondary to the Minocycline that patient was on at the time of admission and once discontinued, this issue resolved and has not recurred 13). Hx Diarrhea: resolved 14). Hx Bilateral Lower Leg Edema: duplex are negative, much improved and now mild non-pitting edema involving the ankles 15). Hx Elevated LFTs: resolved
[2017-02-16] MEDS: guaiFENesin 600 mg ER Tab PO SCH ×2 (11:18→18:25)
[2017-02-16] MEDS: Saccharomyces Boulardi 250 mg Cap PO SCH ×2 (11:18→18:25)
--- NOTE | 2017-02-16 16:19 | CP.PCM.PN ---
<Loan Reyna - Last Filed: 02/16/17 18:06> Subjective - Date & Time of Evaluation Date of Evaluation: 02/16/17 Time of Evaluation: 07:00 - Subjective Subjective: Pt seen and examined at bedside. Pt doing well with no new complaints at this time. Pt having some diarrhea that he attributes to the magnesium citrate prep. Pt now afebrile. Blood and urine cultures negative. Sputum culture positive for Hafnia alvei. Pt denies AP/N/V/F/C/CP/SOB. Objective - Vital Signs/Intake and Output Vital Signs (last 24 hours): Temp Pulse Resp BP Pulse Ox 98.6 F 65 20 92/58 L 99 02/16/17 09:32 02/16/17 09:32 02/16/17 09:32 02/16/17 09:32 02/16/17 09:32 - Medications Medications: Current Medications Acetaminophen (Tylenol 325mg Tab) 650 mg PO Q6 PRN PRN Reason: Fever >100.4 F Last Admin: 02/15/17 10:17 Dose: 650 mg Amiodarone HCl (Cordarone) 200 mg PO BID [facility] Last Admin: 02/16/17 11:18 Dose: 200 mg Guaifenesin (Mucinex La) 600 mg PO BID [facility] Last Admin: 02/16/17 11:18 Dose: 600 mg Aztreonam 2 gm/ Sodium (Chloride) 100 mls @ 100 mls/hr IVPB Q8H [facility] Last Admin: 02/16/17 15:01 Dose: 100 mls/hr Vancomycin/Sodium Chloride (Vancocin) 1 gm in 200 mls @ 133 mls/hr IVPB Q12H [facility] Stop: 02/19/17 00:01 Last Admin: 02/16/17 11:18 Dose: 133 mls/hr Ibuprofen (Motrin Tab) 600 mg PO Q6H PRN PRN Reason: fever Last Admin: 02/12/17 17:46 Dose: 600 mg Ipratropium [place] (Atrovent Hfa) 2 puff IH RQ6 PRN PRN Reason: Shortness of Breath Lactic Acid (Lac-Hydrin 12% Lotion (225 G)) 225 gm EXT Q1H PRN PRN Reason: Dry skin Last Admin: 02/04/17 18:34 Dose: 1 applic Levothyroxine Sodium (Synthroid) 88 mcg PO DAILY@0630 [facility] Last Admin: 02/16/17 05:30 Dose: 88 mcg Ondansetron HCl (Zofran Inj) 4 mg IVP Q6H PRN PRN Reason: nausea Last Admin: 02/14/17 18:46 Dose: 4 mg Promethazine HCl/Codeine (Phenergan/Codeine Oral Syrup) 5 ml PO Q4 PRN PRN Reason: Cough Last Admin: 02/14/17 18:15 Dose: 5 ml Saccharomyces Boulardii (Florastor) 250 mg PO BID [facility] Last Admin: 02/16/17 11:18 Dose: 250 mg Tramadol HCl (Ultram) 25 mg PO BID PRN PRN Reason: Pain, moderate (4-7) Last Admin: 02/14/17 09:51 Dose: 25 mg - Labs Labs: 02/16/17 06:19 02/16/17 06:19 PT 13.2 SECONDS (9.7-12.2) H 01/20/17 19:37 INR 1.2 01/20/17 19:37 APTT 32 SECONDS (21-34) 01/20/17 19:37 - Constitutional Appears: Non-toxic, No Acute Distress - Head Exam Head Exam: NORMAL INSPECTION - Eye Exam Eye Exam: EOMI, Normal appearance - ENT Exam ENT Exam: Mucous Membranes Moist - Respiratory Exam Respiratory Exam: Clear to Ausculation Bilateral, NORMAL BREATHING PATTERN. absent: Wheezes - Cardiovascular Exam Cardiovascular Exam: REGULAR RHYTHM, +S1, +S2. absent: Bradycardia, Tachycardia - GI/Abdominal Exam GI & Abdominal Exam: Soft. absent: Distended, Tenderness - Neurological Exam Neurological Exam: Alert, Awake, Oriented x3 - Psychiatric Exam Psychiatric exam: Normal Mood - Skin Skin Exam: Dry, Intact, Warm Assessment and Plan - Assessment and Plan (Free Text) Assessment: Leukocytosis * Bronch - Marcella and Coag negative staph from Bronchial washing * Blood culture - 02/12 - negative x3 days * Repeat blood culture 02/13 - negative x 48h * Urine Culture - 02/12 - negative * Sputum culture - 02/12 - Hafnia alvei, sensitive to Aztreonam * Previous Sputum Culture - Raoultella Planticola, Enterobacter Cloacae * Abx started as per Dr. Calzada, Aztreonam 2g IV q8 and Vancomycin 1g IV q12H started 02/14. Benadryl was given for itchiness secondary to Vancomycin. * MRI Thoracic and Cervical Spine 02/12/17 did not reveal any abscesses but did now show abnormal signal on the vertebrae suspicious for hematologic abnormality * Gallium scan part 1 on 02/15 and part 2 planned for today (02/16) after magnesium citrate prep - F/U results. * Consider FNA lung bx, lumbar puncture, and NEVAEH if pathology for BM bx and gallium scan not impressive. Myalgia * New onset b/l upper extremity pain when he flexes the arms, more on the right than the left assoc with headache * significantly decreased muscle strength bilaterally in the upper extremity * Last head CT/Brain MRI was unremarkable * MRI of the spine - No epidural abscess. Bone marrow signaling abnormal. Consider hematopoietic process Fever * Heme ([place]) - F/U Bone Marrow Bx - no abnormal myeloid maturation or increased blasts, no lymphoproliferative disorder or plasma cell dyscrasia * Anerobic culture negative * Autoimmune Workup - F/U * dsDNA - <1 * Anti-Montelongo - <1 * CHAVA - 1:160, Speckled H, + ANA6 * C-ANCA - negative * P-ANCA - negative * MPO Ab - <1 * PR3 - <1 * Aspergillus - negative * High fever of 100.8 overnight, Abx resumed per Dr. Calzada. History of hypothyroidism * Synthroid 88mcg PO daily * TSH 9.9 on 01/26 * Repeat thyroid panel showed TSH 7.32, free T4 1.51, Total T3 0.584, and T3 3rd Gen 7.32 on 02/15 * Thyroid ultrasound unremarkable Vtach * Stable * Patient Had Rapid called on 01/26 for Vtach - was asx * Cath on 01/27 - Normal coronaries, normal EF by echo * Started on Metoprolol 25 Q6H * Echo - EF 65-70 * Stopped therapeutic Lovenox * 01/30 Another episode of Asx Vtach (13 beats), Cards ([place]) started Cordarone 200mg PO BID Hx of TB PPX * On INH at admission, no longer on anything * Sputum x 3 negative * Repeat CT Chest 01/26/17 shows no change when compared to 01/20/17 Hx of hyponatremia * resolved * monitor Hx pancreatic lesion * F/u CT abdomen in 6 mon Superficial Thrombophlebitis * Right Cephalic Vein Thrombosis as per UE Duplex. Aspirin Hx Elevated LFTs * resolving Loan Reyna DO PGY1 <Tanika Mccartney V - Last Filed: 02/16/17 21:27> Objective - Vital Signs/Intake and Output Vital Signs (last 24 hours): Temp Pulse Resp BP Pulse Ox 98.3 F 64 20 102/61 99 02/16/17 18:26 02/16/17 16:24 02/16/17 16:24 02/16/17 16:24 02/16/17 16:24 - Medications Medications: Current Medications Acetaminophen (Tylenol 325mg Tab) 650 mg PO Q6 PRN PRN Reason: Fever >100.4 F Last Admin: 02/15/17 10:17 Dose: 650 mg Amiodarone HCl (Cordarone) 200 mg PO BID [facility] Last Admin: 02/16/17 18:25 Dose: 200 mg Guaifenesin (Mucinex [place]) 600 mg PO BID [facility] Last Admin: 02/16/17 18:25 Dose: 600 mg Aztreonam 2 gm/ Sodium (Chloride) 100 mls @ 100 mls/hr IVPB Q8H [facility] Last Admin: 02/16/17 15:01 Dose: 100 mls/hr Vancomycin/Sodium Chloride (Vancocin) 1 gm in 200 mls @ 133 mls/hr IVPB Q12H [facility] Stop: 02/19/17 00:01 Last Admin: 02/16/17 11:18 Dose: 133 mls/hr Ibuprofen (Motrin Tab) 600 mg PO Q6H PRN PRN Reason: fever Last Admin: 02/12/17 17:46 Dose: 600 mg Ipratropium [place] (Atrovent Hfa) 2 puff IH RQ6 PRN PRN Reason: Shortness of Breath Lactic Acid (Lac-Hydrin 12% Lotion (225 G)) 225 gm EXT Q1H PRN PRN Reason: Dry skin Last Admin: 02/04/17 18:34 Dose: 1 applic Levothyroxine Sodium (Synthroid) 88 mcg PO DAILY@0630 [facility] Last Admin: 02/16/17 05:30 Dose: 88 mcg Ondansetron HCl (Zofran Inj) 4 mg IVP Q6H PRN PRN Reason: nausea Last Admin: 02/14/17 18:46 Dose: 4 mg Promethazine HCl/Codeine (Phenergan/Codeine Oral Syrup) 5 ml PO Q4 PRN PRN Reason: Cough Last Admin: 02/14/17 18:15 Dose: 5 ml Saccharomyces Boulardii (Florastor) 250 mg PO BID [facility] Last Admin: 02/16/17 18:25 Dose: 250 mg Tramadol HCl (Ultram) 25 mg PO BID PRN PRN Reason: Pain, moderate (4-7) Last Admin: 02/14/17 09:51 Dose: 25 mg - Labs Labs: 02/16/17 06:19 02/16/17 06:19 PT 13.2 SECONDS (9.7-12.2) H 01/20/17 19:37 INR 1.2 01/20/17 19:37 APTT 32 SECONDS (21-34) 01/20/17 19:37 Attending/Attestation - Attestation I have personally seen and examined this patient.: Yes I have fully participated in the care of the patient.: Yes I have reviewed all pertinent clinical information, including history, physical exam and plan: Yes Notes (Text): Patient seen, examined, and case discussed with day-time resident. Patient seen this morning during rounds. Patient denies pain, denies diarrhea, understands we are waiting on the final pathology report from his bone marrow biopsy and he will undergo the second part of the Gallium scan today. Assessment and Plan: 1). Leukocytosis; Fever of Unknown Origin * Pulmonary (Dr. Mckeon) on board * Infectious Disease (Dr. Calzada/Dr. Carias) on board * Heme-onc (Dr. Jennifer Alexandre) on board * s/p bronchoscopy/bronchial washing for Thursday01/30/17 and this was performed: culture showed Marcella albicans and Coag Neg Staph and Sputum AFB is negative--- >completed Diflucan 200 mg IV on 02/03/17 and treated through 02/13/17. * CT scan Chest/Abdomen/Pelvis (02/03/17): largely stable findings within the chest; included septa; thickening; persistent bibasilar consolidation bronchiesctasis; lymphadenopathy including mediastinal and axillary lymph nodes ; cervical lymphadenopathy present * Sputum Culture 02/07/17 showed Raoultella planticola and Enterobacter cloacae and patient was on Ceftriaxone from 02/03/17 through 02/13/17. * S/P Bone Marrow Bx 02/10/17 and Bone Marrow Cultures are currently negative--> . F/U Bone Marrow Bx Pathology-->pending * Sputum Culture 02/12/17 showed Hafnia alvei-->Aztrenoam 2gm IV Q 8 hours ( active since 02/13/17) * Vancomcyin 1gm IV Q 12hours (active since 02/14/17) by ID * MRI Thoracic and Cervical Spine 02/12/17 did not reveal any abscesses but did now show abnormal signal on the vertebrae suspicious for hematologic abnormality -->Awaiting bone marrow pathology report * Patient had Gallium Scan Part #1 on 02/15/17 and Part #2 to undergo today-->f/ u final report. Completed prep as recommended by nuclear medicine * Possible FNA Lung Bx, Lumbar Puncture, and NEVAEH should the pathology for the Bone Marrow biopsy or the Gallium Scan not reveal anything. * White count improving; remains afebrile for 48 hours per EMR 2). Hx Elevated Troponin: likely secondary to episode of V Tach. Cardiac Cath performed by Dr. Pryor 01/27/17 showed clean coronaries. Therapeutic Lovenox was discontinued. Patient is currently on telemetry 3). Hyponatremia: Monitor 4). Hx Bacteremia: repeat cultures have been negative to date. Latest Blood cultures from 02/13/17 show no growth after 48 hours and from 02/12/17 no growth for 4 days 5). Hx of TB Prophylaxis: he was on INH upon admission but currently not on anything given transaminitis. Sputum x [address] Chest 01/26/17 shows no change when compared to 01/20/17 (please see full reports). 6). Hx Diffuse Rash: resolved 7). Hx Pancreatic Lesion: F/U CT Abdomen in 6 months 8). 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 Aspirin 9). Hx Constipation: resolved 10). Anemia likely secondary to Chronic Disease: stable 11). Hx Hypothyroidism: levothyroxine 88mcg PO q AM; f/u thyroid studies; thyroid US unremarkable 12). Hx Vertigo: resolved and was likely secondary to the Minocycline that patient was on at the time of admission and once discontinued, this issue resolved and has not recurred 13). Hx Diarrhea: resolved 14). Hx Bilateral Lower Leg Edema: duplex are negative, much improved and now mild non-pitting edema involving the ankles 15). Hx Elevated LFTs: mildly uptrending; monitor
--- NOTE | 2017-02-16 18:37 | NM ---
PROCEDURE: Whole body gallium scan HISTORY: r/o abdominal cysts COMPARISON: Comparison is made to the previous CT of the chest abdomen pelvis dated 02/03/2017 TECHNIQUE: Whole-body static images were obtained in anterior and posterior position after 48 hours from radiotracer injection. 8.3 millicurie of gallium 67 was injected intravenously. FINDINGS: There are small patchy increased radiotracer uptake at the mid and lower lungs bilaterally more prominent on the right side. Linear increased radiotracer uptake at the left abdomen may represent increased uptake in the left colon and splenic flexure. Otherwise physiological uptake in the abdomen and pelvis noted. IMPRESSION: Mild patchy increase increased radiotracer uptake at the lower lung lobes more on the right. Findings are nonspecific and may represent infectious or inflammatory pneumonitis. Diffuse linear/ tubular shaped increased radiotracer uptake at the left abdomen suspicious for uptake in the left colon. Correlate clinically for colitis.
[2017-02-17] MEDS: Vancomycin 1 gm/NS 200 ml 1 GM/200 ML BAG IVPB SCH ×3 (00:38→23:59)
[2017-02-17] MEDS: Levothyroxine 88 MCG TAB PO SCH (05:57)
[2017-02-17] MEDS: Aztreonam 2 GM in Sodium Chloride 0.9% 100 ML IVPB SCH ×4 (05:57→22:12)
[2017-02-17 06:35] LABS: BASO # 0.1 K/uL (0.0-0.2); BASO % 0.4 % (0.0-2.0); EOS # 1.4 K/uL (0.0-0.7); EOS % 7.9 % (0.0-4.0); HEMATOCRIT 25.6 % (35.0-51.0); LYMPH # 1.8 K/uL (1.0-4.3); LYMPH % 10.3 % (20.0-40.0); MEAN CELL VOLUME 82.9 fL (80.0-94.0); MEAN CORPUSCULAR HGB CONC 32.6 g/dL (33.0-37.0); MONO # 0.3 K/uL (0.0-0.8); MONO % 1.7 % (0.0-10.0); RED CELL DISTRIBUTION WIDTH 18.6 % (11.5-14.5); WHITE BLOOD COUNT 17.6 K/uL (4.8-10.8)
[2017-02-17 06:46] LABS: ALB/GLOB RATIO 0.5 (1.0-2.1); ALKALINE PHOSPHATASE 195 U/L (38-126); ALT/SGPT 76 U/L (21-72); AST/SGOT 59 U/L (17-59); BILIRUBIN,TOTAL 0.1 mg/dL (0.2-1.3); BLOOD UREA NITROGEN 16 mg/dL (9-20); CALCIUM 7.8 mg/dl (8.6-10.4); CARBON DIOXIDE 25 mmol/L (22-30); CHLORIDE 101 mmol/L (98-107); GFR AFRICAN-AMERICAN > 60; GLUCOSE,RANDOM 81 mg/dL (75-110); SODIUM 130 mmol/L (132-148); TOTAL PROTEIN 6.9 g/dL (6.3-8.3)
--- NOTE | 2017-02-17 07:38 | CP.PCM.PN ---
<Loan Reyna - Last Filed: 02/17/17 18:47> Subjective - Date & Time of Evaluation Date of Evaluation: 02/17/17 Time of Evaluation: 07:37 - Subjective Subjective: Pt seen and examined at bedside. Pt doing well with no new complaints at this time. Pt stil having body aches, mainly in the neck and shoulders but also in arms in legs. Patient also complaining of pain in right plantar surface of foot. Patient no longer c/o diarrhea. Patient denies CP/SOB/F/C/AP/N/V/D. Objective - Vital Signs/Intake and Output Vital Signs (last 24 hours): Temp Pulse Resp BP Pulse Ox 98.4 F 68 20 111/56 L 97 02/17/17 04:10 02/17/17 04:10 02/17/17 04:10 02/17/17 04:10 02/17/17 04:10 Intake and Output: 02/17/17 02/17/17 06:59 18:59 Intake Total 960 Balance 960 - Medications Medications: Current Medications Acetaminophen (Tylenol 325mg Tab) 650 mg PO Q6 PRN PRN Reason: Fever >100.4 F Last Admin: 02/15/17 10:17 Dose: 650 mg Amiodarone HCl (Cordarone) 200 mg PO BID [facility] Last Admin: 02/16/17 18:25 Dose: 200 mg Guaifenesin (Mucinex La) 600 mg PO BID [facility] Last Admin: 02/16/17 18:25 Dose: 600 mg Aztreonam 2 gm/ Sodium (Chloride) 100 mls @ 100 mls/hr IVPB Q8H [facility] Last Admin: 02/17/17 05:57 Dose: 100 mls/hr Vancomycin/Sodium Chloride (Vancocin) 1 gm in 200 mls @ 133 mls/hr IVPB Q12H [facility] Stop: 02/19/17 00:01 Last Admin: 02/17/17 00:38 Dose: 133 mls/hr Ibuprofen (Motrin Tab) 600 mg PO Q6H PRN PRN Reason: fever Last Admin: 02/12/17 17:46 Dose: 600 mg Ipratropium Pelion (Atrovent Hfa) 2 puff IH RQ6 PRN PRN Reason: Shortness of Breath Lactic Acid (Lac-Hydrin 12% Lotion (225 G)) 225 gm EXT Q1H PRN PRN Reason: Dry skin Last Admin: 02/04/17 18:34 Dose: 1 applic Levothyroxine Sodium (Synthroid) 88 mcg PO DAILY@0630 [facility] Last Admin: 02/17/17 05:57 Dose: 88 mcg Ondansetron HCl (Zofran Inj) 4 mg IVP Q6H PRN PRN Reason: nausea Last Admin: 02/14/17 18:46 Dose: 4 mg Promethazine HCl/Codeine (Phenergan/Codeine Oral Syrup) 5 ml PO Q4 PRN PRN Reason: Cough Last Admin: 02/14/17 18:15 Dose: 5 ml Saccharomyces Boulardii (Florastor) 250 mg PO BID [facility] Last Admin: 02/16/17 18:25 Dose: 250 mg Tramadol HCl (Ultram) 25 mg PO BID PRN PRN Reason: Pain, moderate (4-7) Last Admin: 02/14/17 09:51 Dose: 25 mg - Labs Labs: 02/17/17 06:25 02/17/17 06:25 PT 13.2 SECONDS (9.7-12.2) H 01/20/17 19:37 INR 1.2 01/20/17 19:37 APTT 32 SECONDS (21-34) 01/20/17 19:37 - Constitutional Appears: Non-toxic - Head Exam Head Exam: ATRAUMATIC - Eye Exam Eye Exam: EOMI - ENT Exam ENT Exam: Mucous Membranes Moist - Neck Exam Neck Exam: Tenderness (to palpation ) - Respiratory Exam Respiratory Exam: NORMAL BREATHING PATTERN. absent: Accessory Muscle Use, Wheezes - Cardiovascular Exam Cardiovascular Exam: REGULAR RHYTHM. absent: Bradycardia, Tachycardia - GI/Abdominal Exam GI & Abdominal Exam: Soft, Normal Bowel Sounds. 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 Calzada, Aztreonam 2g IV q8 and Vancomycin 1g IV q12H started 02/14. Benadryl was given for itchiness secondary to Vancomycin. * MRI Thoracic and Cervical Spine 02/12/17 did not reveal any abscesses but did now show abnormal signal on the vertebrae suspicious for hematologic abnormality * Gallium scan part 1 on 02/15 and part 2 on 02/16 after magnesium citrate prep - Mild patchy increased radiotracer uptake at the lower lung lobes more on the right (Nonspecific and may represent infectious or inflammatory pneumonitis). Diffuse linear/ tubular shaped increased radiotracer uptake at the left abdomen suspicious for uptake in the left colon. Correlate clinically for colitis. * Consider FNA lung bx, lumbar puncture, and NEVAEH if pathology for BM bx and gallium scan not impressive. Myalgia * New onset b/l upper extremity pain when he flexes the arms, more on the right than the left assoc with headache * significantly decreased muscle strength bilaterally in the upper extremity * Last head CT/Brain MRI was unremarkable * MRI of the spine - No epidural abscess. Bone marrow signaling abnormal. Consider hematopoietic process * F/U CPK, ESR, CRP, LDH Fever * Heme ([place]) - * Bone Marrow Bx - no abnormal myeloid maturation or increased blasts, no lymphoproliferative disorder or plasma cell dyscrasia (on first sample); tiny normocellular marrow particle showing trilineage hematopoesis without evidence of acute leukemia, metastatic neoplasm, plplasma cell neoplasm, or lymphoma; however sample was suboptimal containing mostly clot and very little marrow sample (on second sample) * Anerobic culture negative * Autoimmune Workup - F/U * dsDNA - <1 * Anti-Montelongo - <1 * CHAVA - 1:160, Speckled H, + ANA6 * C-ANCA - negative * P-ANCA - negative * MPO Ab - <1 * PR3 - <1 * Aspergillus - negative * Afebrile since Tmax 102 on 02/14 * Abx cont per Dr. Calzada recs. History of hypothyroidism * Synthroid 88mcg PO daily * TSH 9.9 on 01/26 * Repeat thyroid panel showed TSH 7.32, free T4 1.51, Total T3 0.584, and T3 3rd Gen 7.32 on 02/15 * Thyroid ultrasound unremarkable * Consulted Endocrinology (02/17) (Dr. 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 Aspirin Hx Elevated LFTs * resolving <Tanika Mccartney V - Last Filed: 02/24/17 16:36> Objective - Vital Signs/Intake and Output Vital Signs (last 24 hours): Temp Pulse Resp BP Pulse Ox 98.5 F 71 20 108/51 L 99 02/24/17 08:00 02/24/17 08:00 02/24/17 08:00 02/24/17 08:00 02/24/17 08:00 Intake and Output: 02/24/17 02/24/17 06:59 18:59 Intake Total 340 600 Output Total 750 Balance -410 600 - Medications Medications: Current Medications Acetaminophen (Tylenol 325mg Tab) 650 mg PO Q6 PRN PRN Reason: Fever >100.4 F Last Admin: 02/15/17 10:17 Dose: 650 mg Amiodarone HCl (Cordarone) 200 mg PO BID [facility] Last Admin: 02/24/17 10:48 Dose: 200 mg Enoxaparin Sodium (Lovenox) 40 mg SC DAILY [facility] Last Admin: 02/24/17 10:48 Dose: 40 mg Guaifenesin (Mucinex La) 600 mg PO BID [facility] Last Admin: 02/24/17 10:48 Dose: 600 mg Aztreonam 2 gm/ Sodium (Chloride) 100 mls @ 200 mls/hr IVPB Q8H [facility] Last Admin: 02/24/17 12:33 Dose: 200 mls/hr Ibuprofen (Motrin Tab) 600 mg PO TID PRN PRN Reason: fever Last Admin: 02/23/17 22:10 Dose: 600 mg Ipratropium Pelion (Atrovent Hfa) 2 puff IH RQ6 PRN PRN Reason: Shortness of Breath Lactic Acid (Lac-Hydrin 12% Lotion (225 G)) 225 gm EXT Q1H PRN PRN Reason: Dry skin Last Admin: 02/04/17 18:34 Dose: 1 applic Levothyroxine Sodium (Synthroid) 112 mcg PO DAILY@0630 [facility] Last Admin: 02/24/17 06:06 Dose: 112 mcg Ondansetron HCl (Zofran Inj) 4 mg IVP Q6H PRN PRN Reason: nausea Last Admin: 02/14/17 18:46 Dose: 4 mg Promethazine HCl/Codeine (Phenergan/Codeine Oral Syrup) 5 ml PO Q4 PRN PRN Reason: Cough Last Admin: 02/14/17 18:15 Dose: 5 ml Tramadol HCl (Ultram) 25 mg PO BID PRN PRN Reason: Pain, moderate (4-7) Last Admin: 02/19/17 18:11 Dose: 25 mg - Labs Labs: 02/24/17 08:00 02/24/17 08:00 PT 13.2 SECONDS (9.7-12.2) H 01/20/17 19:37 INR 1.2 01/20/17 19:37 APTT 32 SECONDS (21-34) 01/20/17 19:37 Attending/Attestation - Attestation I have personally seen and examined this patient.: Yes I have fully participated in the care of the patient.: Yes I have reviewed all pertinent clinical information, including history, physical exam and plan: Yes Notes (Text): This is late computer entry for 02/17/17. Patient seen, examined, and case discussed with day-time resident. Patient seen this morning during rounds. Patient completed Gallium Scan from yesterday. Patient has non-specific non-myalgias. Endocrinology consult for abnormal thyroid studies in light of thyroid disorder Assessment and Plan: 1). Leukocytosis; Fever of Unknown Origin * Pulmonary (Dr. Mckeon) on board * Infectious Disease (Dr. Calzada/Dr. Carias) on board * Heme-onc (Dr. Jennifer Alexandre) on board * s/p bronchoscopy/bronchial washing for Thursday01/30/17 and this was performed: culture showed Marcella albicans and Coag Neg Staph and Sputum AFB is negative--- >completed Diflucan 200 mg IV on 02/03/17 and treated through 02/13/17. * CT scan Chest/Abdomen/Pelvis (02/03/17): largely stable findings within the chest; included septa; thickening; persistent bibasilar consolidation bronchiesctasis; lymphadenopathy including mediastinal and axillary lymph nodes ; cervical lymphadenopathy present * Sputum Culture 02/07/17 showed Raoultella planticola and Enterobacter cloacae and patient was on Ceftriaxone from 02/03/17 through 02/13/17. * S/P Bone Marrow Bx 02/10/17 and Bone Marrow Cultures are currently negative--> . F/U Bone Marrow Bx Pathology * Bone Marrow Bx-no abnormal myeloid maturation or increased blasts, no lymphoproliferative disorder or plasma cell dyscrasia (on first sampl): tiny normocellular marrow particle showing trilinerage hematopoesis without evidence of acute leukemia, metastatic neoplasm, plasma cell neoplasm, or lymphoma; however suboptimal containing mostly clot and very little marrow sample * f/u with heme-onc * Sputum Culture 02/12/17 showed Hafnia alvei-->Aztrenoam 2gm IV Q 8 hours ( active since 02/13/17) * Vancomcyin 1gm IV Q 12hours (active since 02/14/17) by ID * MRI Thoracic and Cervical Spine 02/12/17 did not reveal any abscesses but did now show abnormal signal on the vertebrae suspicious for hematologic abnormality -->Awaiting bone marrow pathology report * Patient had Gallium Scan Part #1 on 02/15/17 and Part #2 02/16/17 * Mild patchy increased radiotracer uptake in the lower lobes more on the right (nonspecific and may represent infectious or inflammatory pneumonitis. Diffuse liner/tubular shaped increase radiotracer uptake at the left abdomen suspicious for uptake in the left colon. Correlate clinically for colitis * Possible FNA Lung Bx, Lumbar Puncture, and NEVAEH should the pathology for the Bone Marrow biopsy or the Gallium Scan not reveal anything. * White count improving; remains afebrile for 48 hours per EMR 2). Hx Elevated Troponin: likely secondary to episode of V Tach. Cardiac Cath performed by Dr. Pryor 01/27/17 showed clean coronaries. Therapeutic Lovenox was discontinued. Patient is currently on telemetry. Amiodarone 200mg PO bid 3). Hyponatremia: Monitor 4). Hx Bacteremia: repeat cultures have been negative to date. Latest Blood cultures from 02/13/17 show no growth after 72 hours and from no growth for 5 days 5). Hx of TB Prophylaxis: he was on INH upon admission but currently not on anything given transaminitis. Sputum x [address] Chest 01/26/17 shows no change when compared to 01/20/17 (please see full reports). 6). Hx Diffuse Rash: resolved 7). Hx Pancreatic Lesion: F/U CT Abdomen in 6 months; GI seen during hospitalization. 8). 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 Aspirin 9). Hx Constipation: resolved 10). Anemia likely secondary to Chronic Disease: stable 11). Hx Hypothyroidism: levothyroxine 88mcg PO q AM; f/u thyroid studies; thyroid US unremarkable 12). Hx Vertigo: resolved and was likely secondary to the Minocycline that patient was on at the time of admission and once discontinued, this issue resolved and has not recurred 13). Hx Diarrhea: resolved 14). Hx Bilateral Lower Leg Edema: duplex are negative, much improved and now mild non-pitting edema involving the ankles 15). Hx Elevated LFTs: monitor; hepatitis negative 16). History of hypothyroidism. c/w Synthroid 88mcg PO AM, TSH: 9.9 on 01/26/17, repeat thyroid panel: TSH: 7.32, Free t4: 1.51, Total T3: 0.584, T3 3rd generation 7.32, consult: endocrinology
[2017-02-17] MEDS: guaiFENesin 600 mg ER Tab PO SCH ×2 (10:20→18:46)
[2017-02-17] MEDS: Saccharomyces Boulardi 250 mg Cap PO SCH ×2 (10:21→18:46)
[2017-02-18] MEDS: Levothyroxine 112 MCG TAB PO SCH (05:32)
[2017-02-18] MEDS: Aztreonam 2 GM in Sodium Chloride 0.9% 100 ML IVPB SCH ×2 (05:32→14:16)
--- NOTE | 2017-02-18 07:30 | CP.PCM.PN ---
<Loan Reyna - Last Filed: 02/18/17 13:52> Subjective - Date & Time of Evaluation Date of Evaluation: 02/18/17 Time of Evaluation: 07:30 - Subjective Subjective: Pt seen and examined at bedside. Pt complaining of abdominal "inflammation". Pt stil having body aches, mainly in the neck and shoulders but also in arms in legs. Patient also complaining of pain in right plantar surface of foot. Patient says his pain has improved since yesterday. Pt complaining of mild chest pain. Patient no longer c/o diarrhea. Patient denies SOB/F/C/AP/N/V/D. Objective - Vital Signs/Intake and Output Vital Signs (last 24 hours): Temp Pulse Resp BP Pulse Ox 97.6 F 62 20 120/66 100 02/18/17 04:41 02/18/17 04:41 02/18/17 04:41 02/18/17 04:41 02/18/17 04:41 - Medications Medications: Current Medications Acetaminophen (Tylenol 325mg Tab) 650 mg PO Q6 PRN PRN Reason: Fever >100.4 F Last Admin: 02/15/17 10:17 Dose: 650 mg Amiodarone HCl (Cordarone) 200 mg PO BID [facility] Last Admin: 02/17/17 18:46 Dose: 200 mg Guaifenesin (Mucinex La) 600 mg PO BID [facility] Last Admin: 02/17/17 18:46 Dose: 600 mg Aztreonam 2 gm/ Sodium (Chloride) 100 mls @ 100 mls/hr IVPB Q8H [facility] Last Admin: 02/18/17 05:32 Dose: Not Given Vancomycin/Sodium Chloride (Vancocin) 1 gm in 200 mls @ 133 mls/hr IVPB Q12H [facility] Stop: 02/19/17 00:01 Last Admin: 02/17/17 23:59 Dose: Not Given Ibuprofen (Motrin Tab) 600 mg PO Q6H PRN PRN Reason: fever Last Admin: 02/17/17 23:57 Dose: 600 mg Ipratropium [place] (Atrovent Hfa) 2 puff IH RQ6 PRN PRN Reason: Shortness of Breath Lactic Acid (Lac-Hydrin 12% Lotion (225 G)) 225 gm EXT Q1H PRN PRN Reason: Dry skin Last Admin: 02/04/17 18:34 Dose: 1 applic Levothyroxine Sodium (Synthroid) 112 mcg PO DAILY@0630 [facility] Last Admin: 02/18/17 05:32 Dose: 112 mcg Ondansetron HCl (Zofran Inj) 4 mg IVP Q6H PRN PRN Reason: nausea Last Admin: 02/14/17 18:46 Dose: 4 mg Promethazine HCl/Codeine (Phenergan/Codeine Oral Syrup) 5 ml PO Q4 PRN PRN Reason: Cough Last Admin: 02/14/17 18:15 Dose: 5 ml Saccharomyces Boulardii (Florastor) 250 mg PO BID [facility] Last Admin: 02/17/17 18:46 Dose: 250 mg Tramadol HCl (Ultram) 25 mg PO BID PRN PRN Reason: Pain, moderate (4-7) Last Admin: 02/14/17 09:51 Dose: 25 mg - Labs Labs: 02/17/17 06:25 02/17/17 06:25 PT 13.2 SECONDS (9.7-12.2) H 01/20/17 19:37 INR 1.2 01/20/17 19:37 APTT 32 SECONDS (21-34) 01/20/17 19:37 - Constitutional Appears: Non-toxic - Head Exam Head Exam: NORMAL INSPECTION - Eye Exam Eye Exam: EOMI - ENT Exam ENT Exam: Mucous Membranes Moist - Respiratory Exam Respiratory Exam: Clear to Ausculation Bilateral, NORMAL BREATHING PATTERN. absent: Wheezes, Respiratory Distress - Cardiovascular Exam Cardiovascular Exam: REGULAR RHYTHM, +S1, +S2. absent: Bradycardia, Tachycardia - GI/Abdominal Exam GI & Abdominal Exam: Soft, Tenderness (to palpation ), Normal Bowel Sounds. absent: Distended - Extremities Exam Extremities Exam: Normal Inspection - Psychiatric Exam Psychiatric exam: Normal Affect, Normal Mood - Skin Skin Exam: Dry, Intact, Normal Color Assessment and Plan - Assessment and Plan (Free Text) Assessment: Leukocytosis * Bronch - Marcella and Coag negative staph from Bronchial washing * Blood culture - 02/12 - negative x3 days * Repeat blood culture 02/13 - negative x 3 days * Urine Culture - 02/12 - negative * Sputum culture - 02/12 - Hafnia alvei, sensitive to Aztreonam * Previous Sputum Culture - Raoultella Planticola, Enterobacter Cloacae * Abx started as per Dr. Calzada, Aztreonam 2g IV q8 and Vancomycin 1g IV q12H started 02/14. Benadryl was given for itchiness secondary to Vancomycin. * MRI Thoracic and Cervical Spine 02/12/17 did not reveal any abscesses but did now show abnormal signal on the vertebrae suspicious for hematologic abnormality * Gallium scan part 1 on 02/15 and part 2 on 02/16 after magnesium citrate prep - Mild patchy increased radiotracer uptake at the lower lung lobes more on the right (Nonspecific and may represent infectious or inflammatory pneumonitis). Diffuse linear/ tubular shaped increased radiotracer uptake at the left abdomen suspicious for uptake in the left colon. Correlate clinically for colitis. * Abdominal pain (02/18) - F/U Repeat CT abd/pelvis, lipase, amylase, stool C. diff * Consider FNA lung bx, lumbar puncture, and NEVAEH if pathology for BM bx and gallium scan not impressive. Myalgia * New onset b/l upper extremity pain when he flexes the arms, more on the right than the left assoc with headache * significantly decreased muscle strength bilaterally in the upper extremity * Last head CT/Brain MRI was unremarkable * MRI of the spine - No epidural abscess. Bone marrow signaling abnormal. Consider hematopoietic process * Total CK - 50 * ESR - 134 * CRP - >15 * LDH - 719 Fever * Heme ([place]) - * Bone Marrow Bx - no abnormal myeloid maturation or increased blasts, no lymphoproliferative disorder or plasma cell dyscrasia (on first sample); tiny normocellular marrow particle showing trilineage hematopoesis without evidence of acute leukemia, metastatic neoplasm, plplasma cell neoplasm, or lymphoma; however sample was suboptimal containing mostly clot and very little marrow sample (on second sample) * Anerobic culture negative * Autoimmune Workup - F/U * dsDNA - <1 * Anti-Montelongo - <1 * CHAVA - 1:160, Speckled H, + ANA6 * C-ANCA - negative * P-ANCA - negative * MPO Ab - <1 * PR3 - <1 * Aspergillus - negative * Afebrile since Tmax 102 on 02/14 * Abx cont per Dr. Calzada recs. History of hypothyroidism * Synthroid 88mcg PO daily * TSH 9.9 on 01/26 * Repeat thyroid panel showed TSH 7.32, free T4 1.51, Total T3 0.584, and T3 3rd Gen 7.32 on 02/15 * Thyroid ultrasound unremarkable * Consulted Endocrinology (02/17) (Dr. Mccormick) - recs appreciated Vtach * Stable * Patient Had Rapid called on 01/26 for Vtach - was asx * Cath on 01/27 - Normal coronaries, normal EF by echo * Started on Metoprolol 25 Q6H * Echo - EF 65-70 * Stopped therapeutic Lovenox * 01/30 Another episode of Asx Vtach (13 beats), Cards (Voudouris) started Cordarone 200mg PO BID Hx of TB PPX * On INH at admission, no longer on anything * Sputum x 3 negative * Repeat CT Chest 01/26/17 shows no change when compared to 01/20/17 Hx of hyponatremia * resolved * monitor Hx pancreatic lesion * F/u CT abdomen in 6 mon Superficial Thrombophlebitis * Right Cephalic Vein Thrombosis as per UE Duplex. Aspirin Hx Elevated LFTs * resolving <Tanika Mccartney V - Last Filed: 02/24/17 16:40> Objective - Vital Signs/Intake and Output Vital Signs (last 24 hours): Temp Pulse Resp BP Pulse Ox 98.5 F 71 20 108/51 L 99 02/24/17 08:00 02/24/17 08:00 02/24/17 08:00 02/24/17 08:00 02/24/17 08:00 Intake and Output: 02/24/17 02/24/17 06:59 18:59 Intake Total 340 600 Output Total 750 Balance -410 600 - Medications Medications: Current Medications Acetaminophen (Tylenol 325mg Tab) 650 mg PO Q6 PRN PRN Reason: Fever >100.4 F Last Admin: 02/15/17 10:17 Dose: 650 mg Amiodarone HCl (Cordarone) 200 mg PO BID [facility] Last Admin: 02/24/17 10:48 Dose: 200 mg Enoxaparin Sodium (Lovenox) 40 mg SC DAILY [facility] Last Admin: 02/24/17 10:48 Dose: 40 mg Guaifenesin (Mucinex La) 600 mg PO BID [facility] Last Admin: 02/24/17 10:48 Dose: 600 mg Aztreonam 2 gm/ Sodium (Chloride) 100 mls @ 200 mls/hr IVPB Q8H [facility] Last Admin: 02/24/17 12:33 Dose: 200 mls/hr Ibuprofen (Motrin Tab) 600 mg PO TID PRN PRN Reason: fever Last Admin: 02/23/17 22:10 Dose: 600 mg Ipratropium [place] (Atrovent Hfa) 2 puff IH RQ6 PRN PRN Reason: Shortness of Breath Lactic Acid (Lac-Hydrin 12% Lotion (225 G)) 225 gm EXT Q1H PRN PRN Reason: Dry skin Last Admin: 02/04/17 18:34 Dose: 1 applic Levothyroxine Sodium (Synthroid) 112 mcg PO DAILY@0630 [facility] Last Admin: 02/24/17 06:06 Dose: 112 mcg Ondansetron HCl (Zofran Inj) 4 mg IVP Q6H PRN PRN Reason: nausea Last Admin: 02/14/17 18:46 Dose: 4 mg Promethazine HCl/Codeine (Phenergan/Codeine Oral Syrup) 5 ml PO Q4 PRN PRN Reason: Cough Last Admin: 02/14/17 18:15 Dose: 5 ml Tramadol HCl (Ultram) 25 mg PO BID PRN PRN Reason: Pain, moderate (4-7) Last Admin: 02/19/17 18:11 Dose: 25 mg - Labs Labs: 02/24/17 08:00 02/24/17 08:00 PT 13.2 SECONDS (9.7-12.2) H 01/20/17 19:37 INR 1.2 01/20/17 19:37 APTT 32 SECONDS (21-34) 01/20/17 19:37 Attending/Attestation - Attestation I have personally seen and examined this patient.: Yes I have fully participated in the care of the patient.: Yes I have reviewed all pertinent clinical information, including history, physical exam and plan: Yes Notes (Text): This is late computer entry for 02/18/17. Patient seen, examined, and case discussed with day-time resident. Patient seen this morning during rounds. Patient reporting abdominal pain at bedside. Patient ordered for repeat CT Abdomen and Pelvis at bedside. ESR, CRP remain elevated. patient does not appear to have rhabdomyolosis. Patient is afebrile since 02/14/17. Assessment and Plan: 1). Leukocytosis; Fever of Unknown Origin * Pulmonary (Dr. Mckeon) on board * Infectious Disease (Dr. Calzada/Dr. Carias) on board * Heme-onc (Dr. Jennifer Alexandre) on board * s/p bronchoscopy/bronchial washing for Thursday01/30/17 and this was performed: culture showed Marcella albicans and Coag Neg Staph and Sputum AFB is negative--- >completed Diflucan 200 mg IV on 02/03/17 and treated through 02/13/17. * CT scan Chest/Abdomen/Pelvis (02/03/17): largely stable findings within the chest; included septa; thickening; persistent bibasilar consolidation bronchiesctasis; lymphadenopathy including mediastinal and axillary lymph nodes ; cervical lymphadenopathy present * Sputum Culture 02/07/17 showed Raoultella planticola and Enterobacter cloacae and patient was on Ceftriaxone from 02/03/17 through 02/13/17. * S/P Bone Marrow Bx 02/10/17 and Bone Marrow Cultures are currently negative--> . F/U Bone Marrow Bx Pathology * Bone Marrow Bx-no abnormal myeloid maturation or increased blasts, no lymphoproliferative disorder or plasma cell dyscrasia (on first sampl): tiny normocellular marrow particle showing trilinerage hematopoesis without evidence of acute leukemia, metastatic neoplasm, plasma cell neoplasm, or lymphoma; however suboptimal containing mostly clot and very little marrow sample * f/u with heme-onc * Sputum Culture 02/12/17 showed Hafnia alvei-->Aztrenoam 2gm IV Q 8 hours ( active since 02/13/17) * Vancomcyin 1gm IV Q 12hours (active since 02/14/17) by ID * MRI Thoracic and Cervical Spine 02/12/17 did not reveal any abscesses but did now show abnormal signal on the vertebrae suspicious for hematologic abnormality * Patient had Gallium Scan Part #1 on 02/15/17 and Part #2 02/16/17 * Mild patchy increased radiotracer uptake in the lower lobes more on the right (nonspecific and may represent infectious or inflammatory pneumonitis. Diffuse liner/tubular shaped increase radiotracer uptake at the left abdomen suspicious for uptake in the left colon. Correlate clinically for colitis * Possible FNA Lung Bx, Lumbar Puncture, and NEVAEH should the pathology for the Bone Marrow biopsy or the Gallium Scan not reveal anything. * White count improving; remains afebrile for 48 hours per EMR 2). Hx Elevated Troponin: likely secondary to episode of V Tach. Cardiac Cath performed by Dr. Pryor 01/27/17 showed clean coronaries. Therapeutic Lovenox was discontinued. Patient is currently on telemetry. Amiodarone 200mg PO bid 3). Hyponatremia: Monitor 4). Hx Bacteremia: repeat cultures have been negative to date. Latest Blood cultures from 02/13/17 show no growth after 72 hours and from no growth for 5 days 5). Hx of TB Prophylaxis: he was on INH upon admission but currently not on anything given transaminitis. Sputum x [address] Chest 01/26/17 shows no change when compared to 01/20/17 (please see full reports). 6). Hx Diffuse Rash: resolved 7). Hx Pancreatic Lesion: F/U CT Abdomen in 6 months; GI seen during hospitalization. 8). 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 Aspirin 9). Hx Constipation: resolved 10). Anemia likely secondary to Chronic Disease: stable 11). Hx Hypothyroidism: levothyroxine 88mcg PO q AM; f/u thyroid studies; thyroid US unremarkable 12). Hx Vertigo: resolved and was likely secondary to the Minocycline that patient was on at the time of admission and once discontinued, this issue resolved and has not recurred 13). Hx Diarrhea: resolved 14). Hx Bilateral Lower Leg Edema: duplex are negative, much improved and now mild non-pitting edema involving the ankles 15). Hx Elevated LFTs: monitor; hepatitis negative 16). History of hypothyroidism. c/w Synthroid 88mcg PO AM, TSH: 9.9 on 01/26/17, repeat thyroid panel: TSH: 7.32, Free t4: 1.51, Total T3: 0.584, T3 3rd generation 7.32, consult: endocrinology
[2017-02-18 08:05] LABS: BASO # 0.1 K/uL (0.0-0.2); BASO % 0.3 % (0.0-2.0); EOS # 1.2 K/uL (0.0-0.7); EOS % 5.1 % (0.0-4.0); HEMATOCRIT 28.9 % (35.0-51.0); LYMPH % 8.9 % (20.0-40.0); MEAN CELL VOLUME 83.9 fL (80.0-94.0); MEAN CORPUSCULAR HEMOGLOBIN 27.2 pg (27.0-31.0); MEAN CORPUSCULAR HGB CONC 32.4 g/dL (33.0-37.0); MONO # 0.4 K/uL (0.0-0.8); MONO % 1.8 % (0.0-10.0); PLATELET COUNT 519 K/uL (130-400); RED CELL DISTRIBUTION WIDTH 18.8 % (11.5-14.5); WHITE BLOOD COUNT 22.5 K/uL (4.8-10.8)
[2017-02-18 08:26] LABS: CHLORIDE 101 mmol/L (98-107); POTASSIUM 3.9 mmol/L (3.6-5.2); SODIUM 133 mmol/L (132-148)
[2017-02-18 08:28] LABS: ALKALINE PHOSPHATASE 190 U/L (38-126); AST/SGOT 52 U/L (17-59); BILIRUBIN,TOTAL 0.2 mg/dL (0.2-1.3); CARBON DIOXIDE 24 mmol/L (22-30); GFR AFRICAN-AMERICAN > 60; TOTAL PROTEIN 7.5 g/dL (6.3-8.3)
[2017-02-18 08:29] LABS: ALB/GLOB RATIO 0.4 (1.0-2.1); ALT/SGPT 71 U/L (21-72); BLOOD UREA NITROGEN 13 mg/dL (9-20); CALCIUM 7.9 mg/dl (8.6-10.4); GLUCOSE,RANDOM 84 mg/dL (75-110); MAGNESIUM 1.5 mg/dL (1.6-2.3); PHOSPHOROUS 4.3 mg/dL (2.5-4.5)
--- NOTE | 2017-02-18 08:45 | CON ---
DATE: HISTORY OF PRESENT ILLNESS: This is a 51-year-old male admitted with fevers of unknown origin and aggressive weight loss with concomitant abnormal chest x-ray findings with possible latent pulmonary tuberculosis and is now being referred for endocrine evaluation of known history of hypothyroidism with apparent tenderness in the anterior neck area at this time. PAST MEDICAL HISTORY: As mentioned above, history of hypothyroidism, currently using levothyroxine at 88 mcg once daily, history of hypertensive cardiovascular disease and dyslipidemia. FAMILY HISTORY: Positive for diabetes and hypertension. No known thyroid endocrinopathy. 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 No known substance use. REVIEW OF SYSTEMS: As mentioned above with history of generalized body weakness, history of fatigability and tiredness and suboptimal energy level, also admits to dizziness and lightheadedness worse on the day of admission. Also admits to pleuritic chest pain especially in the right chest wall area with the patient with the bouts of short of breath especially on exertion. Also admits to productive cough with persistent fever over the left 2 to 3 weeks prior to admission. His oral intake is variable and suboptimal with nausea, dyspepsia and vague upper abdominal pain. PHYSICAL EXAMINATION GENERAL: This is an average built female, in no apparent distress. VITAL SIGNS: Blood pressure of 140/80, pulse of 76 beats per minute and regular, temperature 100, respirations 20, height 5 and 4 inches and weight is 140 pounds. HEENT: Head is normocephalic. Eyes anicteric with pink conjunctivae. Funduscopy not possible at this time. Ears, nose, and throat are, otherwise, normal. NECK: Supple. Thyroid gland is normal size. No carotid bruits. No cervical adenopathy. CARDIOPULMONARY: Adynamic precordium. S1 and S2 is rapid and regular. LUNGS: Clear to auscultation. ABDOMEN: Flat and soft with positive bowel sounds. EXTREMITIES: No peripheral edema. Pulses are +2 bilaterally. LABORATORY DATA: The chemistry shows the BUN of 16, sodium 130, potassium 4.0, chloride 101, CO2 of 25, glucose 81, and creatinine 0.5. His LDH is 719. Alkaline phosphatase is 195. His C-reactive protein is over 15. Albumin is 2.3. Free T4 is 1.51 with T3 of 0.58. Thyroglobulin 0.9 and TSH of 7.32. ASSESSMENT: This is a 51-year-old male with possible latent tuberculosis, presenting here with fever, weight loss, generalized body weakness and associated pulmonary findings as noted by chest x-ray and is also being evaluated to be clinically euthyroid with early hypothyroidism noted by chemically. With the significant history of prior thyroid dysfunction this may just be so called subclinical hypothyroidism requiring dose adjustments accordingly. He also has a nodular goiter noted radiologically by ultrasound with right lobe measuring 5.1 and the left lobe measuring 4.6 cm. No overt thyroid nodules are noted. There is also evidence of euvolemic hypernatremia most likely secondary to syndrome of inappropriate antidiuretic hormone with underlying pulmonary infiltrates as noted. PLAN OF MANAGEMENT: As discussed with the staff we will modify his levothyroxine and titrate higher to a dose of 112 mcg once daily in the morning as ordered. A thyroid peroxidase antibody will be obtained to confirm the presence of underlying thyroid autoimmunity. There is no evidence of tenderness in the thyroid gland area which would exclude the possibility of subacute thyroiditis. So at this time, we will obtain serial chemistries and supplement accordingly as needed. We will also obtain serial thyroid studies and titrate dose regimen accordingly. Gaby Mccormick MD
[2017-02-18 09:11] LABS: EOSINOPHIL 3 % (0-4); NEUTROPHIL 87 % (50-75); REACTIVE LYMPHOCYTES 1 % (0-0); TOTAL CELLS COUNTED 100
[2017-02-18] MEDS: Saccharomyces Boulardi 250 mg Cap PO SCH ×2 (10:50→18:08)
[2017-02-18] MEDS: guaiFENesin 600 mg ER Tab PO SCH ×2 (10:51→18:08)
[2017-02-18] MEDS: Vancomycin 1 gm/NS 200 ml 1 GM/200 ML BAG IVPB SCH (11:10)
[2017-02-18] MEDS ORDERED: Iohexol 240 (50 ml) PO ONE (12:00)
[2017-02-18 13:07] LABS: AMYLASE 103 U/L (30-110)
--- NOTE | 2017-02-18 17:56 | CP.PCM.PN ---
Subjective - Date & Time of Evaluation Date of Evaluation: 02/18/17 Time of Evaluation: 05:00 - Subjective Subjective: dictated Objective - Vital Signs/Intake and Output Vital Signs (last 24 hours): Temp Pulse Resp BP Pulse Ox 99.7 F H 77 20 122/68 99 02/18/17 15:11 02/18/17 15:11 02/18/17 15:11 02/18/17 15:11 02/18/17 15:11 Intake and Output: 02/18/17 02/18/17 06:59 18:59 Intake Total 300 Balance 300 - Medications Medications: Current Medications Acetaminophen (Tylenol 325mg Tab) 650 mg PO Q6 PRN PRN Reason: Fever >100.4 F Last Admin: 02/15/17 10:17 Dose: 650 mg Amiodarone HCl (Cordarone) 200 mg PO BID [facility] Last Admin: 02/18/17 10:51 Dose: 200 mg Guaifenesin (Mucinex La) 600 mg PO BID [facility] Last Admin: 02/18/17 10:51 Dose: 600 mg Aztreonam 2 gm/ Sodium (Chloride) 100 mls @ 100 mls/hr IVPB Q8H [facility] Last Admin: 02/18/17 14:16 Dose: 100 mls/hr Vancomycin/Sodium Chloride (Vancocin) 1 gm in 200 mls @ 133 mls/hr IVPB Q12H [facility] Stop: 02/19/17 00:01 Last Admin: 02/18/17 11:10 Dose: 133 mls/hr Ibuprofen (Motrin Tab) 600 mg PO Q6H PRN PRN Reason: fever Last Admin: 02/17/17 23:57 Dose: 600 mg Ipratropium [place] (Atrovent Hfa) 2 puff IH RQ6 PRN PRN Reason: Shortness of Breath Lactic Acid (Lac-Hydrin 12% Lotion (225 G)) 225 gm EXT Q1H PRN PRN Reason: Dry skin Last Admin: 02/04/17 18:34 Dose: 1 applic Levothyroxine Sodium (Synthroid) 112 mcg PO DAILY@0630 [facility] Last Admin: 02/18/17 05:32 Dose: 112 mcg Ondansetron HCl (Zofran Inj) 4 mg IVP Q6H PRN PRN Reason: nausea Last Admin: 02/14/17 18:46 Dose: 4 mg Promethazine HCl/Codeine (Phenergan/Codeine Oral Syrup) 5 ml PO Q4 PRN PRN Reason: Cough Last Admin: 02/14/17 18:15 Dose: 5 ml Saccharomyces Boulardii (Florastor) 250 mg PO BID [facility] Last Admin: 02/18/17 10:50 Dose: 250 mg Tramadol HCl (Ultram) 25 mg PO BID PRN PRN Reason: Pain, moderate (4-7) Last Admin: 02/14/17 09:51 Dose: 25 mg - Labs Labs: 02/18/17 07:52 02/18/17 07:52 PT 13.2 SECONDS (9.7-12.2) H 01/20/17 19:37 INR 1.2 01/20/17 19:37 APTT 32 SECONDS (21-34) 01/20/17 19:37 Assessment and Plan (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
--- NOTE | 2017-02-18 19:57 | CT ---
EXAM: CT Abdomen and Pelvis Without Intravenous Contrast EXAM DATE/TIME: Exam ordered 02/18/2017 11:28 AM CLINICAL HISTORY: 51 years old, male; Pain and condition or disease; Intestinal condition; Gastronenteritis or colitis; Abdominal pain; Generalized; Additional info: Abdominal pain, R/O colitis TECHNIQUE: Axial computed tomography images of the abdomen and pelvis without intravenous contrast. All CT scans at this facility use one or more dose reduction techniques, viz.: automated exposure control; ma/kV adjustment per patient size (including targeted exams where dose is matched to indication; i.e. head); or iterative reconstruction technique. Coronal and sagittal reformatted images were created and reviewed. COMPARISON: CT - CHEST,ABD,PEL W/IV PO CONTRAST 02/03/2017 8:57:54 PM FINDINGS: Lower thorax: There is a consolidation noted at both lung bases. There is a bleb noted in the posterior basal segment of the right lower lobe is unchanged. Pleural fluid dissects into the major fissure on the right. Small pleural effusions are noted bilaterally. There is a small hiatal hernia. ABDOMEN: Liver: The liver measures 16 cm in craniocaudal span Gallbladder and bile ducts: Unremarkable. No calcified stones. No ductal dilation. Pancreas: Unremarkable. No ductal dilation. Spleen: Unremarkable. No splenomegaly. Adrenals: Unremarkable. No mass. Kidneys and ureters: There is a 1.9 cm low density mass noted in the lower pole of the right kidney with a density measurement of 18 H. A rim like calcification is noted within the wall. No hydronephrosis. Stomach and bowel: Unremarkable. No obstruction. No mucosal thickening. Appendix: No findings to suggest acute appendicitis. PELVIS: Bladder: Unremarkable. No stones. Reproductive: The prostate measures 3.8 x 4.1 x 4.1 cm. Calcifications are noted within the prostate. ABDOMEN and PELVIS: Intraperitoneal space: Unremarkable. No free air. No significant fluid collection. Bones/joints: No acute fracture. No dislocation. Soft tissues: There is small inguinal hernias containing fat. Vasculature: Unremarkable. No abdominal aortic aneurysm. Lymph nodes: Unremarkable. No enlarged lymph nodes. IMPRESSION: 1. Bibasal or consolidation. Small bulla/bleb in the right lower lobe. No change. 2. Right renal cyst with a calcification noted in the wall of the cyst. No stones are seen in the left kidney. 3. Small hiatal hernia. 4. Very small pleural effusions bilaterally 5. Small inguinal hernias containing fat bilaterally.
[2017-02-18] MEDS: Cefepime IV 2 gm in Dextrose 2 GM/100 ML BAG IVPB SCH (20:00)
--- NOTE | 2017-02-18 22:29 | CP.PCM.PN ---
Subjective - Date & Time of Evaluation Date of Evaluation: 02/18/17 Time of Evaluation: 19:00 - Subjective Subjective: Still spiking fevers Bone marrow results noted; no evidence of malignancy by bone marrow flow and core biopsy core biopsy and clot noted to be suboptimal by outside pathology; unclear why, near 2cm core biopsy and large clot sent and noted in pathology report Objective - Vital Signs/Intake and Output Vital Signs (last 24 hours): Temp Pulse Resp BP Pulse Ox 99.7 F H 77 20 122/68 99 02/18/17 15:11 02/18/17 15:11 02/18/17 15:11 02/18/17 15:11 02/18/17 15:11 Intake and Output: 02/18/17 02/19/17 18:59 06:59 Intake Total 300 Balance 300 - Medications Medications: Current Medications Acetaminophen (Tylenol 325mg Tab) 650 mg PO Q6 PRN PRN Reason: Fever >100.4 F Last Admin: 02/15/17 10:17 Dose: 650 mg Amiodarone HCl (Cordarone) 200 mg PO BID [facility] Last Admin: 02/18/17 18:08 Dose: 200 mg Guaifenesin (Mucinex La) 600 mg PO BID [facility] Last Admin: 02/18/17 18:08 Dose: 600 mg Vancomycin/Sodium Chloride (Vancocin) 1 gm in 200 mls @ 133 mls/hr IVPB Q12H [facility] Stop: 02/19/17 00:01 Last Admin: 02/18/17 11:10 Dose: 133 mls/hr Cefepime HCl (Maxipime Iv 2 Gm Premix) 2 gm in 100 mls @ 100 mls/hr IVPB Q12H [facility] Last Admin: 02/18/17 20:00 Dose: 100 mls/hr Ibuprofen (Motrin Tab) 600 mg PO Q6H PRN PRN Reason: fever Last Admin: 02/17/17 23:57 Dose: 600 mg Ipratropium [place] (Atrovent Hfa) 2 puff IH RQ6 PRN PRN Reason: Shortness of Breath Lactic Acid (Lac-Hydrin 12% Lotion (225 G)) 225 gm EXT Q1H PRN PRN Reason: Dry skin Last Admin: 02/04/17 18:34 Dose: 1 applic Levothyroxine Sodium (Synthroid) 112 mcg PO DAILY@0630 [facility] Last Admin: 02/18/17 05:32 Dose: 112 mcg Ondansetron HCl (Zofran Inj) 4 mg IVP Q6H PRN PRN Reason: nausea Last Admin: 02/14/17 18:46 Dose: 4 mg Promethazine HCl/Codeine (Phenergan/Codeine Oral Syrup) 5 ml PO Q4 PRN PRN Reason: Cough Last Admin: 02/14/17 18:15 Dose: 5 ml Saccharomyces Boulardii (Florastor) 250 mg PO BID [facility] Last Admin: 02/18/17 18:08 Dose: 250 mg Tramadol HCl (Ultram) 25 mg PO BID PRN PRN Reason: Pain, moderate (4-7) Last Admin: 02/14/17 09:51 Dose: 25 mg - Labs Labs: 02/18/17 07:52 02/18/17 07:52 PT 13.2 SECONDS (9.7-12.2) H 01/20/17 19:37 INR 1.2 01/20/17 19:37 APTT 32 SECONDS (21-34) 01/20/17 19:37 - Head Exam Head Exam: ATRAUMATIC - Eye Exam Eye Exam: Normal appearance - ENT Exam ENT Exam: Mucous Membranes Dry - Respiratory Exam Respiratory Exam: NORMAL BREATHING PATTERN - Cardiovascular Exam Cardiovascular Exam: +S1, +S2 - GI/Abdominal Exam GI & Abdominal Exam: Normal Bowel Sounds - Extremities Exam Extremities Exam: Normal Inspection Assessment and Plan (1) Fever of unknown origin Status: Acute (2) Anemia Status: Acute (3) Leukocytosis Status: Acute
--- NOTE | 2017-02-18 22:34 | PN ---
ENDO FOLLOWUP NOTE LOCATION: Room 660. SUBJECTIVE: This is a 51-year-old male with recent persistent fever and generalized weakness and evaluated for possible latent pulmonary tuberculosis and is currently undergoing a comprehensive workup thereof as noted. So he remains clinically and biochemically euthyroid with no overt neck compressive or obstructive manifestations. His thyroid ultrasound confirmed the presence of a nodular goiter with no dominant nodule noted otherwise. LABORATORY DATA: His latest thyroid studies showed a free T4 of 1.51 with a TSH of 7.32. PLAN: So, at this time, we will continue the low-dose levothyroxine modified now to 112 mcg daily as ordered. We will obtain serial thyroid studies and adjust dose regimen accordingly. We will also continue the serial chemistries to be obtained and we will supplement accordingly as needed. We will follow. Gaby Mccormick MD
[2017-02-19] MEDS: Vancomycin 1 gm/NS 200 ml 1 GM/200 ML BAG IVPB SCH (00:27)
[2017-02-19] MEDS: Cefepime IV 2 gm in Dextrose 2 GM/100 ML BAG IVPB SCH ×3 (06:10→19:30)
[2017-02-19] MEDS: Levothyroxine 112 MCG TAB PO SCH (06:11)
[2017-02-19 06:21] LABS: BASO # 0.1 K/uL (0.0-0.2); BASO % 0.2 % (0.0-2.0); EOS # 0.9 K/uL (0.0-0.7); EOS % 3.1 % (0.0-4.0); HEMATOCRIT 26.3 % (35.0-51.0); LYMPH # 2.5 K/uL (1.0-4.3); MEAN CELL VOLUME 83.8 fL (80.0-94.0); MEAN CORPUSCULAR HEMOGLOBIN 27.6 pg (27.0-31.0); MEAN PLATELET VOLUME 7.8 fL (7.2-11.7); MONO # 0.5 K/uL (0.0-0.8); MONO % 1.7 % (0.0-10.0); PLATELET COUNT 489 K/uL (130-400); WHITE BLOOD COUNT 27.6 K/uL (4.8-10.8)
[2017-02-19 06:33] LABS: CHLORIDE 102 mmol/L (98-107)
[2017-02-19 06:34] LABS: POTASSIUM 3.8 mmol/L (3.6-5.2); SODIUM 135 mmol/L (132-148)
[2017-02-19 06:36] LABS: ALB/GLOB RATIO 0.5 (1.0-2.1); ALKALINE PHOSPHATASE 167 U/L (38-126); ALT/SGPT 66 U/L (21-72); AST/SGOT 43 U/L (17-59); BILIRUBIN,TOTAL 0.3 mg/dL (0.2-1.3); BLOOD UREA NITROGEN 14 mg/dL (9-20); CARBON DIOXIDE 25 mmol/L (22-30); GFR AFRICAN-AMERICAN > 60; GLUCOSE,RANDOM 87 mg/dL (75-110); TOTAL PROTEIN 7.5 g/dL (6.3-8.3)
[2017-02-19 06:37] LABS: MAGNESIUM 1.6 mg/dL (1.6-2.3); PHOSPHOROUS 4.4 mg/dL (2.5-4.5)
--- NOTE | 2017-02-19 07:11 | CP.PCM.PN ---
<Loan Reyna - Last Filed: 02/19/17 16:22> Subjective - Date & Time of Evaluation Date of Evaluation: 02/19/17 Time of Evaluation: 07:09 - Subjective Subjective: Pt seen and examined at bedside. Pt says abdominal "inflammation" getting better and now mild. Pt says body aches have greatly improved. Pt says his pain is now mostly in his LEs and knees. Pt complaining of mild chest pain. Patient no longer c/o diarrhea. Patient denies SOB/F/C/AP/N/V/D. Objective - Vital Signs/Intake and Output Vital Signs (last 24 hours): Temp Pulse Resp BP Pulse Ox 98.3 F 69 20 120/72 98 02/19/17 04:00 02/19/17 04:00 02/19/17 04:00 02/19/17 04:00 02/19/17 04:00 - Medications Medications: Current Medications Acetaminophen (Tylenol 325mg Tab) 650 mg PO Q6 PRN PRN Reason: Fever >100.4 F Last Admin: 02/15/17 10:17 Dose: 650 mg Amiodarone HCl (Cordarone) 200 mg PO BID [facility] Last Admin: 02/18/17 18:08 Dose: 200 mg Guaifenesin (Mucinex La) 600 mg PO BID [facility] Last Admin: 02/18/17 18:08 Dose: 600 mg Cefepime HCl (Maxipime Iv 2 Gm Premix) 2 gm in 100 mls @ 100 mls/hr IVPB Q12H [facility] Last Admin: 02/19/17 06:10 Dose: 100 mls/hr Ibuprofen (Motrin Tab) 600 mg PO Q6H PRN PRN Reason: fever Last Admin: 02/19/17 00:26 Dose: 600 mg Ipratropium [place] (Atrovent Hfa) 2 puff IH RQ6 PRN PRN Reason: Shortness of Breath Lactic Acid (Lac-Hydrin 12% Lotion (225 G)) 225 gm EXT Q1H PRN PRN Reason: Dry skin Last Admin: 02/04/17 18:34 Dose: 1 applic Levothyroxine Sodium (Synthroid) 112 mcg PO DAILY@0630 [facility] Last Admin: 02/19/17 06:11 Dose: 112 mcg Ondansetron HCl (Zofran Inj) 4 mg IVP Q6H PRN PRN Reason: nausea Last Admin: 02/14/17 18:46 Dose: 4 mg Promethazine HCl/Codeine (Phenergan/Codeine Oral Syrup) 5 ml PO Q4 PRN PRN Reason: Cough Last Admin: 02/14/17 18:15 Dose: 5 ml Saccharomyces Boulardii (Florastor) 250 mg PO BID [facility] Last Admin: 02/18/17 18:08 Dose: 250 mg Tramadol HCl (Ultram) 25 mg PO BID PRN PRN Reason: Pain, moderate (4-7) Last Admin: 02/14/17 09:51 Dose: 25 mg - Labs Labs: 02/19/17 06:10 02/19/17 06:10 PT 13.2 SECONDS (9.7-12.2) H 01/20/17 19:37 INR 1.2 01/20/17 19:37 APTT 32 SECONDS (21-34) 01/20/17 19:37 - Constitutional Appears: Non-toxic, No Acute Distress - Head Exam Head Exam: NORMAL INSPECTION - Eye Exam Eye Exam: EOMI - ENT Exam ENT Exam: Mucous Membranes Moist - Respiratory Exam Respiratory Exam: NORMAL BREATHING PATTERN. absent: Accessory Muscle Use, Respiratory Distress - Cardiovascular Exam Cardiovascular Exam: REGULAR RHYTHM, +S1, +S2 - GI/Abdominal Exam GI & Abdominal Exam: Soft, Normal Bowel Sounds. absent: Distended, Tenderness - Neurological Exam Neurological Exam: Alert, Awake, Oriented x3 - Psychiatric Exam Psychiatric exam: Normal Affect, Normal Mood - Skin Skin Exam: Dry, Intact, Warm Assessment and Plan - Assessment and Plan (Free Text) Assessment: Leukocytosis * Bronch - Marcella and Coag negative staph from Bronchial washing * Blood culture - 02/12 - negative x3 days * Repeat blood culture 02/13 - negative x 3 days * Urine Culture - 02/12 - negative * Sputum culture - 02/12 - Hafnia alvei, sensitive to Aztreonam * Previous Sputum Culture - Raoultella Planticola, Enterobacter Cloacae * Abx started as per Dr. Calzada, Aztreonam 2g IV q8 and Vancomycin 1g IV q12H started 02/14. Benadryl was given for itchiness secondary to Vancomycin. * MRI Thoracic and Cervical Spine 02/12/17 did not reveal any abscesses but did now show abnormal signal on the vertebrae suspicious for hematologic abnormality * Gallium scan part 1 on 02/15 and part 2 on 02/16 after magnesium citrate prep - Mild patchy increased radiotracer uptake at the lower lung lobes more on the right (Nonspecific and may represent infectious or inflammatory pneumonitis). Diffuse linear/ tubular shaped increased radiotracer uptake at the left abdomen suspicious for uptake in the left colon. Correlate clinically for colitis. * Abdominal pain (02/18) * Repeat CT abd/pelvis: Bibasal or consolidation. Small bulla/bleb in the right lower lobe. No change. Right renal cyst with a calcification noted in the wall of the cyst. No stones are seen in the left kidney. Small hiatal hernia. Very small pleural effusions bilaterally. Small inguinal hernias containing fat bilaterally. * lipase - 159 * amylase - 103 * f/u stool C. diff, serology negative * IR consult for FNA lung bx (held DVT PPX) * [facility] does not recommend LP at this time due to lack of neuro symptoms * Procal: 0.58 * f/u BC * f/u UC Myalgia * New onset b/l upper extremity pain when he flexes the arms, more on the right than the left assoc with headache * significantly decreased muscle strength bilaterally in the upper extremity * Last head CT/Brain MRI was unremarkable * MRI of the spine - No epidural abscess. Bone marrow signaling abnormal. Consider hematopoietic process * Total CK - 50 * ESR - 134 * CRP - >15 * LDH - 719 Right knee pain and leg pain * f/u knee XR * f/u venous duplex RLE Fever * Heme ([facility]) - * Bone Marrow Bx - no abnormal myeloid maturation or increased blasts, no lymphoproliferative disorder or plasma cell dyscrasia (on first sample); tiny normocellular marrow particle showing trilineage hematopoesis without evidence of acute leukemia, metastatic neoplasm, plplasma cell neoplasm, or lymphoma; however sample was suboptimal containing mostly clot and very little marrow sample (on second sample) * Anerobic culture negative * Autoimmune Workup - F/U * dsDNA - <1 * Anti-[place]o - <1 * CHAVA - 1:160, Speckled H, + ANA6 * C-ANCA - negative * P-ANCA - negative * MPO Ab - <1 * PR3 - <1 * Aspergillus - negative * Afebrile since Tmax 102 on 02/14 * Abx cont per Dr. Zheng greenfield. History of hypothyroidism * Synthroid 88mcg PO daily * TSH 9.9 on 01/26 * Repeat thyroid panel showed TSH 7.32, free T4 1.51, Total T3 0.584, and T3 3rd Gen 7.32 on 02/15 * Thyroid ultrasound unremarkable * Consulted Endocrinology (02/17) (Dr. Mccormick) - recs appreciated Vtach * Stable * Patient Had Rapid called on 01/26 for Vtach - was asx * Cath on 01/27 - Normal coronaries, normal EF by echo * Started on Metoprolol 25 Q6H * Echo - EF 65-70 * Stopped therapeutic Lovenox * 01/30 Another episode of Asx Vtach (13 beats), Cards (Shira) started Cordarone 200mg PO BID Hx of TB PPX * On INH at admission, no longer on anything * Sputum x 3 negative * Repeat CT Chest 01/26/17 shows no change when compared to 01/20/17 Hx of hyponatremia * resolved * monitor Hx pancreatic lesion * F/u CT abdomen in 6 mon Superficial Thrombophlebitis * Right Cephalic Vein Thrombosis as per UE Duplex. Aspirin Hx Elevated LFTs * resolving <Tanika Mccartney V - Last Filed: 02/24/17 16:53> Objective - Vital Signs/Intake and Output Vital Signs (last 24 hours): Temp Pulse Resp BP Pulse Ox 98.5 F 71 20 108/51 L 99 02/24/17 08:00 02/24/17 08:00 02/24/17 08:00 02/24/17 08:00 02/24/17 08:00 Intake and Output: 02/24/17 02/24/17 06:59 18:59 Intake Total 340 600 Output Total 750 Balance -410 600 - Medications Medications: Current Medications Acetaminophen (Tylenol 325mg Tab) 650 mg PO Q6 PRN PRN Reason: Fever >100.4 F Last Admin: 02/15/17 10:17 Dose: 650 mg Amiodarone HCl (Cordarone) 200 mg PO BID [facility] Last Admin: 02/24/17 10:48 Dose: 200 mg Enoxaparin Sodium (Lovenox) 40 mg SC DAILY [facility] Last Admin: 02/24/17 10:48 Dose: 40 mg Guaifenesin (Mucinex La) 600 mg PO BID [facility] Last Admin: 02/24/17 10:48 Dose: 600 mg Aztreonam 2 gm/ Sodium (Chloride) 100 mls @ 200 mls/hr IVPB Q8H [facility] Last Admin: 02/24/17 12:33 Dose: 200 mls/hr Ibuprofen (Motrin Tab) 600 mg PO TID PRN PRN Reason: fever Last Admin: 02/23/17 22:10 Dose: 600 mg Ipratropium [place] (Atrovent Hfa) 2 puff IH RQ6 PRN PRN Reason: Shortness of Breath Lactic Acid (Lac-Hydrin 12% Lotion (225 G)) 225 gm EXT Q1H PRN PRN Reason: Dry skin Last Admin: 02/04/17 18:34 Dose: 1 applic Levothyroxine Sodium (Synthroid) 112 mcg PO DAILY@0630 [facility] Last Admin: 02/24/17 06:06 Dose: 112 mcg Ondansetron HCl (Zofran Inj) 4 mg IVP Q6H PRN PRN Reason: nausea Last Admin: 02/14/17 18:46 Dose: 4 mg Promethazine HCl/Codeine (Phenergan/Codeine Oral Syrup) 5 ml PO Q4 PRN PRN Reason: Cough Last Admin: 02/14/17 18:15 Dose: 5 ml Tramadol HCl (Ultram) 25 mg PO BID PRN PRN Reason: Pain, moderate (4-7) Last Admin: 02/19/17 18:11 Dose: 25 mg - Labs Labs: 02/24/17 08:00 02/24/17 08:00 PT 13.2 SECONDS (9.7-12.2) H 01/20/17 19:37 INR 1.2 01/20/17 19:37 APTT 32 SECONDS (21-34) 01/20/17 19:37 Attending/Attestation - Attestation I have personally seen and examined this patient.: Yes I have fully participated in the care of the patient.: Yes I have reviewed all pertinent clinical information, including history, physical exam and plan: Yes Notes (Text): This is late computer entry for 02/19/17. Patient seen, examined, and case discussed with day-time resident. Patient seen this morning during rounds. Patient reporting abdominal pain at bedside. Patient ordered for repeat CT Abdomen and Pelvis at bedside. ESR, CRP remain elevated. patient does not appear to have rhabdomyolosis. Patient reporting right knee pain. Xray ordered mild osteoarthitis. Patient is afebrile since 02/14/17. Blood, urine cultures, and procalcitonin re-ordered given increasing leukocytosis. Will follow-up Interventional radiologist for possible FNA Lung Bx given persistent leukocytosis Resident spoke with Dr. Lee, deferred to road consultant Neurology (Dr. Mason) consult for possible Lumbar Puncture. Discussed with Dr. Calzdaa and Dr Cairas-->Gallium scan result is also nonspecific Discussed with heme-onc, discussed bone marrow pathology report-->unlikely this is leukemia nor lymphoma since patient is without fever since 02/14/17; MRI finding of hematopoesis is non-specific finding Assessment and Plan: 1). Leukocytosis; Fever of Unknown Origin * Pulmonary (Dr. Mckeon) on board * Infectious Disease (Dr. Calzada/Dr. Carias) on board * Heme-onc (Dr. Jennifer Alexandre) on board * s/p bronchoscopy/bronchial washing for Thursday01/30/17 and this was performed: culture showed Marcella albicans and Coag Neg Staph and Sputum AFB is negative--- >completed Diflucan 200 mg IV on 02/03/17 and treated through 02/13/17. * CT scan Chest/Abdomen/Pelvis (02/03/17): largely stable findings within the chest; included septa; thickening; persistent bibasilar consolidation bronchiesctasis; lymphadenopathy including mediastinal and axillary lymph nodes ; cervical lymphadenopathy present * Sputum Culture 02/07/17 showed Raoultella planticola and Enterobacter cloacae and patient was on Ceftriaxone from 02/03/17 through 02/13/17. * S/P Bone Marrow Bx 02/10/17 and Bone Marrow Cultures are currently negative--> . F/U Bone Marrow Bx Pathology * Bone Marrow Bx-no abnormal myeloid maturation or increased blasts, no lymphoproliferative disorder or plasma cell dyscrasia (on first sampl): tiny normocellular marrow particle showing trilinerage hematopoesis without evidence of acute leukemia, metastatic neoplasm, plasma cell neoplasm, or lymphoma; however suboptimal containing mostly clot and very little marrow sample * f/u with heme-onc * Sputum Culture 02/12/17 showed Hafnia alvei-->Aztrenoam 2gm IV Q 8 hours ( active since 02/13/17) * Vancomcyin 1gm IV Q 12hours (active since 02/14/17) by ID * MRI Thoracic and Cervical Spine 02/12/17 did not reveal any abscesses but did now show abnormal signal on the vertebrae suspicious for hematologic abnormality * Patient had Gallium Scan Part #1 on 02/15/17 and Part #2 02/16/17 * Mild patchy increased radiotracer uptake in the lower lobes more on the right (nonspecific and may represent infectious or inflammatory pneumonitis. Diffuse liner/tubular shaped increase radiotracer uptake at the left abdomen suspicious for uptake in the left colon. Correlate clinically for colitis * CT Abdomen/Pelvis w PO contrast (02/18/17): bibasal or consolidation. Small bulla/bleb in right lower lobe. No change. Right renal cyst with a calcification in the wall of the cyst. No stones are seen in the left kidney. Small hiatal hernia. Very small pleural effusions bilaterally. Small inguinal hernia containing fat bilaterally * Possible FNA Lung Bx, Lumbar Puncture, and NEVAEH should the pathology for the Bone Marrow biopsy or the Gallium Scan not reveal anything. 2). Hx Elevated Troponin: likely secondary to episode of V Tach. Cardiac Cath performed by Dr. Pryor 01/27/17 showed clean coronaries. Therapeutic Lovenox was discontinued. Patient is currently on telemetry. Amiodarone 200mg PO bid 3). Hyponatremia: Monitor 4). Hx Bacteremia: repeat cultures have been negative to date. Latest Blood cultures from 02/13/17 show no growth after 5 days and from 02/12/17 no growth for 5 days Blood cultures 02/19/17, Urine culture (02/19/17), Procalcitonin ordered 5). Hx of TB Prophylaxis: he was on INH upon admission but currently not on anything given transaminitis. Sputum x [address] Chest 01/26/17 shows no change when compared to 01/20/17 (please see full reports). 6). Hx Diffuse Rash: resolved 7). Hx Pancreatic Lesion: F/U CT Abdomen in 6 months; GI seen during hospitalization. 8). 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 Aspirin 9). Hx Constipation: resolved 10). Anemia likely secondary to Chronic Disease: stable 11). Hx Hypothyroidism: levothyroxine 88mcg PO q AM; f/u thyroid studies; thyroid US unremarkable 12). Hx Vertigo: resolved and was likely secondary to the Minocycline that patient was on at the time of admission and once discontinued, this issue resolved and has not recurred 13). Hx Diarrhea: resolved 14). Hx Bilateral Lower Leg Edema: duplex are negative, much improved and now mild non-pitting edema involving the ankles 15). Hx Elevated LFTs: monitor; hepatitis negative 16). History of hypothyroidism. c/w Synthroid 88mcg PO AM, TSH: 9.9 on 01/26/17, repeat thyroid panel: TSH: 7.32, Free t4: 1.51, Total T3: 0.584, T3 3rd generation 7.32, consult: endocrinology
--- NOTE | 2017-02-19 08:16 | PN ---
DATE: SUBJECTIVE: The patient has been started again on antibiotics as his white count started to go up. He is complaining of low-grade temperature right now and complains of multiple joint pains, but he denies any difficulty breathing at this time. Denies any abdominal pain. No diarrhea reported. PHYSICAL EXAMINATION: VITAL SIGNS: T-max is 99.7, pulse is 77, blood pressure is 122/68, and respirations are 20. HEENT: Head is atraumatic and normocephalic. NECK: Supple. LUNGS: Clear. HEART: S1 and S2 is regular. ABDOMEN: Soft and nontender. No guarding and no rigidity present, but complains of joint pains at this time. ASSESSMENT AND PLAN: He was on vancomycin and Azactam, but I find that his cultures have come back showing sputum having and this is more sensitive to cefepime than to Azactam, so we will discontinue Azactam and add the other antibiotic and we will follow. The patient seems to have bad respiratory issues with bronchiectasis, his Gold QuantiFERON was indeterminate, but we were not able to get any T-spot, which may also have white count is 22.5, today, hemoglobin is 9.4, hematocrit is 28.9, platelet count is 519, neutrophils are 87, bands are 1 at this time and his thyroglobulin antibody was 778. He does have thyroid problem. He also has thyroperoxidase antibody. Clostridium difficile is negative and there is a reference report, I am not able to follow it by at this time, we will change the antibiotic and we will follow up. Prognosis is still poor. He complains of joint pains and he is also for abdominopelvic CT today as per gallium took up in the right upper quadrant. Final findings showed there is consolidation in both lung mayes, there is a bleb noted in the posterior basal segment of the right lower lobe, pleural fluid dissects into major fissure on the right, small pleural effusions are noted bilaterally. There is a small hiatal hernia and there is small inguinal hernia containing fat and there is right renal cyst with calcification noted in the OR. No stones are noted in the left kidney. This was the CAT scan report today. We will continue with the antibiotics at this time and he had a gallium scan and gallium scan showed in the lower lobe more on the right nonspecific; may represent infection, inflammation or pneumonitis, diffuse linear tubular shaped increase radiotracer uptake at the left abdomen suspicious for uptake in the left colon correlate clinically for colitis. He did have a lot of antibiotics, white count goes further and we will add Flagyl empirically or vancomycin p.o. empirically. We will follow. The patient has been here long, but continues to deteriorate with fevers and WBC increasing. Kofi Carias MD
[2017-02-19 08:43] LABS: EOSINOPHIL 2 % (0-4); NEUTROPHIL 89 % (50-75); TOTAL CELLS COUNTED 100
[2017-02-19] MEDS: Saccharomyces Boulardi 250 mg Cap PO SCH ×2 (10:06→18:11)
[2017-02-19] MEDS: guaiFENesin 600 mg ER Tab PO SCH ×2 (10:14→18:11)
[2017-02-19] MEDS: Tramadol 25 mg PO PRN (18:11)
--- NOTE | 2017-02-19 19:05 | CP.PCM.PN ---
Subjective - Date & Time of Evaluation Date of Evaluation: 02/19/17 Time of Evaluation: 07:00 - Subjective Subjective: fever on and off iv rx in progress Objective - Vital Signs/Intake and Output Vital Signs (last 24 hours): Temp Pulse Resp BP Pulse Ox 98.4 F 73 20 111/68 99 02/19/17 15:28 02/19/17 15:28 02/19/17 15:28 02/19/17 15:28 02/19/17 15:28 Intake and Output: 02/19/17 02/19/17 06:59 18:59 Intake Total 260 Balance 260 - Medications Medications: Current Medications Acetaminophen (Tylenol 325mg Tab) 650 mg PO Q6 PRN PRN Reason: Fever >100.4 F Last Admin: 02/15/17 10:17 Dose: 650 mg Amiodarone HCl (Cordarone) 200 mg PO BID [facility] Last Admin: 02/19/17 18:11 Dose: 200 mg Guaifenesin (Mucinex La) 600 mg PO BID [facility] Last Admin: 02/19/17 18:11 Dose: 600 mg Cefepime HCl (Maxipime Iv 2 Gm Premix) 2 gm in 100 mls @ 200 mls/hr IVPB Q8H [facility] Stop: 02/24/17 19:01 Ibuprofen (Motrin Tab) 600 mg PO Q6H PRN PRN Reason: fever Last Admin: 02/19/17 00:26 Dose: 600 mg Ipratropium [place] (Atrovent Hfa) 2 puff IH RQ6 PRN PRN Reason: Shortness of Breath Lactic Acid (Lac-Hydrin 12% Lotion (225 G)) 225 gm EXT Q1H PRN PRN Reason: Dry skin Last Admin: 02/04/17 18:34 Dose: 1 applic Levothyroxine Sodium (Synthroid) 112 mcg PO DAILY@0630 [facility] Last Admin: 02/19/17 06:11 Dose: 112 mcg Ondansetron HCl (Zofran Inj) 4 mg IVP Q6H PRN PRN Reason: nausea Last Admin: 02/14/17 18:46 Dose: 4 mg Promethazine HCl/Codeine (Phenergan/Codeine Oral Syrup) 5 ml PO Q4 PRN PRN Reason: Cough Last Admin: 02/14/17 18:15 Dose: 5 ml Saccharomyces Boulardii (Florastor) 250 mg PO BID [facility] Last Admin: 02/19/17 18:11 Dose: 250 mg Tramadol HCl (Ultram) 25 mg PO BID PRN PRN Reason: Pain, moderate (4-7) Last Admin: 02/19/17 18:11 Dose: 25 mg - Labs Labs: 02/19/17 06:10 02/19/17 06:10 PT 13.2 SECONDS (9.7-12.2) H 01/20/17 19:37 INR 1.2 01/20/17 19:37 APTT 32 SECONDS (21-34) 01/20/17 19:37 Assessment and Plan (1) Aspiration into lower respiratory tract Status: Acute (2) PPD+ (purified protein derivative positive) Status: Acute (3) Fever of unknown origin Status: Acute
[2017-02-20 02:52] LABS: BRUCELLA IGG 0.06; BRUCELLA IGM 0.05
[2017-02-20] MEDS: Cefepime IV 2 gm in Dextrose 2 GM/100 ML BAG IVPB SCH ×3 (03:00→18:27)
[2017-02-20] MEDS: Levothyroxine 112 MCG TAB PO SCH (05:41)
[2017-02-20 07:24] LABS: BASO % 0.2 % (0.0-2.0); EOS # 0.9 K/uL (0.0-0.7); EOS % 3.5 % (0.0-4.0); HEMATOCRIT 29.1 % (35.0-51.0); LYMPH # 2.4 K/uL (1.0-4.3); MEAN CELL VOLUME 83.7 fL (80.0-94.0); MEAN CORPUSCULAR HEMOGLOBIN 27.5 pg (27.0-31.0); MEAN CORPUSCULAR HGB CONC 32.9 g/dL (33.0-37.0); MONO # 0.6 K/uL (0.0-0.8); MONO % 2.2 % (0.0-10.0); NRBC % 0.1 % (0.0-2.0); PLATELET COUNT 542 K/uL (130-400); RED CELL DISTRIBUTION WIDTH 19.4 % (11.5-14.5); WHITE BLOOD COUNT 27.1 K/uL (4.8-10.8)
[2017-02-20 08:07] LABS: CHLORIDE 103 mmol/L (98-107); POTASSIUM 4.3 mmol/L (3.6-5.2); SODIUM 136 mmol/L (132-148)
[2017-02-20 08:09] LABS: ALB/GLOB RATIO 0.5 (1.0-2.1); ALKALINE PHOSPHATASE 150 U/L (38-126); AST/SGOT 43 U/L (17-59); BILIRUBIN,TOTAL 0.4 mg/dL (0.2-1.3); BLOOD UREA NITROGEN 15 mg/dL (9-20); CARBON DIOXIDE 28 mmol/L (22-30); GFR AFRICAN-AMERICAN > 60; TOTAL PROTEIN 8.1 g/dL (6.3-8.3)
[2017-02-20 08:10] LABS: ALT/SGPT 61 U/L (21-72); CALCIUM 8.1 mg/dl (8.6-10.4); GLUCOSE,RANDOM 85 mg/dL (75-110); MAGNESIUM 1.7 mg/dL (1.6-2.3); PHOSPHOROUS 4.4 mg/dL (2.5-4.5)
[2017-02-20 08:44] LABS: EOSINOPHIL 1 % (0-4); NEUTROPHIL 90 % (50-75); TOTAL CELLS COUNTED 100
--- NOTE | 2017-02-20 09:56 | RAD ---
PROCEDURE: Right Knee Radiographs. HISTORY: right knee pain COMPARISON: None. FINDINGS: BONES: Normal. No fracture. JOINTS: Mild osteoarthritic changes. JOINT EFFUSION: None. OTHER FINDINGS: None. IMPRESSION: Mild osteoarthritic changes.
[2017-02-20] MEDS: guaiFENesin 600 mg ER Tab PO SCH ×2 (10:48→18:27)
[2017-02-20] MEDS: Saccharomyces Boulardi 250 mg Cap PO SCH ×2 (10:48→18:27)
--- NOTE | 2017-02-20 11:46 | PN ---
ENDO FOLLOWUP NOTE LOCATION: Room 660. This is a 51-year-old male, presenting here with persistent fevers and generalized body weakness with abnormal pulmonary infiltrates radiologically, and currently being managed for possible latent pulmonary tuberculosis and is also being followed closely for metabolic management. He also has an underlying multinodular goiter and remains clinically euthyroid with early hypothyroidism as noted thereof. His latest chemistries showed the BUN of 14, sodium 135, potassium 3.8, chloride 102, CO2 of 25, glucose 87, and creatinine 0.5. The latest thyroid study showed a free T4 of 1.51 with a TSH of 7.32 and a thyroglobulin level of 0.9. So at this time, we will continue to modify levothyroxine replacement therapy given as 112 mcg daily as ordered. We would hold off further dose adjustments up to 4 to 6 weeks for optimal dose equilibration to the current dosing regimen of the levothyroxine medication as given. We will sign off from the patient's care at this time and would recommend the same dosing upon discharge. No indication at this time for any kind of fine-needle aspiration biopsy procedure. Gaby Mccormick MD
--- NOTE | 2017-02-20 15:03 | CP.PCM.CON ---
History of Present Illness - History of Present Illness History of Present Illness: Mr. Castano is a 51-year-old man with a prolonged hospital course and work-up for fever, infection, GI disturbance and overall no source for fever and leukocytosis. He had some imaging of the spine which showed bone marrow signs of possible hematopeitic disorder. He was complaining of nausea and dizziness before, but does not feel any neurologic deficits at this time: no headache, no vertigo, no visual deficits, no meningeal signs, no focal neurologic weakness, or sensory changes that he complains of. He does say that he has pain of left shoulder that feels warm and makes him feel week and he also has pain and some resultant weakness of the left lower extremity. MRI of the brain was normal. Review of Systems - Review of Systems All systems: reviewed and no additional remarkable complaints except Past Patient History - Infectious Disease Hx of Infectious Diseases: None - Past Medical History & Family History Past Medical History?: Yes - Past Social History Smoking Status: Never Smoked - CARDIAC Hx Cardiac Disorders: No - PULMONARY Hx Pneumonia: Yes - NEUROLOGICAL Hx Neurological Disorder: No - HEENT Hx HEENT Problems: No - RENAL Hx Chronic Kidney Disease: No - ENDOCRINE/METABOLIC Hx Hypothyroidism: Yes - HEMATOLOGICAL/ONCOLOGICAL Hx Blood Disorders: No - INTEGUMENTARY Hx Dermatological Problems: No Hx Eczema: Yes - MUSCULOSKELETAL/RHEUMATOLOGICAL Hx Falls: No - GASTROINTESTINAL Hx Gastrointestinal Disorders: No - GENITOURINARY/GYNECOLOGICAL Hx Genitourinary Disorders: No - PSYCHIATRIC Hx Substance Use: No - SURGICAL HISTORY Hx Surgeries: No - ANESTHESIA Hx Anesthesia: No Meds Allergies/Adverse Reactions: Allergies Allergy/AdvReac Type Severity Reaction Status Date / Time levofloxacin Allergy RASH Verified 01/17/17 07:47 vancomycin AdvReac ITCHING Verified 02/16/17 09:06 - Medications Medications: Current Medications Acetaminophen (Tylenol 325mg Tab) 650 mg PO Q6 PRN PRN Reason: Fever >100.4 F Last Admin: 02/15/17 10:17 Dose: 650 mg Amiodarone HCl (Cordarone) 200 mg PO BID [facility] Last Admin: 02/20/17 10:48 Dose: 200 mg Guaifenesin (Mucinex La) 600 mg PO BID [facility] Last Admin: 02/20/17 10:48 Dose: 600 mg Cefepime HCl (Maxipime Iv 2 Gm Premix) 2 gm in 100 mls @ 200 mls/hr IVPB Q8H [facility] Stop: 02/24/17 19:01 Last Admin: 02/20/17 10:49 Dose: 200 mls/hr Ibuprofen (Motrin Tab) 600 mg PO TID PRN PRN Reason: fever Last Admin: 02/20/17 14:21 Dose: 600 mg Ipratropium Vendor (Atrovent Hfa) 2 puff IH RQ6 PRN PRN Reason: Shortness of Breath Lactic Acid (Lac-Hydrin 12% Lotion (225 G)) 225 gm EXT Q1H PRN PRN Reason: Dry skin Last Admin: 02/04/17 18:34 Dose: 1 applic Levothyroxine Sodium (Synthroid) 112 mcg PO DAILY@0630 [facility] Last Admin: 02/20/17 05:41 Dose: 112 mcg Ondansetron HCl (Zofran Inj) 4 mg IVP Q6H PRN PRN Reason: nausea Last Admin: 02/14/17 18:46 Dose: 4 mg Promethazine HCl/Codeine (Phenergan/Codeine Oral Syrup) 5 ml PO Q4 PRN PRN Reason: Cough Last Admin: 02/14/17 18:15 Dose: 5 ml Saccharomyces Boulardii (Florastor) 250 mg PO BID [facility] Last Admin: 02/20/17 10:48 Dose: 250 mg Tramadol HCl (Ultram) 25 mg PO BID PRN PRN Reason: Pain, moderate (4-7) Last Admin: 02/19/17 18:11 Dose: 25 mg Physical Exam - Constitutional Appears: Cachectic - Head Exam Head Exam: ATRAUMATIC, NORMAL INSPECTION, NORMOCEPHALIC - Eye Exam Eye Exam: EOMI, Normal appearance, PERRL - ENT Exam ENT Exam: Mucous Membranes Moist, Normal Exam - Cardiovascular Exam Cardiovascular Exam: REGULAR RHYTHM - GI/Abdominal Exam GI & Abdominal Exam: Normal Bowel Sounds, Soft. absent: Tenderness - Neurological Exam Neurological exam: Alert, CN II-XII Intact, Oriented x3 - Expanded Neurological Exam Expanded Patient oriented to: person, place, time Cranial nerves: EOM's Intact: Normal, Facial Sensation: Normal Ataxia: No Cerebellar Function: Finger to Nose: Normal Upper motor neuron: Babinski Sign: Normal Sensory exam: Lower Extremity Light Touch: Normal, Upper Extremity Light Touch: Normal Neuro motor strength exam: Left Upper Extremity: 4, Right Upper Extremity: 5, Left Lower Extremity: 5, Right Lower Extremity: 5 DTR: Bicep Left: 3+, Bicep Right: 3+, Patellar Left: 3+, Patellar Right: 3+ - Psychiatric Exam Psychiatric exam: Normal Affect, Normal Mood - Skin Skin Exam: Rash Results - Vital Signs Recent Vital Signs: Last Vital Signs Temp 97.5 F L 02/20/17 07:00 Pulse 61 02/20/17 07:00 Resp 20 02/20/17 07:00 BP 112/69 02/20/17 07:00 Pulse Ox 98 02/20/17 07:00 - Labs Result Diagrams: 02/20/17 07:04 02/20/17 07:04 Labs: Laboratory Results - last 24 hr 02/17/17 02/19/17 02/19/17 06:25 06:10 17:21 WBC RBC Hgb Hct MCV MCH MCHC RDW Plt Count MPV Neut % (Auto) Lymph % (Auto) [place] % (Auto) Eos % (Auto) Baso % (Auto) Neut # Lymph # [place] # Eos # Baso # Neutrophils % (Manual) Band Neutrophils % Lymphocytes % (Manual) Monocytes % (Manual) Eosinophils % (Manual) Platelet Estimate Polychromasia Hypochromasia (manual) Anisocytosis (manual) Microcytosis (manual) Sodium Potassium Chloride Carbon Dioxide Anion Gap BUN Creatinine Est GFR ( Amer) Est GFR (Non-Af Amer) Random Glucose Calcium Phosphorus Magnesium Total Bilirubin AST ALT Alkaline Phosphatase Total Protein Albumin Globulin Albumin/Globulin Ratio Procalcitonin 0.58 H 0.43 Brucella IgG Antibody 0.06 Brucella IgM Antibody 0.05 02/20/17 02/20/17 07:04 07:04 WBC 27.1 H RBC 3.48 L Hgb 9.6 L Hct 29.1 L MCV 83.7 MCH 27.5 MCHC 32.9 L RDW 19.4 H Plt Count 542 H MPV 8.0 Neut % (Auto) 85.1 H Lymph % (Auto) 9.0 L [place] % (Auto) 2.2 Eos % (Auto) 3.5 Baso % (Auto) 0.2 Neut # 23.1 H Lymph # 2.4 [place] # 0.6 Eos # 0.9 H Baso # 0.0 Neutrophils % (Manual) 90 H Band Neutrophils % 1 Lymphocytes % (Manual) 8 L Monocytes % (Manual) TEST NOT PERFORMED Eosinophils % (Manual) 1 Platelet Estimate Slightly increased H Polychromasia Slight Hypochromasia (manual) Slight Anisocytosis (manual) Slight Microcytosis (manual) Slight Sodium 136 Potassium 4.3 Chloride 103 Carbon Dioxide 28 Anion Gap 9 L BUN 15 Creatinine 0.6 L Est GFR ( Amer) > 60 Est GFR (Non-Af Amer) > 60 Random Glucose 85 Calcium 8.1 L Phosphorus 4.4 Magnesium 1.7 Total Bilirubin 0.4 AST 43 ALT 61 Alkaline Phosphatase 150 H Total Protein 8.1 Albumin 2.7 L Globulin 5.4 H Albumin/Globulin Ratio 0.5 L Procalcitonin Brucella IgG Antibody Brucella IgM Antibody Assessment & Plan (1) Dizziness Assessment and Plan: Continue management per primary team. I do not recommend LP at this time since the patient does not have any headache, nuchal rigidity, focal neurologic deficits, seizures or other indications for an LP. Thank you. Status: Resolved Priority: Low
--- NOTE | 2017-02-20 15:11 | VASCLAB ---
PROCEDURE: Right Lower Extremity Venous Duplex Exam. HISTORY: Right calf pain, r/o DVT PRIORS: None. TECHNIQUE: Right common femoral, femoral, popliteal and posterior tibial, peroneal and great saphenous veins were evaluated. Flow was assessed with color Doppler, compressibility, assessment of phasic flow and augmentation response. Report prepared by PATIENCE Miramontes FINDINGS: RIGHT: 1. Common Femoral Vein: 1.1. Compressibility - Fully compressible: Thrombus - None: Flow - Phasic: Augmentation -Normal: Reflux - None. 2. Femoral Vein: 2.1. Compressibility - Fully compressible: Thrombus - None: Flow - Phasic: Augmentation -Normal: Reflux - None. 3. Popliteal Vein: 3.1. Compressibility - Fully compressible: Thrombus - None: Flow - Phasic: Augmentation -Normal: Reflux - None. 4. Posterior Tibial Vein: 4.1. Compressibility - Fully compressible: Thrombus - None: Flow - Phasic: Augmentation -Normal: Reflux - None. 5. Peroneal Vein: 5.1. Compressibility - Fully compressible: Thrombus - None: Flow - Phasic: Augmentation -Normal: Reflux - None. 6. Great Saphenous Vein: 6.1. Compressibility - Fully compressible: Thrombus -None: Flow - Phasic: Augmentation - Normal: Reflux - None. OTHER FINDINGS: IMPRESSION: No evidence of deep or superficial vein thrombosis of the right lower extremity with excellent venous flow. Normal valve function noted of the right side. Normal venous flow noted in the left common femoral vein.
--- NOTE | 2017-02-20 15:36 | CP.PCM.PN ---
<Loan Reyna - Last Filed: 02/20/17 18:51> Subjective - Date & Time of Evaluation Date of Evaluation: 02/20/17 Time of Evaluation: 15:36 - Subjective Subjective: Patient seen and examined at bedside. Patient doing well today with no new complaints at this time. Patient says the leg pain has improved. Pt denies f/c/ cp/sob/ap/n/v/d/c. Objective - Vital Signs/Intake and Output Vital Signs (last 24 hours): Temp Pulse Resp BP Pulse Ox 97.5 F L 61 20 112/69 98 02/20/17 07:00 02/20/17 07:00 02/20/17 07:00 02/20/17 07:00 02/20/17 07:00 Intake and Output: 02/20/17 02/20/17 06:59 18:59 Intake Total 400 500 Output Total 400 Balance 0 500 - Medications Medications: Current Medications Acetaminophen (Tylenol 325mg Tab) 650 mg PO Q6 PRN PRN Reason: Fever >100.4 F Last Admin: 02/15/17 10:17 Dose: 650 mg Amiodarone HCl (Cordarone) 200 mg PO BID [facility] Last Admin: 02/20/17 10:48 Dose: 200 mg Guaifenesin (Mucinex La) 600 mg PO BID [facility] Last Admin: 02/20/17 10:48 Dose: 600 mg Cefepime HCl (Maxipime Iv 2 Gm Premix) 2 gm in 100 mls @ 200 mls/hr IVPB Q8H [facility] Stop: 02/24/17 19:01 Last Admin: 02/20/17 10:49 Dose: 200 mls/hr Ibuprofen (Motrin Tab) 600 mg PO TID PRN PRN Reason: fever Last Admin: 02/20/17 14:21 Dose: 600 mg Ipratropium Mcqueeney (Atrovent Hfa) 2 puff IH RQ6 PRN PRN Reason: Shortness of Breath Lactic Acid (Lac-Hydrin 12% Lotion (225 G)) 225 gm EXT Q1H PRN PRN Reason: Dry skin Last Admin: 02/04/17 18:34 Dose: 1 applic Levothyroxine Sodium (Synthroid) 112 mcg PO DAILY@0630 [facility] Last Admin: 02/20/17 05:41 Dose: 112 mcg Ondansetron HCl (Zofran Inj) 4 mg IVP Q6H PRN PRN Reason: nausea Last Admin: 02/14/17 18:46 Dose: 4 mg Promethazine HCl/Codeine (Phenergan/Codeine Oral Syrup) 5 ml PO Q4 PRN PRN Reason: Cough Last Admin: 02/14/17 18:15 Dose: 5 ml Saccharomyces Boulardii (Florastor) 250 mg PO BID [facility] Last Admin: 02/20/17 10:48 Dose: 250 mg Tramadol HCl (Ultram) 25 mg PO BID PRN PRN Reason: Pain, moderate (4-7) Last Admin: 02/19/17 18:11 Dose: 25 mg - Labs Labs: 02/20/17 07:04 02/20/17 07:04 PT 13.2 SECONDS (9.7-12.2) H 01/20/17 19:37 INR 1.2 01/20/17 19:37 APTT 32 SECONDS (21-34) 01/20/17 19:37 - Constitutional Appears: Non-toxic, No Acute Distress - Head Exam Head Exam: NORMAL INSPECTION - Eye Exam Eye Exam: EOMI - ENT Exam ENT Exam: Mucous Membranes Moist - Respiratory Exam Respiratory Exam: NORMAL BREATHING PATTERN. absent: Accessory Muscle Use, Wheezes, Respiratory Distress - Cardiovascular Exam Cardiovascular Exam: REGULAR RHYTHM, +S1, +S2 - GI/Abdominal Exam GI & Abdominal Exam: Soft, Normal Bowel Sounds. absent: Distended, Tenderness - Extremities Exam Extremities Exam: Normal Inspection, Pedal Edema (RLE), Tenderness (RLE) - Neurological Exam Neurological Exam: Alert, Awake - Psychiatric Exam Psychiatric exam: Normal Affect, Normal Mood - Skin Skin Exam: Dry, Intact, Warm Assessment and Plan - Assessment and Plan (Free Text) Assessment: Leukocytosis * Bronch - Marcella and Coag negative staph from Bronchial washing * Blood culture - 02/12 - negative x3 days * Repeat blood culture 02/13 - negative x 3 days * Urine Culture - 02/12 - negative * Sputum culture - 02/12 - Hafnia alvei, sensitive to Aztreonam * Previous Sputum Culture - Raoultella Planticola, Enterobacter Cloacae * Abx started as per Dr. Calzada, Cefepime 2 gm IV q8h * MRI Thoracic and Cervical Spine 02/12/17 did not reveal any abscesses but did now show abnormal signal on the vertebrae suspicious for hematologic abnormality * Gallium scan part 1 on 02/15 and part 2 on 02/16 after magnesium citrate prep - Mild patchy increased radiotracer uptake at the lower lung lobes more on the right (Nonspecific and may represent infectious or inflammatory pneumonitis). Diffuse linear/ tubular shaped increased radiotracer uptake at the left abdomen suspicious for uptake in the left colon. Correlate clinically for colitis. * Abdominal pain (02/18) * Repeat CT abd/pelvis: Bibasal or consolidation. Small bulla/bleb in the right lower lobe. No change. Right renal cyst with a calcification noted in the wall of the cyst. No stones are seen in the left kidney. Small hiatal hernia. Very small pleural effusions bilaterally. Small inguinal hernias containing fat bilaterally. * lipase - 159 * amylase - 103 * f/u stool C. diff, serology negative * IR consult for FNA lung bx (held DVT PPX) * Neurology consult ([facility]) does not recommend LP at this time due to lack of neuro symptoms * Procal: 0.58 * BC - No growth after 24 hours * f/u UC Myalgia * New onset b/l upper extremity pain when he flexes the arms, more on the right than the left assoc with headache * significantly decreased muscle strength bilaterally in the upper extremity * Last head CT/Brain MRI was unremarkable * MRI of the spine - No epidural abscess. Bone marrow signaling abnormal. Consider hematopoietic process * Total CK - 50 * ESR - 134 * CRP - >15 * LDH - 719 Right knee pain and leg pain * knee XR - arthritis * f/u venous duplex RLE Fever * Heme ([place]) - * Bone Marrow Bx - no abnormal myeloid maturation or increased blasts, no lymphoproliferative disorder or plasma cell dyscrasia (on first sample); tiny normocellular marrow particle showing trilineage hematopoesis without evidence of acute leukemia, metastatic neoplasm, plplasma cell neoplasm, or lymphoma; however sample was suboptimal containing mostly clot and very little marrow sample (on second sample) * Anerobic culture negative * Autoimmune Workup - F/U * dsDNA - <1 * Anti-Montelongo - <1 * CHAVA - 1:160, Speckled H, + ANA6 * C-ANCA - negative * P-ANCA - negative * MPO Ab - <1 * PR3 - <1 * Aspergillus - negative * Afebrile since Tmax 102 on 02/14 * Abx cont per Dr. Zheng greenfield. History of hypothyroidism * Synthroid 88mcg PO daily * TSH 9.9 on 01/26 * Repeat thyroid panel showed TSH 7.32, free T4 1.51, Total T3 0.584, and T3 3rd Gen 7.32 on 02/15 * Thyroid ultrasound unremarkable * Consulted Endocrinology (02/17) (Dr. Mccormick) - recs appreciated Vtach * Stable * Patient Had Rapid called on 01/26 for Vtach - was asx * Cath on 01/27 - Normal coronaries, normal EF by echo * Started on Metoprolol 25 Q6H * Echo - EF 65-70 * Stopped therapeutic Lovenox * 01/30 Another episode of Asx Vtach (13 beats), Cards ([facility]) started Cordarone 200mg PO BID Hx of TB PPX * On INH at admission, no longer on anything * Sputum x 3 negative * Repeat CT Chest 01/26/17 shows no change when compared to 01/20/17 Hx of hyponatremia * resolved * monitor Hx pancreatic lesion * F/u CT abdomen in 6 mon Superficial Thrombophlebitis * Right Cephalic Vein Thrombosis as per UE Duplex. Aspirin Hx Elevated LFTs * resolving <Tanika Mccartney V - Last Filed: 02/24/17 16:58> Objective - Vital Signs/Intake and Output Vital Signs (last 24 hours): Temp Pulse Resp BP Pulse Ox 98.5 F 71 20 108/51 L 99 02/24/17 08:00 02/24/17 08:00 02/24/17 08:00 02/24/17 08:00 02/24/17 08:00 Intake and Output: 02/24/17 02/24/17 06:59 18:59 Intake Total 340 600 Output Total 750 Balance -410 600 - Medications Medications: Current Medications Acetaminophen (Tylenol 325mg Tab) 650 mg PO Q6 PRN PRN Reason: Fever >100.4 F Last Admin: 02/15/17 10:17 Dose: 650 mg Amiodarone HCl (Cordarone) 200 mg PO BID [facility] Last Admin: 02/24/17 10:48 Dose: 200 mg Enoxaparin Sodium (Lovenox) 40 mg SC DAILY [facility] Last Admin: 02/24/17 10:48 Dose: 40 mg Guaifenesin (Mucinex La) 600 mg PO BID [facility] Last Admin: 02/24/17 10:48 Dose: 600 mg Aztreonam 2 gm/ Sodium (Chloride) 100 mls @ 200 mls/hr IVPB Q8H [facility] Last Admin: 02/24/17 12:33 Dose: 200 mls/hr Ibuprofen (Motrin Tab) 600 mg PO TID PRN PRN Reason: fever Last Admin: 02/23/17 22:10 Dose: 600 mg Ipratropium Mcqueeney (Atrovent Hfa) 2 puff IH RQ6 PRN PRN Reason: Shortness of Breath Lactic Acid (Lac-Hydrin 12% Lotion (225 G)) 225 gm EXT Q1H PRN PRN Reason: Dry skin Last Admin: 02/04/17 18:34 Dose: 1 applic Levothyroxine Sodium (Synthroid) 112 mcg PO DAILY@0630 [facility] Last Admin: 02/24/17 06:06 Dose: 112 mcg Ondansetron HCl (Zofran Inj) 4 mg IVP Q6H PRN PRN Reason: nausea Last Admin: 02/14/17 18:46 Dose: 4 mg Promethazine HCl/Codeine (Phenergan/Codeine Oral Syrup) 5 ml PO Q4 PRN PRN Reason: Cough Last Admin: 02/14/17 18:15 Dose: 5 ml Tramadol HCl (Ultram) 25 mg PO BID PRN PRN Reason: Pain, moderate (4-7) Last Admin: 02/19/17 18:11 Dose: 25 mg - Labs Labs: 02/24/17 08:00 02/24/17 08:00 PT 13.2 SECONDS (9.7-12.2) H 01/20/17 19:37 INR 1.2 01/20/17 19:37 APTT 32 SECONDS (21-34) 01/20/17 19:37 Attending/Attestation - Attestation I have personally seen and examined this patient.: Yes I have fully participated in the care of the patient.: Yes I have reviewed all pertinent clinical information, including history, physical exam and plan: Yes Notes (Text): This is late computer entry for 02/20/17. Patient seen, examined, and case discussed with day-time resident. Patient seen this morning during rounds. White count increasing but stable in 27. Patient is afebrile since 02/14/17. Procalcitonin has normalized. Will need to follow-up with interventional radiologist regarding FNA Lung Bx. Discussed with neurologist, LP not indicated and no neurologic deficits. Assessment and Plan: 1). Leukocytosis; Fever of Unknown Origin * Pulmonary (Dr. Mckeon) on board * Infectious Disease (Dr. Calzada/Dr. Carias) on board * Heme-onc (Dr. Jennifer Alexandre) on board * s/p bronchoscopy/bronchial washing for Thursday01/30/17 and this was performed: culture showed Marcella albicans and Coag Neg Staph and Sputum AFB is negative--- >completed Diflucan 200 mg IV on 02/03/17 and treated through 02/13/17. * CT scan Chest/Abdomen/Pelvis (02/03/17): largely stable findings within the chest; included septa; thickening; persistent bibasilar consolidation bronchiesctasis; lymphadenopathy including mediastinal and axillary lymph nodes ; cervical lymphadenopathy present * Sputum Culture 02/07/17 showed Raoultella planticola and Enterobacter cloacae and patient was on Ceftriaxone from 02/03/17 through 02/13/17. * S/P Bone Marrow Bx 02/10/17 and Bone Marrow Cultures are currently negative--> . F/U Bone Marrow Bx Pathology * Bone Marrow Bx-no abnormal myeloid maturation or increased blasts, no lymphoproliferative disorder or plasma cell dyscrasia (on first sampl): tiny normocellular marrow particle showing trilinerage hematopoesis without evidence of acute leukemia, metastatic neoplasm, plasma cell neoplasm, or lymphoma; however suboptimal containing mostly clot and very little marrow sample * f/u with heme-onc * Sputum Culture 02/12/17 showed Hafnia alvei-->Aztrenoam 2gm IV Q 8 hours ( active since 02/13/17) * Vancomcyin 1gm IV Q 12hours (active since 02/14/17) by ID * MRI Thoracic and Cervical Spine 02/12/17 did not reveal any abscesses but did now show abnormal signal on the vertebrae suspicious for hematologic abnormality * Patient had Gallium Scan Part #1 on 02/15/17 and Part #2 02/16/17 * Mild patchy increased radiotracer uptake in the lower lobes more on the right (nonspecific and may represent infectious or inflammatory pneumonitis. Diffuse liner/tubular shaped increase radiotracer uptake at the left abdomen suspicious for uptake in the left colon. Correlate clinically for colitis * CT Abdomen/Pelvis w PO contrast (02/18/17): bibasal or consolidation. Small bulla/bleb in right lower lobe. No change. Right renal cyst with a calcification in the wall of the cyst. No stones are seen in the left kidney. Small hiatal hernia. Very small pleural effusions bilaterally. Small inguinal hernia containing fat bilaterally * Possible FNA Lung Bx, no Lumbar Puncture per neurology, and questionable NEVAEH 2). Hx Elevated Troponin: likely secondary to episode of V Tach. Cardiac Cath performed by Dr. Pryor 01/27/17 showed clean coronaries. Therapeutic Lovenox was discontinued. Patient is currently on telemetry. Amiodarone 200mg PO bid 3). Hyponatremia: Monitor 4). Hx Bacteremia: repeat cultures have been negative to date. Latest Blood cultures from 02/13/17 show no growth after 5 days and from 02/12/17 no growth for 5 days Blood cultures 02/19/17: no growth 24 hours, Urine culture (02/19/17): no growth, Procalcitonin (02/19/17): 0.58 5). Hx of TB Prophylaxis: he was on INH upon admission but currently not on anything given transaminitis. Sputum x [address] Chest 01/26/17 shows no change when compared to 01/20/17 (please see full reports). 6). Hx Diffuse Rash: resolved 7). Hx Pancreatic Lesion: F/U CT Abdomen in 6 months; GI seen during hospitalization. 8). 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 Aspirin 9). Hx Constipation: resolved 10). Anemia likely secondary to Chronic Disease: stable 11). Hx Hypothyroidism: levothyroxine 88mcg PO q AM; f/u thyroid studies; thyroid US unremarkable 12). Hx Vertigo: resolved and was likely secondary to the Minocycline that patient was on at the time of admission and once discontinued, this issue resolved and has not recurred 13). Hx Diarrhea: resolved 14). Hx Bilateral Lower Leg Edema: duplex are negative, much improved and now mild non-pitting edema involving the ankles 15). Hx Elevated LFTs: monitor; hepatitis negative 16). History of hypothyroidism. c/w Synthroid 88mcg PO AM, TSH: 9.9 on 01/26/17, repeat thyroid panel: TSH: 7.32, Free t4: 1.51, Total T3: 0.584, T3 3rd generation 7.32, consult: endocrinology
--- NOTE | 2017-02-21 00:15 | CP.PCM.PN ---
Addendum entered and electronically signed by Loan Ornelas DO, DO 12:38: Discussed with Dr. Calzada. Will switch antibiotics to azactam 2g IV q8h. Ordered induced sputum. Repeat blood cultures negative 24h. Patient afebrile. Original Note: <RocioyoselinKadi L. - Last Filed: 02/21/17 00:13> Subjective - Date & Time of Evaluation Date of Evaluation: 02/21/17 Time of Evaluation: 07:00 - Subjective Subjective: PGY1- Medicine Note- Dr. Mccartney's Service Patient seen and examined at bedside. Patient doing well today with no new complaints at this time. Patient says left knee pain has improved. Patient has some left shoulder pain which he says goes away with motrin. Pt denies shortness of breath, chest pain, abdominal pain, nausea, vomiting, constipation , or diarrhea. Objective - Vital Signs/Intake and Output Vital Signs (last 24 hours): Temp Pulse Resp BP Pulse Ox 98 F 76 20 117/57 L 99 02/20/17 15:45 02/20/17 15:45 02/20/17 15:45 02/20/17 15:45 02/20/17 15:45 Intake and Output: 02/20/17 02/21/17 18:59 06:59 Intake Total 1000 Balance 1000 - Medications Medications: Current Medications Acetaminophen (Tylenol 325mg Tab) 650 mg PO Q6 PRN PRN Reason: Fever >100.4 F Last Admin: 02/15/17 10:17 Dose: 650 mg Amiodarone HCl (Cordarone) 200 mg PO BID [facility] Last Admin: 02/20/17 18:27 Dose: 200 mg Guaifenesin (Mucinex La) 600 mg PO BID [facility] Last Admin: 02/20/17 18:27 Dose: 600 mg Cefepime HCl (Maxipime Iv 2 Gm Premix) 2 gm in 100 mls @ 200 mls/hr IVPB Q8H [facility] Stop: 02/24/17 19:01 Last Admin: 02/20/17 18:27 Dose: 200 mls/hr Ibuprofen (Motrin Tab) 600 mg PO TID PRN PRN Reason: fever Last Admin: 02/20/17 22:58 Dose: 600 mg Ipratropium [place] (Atrovent Hfa) 2 puff IH RQ6 PRN PRN Reason: Shortness of Breath Lactic Acid (Lac-Hydrin 12% Lotion (225 G)) 225 gm EXT Q1H PRN PRN Reason: Dry skin Last Admin: 02/04/17 18:34 Dose: 1 applic Levothyroxine Sodium (Synthroid) 112 mcg PO DAILY@0630 [facility] Last Admin: 02/20/17 05:41 Dose: 112 mcg Ondansetron HCl (Zofran Inj) 4 mg IVP Q6H PRN PRN Reason: nausea Last Admin: 02/14/17 18:46 Dose: 4 mg Promethazine HCl/Codeine (Phenergan/Codeine Oral Syrup) 5 ml PO Q4 PRN PRN Reason: Cough Last Admin: 02/14/17 18:15 Dose: 5 ml Saccharomyces Boulardii (Florastor) 250 mg PO BID [facility] Last Admin: 02/20/17 18:27 Dose: 250 mg Tramadol HCl (Ultram) 25 mg PO BID PRN PRN Reason: Pain, moderate (4-7) Last Admin: 02/19/17 18:11 Dose: 25 mg - Labs Labs: 02/20/17 07:04 02/20/17 07:04 PT 13.2 SECONDS (9.7-12.2) H 01/20/17 19:37 INR 1.2 01/20/17 19:37 APTT 32 SECONDS (21-34) 01/20/17 19:37 - Constitutional Appears: Well, Non-toxic, No Acute Distress - Head Exam Head Exam: ATRAUMATIC, NORMAL INSPECTION, NORMOCEPHALIC - Eye Exam Eye Exam: EOMI, Normal appearance, PERRL - ENT Exam ENT Exam: Mucous Membranes Moist - Neck Exam Neck Exam: Full ROM, Normal Inspection. absent: Lymphadenopathy - Respiratory Exam Respiratory Exam: Clear to Ausculation Bilateral, NORMAL BREATHING PATTERN. absent: Rales, Rhonchi, Wheezes, Respiratory Distress, Stridor - Cardiovascular Exam Cardiovascular Exam: REGULAR RHYTHM, RRR. absent: Gallop, Rubs, Murmur - GI/Abdominal Exam GI & Abdominal Exam: Soft, Normal Bowel Sounds - Extremities Exam Extremities Exam: Full ROM, Normal Inspection. absent: Pedal Edema - Neurological Exam Neurological Exam: Alert, Awake, Oriented x3 - Psychiatric Exam Psychiatric exam: Normal Affect, Normal Mood - Skin Skin Exam: Intact, Normal Color, Warm Assessment and Plan - Assessment and Plan (Free Text) Assessment: Leukocytosis * Bronch - Marcella and Coag negative staph from Bronchial washing * Blood culture - 02/12 - negative x3 days * Repeat blood culture 02/13 - negative x 3 days * Urine Culture - 02/12 - negative * Sputum culture - 02/12 - Hafnia alvei, sensitive to Aztreonam * Previous Sputum Culture - Raoultella Planticola, Enterobacter Cloacae * Abx started as per Dr. Calzada, Cefepime 2 gm IV q8h * MRI Thoracic and Cervical Spine 02/12/17 did not reveal any abscesses but did now show abnormal signal on the vertebrae suspicious for hematologic abnormality * Gallium scan part 1 on 02/15 and part 2 on 02/16 after magnesium citrate prep - Mild patchy increased radiotracer uptake at the lower lung lobes more on the right (Nonspecific and may represent infectious or inflammatory pneumonitis). Diffuse linear/ tubular shaped increased radiotracer uptake at the left abdomen suspicious for uptake in the left colon. Correlate clinically for colitis. * Abdominal pain (02/18) * Repeat CT abd/pelvis: Bibasal or consolidation. Small bulla/bleb in the right lower lobe. No change. Right renal cyst with a calcification noted in the wall of the cyst. No stones are seen in the left kidney. Small hiatal hernia. Very small pleural effusions bilaterally. Small inguinal hernias containing fat bilaterally. * lipase - 159 * amylase - 103 * f/u stool C. diff, serology negative * IR consult for FNA lung bx (held DVT PPX) * Neurology consult ([facility]) does not recommend LP at this time due to lack of neuro symptoms * Procal: 0.58 * BC - No growth after 24 hours * f/u UC Myalgia * New onset b/l upper extremity pain when he flexes the arms, more on the right than the left assoc with headache * significantly decreased muscle strength bilaterally in the upper extremity * Last head CT/Brain MRI was unremarkable * MRI of the spine - No epidural abscess. Bone marrow signaling abnormal. Consider hematopoietic process * Total CK - 50 * ESR - 134 * CRP - >15 * LDH - 719 Right knee pain and leg pain * knee XR - arthritis * f/u venous duplex RLE Fever * Heme ([place]) - * Bone Marrow Bx - no abnormal myeloid maturation or increased blasts, no lymphoproliferative disorder or plasma cell dyscrasia (on first sample); tiny normocellular marrow particle showing trilineage hematopoesis without evidence of acute leukemia, metastatic neoplasm, plplasma cell neoplasm, or lymphoma; however sample was suboptimal containing mostly clot and very little marrow sample (on second sample) * Anerobic culture negative * Autoimmune Workup - F/U * dsDNA - <1 * Anti-Montelongo - <1 * CHAVA - 1:160, Speckled H, + ANA6 * C-ANCA - negative * P-ANCA - negative * MPO Ab - <1 * PR3 - <1 * Aspergillus - negative * Afebrile since Tmax 102 on 02/14 * Abx cont per Dr. Zheng greenfield. History of hypothyroidism * Synthroid 88mcg PO daily * TSH 9.9 on 01/26 * Repeat thyroid panel showed TSH 7.32, free T4 1.51, Total T3 0.584, and T3 3rd Gen 7.32 on 02/15 * Thyroid ultrasound unremarkable * Consulted Endocrinology (02/17) (Dr. Mccormick) - recs appreciated Vtach * Stable * Patient Had Rapid called on 01/26 for Vtach - was asx * Cath on 01/27 - Normal coronaries, normal EF by echo * Started on Metoprolol 25 Q6H * Echo - EF 65-70 * Stopped therapeutic Lovenox * 01/30 Another episode of Asx Vtach (13 beats), Cards ([facility]) started Cordarone 200mg PO BID Hx of TB PPX * On INH at admission, no longer on anything * Sputum x 3 negative * Repeat CT Chest 01/26/17 shows no change when compared to 01/20/17 Hx of hyponatremia * resolved * monitor Hx pancreatic lesion * F/u CT abdomen in 6 mon Superficial Thrombophlebitis * Right Cephalic Vein Thrombosis as per UE Duplex. Aspirin Hx Elevated LFTs * resolving <Tanika Mccartney V - Last Filed: 02/24/17 17:02> Objective - Vital Signs/Intake and Output Vital Signs (last 24 hours): Temp Pulse Resp BP Pulse Ox 97.7 F 68 18 119/72 98 02/21/17 07:00 02/21/17 07:45 02/21/17 07:00 02/21/17 07:00 02/21/17 07:00 - Medications Medications: Current Medications Acetaminophen (Tylenol 325mg Tab) 650 mg PO Q6 PRN PRN Reason: Fever >100.4 F Last Admin: 02/15/17 10:17 Dose: 650 mg Amiodarone HCl (Cordarone) 200 mg PO BID [facility] Last Admin: 02/21/17 10:27 Dose: 200 mg Enoxaparin Sodium (Lovenox) 40 mg SC DAILY [facility] Last Admin: 02/21/17 10:34 Dose: 40 mg Guaifenesin (Mucinex La) 600 mg PO BID [facility] Last Admin: 02/21/17 10:29 Dose: 600 mg Aztreonam 2 gm/ Sodium (Chloride) 100 mls @ 200 mls/hr IVPB Q8H [facility] Ibuprofen (Motrin Tab) 600 mg PO TID PRN PRN Reason: fever Last Admin: 02/21/17 09:07 Dose: 600 mg Ipratropium [place] (Atrovent Hfa) 2 puff IH RQ6 PRN PRN Reason: Shortness of Breath Lactic Acid (Lac-Hydrin 12% Lotion (225 G)) 225 gm EXT Q1H PRN PRN Reason: Dry skin Last Admin: 02/04/17 18:34 Dose: 1 applic Levothyroxine Sodium (Synthroid) 112 mcg PO DAILY@0630 [facility] Last Admin: 02/21/17 05:42 Dose: 112 mcg Ondansetron HCl (Zofran Inj) 4 mg IVP Q6H PRN PRN Reason: nausea Last Admin: 02/14/17 18:46 Dose: 4 mg Promethazine HCl/Codeine (Phenergan/Codeine Oral Syrup) 5 ml PO Q4 PRN PRN Reason: Cough Last Admin: 02/14/17 18:15 Dose: 5 ml Tramadol HCl (Ultram) 25 mg PO BID PRN PRN Reason: Pain, moderate (4-7) Last Admin: 02/19/17 18:11 Dose: 25 mg - Labs Labs: 02/21/17 07:59 02/21/17 07:59 PT 13.2 SECONDS (9.7-12.2) H 01/20/17 19:37 INR 1.2 01/20/17 19:37 APTT 32 SECONDS (21-34) 01/20/17 19:37 Attending/Attestation - Attestation I have personally seen and examined this patient.: Yes I have fully participated in the care of the patient.: Yes I have reviewed all pertinent clinical information, including history, physical exam and plan: Yes Notes (Text): This is late computer entry for 02/21/17 Patient seen, examined, and case discussed with day-time resident. Patient seen this morning during rounds. Patient reports pain over left shoulder. Patient able to adduct, abduct, and lift arm to his head. Patient has point tendernes in the AC joint. Patient denies headache, denies chills, denies chest pain, denies shortness of breathe, denies cough, denies abdominal pain, denies nausea, denies vomitting, and reports his bowel movements is normal. Patient ordered for: * B/L Upper and lower extremities venous duplex: r/o dvt in light of leukocytosis * Repeat sputum culture * Order for lupus antibodies * Order for C. Dif toxin though patient has no diarrhea * Order for repeat blood cultures and urine culture * Per ID, start Aztreonam IV Patient reports he lives in an apartment with 2 other people. Patient does not share with his 2 flatmates. Patient reports he is not sexually active for the past 4 years. Patient denies living in area of large trees or infested bugs. Patient denies recent travel. Patient has be afebrile since 02/14/17. Patient has benign abdominal exam. Patient came in early in admission with b/l consolidations and associated bronchiectasis. Will follow-up with Interventional Radiology, for FNA Lung Bx given it is a holiday weekend. May not get done until Thursday. Assessment and Plan: 1). Leukocytosis; Fever of Unknown Origin * Pulmonary (Dr. Mckeon) on board * Infectious Disease (Dr. Calzada/Dr. Carias) on board * Heme-onc (Dr. Jennifer Alexandre) on board * s/p bronchoscopy/bronchial washing for Thursday01/30/17 and this was performed: culture showed Marcella albicans and Coag Neg Staph and Sputum AFB is negative--- >completed Diflucan 200 mg IV on 02/03/17 and treated through 02/13/17. * CT scan Chest/Abdomen/Pelvis (02/03/17): largely stable findings within the chest; included septa; thickening; persistent bibasilar consolidation bronchiesctasis; lymphadenopathy including mediastinal and axillary lymph nodes ; cervical lymphadenopathy present * Sputum Culture 02/07/17 showed Raoultella planticola and Enterobacter cloacae and patient was on Ceftriaxone from 02/03/17 through 02/13/17. * S/P Bone Marrow Bx 02/10/17 and Bone Marrow Cultures are currently negative--> . F/U Bone Marrow Bx Pathology * Bone Marrow Bx-no abnormal myeloid maturation or increased blasts, no lymphoproliferative disorder or plasma cell dyscrasia (on first sampl): tiny normocellular marrow particle showing trilinerage hematopoesis without evidence of acute leukemia, metastatic neoplasm, plasma cell neoplasm, or lymphoma; however suboptimal containing mostly clot and very little marrow sample * f/u with heme-onc * Sputum Culture 02/12/17 showed Hafnia alvei-->Aztrenoam 2gm IV Q 8 hours ( restarted since 02/21/17) * Maxipime 2gm IV Q 8 hours (active 02/19/17) * MRI Thoracic and Cervical Spine 02/12/17 did not reveal any abscesses but did now show abnormal signal on the vertebrae suspicious for hematologic abnormality * Patient had Gallium Scan Part #1 on 02/15/17 and Part #2 02/16/17 * Mild patchy increased radiotracer uptake in the lower lobes more on the right (nonspecific and may represent infectious or inflammatory pneumonitis. Diffuse liner/tubular shaped increase radiotracer uptake at the left abdomen suspicious for uptake in the left colon. Correlate clinically for colitis * CT Abdomen/Pelvis w PO contrast (02/18/17): bibasal or consolidation. Small bulla/bleb in right lower lobe. No change. Right renal cyst with a calcification in the wall of the cyst. No stones are seen in the left kidney. Small hiatal hernia. Very small pleural effusions bilaterally. Small inguinal hernia containing fat bilaterally * Possible FNA Lung Bx, no Lumbar Puncture per neurology, and questionable NEVAEH 2). Hx Elevated Troponin: likely secondary to episode of V Tach. Cardiac Cath performed by Dr. Pryor 01/27/17 showed clean coronaries. Therapeutic Lovenox was discontinued. Patient is currently on telemetry. Amiodarone 200mg PO bid 3). Hyponatremia: Monitor 4). Hx Bacteremia: repeat cultures have been negative to date. Latest Blood cultures from 02/13/17 show no growth after 5 days and from 02/12/17 no growth for 5 days Blood cultures 02/19/17: no growth thus far Urine culture (02/19/17): no growth, Procalcitonin (02/19/17): 0.58 Blood cultures 02/21/17: pending 5). Hx of TB Prophylaxis: he was on INH upon admission but currently not on anything given transaminitis. Sputum x [address] Chest 01/26/17 shows no change when compared to 01/20/17 (please see full reports). 6). Hx Diffuse Rash: resolved 7). Hx Pancreatic Lesion: F/U CT Abdomen in 6 months; GI seen during hospitalization. 8). 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 Aspirin 9). Hx Constipation: resolved 10). Anemia likely secondary to Chronic Disease: stable 11). Hx Hypothyroidism: levothyroxine 88mcg PO q AM; f/u thyroid studies; thyroid US unremarkable 12). Hx Vertigo: resolved and was likely secondary to the Minocycline that patient was on at the time of admission and once discontinued, this issue resolved and has not recurred 13). Hx Diarrhea: resolved 14). Hx Bilateral Lower Leg Edema: duplex are negative, much improved and now mild non-pitting edema involving the ankles 15). Hx Elevated LFTs: monitor; hepatitis negative 16). History of hypothyroidism. c/w Synthroid 88mcg PO AM, TSH: 9.9 on 01/26/17, repeat thyroid panel: TSH: 7.32, Free t4: 1.51, Total T3: 0.584, T3 3rd generation 7.32, consult: endocrinology 17) Prophylactic measure: Lovenox 40mg subqdaily
[2017-02-21] MEDS: Cefepime IV 2 gm in Dextrose 2 GM/100 ML BAG IVPB SCH ×2 (03:23→10:28)
[2017-02-21] MEDS: Levothyroxine 112 MCG TAB PO SCH (05:42)
[2017-02-21 08:09] LABS: BASO % 0.1 % (0.0-2.0); EOS # 0.7 K/uL (0.0-0.7); EOS % 2.2 % (0.0-4.0); HEMATOCRIT 31.9 % (35.0-51.0); LYMPH # 2.6 K/uL (1.0-4.3); LYMPH % 7.9 % (20.0-40.0); MEAN CELL VOLUME 84.5 fL (80.0-94.0); MEAN CORPUSCULAR HEMOGLOBIN 27.3 pg (27.0-31.0); MEAN CORPUSCULAR HGB CONC 32.4 g/dL (33.0-37.0); MEAN PLATELET VOLUME 7.9 fL (7.2-11.7); MONO # 0.5 K/uL (0.0-0.8); MONO % 1.6 % (0.0-10.0); PLATELET COUNT 614 K/uL (130-400)
[2017-02-21 08:17] LABS: ALB/GLOB RATIO 0.5 (1.0-2.1); ALKALINE PHOSPHATASE 164 U/L (38-126); ALT/SGPT 57 U/L (21-72); AST/SGOT 48 U/L (17-59); BILIRUBIN,TOTAL 0.4 mg/dL (0.2-1.3); BLOOD UREA NITROGEN 17 mg/dL (9-20); CALCIUM 8.3 mg/dl (8.6-10.4); CARBON DIOXIDE 29 mmol/L (22-30); CHLORIDE 97 mmol/L (98-107); GFR AFRICAN-AMERICAN > 60; GLUCOSE,RANDOM 88 mg/dL (75-110); MAGNESIUM 1.6 mg/dL (1.6-2.3); PHOSPHOROUS 4.1 mg/dL (2.5-4.5); POTASSIUM 4.4 mmol/L (3.6-5.2); SODIUM 134 mmol/L (132-148); TOTAL PROTEIN 8.4 g/dL (6.3-8.3)
[2017-02-21 08:30] LABS: WHITE BLOOD COUNT 32.3 K/uL (4.8-10.8)
[2017-02-21] MEDS: Saccharomyces Boulardi 250 mg Cap PO SCH (10:27)
[2017-02-21] MEDS: guaiFENesin 600 mg ER Tab PO SCH ×2 (10:29→18:07)
[2017-02-21] MEDS: Enoxaparin 40 mg Syringe SC SCH (10:34)
[2017-02-21 12:11] LABS: EOSINOPHIL 2 % (0-4); NEUTROPHIL 80 % (50-75); TOTAL CELLS COUNTED 100
[2017-02-21] MEDS: Aztreonam 2 GM in Sodium Chloride 0.9% 100 ML IVPB SCH ×2 (14:44→21:46)
--- NOTE | 2017-02-21 17:29 | RAD ---
PROCEDURE: Radiographs of the Left Shoulder HISTORY: pain COMPARISON: No prior. FINDINGS: BONES: Normal. No fracture. JOINTS: Normal. Glenohumeral and acromioclavicular joints preserved. No osteoarthritis. SOFT TISSUES: Small calcifications seen the posterior left shoulder soft tissues potentially reflecting calcific tendinosis. OTHER FINDINGS: None. IMPRESSION: No acute fracture or dislocation or subluxation. Possible calcific tendinosis. MRI may be useful for follow-up.
[2017-02-22] MEDS: Aztreonam 2 GM in Sodium Chloride 0.9% 100 ML IVPB SCH ×3 (05:19→21:22)
[2017-02-22] MEDS: Levothyroxine 112 MCG TAB PO SCH (05:31)
[2017-02-22 08:29] LABS: BASO % 0.1 % (0.0-2.0); EOS # 0.6 K/uL (0.0-0.7); EOS % 2.1 % (0.0-4.0); HEMATOCRIT 28.3 % (35.0-51.0); LYMPH # 1.9 K/uL (1.0-4.3); LYMPH % 6.9 % (20.0-40.0); MEAN CELL VOLUME 83.7 fL (80.0-94.0); MEAN CORPUSCULAR HEMOGLOBIN 27.3 pg (27.0-31.0); MEAN CORPUSCULAR HGB CONC 32.6 g/dL (33.0-37.0); MONO # 0.4 K/uL (0.0-0.8); MONO % 1.4 % (0.0-10.0); PLATELET COUNT 564 K/uL (130-400); RED CELL DISTRIBUTION WIDTH 19.5 % (11.5-14.5); WHITE BLOOD COUNT 28.2 K/uL (4.8-10.8)
[2017-02-22 08:56] LABS: ALB/GLOB RATIO 0.5 (1.0-2.1); ALKALINE PHOSPHATASE 123 U/L (38-126); ALT/SGPT 45 U/L (21-72); AST/SGOT 35 U/L (17-59); BILIRUBIN,TOTAL 0.2 mg/dL (0.2-1.3); BLOOD UREA NITROGEN 17 mg/dL (9-20); CARBON DIOXIDE 26 mmol/L (22-30); CHLORIDE 99 mmol/L (98-107); GFR AFRICAN-AMERICAN > 60; GLUCOSE,RANDOM 97 mg/dL (75-110); MAGNESIUM 1.6 mg/dL (1.6-2.3); PHOSPHOROUS 3.7 mg/dL (2.5-4.5); POTASSIUM 3.9 mmol/L (3.6-5.2); SODIUM 131 mmol/L (132-148); TOTAL PROTEIN 7.1 g/dL (6.3-8.3)
[2017-02-22 09:42] LABS: EOSINOPHIL 3 % (0-4); NEUTROPHIL 87 % (50-75); TOTAL CELLS COUNTED 100
[2017-02-22 09:44] LABS: LARGE PLATELETS PRESENT; PLATELET CLUMPS PRESENT
[2017-02-22] MEDS: Enoxaparin 40 mg Syringe SC SCH (09:59)
[2017-02-22] MEDS: guaiFENesin 600 mg ER Tab PO SCH ×2 (09:59→18:16)
--- NOTE | 2017-02-22 15:03 | CP.PCM.PN ---
<Loan Ornelas DO - Last Filed: 02/22/17 14:58> Subjective - Date & Time of Evaluation Date of Evaluation: 02/22/17 Time of Evaluation: 08:40 - Subjective Subjective: Medicine progress note for Dr. Mccartney Patient seen and examined. Patient resting comfortably, denies fever and chills. Patient states he is frustrated that he does not have an answer yet as to what is wrong with him. Objective - Vital Signs/Intake and Output Vital Signs (last 24 hours): Temp Pulse Resp BP Pulse Ox 98 F 68 18 114/56 L 98 02/22/17 09:05 02/22/17 09:05 02/22/17 09:05 02/22/17 09:05 02/22/17 09:05 Intake and Output: 02/22/17 02/22/17 06:59 18:59 Output Total 450 Balance -450 - Medications Medications: Current Medications Acetaminophen (Tylenol 325mg Tab) 650 mg PO Q6 PRN PRN Reason: Fever >100.4 F Last Admin: 02/15/17 10:17 Dose: 650 mg Amiodarone HCl (Cordarone) 200 mg PO BID [facility] Last Admin: 02/22/17 09:59 Dose: 200 mg Enoxaparin Sodium (Lovenox) 40 mg SC DAILY [facility] Last Admin: 02/22/17 09:59 Dose: 40 mg Guaifenesin (Mucinex La) 600 mg PO BID [facility] Last Admin: 02/22/17 09:59 Dose: 600 mg Aztreonam 2 gm/ Sodium (Chloride) 100 mls @ 200 mls/hr IVPB Q8H [facility] Last Admin: 02/22/17 13:40 Dose: 200 mls/hr Ibuprofen (Motrin Tab) 600 mg PO TID PRN PRN Reason: fever Last Admin: 02/22/17 00:35 Dose: 600 mg Ipratropium [place] (Atrovent Hfa) 2 puff IH RQ6 PRN PRN Reason: Shortness of Breath Lactic Acid (Lac-Hydrin 12% Lotion (225 G)) 225 gm EXT Q1H PRN PRN Reason: Dry skin Last Admin: 02/04/17 18:34 Dose: 1 applic Levothyroxine Sodium (Synthroid) 112 mcg PO DAILY@0630 [facility] Last Admin: 02/22/17 05:31 Dose: 112 mcg Ondansetron HCl (Zofran Inj) 4 mg IVP Q6H PRN PRN Reason: nausea Last Admin: 02/14/17 18:46 Dose: 4 mg Promethazine HCl/Codeine (Phenergan/Codeine Oral Syrup) 5 ml PO Q4 PRN PRN Reason: Cough Last Admin: 02/14/17 18:15 Dose: 5 ml Tramadol HCl (Ultram) 25 mg PO BID PRN PRN Reason: Pain, moderate (4-7) Last Admin: 02/19/17 18:11 Dose: 25 mg - Labs Labs: 02/22/17 08:21 02/22/17 08:21 PT 13.2 SECONDS (9.7-12.2) H 01/20/17 19:37 INR 1.2 01/20/17 19:37 APTT 32 SECONDS (21-34) 01/20/17 19:37 - Constitutional Appears: Non-toxic, No Acute Distress - Head Exam Head Exam: ATRAUMATIC, NORMOCEPHALIC - Eye Exam Eye Exam: EOMI - ENT Exam ENT Exam: Mucous Membranes Moist - Respiratory Exam Respiratory Exam: Clear to Ausculation Bilateral, NORMAL BREATHING PATTERN - Cardiovascular Exam Cardiovascular Exam: +S1, +S2 - GI/Abdominal Exam GI & Abdominal Exam: Soft, Normal Bowel Sounds. absent: Tenderness - Extremities Exam Extremities Exam: Normal Inspection. absent: Calf Tenderness - Neurological Exam Neurological Exam: Alert, Awake - Psychiatric Exam Psychiatric exam: Normal Affect - Skin Skin Exam: Dry, Warm Assessment and Plan - Assessment and Plan (Free Text) Assessment: Leukocytosis * Bronch - Aristeo and Coag negative staph from Bronchial washing, mycobacterium culture negative * blood culture 02/19/17: negative 48 hours * 02/21/17: switched antibiotics from cefepime to aztreonam * 02/22/17: WBC count down trending * Blood culture - 02/12 - negative x3 days * Repeat blood culture 02/13 - negative x 3 days * Urine Culture - 02/12 - negative * Sputum culture - 02/12 - Hafnia alvei, sensitive to Aztreonam * Previous Sputum Culture - Raoultella Planticola, Enterobacter Cloacae * Abx started as per Dr. Calzada, Cefepime 2 gm IV q8h * MRI Thoracic and Cervical Spine 02/12/17 did not reveal any abscesses but did now show abnormal signal on the vertebrae suspicious for hematologic abnormality * Gallium scan part 1 on 02/15 and part 2 on 02/16 after magnesium citrate prep - Mild patchy increased radiotracer uptake at the lower lung lobes more on the right (Nonspecific and may represent infectious or inflammatory pneumonitis). Diffuse linear/ tubular shaped increased radiotracer uptake at the left abdomen suspicious for uptake in the left colon. Correlate clinically for colitis. * Abdominal pain (02/18) * Repeat CT abd/pelvis: Bibasal or consolidation. Small bulla/bleb in the right lower lobe. No change. Right renal cyst with a calcification noted in the wall of the cyst. No stones are seen in the left kidney. Small hiatal hernia. Very small pleural effusions bilaterally. Small inguinal hernias containing fat bilaterally. * lipase - 159 * amylase - 103 * f/u stool C. diff, serology negative * IR consult for FNA lung bx (held DVT PPX) * Neurology consult ([facility]) does not recommend LP at this time due to lack of neuro symptoms * Procal: 0.58 * urine culture negative Myalgia * New onset b/l upper extremity pain when he flexes the arms, more on the right than the left assoc with headache * significantly decreased muscle strength bilaterally in the upper extremity * Last head CT/Brain MRI was unremarkable * MRI of the spine - No epidural abscess. Bone marrow signaling abnormal. Consider hematopoietic process * Total CK - 50 * ESR - 134 * CRP - >15 * LDH - 719 Right knee pain and leg pain * knee XR - arthritis * f/u venous duplex RLE Fever * Heme ([facility]) - * Bone Marrow Bx - no abnormal myeloid maturation or increased blasts, no lymphoproliferative disorder or plasma cell dyscrasia (on first sample); tiny normocellular marrow particle showing trilineage hematopoesis without evidence of acute leukemia, metastatic neoplasm, plplasma cell neoplasm, or lymphoma; however sample was suboptimal containing mostly clot and very little marrow sample (on second sample) * Anerobic culture negative * Autoimmune Workup - F/U * dsDNA - <1 * Anti-Montelongo - <1 * CHAVA - 1:160, Speckled H, + ANA6 * C-ANCA - negative * P-ANCA - negative * MPO Ab - <1 * PR3 - <1 * Aspergillus - negative * Afebrile since Tmax 102 on 02/14 * Abx cont per Dr. Zheng greenfield. History of hypothyroidism * Synthroid 88mcg PO daily * TSH 9.9 on 01/26 * Repeat thyroid panel showed TSH 7.32, free T4 1.51, Total T3 0.584, and T3 3rd Gen 7.32 on 02/15 * Thyroid ultrasound unremarkable * Consulted Endocrinology (02/17) (Dr. Mccormick) - recs appreciated Vtach * Stable * Patient Had Rapid called on 01/26 for Vtach - was asx * Cath on 01/27 - Normal coronaries, normal EF by echo * Started on Metoprolol 25 Q6H * Echo - EF 65-70 * Stopped therapeutic Lovenox * 01/30 Another episode of Asx Vtach (13 beats), Cards ([facility]) started Cordarone 200mg PO BID Hx of TB PPX * On INH at admission, no longer on anything * Sputum x 3 negative * Repeat CT Chest 01/26/17 shows no change when compared to 01/20/17 Hx of hyponatremia * resolved * monitor Hx pancreatic lesion * F/u CT abdomen in 6 mon Superficial Thrombophlebitis * Right Cephalic Vein Thrombosis as per UE Duplex. Aspirin Hx Elevated LFTs * resolving <Tanika Mccartney V - Last Filed: 02/24/17 17:18> Objective - Vital Signs/Intake and Output Vital Signs (last 24 hours): Temp Pulse Resp BP Pulse Ox 98.5 F 71 20 108/51 L 99 02/24/17 08:00 02/24/17 08:00 02/24/17 08:00 02/24/17 08:00 02/24/17 08:00 Intake and Output: 02/24/17 02/24/17 06:59 18:59 Intake Total 340 600 Output Total 750 Balance -410 600 - Medications Medications: Current Medications Acetaminophen (Tylenol 325mg Tab) 650 mg PO Q6 PRN PRN Reason: Fever >100.4 F Last Admin: 02/15/17 10:17 Dose: 650 mg Amiodarone HCl (Cordarone) 200 mg PO BID [facility] Last Admin: 02/24/17 10:48 Dose: 200 mg Enoxaparin Sodium (Lovenox) 40 mg SC DAILY [facility] Last Admin: 02/24/17 10:48 Dose: 40 mg Guaifenesin (Mucinex La) 600 mg PO BID [facility] Last Admin: 02/24/17 10:48 Dose: 600 mg Aztreonam 2 gm/ Sodium (Chloride) 100 mls @ 200 mls/hr IVPB Q8H [facility] Last Admin: 02/24/17 12:33 Dose: 200 mls/hr Ibuprofen (Motrin Tab) 600 mg PO TID PRN PRN Reason: fever Last Admin: 02/23/17 22:10 Dose: 600 mg Ipratropium [place] (Atrovent Hfa) 2 puff IH RQ6 PRN PRN Reason: Shortness of Breath Lactic Acid (Lac-Hydrin 12% Lotion (225 G)) 225 gm EXT Q1H PRN PRN Reason: Dry skin Last Admin: 02/04/17 18:34 Dose: 1 applic Levothyroxine Sodium (Synthroid) 112 mcg PO DAILY@0630 [facility] Last Admin: 02/24/17 06:06 Dose: 112 mcg Ondansetron HCl (Zofran Inj) 4 mg IVP Q6H PRN PRN Reason: nausea Last Admin: 02/14/17 18:46 Dose: 4 mg Promethazine HCl/Codeine (Phenergan/Codeine Oral Syrup) 5 ml PO Q4 PRN PRN Reason: Cough Last Admin: 02/14/17 18:15 Dose: 5 ml Tramadol HCl (Ultram) 25 mg PO BID PRN PRN Reason: Pain, moderate (4-7) Last Admin: 02/19/17 18:11 Dose: 25 mg - Labs Labs: 02/24/17 08:00 02/24/17 08:00 PT 13.2 SECONDS (9.7-12.2) H 01/20/17 19:37 INR 1.2 01/20/17 19:37 APTT 32 SECONDS (21-34) 01/20/17 19:37 Attending/Attestation - Attestation I have personally seen and examined this patient.: Yes I have fully participated in the care of the patient.: Yes I have reviewed all pertinent clinical information, including history, physical exam and plan: Yes Notes (Text): This is late computer entry for 02/22/17. Patient seen, examined, and case discussed with day-time resident. Patient seen this morning during rounds. Patient reports pain over left shoulder is less. Discussed with patient he has tendionitis. Cannot give steroid at this time given persistent leukocytosis. White count minimally improving. Patient ordered for: * B/L Upper and lower extremities venous duplex: r/o dvt in light of leukocytosis-->pending (holiday weekend) * Repeat sputum culture * Order for lupus antibodies--f/u * C. Dif toxin: negative * f/u 02/19 and 02/21 blood cultures and urine culture Patient has be afebrile since 02/14/17. Patient has benign abdominal exam. Patient came in early in admission with b/l consolidations and associated bronchiectasis. Will follow-up with Interventional Radiology, for FNA Lung Bx given it is a holiday weekend. May not get done until Thursday. Assessment and Plan: 1). Leukocytosis; Fever of Unknown Origin * Pulmonary (Dr. Mckeon) on board * Infectious Disease (Dr. Calzada/Dr. Carias) on board * Heme-onc (Dr. Jennifer Alexandre) on board * s/p bronchoscopy/bronchial washing for Thursday01/30/17 and this was performed: culture showed Aristeo albicans and Coag Neg Staph and Sputum AFB is negative--- >completed Diflucan 200 mg IV on 02/03/17 and treated through 02/13/17. * CT scan Chest/Abdomen/Pelvis (02/03/17): largely stable findings within the chest; included septa; thickening; persistent bibasilar consolidation bronchiesctasis; lymphadenopathy including mediastinal and axillary lymph nodes ; cervical lymphadenopathy present * Sputum Culture 02/07/17 showed Raoultella planticola and Enterobacter cloacae and patient was on Ceftriaxone from 02/03/17 through 02/13/17. * S/P Bone Marrow Bx 02/10/17 and Bone Marrow Cultures are currently negative--> . F/U Bone Marrow Bx Pathology * Bone Marrow Bx-no abnormal myeloid maturation or increased blasts, no lymphoproliferative disorder or plasma cell dyscrasia (on first sampl): tiny normocellular marrow particle showing trilinerage hematopoesis without evidence of acute leukemia, metastatic neoplasm, plasma cell neoplasm, or lymphoma; however suboptimal containing mostly clot and very little marrow sample * f/u with heme-onc * Sputum Culture 02/12/17 showed Hafnia alvei-->Aztrenoam 2gm IV Q 8 hours ( restarted since 02/21/17) * D/C Maxipime 2gm IV Q 8 hours (active 02/19/17) * MRI Thoracic and Cervical Spine 02/12/17 did not reveal any abscesses but did now show abnormal signal on the vertebrae suspicious for hematologic abnormality * Patient had Gallium Scan Part #1 on 02/15/17 and Part #2 02/16/17 * Mild patchy increased radiotracer uptake in the lower lobes more on the right (nonspecific and may represent infectious or inflammatory pneumonitis. Diffuse liner/tubular shaped increase radiotracer uptake at the left abdomen suspicious for uptake in the left colon. Correlate clinically for colitis * CT Abdomen/Pelvis w PO contrast (02/18/17): bibasal or consolidation. Small bulla/bleb in right lower lobe. No change. Right renal cyst with a calcification in the wall of the cyst. No stones are seen in the left kidney. Small hiatal hernia. Very small pleural effusions bilaterally. Small inguinal hernia containing fat bilaterally * Possible FNA Lung Bx, no Lumbar Puncture per neurology, and questionable NEVAEH? Microbiology: * Aspergillus: negative * Q fever: negative * Hepatitis Panel: negative * Blood parasites: negative * Hepatitis panel: negative * Coccidiodes F-Ag Ab/TP-Ag Ab: negative * C. difficle toxin: negative X7 * Quantaferon:L indeterminate * S. pneumoniae Ag: negative * Group B Strep Antigen: not required * N. meningitis: not required * Urine legionella: negative * HIV: negative X3 * Brucella: negative * RPR: nonreactive Positive Microbiology--which have all been treated during hospitalization. 01/01: Blood: Coag neg Staph (1/2) bottles; 01/02 Blood cultures negative X2 5 days 01/03; 01/06; 01/07 Mycobacterial Culture: no fast acid bacilli identified; no Mycobacterium isolated for 6 weeks X3 Bone Marrow: no acid fast isolated 01/26: Sputum: Yeast 01/30: Bronchial washings: aristeo albicans and coag negative Stap 02/07: Sputum: Raoultella Planticola and Enterobacter Cloacae 02/10: Bone Marrow Staphyloccous Sp Coag 02/12: Sputum: Hafnia Alvei Latest 02/19: Blood and urine are negative 02/21: Blood and urine f/u Immunology: * CHAVA: positive; 1:160, speckled, ANCA: negative, Proteinase 3: <1.0, Myeloperoxidase <1.0, Montelongo Ab <1.0 UDS: negative 2). Hx Elevated Troponin: likely secondary to episode of V Tach. Cardiac Cath performed by Dr. Pryor 01/27/17 showed clean coronaries. Therapeutic Lovenox was discontinued. Patient is currently on telemetry. Amiodarone 200mg PO bid 3). Hyponatremia: Monitor 4). Hx Bacteremia: repeat cultures have been negative to date. Latest Blood cultures from 02/13/17 show no growth after 5 days and from 02/12/17 no growth for 5 days Blood cultures 02/19/17: no growth thus far Urine culture (02/19/17): no growth, Procalcitonin (02/19/17): 0.58 Blood cultures 02/21/17: pending 5). Hx of TB Prophylaxis: he was on INH upon admission but currently not on anything given transaminitis. Sputum x [address] Chest 01/26/17 shows no change when compared to 01/20/17 (please see full reports). 6). Hx Diffuse Rash: resolved 7). Hx Pancreatic Lesion: F/U CT Abdomen in 6 months; GI seen during hospitalization. 8). 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 Aspirin 9). Hx Constipation: resolved 10). Anemia likely secondary to Chronic Disease: stable 11). Hx Hypothyroidism: levothyroxine 88mcg PO q AM; f/u thyroid studies; thyroid US unremarkable 12). Hx Vertigo: resolved and was likely secondary to the Minocycline that patient was on at the time of admission and once discontinued, this issue resolved and has not recurred 13). Hx Diarrhea: resolved 14). Hx Bilateral Lower Leg Edema: duplex are negative, much improved and now mild non-pitting edema involving the ankles 15). Hx Elevated LFTs: monitor; hepatitis negative 16). History of hypothyroidism. c/w Synthroid 88mcg PO AM, TSH: 9.9 on 01/26/17, repeat thyroid panel: TSH: 7.32, Free t4: 1.51, Total T3: 0.584, T3 3rd generation 7.32, consult: endocrinology 17) Prophylactic measure: Lovenox 40mg subqdaily
[2017-02-23] MEDS: Levothyroxine 112 MCG TAB PO SCH (05:38)
[2017-02-23] MEDS: Aztreonam 2 GM in Sodium Chloride 0.9% 100 ML IVPB SCH ×3 (05:40→22:11)
[2017-02-23 07:27] LABS: BASO % 0.2 % (0.0-2.0); EOS # 0.5 K/uL (0.0-0.7); EOS % 1.9 % (0.0-4.0); LYMPH # 2.1 K/uL (1.0-4.3); LYMPH % 7.9 % (20.0-40.0); MEAN CELL VOLUME 83.6 fL (80.0-94.0); MEAN CORPUSCULAR HEMOGLOBIN 27.4 pg (27.0-31.0); MEAN CORPUSCULAR HGB CONC 32.8 g/dL (33.0-37.0); MEAN PLATELET VOLUME 7.9 fL (7.2-11.7); MONO # 0.5 K/uL (0.0-0.8); PLATELET COUNT 577 K/uL (130-400); RED CELL DISTRIBUTION WIDTH 19.1 % (11.5-14.5)
[2017-02-23 07:57] LABS: ALB/GLOB RATIO 0.5 (1.0-2.1); ALKALINE PHOSPHATASE 142 U/L (38-126); ALT/SGPT 44 U/L (21-72); AST/SGOT 41 U/L (17-59); BILIRUBIN,TOTAL 0.3 mg/dL (0.2-1.3); BLOOD UREA NITROGEN 18 mg/dL (9-20); CALCIUM 8.1 mg/dl (8.6-10.4); CARBON DIOXIDE 26 mmol/L (22-30); CHLORIDE 98 mmol/L (98-107); GFR AFRICAN-AMERICAN > 60; GLUCOSE,RANDOM 81 mg/dL (75-110); MAGNESIUM 1.7 mg/dL (1.6-2.3); POTASSIUM 4.2 mmol/L (3.6-5.2); SODIUM 133 mmol/L (132-148); TOTAL PROTEIN 7.9 g/dL (6.3-8.3)
[2017-02-23 08:52] LABS: EOSINOPHIL 1 % (0-4); METAMYELOCYTE 2 % (0-0); MYELOCYTE 1 % (0-0); NEUTROPHIL 87 % (50-75); TOTAL CELLS COUNTED 100
[2017-02-23 08:53] LABS: LARGE PLATELETS PRESENT
[2017-02-23 08:55] LABS: GIANT PLATELETS PRESENT
[2017-02-23] MEDS: guaiFENesin 600 mg ER Tab PO SCH ×2 (10:25→19:14)
[2017-02-23] MEDS: Enoxaparin 40 mg Syringe SC SCH (10:25)
--- NOTE | 2017-02-23 12:17 | CP.PCM.PN ---
<Juan Francisco Gonzales - Last Filed: 02/23/17 13:06> Subjective - Date & Time of Evaluation Date of Evaluation: 02/23/17 Time of Evaluation: 12:16 - Subjective Subjective: PGY1 Note for Dr. Gresham HPI: Patient seen and examined at bedside. Doing well with no complaints at this time. Happy that his fevers have ceased. Complaining of dry skin but has lotion ordered. Told patient we will contact the neurologist and the radiologist tomorrow to see if we can get a Lumbar tap and a FNA of the lung. Objective - Vital Signs/Intake and Output Vital Signs (last 24 hours): Temp Pulse Resp BP Pulse Ox 98.1 F 60 17 111/52 L 99 02/23/17 07:25 02/23/17 07:50 02/23/17 07:25 02/23/17 07:25 02/23/17 07:25 Intake and Output: 02/23/17 02/23/17 06:59 18:59 Intake Total 580 Balance 580 - Medications Medications: Current Medications Acetaminophen (Tylenol 325mg Tab) 650 mg PO Q6 PRN PRN Reason: Fever >100.4 F Last Admin: 02/15/17 10:17 Dose: 650 mg Amiodarone HCl (Cordarone) 200 mg PO BID [facility] Last Admin: 02/23/17 10:25 Dose: 200 mg Enoxaparin Sodium (Lovenox) 40 mg SC DAILY [facility] Last Admin: 02/23/17 10:25 Dose: 40 mg Guaifenesin (Mucinex La) 600 mg PO BID [facility] Last Admin: 02/23/17 10:25 Dose: 600 mg Aztreonam 2 gm/ Sodium (Chloride) 100 mls @ 200 mls/hr IVPB Q8H [facility] Last Admin: 02/23/17 05:40 Dose: 200 mls/hr Ibuprofen (Motrin Tab) 600 mg PO TID PRN PRN Reason: fever Last Admin: 02/23/17 03:44 Dose: 600 mg Ipratropium Sullivan (Atrovent Hfa) 2 puff IH RQ6 PRN PRN Reason: Shortness of Breath Lactic Acid (Lac-Hydrin 12% Lotion (225 G)) 225 gm EXT Q1H PRN PRN Reason: Dry skin Last Admin: 02/04/17 18:34 Dose: 1 applic Levothyroxine Sodium (Synthroid) 112 mcg PO DAILY@0630 MARY ELLEN Last Admin: 02/23/17 05:38 Dose: 112 mcg Ondansetron HCl (Zofran Inj) 4 mg IVP Q6H PRN PRN Reason: nausea Last Admin: 02/14/17 18:46 Dose: 4 mg Promethazine HCl/Codeine (Phenergan/Codeine Oral Syrup) 5 ml PO Q4 PRN PRN Reason: Cough Last Admin: 02/14/17 18:15 Dose: 5 ml Tramadol HCl (Ultram) 25 mg PO BID PRN PRN Reason: Pain, moderate (4-7) Last Admin: 02/19/17 18:11 Dose: 25 mg - Labs Labs: 02/23/17 07:08 02/23/17 07:08 PT 13.2 SECONDS (9.7-12.2) H 01/20/17 19:37 INR 1.2 01/20/17 19:37 APTT 32 SECONDS (21-34) 01/20/17 19:37 - Constitutional Appears: Well, Non-toxic, No Acute Distress - Head Exam Head Exam: ATRAUMATIC, NORMAL INSPECTION, NORMOCEPHALIC - Eye Exam Eye Exam: EOMI - ENT Exam ENT Exam: Mucous Membranes Moist - Neck Exam Neck Exam: Lymphadenopathy - Respiratory Exam Respiratory Exam: Clear to Ausculation Bilateral, NORMAL BREATHING PATTERN. absent: Rales, Rhonchi, Wheezes, Stridor - Cardiovascular Exam Cardiovascular Exam: REGULAR RHYTHM - GI/Abdominal Exam GI & Abdominal Exam: Soft. absent: Distended, Tenderness, Normal Bowel Sounds - Extremities Exam Extremities Exam: absent: Joint Swelling - Neurological Exam Neurological Exam: Alert, Awake, Oriented x3 - Psychiatric Exam Psychiatric exam: Normal Affect, Normal Mood - Skin Skin Exam: Dry, Intact, Normal Color, Warm Assessment and Plan - Assessment and Plan (Free Text) Assessment: Leukocytosis * Bronch - Marcella and Coag negative staph from Bronchial washing, mycobacterium culture negative * blood culture 02/19/17: negative 48 hours * 02/21/17: switched antibiotics from cefepime to aztreonam * 02/22/17: WBC count down trending * Blood culture - 02/12 - negative x3 days * Repeat blood culture 02/13 - negative x 3 days * Urine Culture - 02/12 - negative * Sputum culture - 02/12 - Hafnia alvei, sensitive to Aztreonam * Previous Sputum Culture - Raoultella Planticola, Enterobacter Cloacae * Abx started as per Dr. Calzada, Cefepime 2 gm IV q8h * MRI Thoracic and Cervical Spine 02/12/17 did not reveal any abscesses but did now show abnormal signal on the vertebrae suspicious for hematologic abnormality * Gallium scan part 1 on 02/15 and part 2 on 02/16 after magnesium citrate prep - Mild patchy increased radiotracer uptake at the lower lung lobes more on the right (Nonspecific and may represent infectious or inflammatory pneumonitis). Diffuse linear/ tubular shaped increased radiotracer uptake at the left abdomen suspicious for uptake in the left colon. Correlate clinically for colitis. * Abdominal pain (02/18) * Repeat CT abd/pelvis: Bibasal or consolidation. Small bulla/bleb in the right lower lobe. No change. Right renal cyst with a calcification noted in the wall of the cyst. No stones are seen in the left kidney. Small hiatal hernia. Very small pleural effusions bilaterally. Small inguinal hernias containing fat bilaterally. * lipase - 159 * amylase - 103 * f/u stool C. diff, serology negative * IR consult for FNA lung bx (held DVT PPX) * [facility]rology consult ([facility]) does not recommend LP at this time due to lack of neuro symptoms * Procal: 0.58 * urine culture negative Myalgia * New onset b/l upper extremity pain when he flexes the arms, more on the right than the left assoc with headache * significantly decreased muscle strength bilaterally in the upper extremity * Last head CT/Brain MRI was unremarkable * MRI of the spine - No epidural abscess. Bone marrow signaling abnormal. Consider hematopoietic process * Total CK - 50 * ESR - 134 * CRP - >15 * LDH - 719 Right knee pain and leg pain * knee XR - arthritis * f/u venous duplex RLE Fever * Heme ([place]) - * Bone Marrow Bx - no abnormal myeloid maturation or increased blasts, no lymphoproliferative disorder or plasma cell dyscrasia (on first sample); tiny normocellular marrow particle showing trilineage hematopoesis without evidence of acute leukemia, metastatic neoplasm, plasma cell neoplasm, or lymphoma; however sample was suboptimal containing mostly clot and very little marrow sample (on second sample) * Anerobic culture negative * Autoimmune Workup - F/U * dsDNA - <1 * Anti-Montelongo - <1 * CHAVA - 1:160, Speckled H, + ANA6 * C-ANCA - negative * P-ANCA - negative * MPO Ab - <1 * PR3 - <1 * Aspergillus - negative * Afebrile since Tmax 102 on 02/14 * Abx cont per Dr. Zheng greenfield. History of hypothyroidism * Synthroid 88mcg PO daily * TSH 9.9 on 01/26 * Repeat thyroid panel showed TSH 7.32, free T4 1.51, Total T3 0.584, and T3 3rd Gen 7.32 on 02/15 * Thyroid ultrasound unremarkable * Consulted Endocrinology (02/17) (Dr. Mccormick) - recs appreciated Vtach * Stable * Patient Had Rapid called on 01/26 for Vtach - was asx * Cath on 01/27 - Normal coronaries, normal EF by echo * Started on Metoprolol 25 Q6H * Echo - EF 65-70 * Stopped therapeutic Lovenox * 01/30 Another episode of Asx Vtach (13 beats), Cards ([facility]) started Cordarone 200mg PO BID Hx of TB PPX * On INH at admission, no longer on anything * Sputum x 3 negative * Repeat CT Chest 01/26/17 shows no change when compared to 01/20/17 Hx of hyponatremia * resolved * monitor Hx pancreatic lesion * F/u CT abdomen in 6 mon Superficial Thrombophlebitis * Right Cephalic Vein Thrombosis as per UE Duplex. Aspirin Hx Elevated LFTs * resolving <Ian Gresham - Last Filed: 02/23/17 13:44> Objective - Vital Signs/Intake and Output Vital Signs (last 24 hours): Temp Pulse Resp BP Pulse Ox 98.1 F 60 17 111/52 L 99 02/23/17 07:25 02/23/17 07:50 02/23/17 07:25 02/23/17 07:25 02/23/17 07:25 Intake and Output: 02/23/17 02/23/17 06:59 18:59 Intake Total 580 Balance 580 - Medications Medications: Current Medications Acetaminophen (Tylenol 325mg Tab) 650 mg PO Q6 PRN PRN Reason: Fever >100.4 F Last Admin: 02/15/17 10:17 Dose: 650 mg Amiodarone HCl (Cordarone) 200 mg PO BID [facility] Last Admin: 02/23/17 10:25 Dose: 200 mg Enoxaparin Sodium (Lovenox) 40 mg SC DAILY [facility] Last Admin: 02/23/17 10:25 Dose: 40 mg Guaifenesin (Mucinex La) 600 mg PO BID [facility] Last Admin: 02/23/17 10:25 Dose: 600 mg Aztreonam 2 gm/ Sodium (Chloride) 100 mls @ 200 mls/hr IVPB Q8H [facility] Last Admin: 02/23/17 05:40 Dose: 200 mls/hr Ibuprofen (Motrin Tab) 600 mg PO TID PRN PRN Reason: fever Last Admin: 02/23/17 03:44 Dose: 600 mg Ipratropium Sullivan (Atrovent Hfa) 2 puff IH RQ6 PRN PRN Reason: Shortness of Breath Lactic Acid (Lac-Hydrin 12% Lotion (225 G)) 225 gm EXT Q1H PRN PRN Reason: Dry skin Last Admin: 02/04/17 18:34 Dose: 1 applic Levothyroxine Sodium (Synthroid) 112 mcg PO DAILY@0630 [facility] Last Admin: 02/23/17 05:38 Dose: 112 mcg Ondansetron HCl (Zofran Inj) 4 mg IVP Q6H PRN PRN Reason: nausea Last Admin: 02/14/17 18:46 Dose: 4 mg Promethazine HCl/Codeine (Phenergan/Codeine Oral Syrup) 5 ml PO Q4 PRN PRN Reason: Cough Last Admin: 02/14/17 18:15 Dose: 5 ml Tramadol HCl (Ultram) 25 mg PO BID PRN PRN Reason: Pain, moderate (4-7) Last Admin: 02/19/17 18:11 Dose: 25 mg - Labs Labs: 02/23/17 07:08 02/23/17 07:08 PT 13.2 SECONDS (9.7-12.2) H 01/20/17 19:37 INR 1.2 01/20/17 19:37 APTT 32 SECONDS (21-34) 01/20/17 19:37 Attending/Attestation - Attestation I have personally seen and examined this patient.: Yes I have fully participated in the care of the patient.: Yes I have reviewed all pertinent clinical information, including history, physical exam and plan: Yes Notes (Text): 02/23/17 13:31 Patient was seen and examined with the resident Patient was seen and examined on 02/23/17 at 12:30 PM Exam: General: AAOx3, NAD HEENT: NCA, EOMI, PERRLA, (+) Bilateral Posterior Hostel Parent Lymphadenopathy in the inferior aspects, NO pharyngeal erythema/exudate, Mucous Membranes are moist, Nasal Turbinates are nonedematous/nonerythematous Cardio: NS1 and NS2, NO M/R/G Respiratory: Faint inspiratory bibasilar inspiratory crackles GI: BSx4, Soft, NT, ND, NO HSM, NO guarding/rebound tenderness Ext: mild nonpitting edema involving the bilateral ankles, Pulses are strong and equal, Capillary Refill is 2 seconds Neuro: CN II through XII are grossly intact Assessment and Plan: 1). Luekocytosis with Fever: repeat blood cultures negative, Sputum x [address] negative[address] Spoke with ID Dr. Calzada who was coverning for Dr. Carias and he recommended Bronchial Washing with cultures. Spoke with Jewelry Sales Representative Dr. Mckeon ( as airport security screener Dr. Barrow has not responded to our calls to see this patient) and he had planned to perform bronchoscopy for morning 01/28/17. However , OR schedule did not free up, therefore Dr. Mckeon to schedule the bronchoscopy/ bronchial washing for Thursday01/30/17 and this was performed: culture showed Marcella albicans and Coag Neg Staph and Sputum AFB is negative. He was started on Diflucan 200 mg IV on 02/03/17 and treated through 02/13/17. Blood and Urine Cultures from 02/07/17 are negative. Sputum Culture 02/07/17 showed Raoultella planticola and Enterobacter cloacae and patient was on Ceftriaxone from 02/03/17 through 02/13/17. S/P Bone Marrow Bx 02/10/17 and Bone Marrow Cultures are currently negative. Bone Marrow Bx Pathology: showed NO abnormal myeloid maturation, no increased blasts, no lymphoproliferative disorder, no plasma cell dyscrasia, no leukemia, no metastasis, no lymphoma F/U Autoimmune Workup. 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 Diflucan and Ceftriaxone which the patient had been on since 02/03/17 were discontinued by ID on 02/13/17. ID Dr. Calzada then restarted Aztreonam 2 gm IV Q8H and Vancomycin 1 gm IV Q12H on 02/14/17. Currently he is only on Aztreonam. MRI Thoracic and Cervical Spine 02/12/17 did not reveal any abscesses but did now show abnormal signal on the vertebrae suspicious for hematologic abnormality. Gallium Scan 02/12/17 showed increased radiotracer uptake in the lower lobes and nonspecific raditracer uptake in the left colon: I will speak with IR on 02/24/17 to see if these are amenable to FNA biopsy Repeat Blood Cultures 02/19/17 and 02/21/17 are negative to date. Repeat Urine Culture 02/19/17 dis not show growth Although Neurologist Dr. Mason does not recommend Lumbar Tap due to the lack of neurologic symptoms currently. However, CSF is the one area that we have not cultured. I will speak with Neurology again on 02/24/17. 2). Hx Elevated Troponin: likely secondary to episode of V Tach. Cardiac Cath performed by Dr. Pryor 01/27/17 showed clean coronaries. Therapeutic Lovenox was discontinued. He is on Amiodarone 3). Hyponatremia: resolved. Monitor 4). Hx Bacteremia: repeat cultures have been negative to date as mentioned above 5). Hx of TB Prophylaxis: he was on INH upon admission but currently not on anything. Sputum x 3 negative. F/U Mycobacterium cultures. Repeat CT Chest shows no change when compared to 01/20/17 (please see full reports). 6). Hx Diffuse Rash: resolved 7). Hx Pancreatic Lesion: F/U CT Abdomen in 6 months 8). 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 Aspirin 9). Hx Constipation: resolved 10). Anemia likely secondary to Chronic Disease: stable 11). Hx Hypothyroidism: levothyroxine 12). Hx Vertigo: resolved and was likely secondary to the Minocycline that patient was on at the time of admission and once discontinued, this issue resolved and has not recurred 13). Hx Diarrhea: resolved 14). Hx Bilateral Lower Leg Edema: duplex are negative, much improved and now mild non-pitting edema involving the ankles 15). Hx Elevated LFTs: resolved 16). Prophylaxis: Lovenox, Guaifenesin, Ibuprofen, Atrovent, Zofran, Promethazine/Codeine, Tramadol Ian Gresham D.O.
[2017-02-24] MEDS: Levothyroxine 112 MCG TAB PO SCH (06:06)
[2017-02-24] MEDS: Aztreonam 2 GM in Sodium Chloride 0.9% 100 ML IVPB SCH ×3 (06:09→21:51)
[2017-02-24 08:10] LABS: BASO # 0.1 K/uL (0.0-0.2); BASO % 0.3 % (0.0-2.0); EOS # 0.6 K/uL (0.0-0.7); EOS % 2.1 % (0.0-4.0); HEMATOCRIT 29.2 % (35.0-51.0); LYMPH # 1.8 K/uL (1.0-4.3); MEAN CELL VOLUME 83.7 fL (80.0-94.0); MEAN CORPUSCULAR HEMOGLOBIN 26.9 pg (27.0-31.0); MEAN CORPUSCULAR HGB CONC 32.1 g/dL (33.0-37.0); MEAN PLATELET VOLUME 7.7 fL (7.2-11.7); MONO # 0.5 K/uL (0.0-0.8); MONO % 1.7 % (0.0-10.0); PLATELET COUNT 601 K/uL (130-400); RED CELL DISTRIBUTION WIDTH 19.7 % (11.5-14.5); WHITE BLOOD COUNT 26.5 K/uL (4.8-10.8)
[2017-02-24 08:51] LABS: CHLORIDE 101 mmol/L (98-107); SODIUM 136 mmol/L (132-148)
[2017-02-24 08:52] LABS: POTASSIUM 4.4 mmol/L (3.6-5.2)
[2017-02-24 08:54] LABS: ALB/GLOB RATIO 0.5 (1.0-2.1); ALKALINE PHOSPHATASE 138 U/L (38-126); ALT/SGPT 50 U/L (21-72); AST/SGOT 50 U/L (17-59); BILIRUBIN,TOTAL 0.4 mg/dL (0.2-1.3); BLOOD UREA NITROGEN 23 mg/dL (9-20); CALCIUM 7.8 mg/dl (8.6-10.4); CARBON DIOXIDE 26 mmol/L (22-30); GFR AFRICAN-AMERICAN > 60; GLUCOSE,RANDOM 82 mg/dL (75-110); PHOSPHOROUS 4.4 mg/dL (2.5-4.5); TOTAL PROTEIN 7.8 g/dL (6.3-8.3)
[2017-02-24 08:55] LABS: MAGNESIUM 1.6 mg/dL (1.6-2.3)
[2017-02-24 09:04] LABS: MYELOCYTE 2 % (0-0); NEUTROPHIL 89 % (50-75); TOTAL CELLS COUNTED 100
[2017-02-24 09:05] LABS: GIANT PLATELETS PRESENT; LARGE PLATELETS PRESENT
--- NOTE | 2017-02-24 09:34 | CP.PCM.PN ---
<Loan Reyna - Last Filed: 02/24/17 13:18> Subjective - Date & Time of Evaluation Date of Evaluation: 02/24/17 Time of Evaluation: 09:31 - Subjective Subjective: Patient seen and examined at bedside. Patient denied any acute events overnight. Patient states he had the best sleep last night since his admission. Patient denied any navarro/cp/sob/abd pain/f/c/n/v/d. Patient reports right plantar pain which he has had previously but says it has been improving. Objective - Vital Signs/Intake and Output Vital Signs (last 24 hours): Temp Pulse Resp BP Pulse Ox 98.5 F 71 20 108/51 L 99 02/24/17 08:00 02/24/17 08:00 02/24/17 08:00 02/24/17 08:00 02/24/17 08:00 Intake and Output: 02/24/17 02/24/17 06:59 18:59 Intake Total 340 Output Total 750 Balance -410 - Medications Medications: Current Medications Acetaminophen (Tylenol 325mg Tab) 650 mg PO Q6 PRN PRN Reason: Fever >100.4 F Last Admin: 02/15/17 10:17 Dose: 650 mg Amiodarone HCl (Cordarone) 200 mg PO BID [facility] Last Admin: 02/23/17 19:14 Dose: 200 mg Enoxaparin Sodium (Lovenox) 40 mg SC DAILY [facility] Last Admin: 02/23/17 10:25 Dose: 40 mg Guaifenesin (Mucinex La) 600 mg PO BID [facility] Last Admin: 02/23/17 19:14 Dose: 600 mg Aztreonam 2 gm/ Sodium (Chloride) 100 mls @ 200 mls/hr IVPB Q8H [facility] Last Admin: 02/24/17 06:09 Dose: 200 mls/hr Ibuprofen (Motrin Tab) 600 mg PO TID PRN PRN Reason: fever Last Admin: 02/23/17 22:10 Dose: 600 mg Ipratropium [place] (Atrovent Hfa) 2 puff IH RQ6 PRN PRN Reason: Shortness of Breath Lactic Acid (Lac-Hydrin 12% Lotion (225 G)) 225 gm EXT Q1H PRN PRN Reason: Dry skin Last Admin: 02/04/17 18:34 Dose: 1 applic Levothyroxine Sodium (Synthroid) 112 mcg PO DAILY@0630 [facility] Last Admin: 02/24/17 06:06 Dose: 112 mcg Ondansetron HCl (Zofran Inj) 4 mg IVP Q6H PRN PRN Reason: nausea Last Admin: 02/14/17 18:46 Dose: 4 mg Promethazine HCl/Codeine (Phenergan/Codeine Oral Syrup) 5 ml PO Q4 PRN PRN Reason: Cough Last Admin: 02/14/17 18:15 Dose: 5 ml Tramadol HCl (Ultram) 25 mg PO BID PRN PRN Reason: Pain, moderate (4-7) Last Admin: 02/19/17 18:11 Dose: 25 mg - Labs Labs: 02/24/17 08:00 02/24/17 08:00 PT 13.2 SECONDS (9.7-12.2) H 01/20/17 19:37 INR 1.2 01/20/17 19:37 APTT 32 SECONDS (21-34) 01/20/17 19:37 - Constitutional Appears: Non-toxic, No Acute Distress - Head Exam Head Exam: NORMAL INSPECTION - Eye Exam Eye Exam: EOMI - ENT Exam ENT Exam: Mucous Membranes Moist - Respiratory Exam Respiratory Exam: Clear to Ausculation Bilateral, NORMAL BREATHING PATTERN - Cardiovascular Exam Cardiovascular Exam: REGULAR RHYTHM, +S1, +S2 - GI/Abdominal Exam GI & Abdominal Exam: Soft, Normal Bowel Sounds. absent: Distended, Tenderness - Extremities Exam Extremities Exam: absent: Calf Tenderness, Joint Swelling - Psychiatric Exam Psychiatric exam: Normal Affect, Normal Mood - Skin Skin Exam: Dry, Intact, Normal Color, Warm Assessment and Plan - Assessment and Plan (Free Text) Assessment: Leukocytosis * Bronch - Aristeo and Coag negative staph from Bronchial washing, mycobacterium culture negative * blood culture 02/19/17: negative 48 hours * 02/21/17: switched antibiotics from cefepime to aztreonam * 02/22/17: WBC count down trending * Blood culture - 02/12 - negative x3 days * Repeat blood culture 02/13 - negative x 3 days * Urine Culture - 02/12 - negative * Sputum culture - 02/12 - Hafnia alvei, sensitive to Aztreonam * Previous Sputum Culture - Raoultella Planticola, Enterobacter Cloacae * Abx started as per Dr. Calzada, Cefepime 2 gm IV q8h * MRI Thoracic and Cervical Spine 02/12/17 did not reveal any abscesses but did now show abnormal signal on the vertebrae suspicious for hematologic abnormality * Gallium scan part 1 on 02/15 and part 2 on 02/16 after magnesium citrate prep - Mild patchy increased radiotracer uptake at the lower lung lobes more on the right (Nonspecific and may represent infectious or inflammatory pneumonitis). Diffuse linear/ tubular shaped increased radiotracer uptake at the left abdomen suspicious for uptake in the left colon. Correlate clinically for colitis. * Abdominal pain (02/18) * Repeat CT abd/pelvis: Bibasal or consolidation. Small bulla/bleb in the right lower lobe. No change. Right renal cyst with a calcification noted in the wall of the cyst. No stones are seen in the left kidney. Small hiatal hernia. Very small pleural effusions bilaterally. Small inguinal hernias containing fat bilaterally. * lipase - 159 * amylase - 103 * f/u stool C. diff, serology negative * IR consult for FNA lung bx (held DVT PPX) * Neurology consult ([facility]) does not recommend LP at this time due to lack of neuro symptoms * Procal: 0.58 * urine culture negative Myalgia * New onset b/l upper extremity pain when he flexes the arms, more on the right than the left assoc with headache * significantly decreased muscle strength bilaterally in the upper extremity * Last head CT/Brain MRI was unremarkable * MRI of the spine - No epidural abscess. Bone marrow signaling abnormal. Consider hematopoietic process * Total CK - 50 * ESR - 134 * CRP - >15 * LDH - 719 Right knee pain and leg pain * knee XR - arthritis * venous duplex RLE: no evidence of DVT Fever * Heme ([place]) - * Bone Marrow Bx - no abnormal myeloid maturation or increased blasts, no lymphoproliferative disorder or plasma cell dyscrasia (on first sample); tiny normocellular marrow particle showing trilineage hematopoesis without evidence of acute leukemia, metastatic neoplasm, plasma cell neoplasm, or lymphoma; however sample was suboptimal containing mostly clot and very little marrow sample (on second sample) * Anerobic culture negative * Autoimmune Workup - F/U * dsDNA - <1 * Anti-Montelongo - <1 * CHAVA - 1:160, Speckled H, + ANA6 * C-ANCA - negative * P-ANCA - negative * MPO Ab - <1 * PR3 - <1 * f/u lupus studies (02/21) * Aspergillus - negative * Afebrile since Tmax 102 on 02/14 * Abx cont per Dr. Zheng greenfield. History of hypothyroidism * Synthroid 88mcg PO daily * TSH 9.9 on 01/26 * Repeat thyroid panel showed TSH 7.32, free T4 1.51, Total T3 0.584, and T3 3rd Gen 7.32 on 02/15 * Thyroid ultrasound unremarkable * Consulted Endocrinology (02/17) (Dr. Mccormick) - recs appreciated Vtach * Stable * Patient Had Rapid called on 01/26 for Vtach - was asx * Cath on 01/27 - Normal coronaries, normal EF by echo * Started on Metoprolol 25 Q6H * Echo - EF 65-70 * Stopped therapeutic Lovenox * 01/30 Another episode of Asx Vtach (13 beats), Cards ([place]) started Cordarone 200mg PO BID Hx of TB PPX * On INH at admission, no longer on anything * Sputum x 3 negative * Repeat CT Chest 01/26/17 shows no change when compared to 01/20/17 Hx of hyponatremia * resolved * monitor Hx pancreatic lesion * F/u CT abdomen in 6 mon Superficial Thrombophlebitis * Right Cephalic Vein Thrombosis as per UE Duplex. Aspirin Hx Elevated LFTs * resolving <Ian Gresham - Last Filed: 02/24/17 17:42> Objective - Vital Signs/Intake and Output Vital Signs (last 24 hours): Temp Pulse Resp BP Pulse Ox 98.5 F 71 20 108/51 L 99 02/24/17 08:00 02/24/17 08:00 02/24/17 08:00 02/24/17 08:00 02/24/17 08:00 Intake and Output: 02/24/17 02/24/17 06:59 18:59 Intake Total 340 600 Output Total 750 Balance -410 600 - Medications Medications: Current Medications Acetaminophen (Tylenol 325mg Tab) 650 mg PO Q6 PRN PRN Reason: Fever >100.4 F Last Admin: 02/15/17 10:17 Dose: 650 mg Amiodarone HCl (Cordarone) 200 mg PO BID [facility] Last Admin: 02/24/17 17:11 Dose: 200 mg Enoxaparin Sodium (Lovenox) 40 mg SC DAILY [facility] Last Admin: 02/24/17 10:48 Dose: 40 mg Guaifenesin (Mucinex La) 600 mg PO BID [facility] Last Admin: 02/24/17 17:11 Dose: 600 mg Aztreonam 2 gm/ Sodium (Chloride) 100 mls @ 200 mls/hr IVPB Q8H [facility] Last Admin: 02/24/17 12:33 Dose: 200 mls/hr Ibuprofen (Motrin Tab) 600 mg PO TID PRN PRN Reason: fever Last Admin: 02/23/17 22:10 Dose: 600 mg Ipratropium [place] (Atrovent Hfa) 2 puff IH RQ6 PRN PRN Reason: Shortness of Breath Lactic Acid (Lac-Hydrin 12% Lotion (225 G)) 225 gm EXT Q1H PRN PRN Reason: Dry skin Last Admin: 02/04/17 18:34 Dose: 1 applic Levothyroxine Sodium (Synthroid) 112 mcg PO DAILY@0630 [facility] Last Admin: 02/24/17 06:06 Dose: 112 mcg Ondansetron HCl (Zofran Inj) 4 mg IVP Q6H PRN PRN Reason: nausea Last Admin: 02/14/17 18:46 Dose: 4 mg Promethazine HCl/Codeine (Phenergan/Codeine Oral Syrup) 5 ml PO Q4 PRN PRN Reason: Cough Last Admin: 02/14/17 18:15 Dose: 5 ml Tramadol HCl (Ultram) 25 mg PO BID PRN PRN Reason: Pain, moderate (4-7) Last Admin: 02/19/17 18:11 Dose: 25 mg - Labs Labs: 02/24/17 08:00 02/24/17 08:00 PT 13.2 SECONDS (9.7-12.2) H 01/20/17 19:37 INR 1.2 01/20/17 19:37 APTT 32 SECONDS (21-34) 01/20/17 19:37 Attending/Attestation - Attestation I have personally seen and examined this patient.: Yes I have fully participated in the care of the patient.: Yes I have reviewed all pertinent clinical information, including history, physical exam and plan: Yes Notes (Text): 02/24/17 17:38 Hospitalist Progress Note Patient was seen and examined on 02/24/17 at 2:00 PM Upon FULL ROS Complains of loss of appetite today NO other complaints upon FULL ROS Exam: General: AAOx3, NAD HEENT: NCA, EOMI, PERRLA, (+) 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 Leukocytosis; Fever of Unknown Origin * Pulmonary (Dr. Mckeon) on board * Infectious Disease (Dr. Calzada/Dr. Carias) on board * Heme-onc (Dr. Jenniefr Alexandre) on board * s/p bronchoscopy/bronchial washing for Thursday01/30/17 and this was performed: culture showed Aristeo albicans and Coag Neg Staph and Sputum AFB is negative--- >completed Diflucan 200 mg IV on 02/03/17 and treated through 02/13/17. * CT scan Chest/Abdomen/Pelvis (02/03/17): largely stable findings within the chest; included septa; thickening; persistent bibasilar consolidation bronchiesctasis; lymphadenopathy including mediastinal and axillary lymph nodes ; cervical lymphadenopathy present * Sputum Culture 02/07/17 showed Raoultella planticola and Enterobacter cloacae and patient was on Ceftriaxone from 02/03/17 through 02/13/17. * S/P Bone Marrow Bx 02/10/17 and Bone Marrow Cultures are currently negative--> . F/U Bone Marrow Bx Pathology * Bone Marrow Bx-no abnormal myeloid maturation or increased blasts, no lymphoproliferative disorder or plasma cell dyscrasia (on first sampl): tiny normocellular marrow particle showing trilinerage hematopoesis without evidence of acute leukemia, metastatic neoplasm, plasma cell neoplasm, or lymphoma; however suboptimal containing mostly clot and very little marrow sample * f/u with heme-onc * Sputum Culture 02/12/17 showed Hafnia alvei-->Aztrenoam 2gm IV Q 8 hours ( restarted since 02/21/17) * D/C Maxipime 2gm IV Q 8 hours (active 02/19/17) * MRI Thoracic and Cervical Spine 02/12/17 did not reveal any abscesses but did now show abnormal signal on the vertebrae suspicious for hematologic abnormality * Patient had Gallium Scan Part #1 on 02/15/17 and Part #2 02/16/17 * Mild patchy increased radiotracer uptake in the lower lobes more on the right (nonspecific and may represent infectious or inflammatory pneumonitis. Diffuse liner/tubular shaped increase radiotracer uptake at the left abdomen suspicious for uptake in the left colon. Correlate clinically for colitis * CT Abdomen/Pelvis w PO contrast (02/18/17): bibasal or consolidation. Small bulla/bleb in right lower lobe. No change. Right renal cyst with a calcification in the wall of the cyst. No stones are seen in the left kidney. Small hiatal hernia. Very small pleural effusions bilaterally. Small inguinal hernia containing fat bilaterally * Possible FNA Lung Bx, no Lumbar Puncture per neurology, and questionable NEVAEH? Microbiology: * Aspergillus: negative * Q fever: negative * Hepatitis Panel: negative * Blood parasites: negative * Hepatitis panel: negative * Coccidiodes F-Ag Ab/TP-Ag Ab: negative * C. difficle toxin: negative X7 * Quantaferon:L indeterminate * S. pneumoniae Ag: negative * Group B Strep Antigen: not required * N. meningitis: not required * Urine legionella: negative * HIV: negative X3 * Brucella: negative * RPR: nonreactive Positive Microbiology--which have all been treated during hospitalization. 01/01: Blood: Coag neg Staph (1/2) bottles; 01/02 Blood cultures negative X2 5 days 01/03; 01/06; 01/07 Mycobacterial Culture: no fast acid bacilli identified; no Mycobacterium isolated for 6 weeks X3 Bone Marrow: no acid fast isolated 01/26: Sputum: Yeast 01/30: Bronchial washings: aristeo albicans and coag negative Stap 02/07: Sputum: Raoultella Planticola and Enterobacter Cloacae 02/10: Bone Marrow Staphyloccous Sp Coag 02/12: Sputum: Hafnia Alvei Latest 02/19: Blood and urine are negative 02/21: Blood and urine f/u Immunology: * CHAVA: positive; 1:160, speckled, ANCA: negative, Proteinase 3: <1.0, Myeloperoxidase <1.0, Montelongo Ab <1.0 UDS: negative 2). Hx Elevated Troponin: likely secondary to episode of V Tach. Cardiac Cath performed by Dr. Pryor 01/27/17 showed clean coronaries. Therapeutic Lovenox was discontinued. Patient is currently on telemetry. Amiodarone 200mg PO bid 3). Hyponatremia: Monitor 4). Hx Bacteremia: repeat cultures have been negative to date. Latest Blood cultures from 02/13/17 show no growth after 5 days and from 02/12/17 no growth for 5 days Blood cultures 02/19/17: no growth thus far Urine culture (02/19/17): no growth, Procalcitonin (02/19/17): 0.58 Blood cultures 02/21/17: pending 5). Hx of TB Prophylaxis: he was on INH upon admission but currently not on anything given transaminitis. Sputum x [address] Chest 01/26/17 shows no change when compared to 01/20/17 (please see full reports). 6). Hx Diffuse Rash: resolved 7). Hx Pancreatic Lesion: F/U CT Abdomen in 6 months; GI seen during hospitalization. 8). 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 Aspirin 9). Hx Constipation: resolved 10). Anemia likely secondary to Chronic Disease: stable 11). Hx Hypothyroidism: levothyroxine 88mcg PO q AM; f/u thyroid studies; thyroid US unremarkable 12). Hx Vertigo: resolved and was likely secondary to the Minocycline that patient was on at the time of admission and once discontinued, this issue resolved and has not recurred 13). Hx Diarrhea: resolved 14). Hx Bilateral Lower Leg Edema: duplex are negative, much improved and now mild non-pitting edema involving the ankles 15). Hx Elevated LFTs: monitor; hepatitis negative 16). History of hypothyroidism. c/w Synthroid 88mcg PO AM, TSH: 9.9 on 01/26/17, repeat thyroid panel: TSH: 7.32, Free t4: 1.51, Total T3: 0.584, T3 3rd generation 7.32, consult: endocrinology 17) Prophylactic measure: Lovenox 40mg subqdaily Ian J. Gresham, D.O.
[2017-02-24] MEDS: Enoxaparin 40 mg Syringe SC SCH (10:48)
[2017-02-24] MEDS: guaiFENesin 600 mg ER Tab PO SCH ×2 (10:48→17:11)
[2017-02-25 00:11] LABS: DNA AB (DS) CRITH NEGATIVE (NEGATIVE)
[2017-02-25 01:22] LABS: RHEUMATOID FACTOR 22 IU/mL (<14)
[2017-02-25] MEDS: Aztreonam 2 GM in Sodium Chloride 0.9% 100 ML IVPB SCH ×3 (05:20→21:56)
[2017-02-25] MEDS: Levothyroxine 112 MCG TAB PO SCH (05:48)
[2017-02-25 06:34] LABS: BASO # 0.1 K/uL (0.0-0.2); BASO % 0.4 % (0.0-2.0); EOS # 0.4 K/uL (0.0-0.7); EOS % 1.8 % (0.0-4.0); LYMPH # 1.9 K/uL (1.0-4.3); LYMPH % 9.2 % (20.0-40.0); MEAN CELL VOLUME 83.2 fL (80.0-94.0); MEAN CORPUSCULAR HEMOGLOBIN 27.6 pg (27.0-31.0); MEAN CORPUSCULAR HGB CONC 33.1 g/dL (33.0-37.0); MEAN PLATELET VOLUME 7.8 fL (7.2-11.7); MONO # 0.5 K/uL (0.0-0.8); MONO % 2.2 % (0.0-10.0); PLATELET COUNT 573 K/uL (130-400); RED CELL DISTRIBUTION WIDTH 19.2 % (11.5-14.5); WHITE BLOOD COUNT 21.2 K/uL (4.8-10.8)
[2017-02-25 07:38] LABS: CHLORIDE 101 mmol/L (98-107); POTASSIUM 4.1 mmol/L (3.6-5.2); SODIUM 130 mmol/L (132-148)
[2017-02-25 07:40] LABS: ALB/GLOB RATIO 0.5 (1.0-2.1); ALKALINE PHOSPHATASE 145 U/L (38-126); AST/SGOT 51 U/L (17-59); BILIRUBIN,TOTAL 0.5 mg/dL (0.2-1.3); CARBON DIOXIDE 25 mmol/L (22-30); GFR AFRICAN-AMERICAN > 60; TOTAL PROTEIN 7.7 g/dL (6.3-8.3)
[2017-02-25 07:41] LABS: ALT/SGPT 45 U/L (21-72); BLOOD UREA NITROGEN 21 mg/dL (9-20); CALCIUM 7.5 mg/dl (8.6-10.4); GLUCOSE,RANDOM 86 mg/dL (75-110)
[2017-02-25 08:58] LABS: BASOPHIL 1 % (0-2); EOSINOPHIL 1 % (0-4); MYELOCYTE 2 % (0-0); NEUTROPHIL 87 % (50-75); TOTAL CELLS COUNTED 100
[2017-02-25 09:01] LABS: LARGE PLATELETS PRESENT
[2017-02-25] MEDS: Enoxaparin 40 mg Syringe SC SCH (09:55)
[2017-02-25] MEDS: guaiFENesin 600 mg ER Tab PO SCH ×2 (09:55→17:39)
--- NOTE | 2017-02-25 10:39 | VASCLAB ---
PROCEDURE: Lower Extremity Venous Duplex Exam. HISTORY: Leg swelling PRIORS: None. TECHNIQUE: Bilateral common femoral, femoral, popliteal and posterior tibial, peroneal and great saphenous veins were evaluated. Flow was assessed with color Doppler, compressibility, assessment of phasic flow and augmentation response. Report prepared by JOSE EDUARDO Pepper, RVT FINDINGS: RIGHT: 1. Common Femoral Vein: 1.1. Compressibility - Fully compressible: Thrombus - None : Flow - Phasic: Augmentation -Normal: Reflux - None. 2. Femoral Vein: 2.1. Compressibility - Fully compressible: Thrombus - None : Flow - Phasic: Augmentation -Normal: Reflux - None. 3. Popliteal Vein: 3.1. Compressibility - Fully compressible: Thrombus - None : Flow - Phasic: Augmentation -Normal: Reflux - None. 4. Posterior Tibial Vein: 4.1. Compressibility - Fully compressible: Thrombus - None: Flow - Phasic: Augmentation -Normal: Reflux - None. 5. Peroneal Vein: 5.1. Compressibility - Fully compressible: Thrombus - None: Flow - Phasic: Augmentation -Normal: Reflux - None. 6. Great Saphenous Vein: 6.1. Compressibility - Fully compressible: Thrombus - None: Flow - Phasic: Augmentation - Normal: Reflux - None. LEFT: 1. Common Femoral Vein: 1.1. Compressibility - Fully compressible: Thrombus - None: Flow - Phasic: Augmentation -Normal: Reflux - None. 2. Femoral Vein: 2.1. Compressibility - Fully compressible: Thrombus - None: Flow - Phasic: Augmentation -Normal: Reflux - None. 3. Popliteal Vein: 3.1. Compressibility - Fully compressible: Thrombus - None : Flow - Phasic: Augmentation -Normal: Reflux - None. 4. Posterior Tibial Vein: 4.1. Compressibility - Fully compressible: Thrombus - None: Flow - Phasic: Augmentation -Normal: Reflux - None. 5. Peroneal Vein: 5.1. Compressibility - Fully compressible: Thrombus - None: Flow - Phasic: Augmentation -Normal: Reflux - None. 6. Great Saphenous Vein: 6.1. Compressibility - Fully compressible: Thrombus - None: Flow - Phasic: Augmentation - Normal: Reflux - None. OTHER FINDINGS: Right: None significant. Left: None significant. IMPRESSION: Right: No evidence of deep or superficial vein thrombosis of the right lower extremity. Normal valve function noted of the right side. Left: No evidence of deep or superficial vein thrombosis of the left lower extremity. Normal valve function noted of the left side.
--- NOTE | 2017-02-25 10:40 | VASCLAB ---
PROCEDURE: Upper Extremity Venous Duplex Exam HISTORY: Leg swelling PRIORS: None. TECHNIQUE: Bilateral upper extremity, internal jugular, subclavian, axillary, brachial, ulnar, radial, basilic and upper cephalic veins were evaluated. Flow was assessed with color Doppler, compressibility, assessment of phasic flow and augmentation response. Report prepared by Dillan Martinez, JOSE EDUARDO, RVT FINDINGS: RIGHT: 1. Internal Jugular: 1.1. Compressibility - Fully compressible: Thrombus - None : Flow - Phasic: Augmentation -Normal: Reflux - None. 2. Subclavian: 2.1. Compressibility - Fully compressible: Thrombus - None : Flow - Phasic: Augmentation -Normal: Reflux - None. 3. Axillary: 3.1. Compressibility - Fully compressible: Thrombus - None : Flow - Phasic: Augmentation -Normal: Reflux - None. 4. Brachial: 4.1. Compressibility - Fully compressible: Thrombus - None: Flow - Phasic: Augmentation -Normal: Reflux - None. 5. Ulnar: 5.1. Compressibility - Fully compressible: Thrombus - None: Flow - Phasic: Augmentation -Normal: Reflux - None. 6. Radial: 6.1. Compressibility - Fully compressible: Thrombus - None: Flow - Phasic: Augmentation - Normal: Reflux - None. 7. Cephalic: 7.1. Compressibility - Fully compressible: Thrombus - None: Flow - Phasic: Augmentation -Normal: Reflux - None. 8. Basilic: 8.1. Compressibility - Fully compressible: Thrombus - None: Flow - Phasic: Augmentation -Normal: Reflux - None. LEFT: 1. Internal Jugular: 1.1. Compressibility - Fully compressible: Thrombus - None : Flow - Phasic: Augmentation -Normal: Reflux - None. 2. Subclavian: 2.1. Compressibility - Fully compressible: Thrombus - None : Flow - Phasic: Augmentation -Normal: Reflux - None. 3. Axillary: 3.1. Compressibility - Fully compressible: Thrombus - None : Flow - Phasic: Augmentation -Normal: Reflux - None. 4. Brachial: 4.1. Compressibility - Fully compressible: Thrombus - None: Flow - Phasic: Augmentation -Normal: Reflux - None. 5. Ulnar: 5.1. Compressibility - Fully compressible: Thrombus - None: Flow - Phasic: Augmentation -Normal: Reflux - None. 6. Radial: 6.1. Compressibility - Fully compressible: Thrombus - None: Flow - Phasic: Augmentation - Normal: Reflux - None. 7. Cephalic: 7.1. Compressibility - Fully compressible: Thrombus - None: Flow - Phasic: Augmentation -Normal: Reflux - None. 8. Basilic: 8.1. Compressibility - Fully compressible: Thrombus - None: Flow - Phasic: Augmentation -Normal: Reflux - None. OTHER FINDINGS: Right: None. Left: None. IMPRESSION: Right: No evidence of vein thrombosis of the right upper extremity with excellent venous flow. Normal valve function noted of the right side. Left: No evidence of vein thrombosis of the left upper extremity with excellent venous flow. Normal valve function noted of the left side.
--- NOTE | 2017-02-25 11:36 | CP.PCM.PN ---
<Loan Reyna - Last Filed: 02/25/17 16:57> Subjective - Date & Time of Evaluation Date of Evaluation: 02/25/17 Time of Evaluation: 11:34 - Subjective Subjective: Patient seen and examined at bedside. Patient denied any acute events overnight. Patient states he is still having right leg pain and some mild chest pain. Patient also admits to a dry feeling in his throat and says it hurts sometimes when he is eating. Patient denied any navarro/sob/abd pain/f/c/n/v/d. Patient is frustrated because he wants to know what is going on with him. Objective - Vital Signs/Intake and Output Vital Signs (last 24 hours): Temp Pulse Resp BP Pulse Ox 98.5 F 100 H 20 126/78 96 02/25/17 07:00 02/25/17 07:00 02/25/17 07:00 02/25/17 07:00 02/25/17 07:00 Intake and Output: 02/25/17 02/25/17 06:59 18:59 Intake Total 580 Output Total 250 Balance 330 - Medications Medications: Current Medications Acetaminophen (Tylenol 325mg Tab) 650 mg PO Q6 PRN PRN Reason: Fever >100.4 F Last Admin: 02/15/17 10:17 Dose: 650 mg Amiodarone HCl (Cordarone) 200 mg PO BID [facility] Last Admin: 02/25/17 09:55 Dose: 200 mg Enoxaparin Sodium (Lovenox) 40 mg SC DAILY [facility] Last Admin: 02/25/17 09:55 Dose: 40 mg Guaifenesin (Mucinex La) 600 mg PO BID [facility] Last Admin: 02/25/17 09:55 Dose: 600 mg Aztreonam 2 gm/ Sodium (Chloride) 100 mls @ 200 mls/hr IVPB Q8H [facility] Last Admin: 02/25/17 05:20 Dose: 200 mls/hr Ibuprofen (Motrin Tab) 600 mg PO TID PRN PRN Reason: fever Last Admin: 02/23/17 22:10 Dose: 600 mg Ipratropium [place] (Atrovent Hfa) 2 puff IH RQ6 PRN PRN Reason: Shortness of Breath Lactic Acid (Lac-Hydrin 12% Lotion (225 G)) 225 gm EXT Q1H PRN PRN Reason: Dry skin Last Admin: 02/04/17 18:34 Dose: 1 applic Levothyroxine Sodium (Synthroid) 112 mcg PO DAILY@0630 [facility] Last Admin: 02/25/17 05:48 Dose: 112 mcg Ondansetron HCl (Zofran Inj) 4 mg IVP Q6H PRN PRN Reason: nausea Last Admin: 02/14/17 18:46 Dose: 4 mg Promethazine HCl/Codeine (Phenergan/Codeine Oral Syrup) 5 ml PO Q4 PRN PRN Reason: Cough Last Admin: 02/14/17 18:15 Dose: 5 ml Tramadol HCl (Ultram) 25 mg PO BID PRN PRN Reason: Pain, moderate (4-7) Last Admin: 02/19/17 18:11 Dose: 25 mg - Labs Labs: 02/25/17 06:18 02/25/17 06:18 PT 13.2 SECONDS (9.7-12.2) H 01/20/17 19:37 INR 1.2 01/20/17 19:37 APTT 32 SECONDS (21-34) 01/20/17 19:37 - Constitutional Appears: Non-toxic, No Acute Distress - Head Exam Head Exam: NORMAL INSPECTION - Eye Exam Eye Exam: EOMI - ENT Exam ENT Exam: Mucous Membranes Moist - Respiratory Exam Respiratory Exam: Clear to Ausculation Bilateral, NORMAL BREATHING PATTERN - Cardiovascular Exam Cardiovascular Exam: REGULAR RHYTHM, +S1, +S2. absent: Murmur - GI/Abdominal Exam GI & Abdominal Exam: Soft, Normal Bowel Sounds. absent: Distended, Tenderness - Extremities Exam Extremities Exam: Normal Capillary Refill, Normal Inspection, Tenderness (right thigh, mild pain w/ deep palpation). absent: Pedal Edema - Neurological Exam Neurological Exam: Alert, Awake, Oriented x3 - Psychiatric Exam Psychiatric exam: Normal Affect, Normal Mood - Skin Skin Exam: Dry, Intact, Normal Color, Warm Assessment and Plan - Assessment and Plan (Free Text) Assessment: Sjogren Syndrome * SS-a and SS-B positive * F/U CT neck soft tissue with and without contrast Leukocytosis * Bronch - Aristeo and Coag negative staph from Bronchial washing, mycobacterium culture negative * blood culture 02/19/17: negative 48 hours * 02/21/17: switched antibiotics from cefepime to aztreonam * 02/25/17: WBC count down trending * Blood culture - 02/12 - negative x3 days * 02/13 - neg x 3 days * 02/21 - neg x3 days * Urine Culture - 02/12 - negative * 02/23 - negative * Sputum culture - 02/12 - Hafnia alvei * f/u repeat sputum culture (02/24) * Previous Sputum Culture - Raoultella Planticola, Enterobacter Cloacae * Abx started as per Dr. Calzada, Cefepime 2 gm IV q8h * MRI Thoracic and Cervical Spine 02/12/17 did not reveal any abscesses but did now show abnormal signal on the vertebrae suspicious for hematologic abnormality * Gallium scan part 1 on 02/15 and part 2 on 02/16 after magnesium citrate prep - Mild patchy increased radiotracer uptake at the lower lung lobes more on the right (Nonspecific and may represent infectious or inflammatory pneumonitis). Diffuse linear/ tubular shaped increased radiotracer uptake at the left abdomen suspicious for uptake in the left colon. Correlate clinically for colitis. * Abdominal pain (02/18) * Repeat CT abd/pelvis: Bibasal or consolidation. Small bulla/bleb in the right lower lobe. No change. Right renal cyst with a calcification noted in the wall of the cyst. No stones are seen in the left kidney. Small hiatal hernia. Very small pleural effusions bilaterally. Small inguinal hernias containing fat bilaterally. * lipase - 159 * amylase - 103 * f/u stool C. diff, serology negative * f/u IR consult for FNA lung bx * F/U Repeat Chest CT * Neurology consult ([facility]) does not recommend LP at this time due to lack of neuro symptoms * Procal: 0.58 * urine culture negative Myalgia * New onset b/l upper extremity pain when he flexes the arms, more on the right than the left assoc with headache * significantly decreased muscle strength bilaterally in the upper extremity * Last head CT/Brain MRI was unremarkable * MRI of the spine - No epidural abscess. Bone marrow signaling abnormal. Consider hematopoietic process * Total CK - 50 * ESR - 134 * CRP - >15 * LDH - 719 Right knee pain and leg pain * knee XR - arthritis * venous duplex RLE: no evidence of DVT Fever * Heme ([place]) - * Bone Marrow Bx - no abnormal myeloid maturation or increased blasts, no lymphoproliferative disorder or plasma cell dyscrasia (on first sample); tiny normocellular marrow particle showing trilineage hematopoesis without evidence of acute leukemia, metastatic neoplasm, plasma cell neoplasm, or lymphoma; however sample was suboptimal containing mostly clot and very little marrow sample (on second sample) * Anerobic culture negative * Autoimmune Workup - F/U * dsDNA - <1 * Anti-Montelongo - <1 * CHAVA - 1:160, Speckled H, + ANA6 * C-ANCA - negative * P-ANCA - negative * MPO Ab - <1 * PR3 - <1 * Autoimmune Workup #2 (02/21) * RF + * CHAVA + / CHAVA titer: 1:320 * Speckled CHAVA * SS-A and SS-B + --> Sjogren Syndrome * Actin IgG + @85 (seen in pts with AIH type 1) * Thyroperoxidase + @54 * Scl-70 negative * Ribosomal P Prot Ab negative * Antimitochondrial Ab negative * Complement C3 134 and C4 19 * F/U Striated muscle Ab, Myocardial Ab titer, Reticulin Ab titer, Reticulin IgA Ab, Anti-parietal cell Ab * lupus studies (02/21): negative * Aspergillus - negative * Afebrile since Tmax 102 on 02/14 * Abx cont per Dr. Zheng greenfield. History of hypothyroidism * Synthroid 88mcg PO daily * TSH 9.9 on 01/26 * Repeat thyroid panel showed TSH 7.32, free T4 1.51, Total T3 0.584, and T3 3rd Gen 7.32 on 02/15 * Thyroid ultrasound unremarkable * Consulted Endocrinology (02/17) (Dr. Mccormick) - levothyroxine inc to 112 mcg PO QD Vtach * Stable * Patient Had Rapid called on 01/26 for Vtach - was asx * Cath on 01/27 - Normal coronaries, normal EF by echo * Started on Metoprolol 25 Q6H * Echo - EF 65-70 * Stopped therapeutic Lovenox * 01/30 Another episode of Asx Vtach (13 beats), Cards ([facility]) started Cordarone 200mg PO BID Hx of TB PPX * On INH at admission, no longer on anything * Sputum x 3 negative * Repeat CT Chest 01/26/17 shows no change when compared to 01/20/17 Hx of hyponatremia * resolved * monitor Hx pancreatic lesion * F/u CT abdomen in 6 mon Superficial Thrombophlebitis * Right Cephalic Vein Thrombosis as per UE Duplex. Aspirin Hx Elevated LFTs * resolving <Ian Gresham - Last Filed: 02/25/17 17:21> Objective - Vital Signs/Intake and Output Vital Signs (last 24 hours): Temp Pulse Resp BP Pulse Ox 98.9 F 76 20 113/55 L 98 02/25/17 16:02 02/25/17 16:02 02/25/17 16:02 02/25/17 16:02 02/25/17 16:02 Intake and Output: 02/25/17 02/25/17 06:59 18:59 Intake Total 580 800 Output Total 250 Balance 330 800 - Medications Medications: Current Medications Acetaminophen (Tylenol 325mg Tab) 650 mg PO Q6 PRN PRN Reason: Fever >100.4 F Last Admin: 02/15/17 10:17 Dose: 650 mg Amiodarone HCl (Cordarone) 200 mg PO BID [facility] Last Admin: 02/25/17 09:55 Dose: 200 mg Enoxaparin Sodium (Lovenox) 40 mg SC DAILY [facility] Last Admin: 02/25/17 09:55 Dose: 40 mg Guaifenesin (Mucinex La) 600 mg PO BID [facility] Last Admin: 02/25/17 09:55 Dose: 600 mg Aztreonam 2 gm/ Sodium (Chloride) 100 mls @ 200 mls/hr IVPB Q8H [facility] Last Admin: 02/25/17 13:38 Dose: 200 mls/hr Ibuprofen (Motrin Tab) 600 mg PO TID PRN PRN Reason: fever Last Admin: 02/23/17 22:10 Dose: 600 mg Ipratropium [place] (Atrovent Hfa) 2 puff IH RQ6 PRN PRN Reason: Shortness of Breath Lactic Acid (Lac-Hydrin 12% Lotion (225 G)) 225 gm EXT Q1H PRN PRN Reason: Dry skin Last Admin: 02/04/17 18:34 Dose: 1 applic Levothyroxine Sodium (Synthroid) 112 mcg PO DAILY@0630 [facility] Last Admin: 02/25/17 05:48 Dose: 112 mcg Ondansetron HCl (Zofran Inj) 4 mg IVP Q6H PRN PRN Reason: nausea Last Admin: 02/14/17 18:46 Dose: 4 mg Promethazine HCl/Codeine (Phenergan/Codeine Oral Syrup) 5 ml PO Q4 PRN PRN Reason: Cough Last Admin: 02/14/17 18:15 Dose: 5 ml Tramadol HCl (Ultram) 25 mg PO BID PRN PRN Reason: Pain, moderate (4-7) Last Admin: 02/19/17 18:11 Dose: 25 mg - Labs Labs: 02/25/17 06:18 02/25/17 06:18 PT 13.2 SECONDS (9.7-12.2) H 01/20/17 19:37 INR 1.2 01/20/17 19:37 APTT 32 SECONDS (21-34) 01/20/17 19:37 Attending/Attestation - Attestation I have personally seen and examined this patient.: Yes I have fully participated in the care of the patient.: Yes I have reviewed all pertinent clinical information, including history, physical exam and plan: Yes Notes (Text): 02/25/17 17:18 Hospitalist Progress Note Patient was seen and examined on 02/24/17 at 2:00 PM Upon FULL ROS Complains of loss of appetite today NO other complaints upon FULL ROS Exam: General: AAOx3, NAD HEENT: NCA, EOMI, PERRLA, (+) Bilateral 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 Leukocytosis; Fever of Unknown Origin * Pulmonary (Dr. Mckeon) on board * Infectious Disease (Dr. Calzada/Dr. Carias) on board * Heme-onc (Dr. Jennifer Alexandre) on board * s/p bronchoscopy/bronchial washing for Thursday01/30/17 and this was performed: culture showed Aristeo albicans and Coag Neg Staph and Sputum AFB is negative--- >completed Diflucan 200 mg IV on 02/03/17 and treated through 02/13/17. * CT scan Chest/Abdomen/Pelvis (02/03/17): largely stable findings within the chest; included septa; thickening; persistent bibasilar consolidation bronchiesctasis; lymphadenopathy including mediastinal and axillary lymph nodes ; cervical lymphadenopathy present * Sputum Culture 02/07/17 showed Raoultella planticola and Enterobacter cloacae and patient was on Ceftriaxone from 02/03/17 through 02/13/17. * S/P Bone Marrow Bx 02/10/17 and Bone Marrow Cultures are currently negative--> . F/U Bone Marrow Bx Pathology * Bone Marrow Bx-no abnormal myeloid maturation or increased blasts, no lymphoproliferative disorder or plasma cell dyscrasia (on first sampl): tiny normocellular marrow particle showing trilinerage hematopoesis without evidence of acute leukemia, metastatic neoplasm, plasma cell neoplasm, or lymphoma; however suboptimal containing mostly clot and very little marrow sample * f/u with heme-onc * Sputum Culture 02/12/17 showed Hafnia alvei-->Aztrenoam 2gm IV Q 8 hours ( restarted since 02/21/17) * D/C Maxipime 2gm IV Q 8 hours (active 02/19/17) * MRI Thoracic and Cervical Spine 02/12/17 did not reveal any abscesses but did now show abnormal signal on the vertebrae suspicious for hematologic abnormality * Patient had Gallium Scan Part #1 on 02/15/17 and Part #2 02/16/17 * Mild patchy increased radiotracer uptake in the lower lobes more on the right (nonspecific and may represent infectious or inflammatory pneumonitis. Diffuse liner/tubular shaped increase radiotracer uptake at the left abdomen suspicious for uptake in the left colon. Correlate clinically for colitis * CT Abdomen/Pelvis w PO contrast (02/18/17): bibasal or consolidation. Small bulla/bleb in right lower lobe. No change. Right renal cyst with a calcification in the wall of the cyst. No stones are seen in the left kidney. Small hiatal hernia. Very small pleural effusions bilaterally. Small inguinal hernia containing fat bilaterally * I spoke with IR Dr. Rosa Jacobson (02/25/17): Dr. Jacobson reveiwed prior CTs and unfortunately does not have a seeable area for FNA biopsy. He recommended repeat CT Chest and this has been ordered * CT Soft Neck has also been ordered for 02/26/17 along with the repeat CT Chest Patient likely has Sjogren's Syndrome considering the results of autoimmune testing. He will need outpatient follow up with Rheumatology through [facility]. Microbiology: * Aspergillus: negative * Q fever: negative * Hepatitis Panel: negative * Blood parasites: negative * Hepatitis panel: negative * Coccidiodes F-Ag Ab/TP-Ag Ab: negative * C. difficle toxin: negative X7 * Quantaferon:L indeterminate * S. pneumoniae Ag: negative * Group B Strep Antigen: not required * N. meningitis: not required * Urine legionella: negative * HIV: negative X3 * Brucella: negative * RPR: nonreactive Positive Microbiology--which have all been treated during hospitalization. 01/01: Blood: Coag neg Staph (06/23) bottles; 01/02 Blood cultures negative X2 5 days 01/03; 01/06; 01/07 Mycobacterial Culture: no fast acid bacilli identified; no Mycobacterium isolated for 6 weeks X3 Bone Marrow: no acid fast isolated 01/26: Sputum: Yeast 01/30: Bronchial washings: aristeo albicans and coag negative Stap 02/07: Sputum: Raoultella Planticola and Enterobacter Cloacae 02/10: Bone Marrow Staphyloccous Sp Coag 02/12: Sputum: Hafnia Alvei Latest 02/19: Blood and urine are negative 02/21: Blood and urine f/u Immunology: * CHAVA: positive; 1:160, speckled, ANCA: negative, Proteinase 3: <1.0, Myeloperoxidase <1.0, Montelongo Ab <1.0 UDS: negative 2). Hx Elevated Troponin: likely secondary to episode of V Tach. Cardiac Cath performed by Dr. Pryor 01/27/17 showed clean coronaries. Therapeutic Lovenox was discontinued. Patient is currently on telemetry. Amiodarone 200mg PO bid 3). Hyponatremia: Monitor 4). Hx Bacteremia: repeat cultures have been negative to date. Latest Blood cultures from 02/13/17 show no growth after 5 days and from 02/12/17 no growth for 5 days Blood cultures 02/19/17: no growth thus far Urine culture (02/19/17): no growth, Procalcitonin (02/19/17): 0.58 Blood cultures 02/21/17: pending 5). Hx of TB Prophylaxis: he was on INH upon admission but currently not on anything given transaminitis. Sputum x [address] Chest 01/26/17 shows no change when compared to 01/20/17 (please see full reports). 6). Hx Diffuse Rash: resolved 7). Hx Pancreatic Lesion: F/U CT Abdomen in 6 months; GI seen during hospitalization. 8). 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 Aspirin 9). Hx Constipation: resolved 10). Anemia likely secondary to Chronic Disease: stable 11). Hx Hypothyroidism: levothyroxine 88mcg PO q AM; f/u thyroid studies; thyroid US unremarkable 12). Hx Vertigo: resolved and was likely secondary to the Minocycline that patient was on at the time of admission and once discontinued, this issue resolved and has not recurred 13). Hx Diarrhea: resolved 14). Hx Bilateral Lower Leg Edema: duplex are negative, much improved and now mild non-pitting edema involving the ankles 15). Hx Elevated LFTs: monitor; hepatitis negative 16). History of hypothyroidism. c/w Synthroid 88mcg PO AM, TSH: 9.9 on 01/26/17, repeat thyroid panel: TSH: 7.32, Free t4: 1.51, Total T3: 0.584, T3 3rd generation 7.32, consult: endocrinology 17) Prophylactic measure: Lovenox 40mg subqdaily
[2017-02-25 13:20] LABS: SM ANTIBODY <1.0 NEG AI (<1.0 NEGATIVE)
[2017-02-26 00:53] LABS: RETICULIN AB IGA NEGATIVE (NEGATIVE)
[2017-02-26] MEDS: Levothyroxine 112 MCG TAB PO SCH (05:55)
[2017-02-26] MEDS: Aztreonam 2 GM in Sodium Chloride 0.9% 100 ML IVPB SCH ×3 (05:56→20:59)
--- NOTE | 2017-02-26 07:17 | CP.PCM.PN ---
<Loan Reyna - Last Filed: 02/26/17 07:29> Subjective - Date & Time of Evaluation Date of Evaluation: 02/26/17 Time of Evaluation: 07:14 - Subjective Subjective: Patient seen and examined at bedside. Patient denied any acute events overnight. Patient states he is still having right leg pain and some mild chest pain. Patient also admits to a dry feeling in his throat and mouth, saying it hurts his throat sometimes when he is swallowing food. Patient denied any navarro/sob /abd pain/f/c/n/v/d. I explained to the patient his diagnosis of Sjogren syndrome and how this may cause dry mouth and eyes. Objective - Vital Signs/Intake and Output Vital Signs (last 24 hours): Temp Pulse Resp BP Pulse Ox 99.6 F 85 20 127/66 98 02/26/17 00:30 02/26/17 00:30 02/26/17 00:30 02/26/17 00:00 02/26/17 00:30 Intake and Output: 02/26/17 02/26/17 06:59 18:59 Intake Total 580 Output Total 650 Balance -70 - Medications Medications: Current Medications Acetaminophen (Tylenol 325mg Tab) 650 mg PO Q6 PRN PRN Reason: Fever >100.4 F Last Admin: 02/15/17 10:17 Dose: 650 mg Amiodarone HCl (Cordarone) 200 mg PO BID [facility] Last Admin: 02/25/17 17:40 Dose: 200 mg Enoxaparin Sodium (Lovenox) 40 mg SC DAILY [facility] Last Admin: 02/25/17 09:55 Dose: 40 mg Guaifenesin (Mucinex La) 600 mg PO BID [facility] Last Admin: 02/25/17 17:39 Dose: 600 mg Aztreonam 2 gm/ Sodium (Chloride) 100 mls @ 200 mls/hr IVPB Q8H [facility] Last Admin: 02/26/17 05:56 Dose: 200 mls/hr Ibuprofen (Motrin Tab) 600 mg PO TID PRN PRN Reason: fever Last Admin: 02/23/17 22:10 Dose: 600 mg Ipratropium [place] (Atrovent Hfa) 2 puff IH RQ6 PRN PRN Reason: Shortness of Breath Lactic Acid (Lac-Hydrin 12% Lotion (225 G)) 225 gm EXT Q1H PRN PRN Reason: Dry skin Last Admin: 02/04/17 18:34 Dose: 1 applic Levothyroxine Sodium (Synthroid) 112 mcg PO DAILY@0630 MARY ELLEN Last Admin: 02/26/17 05:55 Dose: 112 mcg Nystatin (Nystatin Oral Susp) 5 ml PO QID MARY ELLEN Ondansetron HCl (Zofran Inj) 4 mg IVP Q6H PRN PRN Reason: nausea Last Admin: 02/14/17 18:46 Dose: 4 mg Promethazine HCl/Codeine (Phenergan/Codeine Oral Syrup) 5 ml PO Q4 PRN PRN Reason: Cough Last Admin: 02/14/17 18:15 Dose: 5 ml Tramadol HCl (Ultram) 25 mg PO BID PRN PRN Reason: Pain, moderate (4-7) Last Admin: 02/19/17 18:11 Dose: 25 mg - Labs Labs: 02/25/17 06:18 02/25/17 06:18 PT 13.2 SECONDS (9.7-12.2) H 01/20/17 19:37 INR 1.2 01/20/17 19:37 APTT 32 SECONDS (21-34) 01/20/17 19:37 Assessment and Plan - Assessment and Plan (Free Text) Assessment: Sjogren Syndrome * SS-a and SS-B positive * Dry mouth with sore throat * F/U CT neck soft tissue with and without contrast * Will need outpatient followup with Rheum through [facility] Leukocytosis * Bronch - Aristeo and Coag negative staph from Bronchial washing, mycobacterium culture negative * blood culture 02/19/17: negative 48 hours * 02/21/17: switched antibiotics from cefepime to aztreonam * 02/25/17: WBC count down trending * Blood culture - 02/12 - negative x3 days * 02/13 - neg x 3 days * 02/21 - neg x3 days * Urine Culture - 02/12 - negative * 02/23 - negative * Sputum culture - 02/12 - Hafnia alvei * f/u repeat sputum culture (02/24) * Previous Sputum Culture - Raoultella Planticola, Enterobacter Cloacae * Abx started as per Dr. Calzada, Cefepime 2 gm IV q8h * MRI Thoracic and Cervical Spine 02/12/17 did not reveal any abscesses but did now show abnormal signal on the vertebrae suspicious for hematologic abnormality * Gallium scan part 1 on 02/15 and part 2 on 02/16 after magnesium citrate prep - Mild patchy increased radiotracer uptake at the lower lung lobes more on the right (Nonspecific and may represent infectious or inflammatory pneumonitis). Diffuse linear/ tubular shaped increased radiotracer uptake at the left abdomen suspicious for uptake in the left colon. Correlate clinically for colitis. * Abdominal pain (02/18) * Repeat CT abd/pelvis: Bibasal or consolidation. Small bulla/bleb in the right lower lobe. No change. Right renal cyst with a calcification noted in the wall of the cyst. No stones are seen in the left kidney. Small hiatal hernia. Very small pleural effusions bilaterally. Small inguinal hernias containing fat bilaterally. * lipase - 159 * amylase - 103 * f/u stool C. diff, serology negative * f/u IR consult for FNA lung bx * F/U Repeat Chest CT * Neurology consult ([facility]) does not recommend LP at this time due to lack of neuro symptoms * Procal: 0.58 * urine culture negative Summary of Microbiology: * Aspergillus: negative * Q fever: negative * Hepatitis Panel: negative * Blood parasites: negative * Hepatitis panel: negative * Coccidiodes F-Ag Ab/TP-Ag Ab: negative * C. difficle toxin: negative X7 * Quantaferon:L indeterminate * S. pneumoniae Ag: negative * Group B Strep Antigen: not required * N. meningitis: not required * Urine legionella: negative * HIV: negative X3 * Brucella: negative * RPR: nonreactive Summary of Positive Microbiology--which have all been treated during hospitalization. 01/01: Blood: Coag neg Staph (1/2) bottles; 01/02 Blood cultures negative X2 5 days 01/03; 01/06; 01/07 Mycobacterial Culture: no fast acid bacilli identified; no Mycobacterium isolated for 6 weeks X3 Bone Marrow: no acid fast isolated 01/26: Sputum: Yeast 01/30: Bronchial washings: aristeo albicans and coag negative Stap 02/07: Sputum: Raoultella Planticola and Enterobacter Cloacae 02/10: Bone Marrow Staphyloccous Sp Coag 02/12: Sputum: Hafnia Alvei Myalgia * New onset b/l upper extremity pain when he flexes the arms, more on the right than the left assoc with headache * significantly decreased muscle strength bilaterally in the upper extremity * Last head CT/Brain MRI was unremarkable * MRI of the spine - No epidural abscess. Bone marrow signaling abnormal. Consider hematopoietic process * Total CK - 50 * ESR - 134 * CRP - >15 * LDH - 719 Right knee pain and leg pain * knee XR - arthritis * venous duplex RLE: no evidence of DVT Fever * Heme ([place]) - * Bone Marrow Bx - no abnormal myeloid maturation or increased blasts, no lymphoproliferative disorder or plasma cell dyscrasia (on first sample); tiny normocellular marrow particle showing trilineage hematopoesis without evidence of acute leukemia, metastatic neoplasm, plasma cell neoplasm, or lymphoma; however sample was suboptimal containing mostly clot and very little marrow sample (on second sample) * Anerobic culture negative * Autoimmune Workup - F/U * dsDNA - <1 * Anti-Montelongo - <1 * CHAVA - 1:160, Speckled H, + ANA6 * C-ANCA - negative * P-ANCA - negative * MPO Ab - <1 * PR3 - <1 * Autoimmune Workup #2 (02/21) * RF + * CHAVA + / CHAVA titer: 1:320 * Speckled CHAVA * SS-A and SS-B + --> Sjogren Syndrome * Actin IgG + @85 (seen in pts with AIH type 1) * Thyroperoxidase + @54 * Scl-70 negative * Ribosomal P Prot Ab negative * Antimitochondrial Ab negative * Complement C3 134 and C4 19 * F/U Striated muscle Ab, Myocardial Ab titer, Reticulin Ab titer, Reticulin IgA Ab, Anti-parietal cell Ab * lupus studies (02/21): negative * Aspergillus - negative * Afebrile since Tmax 102 on 02/14 * Abx cont per Dr. Zheng greenfield. History of hypothyroidism * Synthroid 88mcg PO daily * TSH 9.9 on 01/26 * Repeat thyroid panel showed TSH 7.32, free T4 1.51, Total T3 0.584, and T3 3rd Gen 7.32 on 02/15 * Thyroid ultrasound unremarkable * Consulted Endocrinology (02/17) (Dr. Mccormick) - levothyroxine inc to 112 mcg PO QD Vtach * Stable * Patient Had Rapid called on 01/26 for Vtach - was asx * Cath on 01/27 - Normal coronaries, normal EF by echo * Started on Metoprolol 25 Q6H * Echo - EF 65-70 * Stopped therapeutic Lovenox * 01/30 Another episode of Asx Vtach (13 beats), Cards ([facility]) started Cordarone 200mg PO BID Hx of TB PPX * On INH at admission, no longer on anything * Sputum x 3 negative * Repeat CT Chest 01/26/17 shows no change when compared to 01/20/17 Hx of hyponatremia * resolved * monitor Hx pancreatic lesion * F/u CT abdomen in 6 mon Superficial Thrombophlebitis * Right Cephalic Vein Thrombosis as per UE Duplex. Aspirin Hx Elevated LFTs * resolving <Ian Gresham - Last Filed: 02/26/17 17:19> Objective - Vital Signs/Intake and Output Vital Signs (last 24 hours): Temp Pulse Resp BP Pulse Ox 98.9 F 78 20 123/63 100 02/26/17 16:43 02/26/17 16:43 02/26/17 16:43 02/26/17 16:43 02/26/17 16:43 Intake and Output: 02/26/17 02/26/17 06:59 18:59 Intake Total 580 600 Output Total 650 Balance -70 600 - Medications Medications: Current Medications Acetaminophen (Tylenol 325mg Tab) 650 mg PO Q6 PRN PRN Reason: Fever >100.4 F Last Admin: 02/15/17 10:17 Dose: 650 mg Amiodarone HCl (Cordarone) 200 mg PO BID [facility] Last Admin: 02/26/17 17:11 Dose: 200 mg Enoxaparin Sodium (Lovenox) 40 mg SC DAILY [facility] Last Admin: 02/26/17 09:12 Dose: 40 mg Guaifenesin (Mucinex La) 600 mg PO BID [facility] Last Admin: 02/26/17 17:11 Dose: 600 mg Aztreonam 2 gm/ Sodium (Chloride) 100 mls @ 200 mls/hr IVPB Q8H [facility] Last Admin: 02/26/17 13:06 Dose: 200 mls/hr Ibuprofen (Motrin Tab) 600 mg PO TID PRN PRN Reason: fever Last Admin: 02/23/17 22:10 Dose: 600 mg Ipratropium [place] (Atrovent Hfa) 2 puff IH RQ6 PRN PRN Reason: Shortness of Breath Lactic Acid (Lac-Hydrin 12% Lotion (225 G)) 225 gm EXT Q1H PRN PRN Reason: Dry skin Last Admin: 02/04/17 18:34 Dose: 1 applic Levothyroxine Sodium (Synthroid) 112 mcg PO DAILY@0630 [facility] Last Admin: 02/26/17 05:55 Dose: 112 mcg Nystatin (Nystatin Oral Susp) 5 ml PO QID MARY ELLEN Last Admin: 02/26/17 17:11 Dose: 5 ml Ondansetron HCl (Zofran Inj) 4 mg IVP Q6H PRN PRN Reason: nausea Last Admin: 02/14/17 18:46 Dose: 4 mg Promethazine HCl/Codeine (Phenergan/Codeine Oral Syrup) 5 ml PO Q4 PRN PRN Reason: Cough Last Admin: 02/14/17 18:15 Dose: 5 ml Tramadol HCl (Ultram) 25 mg PO BID PRN PRN Reason: Pain, moderate (4-7) Last Admin: 02/19/17 18:11 Dose: 25 mg - Labs Labs: 02/26/17 07:16 02/26/17 07:16 PT 13.2 SECONDS (9.7-12.2) H 01/20/17 19:37 INR 1.2 01/20/17 19:37 APTT 32 SECONDS (21-34) 01/20/17 19:37 Attending/Attestation - Attestation I have personally seen and examined this patient.: Yes I have fully participated in the care of the patient.: Yes I have reviewed all pertinent clinical information, including history, physical exam and plan: Yes Notes (Text): 02/26/17 17:17 Hospitalist Progress Note Patient was seen and examined on 02/26/17 at 4:25 PM Upon FULL ROS Better appetite today NO other complaints upon FULL ROS Exam: General: AAOx3, NAD HEENT: NCA, EOMI, PERRLA, (+) Bilateral Posterior Game Agent Lymphadenopathy in the inferior aspects, NO pharyngeal erythema/exudate, Mucous Membranes are moist, Nasal Turbinates are nonedematous/nonerythematous Cardio: NS1 and NS2, NO M/R/G Respiratory: Faint inspiratory bibasilar inspiratory crackles GI: BSx4, Soft, NT, ND, NO HSM, NO guarding/rebound tenderness Ext: mild nonpitting edema involving the bilateral ankles, Pulses are strong and equal, Capillary Refill is 2 seconds Neuro: CN II through XII are grossly intact Assessment and Plan: 1). Leukocytosis; Fever of Unknown Origin * Pulmonary (Dr. Mckeon) on board * Infectious Disease (Dr. Calzada/Dr. Carias) on board * Heme-onc (Dr. Jennifer Alexandre) on board * s/p bronchoscopy/bronchial washing for Thursday01/30/17 and this was performed: culture showed Aristeo albicans and Coag Neg Staph and Sputum AFB is negative--- >completed Diflucan 200 mg IV on 02/03/17 and treated through 02/13/17. * CT scan Chest/Abdomen/Pelvis (02/03/17): largely stable findings within the chest; included septa; thickening; persistent bibasilar consolidation bronchiesctasis; lymphadenopathy including mediastinal and axillary lymph nodes ; cervical lymphadenopathy present * Sputum Culture 02/07/17 showed Raoultella planticola and Enterobacter cloacae and patient was on Ceftriaxone from 02/03/17 through 02/13/17. * S/P Bone Marrow Bx 02/10/17 and Bone Marrow Cultures are currently negative--> . F/U Bone Marrow Bx Pathology * Bone Marrow Bx-no abnormal myeloid maturation or increased blasts, no lymphoproliferative disorder or plasma cell dyscrasia (on first sampl): tiny normocellular marrow particle showing trilinerage hematopoesis without evidence of acute leukemia, metastatic neoplasm, plasma cell neoplasm, or lymphoma; however suboptimal containing mostly clot and very little marrow sample * f/u with heme-onc * Sputum Culture 02/12/17 showed Hafnia alvei-->Aztrenoam 2gm IV Q 8 hours ( restarted since 02/21/17) * D/C Maxipime 2gm IV Q 8 hours (active 02/19/17) * MRI Thoracic and Cervical Spine 02/12/17 did not reveal any abscesses but did now show abnormal signal on the vertebrae suspicious for hematologic abnormality * Patient had Gallium Scan Part #1 on 02/15/17 and Part #2 02/16/17 * Mild patchy increased radiotracer uptake in the lower lobes more on the right (nonspecific and may represent infectious or inflammatory pneumonitis. Diffuse liner/tubular shaped increase radiotracer uptake at the left abdomen suspicious for uptake in the left colon. Correlate clinically for colitis * CT Abdomen/Pelvis w PO contrast (02/18/17): bibasal or consolidation. Small bulla/bleb in right lower lobe. No change. Right renal cyst with a calcification in the wall of the cyst. No stones are seen in the left kidney. Small hiatal hernia. Very small pleural effusions bilaterally. Small inguinal hernia containing fat bilaterally * I spoke with IR Dr. Rosa Jacobson (02/25/17): Dr. Jacobson reveiwed prior CTs and unfortunately does not have a seeable area for FNA biopsy. He recommended repeat CT Chest and this has been ordered * CT Soft Neck has also been ordered for 02/26/17 along with the repeat CT Chest Patient likely has Sjogren's Syndrome considering the results of autoimmune testing. He will need outpatient follow up with Rheumatology through [facility]. Microbiology: * Aspergillus: negative * Q fever: negative * Hepatitis Panel: negative * Blood parasites: negative * Hepatitis panel: negative * Coccidiodes F-Ag Ab/TP-Ag Ab: negative * C. difficle toxin: negative X7 * Quantaferon:L indeterminate * S. pneumoniae Ag: negative * Group B Strep Antigen: not required * N. meningitis: not required * Urine legionella: negative * HIV: negative X3 * Brucella: negative * RPR: nonreactive Positive Microbiology--which have all been treated during hospitalization. 01/01: Blood: Coag neg Staph (1/2) bottles; 01/02 Blood cultures negative X2 5 days 01/03; 01/06; 01/07 Mycobacterial Culture: no fast acid bacilli identified; no Mycobacterium isolated for 6 weeks X3 Bone Marrow: no acid fast isolated 01/26: Sputum: Yeast 01/30: Bronchial washings: aristeo albicans and coag negative Stap 02/07: Sputum: Raoultella Planticola and Enterobacter Cloacae 02/10: Bone Marrow Staphyloccous Sp Coag 02/12: Sputum: Hafnia Alvei Latest 02/19: Blood and urine are negative 02/21: Blood and urine f/u Immunology: * CHAVA: positive; 1:160, speckled, ANCA: negative, Proteinase 3: <1.0, Myeloperoxidase <1.0, Montelongo Ab <1.0 UDS: negative 2). Hx Elevated Troponin: likely secondary to episode of V Tach. Cardiac Cath performed by Dr. Pryor 01/27/17 showed clean coronaries. Therapeutic Lovenox was discontinued. Patient is currently on telemetry. Amiodarone 200mg PO bid 3). Hyponatremia: Monitor 4). Hx Bacteremia: repeat cultures have been negative to date. Latest Blood cultures from 02/13/17 show no growth after 5 days and from 02/12/17 no growth for 5 days Blood cultures 02/19/17: no growth thus far Urine culture (02/19/17): no growth, Procalcitonin (02/19/17): 0.58 Blood cultures 02/21/17: pending 5). Hx of TB Prophylaxis: he was on INH upon admission but currently not on anything given transaminitis. Sputum x [address] Chest 01/26/17 shows no change when compared to 01/20/17 (please see full reports). 6). Hx Diffuse Rash: resolved 7). Hx Pancreatic Lesion: F/U CT Abdomen in 6 months; GI seen during hospitalization. 8). 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 Aspirin 9). Hx Constipation: resolved 10). Anemia likely secondary to Chronic Disease: stable 11). Hx Hypothyroidism: levothyroxine 88mcg PO q AM; f/u thyroid studies; thyroid US unremarkable 12). Hx Vertigo: resolved and was likely secondary to the Minocycline that patient was on at the time of admission and once discontinued, this issue resolved and has not recurred 13). Hx Diarrhea: resolved 14). Hx Bilateral Lower Leg Edema: duplex are negative, much improved and now mild non-pitting edema involving the ankles 15). Hx Elevated LFTs: monitor; hepatitis negative 16). History of hypothyroidism. c/w Synthroid 88mcg PO AM, TSH: 9.9 on 01/26/17, repeat thyroid panel: TSH: 7.32, Free t4: 1.51, Total T3: 0.584, T3 3rd generation 7.32, consult: endocrinology 17) Prophylactic measure: Lovenox 40mg subqdaily Repeat CT Chest 02/26/17 findings noted and we will speak with IR to see if there is any area that is amenable to FNA Biopsy CT Soft Tissue Neck 02/26/17 and further workup as an outpatient. IF patient no longer has fever overnight into tomorrow, then I will speak with ID and Hematology for possible D/C and further managment as an outpatient. Ian Gresham D.O.
[2017-02-26 07:28] LABS: BASO # 0.1 K/uL (0.0-0.2); BASO % 0.2 % (0.0-2.0); EOS # 0.4 K/uL (0.0-0.7); EOS % 1.7 % (0.0-4.0); HEMATOCRIT 27.4 % (35.0-51.0); LYMPH # 2.2 K/uL (1.0-4.3); LYMPH % 8.9 % (20.0-40.0); MEAN CELL VOLUME 83.2 fL (80.0-94.0); MEAN CORPUSCULAR HEMOGLOBIN 26.9 pg (27.0-31.0); MEAN CORPUSCULAR HGB CONC 32.3 g/dL (33.0-37.0); MEAN PLATELET VOLUME 7.9 fL (7.2-11.7); MONO # 0.5 K/uL (0.0-0.8); MONO % 2.2 % (0.0-10.0); PLATELET COUNT 563 K/uL (130-400); RED CELL DISTRIBUTION WIDTH 18.4 % (11.5-14.5); WHITE BLOOD COUNT 24.5 K/uL (4.8-10.8)
[2017-02-26 08:11] LABS: CHLORIDE 101 mmol/L (98-107)
[2017-02-26 08:12] LABS: AST/SGOT 51 U/L (17-59); BILIRUBIN,TOTAL 0.4 mg/dL (0.2-1.3); CARBON DIOXIDE 25 mmol/L (22-30); GFR AFRICAN-AMERICAN > 60; POTASSIUM 3.9 mmol/L (3.6-5.2); SODIUM 131 mmol/L (132-148)
[2017-02-26 08:13] LABS: ALB/GLOB RATIO 0.5 (1.0-2.1); ALKALINE PHOSPHATASE 135 U/L (38-126); ALT/SGPT 49 U/L (21-72); BLOOD UREA NITROGEN 17 mg/dL (9-20); GLUCOSE,RANDOM 76 mg/dL (75-110); TOTAL PROTEIN 7.6 g/dL (6.3-8.3)
[2017-02-26 08:14] LABS: CALCIUM 7.5 mg/dl (8.6-10.4)
[2017-02-26 08:54] LABS: BASOPHIL 1 % (0-2); NEUTROPHIL 86 % (50-75); TOTAL CELLS COUNTED 100
[2017-02-26] MEDS: Enoxaparin 40 mg Syringe SC SCH (09:12)
[2017-02-26] MEDS: Nystatin 100,000 Units/ml Oral Susp 5 ml UD PO SCH ×4 (09:12→20:59)
[2017-02-26] MEDS: guaiFENesin 600 mg ER Tab PO SCH ×2 (09:12→17:11)
[2017-02-26] MEDS ORDERED: Iodixanol 320 MG/ML 100 ML BOTTLE IV ONE (09:45)
--- NOTE | 2017-02-26 11:02 | CT ---
PROCEDURE: CT NECK WITH CONTRAST HISTORY: Throat pain COMPARISON: None TECHNIQUE: CT of the neck with intravenous contrast. Coronal and sagittal reformats generated. Intravenous contrast dose: 100 mL Visipaque Radiation dose: DLP 528.50 mGy-cm This CT exam was performed using one or more of the following dose reduction techniques: Automated exposure control, adjustment of the mA and/or kV according to patient size, and/or use of iterative reconstruction technique. FINDINGS: NASOPHARYNX: Unremarkable. SUPRAHYOID NECK: The oropharynx, oral cavity, parapharyngeal space and retropharyngeal space are normal in appearance. INFRAHYOID NECK: The larynx, hypopharynx, and supraglottic space are normal in appearance. Vocal cords intact. There is apparent mild circumferential thickening of the visualized thoracic esophageal wall. MASS: None. GLANDS: Parotid and submandibular glands unremarkable. Normal size thyroid gland, without nodule. LYMPH NODES: There is mild asymmetric prominence of the left submandibular and upper jugular chain lymph nodes. No pathologic lymphadenopathy. CERVICAL SPINE: No fracture or focal lesion. VASCULAR STRUCTURES: Unremarkable. OTHER FINDINGS: There are retention cysts/ polyps in the maxillary sinuses. IMPRESSION: No evidence of mass, abnormal enhancement or pathologic lymphadenopathy. Asymmetric prominence of the left submandibular and upper jugular chain lymph nodes which may be reactive, infectious or inflammatory in etiology. Clinical follow-up is advised. Apparent mild circumferential mural thickening of the visualized upper thoracic esophageal wall is nonspecific and could represent infectious/inflammatory esophagitis. If clinically indicated, correlation with barium swallow examination or EGD may be performed
--- NOTE | 2017-02-26 11:23 | CT ---
CT chest with IV contrast Indication: Abnormal chest x-ray Technique: Contiguous axial images were obtained through the chest with intravenous contrast enhancement. Sagittal and coronal reconstructions were generated and reviewed. This CT exam was performed using 1 or more of the falling dose reduction techniques: Automated exposure control, adjustment of the MAA and/or kV according to patient size, and/or use of iterative reconstruction technique. IV Contrast: 100 mL Visipaque Radiation dose (DLP): 336.19 MGy-cm. Comparison: CT chest, abdomen, pelvis performed 02/03/17 Findings: Visualized portions of the inferior thyroid gland appear unremarkable. The mediastinal and hilar vascular structures appear within normal limits. Sub cm prevascular and mediastinal lymph nodes. Cardiomegaly. Small pericardial effusion. Extensive bilateral lower lobe fibrotic changes. Stable to slightly increased bilateral lower lobe consolidations and ground-glass opacity. Septal thickening present. Subpleural cysts. Trace bilateral pleural effusions. No pneumothorax. Limited visualization of the upper abdomen reveals hypoattenuation of the liver consistent with hepatic steatosis. No acute osseous abnormality is detected. Impression: Extensive bilateral lower lobe fibrotic changes. Stable to slightly increased bilateral lower lobe consolidations and ground-glass opacities. Septal thickening present. Subpleural cysts. Trace bilateral pleural effusions. Cardiomegaly. Small pericardial effusion. Sub cm prevascular mediastinal lymph nodes. Hepatic steatosis.
[2017-02-27 02:18] LABS: MYOCARDIAL AB IF NEGATIVE (NEGATIVE); PARIETAL CELL AB <20.0 U
[2017-02-27] MEDS: Aztreonam 2 GM in Sodium Chloride 0.9% 100 ML IVPB SCH (05:20)
[2017-02-27] MEDS: Levothyroxine 112 MCG TAB PO SCH (07:17)
[2017-02-27 08:13] LABS: BASO # 0.1 K/uL (0.0-0.2); BASO % 0.5 % (0.0-2.0); EOS # 0.3 K/uL (0.0-0.7); EOS % 1.5 % (0.0-4.0); HEMATOCRIT 27.8 % (35.0-51.0); LYMPH # 1.6 K/uL (1.0-4.3); LYMPH % 6.8 % (20.0-40.0); MEAN CELL VOLUME 83.2 fL (80.0-94.0); MEAN CORPUSCULAR HEMOGLOBIN 27.3 pg (27.0-31.0); MEAN CORPUSCULAR HGB CONC 32.9 g/dL (33.0-37.0); MEAN PLATELET VOLUME 7.9 fL (7.2-11.7); MONO # 0.5 K/uL (0.0-0.8); PLATELET COUNT 560 K/uL (130-400); RED CELL DISTRIBUTION WIDTH 18.6 % (11.5-14.5); WHITE BLOOD COUNT 22.9 K/uL (4.8-10.8)
[2017-02-27 08:49] LABS: CHLORIDE 101 mmol/L (98-107); SODIUM 131 mmol/L (132-148)
[2017-02-27 08:51] LABS: ALB/GLOB RATIO 0.5 (1.0-2.1); AST/SGOT 51 U/L (17-59); BILIRUBIN,TOTAL 0.4 mg/dL (0.2-1.3); CARBON DIOXIDE 24 mmol/L (22-30); GFR AFRICAN-AMERICAN > 60; TOTAL PROTEIN 7.7 g/dL (6.3-8.3)
[2017-02-27 08:52] LABS: ALKALINE PHOSPHATASE 128 U/L (38-126); ALT/SGPT 47 U/L (21-72); BLOOD UREA NITROGEN 15 mg/dL (9-20); CALCIUM 7.6 mg/dl (8.6-10.4); GLUCOSE,RANDOM 93 mg/dL (75-110)
[2017-02-27 09:26] LABS: EOSINOPHIL 2 % (0-4); NEUTROPHIL 94 % (50-75); TOTAL CELLS COUNTED 100
[2017-02-27] MEDS: guaiFENesin 600 mg ER Tab PO SCH ×2 (09:31→18:12)
[2017-02-27] MEDS: Enoxaparin 40 mg Syringe SC SCH (09:31)
[2017-02-27] MEDS: Nystatin 100,000 Units/ml Oral Susp 5 ml UD PO SCH (09:31)
[2017-02-27] MEDS ORDERED: Ciprofloxacin 400mg/200ml D5W 400 MG/200 ML BAG IVPB SCH (10:30)
[2017-02-27] MEDS: Micafungin 100 MG in Sodium Chloride 0.9% 100 ML IVPB SCH (14:40)
--- NOTE | 2017-02-27 18:58 | CP.PCM.PN ---
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 Leukocytosis; Fever of Unknown Origin * Pulmonary (Dr. Mckeon) on board * Infectious Disease (Dr. Calzada/Dr. Carias) on board * Heme-onc (Dr. Jennifer Alexandre) on board * s/p bronchoscopy/bronchial washing for Thursday01/30/17 and this was performed: culture showed Aristeo albicans and Coag Neg Staph and Sputum AFB is negative--- >completed Diflucan 200 mg IV on 02/03/17 and treated through 02/13/17. * CT scan Chest/Abdomen/Pelvis (02/03/17): largely stable findings within the chest; included septa; thickening; persistent bibasilar consolidation bronchiesctasis; lymphadenopathy including mediastinal and axillary lymph nodes ; cervical lymphadenopathy present * Sputum Culture 02/07/17 showed Raoultella planticola and Enterobacter cloacae and patient was on Ceftriaxone from 02/03/17 through 02/13/17. * S/P Bone Marrow Bx 02/10/17 and Bone Marrow Cultures are currently negative--> . 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 Diffuse liner/tubular shaped increase radiotracer uptake at the left abdomen suspicious for uptake in the left colon. Correlate clinically for colitis * CT Abdomen/Pelvis w PO contrast (02/18/17): bibasal or consolidation. Small bulla/bleb in right lower lobe. No change. Right renal cyst with a calcification in the wall of the cyst. No stones are seen in the left kidney. Small hiatal hernia. Very small pleural effusions bilaterally. Small inguinal hernia containing fat bilaterally * I spoke with IR Dr. Rosa Jacobson (02/25/17): Dr. Jacobson reveiwed prior CTs and unfortunately does not have a seeable area for FNA biopsy. He recommended repeat CT Chest and this has been done showing extensive bilateral lower lobe fibrotic changes, stable to slightly increased bilateral lower lobe consolidations and ground glass opacities, septal thickening present, subplueral cysts, trace bilateral plueral effusions * CT Soft Neck has also been ordered for 02/26/17 and there is NO evidence of mass , NO abnormal enhancement or pathologic lymphadenopathy, apparent mild circumferential mural thickening of the visualized upper thoracic esophageal wall is nonspecific and could represent infectious/inflammatory esophagitis * 02/27/17 patient with fever of 100.2 overnight and with Sputum Culture 02/24/17 came back positive for Klebsiella and Yeast therefore Imipenem 500 mg IV Q12H and Micofungin 100 mg IV Q24H were both started 02/27/17 Patient likely has Sjogren's Syndrome considering the results of autoimmune testing. He will need outpatient follow up with Rheumatology through [facility]. Microbiology: * Aspergillus: negative * Q fever: negative * Hepatitis Panel: negative * Blood parasites: negative * Hepatitis panel: negative * Coccidiodes F-Ag Ab/TP-Ag Ab: negative * C. difficle toxin: negative X7 * Quantaferon:L indeterminate * S. pneumoniae Ag: negative * Group B Strep Antigen: not required * N. meningitis: not required * Urine legionella: negative * HIV: negative X3 * Brucella: negative * RPR: nonreactive Positive Microbiology--which have all been treated during hospitalization. 01/01: Blood: Coag neg Staph (1/2) bottles; 01/02 Blood cultures negative X2 5 days 01/03; 01/06; 01/07 Mycobacterial Culture: no fast acid bacilli identified; no Mycobacterium isolated for 6 weeks X3 Bone Marrow: no acid fast isolated 01/26: Sputum: Yeast 01/30: Bronchial washings: aristeo albicans and coag negative Stap 02/07: Sputum: Raoultella Planticola and Enterobacter Cloacae 02/10: Bone Marrow Staphyloccous Sp Coag 02/12: Sputum: Hafnia Alvei Latest: 02/21/17 Blood Culture is negative 02/23/17 Urine Culture is negative Immunology: * CHAVA: positive; 1:160, speckled, ANCA: negative, Proteinase 3: <1.0, Myeloperoxidase <1.0, Montelongo Ab <1.0 UDS: negative 2). Hx Elevated Troponin: likely secondary to episode of V Tach. Cardiac Cath performed by Dr. Pryor 01/27/17 showed clean coronaries. Therapeutic Lovenox was discontinued. Patient is currently on telemetry. Amiodarone 200mg PO bid 3). Hyponatremia: Monitor 4). Hx Bacteremia: repeat cultures have been negative to date. Latest Blood cultures from 02/13/17 show no growth after 5 days and from 02/12/17 no growth for 5 days Blood cultures 02/19/17: no growth thus far Urine culture (02/19/17): no growth, Procalcitonin (02/19/17): 0.58 Blood cultures 02/21/17: pending 5). Hx of TB Prophylaxis: he was on INH upon admission but currently not on anything given transaminitis. Sputum x [address] Chest 01/26/17 shows no change when compared to 01/20/17 (please see full reports). 6). Hx Diffuse Rash: resolved 7). Hx Pancreatic Lesion: F/U CT Abdomen in 6 months; GI seen during hospitalization. 8). 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 Aspirin 9). Hx Constipation: resolved 10). Anemia likely secondary to Chronic Disease: stable 11). Hx Hypothyroidism: levothyroxine 88mcg PO q AM; f/u thyroid studies; thyroid US unremarkable 12). Hx Vertigo: resolved and was likely secondary to the Minocycline that patient was on at the time of admission and once discontinued, this issue resolved and has not recurred 13). Hx Diarrhea: resolved 14). Hx Bilateral Lower Leg Edema: duplex are negative, much improved and now mild non-pitting edema involving the ankles 15). Hx Elevated LFTs: monitor; hepatitis negative 16). History of hypothyroidism. c/w Synthroid 88mcg PO AM, TSH: 9.9 on 01/26/17, repeat thyroid panel: TSH: 7.32, Free t4: 1.51, Total T3: 0.584, T3 3rd generation 7.32, consult: endocrinology 17) Prophylactic measure: Lovenox 40mg subqdaily Ian Gresham D.O. Objective - Vital Signs/Intake and Output Vital Signs (last 24 hours): Temp Pulse Resp BP Pulse Ox 99.4 F 77 20 117/69 99 02/27/17 15:11 02/27/17 15:11 02/27/17 15:11 02/27/17 15:11 02/27/17 15:11 Intake and Output: 02/27/17 02/27/17 06:59 18:59 Intake Total 500 900 Output Total 300 Balance 200 900 - Medications Medications: Current Medications Acetaminophen (Tylenol 325mg Tab) 650 mg PO Q6 PRN PRN Reason: Fever >100.4 F Last Admin: 02/15/17 10:17 Dose: 650 mg Amiodarone HCl (Cordarone) 200 mg PO BID [facility] Last Admin: 02/27/17 18:12 Dose: 200 mg Amiodarone HCl (Cordarone) 200 mg PO BID [facility] Enoxaparin Sodium (Lovenox) 40 mg SC DAILY [facility] Last Admin: 02/27/17 09:31 Dose: 40 mg Guaifenesin (Mucinex La) 600 mg PO BID [facility] Last Admin: 02/27/17 18:12 Dose: 600 mg Imipenem/Cilastatin Sodium 500 (mg/ Sodium Chloride) 100 mls @ 100 mls/hr IVPB Q12 [facility] Last Admin: 02/27/17 11:24 Dose: 100 mls/hr Micafungin Sodium 100 mg/ (Sodium Chloride) 100 mls @ 100 mls/hr IVPB Q24H [facility] Last Admin: 02/27/17 14:40 Dose: 100 mls/hr Ibuprofen (Motrin Tab) 600 mg PO TID PRN PRN Reason: fever Last Admin: 02/23/17 22:10 Dose: 600 mg Ipratropium [place] (Atrovent Hfa) 2 puff IH RQ6 PRN PRN Reason: Shortness of Breath Lactic Acid (Lac-Hydrin 12% Lotion (225 G)) 225 gm EXT Q1H PRN PRN Reason: Dry skin Last Admin: 02/04/17 18:34 Dose: 1 applic Levothyroxine Sodium (Synthroid) 112 mcg PO DAILY@0630 [facility] Last Admin: 02/27/17 07:17 Dose: 112 mcg Ondansetron HCl (Zofran Inj) 4 mg IVP Q6H PRN PRN Reason: nausea Last Admin: 02/14/17 18:46 Dose: 4 mg Promethazine HCl/Codeine (Phenergan/Codeine Oral Syrup) 5 ml PO Q4 PRN PRN Reason: Cough Last Admin: 02/14/17 18:15 Dose: 5 ml - Labs Labs: 02/27/17 08:01 02/27/17 08:01 PT 13.2 SECONDS (9.7-12.2) H 01/20/17 19:37 INR 1.2 01/20/17 19:37 APTT 32 SECONDS (21-34) 01/20/17 19:37
--- NOTE | 2017-02-27 21:51 | CP.PCM.PN ---
Subjective - Date & Time of Evaluation Date of Evaluation: 02/27/17 Time of Evaluation: 05:00 - Subjective Subjective: dictated Objective - Vital Signs/Intake and Output Vital Signs (last 24 hours): Temp Pulse Resp BP Pulse Ox 99.4 F 77 20 117/69 99 02/27/17 15:11 02/27/17 15:11 02/27/17 15:11 02/27/17 15:11 02/27/17 15:11 Intake and Output: 02/27/17 02/28/17 18:59 06:59 Intake Total 900 Balance 900 - Medications Medications: Current Medications Acetaminophen (Tylenol 325mg Tab) 650 mg PO Q6 PRN PRN Reason: Fever >100.4 F Last Admin: 02/15/17 10:17 Dose: 650 mg Amiodarone HCl (Cordarone) 200 mg PO BID [facility] Last Admin: 02/27/17 18:12 Dose: 200 mg Amiodarone HCl (Cordarone) 200 mg PO BID [facility] Enoxaparin Sodium (Lovenox) 40 mg SC DAILY [facility] Last Admin: 02/27/17 09:31 Dose: 40 mg Guaifenesin (Mucinex La) 600 mg PO BID [facility] Last Admin: 02/27/17 18:12 Dose: 600 mg Imipenem/Cilastatin Sodium 500 (mg/ Sodium Chloride) 100 mls @ 100 mls/hr IVPB Q12 [facility] Last Admin: 02/27/17 11:24 Dose: 100 mls/hr Micafungin Sodium 100 mg/ (Sodium Chloride) 100 mls @ 100 mls/hr IVPB Q24H [facility] Last Admin: 02/27/17 14:40 Dose: 100 mls/hr Ibuprofen (Motrin Tab) 600 mg PO TID PRN PRN Reason: fever Last Admin: 02/23/17 22:10 Dose: 600 mg Ipratropium [place] (Atrovent Hfa) 2 puff IH RQ6 PRN PRN Reason: Shortness of Breath Lactic Acid (Lac-Hydrin 12% Lotion (225 G)) 225 gm EXT Q1H PRN PRN Reason: Dry skin Last Admin: 02/04/17 18:34 Dose: 1 applic Levothyroxine Sodium (Synthroid) 112 mcg PO DAILY@0630 [facility] Last Admin: 02/27/17 07:17 Dose: 112 mcg Ondansetron HCl (Zofran Inj) 4 mg IVP Q6H PRN PRN Reason: nausea Last Admin: 02/14/17 18:46 Dose: 4 mg Promethazine HCl/Codeine (Phenergan/Codeine Oral Syrup) 5 ml PO Q4 PRN PRN Reason: Cough Last Admin: 02/14/17 18:15 Dose: 5 ml - Labs Labs: 02/27/17 08:01 02/27/17 08:01 PT 13.2 SECONDS (9.7-12.2) H 01/20/17 19:37 INR 1.2 01/20/17 19:37 APTT 32 SECONDS (21-34) 01/20/17 19:37 Assessment and Plan (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
--- NOTE | 2017-02-28 03:23 | PN ---
SUBJECTIVE: The patient is feeling better. He is afebrile today, and he remains on imipenem as well as Mycamine. PHYSICAL EXAMINATION: VITAL SIGNS: Pulse is 72, blood pressure 117/69, respirations are 20. HEENT: Head is atraumatic and normocephalic. Pupils are reacting to light. NECK: Supple. LUNGS: Still have some crackles, but he is breathing easier. HEART: S1 and S2 is regular. ABDOMEN: Soft and nontender. No guarding and no rigidity present. LABORATORY DATA: His sputum came out again with Klebsiella which is again under gram-negative and yeast species. I did receive the culture report yesterday that his AFB is negative and his labs show white count is 22.9, hemoglobin 9.1, hematocrit 27.8, platelet count is 560, and neutrophils are 94%. ASSESSMENT AND PLAN: At this time, we have again started these antibiotics, he also was having some dysphagia, soft tissue neck x-ray was done and may be he did have yeast infection after having so many antibiotic doses for several weeks and neck showed no evidence of mass, abnormal enhancement of pathological lymphadenopathy, asymmetrical prominence of left submandibular and upper chain lymph nodes, which may be reactive. Apparent micro-circumferential mural thickening of the upper thoracic esophageus could represent infectious or inflammatory esophagitis, if clinically indicated correlate with barium or an EGD to be performed, but at this time, we are giving him anyway antifungal treatment and he is also on Klebsiella. Kofi Carias MD
[2017-02-28] MEDS: Levothyroxine 112 MCG TAB PO SCH (05:45)
[2017-02-28 07:19] LABS: BASO # 0.1 K/uL (0.0-0.2); BASO % 0.3 % (0.0-2.0); EOS # 0.5 K/uL (0.0-0.7); EOS % 2.3 % (0.0-4.0); HEMATOCRIT 28.6 % (35.0-51.0); LYMPH # 1.7 K/uL (1.0-4.3); LYMPH % 7.2 % (20.0-40.0); MEAN CELL VOLUME 83.6 fL (80.0-94.0); MEAN CORPUSCULAR HEMOGLOBIN 27.3 pg (27.0-31.0); MEAN CORPUSCULAR HGB CONC 32.7 g/dL (33.0-37.0); MEAN PLATELET VOLUME 7.7 fL (7.2-11.7); MONO # 0.4 K/uL (0.0-0.8); MONO % 1.8 % (0.0-10.0); PLATELET COUNT 557 K/uL (130-400); RED CELL DISTRIBUTION WIDTH 18.5 % (11.5-14.5); WHITE BLOOD COUNT 23.3 K/uL (4.8-10.8)
[2017-02-28 07:40] LABS: ALB/GLOB RATIO 0.5 (1.0-2.1); ALKALINE PHOSPHATASE 154 U/L (38-126); ALT/SGPT 54 U/L (21-72); AST/SGOT 54 U/L (17-59); BILIRUBIN,TOTAL 0.3 mg/dL (0.2-1.3); BLOOD UREA NITROGEN 17 mg/dL (9-20); CALCIUM 8.1 mg/dl (8.6-10.4); CARBON DIOXIDE 26 mmol/L (22-30); CHLORIDE 99 mmol/L (98-107); GFR AFRICAN-AMERICAN > 60; GLUCOSE,RANDOM 118 mg/dL (75-110); POTASSIUM 3.6 mmol/L (3.6-5.2); SODIUM 134 mmol/L (132-148); TOTAL PROTEIN 7.8 g/dL (6.3-8.3)
[2017-02-28 09:10] LABS: NEUTROPHIL 91 % (50-75); TOTAL CELLS COUNTED 100
[2017-02-28 09:11] LABS: LARGE PLATELETS PRESENT
[2017-02-28 09:12] LABS: GIANT PLATELETS PRESENT
[2017-02-28] MEDS: guaiFENesin 600 mg ER Tab PO SCH ×2 (09:22→17:58)
[2017-02-28] MEDS: Enoxaparin 40 mg Syringe SC SCH (09:22)
--- NOTE | 2017-02-28 10:02 | CP.PCM.PN ---
Subjective - Date & Time of Evaluation Date of Evaluation: 02/28/17 Time of Evaluation: 09:45 - Subjective Subjective: Hospitalist Progress Note Patient was seen and examined on 02/28/17 at 9:45 AM Upon FULL ROS Cough dry and at times productive of white material Still with dry throat and dry skin Occasional joint pain that comes and goes in the shoulders [place] like he had a fever at night (review of vitals indicates that he did) Moving his bowels: no diarrhea NO burning/pain with urination NO n/v NO burning/pain with urination NO other complaints upon FULL ROS Exam: General: AAOx3, NAD HEENT: NCA, EOMI, PERRLA, (+) Bilateral Posterior [place] Picker Lymphadenopathy in the inferior aspects, NO pharyngeal erythema/exudate, Mucous Membranes are moist, Nasal Turbinates are nonedematous/nonerythematous Cardio: NS1 and NS2, NO M/R/G Respiratory: Faint inspiratory bibasilar inspiratory crackles GI: BSx4, Soft, NT, ND, NO HSM, NO guarding/rebound tenderness Ext: mild nonpitting edema involving the bilateral ankles, Pulses are strong and equal, Capillary Refill is 2 seconds Neuro: CN II through XII are grossly intact Assessment and Plan: 1). Leukocytosis; Fever of Unknown Origin * Pulmonary (Dr. Mckeon) on board * Infectious Disease (Dr. Calzada/Dr. Carias) on board * Heme-onc (Dr. Jennifer Alexandre) on board * s/p bronchoscopy/bronchial washing for Thursday01/30/17 and this was performed: culture showed Aristeo albicans and Coag Neg Staph and Sputum AFB is negative--- >completed Diflucan 200 mg IV on 02/03/17 and treated through 02/13/17. * CT scan Chest/Abdomen/Pelvis (02/03/17): largely stable findings within the chest; included septa; thickening; persistent bibasilar consolidation bronchiesctasis; lymphadenopathy including mediastinal and axillary lymph nodes ; cervical lymphadenopathy present * Sputum Culture 02/07/17 showed Raoultella planticola and Enterobacter cloacae and patient was on Ceftriaxone from 02/03/17 through 02/13/17. * S/P Bone Marrow Bx 02/10/17 and Bone Marrow Cultures are currently negative--> . 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 Diffuse liner/tubular shaped increase radiotracer uptake at the left abdomen suspicious for uptake in the left colon. Correlate clinically for colitis * CT Abdomen/Pelvis w PO contrast (02/18/17): bibasal or consolidation. Small bulla/bleb in right lower lobe. No change. Right renal cyst with a calcification in the wall of the cyst. No stones are seen in the left kidney. Small hiatal hernia. Very small pleural effusions bilaterally. Small inguinal hernia containing fat bilaterally * I spoke with IR Dr. Rosa Jacobson (02/25/17): Dr. Jacobson reveiwed prior CTs and unfortunately does not have a seeable area for FNA biopsy. He recommended repeat CT Chest and this has been done showing extensive bilateral lower lobe fibrotic changes, stable to slightly increased bilateral lower lobe consolidations and ground glass opacities, septal thickening present, subplueral cysts, trace bilateral plueral effusions * CT Soft Neck has also been ordered for 02/26/17 and there is NO evidence of mass , NO abnormal enhancement or pathologic lymphadenopathy, apparent mild circumferential mural thickening of the visualized upper thoracic esophageal wall is nonspecific and could represent infectious/inflammatory esophagitis * 02/27/17 patient with fever of 100.2 overnight and with Sputum Culture 02/24/17 came back positive for Klebsiella and Yeast therefore Imipenem 500 mg IV Q12H and Micofungin 100 mg IV Q24H were both started 02/27/17 Patient likely has Sjogren's Syndrome considering the results of autoimmune testing. He will need outpatient follow up with Rheumatology through [facility]. Another possibility for this patient is Still's Disease Microbiology: * Aspergillus: negative * Q fever: negative * Hepatitis Panel: negative * Blood parasites: negative * Hepatitis panel: negative * Coccidiodes F-Ag Ab/TP-Ag Ab: negative * C. difficle toxin: negative X7 * Quantaferon:L indeterminate * S. pneumoniae Ag: negative * Group B Strep Antigen: not required * N. meningitis: not required * Urine legionella: negative * HIV: negative X3 * Brucella: negative * RPR: nonreactive Positive Microbiology--which have all been treated during hospitalization. 01/01: Blood: Coag neg Staph (06/23) bottles; 01/02 Blood cultures negative X2 5 days 01/03; 01/06; 01/07 Mycobacterial Culture: no fast acid bacilli identified; no Mycobacterium isolated for 6 weeks X3 Bone Marrow: no acid fast isolated 01/26: Sputum: Yeast 01/30: Bronchial washings: aristeo albicans and coag negative Stap 02/07: Sputum: Raoultella Planticola and Enterobacter Cloacae 02/10: Bone Marrow Staphyloccous Sp Coag 02/12: Sputum: Hafnia Alvei Latest: 02/21/17 Blood Culture is negative 02/23/17 Urine Culture is negative Immunology: * CHAVA: positive; 1:160, speckled, ANCA: negative, Proteinase 3: <1.0, Myeloperoxidase <1.0, [place]ongo Ab <1.0 UDS: negative 2). Hx Elevated Troponin: likely secondary to episode of V Tach. Cardiac Cath performed by Dr. Pryor 01/27/17 showed clean coronaries. Therapeutic Lovenox was discontinued. Patient is currently on telemetry. Amiodarone 200mg PO bid 3). Hyponatremia: Monitor 4). Hx Bacteremia: repeat cultures have been negative to date. Latest Blood cultures from 02/13/17 show no growth after 5 days and from 02/12/17 no growth for 5 days Blood cultures 02/19/17: no growth thus far Urine culture (02/19/17): no growth, Procalcitonin (02/19/17): 0.58 Blood cultures 02/21/17: pending 5). Hx of TB Prophylaxis: he was on INH upon admission but currently not on anything given transaminitis. Sputum x [address] Chest 01/26/17 shows no change when compared to 01/20/17 (please see full reports). 6). Hx Diffuse Rash: resolved 7). Hx Pancreatic Lesion: F/U CT Abdomen in 6 months; GI seen during hospitalization. 8). 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 Aspirin 9). Hx Constipation: resolved 10). Anemia likely secondary to Chronic Disease: stable 11). Hx Hypothyroidism: levothyroxine 88mcg PO q AM; f/u thyroid studies; thyroid US unremarkable 12). Hx Vertigo: resolved and was likely secondary to the Minocycline that patient was on at the time of admission and once discontinued, this issue resolved and has not recurred 13). Hx Diarrhea: resolved 14). Hx Bilateral Lower Leg Edema: duplex are negative, much improved and now mild non-pitting edema involving the ankles 15). Hx Elevated LFTs: monitor; hepatitis negative 16). History of hypothyroidism. TSH: 9.9 on 01/26/17, repeat thyroid panel: TSH: 7.32, Free t4: 1.51, Total T3: 0.584, T3 3rd generation 7.32, consult: endocrinology: Synthroid was increased to 112 mcg PO 1x/day 17) Prophylactic measure: Lovenox 40mg subqdaily Ian Gresham D.O. Objective - Vital Signs/Intake and Output Vital Signs (last 24 hours): Temp Pulse Resp BP Pulse Ox 97.5 F L 71 20 121/71 98 02/28/17 07:00 02/28/17 07:00 02/28/17 07:00 02/28/17 07:00 02/28/17 07:00 Intake and Output: 02/28/17 02/28/17 06:59 18:59 Intake Total 120 Output Total 3 Balance 117 - Medications Medications: Current Medications Acetaminophen (Tylenol 325mg Tab) 650 mg PO Q6 PRN PRN Reason: Fever >100.4 F Last Admin: 02/15/17 10:17 Dose: 650 mg Amiodarone HCl (Cordarone) 200 mg PO BID [facility] Last Admin: 09/09/17 09:28 Dose: 200 mg Enoxaparin Sodium (Lovenox) 40 mg SC DAILY [facility] Last Admin: 02/28/17 09:22 Dose: 40 mg Guaifenesin (Mucinex La) 600 mg PO BID [facility] Last Admin: 02/28/17 09:22 Dose: 600 mg Imipenem/Cilastatin Sodium 500 (mg/ Sodium Chloride) 100 mls @ 100 mls/hr IVPB Q12 [facility] Last Admin: 02/27/17 22:21 Dose: 100 mls/hr Micafungin Sodium 100 mg/ (Sodium Chloride) 100 mls @ 100 mls/hr IVPB Q24H [facility] Last Admin: 02/27/17 14:40 Dose: 100 mls/hr Ibuprofen (Motrin Tab) 600 mg PO TID PRN PRN Reason: fever Last Admin: 02/28/17 00:36 Dose: 600 mg Ipratropium [place] (Atrovent Hfa) 2 puff IH RQ6 PRN PRN Reason: Shortness of Breath Lactic Acid (Lac-Hydrin 12% Lotion (225 G)) 225 gm EXT Q1H PRN PRN Reason: Dry skin Last Admin: 02/04/17 18:34 Dose: 1 applic Levothyroxine Sodium (Synthroid) 112 mcg PO DAILY@0630 [facility] Last Admin: 02/28/17 05:45 Dose: 112 mcg Ondansetron HCl (Zofran Inj) 4 mg IVP Q6H PRN PRN Reason: nausea Last Admin: 02/14/17 18:46 Dose: 4 mg Promethazine HCl/Codeine (Phenergan/Codeine Oral Syrup) 5 ml PO Q4 PRN PRN Reason: Cough Last Admin: 02/14/17 18:15 Dose: 5 ml - Labs Labs: 02/28/17 07:09 02/28/17 07:09 PT 13.2 SECONDS (9.7-12.2) H 01/20/17 19:37 INR 1.2 01/20/17 19:37 APTT 32 SECONDS (21-34) 01/20/17 19:37
[2017-02-28] MEDS: Micafungin 100 MG in Sodium Chloride 0.9% 100 ML IVPB SCH (14:00)
[2017-03-01] MEDS: Levothyroxine 112 MCG TAB PO SCH (05:36)
[2017-03-01 07:24] LABS: BASO # 0.1 K/uL (0.0-0.2); BASO % 0.5 % (0.0-2.0); EOS # 0.3 K/uL (0.0-0.7); EOS % 1.4 % (0.0-4.0); HEMATOCRIT 28.2 % (35.0-51.0); LYMPH % 8.1 % (20.0-40.0); MEAN CELL VOLUME 83.7 fL (80.0-94.0); MEAN CORPUSCULAR HEMOGLOBIN 27.4 pg (27.0-31.0); MEAN CORPUSCULAR HGB CONC 32.8 g/dL (33.0-37.0); MEAN PLATELET VOLUME 7.4 fL (7.2-11.7); MONO # 0.4 K/uL (0.0-0.8); MONO % 1.7 % (0.0-10.0); PLATELET COUNT 496 K/uL (130-400); RED CELL DISTRIBUTION WIDTH 18.5 % (11.5-14.5)
[2017-03-01 07:36] LABS: WHITE BLOOD COUNT 24.5 K/uL (4.8-10.8)
[2017-03-01 08:07] LABS: ALB/GLOB RATIO 0.5 (1.0-2.1); ALKALINE PHOSPHATASE 144 U/L (38-126); ALT/SGPT 50 U/L (21-72); AST/SGOT 50 U/L (17-59); BILIRUBIN,TOTAL 0.2 mg/dL (0.2-1.3); BLOOD UREA NITROGEN 17 mg/dL (9-20); CALCIUM 7.9 mg/dl (8.6-10.4); CARBON DIOXIDE 27 mmol/L (22-30); CHLORIDE 98 mmol/L (98-107); GFR AFRICAN-AMERICAN > 60; GLUCOSE,RANDOM 102 mg/dL (75-110); MAGNESIUM 1.6 mg/dL (1.6-2.3); PHOSPHOROUS 3.6 mg/dL (2.5-4.5); POTASSIUM 4.1 mmol/L (3.6-5.2); SODIUM 133 mmol/L (132-148); TOTAL PROTEIN 7.5 g/dL (6.3-8.3)
[2017-03-01 09:22] LABS: NEUTROPHIL 92 % (50-75); TOTAL CELLS COUNTED 100
[2017-03-01 09:25] LABS: GIANT PLATELETS PRESENT; LARGE PLATELETS PRESENT
[2017-03-01] MEDS: Enoxaparin 40 mg Syringe SC SCH (09:46)
[2017-03-01] MEDS: guaiFENesin 600 mg ER Tab PO SCH ×2 (09:46→18:09)
[2017-03-01] MEDS: Micafungin 100 MG in Sodium Chloride 0.9% 100 ML IVPB SCH (13:42)
--- NOTE | 2017-03-01 18:25 | CP.PCM.PN ---
Subjective - Date & Time of Evaluation Date of Evaluation: 03/02/17 Time of Evaluation: 14:45 - Subjective Subjective: Hospitalist Progress Note Patient was seen and examined on 02/28/17 at 9:45 AM. Patient was admitted on and has had an extensive workup concerning fever and leukocytosis. 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 Please see Assessment and Plans below for details. 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 For our patient who is being started on Prednisone 65 mg, we may decrease the daily dose of Prednisone every week with the aim of reducing Prednisone dosing to below 10 mg daily within eight weeks, then discontinuing Prednisone therapy over the subsequent three months. * In order to protect his bones from the Prednisone, Calcium/Vitamin D 250/125 2 tablet by mouth 3x/day has been ordered as this is what our pharmacy carries here. Our goal is Calcium Citrate 1,200 mg and Vitamin D 800 IU in a 24 hour period of time in divided doses and not all at once. * Patient will need thorough follow up with Rheumatology as an outpatient when he is ready for discharge. 2). Leukocytosis; Fever of Unknown Origin * Pulmonary (Dr. Mckeon) on board * Infectious Disease (Dr. Calzada/Dr. Carias) on board * Heme-onc (Dr. Jennifer Alexandre) on board * s/p bronchoscopy/bronchial washing for Thursday01/30/17 and this was performed: culture showed Aristeo albicans and Coag Neg Staph and Sputum AFB is negative--- >completed Diflucan 200 mg IV on 02/03/17 and treated through 02/13/17. * CT scan Chest/Abdomen/Pelvis (02/03/17): largely stable findings within the chest; included septa; thickening; persistent bibasilar consolidation bronchiesctasis; lymphadenopathy including mediastinal and axillary lymph nodes ; cervical lymphadenopathy present * Sputum Culture 02/07/17 showed Raoultella planticola and Enterobacter cloacae and patient was on Ceftriaxone from 02/03/17 through 02/13/17. * S/P Bone Marrow Bx 02/10/17 and Bone Marrow Cultures are currently negative--> . 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 Diffuse liner/tubular shaped increase radiotracer uptake at the left abdomen suspicious for uptake in the left colon. Correlate clinically for colitis * CT Abdomen/Pelvis w PO contrast (02/18/17): bibasal or consolidation. Small bulla/bleb in right lower lobe. No change. Right renal cyst with a calcification in the wall of the cyst. No stones are seen in the left kidney. Small hiatal hernia. Very small pleural effusions bilaterally. Small inguinal hernia containing fat bilaterally * I spoke with IR Dr. Rosa Jacobson (02/25/17): Dr. Jacobson reveiwed prior CTs and unfortunately does not have a seeable area for FNA biopsy. He recommended repeat CT Chest and this has been done showing extensive bilateral lower lobe fibrotic changes, stable to slightly increased bilateral lower lobe consolidations and ground glass opacities, septal thickening present, subplueral cysts, trace bilateral plueral effusions * CT Soft Neck has also been ordered for 02/26/17 and there is NO evidence of mass , NO abnormal enhancement or pathologic lymphadenopathy, apparent mild circumferential mural thickening of the visualized upper thoracic esophageal wall is nonspecific and could represent infectious/inflammatory esophagitis * 02/27/17 patient with fever of 100.2 overnight and with Sputum Culture 02/24/17 came back positive for Klebsiella and Yeast therefore Imipenem 500 mg IV Q12H and Micofungin 100 mg IV Q24H were both started 02/27/17 Patient likely has Sjogren's Syndrome considering the results of autoimmune testing. He will need outpatient follow up with Rheumatology Microbiology: * Aspergillus: negative * Q fever: negative * Hepatitis Panel: negative * Blood parasites: negative * Hepatitis panel: negative * Coccidiodes F-Ag Ab/TP-Ag Ab: negative * C. difficle toxin: negative X7 * Quantaferon:L indeterminate * S. pneumoniae Ag: negative * Group B Strep Antigen: not required * N. meningitis: not required * Urine legionella: negative * HIV: negative X3 * Brucella: negative * RPR: nonreactive Positive Microbiology--which have all been treated during hospitalization. 01/01: Blood: Coag neg Staph (1/2) bottles; 01/02 Blood cultures negative X2 5 days 01/03; 01/06; 01/07 Mycobacterial Culture: no fast acid bacilli identified; no Mycobacterium isolated for 6 weeks X3 Bone Marrow: no acid fast isolated 01/26: Sputum: Yeast 01/30: Bronchial washings: aristeo albicans and coag negative Stap 02/07: Sputum: Raoultella Planticola and Enterobacter Cloacae 02/10: Bone Marrow Staphyloccous Sp Coag 02/12: Sputum: Hafnia Alvei Latest: 02/21/17 Blood Culture is negative 02/23/17 Urine Culture is negative Immunology: * CHAVA: positive; 1:160, speckled, ANCA: negative, Proteinase 3: <1.0, Myeloperoxidase <1.0, [place] Ab <1.0 UDS: negative 3). Hx Elevated Troponin: likely secondary to episode of V Tach. Cardiac Cath performed by Dr. Pryor 01/27/17 showed clean coronaries. Therapeutic Lovenox was discontinued. Patient is currently on telemetry. Amiodarone 200mg PO bid 4). Hyponatremia: Monitor 5). Hx Bacteremia: repeat cultures have been negative to date. Latest Blood cultures from 02/13/17 show no growth after 5 days and from 02/12/17 no growth for 5 days Blood cultures 02/19/17: no growth thus far Urine culture (02/19/17): no growth, Procalcitonin (02/19/17): 0.58 Blood cultures 02/21/17: pending 6). Hx of TB Prophylaxis: he was on INH upon admission but currently not on anything given transaminitis. Sputum x [address] Chest 01/26/17 shows no change when compared to 01/20/17 (please see full reports). 7). Hx Diffuse Rash: resolved 8). Hx Pancreatic Lesion: F/U CT Abdomen in 6 months; GI seen during hospitalization. 9). 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 Aspirin 10). Hx Constipation: resolved 11). Anemia likely secondary to Chronic Disease: stable 12). Hx Hypothyroidism: levothyroxine 88mcg PO q AM; f/u thyroid studies; thyroid US unremarkable 13). Hx Vertigo: resolved and was likely secondary to the Minocycline that patient was on at the time of admission and once discontinued, this issue resolved and has not recurred 14). Hx Diarrhea: resolved 15). Hx Bilateral Lower Leg Edema: duplex are negative, much improved and now mild non-pitting edema involving the ankles 16). Hx Elevated LFTs: monitor; hepatitis negative 17). History of hypothyroidism. TSH: 9.9 on 01/26/17, repeat thyroid panel: TSH: 7.32, Free t4: 1.51, Total T3: 0.584, T3 3rd generation 7.32, consult: endocrinology: Synthroid was increased to 112 mcg PO 1x/day 18). Prophylactic measure: Lovenox 40mg subqdaily Ian Gresham D.O. Objective - Vital Signs/Intake and Output Vital Signs (last 24 hours): Temp Pulse Resp BP Pulse Ox 99.4 F 80 20 127/65 98 03/01/17 08:20 03/01/17 08:20 03/01/17 08:20 03/01/17 08:20 03/01/17 08:20 Intake and Output: 03/01/17 03/01/17 06:59 18:59 Intake Total 700 Output Total 200 Balance 500 - Medications Medications: Current Medications Acetaminophen (Tylenol 325mg Tab) 650 mg PO Q6 PRN PRN Reason: Fever >100.4 F Last Admin: 03/01/17 00:24 Dose: 650 mg Amiodarone HCl (Cordarone) 200 mg PO BID [facility] Last Admin: 03/01/17 18:09 Dose: 200 mg Enoxaparin Sodium (Lovenox) 40 mg SC DAILY [facility] Last Admin: 03/01/17 09:46 Dose: 40 mg Guaifenesin (Mucinex La) 600 mg PO BID [facility] Last Admin: 03/01/17 18:09 Dose: 600 mg Imipenem/Cilastatin Sodium 500 (mg/ Sodium Chloride) 100 mls @ 100 mls/hr IVPB Q12 [facility] Last Admin: 03/01/17 09:47 Dose: 100 mls/hr Micafungin Sodium 100 mg/ (Sodium Chloride) 100 mls @ 100 mls/hr IVPB Q24H [facility] Last Admin: 03/01/17 13:42 Dose: 100 mls/hr Ibuprofen (Motrin Tab) 600 mg PO TID PRN PRN Reason: fever Last Admin: 02/28/17 00:36 Dose: 600 mg Ipratropium [place] (Atrovent Hfa) 2 puff IH RQ6 PRN PRN Reason: Shortness of Breath Lactic Acid (Lac-Hydrin 12% Lotion (225 G)) 225 gm EXT Q1H PRN PRN Reason: Dry skin Last Admin: 02/04/17 18:34 Dose: 1 applic Levothyroxine Sodium (Synthroid) 112 mcg PO DAILY@0630 [facility] Last Admin: 03/01/17 05:36 Dose: 112 mcg Ondansetron HCl (Zofran Inj) 4 mg IVP Q6H PRN PRN Reason: nausea Last Admin: 02/14/17 18:46 Dose: 4 mg Promethazine HCl/Codeine (Phenergan/Codeine Oral Syrup) 5 ml PO Q4 PRN PRN Reason: Cough Last Admin: 02/14/17 18:15 Dose: 5 ml - Labs Labs: 03/01/17 07:16 03/01/17 07:16 PT 13.2 SECONDS (9.7-12.2) H 01/20/17 19:37 INR 1.2 01/20/17 19:37 APTT 32 SECONDS (21-34) 01/20/17 19:37
[2017-03-01] MEDS: Calcium-Vit D 250 mg-125 Units Tab UD PO SCH (21:18)
--- NOTE | 2017-03-01 21:51 | CP.PCM.PCO ---
Physician Communication Note - Physician Communication Note Physician Communication Note: Temp of 98.9; No rash noted; Negative Koebner response.
--- NOTE | 2017-03-01 22:23 | CP.PCM.PCO ---
Physician Communication Note - Physician Communication Note Physician Communication Note: 22:00 check. Temp 99.7. No rash noted. Negative Koebner response.
[2017-03-02] MEDS: Levothyroxine 112 MCG TAB PO SCH (05:58)
[2017-03-02 07:28] LABS: BASO # 0.1 K/uL (0.0-0.2); BASO % 0.2 % (0.0-2.0); EOS # 0.4 K/uL (0.0-0.7); EOS % 1.6 % (0.0-4.0); HEMATOCRIT 26.4 % (35.0-51.0); LYMPH # 2.4 K/uL (1.0-4.3); LYMPH % 9.2 % (20.0-40.0); MEAN CORPUSCULAR HEMOGLOBIN 27.7 pg (27.0-31.0); MEAN CORPUSCULAR HGB CONC 33.4 g/dL (33.0-37.0); MONO # 0.5 K/uL (0.0-0.8); MONO % 1.9 % (0.0-10.0); PLATELET COUNT 513 K/uL (130-400); RED CELL DISTRIBUTION WIDTH 18.4 % (11.5-14.5); WHITE BLOOD COUNT 26.5 K/uL (4.8-10.8)
[2017-03-02 07:32] LABS: CHLORIDE 98 mmol/L (98-107)
[2017-03-02 07:33] LABS: SODIUM 131 mmol/L (132-148)
[2017-03-02 07:35] LABS: ALB/GLOB RATIO 0.5 (1.0-2.1); BILIRUBIN,TOTAL 0.4 mg/dL (0.2-1.3); CARBON DIOXIDE 27 mmol/L (22-30); GFR AFRICAN-AMERICAN > 60; TOTAL PROTEIN 7.6 g/dL (6.3-8.3)
[2017-03-02 07:36] LABS: ALKALINE PHOSPHATASE 141 U/L (38-126); ALT/SGPT 56 U/L (21-72); AST/SGOT 60 U/L (17-59); BLOOD UREA NITROGEN 15 mg/dL (9-20); CALCIUM 7.4 mg/dl (8.6-10.4); GLUCOSE,RANDOM 104 mg/dL (75-110); MAGNESIUM 1.5 mg/dL (1.6-2.3); PHOSPHOROUS 3.8 mg/dL (2.5-4.5)
[2017-03-02 08:51] LABS: EOSINOPHIL 1 % (0-4); MYELOCYTE 1 % (0-0); NEUTROPHIL 88 % (50-75); TOTAL CELLS COUNTED 100
[2017-03-02 08:53] LABS: GIANT PLATELETS PRESENT; LARGE PLATELETS PRESENT
[2017-03-02] MEDS: guaiFENesin 600 mg ER Tab PO SCH ×2 (09:34→18:07)
[2017-03-02] MEDS: Enoxaparin 40 mg Syringe SC SCH (09:36)
[2017-03-02] MEDS: Calcium-Vit D 250 mg-125 Units Tab UD PO SCH ×3 (09:43→18:07)
--- NOTE | 2017-03-02 10:00 | CP.PCM.PN ---
<Tanika Mccartney V - Last Filed: 03/02/17 19:02> Objective - Vital Signs/Intake and Output Vital Signs (last 24 hours): Temp Pulse Resp BP Pulse Ox 99.1 F 78 20 132/77 97 03/02/17 15:37 03/02/17 15:37 03/02/17 15:37 03/02/17 15:37 03/02/17 15:37 - Medications Medications: Current Medications Acetaminophen (Tylenol 325mg Tab) 650 mg PO Q6 PRN PRN Reason: Fever >100.4 F Last Admin: 03/01/17 00:24 Dose: 650 mg Amiodarone HCl (Cordarone) 200 mg PO BID [facility] Last Admin: 03/02/17 18:07 Dose: 200 mg Calcium/Vitamin D (Oscal-D 250 Mg-125 Units Tab) 2 tab PO TID [facility] Last Admin: 03/02/17 18:07 Dose: 2 tab Enoxaparin Sodium (Lovenox) 40 mg SC DAILY [facility] Last Admin: 03/02/17 09:36 Dose: 40 mg Guaifenesin (Mucinex La) 600 mg PO BID [facility] Last Admin: 03/02/17 18:07 Dose: 600 mg Imipenem/Cilastatin Sodium 500 (mg/ Sodium Chloride) 100 mls @ 100 mls/hr IVPB Q12 [facility] Last Admin: 03/02/17 09:36 Dose: 100 mls/hr Micafungin Sodium 100 mg/ (Sodium Chloride) 100 mls @ 100 mls/hr IVPB Q24H [facility] Last Admin: 03/02/17 13:49 Dose: 100 mls/hr Ibuprofen (Motrin Tab) 600 mg PO TID PRN PRN Reason: fever Last Admin: 02/28/17 00:36 Dose: 600 mg Ipratropium [place] (Atrovent Hfa) 2 puff IH RQ6 PRN PRN Reason: Shortness of Breath Lactic Acid (Lac-Hydrin 12% Lotion (225 G)) 225 gm EXT Q1H PRN PRN Reason: Dry skin Last Admin: 02/04/17 18:34 Dose: 1 applic Levothyroxine Sodium (Synthroid) 112 mcg PO DAILY@0630 [facility] Last Admin: 03/02/17 05:58 Dose: 112 mcg Ondansetron HCl (Zofran Inj) 4 mg IVP Q6H PRN PRN Reason: nausea Last Admin: 02/14/17 18:46 Dose: 4 mg Prednisone (Prednisone Tab) 60 mg PO DAILY [facility] Last Admin: 03/02/17 09:35 Dose: 60 mg Prednisone (Prednisone Tab) 5 mg PO DAILY [facility] Last Admin: 03/02/17 09:34 Dose: 5 mg Promethazine HCl/Codeine (Phenergan/Codeine Oral Syrup) 5 ml PO Q4 PRN PRN Reason: Cough Last Admin: 02/14/17 18:15 Dose: 5 ml - Labs Labs: 03/02/17 07:07 03/02/17 07:07 PT 13.2 SECONDS (9.7-12.2) H 01/20/17 19:37 INR 1.2 01/20/17 19:37 APTT 32 SECONDS (21-34) 01/20/17 19:37 Attending/Attestation - Attestation I have personally seen and examined this patient.: Yes I have fully participated in the care of the patient.: Yes I have reviewed all pertinent clinical information, including history, physical exam and plan: Yes Notes (Text): Patient seen, examined, and case discussed with day-time resident. patient seen this morning complaining of right shoulder pain, diaphoresis, no change in stool, and febrile overnight Tmax: 101 F. Patient is Primaxin 500mg IV Q 12hours (active since 02/27/17) and Micafungin Q 24hours (active since 02/27/17) for Sputum culture: +ESBL Klebsiella and yeast. 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 Will monitor for fever. Patient started on PO prednisone given consideration for Adult Still's Disease and treatment for IV antibiotics for persistent pneumonia. 1). Adult Still's Disease * Consult: Dr Dumont (rheumatology)-->given consideration for Adult Still's Disease in light of extensive workup for fever unknown origin. Based on colleagues A/P over last week: This is certainly a diagnosis of exclusion: please see the work up below The following support the diagnosis of Adult Still's Disease: * Fever: these have roughly been consistant at the same time at night * Maculopapular [place] colored rash: this was present on face, neck, and upper chest on 01/01/17 * Arthralgias: predominanly involving the bilateral shoulders * Myalgias: complained of neck and bilateral upper arm myalgias for a few days starting on 02/12/17 * Pharyngitis: he has had some soreness/dryness in his throat on and off since admission * Lymphadenopathy: bilateral posterior cervical chain mender lymphadenopathy persists on exam * Leukocytosis: he has had waxing and waing elevated WBC but alway above 15,000 * Pulmonary Infiltrates: he has had subpleural infilterates with pleural effusions as seen on his CT Chests * Pericardial Effusion: although he has not complained of symptoms consistent with pericarditis (difficulty breathing with laying flat although he has had dyspnea on and off), trace circumferential pericardial effusion on 2D Echocardiogram was noted at time of admission 01/01/17. 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 For our patient who is being started on Prednisone 65 mg, we may decrease the daily dose of Prednisone every week with the aim of reducing Prednisone dosing to below 10 mg daily within eight weeks, then discontinuing Prednisone therapy over the subsequent three months. * In order to protect his bones from the Prednisone, Calcium/Vitamin D 250/125 2 tablet by mouth 3x/day has been ordered as this is what our pharmacy carries here. Our goal is Calcium Citrate 1,200 mg and Vitamin D 800 IU in a 24 hour period of time in divided doses and not all at once. * Patient will need thorough follow up with Rheumatology as an outpatient when he is ready for discharge. 2). Leukocytosis; Fever of Unknown Origin * Pulmonary (Dr. Mckeon) on board * Infectious Disease (Dr. Calzada/Dr. Carias) on board * Heme-onc (Dr. Jennifer Alexandre) on board * s/p bronchoscopy/bronchial washing for Thursday01/30/17 and this was performed: culture showed Aristeo albicans and Coag Neg Staph and Sputum AFB is negative--- >completed Diflucan 200 mg IV on 02/03/17 and treated through 02/13/17. * CT scan Chest/Abdomen/Pelvis (02/03/17): largely stable findings within the chest; included septa; thickening; persistent bibasilar consolidation bronchiesctasis; lymphadenopathy including mediastinal and axillary lymph nodes ; cervical lymphadenopathy present * Sputum Culture 02/07/17 showed Raoultella planticola and Enterobacter cloacae and patient was on Ceftriaxone from 02/03/17 through 02/13/17. * S/P Bone Marrow Bx 02/10/17 and Bone Marrow Cultures are currently negative--> . 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 Diffuse liner/tubular shaped increase radiotracer uptake at the left abdomen suspicious for uptake in the left colon. Correlate clinically for colitis * CT Abdomen/Pelvis w PO contrast (02/18/17): bibasal or consolidation. Small bulla/bleb in right lower lobe. No change. Right renal cyst with a calcification in the wall of the cyst. No stones are seen in the left kidney. Small hiatal hernia. Very small pleural effusions bilaterally. Small inguinal hernia containing fat bilaterally * I spoke with IR Dr. Rosa Jacobson (02/25/17): Dr. Jacobson reveiwed prior CTs and unfortunately does not have a seeable area for FNA biopsy. He recommended repeat CT Chest and this has been done showing extensive bilateral lower lobe fibrotic changes, stable to slightly increased bilateral lower lobe consolidations and ground glass opacities, septal thickening present, subplueral cysts, trace bilateral plueral effusions * CT Soft Neck has also been ordered for 02/26/17 and there is NO evidence of mass , NO abnormal enhancement or pathologic lymphadenopathy, apparent mild circumferential mural thickening of the visualized upper thoracic esophageal wall is nonspecific and could represent infectious/inflammatory esophagitis * 02/27/17 patient with fever of 100.2 overnight and with Sputum Culture 02/24/17 came back positive for Klebsiella and Yeast therefore Imipenem 500 mg IV Q12H and Micafungin 100 mg IV Q24H were both started 02/27/17 * Also, possible Adult Still's Disease, and patient has positive antibiodies suggestive for Sjogren's Syndrome considering the results of autoimmune testing. He will need outpatient follow up with Rheumatology Microbiology: * Aspergillus: negative * Q fever: negative * Hepatitis Panel: negative * Blood parasites: negative * Hepatitis panel: negative * Coccidiodes F-Ag Ab/TP-Ag Ab: negative * C. difficle toxin: negative X7 * Quantaferon:L indeterminate * S. pneumoniae Ag: negative * Group B Strep Antigen: not required * N. meningitis: not required * Urine legionella: negative * HIV: negative X3 * Brucella: negative * RPR: nonreactive Positive Microbiology--which have all been treated during hospitalization. 01/01: Blood: Coag neg Staph (1/2) bottles; 01/02 Blood cultures negative X2 5 days 01/03; 01/06; 01/07 Mycobacterial Culture: no fast acid bacilli identified; no Mycobacterium isolated for 6 weeks X3 Bone Marrow: no acid fast isolated 01/26: Sputum: Yeast 01/30: Bronchial washings: aristeo albicans and coag negative Stap 02/07: Sputum: Raoultella Planticola and Enterobacter Cloacae 02/10: Bone Marrow Staphyloccous Sp Coag 02/12: Sputum: Hafnia Alvei 02/24: Sputum: ESBL+ Klebsiella and Yeast Latest: 02/21/17 Blood Culture is negative 02/23/17 Urine Culture is negative Immunology: * CHAVA: positive; 1:160/ 1:320 speckled, ANCA: negative, Proteinase 3: <1.0, Myeloperoxidase <1.0, [place] Ab <1.0 * Rheumatoid Factor: 22 * Anti SS-A/SS-B: >8.0 X2 * negative Montelongo Antibody * Snegative SM/AIRCREWMAN antibody * Negative DsDNA * Positive Actin Igg Antibody * Positiev Thyroperoxidase Ab * negative GBM * Negative Parietal Cell UDS: negative 3). Hx Elevated Troponin: likely secondary to episode of V Tach. Cardiac Cath performed by Dr. Pryor 01/27/17 showed clean coronaries. Therapeutic Lovenox was discontinued. Patient is currently on telemetry. Amiodarone 200mg PO bid 4). Hyponatremia: Monitor 5). Hx Bacteremia: repeat cultures have been negative to date. Blood cultures from 02/13/17 show no growth after 5 days and from 02/12/17 no growth for 5 days Blood cultures 02/19/17: no growth thus far Urine culture (02/19/17): no growth, Procalcitonin (02/19/17): 0.58 Blood cultures 02/21/17: negative to date 6). Hx of TB Prophylaxis: he was on INH upon admission but currently not on anything given transaminitis. Sputum x [address] Chest 01/26/17 shows no change when compared to 01/20/17 (please see full reports). 7). Hx Diffuse Rash: resolved 8). Hx Pancreatic Lesion: F/U CT Abdomen in 6 months; GI seen during hospitalization. 9). 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 Aspirin; Resolved in repeat Duplex 10). Hx Constipation: resolved 11). Anemia likely secondary to Chronic Disease: stable 13). Hx Vertigo: resolved and was likely secondary to the Minocycline that patient was on at the time of admission and once discontinued, this issue resolved and has not recurred 14). Hx Diarrhea: resolved 15). Hx Bilateral Lower Leg Edema: duplex are negative, much improved and now mild non-pitting edema involving the ankles 16). Hx Elevated LFTs: monitor; hepatitis negative 17). History of hypothyroidism. TSH: 9.9 on 01/26/17, repeat thyroid panel: TSH: 7.32, Free t4: 1.51, Total T3: 0.584, T3 3rd generation 7.32, consult: endocrinology: Synthroid was increased to 112 mcg PO 1x/day 18). Prophylactic measure: Lovenox 40mg subqdaily <Loan Reyna - Last Filed: 03/02/17 19:20> Subjective - Date & Time of Evaluation Date of Evaluation: 03/02/17 Time of Evaluation: 10:00 - Subjective Subjective: Patient is seen and examined at bedside. Patient denied any acute overnight other than fever. Patient reports of bilateral constant shoulder pain without any alleviation or aggravation. Patient denied any navarro/cp/sob/abd pain/n/v/d Objective - Vital Signs/Intake and Output Vital Signs (last 24 hours): Temp Pulse Resp BP Pulse Ox 99.4 F 78 18 129/64 97 03/02/17 08:25 03/02/17 08:25 03/02/17 08:25 03/02/17 08:25 03/02/17 08:25 Intake and Output: 03/02/17 03/02/17 06:59 18:59 Intake Total 240 Output Total 302 Balance -62 - Medications Medications: Current Medications Acetaminophen (Tylenol 325mg Tab) 650 mg PO Q6 PRN PRN Reason: Fever >100.4 F Last Admin: 03/01/17 00:24 Dose: 650 mg Amiodarone HCl (Cordarone) 200 mg PO BID [facility] Last Admin: 03/02/17 09:35 Dose: 200 mg Calcium/Vitamin D (Oscal-D 250 Mg-125 Units Tab) 2 tab PO TID [facility] Last Admin: 03/02/17 09:43 Dose: 2 tab Enoxaparin Sodium (Lovenox) 40 mg SC DAILY [facility] Last Admin: 03/02/17 09:36 Dose: 40 mg Guaifenesin (Mucinex La) 600 mg PO BID [facility] Last Admin: 03/02/17 09:34 Dose: 600 mg Imipenem/Cilastatin Sodium 500 (mg/ Sodium Chloride) 100 mls @ 100 mls/hr IVPB Q12 [facility] Last Admin: 03/02/17 09:36 Dose: 100 mls/hr Micafungin Sodium 100 mg/ (Sodium Chloride) 100 mls @ 100 mls/hr IVPB Q24H [facility] Last Admin: 03/01/17 13:42 Dose: 100 mls/hr Ibuprofen (Motrin Tab) 600 mg PO TID PRN PRN Reason: fever Last Admin: 02/28/17 00:36 Dose: 600 mg Ipratropium [place] (Atrovent Hfa) 2 puff IH RQ6 PRN PRN Reason: Shortness of Breath Lactic Acid (Lac-Hydrin 12% Lotion (225 G)) 225 gm EXT Q1H PRN PRN Reason: Dry skin Last Admin: 02/04/17 18:34 Dose: 1 applic Levothyroxine Sodium (Synthroid) 112 mcg PO DAILY@0630 [facility] Last Admin: 03/02/17 05:58 Dose: 112 mcg Ondansetron HCl (Zofran Inj) 4 mg IVP Q6H PRN PRN Reason: nausea Last Admin: 02/14/17 18:46 Dose: 4 mg Prednisone (Prednisone Tab) 60 mg PO DAILY [facility] Last Admin: 03/02/17 09:35 Dose: 60 mg Prednisone (Prednisone Tab) 5 mg PO DAILY [facility] Last Admin: 03/02/17 09:34 Dose: 5 mg Promethazine HCl/Codeine (Phenergan/Codeine Oral Syrup) 5 ml PO Q4 PRN PRN Reason: Cough Last Admin: 02/14/17 18:15 Dose: 5 ml - Labs Labs: 03/02/17 07:07 03/02/17 07:07 PT 13.2 SECONDS (9.7-12.2) H 01/20/17 19:37 INR 1.2 01/20/17 19:37 APTT 32 SECONDS (21-34) 01/20/17 19:37 - Constitutional Appears: Non-toxic, No Acute Distress - Head Exam Head Exam: ATRAUMATIC, NORMAL INSPECTION, NORMOCEPHALIC - Eye Exam Eye Exam: EOMI - ENT Exam ENT Exam: Mucous Membranes Moist - Respiratory Exam Respiratory Exam: Clear to Ausculation Bilateral, NORMAL BREATHING PATTERN - Cardiovascular Exam Cardiovascular Exam: REGULAR RHYTHM, +S1, +S2 - GI/Abdominal Exam GI & Abdominal Exam: Soft, Normal Bowel Sounds. absent: Distended, Tenderness - Extremities Exam Extremities Exam: Normal Inspection. 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: please see the work up below The following support the diagnosis of Adult Still's Disease: * Fever: these have roughly been consistant at the same time at night * Maculopapular [place] colored rash: this was present on face, neck, and upper chest on 01/01/17 * Arthralgias: predominanly involving the bilateral shoulders * Myalgias: complained of neck and bilateral upper arm myalgias for a few days starting on 02/12/17 * Pharyngitis: he has had some soreness/dryness in his throat on and off since admission * Lymphadenopathy: bilateral posterior cervical chain mender lymphadenopathy persists on exam * Leukocytosis: he has had waxing and waing elevated WBC but alway above 15,000 * Pulmonary Infiltrates: he has had subpleural infilterates with pleural effusions as seen on his CT Chests * Pericardial Effusion: although he has not complained of symptoms consistent with pericarditis (difficulty breathing with laying flat although he has had dyspnea on and off), trace circumferential pericardial effusion on 2D Echocardiogram was noted at time of admission 01/01/17. 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 For our patient who is being started on Prednisone 65 mg, we may decrease the daily dose of Prednisone every week with the aim of reducing Prednisone dosing to below 10 mg daily within eight weeks, then discontinuing Prednisone therapy over the subsequent three months. * In order to protect his bones from the Prednisone, Calcium/Vitamin D 250/125 2 tablet by mouth 3x/day has been ordered as this is what our pharmacy carries here. Our goal is Calcium Citrate 1,200 mg and Vitamin D 800 IU in a 24 hour period of time in divided doses and not all at once. * Patient will need thorough follow up with Rheumatology as an outpatient when he is ready for discharge. 2). Leukocytosis; Fever of Unknown Origin * Pulmonary (Dr. Mckeon) on board * Infectious Disease (Dr. Calzada/Dr. Carias) on board * Heme-onc (Dr. Jennifer Alexandre) on board * s/p bronchoscopy/bronchial washing for Thursday01/30/17 and this was performed: culture showed Aristeo albicans and Coag Neg Staph and Sputum AFB is negative--- >completed Diflucan 200 mg IV on 02/03/17 and treated through 02/13/17. * CT scan Chest/Abdomen/Pelvis (02/03/17): largely stable findings within the chest; included septa; thickening; persistent bibasilar consolidation bronchiesctasis; lymphadenopathy including mediastinal and axillary lymph nodes ; cervical lymphadenopathy present * Sputum Culture 02/07/17 showed Raoultella planticola and Enterobacter cloacae and patient was on Ceftriaxone from 02/03/17 through 02/13/17. * S/P Bone Marrow Bx 02/10/17 and Bone Marrow Cultures are currently negative--> . 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 Diffuse liner/tubular shaped increase radiotracer uptake at the left abdomen suspicious for uptake in the left colon. Correlate clinically for colitis * CT Abdomen/Pelvis w PO contrast (02/18/17): bibasal or consolidation. Small bulla/bleb in right lower lobe. No change. Right renal cyst with a calcification in the wall of the cyst. No stones are seen in the left kidney. Small hiatal hernia. Very small pleural effusions bilaterally. Small inguinal hernia containing fat bilaterally * I spoke with IR Dr. Rosa Jacobson (02/25/17): Dr. Jacobson reveiwed prior CTs and unfortunately does not have a seeable area for FNA biopsy. He recommended repeat CT Chest and this has been done showing extensive bilateral lower lobe fibrotic changes, stable to slightly increased bilateral lower lobe consolidations and ground glass opacities, septal thickening present, subplueral cysts, trace bilateral plueral effusions * CT Soft Neck has also been ordered for 02/26/17 and there is NO evidence of mass , NO abnormal enhancement or pathologic lymphadenopathy, apparent mild circumferential mural thickening of the visualized upper thoracic esophageal wall is nonspecific and could represent infectious/inflammatory esophagitis * 03/02/17 patient with fever of 101 overnight and with Sputum Culture 02/24/17 came back positive for Klebsiella and Yeast therefore Imipenem 500 mg IV Q12H and Micofungin 100 mg IV Q24H were both started 02/27/17 Patient likely has Sjogren's Syndrome considering the results of autoimmune testing. He will need outpatient follow up with Rheumatology Microbiology: * Aspergillus: negative * Q fever: negative * Hepatitis Panel: negative * Blood parasites: negative * Hepatitis panel: negative * Coccidiodes F-Ag Ab/TP-Ag Ab: negative * C. difficle toxin: negative X7 * Quantaferon:L indeterminate * S. pneumoniae Ag: negative * Group B Strep Antigen: not required * N. meningitis: not required * Urine legionella: negative * HIV: negative X3 * Brucella: negative * RPR: nonreactive Positive Microbiology--which have all been treated during hospitalization. 01/01: Blood: Coag neg Staph (06/23) bottles; 01/02 Blood cultures negative X2 5 days 01/03; 01/06; 01/07 Mycobacterial Culture: no fast acid bacilli identified; no Mycobacterium isolated for 6 weeks X3 Bone Marrow: no acid fast isolated 01/26: Sputum: Yeast 01/30: Bronchial washings: aristeo albicans and coag negative Stap 02/07: Sputum: Raoultella Planticola and Enterobacter Cloacae 02/10: Bone Marrow Staphyloccous Sp Coag 02/12: Sputum: Hafnia Alvei Latest: 02/21/17 Blood Culture is negative 02/23/17 Urine Culture is negative Immunology: * CHAVA: positive; 1:160, speckled, ANCA: negative, Proteinase 3: <1.0, Myeloperoxidase <1.0, [place] Ab <1.0 UDS: negative 3). Hx Elevated Troponin: likely secondary to episode of V Tach. Cardiac Cath performed by Dr. Pryor 01/27/17 showed clean coronaries. Therapeutic Lovenox was discontinued. Patient is currently on telemetry. Amiodarone 200mg PO bid 4). Hyponatremia: Monitor 5). Hx Bacteremia: repeat cultures have been negative to date. Latest Blood cultures from 02/13/17 show no growth after 5 days and from 02/12/17 no growth for 5 days Blood cultures 02/19/17: no growth thus far Urine culture (02/19/17): no growth, Procalcitonin (02/19/17): 0.58 Blood cultures 02/21/17: pending 6). Hx of TB Prophylaxis: he was on INH upon admission but currently not on anything given transaminitis. Sputum x [address] Chest 01/26/17 shows no change when compared to 01/20/17 (please see full reports). 7). Hx Diffuse Rash: resolved 8). Hx Pancreatic Lesion: F/U CT Abdomen in 6 months; GI seen during hospitalization. 9). 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 Aspirin 10). Hx Constipation: resolved 11). Anemia likely secondary to Chronic Disease: stable 12). Hx Hypothyroidism: levothyroxine 88mcg PO q AM; f/u thyroid studies; thyroid US unremarkable 13). Hx Vertigo: resolved and was likely secondary to the Minocycline that patient was on at the time of admission and once discontinued, this issue resolved and has not recurred 14). Hx Diarrhea: resolved 15). Hx Bilateral Lower Leg Edema: duplex are negative, much improved and now mild non-pitting edema involving the ankles 16). Hx Elevated LFTs: monitor; hepatitis negative 17). History of hypothyroidism. TSH: 9.9 on 01/26/17, repeat thyroid panel: TSH: 7.32, Free t4: 1.51, Total T3: 0.584, T3 3rd generation 7.32, consult: endocrinology: Synthroid was increased to 112 mcg PO 1x/day 18). Prophylactic measure: Lovenox 40mg subqdaily
[2017-03-02] MEDS ORDERED: Magnesium Sulfate 1 gm in D5W 1 GM/100 ML BAG IVPB ONE (12:00)
[2017-03-02] MEDS: Micafungin 100 MG in Sodium Chloride 0.9% 100 ML IVPB SCH (13:49)
[2017-03-03] MEDS: Levothyroxine 112 MCG TAB PO SCH (05:58)
[2017-03-03 07:04] LABS: BASO # 0.1 K/uL (0.0-0.2); BASO % 0.4 % (0.0-2.0); EOS # 0.2 K/uL (0.0-0.7); EOS % 0.7 % (0.0-4.0); HEMATOCRIT 26.3 % (35.0-51.0); LYMPH % 7.9 % (20.0-40.0); MEAN CELL VOLUME 83.2 fL (80.0-94.0); MEAN CORPUSCULAR HEMOGLOBIN 27.5 pg (27.0-31.0); MEAN CORPUSCULAR HGB CONC 33.1 g/dL (33.0-37.0); MONO # 1.3 K/uL (0.0-0.8); PLATELET COUNT 497 K/uL (130-400); RED CELL DISTRIBUTION WIDTH 17.8 % (11.5-14.5); WHITE BLOOD COUNT 25.6 K/uL (4.8-10.8)
[2017-03-03 07:44] LABS: CHLORIDE 98 mmol/L (98-107); POTASSIUM 3.6 mmol/L (3.6-5.2); SODIUM 130 mmol/L (132-148)
[2017-03-03 07:46] LABS: ALB/GLOB RATIO 0.5 (1.0-2.1); ALKALINE PHOSPHATASE 154 U/L (38-126); ALT/SGPT 81 U/L (21-72); AST/SGOT 94 U/L (17-59); BILIRUBIN,TOTAL 0.4 mg/dL (0.2-1.3); BLOOD UREA NITROGEN 16 mg/dL (9-20); CARBON DIOXIDE 26 mmol/L (22-30); GFR AFRICAN-AMERICAN > 60; TOTAL PROTEIN 7.8 g/dL (6.3-8.3)
[2017-03-03 07:47] LABS: CALCIUM 7.5 mg/dl (8.6-10.4); GLUCOSE,RANDOM 125 mg/dL (75-110); MAGNESIUM 1.6 mg/dL (1.6-2.3); PHOSPHOROUS 3.2 mg/dL (2.5-4.5)
--- NOTE | 2017-03-03 07:59 | CP.PCM.PN ---
<Loan Reyna - Last Filed: 03/03/17 16:26> Subjective - Date & Time of Evaluation Date of Evaluation: 03/03/17 Time of Evaluation: 07:56 - Subjective Subjective: Patient is seen and examined at bedside. Patient denied any acute events overnight. Patient denies fever over night. Patient still reporting bilateral constant shoulder pain. Patient is also having some midsternal ches pain only when turning over in bed. He describes this as a musculoskeletal type pain. Patient denied any navarro/sob/abd pain/n/v/d Objective - Vital Signs/Intake and Output Vital Signs (last 24 hours): Temp Pulse Resp BP Pulse Ox 98.2 F 80 20 130/70 98 03/03/17 03:43 03/03/17 03:43 03/03/17 03:43 03/03/17 03:43 03/03/17 03:43 Intake and Output: 03/03/17 03/03/17 06:59 18:59 Intake Total 240 Output Total 300 Balance -60 - Medications Medications: Current Medications Acetaminophen (Tylenol 325mg Tab) 650 mg PO Q6 PRN PRN Reason: Fever >100.4 F Last Admin: 03/01/17 00:24 Dose: 650 mg Amiodarone HCl (Cordarone) 200 mg PO BID [facility] Last Admin: 03/02/17 18:07 Dose: 200 mg Calcium/Vitamin D (Oscal-D 250 Mg-125 Units Tab) 2 tab PO TID [facility] Last Admin: 03/02/17 18:07 Dose: 2 tab Enoxaparin Sodium (Lovenox) 40 mg SC DAILY [facility] Last Admin: 03/02/17 09:36 Dose: 40 mg Guaifenesin (Mucinex La) 600 mg PO BID [facility] Last Admin: 03/02/17 18:07 Dose: 600 mg Imipenem/Cilastatin Sodium 500 (mg/ Sodium Chloride) 100 mls @ 100 mls/hr IVPB Q12 [facility] Last Admin: 03/02/17 21:23 Dose: 100 mls/hr Micafungin Sodium 100 mg/ (Sodium Chloride) 100 mls @ 100 mls/hr IVPB Q24H [facility] Last Admin: 03/02/17 13:49 Dose: 100 mls/hr Ibuprofen (Motrin Tab) 600 mg PO TID PRN PRN Reason: fever Last Admin: 03/03/17 03:49 Dose: 600 mg Ipratropium Louann (Atrovent Hfa) 2 puff IH RQ6 PRN PRN Reason: Shortness of Breath Lactic Acid (Lac-Hydrin 12% Lotion (225 G)) 225 gm EXT Q1H PRN PRN Reason: Dry skin Last Admin: 02/04/17 18:34 Dose: 1 applic Levothyroxine Sodium (Synthroid) 112 mcg PO DAILY@0630 [facility] Last Admin: 03/03/17 05:58 Dose: 112 mcg Ondansetron HCl (Zofran Inj) 4 mg IVP Q6H PRN PRN Reason: nausea Last Admin: 02/14/17 18:46 Dose: 4 mg Prednisone (Prednisone Tab) 60 mg PO DAILY [facility] Last Admin: 03/02/17 09:35 Dose: 60 mg Prednisone (Prednisone Tab) 5 mg PO DAILY [facility] Last Admin: 03/02/17 09:34 Dose: 5 mg Promethazine HCl/Codeine (Phenergan/Codeine Oral Syrup) 5 ml PO Q4 PRN PRN Reason: Cough Last Admin: 02/14/17 18:15 Dose: 5 ml - Labs Labs: 03/03/17 06:48 03/03/17 06:48 PT 13.2 SECONDS (9.7-12.2) H 01/20/17 19:37 INR 1.2 01/20/17 19:37 APTT 32 SECONDS (21-34) 01/20/17 19:37 - Constitutional Appears: Non-toxic, No Acute Distress - Head Exam Head Exam: ATRAUMATIC, NORMAL INSPECTION, NORMOCEPHALIC - Eye Exam Eye Exam: EOMI - ENT Exam ENT Exam: Mucous Membranes Moist - Respiratory Exam Respiratory Exam: Clear to Ausculation Bilateral, NORMAL BREATHING PATTERN - Cardiovascular Exam Cardiovascular Exam: REGULAR RHYTHM, +S1, +S2 - GI/Abdominal Exam GI & Abdominal Exam: Soft, Normal Bowel Sounds. absent: Distended, Tenderness - Extremities Exam Extremities Exam: Normal Inspection, Tenderness (shoulders b/l ). 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: please see the work up below The following support the diagnosis of Adult Still's Disease: * Fever: these have roughly been consistant at the same time at night * Maculopapular Shobonier colored rash: this was present on face, neck, and upper chest on 01/01/17 * Arthralgias: predominanly involving the bilateral shoulders * Myalgias: complained of neck and bilateral upper arm myalgias for a few days starting on 02/12/17 * Pharyngitis: he has had some soreness/dryness in his throat on and off since admission * Lymphadenopathy: bilateral posterior cervical machine chain maker lymphadenopathy persists on exam * Leukocytosis: he has had waxing and waing elevated WBC but alway above 15,000 * Pulmonary Infiltrates: he has had subpleural infilterates with pleural effusions as seen on his CT Chests * Pericardial Effusion: although he has not complained of symptoms consistent with pericarditis (difficulty breathing with laying flat although he has had dyspnea on and off), trace circumferential pericardial effusion on 2D Echocardiogram was noted at time of admission 01/01/17. 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 For our patient who is being started on Prednisone 65 mg, we may decrease the daily dose of Prednisone every week with the aim of reducing Prednisone dosing to below 10 mg daily within eight weeks, then discontinuing Prednisone therapy over the subsequent three months. * In order to protect his bones from the Prednisone, Calcium/Vitamin D 250/125 2 tablet by mouth 3x/day has been ordered as this is what our pharmacy carries here. Our goal is Calcium Citrate 1,200 mg and Vitamin D 800 IU in a 24 hour period of time in divided doses and not all at once. * Patient will need thorough follow up with Rheumatology as an outpatient when he is ready for discharge. Dr. Dumont was consulted for reumatological recommendations. He suggested the steroid be tapered to 10 mg and the patient continues on this dose for >3 months. He offered to see this patient as a f/u after discharge pending authorization. 2). Leukocytosis; Fever of Unknown Origin * Pulmonary (Dr. Mckeon) on board * Infectious Disease (Dr. Calzada/Dr. Carias) on board * Heme-onc (Dr. Jennifer Alexandre) on board * s/p bronchoscopy/bronchial washing for Thursday01/30/17 and this was performed: culture showed Aristeo albicans and Coag Neg Staph and Sputum AFB is negative--- >completed Diflucan 200 mg IV on 02/03/17 and treated through 02/13/17. * CT scan Chest/Abdomen/Pelvis (02/03/17): largely stable findings within the chest; included septa; thickening; persistent bibasilar consolidation bronchiesctasis; lymphadenopathy including mediastinal and axillary lymph nodes ; cervical lymphadenopathy present * Sputum Culture 02/07/17 showed Raoultella planticola and Enterobacter cloacae and patient was on Ceftriaxone from 02/03/17 through 02/13/17. * S/P Bone Marrow Bx 02/10/17 and Bone Marrow Cultures are currently negative--> . 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 Diffuse liner/tubular shaped increase radiotracer uptake at the left abdomen suspicious for uptake in the left colon. Correlate clinically for colitis * CT Abdomen/Pelvis w PO contrast (02/18/17): bibasal or consolidation. Small bulla/bleb in right lower lobe. No change. Right renal cyst with a calcification in the wall of the cyst. No stones are seen in the left kidney. Small hiatal hernia. Very small pleural effusions bilaterally. Small inguinal hernia containing fat bilaterally * I spoke with IR Dr. Rosa Jacobson (02/25/17): Dr. Jacobson reveiwed prior CTs and unfortunately does not have a seeable area for FNA biopsy. He recommended repeat CT Chest and this has been done showing extensive bilateral lower lobe fibrotic changes, stable to slightly increased bilateral lower lobe consolidations and ground glass opacities, septal thickening present, subplueral cysts, trace bilateral plueral effusions * CT Soft Neck has also been ordered for 02/26/17 and there is NO evidence of mass , NO abnormal enhancement or pathologic lymphadenopathy, apparent mild circumferential mural thickening of the visualized upper thoracic esophageal wall is nonspecific and could represent infectious/inflammatory esophagitis * 03/02/17 patient with fever of 101 overnight and with Sputum Culture 02/24/17 came back positive for Klebsiella and Yeast therefore Imipenem 500 mg IV Q12H and Micofungin 100 mg IV Q24H were both started 02/27/17 Patient likely has Sjogren's Syndrome considering the results of autoimmune testing. He will need outpatient follow up with Rheumatology Rheumatology was consulted and discussion was had as seen above. Microbiology: * Aspergillus: negative * Q fever: negative * Hepatitis Panel: negative * Blood parasites: negative * Hepatitis panel: negative * Coccidiodes F-Ag Ab/TP-Ag Ab: negative * C. difficle toxin: negative X7 * Quantaferon:L indeterminate * S. pneumoniae Ag: negative * Group B Strep Antigen: not required * N. meningitis: not required * Urine legionella: negative * HIV: negative X3 * Brucella: negative * RPR: nonreactive Positive Microbiology--which have all been treated during hospitalization. 01/01: Blood: Coag neg Staph (1/2) bottles; 01/02 Blood cultures negative X2 5 days 01/03; 01/06; 01/07 Mycobacterial Culture: no fast acid bacilli identified; no Mycobacterium isolated for 6 weeks X3 Bone Marrow: no acid fast isolated 01/26: Sputum: Yeast 01/30: Bronchial washings: aristeo albicans and coag negative Stap 02/07: Sputum: Raoultella Planticola and Enterobacter Cloacae 02/10: Bone Marrow Staphyloccous Sp Coag 02/12: Sputum: Hafnia Alvei Latest: 02/21/17 Blood Culture is negative 02/23/17 Urine Culture is negative Immunology: * CHAVA: positive; 1:160, speckled, ANCA: negative, Proteinase 3: <1.0, Myeloperoxidase <1.0, [place]elongo Ab <1.0 UDS: negative 3). Hx Elevated Troponin: likely secondary to episode of V Tach. Cardiac Cath performed by Dr. Pryor 01/27/17 showed clean coronaries. Therapeutic Lovenox was discontinued. Patient is currently on telemetry. Amiodarone 200mg PO bid 03/03: Patient having chest pain; BENITEZ and EKG ordered. 4). Hyponatremia: Monitor 5). Hx Bacteremia: repeat cultures have been negative to date. Latest Blood cultures from 02/13/17 show no growth after 5 days and from 02/12/17 no growth for 5 days Blood cultures 02/19/17: no growth thus far Urine culture (02/19/17): no growth, Procalcitonin (02/19/17): 0.58 Blood cultures 02/21/17: pending 6). Hx of TB Prophylaxis: he was on INH upon admission but currently not on anything given transaminitis. Sputum x [address] Chest 01/26/17 shows no change when compared to 01/20/17 (please see full reports). 7). Hx Diffuse Rash: resolved 8). Hx Pancreatic Lesion: F/U CT Abdomen in 6 months; GI seen during hospitalization. 9). 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 Aspirin 10). Hx Constipation: resolved 11). Anemia likely secondary to Chronic Disease: stable 12). Hx Hypothyroidism: levothyroxine 88mcg PO q AM; f/u thyroid studies; thyroid US unremarkable 13). Hx Vertigo: resolved and was likely secondary to the Minocycline that patient was on at the time of admission and once discontinued, this issue resolved and has not recurred 14). Hx Diarrhea: resolved 15). Hx Bilateral Lower Leg Edema: duplex are negative, much improved and now mild non-pitting edema involving the ankles 16). Hx Elevated LFTs: monitor; hepatitis negative 17). History of hypothyroidism. TSH: 9.9 on 01/26/17, repeat thyroid panel: TSH: 7.32, Free t4: 1.51, Total T3: 0.584, T3 3rd generation 7.32, consult: endocrinology: Synthroid was increased to 112 mcg PO 1x/day 18). Prophylactic measure: Lovenox 40mg subqdaily <Tanika Mccartney V - Last Filed: 03/04/17 07:10> Objective - Vital Signs/Intake and Output Vital Signs (last 24 hours): Temp Pulse Resp BP Pulse Ox 99.1 F 84 20 125/69 96 03/04/17 04:20 03/03/17 23:55 03/03/17 23:55 03/03/17 23:55 03/03/17 23:55 Intake and Output: 03/04/17 03/04/17 06:59 18:59 Intake Total 360 Output Total 950 Balance -590 - Medications Medications: Current Medications Acetaminophen (Tylenol 325mg Tab) 650 mg PO Q6 PRN PRN Reason: Fever >100.4 F Last Admin: 03/01/17 00:24 Dose: 650 mg Amiodarone HCl (Cordarone) 200 mg PO BID [facility] Last Admin: 03/03/17 17:43 Dose: 200 mg Calcium/Vitamin D (Oscal-D 250 Mg-125 Units Tab) 2 tab PO TID [facility] Last Admin: 03/03/17 17:43 Dose: 2 tab Enoxaparin Sodium (Lovenox) 40 mg SC DAILY [facility] Last Admin: 03/03/17 09:56 Dose: 40 mg Fluconazole (Diflucan) 100 mg PO DAILY [facility] Guaifenesin (Mucinex La) 600 mg PO BID [facility] Last Admin: 03/03/17 17:43 Dose: 600 mg Imipenem/Cilastatin Sodium 500 (mg/ Sodium Chloride) 100 mls @ 100 mls/hr IVPB Q12 [facility] Last Admin: 03/03/17 22:18 Dose: 100 mls/hr Ibuprofen (Motrin Tab) 600 mg PO TID PRN PRN Reason: fever/pain Last Admin: 03/04/17 03:28 Dose: 600 mg Ipratropium Louann (Atrovent Hfa) 2 puff IH RQ6 PRN PRN Reason: Shortness of Breath Lactic Acid (Lac-Hydrin 12% Lotion (225 G)) 225 gm EXT Q1H PRN PRN Reason: Dry skin Last Admin: 02/04/17 18:34 Dose: 1 applic Levothyroxine Sodium (Synthroid) 112 mcg PO DAILY@0630 [facility] Last Admin: 03/04/17 05:48 Dose: 112 mcg Ondansetron HCl (Zofran Inj) 4 mg IVP Q6H PRN PRN Reason: nausea Last Admin: 02/14/17 18:46 Dose: 4 mg Pantoprazole Sodium (Protonix Ec Tab) 40 mg PO DAILY [facility] Last Admin: 03/03/17 10:44 Dose: 40 mg Prednisone (Prednisone Tab) 60 mg PO DAILY [facility] Last Admin: 03/03/17 09:57 Dose: 60 mg Prednisone (Prednisone Tab) 5 mg PO DAILY [facility] Last Admin: 03/03/17 09:57 Dose: 5 mg Promethazine HCl/Codeine (Phenergan/Codeine Oral Syrup) 5 ml PO Q4 PRN PRN Reason: Cough Last Admin: 02/14/17 18:15 Dose: 5 ml - Labs Labs: 03/03/17 06:48 03/03/17 06:48 PT 13.2 SECONDS (9.7-12.2) H 01/20/17 19:37 INR 1.2 01/20/17 19:37 APTT 32 SECONDS (21-34) 01/20/17 19:37 Attending/Attestation - Attestation I have personally seen and examined this patient.: Yes I have fully participated in the care of the patient.: Yes I have reviewed all pertinent clinical information, including history, physical exam and plan: Yes Notes (Text): This is late computer entry for 03/03/17. Patient seen, examined, and case discussed with day-time resident. patient seen this morning complaining of chest pain, tender to sternum, exacerbate with movement. Patient ordered for EKG and BENITEZ. BENITEZ is negative. Patient is Primaxin 500mg IV Q 12hours (active since 02/27/17) and Micafungin Q 24hours (active since 02/27/17) for Sputum culture: +ESBL Klebsiella and yeast. Will monitor for fever. Afebrile over night. Patient has persistent ESR, LDH, CRP, and white count. Patient started on PO prednisone given consideration for Adult Still's Disease and treatment for IV antibiotics for persistent pneumonia. Dr Dumont (Rheum) on consult-->help appreciated Patient will need to have jin care and referral to the clinic/ongoing referral with Rheumatology when stable for discharge. 1). Adult Still's Disease * Consult: Dr Dumont (rheumatology)-->given consideration for Adult Still's Disease in light of extensive workup for fever unknown origin. Based on colleagues A/P over last week: This is certainly a diagnosis of exclusion: please see the work up below The following support the diagnosis of Adult Still's Disease: * Fever: these have roughly been consistant at the same time at night * Maculopapular Shobonier colored rash: this was present on face, neck, and upper chest on 01/01/17 * Arthralgias: predominanly involving the bilateral shoulders * Myalgias: complained of neck and bilateral upper arm myalgias for a few days starting on 02/12/17 * Pharyngitis: he has had some soreness/dryness in his throat on and off since admission * Lymphadenopathy: bilateral posterior cervical machine chain maker lymphadenopathy persists on exam * Leukocytosis: he has had waxing and waing elevated WBC but alway above 15,000 * Pulmonary Infiltrates: he has had subpleural infilterates with pleural effusions as seen on his CT Chests * Pericardial Effusion: although he has not complained of symptoms consistent with pericarditis (difficulty breathing with laying flat although he has had dyspnea on and off), trace circumferential pericardial effusion on 2D Echocardiogram was noted at time of admission 01/01/17. 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 () and CRP (01/07/17, 01/09/17, 02/17/17) * Elevated Granulocytes: he has had Eosinophilia (02/15/17, 02/16/17, 02/17/17, ) * Elevated LDH: 01/07/17, 01/09/17, 01/13/17, 02/17/17-->repeat tomorrow * Elevated LFTs: he has had elevated AST (01/04/17 through 01/20/17) and elevated ALT (01/15/17 through 01/20/17 and 02/15/17 through 02/17/17) * CHAVA Positive: 02/21/17 * RF Positive: 02/21/17 Because of the above and because of the essentially negative extensive workup ( as described below) , Per my colleague, 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 For our patient who is being started on Prednisone 65 mg, we may decrease the daily dose of Prednisone every week with the aim of reducing Prednisone dosing to below 10 mg daily within eight weeks, then discontinuing Prednisone therapy over the subsequent three months. * In order to protect his bones from the Prednisone, Calcium/Vitamin D 250/125 2 tablet by mouth 3x/day has been ordered as this is what our pharmacy carries here. Our goal is Calcium Citrate 1,200 mg and Vitamin D 800 IU in a 24 hour period of time in divided doses and not all at once. * Patient will need thorough follow up with Rheumatology as an outpatient when he is ready for discharge. 2). Leukocytosis; Fever of Unknown Origin * Pulmonary (Dr. Mckeon) on board * Infectious Disease (Dr. Calzada/Dr. Carias) on board * Heme-onc (Dr. Jennifer Alexandre) on board * Rheumatology (Dr. Dumont) on board * s/p bronchoscopy/bronchial washing for Thursday01/30/17 and this was performed: culture showed Aristeo albicans and Coag Neg Staph and Sputum AFB is negative--- >completed Diflucan 200 mg IV on 02/03/17 and treated through 02/13/17. * CT scan Chest/Abdomen/Pelvis (02/03/17): largely stable findings within the chest; included septa; thickening; persistent bibasilar consolidation bronchiesctasis; lymphadenopathy including mediastinal and axillary lymph nodes ; cervical lymphadenopathy present * Sputum Culture 02/07/17 showed Raoultella planticola and Enterobacter cloacae and patient was on Ceftriaxone from 02/03/17 through 02/13/17. * S/P Bone Marrow Bx 02/10/17 and Bone Marrow Cultures are currently negative--> . 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 Diffuse liner/tubular shaped increase radiotracer uptake at the left abdomen suspicious for uptake in the left colon. Correlate clinically for colitis * CT Abdomen/Pelvis w PO contrast (02/18/17): bibasal or consolidation. Small bulla/bleb in right lower lobe. No change. Right renal cyst with a calcification in the wall of the cyst. No stones are seen in the left kidney. Small hiatal hernia. Very small pleural effusions bilaterally. Small inguinal hernia containing fat bilaterally * Dr. Pete Gresham spoke with IR Dr. Rosa Jacobson (02/25/17): Dr. Jacobson reveiwed prior CTs and unfortunately does not have a seeable area for FNA biopsy. He recommended repeat CT Chest and this has been done showing extensive bilateral lower lobe fibrotic changes, stable to slightly increased bilateral lower lobe consolidations and ground glass opacities, septal thickening present, subplueral cysts, trace bilateral plueral effusions * CT Soft Neck has also been ordered for 02/26/17 and there is NO evidence of mass , NO abnormal enhancement or pathologic lymphadenopathy, apparent mild circumferential mural thickening of the visualized upper thoracic esophageal wall is nonspecific and could represent infectious/inflammatory esophagitis * 02/27/17 patient with fever of 100.2 overnight and with Sputum Culture 02/24/17 came back positive for Klebsiella and Yeast therefore Imipenem 500 mg IV Q12H and Micafungin 100 mg IV Q24H were both started 02/27/17 * Also, possible Adult Still's Disease, and patient has positive antibiodies suggestive for Sjogren's Syndrome considering the results of autoimmune testing. He will need outpatient follow up with Rheumatology. Microbiology: * Aspergillus: negative * Q fever: negative * Hepatitis Panel: negative * Blood parasites: negative * Hepatitis panel: negative * Coccidiodes F-Ag Ab/TP-Ag Ab: negative * C. difficle toxin: negative X7 * Quantaferon:L indeterminate * S. pneumoniae Ag: negative * Group B Strep Antigen: not required * N. meningitis: not required * Urine legionella: negative * HIV: negative X3 * Brucella: negative * RPR: nonreactive Positive Microbiology--which have all been treated during hospitalization. 01/01: Blood: Coag neg Staph (1/2) bottles; 01/02 Blood cultures negative X2 5 days 01/03; 01/06; 01/07 Mycobacterial Culture: no fast acid bacilli identified; no Mycobacterium isolated for 6 weeks X3 Bone Marrow: no acid fast isolated 01/26: Sputum: Yeast 01/30: Bronchial washings: aristeo albicans and coag negative Stap 02/07: Sputum: Raoultella Planticola and Enterobacter Cloacae 02/10: Bone Marrow Staphyloccous Sp Coag 02/12: Sputum: Hafnia Alvei 02/24: Sputum: ESBL+ Klebsiella and Yeast Latest: 02/21/17 Blood Culture is negative 02/23/17 Urine Culture is negative Immunology: * CHAVA: positive; 1:160/ 1:320 speckled, ANCA: negative, Proteinase 3: <1.0, Myeloperoxidase <1.0, Montelongo Ab <1.0 * Rheumatoid Factor: 22 * Anti SS-A/SS-B: >8.0 X2 * negative Montelongo Antibody * Snegative SM/[employer] antibody * Negative DsDNA * Positive Actin Igg Antibody * Positiev Thyroperoxidase Ab * negative GBM * Negative Parietal Cell UDS: negative 3). Hx Elevated Troponin: likely secondary to episode of V Tach. Cardiac Cath performed by Dr. Pryor 01/27/17 showed clean coronaries. Therapeutic Lovenox was discontinued. Patient is currently on telemetry. Amiodarone 200mg PO bid 4). Hyponatremia: Monitor 5). Hx Bacteremia: repeat cultures have been negative to date. Blood cultures from 02/13/17 show no growth after 5 days and from 02/12/17 no growth for 5 days Blood cultures 02/19/17: no growth thus far Urine culture (02/19/17): no growth, Procalcitonin (02/19/17): 0.58 Blood cultures 02/21/17: negative to date 6). Hx of TB Prophylaxis: he was on INH upon admission but currently not on anything given transaminitis. Sputum x [address] Chest 01/26/17 shows no change when compared to 01/20/17 (please see full reports). 7). Hx Diffuse Rash: resolved 8). Hx Pancreatic Lesion: F/U CT Abdomen in 6 months; GI seen during hospitalization. 9). 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 Aspirin; Resolved in repeat Duplex 10). Hx Constipation: resolved 11). Anemia likely secondary to Chronic Disease: stable 13). Hx Vertigo: resolved and was likely secondary to the Minocycline that patient was on at the time of admission and once discontinued, this issue resolved and has not recurred 14). Hx Diarrhea: resolved 15). Hx Bilateral Lower Leg Edema: duplex are negative, much improved and now mild non-pitting edema involving the ankles 16). Hx Elevated LFTs: monitor; hepatitis negative 17). History of hypothyroidism. TSH: 9.9 on 01/26/17, repeat thyroid panel: TSH: 7.32, Free t4: 1.51, Total T3: 0.584, T3 3rd generation 7.32, consult: endocrinology: Synthroid was increased to 112 mcg PO 1x/day 18). Prophylactic measure: Lovenox 40mg subqdaily
[2017-03-03 08:52] LABS: NEUTROPHIL 87 % (50-75); TOTAL CELLS COUNTED 100
[2017-03-03 09:03] LABS: ERYTHROCYTE SEDIMENTATION RATE 132 mm/hr (0-15)
[2017-03-03] MEDS: Calcium-Vit D 250 mg-125 Units Tab UD PO SCH ×3 (09:56→17:43)
[2017-03-03] MEDS: guaiFENesin 600 mg ER Tab PO SCH ×2 (09:56→17:43)
[2017-03-03] MEDS: Enoxaparin 40 mg Syringe SC SCH (09:56)
[2017-03-03] MEDS: Pantoprazole 40 mg EC Tab PO SCH (10:44)
[2017-03-03] MEDS: Micafungin 100 MG in Sodium Chloride 0.9% 100 ML IVPB SCH (13:29)
[2017-03-04] MEDS: Levothyroxine 112 MCG TAB PO SCH (05:48)
--- NOTE | 2017-03-04 07:32 | CP.PCM.PN ---
<Loan Reyna - Last Filed: 03/04/17 19:07> Subjective - Date & Time of Evaluation Date of Evaluation: 03/04/17 Time of Evaluation: 07:30 - Subjective Subjective: Patient seen and examined at bedside. Patient doing well at this time except for the chest pain he was complaining of yesterday. Patient says he is still having pain that worsens when he lays back but denies remission of pain with leaning forward. Patient admits to associated cough productive of white sputum. Patient had a fever over night but denies currently. Pt denies chills/SOB/AP/N/V /D. Objective - Vital Signs/Intake and Output Vital Signs (last 24 hours): Temp Pulse Resp BP Pulse Ox 99.1 F 84 20 125/69 96 03/04/17 04:20 03/03/17 23:55 03/03/17 23:55 03/03/17 23:55 03/03/17 23:55 Intake and Output: 03/04/17 03/04/17 06:59 18:59 Intake Total 360 Output Total 950 Balance -590 - Medications Medications: Current Medications Acetaminophen (Tylenol 325mg Tab) 650 mg PO Q6 PRN PRN Reason: Fever >100.4 F Last Admin: 03/01/17 00:24 Dose: 650 mg Amiodarone HCl (Cordarone) 200 mg PO BID [facility] Last Admin: 03/03/17 17:43 Dose: 200 mg Calcium/Vitamin D (Oscal-D 250 Mg-125 Units Tab) 2 tab PO TID [facility] Last Admin: 03/03/17 17:43 Dose: 2 tab Enoxaparin Sodium (Lovenox) 40 mg SC DAILY [facility] Last Admin: 03/03/17 09:56 Dose: 40 mg Fluconazole (Diflucan) 100 mg PO DAILY [facility] Guaifenesin (Mucinex La) 600 mg PO BID [facility] Last Admin: 03/03/17 17:43 Dose: 600 mg Imipenem/Cilastatin Sodium 500 (mg/ Sodium Chloride) 100 mls @ 100 mls/hr IVPB Q12 [facility] Last Admin: 03/03/17 22:18 Dose: 100 mls/hr Ibuprofen (Motrin Tab) 600 mg PO TID PRN PRN Reason: fever/pain Last Admin: 03/04/17 03:28 Dose: 600 mg Ipratropium Hubbell (Atrovent Hfa) 2 puff IH RQ6 PRN PRN Reason: Shortness of Breath Lactic Acid (Lac-Hydrin 12% Lotion (225 G)) 225 gm EXT Q1H PRN PRN Reason: Dry skin Last Admin: 02/04/17 18:34 Dose: 1 applic Levothyroxine Sodium (Synthroid) 112 mcg PO DAILY@0630 [facility] Last Admin: 03/04/17 05:48 Dose: 112 mcg Ondansetron HCl (Zofran Inj) 4 mg IVP Q6H PRN PRN Reason: nausea Last Admin: 02/14/17 18:46 Dose: 4 mg Pantoprazole Sodium (Protonix Ec Tab) 40 mg PO DAILY [facility] Last Admin: 03/03/17 10:44 Dose: 40 mg Prednisone (Prednisone Tab) 60 mg PO DAILY [facility] Last Admin: 03/03/17 09:57 Dose: 60 mg Prednisone (Prednisone Tab) 5 mg PO DAILY [facility] Last Admin: 03/03/17 09:57 Dose: 5 mg Promethazine HCl/Codeine (Phenergan/Codeine Oral Syrup) 5 ml PO Q4 PRN PRN Reason: Cough Last Admin: 02/14/17 18:15 Dose: 5 ml - Labs Labs: 03/03/17 06:48 03/03/17 06:48 PT 13.2 SECONDS (9.7-12.2) H 01/20/17 19:37 INR 1.2 01/20/17 19:37 APTT 32 SECONDS (21-34) 01/20/17 19:37 - Constitutional Appears: Non-toxic, No Acute Distress - Head Exam Head Exam: ATRAUMATIC, NORMAL INSPECTION, NORMOCEPHALIC - Eye Exam Eye Exam: EOMI - ENT Exam ENT Exam: Mucous Membranes Moist - Respiratory Exam Respiratory Exam: Clear to Ausculation Bilateral, NORMAL BREATHING PATTERN - Cardiovascular Exam Cardiovascular Exam: REGULAR RHYTHM, Rubs. absent: Bradycardia, Tachycardia - GI/Abdominal Exam GI & Abdominal Exam: Soft, Normal Bowel Sounds. absent: Distended, Tenderness - Extremities Exam Extremities Exam: Normal Inspection. 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: please see the work up below The following support the diagnosis of Adult Still's Disease: * Fever: these have roughly been consistant at the same time at night * Maculopapular [place] colored rash: this was present on face, neck, and upper chest on 01/01/17 * Arthralgias: predominanly involving the bilateral shoulders * Myalgias: complained of neck and bilateral upper arm myalgias for a few days starting on 02/12/17 * Pharyngitis: he has had some soreness/dryness in his throat on and off since admission * Lymphadenopathy: bilateral posterior cervical chain mender lymphadenopathy persists on exam * Leukocytosis: he has had waxing and waing elevated WBC but alway above 15,000 * Pulmonary Infiltrates: he has had subpleural infilterates with pleural effusions as seen on his CT Chests * Pericardial Effusion: although he has not complained of symptoms consistent with pericarditis (difficulty breathing with laying flat although he has had dyspnea on and off), trace circumferential pericardial effusion on 2D Echocardiogram was noted at time of admission 01/01/17. 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 For our patient who is being started on Prednisone 65 mg, we may decrease the daily dose of Prednisone every week with the aim of reducing Prednisone dosing to below 10 mg daily within eight weeks, then discontinuing Prednisone therapy over the subsequent three months. * In order to protect his bones from the Prednisone, Calcium/Vitamin D 250/125 2 tablet by mouth 3x/day has been ordered as this is what our pharmacy carries here. Our goal is Calcium Citrate 1,200 mg and Vitamin D 800 IU in a 24 hour period of time in divided doses and not all at once. * Patient will need thorough follow up with Rheumatology as an outpatient when he is ready for discharge. Dr. Dumont was consulted for reumatological recommendations. He suggested the steroid be tapered to 10 mg and the patient continues on this dose for >3 months. He offered to see this patient as a f/u after discharge pending authorization and referral from the clinic. 2). Leukocytosis; Fever of Unknown Origin * Pulmonary (Dr. Mckeon) on board * Infectious Disease (Dr. Calzada/Dr. Carias) on board * Heme-onc (Dr. Jennifer Alexandre) on board * s/p bronchoscopy/bronchial washing for Thursday01/30/17 and this was performed: culture showed Aristeo albicans and Coag Neg Staph and Sputum AFB is negative--- >completed Diflucan 200 mg IV on 02/03/17 and treated through 02/13/17. * CT scan Chest/Abdomen/Pelvis (02/03/17): largely stable findings within the chest; included septa; thickening; persistent bibasilar consolidation bronchiesctasis; lymphadenopathy including mediastinal and axillary lymph nodes ; cervical lymphadenopathy present * Sputum Culture 02/07/17 showed Raoultella planticola and Enterobacter cloacae and patient was on Ceftriaxone from 02/03/17 through 02/13/17. * S/P Bone Marrow Bx 02/10/17 and Bone Marrow Cultures are currently negative--> . 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 Diffuse liner/tubular shaped increase radiotracer uptake at the left abdomen suspicious for uptake in the left colon. Correlate clinically for colitis * CT Abdomen/Pelvis w PO contrast (02/18/17): bibasal or consolidation. Small bulla/bleb in right lower lobe. No change. Right renal cyst with a calcification in the wall of the cyst. No stones are seen in the left kidney. Small hiatal hernia. Very small pleural effusions bilaterally. Small inguinal hernia containing fat bilaterally * I spoke with IR Dr. Rosa Jacobson (02/25/17): Dr. Jacobson reveiwed prior CTs and unfortunately does not have a seeable area for FNA biopsy. He recommended repeat CT Chest and this has been done showing extensive bilateral lower lobe fibrotic changes, stable to slightly increased bilateral lower lobe consolidations and ground glass opacities, septal thickening present, subplueral cysts, trace bilateral plueral effusions * CT Soft Neck has also been ordered for 02/26/17 and there is NO evidence of mass , NO abnormal enhancement or pathologic lymphadenopathy, apparent mild circumferential mural thickening of the visualized upper thoracic esophageal wall is nonspecific and could represent infectious/inflammatory esophagitis * 03/02/17 patient with fever of 101 overnight and with Sputum Culture 02/24/17 came back positive for Klebsiella and Yeast therefore Imipenem 500 mg IV Q12H and Micofungin 100 mg IV Q24H were both started 02/27/17 Patient likely has Sjogren's Syndrome considering the results of autoimmune testing. He will need outpatient follow up with Rheumatology Rheumatology was consulted and discussion was had as seen above. Microbiology: * Aspergillus: negative * Q fever: negative * Hepatitis Panel: negative * Blood parasites: negative * Hepatitis panel: negative * Coccidiodes F-Ag Ab/TP-Ag Ab: negative * C. difficle toxin: negative X7 * Quantaferon:L indeterminate * S. pneumoniae Ag: negative * Group B Strep Antigen: not required * N. meningitis: not required * Urine legionella: negative * HIV: negative X3 * Brucella: negative * RPR: nonreactive Positive Microbiology--which have all been treated during hospitalization. 01/01: Blood: Coag neg Staph (1/2) bottles; 01/02 Blood cultures negative X2 5 days 01/03; 01/06; 01/07 Mycobacterial Culture: no fast acid bacilli identified; no Mycobacterium isolated for 6 weeks X3 Bone Marrow: no acid fast isolated 01/26: Sputum: Yeast 01/30: Bronchial washings: aristeo albicans and coag negative Stap 02/07: Sputum: Raoultella Planticola and Enterobacter Cloacae 02/10: Bone Marrow Staphyloccous Sp Coag 02/12: Sputum: Hafnia Alvei Latest: 02/21/17 Blood Culture is negative 02/23/17 Urine Culture is negative Immunology: * CHAVA: positive; 1:160, speckled, ANCA: negative, Proteinase 3: <1.0, Myeloperoxidase <1.0, [place] Ab <1.0 UDS: negative 3). Hx Elevated Troponin: likely secondary to episode of V Tach. Cardiac Cath performed by Dr. Pryor 01/27/17 showed clean coronaries. Therapeutic Lovenox was discontinued. Patient is currently on telemetry. Amiodarone 200mg PO bid 03/03: Patient having chest pain; BENITEZ and EKG ordered. BENITEZ negative. EKG showing possible pericarditis. Repeat EKG and echo ordered 03/04. Repeat BC and UC. 4). Hyponatremia: Monitor 5). Hx Bacteremia: repeat cultures have been negative to date. Latest Blood cultures from 02/13/17 show no growth after 5 days and from 02/12/17 no growth for 5 days Blood cultures 02/19/17: no growth thus far Urine culture (02/19/17): no growth, Procalcitonin (02/19/17): 0.58 Blood cultures 02/21/17: pending 6). Hx of TB Prophylaxis: he was on INH upon admission but currently not on anything given transaminitis. Sputum x [address] Chest 01/26/17 shows no change when compared to 01/20/17 (please see full reports). 7). Hx Diffuse Rash: resolved 8). Hx Pancreatic Lesion: F/U CT Abdomen in 6 months; GI seen during hospitalization. 9). 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 Aspirin 10). Hx Constipation: resolved 11). Anemia likely secondary to Chronic Disease: stable 12). Hx Hypothyroidism: levothyroxine 88mcg PO q AM; f/u thyroid studies; thyroid US unremarkable 13). Hx Vertigo: resolved and was likely secondary to the Minocycline that patient was on at the time of admission and once discontinued, this issue resolved and has not recurred 14). Hx Diarrhea: resolved 15). Hx Bilateral Lower Leg Edema: duplex are negative, much improved and now mild non-pitting edema involving the ankles 16). Hx Elevated LFTs: monitor; hepatitis negative 03/04: discontinued tylenol and motrin; continue to follow LFTs 17). History of hypothyroidism. TSH: 9.9 on 01/26/17, repeat thyroid panel: TSH: 7.32, Free t4: 1.51, Total T3: 0.584, T3 3rd generation 7.32, consult: endocrinology: Synthroid was increased to 112 mcg PO 1x/day 18). Prophylactic measure: Lovenox 40mg subqdaily <Tanika Mccartney V - Last Filed: 03/04/17 23:20> Objective - Vital Signs/Intake and Output Vital Signs (last 24 hours): Temp Pulse Resp BP Pulse Ox 98.2 F 72 20 133/77 97 03/04/17 15:29 03/04/17 15:29 03/04/17 15:29 03/04/17 15:29 03/04/17 15:29 - Medications Medications: Current Medications Amiodarone HCl (Cordarone) 200 mg PO BID [facility] Last Admin: 03/04/17 18:38 Dose: 200 mg Aspirin (Aspirin) 325 mg PO BID [facility] Last Admin: 03/04/17 18:38 Dose: 325 mg Calcium/Vitamin D (Oscal-D 250 Mg-125 Units Tab) 2 tab PO TID [facility] Last Admin: 03/04/17 18:38 Dose: 2 tab Enoxaparin Sodium (Lovenox) 40 mg SC DAILY [facility] Last Admin: 03/04/17 10:00 Dose: 40 mg Fluconazole (Diflucan) 100 mg PO DAILY [facility] Last Admin: 03/04/17 09:55 Dose: 100 mg Guaifenesin (Mucinex La) 600 mg PO BID [facility] Last Admin: 03/04/17 18:38 Dose: 600 mg Imipenem/Cilastatin Sodium 500 (mg/ Sodium Chloride) 100 mls @ 100 mls/hr IVPB Q12 [facility] Last Admin: 03/04/17 21:48 Dose: 100 mls/hr Ipratropium Hubbell (Atrovent Hfa) 2 puff IH RQ6 PRN PRN Reason: Shortness of Breath Lactic Acid (Lac-Hydrin 12% Lotion (225 G)) 225 gm EXT Q1H PRN PRN Reason: Dry skin Last Admin: 02/04/17 18:34 Dose: 1 applic Levothyroxine Sodium (Synthroid) 112 mcg PO DAILY@0630 [facility] Last Admin: 03/04/17 05:48 Dose: 112 mcg Ondansetron HCl (Zofran Inj) 4 mg IVP Q6H PRN PRN Reason: nausea Last Admin: 02/14/17 18:46 Dose: 4 mg Pantoprazole Sodium (Protonix Ec Tab) 40 mg PO DAILY [facility] Last Admin: 03/04/17 10:00 Dose: 40 mg Prednisone (Prednisone Tab) 60 mg PO DAILY [facility] Last Admin: 03/04/17 09:52 Dose: 60 mg Prednisone (Prednisone Tab) 5 mg PO DAILY [facility] Last Admin: 03/04/17 09:52 Dose: 5 mg Promethazine HCl/Codeine (Phenergan/Codeine Oral Syrup) 5 ml PO Q4 PRN PRN Reason: Cough Last Admin: 03/04/17 18:38 Dose: 5 ml - Labs Labs: 03/04/17 07:40 03/04/17 07:40 PT 13.2 SECONDS (9.7-12.2) H 01/20/17 19:37 INR 1.2 01/20/17 19:37 APTT 32 SECONDS (21-34) 01/20/17 19:37 Attending/Attestation - Attestation I have personally seen and examined this patient.: Yes I have fully participated in the care of the patient.: Yes I have reviewed all pertinent clinical information, including history, physical exam and plan: Yes Notes (Text): Patient seen, examined, and case discussed with day-time resident. patient seen this morning complaining of chest pain, tender to sternum, exacerbate with movement. BENITEZ is negative. Per cardiology, EKG consistent with percarditis. Recommended for echocardiogram (repeat), and Aspirin 325mg PO BID. In light of Tmax: 100.1F, repeat blood and urine cultures. Patient does not complain of abdominal pain nor diarrhea symptoms to suggest C. Dif. Tylenol and Motrin d/c in light of increasing LFTs and change in Aspirin dose. Patient is Primaxin 500mg IV Q 12hours (active since 02/27/17) and Micafungin Q 24hours (active since 02/27/17-03/03/17) for Sputum culture: +ESBL Klebsiella and yeast; which do not need dose adjustment in hepatic impairment. Discontinue Fluonazole in light of LFTs. Patient started on PO prednisone (total 65mg PO daily) given consideration for Adult Still's Disease and treatment for IV antibiotic for persistent pneumonia. Dr Dumont (Rheum) on consult-->help appreciated Patient will need to have jin care and referral to the clinic/ongoing referral with Rheumatology when stable for discharge. Assessment/Plan 1). Adult Still's Disease * Consult: Dr Dumont (rheumatology)-->given consideration for Adult Still's Disease in light of extensive workup for fever unknown origin. Based on colleagues A/P over last week: This is certainly a diagnosis of exclusion: please see the work up below The following support the diagnosis of Adult Still's Disease: * Fever: these have roughly been consistant at the same time at night * Maculopapular [place] colored rash: this was present on face, neck, and upper chest on 01/01/17 * Arthralgias: predominanly involving the bilateral shoulders * Myalgias: complained of neck and bilateral upper arm myalgias for a few days starting on 02/12/17 * Pharyngitis: he has had some soreness/dryness in his throat on and off since admission * Lymphadenopathy: bilateral posterior cervical chain mender lymphadenopathy persists on exam * Leukocytosis: he has had waxing and waing elevated WBC but alway above 15,000 * Pulmonary Infiltrates: he has had subpleural infilterates with pleural effusions as seen on his CT Chests * Pericardial Effusion: although he has not complained of symptoms consistent with pericarditis (difficulty breathing with laying flat although he has had dyspnea on and off), trace circumferential pericardial effusion on 2D Echocardiogram was noted at time of admission 01/01/17; confirmed pericarditis 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 () and CRP (01/07/17, 01/09/17, 02/17/17) * Elevated Granulocytes: he has had Eosinophilia (02/15/17, 02/16/17, 02/17/17, ) * Elevated LDH: 01/07/17, 01/09/17, 01/13/17, 02/17/17, 03/03/17 * Elevated LFTs: he has had elevated AST (01/04/17 through 01/20/17) and elevated ALT (01/15/17 through 01/20/17 and 02/15/17 through 02/17/17) * CHAVA Positive: 02/21/17 * RF Positive: 02/21/17 Because of the above and because of the essentially negative extensive workup ( as described below) , Per my colleague, 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 For our patient who is being started on Prednisone 65 mg, we may decrease the daily dose of Prednisone every week with the aim of reducing Prednisone dosing to below 10 mg daily within eight weeks, then discontinuing Prednisone therapy over the subsequent three months. * In order to protect his bones from the Prednisone, Calcium/Vitamin D 250/125 2 tablet by mouth 3x/day has been ordered as this is what our pharmacy carries here. Our goal is Calcium Citrate 1,200 mg and Vitamin D 800 IU in a 24 hour period of time in divided doses and not all at once. * Patient will need thorough follow up with Rheumatology as an outpatient when he is ready for discharge. 2). Leukocytosis; Fever of Unknown Origin * Pulmonary (Dr. Mckeon) on board * Infectious Disease (Dr. Calzada/Dr. Carias) on board * Heme-onc (Dr. Jennifer Alexandre) on board * Rheumatology (Dr. Dumont) on board * s/p bronchoscopy/bronchial washing for Thursday01/30/17 and this was performed: culture showed Aristeo albicans and Coag Neg Staph and Sputum AFB is negative--- >completed Diflucan 200 mg IV on 02/03/17 and treated through 02/13/17. * CT scan Chest/Abdomen/Pelvis (02/03/17): largely stable findings within the chest; included septa; thickening; persistent bibasilar consolidation bronchiesctasis; lymphadenopathy including mediastinal and axillary lymph nodes ; cervical lymphadenopathy present * Sputum Culture 02/07/17 showed Raoultella planticola and Enterobacter cloacae and patient was on Ceftriaxone from 02/03/17 through 02/13/17. * S/P Bone Marrow Bx 02/10/17 and Bone Marrow Cultures are currently negative--> . 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 Diffuse liner/tubular shaped increase radiotracer uptake at the left abdomen suspicious for uptake in the left colon. Correlate clinically for colitis * CT Abdomen/Pelvis w PO contrast (02/18/17): bibasal or consolidation. Small bulla/bleb in right lower lobe. No change. Right renal cyst with a calcification in the wall of the cyst. No stones are seen in the left kidney. Small hiatal hernia. Very small pleural effusions bilaterally. Small inguinal hernia containing fat bilaterally * Dr. Pete Gresham spoke with IR Dr. Rosa Jacobson (02/25/17): Dr. Jacobson reveiwed prior CTs and unfortunately does not have a seeable area for FNA biopsy. He recommended repeat CT Chest and this has been done showing extensive bilateral lower lobe fibrotic changes, stable to slightly increased bilateral lower lobe consolidations and ground glass opacities, septal thickening present, subplueral cysts, trace bilateral plueral effusions * CT Soft Neck has also been ordered for 02/26/17 and there is NO evidence of mass , NO abnormal enhancement or pathologic lymphadenopathy, apparent mild circumferential mural thickening of the visualized upper thoracic esophageal wall is nonspecific and could represent infectious/inflammatory esophagitis * 02/27/17 patient with fever of 100.2 overnight and with Sputum Culture 02/24/17 came back positive for Klebsiella and Yeast therefore Imipenem 500 mg IV Q12H and Micafungin 100 mg IV Q24H were both started 02/27/17 * Also, possible Adult Still's Disease, and patient has positive antibiodies suggestive for Sjogren's Syndrome considering the results of autoimmune testing. He will need outpatient follow up with Rheumatology. * 03/04/17: Tmax: 100.1F, Leukocytosis (in light of PO steroid); repeated blood and urine to r/o other infection Microbiology: * Aspergillus: negative * Q fever: negative * Hepatitis Panel: negative * Blood parasites: negative * Hepatitis panel: negative * Coccidiodes F-Ag Ab/TP-Ag Ab: negative * C. difficle toxin: negative X7 * Quantaferon:L indeterminate * S. pneumoniae Ag: negative * Group B Strep Antigen: not required * N. meningitis: not required * Urine legionella: negative * HIV: negative X3 * Brucella: negative * RPR: nonreactive Positive Microbiology--which have all been treated during hospitalization. 01/01: Blood: Coag neg Staph (1/2) bottles; 01/02 Blood cultures negative X2 5 days 01/03; 01/06; 01/07 Mycobacterial Culture: no fast acid bacilli identified; no Mycobacterium isolated for 6 weeks X3 Bone Marrow: no acid fast isolated 01/26: Sputum: Yeast 01/30: Bronchial washings: aristeo albicans and coag negative Stap 02/07: Sputum: Raoultella Planticola and Enterobacter Cloacae 02/10: Bone Marrow Staphyloccous Sp Coag 02/12: Sputum: Hafnia Alvei 02/24: Sputum: ESBL+ Klebsiella and Yeast Latest: 02/21/17 Blood Culture is negative 02/23/17 Urine Culture is negative Immunology: * CHAVA: positive; 1:160/ 1:320 speckled, ANCA: negative, Proteinase 3: <1.0, Myeloperoxidase <1.0, Montelongo Ab <1.0 * Rheumatoid Factor: 22 * Anti SS-A/SS-B: >8.0 X2 * negative Montelongo Antibody * Snegative SM/PHILANTHROPY OFFICER antibody * Negative DsDNA * Positive Actin Igg Antibody * Positiev Thyroperoxidase Ab * negative GBM * Negative Parietal Cell UDS: negative 3). Hx Elevated Troponin: likely secondary to episode of V Tach. Cardiac Cath performed by Dr. Pryor 01/27/17 showed clean coronaries. Therapeutic Lovenox was discontinued. Patient is currently on telemetry. Amiodarone 200mg PO bid 4). Hyponatremia: Monitor 5). Hx Bacteremia: repeat cultures have been negative to date. Blood cultures from 02/13/17 show no growth after 5 days and from 02/12/17 no growth for 5 days Blood cultures 02/19/17: no growth thus far Urine culture (02/19/17): no growth, Procalcitonin (02/19/17): 0.58 Blood cultures 02/21/17: negative to date 6). Hx of TB Prophylaxis: he was on INH upon admission but currently not on anything given transaminitis. Sputum x [address] Chest 01/26/17 shows no change when compared to 01/20/17 (please see full reports). 7). Hx Diffuse Rash: resolved 8). Hx Pancreatic Lesion: F/U CT Abdomen in 6 months; GI seen during hospitalization. 9). 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 Aspirin; Resolved in repeat Duplex 10). Hx Constipation: resolved 11). Anemia likely secondary to Chronic Disease: stable 13). Hx Vertigo: resolved and was likely secondary to the Minocycline that patient was on at the time of admission and once discontinued, this issue resolved and has not recurred 14). Hx Diarrhea: resolved 15). Hx Bilateral Lower Leg Edema: duplex are negative, much improved and now mild non-pitting edema involving the ankles 16). Hx Elevated LFTs: monitor; hepatitis negative; d/c tylenol and motrin 17). History of hypothyroidism. TSH: 9.9 on 01/26/17, repeat thyroid panel: TSH: 7.32, Free t4: 1.51, Total T3: 0.584, T3 3rd generation 7.32, consult: endocrinology: Synthroid was increased to 112 mcg PO 1x/day 18). Prophylactic measure: Lovenox 40mg subqdaily
[2017-03-04 08:02] LABS: BASO % 0.1 % (0.0-2.0); EOS # 0.1 K/uL (0.0-0.7); EOS % 0.3 % (0.0-4.0); HEMATOCRIT 31.8 % (35.0-51.0); LYMPH # 2.8 K/uL (1.0-4.3); LYMPH % 8.1 % (20.0-40.0); MEAN CELL VOLUME 83.9 fL (80.0-94.0); MEAN CORPUSCULAR HEMOGLOBIN 27.3 pg (27.0-31.0); MEAN CORPUSCULAR HGB CONC 32.5 g/dL (33.0-37.0); MEAN PLATELET VOLUME 7.8 fL (7.2-11.7); MONO # 0.7 K/uL (0.0-0.8); MONO % 2.2 % (0.0-10.0); RED CELL DISTRIBUTION WIDTH 18.3 % (11.5-14.5); WHITE BLOOD COUNT 33.8 K/uL (4.8-10.8)
[2017-03-04 08:09] LABS: CHLORIDE 99 mmol/L (98-107); PLATELET COUNT 623 K/uL (130-400)
[2017-03-04 08:10] LABS: POTASSIUM 4.1 mmol/L (3.6-5.2); SODIUM 131 mmol/L (132-148)
[2017-03-04 08:12] LABS: ALB/GLOB RATIO 0.6 (1.0-2.1); ALKALINE PHOSPHATASE 169 U/L (38-126); ALT/SGPT 114 U/L (21-72); AST/SGOT 124 U/L (17-59); BILIRUBIN,TOTAL 0.6 mg/dL (0.2-1.3); BLOOD UREA NITROGEN 18 mg/dL (9-20); CARBON DIOXIDE 25 mmol/L (22-30); GFR AFRICAN-AMERICAN > 60; TOTAL PROTEIN 8.3 g/dL (6.3-8.3)
[2017-03-04 08:13] LABS: GLUCOSE,RANDOM 121 mg/dL (75-110); MAGNESIUM 1.6 mg/dL (1.6-2.3)
[2017-03-04 09:05] LABS: EOSINOPHIL 1 % (0-4); NEUTROPHIL 89 % (50-75); TOTAL CELLS COUNTED 100
[2017-03-04 09:06] LABS: LARGE PLATELETS PRESENT
[2017-03-04] MEDS: guaiFENesin 600 mg ER Tab PO SCH ×2 (09:52→18:38)
[2017-03-04] MEDS: Calcium-Vit D 250 mg-125 Units Tab UD PO SCH ×3 (09:54→18:38)
[2017-03-04] MEDS: Pantoprazole 40 mg EC Tab PO SCH (10:00)
[2017-03-04] MEDS: Enoxaparin 40 mg Syringe SC SCH (10:00)
--- NOTE | 2017-03-04 12:54 | CARD ---
APPROVED REPORT EXAM: Two-dimensional and M-mode echocardiogram with Doppler and color Doppler. Other Information Quality : GoodRhythm : NSR INDICATION Abnormal EKG/Arrhythmia Dizziness and Vertigo Pericarditis Dyspnea Fever ; Tuberculosis 2D DIMENSIONS IVSd1.1 (0.7-1.1cm)LVDd4.5 (3.9-5.9cm) PWd1.0 (0.7-1.1cm)LVDs2.3 (2.5-4.0cm) FS (%) 50.1 %LVEF (%)81.5 (>50%) M-Mode DIMENSIONS RVDd1.92 (2.1-3.2cm)Left Atrium (MM)3.65 (2.5-4.0cm) IVSd1.36 (0.7-1.1cm)Aortic Root3.21 (2.2-3.7cm) LVDd4.46 (4.0-5.6cm)Aortic Cusp Exc.2.21 (1.5-2.0cm) PWd1.66 (0.7-1.1cm)FS (%) 55 % LVDs2.03 (2.0-3.8cm)LVEF (%)85 (>50%) Mitral Valve MV E Pvimpxmo302.8cm/sMV A Qfcdvkzl25.0cm/sE/A ratio1.5 TDI E/Lateral E'0.0E/Medial E'0.0 Tricuspid Valve TR Peak [id number]/sTR Peak Gr.[id number] LEFT VENTRICLE The left ventricle is normal size. There is mild concentric left ventricular hypertrophy. The left ventricular function is normal. The left ventricular ejection fraction is within the normal range. There is normal LV segmental wall motion. Tissue Doppler imaging reveals moderate left ventricular diastolic dysfunction. No left ventricle thrombus noted on this study. There is no ventricular septal defect visualized. There is no left ventricular aneurysm. There is no mass noted in the left ventricle. RIGHT VENTRICLE The right ventricle is normal size. There is normal right ventricular wall thickness. The right ventricular systolic function is normal. ATRIA The left atrium size is normal. The right atrium size is normal. The interatrial septum is intact with no evidence for an atrial septal defect. AORTIC VALVE The aortic valve is normal in structure. No aortic regurgitation is present. There is no aortic valvular stenosis. There is no aortic valvular vegetation. MITRAL VALVE The mitral valve is normal in structure. There is no mitral valve stenosis. There is no mitral valve regurgitation noted. TRICUSPID VALVE The tricuspid valve is normal in structure. There is trace tricuspid regurgitation. PULMONIC VALVE The pulmonary valve is normal in structure. There is trace pulmonic valvular regurgitation. GREAT VESSELS The aortic root is normal in size. The ascending aorta is normal in size. The pulmonary artery is normal. The IVC is normal in size and collapses >50% with inspiration. PERICARDIAL EFFUSION There is a small circumferential pericardial effusion. <Conclusion> There is mild concentric left ventricular hypertrophy. Tissue Doppler imaging reveals moderate left ventricular diastolic dysfunction. There is a small circumferential pericardial effusion.
[2017-03-04] MEDS: Promethazine/Cod 6.25mg-10mg/5ml Syr UD PO PRN (18:38)
[2017-03-05] MEDS: Levothyroxine 112 MCG TAB PO SCH (06:33)
[2017-03-05 07:41] LABS: BASO % 0.2 % (0.0-2.0); EOS # 0.2 K/uL (0.0-0.7); EOS % 1.1 % (0.0-4.0); HEMATOCRIT 27.6 % (35.0-51.0); LYMPH # 2.8 K/uL (1.0-4.3); LYMPH % 12.4 % (20.0-40.0); MEAN CELL VOLUME 82.9 fL (80.0-94.0); MEAN CORPUSCULAR HEMOGLOBIN 27.6 pg (27.0-31.0); MEAN CORPUSCULAR HGB CONC 33.3 g/dL (33.0-37.0); MEAN PLATELET VOLUME 7.9 fL (7.2-11.7); MONO % 4.3 % (0.0-10.0); RED CELL DISTRIBUTION WIDTH 17.8 % (11.5-14.5); WHITE BLOOD COUNT 22.3 K/uL (4.8-10.8)
[2017-03-05 07:53] LABS: CHLORIDE 100 mmol/L (98-107); POTASSIUM 4.1 mmol/L (3.6-5.2); SODIUM 133 mmol/L (132-148)
[2017-03-05 07:55] LABS: ALB/GLOB RATIO 0.5 (1.0-2.1); ALKALINE PHOSPHATASE 146 U/L (38-126); AST/SGOT 86 U/L (17-59); BILIRUBIN,TOTAL 0.4 mg/dL (0.2-1.3); CARBON DIOXIDE 25 mmol/L (22-30); GFR AFRICAN-AMERICAN > 60; TOTAL PROTEIN 7.6 g/dL (6.3-8.3)
[2017-03-05 07:56] LABS: ALT/SGPT 105 U/L (21-72); BLOOD UREA NITROGEN 19 mg/dL (9-20); CALCIUM 7.5 mg/dl (8.6-10.4); GLUCOSE,RANDOM 79 mg/dL (75-110); MAGNESIUM 1.7 mg/dL (1.6-2.3); PHOSPHOROUS 4.1 mg/dL (2.5-4.5)
[2017-03-05] MEDS: Pantoprazole 40 mg EC Tab PO SCH (09:17)
[2017-03-05] MEDS: Calcium-Vit D 250 mg-125 Units Tab UD PO SCH ×3 (09:18→17:52)
[2017-03-05] MEDS: Enoxaparin 40 mg Syringe SC SCH (09:18)
[2017-03-05] MEDS: guaiFENesin 600 mg ER Tab PO SCH ×2 (09:18→17:52)
--- NOTE | 2017-03-05 13:01 | CARD ---
APPROVED REPORT EKG Measurement Heart [id number] <Conclusion> Normal sinus rhythm Left axis deviation Acute pericarditis Abnormal ECG
--- NOTE | 2017-03-05 17:29 | CP.PCM.PN ---
<Loan Reyna - Last Filed: 03/05/17 17:25> Subjective - Date & Time of Evaluation Date of Evaluation: 03/05/17 Time of Evaluation: 17:25 - Subjective Subjective: Patient seen and examined at bedside. Patient denied any acute events overnight. He continues to have mid sternal chest pain much less painful than yesterday. He continues to have night sweats but denied fever. The cough has decreased and no phlegm production. Patient denied any navarro/cp/sob/abd pain/n/v/d Objective - Vital Signs/Intake and Output Vital Signs (last 24 hours): Temp Pulse Resp BP Pulse Ox 97.4 F L 67 18 126/68 99 03/05/17 16:20 03/05/17 16:20 03/05/17 16:20 03/05/17 16:20 03/05/17 16:20 Intake and Output: 03/05/17 03/05/17 06:59 18:59 Output Total 700 Balance -700 - Medications Medications: Current Medications Amiodarone HCl (Cordarone) 200 mg PO BID [facility] Last Admin: 03/05/17 09:17 Dose: 200 mg Aspirin (Aspirin) 325 mg PO BID [facility] Last Admin: 03/05/17 09:17 Dose: 325 mg Calcium/Vitamin D (Oscal-D 250 Mg-125 Units Tab) 2 tab PO TID [facility] Last Admin: 03/05/17 13:30 Dose: 2 tab Guaifenesin (Mucinex La) 600 mg PO BID [facility] Last Admin: 03/05/17 09:18 Dose: 600 mg Imipenem/Cilastatin Sodium 500 (mg/ Sodium Chloride) 100 mls @ 100 mls/hr IVPB Q12 [facility] Last Admin: 03/05/17 09:17 Dose: 100 mls/hr Ipratropium [place] (Atrovent Hfa) 2 puff IH RQ6 PRN PRN Reason: Shortness of Breath Lactic Acid (Lac-Hydrin 12% Lotion (225 G)) 225 gm EXT Q1H PRN PRN Reason: Dry skin Last Admin: 02/04/17 18:34 Dose: 1 applic Levothyroxine Sodium (Synthroid) 112 mcg PO DAILY@0630 [facility] Last Admin: 03/05/17 06:33 Dose: 112 mcg Ondansetron HCl (Zofran Inj) 4 mg IVP Q6H PRN PRN Reason: nausea Last Admin: 02/14/17 18:46 Dose: 4 mg Pantoprazole Sodium (Protonix Ec Tab) 40 mg PO DAILY [facility] Last Admin: 03/05/17 09:17 Dose: 40 mg Prednisone (Prednisone Tab) 60 mg PO DAILY [facility] Last Admin: 03/05/17 09:17 Dose: 60 mg Prednisone (Prednisone Tab) 5 mg PO DAILY [facility] Last Admin: 03/05/17 09:17 Dose: 5 mg Promethazine HCl/Codeine (Phenergan/Codeine Oral Syrup) 5 ml PO Q4 PRN PRN Reason: Cough Last Admin: 03/04/17 18:38 Dose: 5 ml - Labs Labs: 03/05/17 07:28 03/05/17 07:28 PT 13.2 SECONDS (9.7-12.2) H 01/20/17 19:37 INR 1.2 01/20/17 19:37 APTT 32 SECONDS (21-34) 01/20/17 19:37 - Constitutional Appears: Non-toxic, No Acute Distress - Head Exam Head Exam: NORMAL INSPECTION - Eye Exam Eye Exam: EOMI - ENT Exam ENT Exam: Mucous Membranes Moist - Respiratory Exam Respiratory Exam: Clear to Ausculation Bilateral, NORMAL BREATHING PATTERN - Cardiovascular Exam Cardiovascular Exam: REGULAR RHYTHM, Murmur - GI/Abdominal Exam GI & Abdominal Exam: Soft, Normal Bowel Sounds. absent: Tenderness - Extremities Exam Extremities Exam: Normal Inspection. 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 For our patient who is being started on Prednisone 65 mg, we may decrease the daily dose of Prednisone every week with the aim of reducing Prednisone dosing to below 10 mg daily within eight weeks, then discontinuing Prednisone therapy over the subsequent three months. * In order to protect his bones from the Prednisone, Calcium/Vitamin D 250/125 2 tablet by mouth 3x/day has been ordered as this is what our pharmacy carries here. Our goal is Calcium Citrate 1,200 mg and Vitamin D 800 IU in a 24 hour period of time in divided doses and not all at once. * Patient will need thorough follow up with Rheumatology as an outpatient when he is ready for discharge. Dr. Dumont was consulted for reumatological recommendations. He suggested the steroid be tapered to 10 mg and the patient continues on this dose for >3 months. He offered to see this patient as a f/u after discharge pending authorization and referral from the clinic. 2). Leukocytosis; Fever of Unknown Origin * Pulmonary (Dr. Mckeon) on board * Infectious Disease (Dr. Calzada/Dr. Carias) on board * Heme-onc (Dr. Jennifer Alexandre) on board * s/p bronchoscopy/bronchial washing for Thursday01/30/17 and this was performed: culture showed Aristeo albicans and Coag Neg Staph and Sputum AFB is negative--- >completed Diflucan 200 mg IV on 02/03/17 and treated through 02/13/17. * CT scan Chest/Abdomen/Pelvis (02/03/17): largely stable findings within the chest; included septa; thickening; persistent bibasilar consolidation bronchiesctasis; lymphadenopathy including mediastinal and axillary lymph nodes ; cervical lymphadenopathy present * Sputum Culture 02/07/17 showed Raoultella planticola and Enterobacter cloacae and patient was on Ceftriaxone from 02/03/17 through 02/13/17. * S/P Bone Marrow Bx 02/10/17 and Bone Marrow Cultures are currently negative--> . 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 Diffuse liner/tubular shaped increase radiotracer uptake at the left abdomen suspicious for uptake in the left colon. Correlate clinically for colitis * CT Abdomen/Pelvis w PO contrast (02/18/17): bibasal or consolidation. Small bulla/bleb in right lower lobe. No change. Right renal cyst with a calcification in the wall of the cyst. No stones are seen in the left kidney. Small hiatal hernia. Very small pleural effusions bilaterally. Small inguinal hernia containing fat bilaterally * I spoke with IR Dr. Rosa Jacobson (02/25/17): Dr. Jacobson reveiwed prior CTs and unfortunately does not have a seeable area for FNA biopsy. He recommended repeat CT Chest and this has been done showing extensive bilateral lower lobe fibrotic changes, stable to slightly increased bilateral lower lobe consolidations and ground glass opacities, septal thickening present, subplueral cysts, trace bilateral plueral effusions * CT Soft Neck has also been ordered for 02/26/17 and there is NO evidence of mass , NO abnormal enhancement or pathologic lymphadenopathy, apparent mild circumferential mural thickening of the visualized upper thoracic esophageal wall is nonspecific and could represent infectious/inflammatory esophagitis * 03/02/17 patient with fever of 101 overnight and with Sputum Culture 02/24/17 came back positive for Klebsiella and Yeast therefore Imipenem 500 mg IV Q12H and Micofungin 100 mg IV Q24H were both started 02/27/17 Patient likely has Sjogren's Syndrome considering the results of autoimmune testing. He will need outpatient follow up with Rheumatology Rheumatology was consulted and discussion was had as seen above. Microbiology: * Aspergillus: negative * Q fever: negative * Hepatitis Panel: negative * Blood parasites: negative * Hepatitis panel: negative * Coccidiodes F-Ag Ab/TP-Ag Ab: negative * C. difficle toxin: negative X7 * Quantaferon:L indeterminate * S. pneumoniae Ag: negative * Group B Strep Antigen: not required * N. meningitis: not required * Urine legionella: negative * HIV: negative X3 * Brucella: negative * RPR: nonreactive Positive Microbiology--which have all been treated during hospitalization. 01/01: Blood: Coag neg Staph (1/2) bottles; 7/14 Blood cultures negative X2 5 days 01/03; 01/06; 01/07 Mycobacterial Culture: no fast acid bacilli identified; no Mycobacterium isolated for 6 weeks X3 Bone Marrow: no acid fast isolated 01/26: Sputum: Yeast 01/30: Bronchial washings: aristeo albicans and coag negative Stap 02/07: Sputum: Raoultella Planticola and Enterobacter Cloacae 02/10: Bone Marrow Staphyloccous Sp Coag 02/12: Sputum: Hafnia Alvei Latest: 02/21/17 Blood Culture is negative 02/23/17 Urine Culture is negative Immunology: * CHAVA: positive; 1:160, speckled, ANCA: negative, Proteinase 3: <1.0, Myeloperoxidase <1.0, [place] Ab <1.0 UDS: negative 3). Hx Elevated Troponin: likely secondary to episode of V Tach. Cardiac Cath performed by Dr. Pryor 01/27/17 showed clean coronaries. Therapeutic Lovenox was discontinued. Patient is currently on telemetry. Amiodarone 200mg PO bid 03/03: Patient having chest pain; BENITEZ and EKG ordered. BENITEZ negative. EKG showing possible pericarditis. Repeat EKG and echo ordered 03/04 showed small pericardial effusion. Held DVT PPX. F/U Dr. Pryor consult. F/U Repeat BC and UC. 4). Hyponatremia: Monitor 5). Hx Bacteremia: repeat cultures have been negative to date. Latest Blood cultures from 02/13/17 show no growth after 5 days and from 02/12/17 no growth for 5 days Blood cultures 02/19/17: no growth thus far Urine culture (02/19/17): no growth, Procalcitonin (02/19/17): 0.58 Blood cultures 02/21/17: pending 6). Hx of TB Prophylaxis: he was on INH upon admission but currently not on anything given transaminitis. Sputum x [address] Chest 01/26/17 shows no change when compared to 01/20/17 (please see full reports). 7). Hx Diffuse Rash: resolved 8). Hx Pancreatic Lesion: F/U CT Abdomen in 6 months; GI seen during hospitalization. 9). 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 Aspirin 10). Hx Constipation: resolved 11). Anemia likely secondary to Chronic Disease: stable 12). Hx Hypothyroidism: levothyroxine 88mcg PO q AM; f/u thyroid studies; thyroid US unremarkable 13). Hx Vertigo: resolved and was likely secondary to the Minocycline that patient was on at the time of admission and once discontinued, this issue resolved and has not recurred 14). Hx Diarrhea: resolved 15). Hx Bilateral Lower Leg Edema: duplex are negative, much improved and now mild non-pitting edema involving the ankles 16). Hx Elevated LFTs: monitor; hepatitis negative 03/04: discontinued tylenol and motrin; continue to follow LFTs - improving 17). History of hypothyroidism. TSH: 9.9 on 01/26/17, repeat thyroid panel: TSH: 7.32, Free t4: 1.51, Total T3: 0.584, T3 3rd generation 7.32, consult: endocrinology: Synthroid was increased to 112 mcg PO 1x/day 18). Prophylactic measure: Lovenox 40mg subqdaily - held 2/2 possible pericardial effusion <Tanika Mccartney V - Last Filed: 03/05/17 23:15> Objective - Vital Signs/Intake and Output Vital Signs (last 24 hours): Temp Pulse Resp BP Pulse Ox 97.4 F L 67 18 126/68 99 03/05/17 16:20 03/05/17 16:20 03/05/17 16:20 03/05/17 16:20 03/05/17 16:20 - Medications Medications: Current Medications Amiodarone HCl (Cordarone) 200 mg PO BID [facility] Last Admin: 03/05/17 17:51 Dose: 200 mg Aspirin (Aspirin) 325 mg PO BID [facility] Last Admin: 03/05/17 17:51 Dose: 325 mg Calcium/Vitamin D (Oscal-D 250 Mg-125 Units Tab) 2 tab PO TID [facility] Last Admin: 03/05/17 17:52 Dose: 2 tab Enoxaparin Sodium (Lovenox) 40 mg SC DAILY [facility] Guaifenesin (Mucinex La) 600 mg PO BID [facility] Last Admin: 03/05/17 17:52 Dose: 600 mg Imipenem/Cilastatin Sodium 500 (mg/ Sodium Chloride) 100 mls @ 100 mls/hr IVPB Q12 [facility] Last Admin: 03/05/17 21:31 Dose: 100 mls/hr Ipratropium [place] (Atrovent Hfa) 2 puff IH RQ6 PRN PRN Reason: Shortness of Breath Lactic Acid (Lac-Hydrin 12% Lotion (225 G)) 225 gm EXT Q1H PRN PRN Reason: Dry skin Last Admin: 02/04/17 18:34 Dose: 1 applic Levothyroxine Sodium (Synthroid) 112 mcg PO DAILY@0630 [facility] Last Admin: 03/05/17 06:33 Dose: 112 mcg Ondansetron HCl (Zofran Inj) 4 mg IVP Q6H PRN PRN Reason: nausea Last Admin: 02/14/17 18:46 Dose: 4 mg Pantoprazole Sodium (Protonix Ec Tab) 40 mg PO DAILY [facility] Last Admin: 03/05/17 09:17 Dose: 40 mg Prednisone (Prednisone Tab) 60 mg PO DAILY [facility] Last Admin: 03/05/17 09:17 Dose: 60 mg Prednisone (Prednisone Tab) 5 mg PO DAILY [facility] Last Admin: 03/05/17 09:17 Dose: 5 mg Promethazine HCl/Codeine (Phenergan/Codeine Oral Syrup) 5 ml PO Q4 PRN PRN Reason: Cough Last Admin: 03/05/17 22:31 Dose: 5 ml - Labs Labs: 03/05/17 07:28 03/05/17 07:28 PT 13.2 SECONDS (9.7-12.2) H 01/20/17 19:37 INR 1.2 01/20/17 19:37 APTT 32 SECONDS (21-34) 01/20/17 19:37 Attending/Attestation - Attestation I have personally seen and examined this patient.: Yes I have fully participated in the care of the patient.: Yes I have reviewed all pertinent clinical information, including history, physical exam and plan: Yes Notes (Text): Patient seen, examined, and case discussed with day-time resident. patient seen this morning complaining of chest pain has improved compared to yesterday, less tender to sternum on my exam. Discussed with cardiology, no significant difference with latest echocardiogram from his first of this admission, c/w Aspirin BID. Patient afebrile over night, will trend fever. White count significantly improved. Will monitor blood and urine cultures taken on 03/04/17 to see if anything grows. Liver enzymes improving. Will f/u with ID regarding length of Primaxin. Patient started on PO prednisone (total 65mg PO daily) given consideration for Adult Still's Disease and treatment for IV antibiotic for persistent pneumonia. Dr Dumont (Rheum) on consult-->help appreciated Patient will need to have jin care and referral to the clinic/ongoing referral with Rheumatology when stable for discharge. If cultures remain negative, patient remains afebrile, and white count continues to improve, will hope to discharge the patient soon. Patient clinically appears better since starting the steroids and hope to discharge this weekend. Assessment/Plan 1). Adult Still's Disease * Consult: Dr Dumont (rheumatology)-->given consideration for Adult Still's Disease in light of extensive workup for fever unknown origin. Based on colleagues A/P over last week: This is certainly a diagnosis of exclusion: please see the work up below The following support the diagnosis of Adult Still's Disease: * Fever: these have roughly been consistant at the same time at night * Maculopapular [place] colored rash: this was present on face, neck, and upper chest on 01/01/17 * Arthralgias: predominanly involving the bilateral shoulders * Myalgias: complained of neck and bilateral upper arm myalgias for a few days starting on 02/12/17 * Pharyngitis: he has had some soreness/dryness in his throat on and off since admission * Lymphadenopathy: 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 on exam * Leukocytosis: he has had waxing and waing elevated WBC but alway above 15,000 * Pulmonary Infiltrates: he has had subpleural infilterates with pleural effusions as seen on his CT Chests * Pericardial Effusion: although he has not complained of symptoms consistent with pericarditis (difficulty breathing with laying flat although he has had dyspnea on and off), trace circumferential pericardial effusion on 2D Echocardiogram was noted at time of admission 01/01/17; confirmed pericarditis ; no significant change; on Aspirin BID 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 () and CRP (01/07/17, 01/09/17, 02/17/17) * Elevated Granulocytes: he has had Eosinophilia (02/15/17, 02/16/17, 02/17/17, ) * Elevated LDH: 01/07/17, 01/09/17, 01/13/17, 02/17/17, 03/03/17 * Elevated LFTs: he has had elevated AST (01/04/17 through 01/20/17) and elevated ALT (01/15/17 through 01/20/17 and 02/15/17 through 02/17/17) * CHAVA Positive: 02/21/17 * RF Positive: 02/21/17 Because of the above and because of the essentially negative extensive workup ( as described below) , Per my colleague, 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 For our patient who is being started on Prednisone 65 mg, we may decrease the daily dose of Prednisone every week with the aim of reducing Prednisone dosing to below 10 mg daily within eight weeks, then discontinuing Prednisone therapy over the subsequent three months. * In order to protect his bones from the Prednisone, Calcium/Vitamin D 250/125 2 tablet by mouth 3x/day has been ordered as this is what our pharmacy carries here. Our goal is Calcium Citrate 1,200 mg and Vitamin D 800 IU in a 24 hour period of time in divided doses and not all at once. * Patient will need thorough follow up with Rheumatology as an outpatient when he is ready for discharge. 2). Leukocytosis; Fever of Unknown Origin * Pulmonary (Dr. Mckeon) on board * Infectious Disease (Dr. Calzada/Dr. Carias) on board * Heme-onc (Dr. Jennifer Alexandre) on board * Rheumatology (Dr. Dumont) on board * s/p bronchoscopy/bronchial washing for Thursday01/30/17 and this was performed: culture showed Aristeo albicans and Coag Neg Staph and Sputum AFB is negative--- >completed Diflucan 200 mg IV on 02/03/17 and treated through 02/13/17. * CT scan Chest/Abdomen/Pelvis (02/03/17): largely stable findings within the chest; included septa; thickening; persistent bibasilar consolidation bronchiesctasis; lymphadenopathy including mediastinal and axillary lymph nodes ; cervical lymphadenopathy present * Sputum Culture 02/07/17 showed Raoultella planticola and Enterobacter cloacae and patient was on Ceftriaxone from 02/03/17 through 02/13/17. * S/P Bone Marrow Bx 02/10/17 and Bone Marrow Cultures are currently negative--> . 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 Diffuse liner/tubular shaped increase radiotracer uptake at the left abdomen suspicious for uptake in the left colon. Correlate clinically for colitis * CT Abdomen/Pelvis w PO contrast (02/18/17): bibasal or consolidation. Small bulla/bleb in right lower lobe. No change. Right renal cyst with a calcification in the wall of the cyst. No stones are seen in the left kidney. Small hiatal hernia. Very small pleural effusions bilaterally. Small inguinal hernia containing fat bilaterally * Dr. Pete Gresham spoke with IR Dr. Rosa Jacobson (02/25/17): Dr. Jacobson reveiwed prior CTs and unfortunately does not have a seeable area for FNA biopsy. He recommended repeat CT Chest and this has been done showing extensive bilateral lower lobe fibrotic changes, stable to slightly increased bilateral lower lobe consolidations and ground glass opacities, septal thickening present, subplueral cysts, trace bilateral plueral effusions * CT Soft Neck has also been ordered for 02/26/17 and there is NO evidence of mass , NO abnormal enhancement or pathologic lymphadenopathy, apparent mild circumferential mural thickening of the visualized upper thoracic esophageal wall is nonspecific and could represent infectious/inflammatory esophagitis * 02/27/17 patient with fever of 100.2 overnight and with Sputum Culture 02/24/17 came back positive for Klebsiella and Yeast therefore Imipenem 500 mg IV Q12H and Micafungin 100 mg IV Q24H were both started 02/27/17 * Also, possible Adult Still's Disease, and patient has positive antibiodies suggestive for Sjogren's Syndrome considering the results of autoimmune testing. He will need outpatient follow up with Rheumatology. * 03/04/17: Tmax: 100.1F, Leukocytosis (in light of PO steroid); repeated blood and urine to r/o other infection * 03/05/14: Afebrile, f/u blood and urine cultures 03/04/17, white count improving Microbiology: * Aspergillus: negative * Q fever: negative * Hepatitis Panel: negative * Blood parasites: negative * Hepatitis panel: negative * Coccidiodes F-Ag Ab/TP-Ag Ab: negative * C. difficle toxin: negative X7 * Quantaferon:L indeterminate * S. pneumoniae Ag: negative * Group B Strep Antigen: not required * N. meningitis: not required * Urine legionella: negative * HIV: negative X3 * Brucella: negative * RPR: nonreactive Positive Microbiology--which have all been treated during hospitalization. 01/01: Blood: Coag neg Staph (1/2) bottles; 01/02 Blood cultures negative X2 5 days 01/03; 01/06; 01/07 Mycobacterial Culture: no fast acid bacilli identified; no Mycobacterium isolated for 6 weeks X3 Bone Marrow: no acid fast isolated 01/26: Sputum: Yeast 01/30: Bronchial washings: aristeo albicans and coag negative Stap 02/07: Sputum: Raoultella Planticola and Enterobacter Cloacae 02/10: Bone Marrow Staphyloccous Sp Coag 02/12: Sputum: Hafnia Alvei 02/24: Sputum: ESBL+ Klebsiella and Yeast Latest: 02/21/17 Blood Culture is negative 02/23/17 Urine Culture is negative Immunology: * CHAVA: positive; 1:160/ 1:320 speckled, ANCA: negative, Proteinase 3: <1.0, Myeloperoxidase <1.0, Montelongo Ab <1.0 * Rheumatoid Factor: 22 * Anti SS-A/SS-B: >8.0 X2 * negative Montelonog Antibody * Snegative SM/DIRECTOR ATHLETIC antibody * Negative DsDNA * Positive Actin Igg Antibody * Positiev Thyroperoxidase Ab * negative GBM * Negative Parietal Cell UDS: negative 3). Hx Elevated Troponin: likely secondary to episode of V Tach. Cardiac Cath performed by Dr. Pryor 01/27/17 showed clean coronaries. Therapeutic Lovenox was discontinued. Patient is currently on telemetry. Amiodarone 200mg PO bid 4). Hyponatremia: Monitor 5). Hx Bacteremia: repeat cultures have been negative to date. Blood cultures from 02/13/17 show no growth after 5 days and from 02/12/17 no growth for 5 days Blood cultures 02/19/17: no growth thus far Urine culture (02/19/17): no growth, Procalcitonin (02/19/17): 0.58 Blood cultures 02/21/17: negative to date 6). Hx of TB Prophylaxis: he was on INH upon admission but currently not on anything given transaminitis. Sputum x [address] Chest 01/26/17 shows no change when compared to 01/20/17 (please see full reports). 7). Hx Diffuse Rash: resolved 8). Hx Pancreatic Lesion: F/U CT Abdomen in 6 months; GI seen during hospitalization. 9). 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 Aspirin; Resolved in repeat Duplex 10). Hx Constipation: resolved 11). Anemia likely secondary to Chronic Disease: stable 13). Hx Vertigo: resolved and was likely secondary to the Minocycline that patient was on at the time of admission and once discontinued, this issue resolved and has not recurred 14). Hx Diarrhea: resolved 15). Hx Bilateral Lower Leg Edema: duplex are negative, much improved and now mild non-pitting edema involving the ankles 16). Hx Elevated LFTs: monitor; hepatitis negative; d/c tylenol and motrin 17). History of hypothyroidism. TSH: 9.9 on 01/26/17, repeat thyroid panel: TSH: 7.32, Free t4: 1.51, Total T3: 0.584, T3 3rd generation 7.32, consult: endocrinology: Synthroid was increased to 112 mcg PO 1x/day 18). Prophylactic measure: Lovenox 40mg subqdaily
[2017-03-05] MEDS: Promethazine/Cod 6.25mg-10mg/5ml Syr UD PO PRN (22:31)
[2017-03-06 02:03] VITALS: RESP 20
[2017-03-06] MEDS: Levothyroxine 112 MCG TAB PO SCH (06:19)
[2017-03-06 08:09] LABS: BASO # 0.1 K/uL (0.0-0.2); BASO % 0.3 % (0.0-2.0); EOS # 0.3 K/uL (0.0-0.7); EOS % 1.8 % (0.0-4.0); HEMATOCRIT 28.7 % (35.0-51.0); LYMPH # 2.6 K/uL (1.0-4.3); LYMPH % 14.8 % (20.0-40.0); MEAN CELL VOLUME 84.2 fL (80.0-94.0); MEAN CORPUSCULAR HEMOGLOBIN 27.5 pg (27.0-31.0); MEAN CORPUSCULAR HGB CONC 32.7 g/dL (33.0-37.0); MEAN PLATELET VOLUME 7.8 fL (7.2-11.7); MONO # 0.6 K/uL (0.0-0.8); MONO % 3.6 % (0.0-10.0); RED CELL DISTRIBUTION WIDTH 17.9 % (11.5-14.5); WHITE BLOOD COUNT 17.3 K/uL (4.8-10.8)
[2017-03-06 08:18] LABS: CHLORIDE 102 mmol/L (98-107); POTASSIUM 3.8 mmol/L (3.6-5.2); SODIUM 134 mmol/L (132-148)
[2017-03-06 08:19] LABS: ALB/GLOB RATIO 0.5 (1.0-2.1); ALKALINE PHOSPHATASE 132 U/L (38-126); ALT/SGPT 119 U/L (21-72); AST/SGOT 91 U/L (17-59); BILIRUBIN,TOTAL 0.3 mg/dL (0.2-1.3); BLOOD UREA NITROGEN 21 mg/dL (9-20); CARBON DIOXIDE 25 mmol/L (22-30); GFR AFRICAN-AMERICAN > 60; GLUCOSE,RANDOM 112 mg/dL (75-110); TOTAL PROTEIN 7.5 g/dL (6.3-8.3)
[2017-03-06 08:20] LABS: CALCIUM 7.6 mg/dl (8.6-10.4); MAGNESIUM 1.6 mg/dL (1.6-2.3)
[2017-03-06] MEDS: Calcium-Vit D 250 mg-125 Units Tab UD PO SCH ×3 (10:11→18:10)
[2017-03-06] MEDS: Enoxaparin 40 mg Syringe SC SCH (10:11)
[2017-03-06] MEDS: Pantoprazole 40 mg EC Tab PO SCH (10:11)
[2017-03-06] MEDS: guaiFENesin 600 mg ER Tab PO SCH ×2 (10:11→18:08)
--- NOTE | 2017-03-06 16:07 | CP.PCM.PN ---
<Loan Reyna - Last Filed: 03/06/17 16:08> Subjective - Date & Time of Evaluation Date of Evaluation: 03/06/17 Time of Evaluation: 16:07 - Subjective Subjective: Patient seen and examined at bedside. Patient denied any acute events overnight. He continues to have mid sternal chest pain that has gotten significantly better. Patient says this pain is worsened by turning from side to side while laying in bed. Patient denied any f/c/navarro/sob/abd pain/n/v/d Objective - Vital Signs/Intake and Output Vital Signs (last 24 hours): Temp Pulse Resp BP Pulse Ox 98 F 63 20 130/75 100 03/06/17 07:00 03/06/17 07:00 03/06/17 07:00 03/06/17 07:00 03/06/17 07:00 Intake and Output: 03/06/17 03/06/17 06:59 18:59 Intake Total 240 590 Output Total 700 Balance -460 590 - Medications Medications: Current Medications Amiodarone HCl (Cordarone) 200 mg PO BID [facility] Last Admin: 03/06/17 10:11 Dose: 200 mg Aspirin (Aspirin) 325 mg PO BID [facility] Last Admin: 03/06/17 10:11 Dose: 325 mg Calcium/Vitamin D (Oscal-D 250 Mg-125 Units Tab) 2 tab PO TID [facility] Last Admin: 03/06/17 14:01 Dose: 2 tab Enoxaparin Sodium (Lovenox) 40 mg SC DAILY [facility] Last Admin: 03/06/17 10:11 Dose: 40 mg Guaifenesin (Mucinex La) 600 mg PO BID [facility] Last Admin: 03/06/17 10:11 Dose: 600 mg Ipratropium [place] (Atrovent Hfa) 2 puff IH RQ6 PRN PRN Reason: Shortness of Breath Lactic Acid (Lac-Hydrin 12% Lotion (225 G)) 225 gm EXT Q1H PRN PRN Reason: Dry skin Last Admin: 02/04/17 18:34 Dose: 1 applic Levothyroxine Sodium (Synthroid) 112 mcg PO DAILY@0630 [facility] Last Admin: 03/06/17 06:19 Dose: 112 mcg Ondansetron HCl (Zofran Inj) 4 mg IVP Q6H PRN PRN Reason: nausea Last Admin: 02/14/17 18:46 Dose: 4 mg Pantoprazole Sodium (Protonix Ec Tab) 40 mg PO DAILY [facility] Last Admin: 03/06/17 10:11 Dose: 40 mg Prednisone (Prednisone Tab) 60 mg PO DAILY [facility] Last Admin: 03/06/17 10:11 Dose: 60 mg Prednisone (Prednisone Tab) 5 mg PO DAILY [facility] Last Admin: 03/06/17 10:11 Dose: 5 mg Promethazine HCl/Codeine (Phenergan/Codeine Oral Syrup) 5 ml PO Q4 PRN PRN Reason: Cough Last Admin: 03/05/17 22:31 Dose: 5 ml - Labs Labs: 03/06/17 07:56 03/06/17 07:56 PT 13.2 SECONDS (9.7-12.2) H 01/20/17 19:37 INR 1.2 01/20/17 19:37 APTT 32 SECONDS (21-34) 01/20/17 19:37 - Constitutional Appears: Non-toxic, No Acute Distress - Head Exam Head Exam: NORMAL INSPECTION - Eye Exam Eye Exam: EOMI - ENT Exam ENT Exam: Mucous Membranes Moist - Respiratory Exam Respiratory Exam: Clear to Ausculation Bilateral, NORMAL BREATHING PATTERN - Cardiovascular Exam Cardiovascular Exam: REGULAR RHYTHM, +S1, +S2, Murmur (DONNY) - GI/Abdominal Exam GI & Abdominal Exam: Soft, Normal Bowel Sounds. 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 For our patient who is being started on Prednisone 65 mg, we may decrease the daily dose of Prednisone every week with the aim of reducing Prednisone dosing to below 10 mg daily within eight weeks, then discontinuing Prednisone therapy over the subsequent three months. * In order to protect his bones from the Prednisone, Calcium/Vitamin D 250/125 2 tablet by mouth 3x/day has been ordered as this is what our pharmacy carries here. Our goal is Calcium Citrate 1,200 mg and Vitamin D 800 IU in a 24 hour period of time in divided doses and not all at once. * Patient will need thorough follow up with Rheumatology as an outpatient when he is ready for discharge. Dr. Dumont was consulted for reumatological recommendations. He suggested the steroid be tapered to 10 mg and the patient continues on this dose for >3 months. He offered to see this patient as a f/u after discharge pending authorization and referral from the clinic. Patient has an appointment already made for him on 03/09/17 at 9:[address]. [address]. Regalado will refer him to Dr. Dumont for Rheumatological follow up. 2). Leukocytosis; Fever of Unknown Origin * Pulmonary (Dr. Mckeon) on board * Infectious Disease (Dr. Calzada/Dr. Carias) on board * Heme-onc (Dr. Jennifer Alexandre) on board * s/p bronchoscopy/bronchial washing for Thursday01/30/17 and this was performed: culture showed Aristeo albicans and Coag Neg Staph and Sputum AFB is negative--- >completed Diflucan 200 mg IV on 02/03/17 and treated through 02/13/17. * CT scan Chest/Abdomen/Pelvis (02/03/17): largely stable findings within the chest; included septa; thickening; persistent bibasilar consolidation bronchiesctasis; lymphadenopathy including mediastinal and axillary lymph nodes ; cervical lymphadenopathy present * Sputum Culture 02/07/17 showed Raoultella planticola and Enterobacter cloacae and patient was on Ceftriaxone from 02/03/17 through 02/13/17. * S/P Bone Marrow Bx 02/10/17 and Bone Marrow Cultures are currently negative--> . 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 Diffuse liner/tubular shaped increase radiotracer uptake at the left abdomen suspicious for uptake in the left colon. Correlate clinically for colitis * CT Abdomen/Pelvis w PO contrast (02/18/17): bibasal or consolidation. Small bulla/bleb in right lower lobe. No change. Right renal cyst with a calcification in the wall of the cyst. No stones are seen in the left kidney. Small hiatal hernia. Very small pleural effusions bilaterally. Small inguinal hernia containing fat bilaterally * I spoke with IR Dr. Rosa Jacobson (02/25/17): Dr. Jacobson reveiwed prior CTs and unfortunately does not have a seeable area for FNA biopsy. He recommended repeat CT Chest and this has been done showing extensive bilateral lower lobe fibrotic changes, stable to slightly increased bilateral lower lobe consolidations and ground glass opacities, septal thickening present, subplueral cysts, trace bilateral plueral effusions * CT Soft Neck has also been ordered for 02/26/17 and there is NO evidence of mass , NO abnormal enhancement or pathologic lymphadenopathy, apparent mild circumferential mural thickening of the visualized upper thoracic esophageal wall is nonspecific and could represent infectious/inflammatory esophagitis * 03/02/17 patient with fever of 101 overnight and with Sputum Culture 02/24/17 came back positive for Klebsiella and Yeast therefore Imipenem 500 mg IV Q12H and Micofungin 100 mg IV Q24H were both started 02/27/17 - micofungin discontinued 2/2 elevated LFTs 03/04 and Imipenem discontinued on 03/06 per ID request Patient likely has Sjogren's Syndrome considering the results of autoimmune testing. He will need outpatient follow up with Rheumatology Rheumatology was consulted and discussion was had as seen above. Microbiology: * Aspergillus: negative * Q fever: negative * Hepatitis Panel: negative * Blood parasites: negative * Hepatitis panel: negative * Coccidiodes F-Ag Ab/TP-Ag Ab: negative * C. difficle toxin: negative X7 * Quantaferon:L indeterminate * S. pneumoniae Ag: negative * Group B Strep Antigen: not required * N. meningitis: not required * Urine legionella: negative * HIV: negative X3 * Brucella: negative * RPR: nonreactive Positive Microbiology--which have all been treated during hospitalization. 01/01: Blood: Coag neg Staph (1/2) bottles; 01/02 Blood cultures negative X2 5 days 01/03; 01/06; 01/07 Mycobacterial Culture: no fast acid bacilli identified; no Mycobacterium isolated for 6 weeks X3 Bone Marrow: no acid fast isolated 01/26: Sputum: Yeast 01/30: Bronchial washings: aristeo albicans and coag negative Stap 02/07: Sputum: Raoultella Planticola and Enterobacter Cloacae 02/10: Bone Marrow Staphyloccous Sp Coag 02/12: Sputum: Hafnia Alvei Latest: 02/21/17 Blood Culture is negative 02/23/17 Urine Culture is negative Immunology: * CHAVA: positive; 1:160, speckled, ANCA: negative, Proteinase 3: <1.0, Myeloperoxidase <1.0, [place] Ab <1.0 UDS: negative 3). Hx Elevated Troponin: likely secondary to episode of V Tach. Cardiac Cath performed by Dr. Pryor 01/27/17 showed clean coronaries. Therapeutic Lovenox was discontinued. Patient is currently on telemetry. Amiodarone 200mg PO bid 03/03: Patient having chest pain; BENITEZ and EKG ordered. BENITEZ negative. EKG showing possible pericarditis. Repeat EKG and echo ordered 03/04 showed small pericardial effusion. Held DVT PPX. F/U Dr. Pryor consult. F/U Repeat BC and UC. 4). Hyponatremia: Monitor 5). Hx Bacteremia: repeat cultures have been negative to date. Latest Blood cultures from 02/13/17 show no growth after 5 days and from 02/12/17 no growth for 5 days Blood cultures 02/19/17: no growth thus far Urine culture (02/19/17): no growth, Procalcitonin (02/19/17): 0.58 Blood cultures 02/21/17: pending 6). Hx of TB Prophylaxis: he was on INH upon admission but currently not on anything given transaminitis. Sputum x [address] Chest 01/26/17 shows no change when compared to 01/20/17 (please see full reports). 7). Hx Diffuse Rash: resolved 8). Hx Pancreatic Lesion: F/U CT Abdomen in 6 months; GI seen during hospitalization. 9). 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 Aspirin 10). Hx Constipation: resolved 11). Anemia likely secondary to Chronic Disease: stable 12). Hx Hypothyroidism: levothyroxine 88mcg PO q AM; f/u thyroid studies; thyroid US unremarkable 13). Hx Vertigo: resolved and was likely secondary to the Minocycline that patient was on at the time of admission and once discontinued, this issue resolved and has not recurred 14). Hx Diarrhea: resolved 15). Hx Bilateral Lower Leg Edema: duplex are negative, much improved and now mild non-pitting edema involving the ankles 16). Hx Elevated LFTs: monitor; hepatitis negative 03/04: discontinued tylenol and motrin; continue to follow LFTs - improving 17). History of hypothyroidism. TSH: 9.9 on 01/26/17, repeat thyroid panel: TSH: 7.32, Free t4: 1.51, Total T3: 0.584, T3 3rd generation 7.32, consult: endocrinology: Synthroid was increased to 112 mcg PO 1x/day 18). Prophylactic measure: Lovenox 40mg subqdaily - held 2/2 possible pericardial effusion Disposition: Patient is improving clinically. WBC count dropping and patient afebrile since 03/01/17. We will f/u WBC, ESR, LDH, and CRP for tomorrow and if improving patient will be discharged with the steroid regimen. Patient has an appointment already made for him on 03/09/17 at 9:[address] Regalado at the clinic. Dr. Regalado will refer him to Dr. Dumont for Rheumatological follow up. Dr. Dumont is aware of this patient and has agreed to see him. He suggested the steroid be tapered to 10 mg and the patient continues on this dose for >3 months. <Taniak Mccartney V - Last Filed: 03/07/17 13:16> Objective - Vital Signs/Intake and Output Vital Signs (last 24 hours): Temp Pulse Resp BP Pulse Ox 98.5 F 64 20 128/70 100 03/07/17 07:00 03/07/17 07:00 03/07/17 07:00 03/07/17 07:00 03/07/17 07:00 Intake and Output: 03/07/17 03/07/17 06:59 18:59 Intake Total 240 Output Total 250 Balance -10 - Medications Medications: Current Medications Amiodarone HCl (Cordarone) 200 mg PO BID [facility] Last Admin: 03/07/17 09:22 Dose: 200 mg Aspirin (Aspirin) 325 mg PO BID [facility] Last Admin: 03/07/17 09:22 Dose: 325 mg Calcium/Vitamin D (Oscal-D 250 Mg-125 Units Tab) 2 tab PO TID [facility] Last Admin: 03/07/17 10:34 Dose: 2 tab Enoxaparin Sodium (Lovenox) 40 mg SC DAILY [facility] Last Admin: 03/07/17 09:22 Dose: 40 mg Guaifenesin (Mucinex La) 600 mg PO BID [facility] Last Admin: 03/07/17 09:22 Dose: 600 mg Ipratropium [place] (Atrovent Hfa) 2 puff IH RQ6 PRN PRN Reason: Shortness of Breath Lactic Acid (Lac-Hydrin 12% Lotion (225 G)) 225 gm EXT Q1H PRN PRN Reason: Dry skin Last Admin: 02/04/17 18:34 Dose: 1 applic Levothyroxine Sodium (Synthroid) 112 mcg PO DAILY@0630 [facility] Last Admin: 03/07/17 05:48 Dose: 112 mcg Ondansetron HCl (Zofran Inj) 4 mg IVP Q6H PRN PRN Reason: nausea Last Admin: 02/14/17 18:46 Dose: 4 mg Pantoprazole Sodium (Protonix Ec Tab) 40 mg PO DAILY [facility] Last Admin: 03/07/17 09:22 Dose: 40 mg Prednisone (Prednisone Tab) 60 mg PO DAILY [facility] Last Admin: 03/07/17 09:22 Dose: 60 mg Prednisone (Prednisone Tab) 5 mg PO DAILY [facility] Last Admin: 03/07/17 09:22 Dose: 5 mg Promethazine HCl/Codeine (Phenergan/Codeine Oral Syrup) 5 ml PO Q4 PRN PRN Reason: Cough Last Admin: 03/05/17 22:31 Dose: 5 ml - Labs Labs: 03/07/17 08:59 03/07/17 08:59 PT 13.2 SECONDS (9.7-12.2) H 01/20/17 19:37 INR 1.2 01/20/17 19:37 APTT 32 SECONDS (21-34) 01/20/17 19:37 Attending/Attestation - Attestation I have personally seen and examined this patient.: Yes I have fully participated in the care of the patient.: Yes I have reviewed all pertinent clinical information, including history, physical exam and plan: Yes Notes (Text): This is late computer entry for 03/06/17. Patient seen, examined, and case discussed with day-time resident. Patient is clinically improving. Patient reports chest pain has improved. Patient remains afebrile and white count has improved. Repeat Blood cultures remain negative and urine culture shows no growth. Resident Axel spoke with Infectious Disease and patient to finish Primaxin today. If patient's white count continues to trend down, remains afebrile, and if ESR/LDH improve, will be discharge tomorrow. Assessment/Plan 1). Adult Still's Disease * Consult: Dr Dumont (rheumatology)-->given consideration for Adult Still's Disease in light of extensive workup for fever unknown origin-->patient will follow-up with the [facility] and recommend for referral for rheumatology as outpatient to monitor Based on colleagues A/P over last week: This is certainly a diagnosis of exclusion: please see the work up below The following support the diagnosis of Adult Still's Disease: * Fever: these have roughly been consistant at the same time at night * Maculopapular [place] colored rash: this was present on face, neck, and upper chest on 01/01/17--->resolved * Arthralgias: predominanly involving the bilateral shoulders-->improved * Myalgias: complained of neck and bilateral upper arm myalgias for a few days starting on 02/12/17-->improved * Pharyngitis: he has had some soreness/dryness in his throat on and off since admission--->resolved * Lymphadenopathy: 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 persists on exam * Leukocytosis: he has had waxing and waing elevated WBC but alway above 15,000 * Pulmonary Infiltrates: he has had subpleural infilterates with pleural effusions as seen on his CT Chests * Pericardial Effusion: confirmed pericarditis, started on Aspirin 325mg PO bid , discussed with cardiology, and had three echocardiograms during hospitalization 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 () and CRP (01/07/17, 01/09/17, 02/17/17) * Elevated Granulocytes: he has had Eosinophilia (02/15/17, 02/16/17, 02/17/17, ) * Elevated LDH: 01/07/17, 01/09/17, 01/13/17, 02/17/17, 03/03/17-->will repeat tomorrow * Elevated LFTs: he has had elevated AST (01/04/17 through 01/20/17) and elevated ALT (01/15/17 through 01/20/17 and 02/15/17 through 02/17/17) * CHAVA Positive: 02/21/17 * RF Positive: 02/21/17 Because of the above and because of the essentially negative extensive workup ( as described below) , Per my colleague, 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 For our patient who is being started on Prednisone 65 mg, we may decrease the daily dose of Prednisone every week with the aim of reducing Prednisone dosing to below 10 mg daily within eight weeks, then discontinuing Prednisone therapy over the subsequent three months. * In order to protect his bones from the Prednisone, Calcium/Vitamin D 250/125 2 tablet by mouth 3x/day has been ordered as this is what our pharmacy carries here. Our goal is Calcium Citrate 1,200 mg and Vitamin D 800 IU in a 24 hour period of time in divided doses and not all at once. * Patient will need thorough follow up with Rheumatology as an outpatient when he is ready for discharge. 2). Leukocytosis; Fever of Unknown Origin * Pulmonary (Dr. Mckeon) on board * Infectious Disease (Dr. Calzada/Dr. Carias) on board * Heme-onc (Dr. Jennifer Alexandre) on board * Rheumatology (Dr. Dumont) on board * s/p bronchoscopy/bronchial washing for Thursday01/30/17 and this was performed: culture showed Aristeo albicans and Coag Neg Staph and Sputum AFB is negative--- >completed Diflucan 200 mg IV on 02/03/17 and treated through 02/13/17. * CT scan Chest/Abdomen/Pelvis (02/03/17): largely stable findings within the chest; included septa; thickening; persistent bibasilar consolidation bronchiesctasis; lymphadenopathy including mediastinal and axillary lymph nodes ; cervical lymphadenopathy present * Sputum Culture 02/07/17 showed Raoultella planticola and Enterobacter cloacae and patient was on Ceftriaxone from 02/03/17 through 02/13/17. * S/P Bone Marrow Bx 02/10/17 and Bone Marrow Cultures are currently negative--> . 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 Diffuse liner/tubular shaped increase radiotracer uptake at the left abdomen suspicious for uptake in the left colon. Correlate clinically for colitis * CT Abdomen/Pelvis w PO contrast (02/18/17): bibasal or consolidation. Small bulla/bleb in right lower lobe. No change. Right renal cyst with a calcification in the wall of the cyst. No stones are seen in the left kidney. Small hiatal hernia. Very small pleural effusions bilaterally. Small inguinal hernia containing fat bilaterally * Dr. Pete Gresham spoke with IR Dr. Rosa Jacobson (02/25/17): Dr. Jacobson reveiwed prior CTs and unfortunately does not have a seeable area for FNA biopsy. He recommended repeat CT Chest and this has been done showing extensive bilateral lower lobe fibrotic changes, stable to slightly increased bilateral lower lobe consolidations and ground glass opacities, septal thickening present, subplueral cysts, trace bilateral plueral effusions * CT Soft Neck has also been ordered for 02/26/17 and there is NO evidence of mass , NO abnormal enhancement or pathologic lymphadenopathy, apparent mild circumferential mural thickening of the visualized upper thoracic esophageal wall is nonspecific and could represent infectious/inflammatory esophagitis * 02/27/17 patient with fever of 100.2 overnight and with Sputum Culture 02/24/17 came back positive for Klebsiella and Yeast therefore Imipenem 500 mg IV Q12H and Micafungin 100 mg IV Q24H were both started 02/27/17 * Also, possible Adult Still's Disease, and patient has positive antibiodies suggestive for Sjogren's Syndrome considering the results of autoimmune testing. He will need outpatient follow up with Rheumatology. * 03/04/17: Tmax: 100.1F, Leukocytosis (in light of PO steroid); repeated blood and urine to r/o other infection * 03/05/17: Afebrile, f/u blood and urine cultures 03/04/17, white count improving * 03/06/17: Remains afebrile, blood cultures are negative, urine culture shows no growth, white count improving, and antibiotics discontinued Microbiology: * Aspergillus: negative * Q fever: negative * Hepatitis Panel: negative * Blood parasites: negative * Hepatitis panel: negative * Coccidiodes F-Ag Ab/TP-Ag Ab: negative * C. difficle toxin: negative X7 * Quantaferon:L indeterminate * S. pneumoniae Ag: negative * Group B Strep Antigen: not required * N. meningitis: not required * Urine legionella: negative * HIV: negative X3 * Brucella: negative * RPR: nonreactive Positive Microbiology--which have all been treated during hospitalization. * 01/01: Blood: Coag neg Staph (1/2) bottles; 01/02 Blood cultures negative X2 5 days * 01/03; 01/06; 01/07 Mycobacterial Culture: no fast acid bacilli identified; no Mycobacterium isolated for 6 weeks X3 Bone Marrow: no acid fast isolated * 01/26: Sputum: Yeast * 01/30: Bronchial washings: aristeo albicans and coag negative Stap * 02/07: Sputum: Raoultella Planticola and Enterobacter Cloacae * 02/10: Bone Marrow Staphyloccous Sp Coag * 02/12: Sputum: Hafnia Alvei * 02/24: Sputum: ESBL+ Klebsiella and Yeast * 02/21/17 Blood Culture is negative * 02/23/17 Urine Culture is negative * 03/04/17 Blood culture: no growth after 48 hours * 03/04/17: Urine culture: no growth Immunology: * CHAVA: positive; 1:160/ 1:320 speckled, ANCA: negative, Proteinase 3: <1.0, Myeloperoxidase <1.0, [place] Ab <1.0 * Rheumatoid Factor: 22 * Anti SS-A/SS-B: >8.0 X2 * negative [place] Antibody * Snegative [employer] antibody * Negative DsDNA * Positive Actin Igg Antibody * Positive Thyroperoxidase Ab * negative GBM * Negative Parietal Cell UDS: negative 3). Hx Elevated Troponin: likely secondary to episode of V Tach. Cardiac Cath performed by Dr. Pryor 01/27/17 showed clean coronaries. Therapeutic Lovenox was discontinued. Patient is currently on telemetry. Amiodarone 200mg PO bid 4). Hyponatremia: Monitor 5). Hx Bacteremia: repeat cultures have been negative to date. Prior cultures have been treated accordingly 6). Hx of TB Prophylaxis: he was on INH for latent tuberculosis upon admission but currently not on anything given transaminitis. Sputum x [address] Chest 01/26/17 shows no change when compared to 01/20/17 (please see full reports ). 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 Hx Diffuse Rash: resolved 8). Hx Pancreatic Lesion: F/U CT Abdomen in 6 months; GI seen during hospitalization. 9). 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 Aspirin; Resolved in repeat Duplex 10). Hx Constipation: resolved 11). Anemia likely secondary to Chronic Disease: stable 13). Hx Vertigo: resolved and was likely secondary to the Minocycline that patient was on at the time of admission and once discontinued, this issue resolved and has not recurred 14). Hx Diarrhea: resolved 15). Hx Bilateral Lower Leg Edema: duplex are negative, much improved and now mild non-pitting edema involving the ankles 16). Hx Elevated LFTs: monitor; hepatitis negative; d/c tylenol and motrin 17). History of hypothyroidism. TSH: 9.9 on 01/26/17, repeat thyroid panel: TSH: 7.32, Free t4: 1.51, Total T3: 0.584, T3 3rd generation 7.32, consult: endocrinology: Synthroid was increased to 112 mcg PO 1x/day 18). Prophylactic measure: Lovenox 40mg subqdaily
[2017-03-07] MEDS: Levothyroxine 112 MCG TAB PO SCH (05:48)
[2017-03-07 08:09] VITALS: BP 128/70; PULSE 64; TEMP 98.5; O2SAT 100
[2017-03-07 09:22] LABS: BASO # 0.1 K/uL (0.0-0.2); BASO % 0.4 % (0.0-2.0); EOS # 0.2 K/uL (0.0-0.7); EOS % 1.4 % (0.0-4.0); LYMPH # 2.8 K/uL (1.0-4.3); LYMPH % 16.9 % (20.0-40.0); MEAN CELL VOLUME 83.9 fL (80.0-94.0); MEAN CORPUSCULAR HEMOGLOBIN 27.5 pg (27.0-31.0); MEAN CORPUSCULAR HGB CONC 32.8 g/dL (33.0-37.0); MEAN PLATELET VOLUME 7.9 fL (7.2-11.7); MONO # 0.9 K/uL (0.0-0.8); MONO % 5.6 % (0.0-10.0); NRBC % 0.1 % (0.0-2.0); PLATELET COUNT 648 K/uL (130-400); RED CELL DISTRIBUTION WIDTH 17.5 % (11.5-14.5); WHITE BLOOD COUNT 16.8 K/uL (4.8-10.8)
[2017-03-07] MEDS: Pantoprazole 40 mg EC Tab PO SCH (09:22)
[2017-03-07] MEDS: Enoxaparin 40 mg Syringe SC SCH (09:22)
[2017-03-07] MEDS: guaiFENesin 600 mg ER Tab PO SCH (09:22)
[2017-03-07 09:26] LABS: CHLORIDE 102 mmol/L (98-107)
[2017-03-07 09:27] LABS: POTASSIUM 3.4 mmol/L (3.6-5.2); SODIUM 136 mmol/L (132-148)
[2017-03-07 09:29] LABS: ALB/GLOB RATIO 0.5 (1.0-2.1); BILIRUBIN,TOTAL 0.3 mg/dL (0.2-1.3); CARBON DIOXIDE 28 mmol/L (22-30); GFR AFRICAN-AMERICAN > 60; TOTAL PROTEIN 7.4 g/dL (6.3-8.3)
[2017-03-07 09:30] LABS: ALKALINE PHOSPHATASE 139 U/L (38-126); ALT/SGPT 126 U/L (21-72); AST/SGOT 85 U/L (17-59); BLOOD UREA NITROGEN 20 mg/dL (9-20); CALCIUM 7.6 mg/dl (8.6-10.4); GLUCOSE,RANDOM 100 mg/dL (75-110); MAGNESIUM 1.6 mg/dL (1.6-2.3); PHOSPHOROUS 3.6 mg/dL (2.5-4.5)
[2017-03-07 10:28] LABS: ERYTHROCYTE SEDIMENTATION RATE 103 mm/hr (0-15)
[2017-03-07] MEDS: Calcium-Vit D 250 mg-125 Units Tab UD PO SCH ×2 (10:34→14:32)
[2017-03-07] MEDS ORDERED: Potassium Chloride 20 mEq/15 ml LIQ UD PO ONE (11:30)
[2017-03-07 12:46] LABS: EOSINOPHIL 1 % (0-4); METAMYELOCYTE 1 % (0-0); MYELOCYTE 1 % (0-0); NEUTROPHIL 69 % (50-75); TOTAL CELLS COUNTED 100
[2017-03-07 12:47] LABS: SPHEROCYTES SLIGHT
--- NOTE | 2017-03-07 13:18 | CP.PCM.DIS ---
Provider - Provider Date of Admission: 01/01/17 08:45 Attending physician: Tanika Mccartney DO Consults: Neurology: Dr Lee, Dr. Mason Infectious Disease: Dr. Carias, Dr. Calzada Pulmonary: Dr. Barrow, Dr. Mckeon GI: Dr. Jonas Cardiology: Dr. Pryor, Dr. Silva Heme-onc: Dr. Alexandre Endo: Dr. El IR: Dr. Jacobson Rheum: Dr. Dumont Time Spent in preparation of Discharge (in minutes): 40 Diagnosis - Discharge Diagnosis (1) Adult Still's disease Status: Chronic Comment: See discharge summary for further details (2) Fever of unknown origin Status: Resolved Comment: see discharge summary for further details (3) Bacteremia Status: Resolved Comment: see discharge summary for further details (4) Pneumonia Status: Resolved Hospital Course - Lab Results Lab Results: Micro Results 03/04/17 19:00 Blood Blood Culture - Preliminary NO GROWTH AFTER 48 HOURS 03/04/17 Unknown Urine,Clean Catch Urine Culture - Final No Growth (<1,000 CFU/ML) 02/04/17 18:00 Other: Please Indicate Mycobacterial Culture - Preliminary 02/10/17 03:45 Other: Please Indicate Mycobacterial Culture - Preliminary 01/30/17 08:02 Other: Please Indicate Mycobacterial Culture - Preliminary 02/13/17 06:45 Other: Please Indicate Blood Fungal Culture - Preliminary 02/24/17 Unknown Sputum Gram Stain - Final 02/24/17 Unknown Sputum Sputum Culture - Final Klebsiella Pneumoniae Ssp Pneu Yeast Species 02/21/17 19:48 Blood Blood Culture - Final NO GROWTH AFTER 5 DAYS 02/21/17 19:48 Blood Gram Stain - Final TEST NOT PERFORMED 02/21/17 19:20 Blood Blood Culture - Final NO GROWTH AFTER 5 DAYS 02/21/17 19:20 Blood Gram Stain - Final TEST NOT PERFORMED 02/10/17 03:45 Other: Please Indicate Blood Fungal Culture - Preliminary 02/19/17 17:21 Blood Blood Culture - Final NO GROWTH AFTER 5 DAYS 02/19/17 17:21 Blood Gram Stain - Final TEST NOT PERFORMED 02/19/17 17:21 Blood Blood Culture - Final NO GROWTH AFTER 5 DAYS 02/19/17 17:21 Blood Gram Stain - Final TEST NOT PERFORMED 02/23/17 16:00 Urine,Clean Catch Urine Culture - Final No Growth (<1,000 CFU/ML) 02/19/17 06:00 Urine,Clean Catch Urine Culture - Final No Growth (<1,000 CFU/ML) 01/07/17 08:16 Other: Please Indicate Mycobacterial Culture - Final 01/07/17 07:50 Other: Please Indicate Mycobacterial Culture - Final 01/06/17 08:23 Other: Please Indicate Mycobacterial Culture - Final 02/13/17 21:10 Blood-Venous Blood Culture - Final NO GROWTH AFTER 5 DAYS 02/13/17 21:10 Blood-Venous Gram Stain - Final 02/13/17 20:10 Blood-Venous Blood Culture - Final NO GROWTH AFTER 5 DAYS 02/13/17 20:10 Blood-Venous Gram Stain - Final TEST NOT PERFORMED 02/12/17 16:00 Blood Blood Culture - Final NO GROWTH AFTER 5 DAYS 02/12/17 16:00 Blood Gram Stain - Final 02/12/17 15:30 Blood Blood Culture - Final NO GROWTH AFTER 5 DAYS 02/12/17 15:30 Blood Gram Stain - Final TEST NOT PERFORMED 02/10/17 16:43 Other: Please Indicate Gram Stain - Final 02/10/17 16:43 Other: Please Indicate Anaerobic Culture - Final NO ANAEROBES ISOLATED. 02/10/17 16:43 Other: Please Indicate Body Fluid Culture - Final Staphylococcus Sp Coag Neg 02/12/17 23:00 Sputum Gram Stain - Final 02/12/17 23:00 Sputum Sputum Culture - Final Hafnia Alvei 01/03/17 07:00 Other: Please Indicate Mycobacterial Culture - Final 02/12/17 23:00 Urine Urine Culture - Final No Growth (<1,000 CFU/ML) 02/07/17 12:30 Blood Blood Culture - Final NO GROWTH AFTER 5 DAYS 02/07/17 12:30 Blood Gram Stain - Final TEST NOT PERFORMED 02/07/17 12:00 Blood Blood Culture - Final NO GROWTH AFTER 5 DAYS 02/07/17 12:00 Blood Gram Stain - Final TEST NOT PERFORMED 02/07/17 12:04 Sputum Gram Stain - Final 02/07/17 12:04 Sputum Sputum Culture - Final Raoultella Planticola Enterobacter Cloacae Ssp Cloac 02/07/17 12:04 Urine,Clean Catch Urine Culture - Final No Growth (<1,000 CFU/ML) 01/30/17 18:30 Bronchial Washings Gram Stain - Final 01/30/17 18:30 Bronchial Washings Bronchial Culture - Final Aristeo Albicans Coagulase Neg Staphylococcus 01/30/17 18:30 Bronchial Washings Fungal Culture - Final Aristeo Albicans 01/26/17 Unknown Blood-Venous Blood Culture - Final NO GROWTH AFTER 5 DAYS 01/26/17 Unknown Blood-Venous Gram Stain - Final TEST NOT PERFORMED 01/25/17 17:42 Blood-Venous Blood Culture - Final NO GROWTH AFTER 5 DAYS 01/25/17 17:42 Blood-Venous Gram Stain - Final TEST NOT PERFORMED 01/27/17 06:00 Urine,Clean Catch Urine Culture - Final No Growth (<1,000 CFU/ML) 01/26/17 11:40 Sputum Gram Stain - Final 01/26/17 11:40 Sputum Sputum Culture - Final Yeast Species 01/22/17 13:30 Blood Blood Culture - Final NO GROWTH AFTER 5 DAYS 01/22/17 13:30 Blood Gram Stain - Final TEST NOT PERFORMED 01/22/17 21:55 Sputum Gram Stain - Final 01/22/17 21:55 Sputum Sputum Culture - Final NORMAL ORAL FREDY 01/22/17 21:55 Urine Urine Culture - Final No Growth (<1,000 CFU/ML) 01/18/17 14:30 Blood Blood Culture - Final NO GROWTH AFTER 5 DAYS 01/18/17 14:30 Blood Gram Stain - Final TEST NOT PERFORMED 01/18/17 13:27 Blood Blood Culture - Final NO GROWTH AFTER 5 DAYS 01/18/17 13:27 Blood Gram Stain - Final TEST NOT PERFORMED 01/18/17 23:01 Sputum Gram Stain - Final 01/18/17 23:01 Sputum Sputum Culture - Final NORMAL ORAL FREDY 01/15/17 12:00 Blood-Venous Blood Culture - Final NO GROWTH AFTER 5 DAYS 01/15/17 12:00 Blood-Venous Gram Stain - Final TEST NOT PERFORMED 01/15/17 10:30 Blood-Venous Blood Culture - Final NO GROWTH AFTER 5 DAYS 01/15/17 10:30 Blood-Venous Gram Stain - Final TEST NOT PERFORMED 01/15/17 21:15 Urine Urine Culture - Final No Growth (<1,000 CFU/ML) 01/11/17 13:30 Blood Blood Culture - Final NO GROWTH AFTER 5 DAYS 01/11/17 13:30 Blood Gram Stain - Final TEST NOT PERFORMED 01/11/17 11:40 Blood Blood Culture - Final NO GROWTH AFTER 5 DAYS 01/11/17 11:40 Blood Gram Stain - Final TEST NOT PERFORMED 01/11/17 18:00 Urine,Clean Catch Urine Culture - Final No Growth (<1,000 CFU/ML) 01/06/17 12:26 Stool Stool Culture - Final NO SALMONELLA, SHIGELLA OR CAMPYLOBACTER ISOLATED. 01/02/17 21:00 Blood Blood Culture - Final NO GROWTH AFTER 5 DAYS 01/02/17 21:00 Blood Gram Stain - Final TEST NOT PERFORMED 01/02/17 21:58 Blood Blood Culture - Final NO GROWTH AFTER 5 DAYS 01/02/17 21:58 Blood Gram Stain - Final TEST NOT PERFORMED 01/06/17 12:26 Stool Ova and Parasite Concentrate Exam - Final 01/01/17 21:43 Blood Blood Culture - Final NO GROWTH AFTER 5 DAYS 01/01/17 21:43 Blood Gram Stain - Final TEST NOT PERFORMED 01/03/17 Unknown Sputum Gram Stain - Final 01/03/17 Unknown Sputum Sputum Culture - Final Yeast Species 01/01/17 23:00 Blood S.aureus & Coag-Neg Staph PNA FISH - Final 01/01/17 23:00 Blood Blood Culture - Final Coagulase Neg Staphylococcus 01/01/17 23:00 Blood Gram Stain - Final 01/01/17 21:42 Urine Urine Culture - Final No Growth (<1,000 CFU/ML) Most Recent Lab Values WBC 16.8 K/uL (4.8-10.8) H 03/07/17 08:59 RBC 3.45 Mil/uL (4.40-5.90) L 03/07/17 08:59 Hgb 9.5 g/dL (12.0-18.0) L 03/07/17 08:59 Hct 29.0 % (35.0-51.0) L 03/07/17 08:59 MCV 83.9 fL (80.0-94.0) 03/07/17 08:59 MCH 27.5 pg (27.0-31.0) 03/07/17 08:59 MCHC 32.8 g/dL (33.0-37.0) L 03/07/17 08:59 RDW 17.5 % (11.5-14.5) H 03/07/17 08:59 Plt Count 648 K/uL (130-400) H 03/07/17 08:59 MPV 7.9 fL (7.2-11.7) 03/07/17 08:59 Neut % (Auto) 75.7 % (50.0-75.0) H 03/07/17 08:59 Lymph % (Auto) 16.9 % (20.0-40.0) L 03/07/17 08:59 [place] % (Auto) 5.6 % (0.0-10.0) 03/07/17 08:59 Eos % (Auto) 1.4 % (0.0-4.0) 03/07/17 08:59 Baso % (Auto) 0.4 % (0.0-2.0) 03/07/17 08:59 Neut # 12.8 K/uL (1.8-7.0) H 03/07/17 08:59 Lymph # 2.8 K/uL (1.0-4.3) 03/07/17 08:59 [place] # 0.9 K/uL (0.0-0.8) H 03/07/17 08:59 Eos # 0.2 K/uL (0.0-0.7) 03/07/17 08:59 Baso # 0.1 K/uL (0.0-0.2) 03/07/17 08:59 Neutrophils % (Manual) 69 % (50-75) 03/07/17 08:59 Band Neutrophils % 3 % (0-2) H 03/07/17 08:59 Lymphocytes % (Manual) 16 % (20-40) L 03/07/17 08:59 Reactive Lymphs % 1 % (0-0) H 02/18/17 07:52 Monocytes % (Manual) 9 % (0-10) 03/07/17 08:59 Eosinophils % (Manual) 1 % (0-4) 03/07/17 08:59 Basophils % (Manual) 1 % (0-2) 02/26/17 07:16 Metamyelocytes % 1 % (0-0) H 03/07/17 08:59 Myelocytes % 1 % (0-0) H 03/07/17 08:59 Differential Comment 01/23/17 07:20 Toxic Granulation Present 03/01/17 07:16 Platelet Estimate Increased (NORMAL) H 03/07/17 08:59 Plt Clumps, EDTA Present 02/22/17 08:21 Large Platelets Present 03/04/17 07:40 Giant Platelets Present 03/02/17 07:07 Polychromasia Slight 03/02/17 07:07 Hypochromasia (manual) Slight 03/07/17 08:59 Poikilocytosis (manual Slight 03/07/17 08:59 Basophilic Stippling Slight 02/22/17 08:21 Anisocytosis (manual) Slight 03/07/17 08:59 Microcytosis (manual) Slight 02/21/17 07:59 Macrocytosis (manual) Slight 02/21/17 07:59 Spherocytes Slight 03/07/17 08:59 Target Cells Slight 02/26/17 07:16 Tear Drop Cells Slight 03/07/17 08:59 Ovalocytes Slight 03/07/17 08:59 Schistocytes Slight 03/07/17 08:59 ESR 103 mm/hr (0-15) H 03/07/17 08:59 PT 13.2 SECONDS (9.7-12.2) H 01/20/17 19:37 INR 1.2 01/20/17 19:37 APTT 32 SECONDS (21-34) 01/20/17 19:37 D-Dimer, Quantitative 3929 ng/mlDDU (0-243) H 01/26/17 11:15 Lupus Anticoagulant see note 02/21/17 19:55 LA PTT Screen 35 sec (<=40) 02/21/17 19:55 dRVVT Mixing Study 23 sec (<=45) 02/21/17 19:55 dRVVT Mix Interpret Not indicated 02/21/17 19:55 Puncture Site Rra 01/22/17 12:48 pCO2 31 mm/Hg (35-45) L 01/22/17 12:48 pO2 49 mm/Hg (80-100) L 01/22/17 12:48 HCO3 25.2 mmol/L (21-28) 01/22/17 12:48 ABG pH 7.49 (7.35-7.45) H 01/22/17 12:48 ABG Total CO2 24.6 mmol/L (22-28) 01/22/17 12:48 ABG O2 Saturation 90.7 % (95-98) L 01/22/17 12:48 ABG Base Excess 0.6 mmol/L (-2.0-3.0) 01/22/17 12:48 ABG Hemoglobin 9.3 g/dL (11.7-17.4) L 01/22/17 12:48 ABG Carboxyhemoglobin 2.5 % (0.5-1.5) H 01/22/17 12:48 POC ABG HHb (Measured) 9.0 % (0.0-5.0) H 01/22/17 12:48 ABG Methemoglobin 1.1 % (0.0-3.0) 01/22/17 12:48 Jim Test Pos 01/22/17 12:48 ABG Potassium 3.8 mmol/L (3.6-5.2) 01/19/17 10:41 A-a O2 Difference 62.0 mm/Hg 01/22/17 12:48 Respiratory Index 1.3 01/22/17 12:48 Hgb O2 Saturation 87.3 % (95.0-98.0) L 01/22/17 12:48 Sodium 136.0 mmol/l (132-148) 01/19/17 10:41 Chloride 110.0 mmol/L (98-107) H 01/19/17 10:41 Glucose 93 mg/dl (75-110) 01/19/17 10:41 Lactate 0.9 mmol/L (0.7-2.1) 01/19/17 10:41 FiO2 21.0 % 01/22/17 12:48 Sodium 136 mmol/L (132-148) 03/07/17 08:59 Potassium 3.4 mmol/L (3.6-5.2) L 03/07/17 08:59 Chloride 102 mmol/L (98-107) 03/07/17 08:59 Carbon Dioxide 28 mmol/L (22-30) 03/07/17 08:59 Anion Gap 9 (10-20) L 03/07/17 08:59 BUN 20 mg/dL (9-20) 03/07/17 08:59 Creatinine 0.5 MG/DL (0.8-1.5) L 03/07/17 08:59 Est GFR ( Amer) > 60 03/07/17 08:59 Est GFR (Non-Af Amer) > 60 03/07/17 08:59 POC Glucose (mg/dL) 105 mg/dL (65-110) 01/19/17 21:41 Random Glucose 100 mg/dL (75-110) 03/07/17 08:59 Lactic Acid 0.8 mmol/L (0.7-2.1) 02/21/17 19:55 Calcium 7.6 mg/dl (8.6-10.4) L 03/07/17 08:59 Phosphorus 3.6 mg/dL (2.5-4.5) 03/07/17 08:59 Magnesium 1.6 mg/dL (1.6-2.3) 03/07/17 08:59 Iron 75 ug/dL (49-181) 01/01/17 11:36 TIBC 207 ug/dL (250-450) L 01/01/17 11:36 % Saturation 34 (20-55) 01/01/17 11:36 Transferrin 130.36 mg/dL (206-381) L 01/02/17 07:20 Ferritin 454.0 ng/mL 01/01/17 11:36 Total Bilirubin 0.3 mg/dL (0.2-1.3) 03/07/17 08:59 AST 85 U/L (17-59) H 03/07/17 08:59 ALT 126 U/L (21-72) H 03/07/17 08:59 Alkaline Phosphatase 139 U/L (38-126) H 03/07/17 08:59 Lactate Dehydrogenase 491 U/L (313-618) 03/07/17 08:59 Total Creatine Kinase 36 U/L (55-170) L 03/03/17 16:33 CK-MB (Mass) 2.28 ng/mL (0.0-3.38) 03/03/17 16:33 Troponin I 0.1630 ng/mL (0.00-0.120) H* 02/02/17 07:53 Troponin I, Quant 0.1080 ng/mL (0.00-0.120) 03/03/17 16:33 C-React Prot High Sens > 15.00 mg/L (1.00-3.00) H 03/07/17 08:59 Total Protein 7.4 g/dL (6.3-8.3) 03/07/17 08:59 Albumin 2.5 g/dL (3.5-5.0) L 03/07/17 08:59 Globulin 4.9 gm/dL (2.2-3.9) H 03/07/17 08:59 Albumin/Globulin Ratio 0.5 (1.0-2.1) L 03/07/17 08:59 Amylase 103 U/L (30-110) 02/18/17 07:52 Lipase 159 U/L (23-300) 02/18/17 07:52 Aldolase 13.4 U/L (<=8.1) H 02/21/17 19:55 Angiotensin Convert Enz 86 U/L (9-67) H 02/14/17 06:07 CA 19-9 Antigen 11.6 U/mL (0-37) 01/14/17 06:53 Vitamin B6 6.8 ng/mL (2.1-21.7) 01/02/17 07:20 Vitamin B12 845 pg/mL (239-931) 01/02/17 07:20 Folate 5.4 ng/mL 01/02/17 07:20 Procalcitonin 0.43 NG/ML (0.19-0.49) 02/19/17 17:21 Free T4 1.51 ng/dL (0.78-2.19) 02/15/17 07:08 Free T3 pg/mL 1.58 pg/mL (2.77-5.27) L 02/15/17 07:08 Total T3 0.584 nmol/L (1.49-2.60) L 02/15/17 07:08 Thyroglobulin, Quant 0.9 ng/mL (2.8-40.9) L 02/15/17 07:08 TSH 3rd Generation 7.32 mIU/L (0.46-4.68) H 02/15/17 07:08 Arterial Blood Potassium 3.8 mmol/L (3.6-5.2) 01/19/17 10:41 Urine Color Straw (YELLOW) 02/03/17 22:34 Urine Clarity Clear (Clear) 02/03/17 22:34 Urine pH 6.0 (5.0-8.0) 02/03/17 22:34 Ur Specific [place] 1.042 (1.003-1.030) H 02/03/17 22:34 Urine Protein Negative mg/dL (NEGATIVE) 02/03/17 22:34 Urine Glucose (UA) Normal mg/dL (Normal) 02/03/17 22:34 Urine Ketones Negative mg/dL (NEGATIVE) 02/03/17 22:34 Urine Blood Negative (NEGATIVE) 02/03/17 22:34 Urine Nitrate Negative (NEGATIVE) 02/03/17 22:34 Urine Bilirubin Negative (NEGATIVE) 02/03/17 22:34 Urine Urobilinogen Normal mg/dL (0.2-1.0) 02/03/17 22:34 Ur Leukocyte Esterase Neg Stella/uL (Negative) 02/03/17 22:34 Urine WBC (Auto) < 1 /hpf (0-5) 02/03/17 22:34 Urine RBC (Auto) 1 /hpf (0-3) 02/03/17 22:34 Ur Squamous Epith Cells < 1 /hpf (0-5) 02/03/17 22:34 Urine Bacteria Rare (<OCC) 01/28/17 00:19 Urine Opiates Screen Negative (NEGATIVE) 02/12/17 23:34 Urine Methadone Screen Negative (NEGATIVE) 02/12/17 23:34 Ur Barbiturates Screen Negative (NEGATIVE) 02/12/17 23:34 Ur Phencyclidine Scrn Negative (NEGATIVE) 02/12/17 23:34 Ur Amphetamines Screen Negative (NEGATIVE) 02/12/17 23:34 U Benzodiazepines Scrn Negative (NEGATIVE) 02/12/17 23:34 U Oth Cocaine Metabols Negative (NEGATIVE) 02/12/17 23:34 U Cannabinoids Screen Negative (NEGATIVE) 02/12/17 23:34 Rheumatoid Factor 22 IU/mL (<14) H 02/21/17 19:55 CHAVA 6 Profile Positive (NEGATIVE) H 02/04/17 17:08 CHAVA Screen Positive (NEGATIVE) H 02/21/17 19:55 CHAVA Titer 1:320 titer H 02/21/17 19:55 CHAVA Pattern Speckled 02/21/17 19:55 ANCA Screen Negative (NEGATIVE) 02/04/17 17:08 c-ANCA Titer TNP 02/04/17 17:08 Proteinase 3 (PR3) <1.0 AI (<1.0) 02/10/17 07:09 p-ANCA Titer TNP 02/04/17 17:08 Atypical p-ANCA Titer TNP 02/04/17 17:08 Myeloperoxidase Ab <1.0 AI (<1.0) 02/10/17 07:09 SS-A Antibody >8.0 pos AI (<1.0 NEGATIVE) H 02/21/17 19:55 SS-B Antibody >8.0 pos AI (<1.0 NEGATIVE) H 02/21/17 19:55 Sm ([place]) Antibody <1.0 neg AI (<1.0 NEGATIVE) 02/21/17 19:55 Sm ([place]) Antibody <1.0 AI (<1.0) 02/06/17 14:17 Anti-[place] Interpret Negative (Negative) 02/06/17 14:17 SM/N[facility]SING [facility] TUTOR Antibody <1.0 neg AI (<1.0 NEGATIVE) 02/21/17 19:55 Scl-70 Antibody <1.0 neg AI (<1.0 NEGATIVE) 02/21/17 19:55 Double Strand DNA Ab <1 IU/mL 02/06/17 14:17 Anti-ds DNA Titer ([place]) TNP 02/21/17 19:55 Anti-ds DNA (Crith[place]) Negative (NEGATIVE) 02/21/17 19:55 Ribosomal P Prot Ab <1.0 neg AI (<1.0 NEGATIVE) 02/21/17 19:55 Anti-Mitochondrial Titr TNP 02/21/17 19:55 Anti-Mitochondrial Ab Negative (NEGATIVE) 02/21/17 19:55 Actin IgG Antibody 85 U H 02/21/17 19:55 Striated Muscle Ab TNP 02/21/17 19:55 Myocardial Ab Titer TNP 02/21/17 19:55 Anti-Myocardial Ab Negative (NEGATIVE) 02/21/17 19:55 Reticulin Ab Titer TNP 02/21/17 19:55 Reticulin IgA Antibody Negative (NEGATIVE) 02/21/17 19:55 Thyroperoxidase Ab 54 IU/mL (<9) H 02/21/17 19:55 Thyroperoxidase Ab 49 IU/mL (<9) H 02/15/17 07:08 Thyroglobulin Antibody 763 IU/mL (< OR = 1) H 02/15/17 07:08 Glomerular Base Mem IgG <1.0 AI (<1.0) 02/10/17 07:09 Anti-Parietal Cell Ab <20.0 U 02/21/17 19:55 Complement C3 134 mg/dL 02/21/17 19:55 Complement C4 19 mg/dL (ADULTS: 16-47) 02/21/17 19:55 Absolute Lymphs (Flow) 960 Cells/mcL (850-3900) 02/14/17 06:07 % CD4 Cells 23 Percent (30-61) L 02/14/17 06:07 Absolute CD4 Count 217 Cells/mcL (490-1740) L 02/14/17 06:07 T-Help/Suppress Ratio 1.61 Ratio (0.86-5.00) 02/14/17 06:07 % CD8 Cells 14 Percent (12-42) 02/14/17 06:07 Absolute CD8 Count 135 Cells/mcL (180-1170) L 02/14/17 06:07 RPR Nonreactive (NONREACTIVE) 01/02/17 07:20 Brucella Agglutinins (()) 02/17/17 06:25 Brucella IgG Antibody 0.06 02/17/17 06:25 Brucella IgM Antibody 0.05 02/17/17 06:25 C. difficile Ag & Toxin Negative (NEGATIVE) 02/21/17 19:10 Coccidioides TP-Ag Ab Negative 02/06/17 07:05 Coccidioides F-Ag Ab Negative 02/06/17 07:05 Hepatitis A IgM Ab Negative (NEGATIVE) 01/16/17 19:15 Hep Bs Antigen Negative (NEGATIVE) 01/16/17 19:15 Hep B Core IgM Ab Negative (NEGATIVE) 01/16/17 19:15 Hepatitis C Antibody Negative (NEGATIVE) 01/16/17 19:15 Histoplasma Ab Imm Diff Negative (Negative) 02/06/17 07:05 HIV 1&2 Antibody Screen Negative (NEGATIVE) 01/16/17 19:15 Influenza Typ A,B (EIA) Negative for flu a/b (NEGATIVE) 01/22/17 14:19 H.influenzae Type B Ag Not required (NEGATIVE) 01/07/17 20:22 Ur L.pneumophila Ag Negative (NEGATIVE) 01/07/17 20:25 Blood Parasites Smear Negative (NEGATIVE) 02/03/17 20:28 Mycoplasma pneumon IgG 2.25 (<=0.90) H 01/07/17 14:14 Mycoplasma pneumon IgM 350 U/mL (<770) 01/07/17 14:14 N.meningitidis ACY/W135 Not required (NEGATIVE) 01/07/17 20:22 N.meningi B/E.coli K1 Ag Not required (NEGATIVE) 01/07/17 20:22 Aspergillus Antigen Not detected (Not Detected) 01/30/17 11:11 Aspergillus flavus Ab Negative (Negative) 02/10/17 07:09 Aspergill fumigatus Ab Negative (Negative) 02/10/17 07:09 Aspergillus niger Ab Negative (Negative) 02/10/17 07:09 Aspergillus Index Value 0.17 (<0.50) 01/30/17 11:11 Q Fever Phase I IgG Ab Negative 02/04/17 17:08 Q Fever Phase I IgM Ab Negative 02/04/17 17:08 Q Fever Phase II IgG Ab Negative 02/04/17 17:08 Q Fever Phase II IgM Ab Negative 02/04/17 17:08 Group B Strep Antigen Not required (NEGATIVE) 01/07/17 20:22 S. pneumoniae Antigen Negative (NEGATIVE) 01/07/17 20:22 TB Test (QFT) Nil 0.03 IU/mL 01/02/17 14:14 TB Test Mitogen - Nil 0.22 IU/mL 01/02/17 14:14 TB Test TB - Nil 0.00 IU/mL 01/02/17 14:14 TB Test (QFT) Indeterminate (Negative) H 01/02/17 14:14 - Hospital Course Hospital Course: As per H&P, "CC : Vertigo/ Nausea/ Vomiting HPI: Patient is a 51 year old male with past medical history of recently diagnosed TB, hypothyroidism, who presents to the ED with complaints of vertigo associated with nausea and vomiting that worsened this morning. Patient reports that his symptom of dizziness started last night around 8pm after standing up from a sitting position. Thereafter, patient went to bed and his symptoms worsened; around 2am, patient had his first episode of vomit and second episode at 5am. Patient reports that he feels dizzy with positional changes. Patient admits to blurry vision, nausea, vomiting, dizziness, occasional palpitations but denies any headache, weakness, numbness, chest pain, shortness of breath and hearing changes. PMD: Dr. Bran Stoner ) PMhx: Recent diagnosed TB ( 3 weeks ago), Hypothyroidism, Chronic acne PSHx: None FHx: None Medications: Isonazid 300 mg po daily ([place] 3 weeks ago), Synthroid 88mcg PO daily, Minocycline HCL 100mg PO BID, Vit B6 Medication given in the ER: Aspirin 325mg PO, Ca2+ gluconate 4.65meq, Ativan 0.25mg IVPB, Meclizine 25mg PO" Patient admitting to the hospital and underwent an extensive workup for fever of unknown origin during his hospitalization. 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 Provided translation with nurse [place], [place] Sin[place] speaker regarding discharge instructions in detail for the patient. Discharge order and instructions with the patient and resident in detail. Medication reconciled completed with the resident. Prescriptions provided to the patient as follows: 1) Amiodarone 200mg PO BID (60 tabs/0 refills) for ventricular tachycardia; will need f/u thyroid studies and liver function tests repeated in 3-4 months. Patient has had underlying lung pathology and thyroid disease prior to starting Amiodarone. 2) Aspirin 325mg PO bid (24 tabs/0 refills) or Aspirin 81mg PO daily X 8 tabs for 2 weeks (which ever is affordable option for the patient) for pericarditis associated with Adult's Stills disease. Patient instructed to take with food. 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 If this is not affordable to the patient, patient was also advised OTC pepcid as substitution 6) Prednisone 65mg PO daily (Started on 03/02--> WILL NEED TO BE MONITOR ON TAPER with associated blood work, recommended for rheumatology referral * Prednsione 10mg (6 tabs) daily + Prednisone 5mg (1 tab) daily in 2-3 week interval--->patient will need to be monitored for titration by 10mg (1 tab) with clinical improvement of symptoms. * Patient will need repeat ESR, LDH, CRP, and CBC. * During the hospitalization, since the start of the steroid, these values have downtrended. * Patient started on Prednisone 65mg PO daily on 03/02/17. * Patient will need referral to print production associate to be monitored as these values down trend. Patient instructed that he will need to be supervised during his taper by print production associate that he cannot suddenly stop steroid, otherwise he may suffer sudden hypotension, dizziness, vertigo (symptoms of adrenal insufficiency ). Other instructions: 1) Will need referral to print production associate at his follow-up clinic appointment 2) Patient will need repeat CT Abdomen/Pelvis in 6 months (May 2016) to monitor pancreatic lesion 3) Upon conclusion of steroid taper, patient will need to treatment of latent tuberculosis. Isonazid discontinued during hospitalization due to transaminitis. Patient's AFB stain and cultures have been negative. Below is Summary of Workup of Hospitalization Discharge Diagnoses: 1). Adult Still's Disease * Consult: Dr Dumont (rheumatology)-->given consideration for Adult Still's Disease in light of extensive workup for fever unknown origin-->patient will follow-up with the [facility] and recommend for referral for rheumatology as outpatient to monitor Based on colleagues A/P over last week: This is certainly a diagnosis of exclusion: please see the work up below The following support the diagnosis of Adult Still's Disease: * Fever: these have roughly been consistant at the same time at night * Maculopapular [place] colored rash: this was present on face, neck, and upper chest on 01/01/17--->resolved * Arthralgias: predominanly involving the bilateral shoulders-->improved * Myalgias: complained of neck and bilateral upper arm myalgias for a few days starting on 02/12/17-->improved * Pharyngitis: he has had some soreness/dryness in his throat on and off since admission--->resolved * Lymphadenopathy: 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 * Leukocytosis: he has had waxing and waing elevated WBC but alway above 15,000 * Pulmonary Infiltrates: he has had subpleural infilterates with pleural effusions as seen on his CT Chests * Pericardial Effusion: confirmed pericarditis, started on Aspirin 325mg PO bid , discussed with cardiology, and had three echocardiograms during hospitalization 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 () and CRP (01/07/17, 01/09/17, 02/17/17) * Elevated Granulocytes: he has had Eosinophilia (02/15/17, 02/16/17, 02/17/17, ) * Elevated LDH: 01/07/17, 01/09/17, 01/13/17, 02/17/17, 03/03/17-->will repeat tomorrow * Elevated LFTs: he has had elevated AST (01/04/17 through 01/20/17) and elevated ALT (01/15/17 through 01/20/17 and 02/15/17 through 02/17/17) * CHAVA Positive: 02/21/17 * RF Positive: 02/21/17 Because of the above and because of the essentially negative extensive workup ( as described below) , Per my colleague, 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 For our patient who is being started on Prednisone 65 mg, we may decrease the daily dose of Prednisone every week with the aim of reducing Prednisone dosing to below 10 mg daily within eight weeks, then discontinuing Prednisone therapy over the subsequent three months. * In order to protect his bones from the Prednisone, Calcium/Vitamin D 250/125 2 tablet by mouth 3x/day has been ordered as this is what our pharmacy carries here. Our goal is Calcium Citrate 1,200 mg and Vitamin D 800 IU in a 24 hour period of time in divided doses and not all at once. * Patient will need thorough follow up with Rheumatology as an outpatient when he is ready for discharge. 2). Leukocytosis; Fever of Unknown Origin * Pulmonary (Dr. Mckeon) on board * Infectious Disease (Dr. Calzada/Dr. Carias) on board * Heme-onc (Dr. Jennifer Alexandre) on board * Rheumatology (Dr. Dumont) on board * s/p bronchoscopy/bronchial washing for Thursday01/30/17 and this was performed: culture showed Aritseo albicans and Coag Neg Staph and Sputum AFB is negative--- >completed Diflucan 200 mg IV on 02/03/17 and treated through 02/13/17. * CT scan Chest/Abdomen/Pelvis (02/03/17): largely stable findings within the chest; included septa; thickening; persistent bibasilar consolidation bronchiesctasis; lymphadenopathy including mediastinal and axillary lymph nodes ; cervical lymphadenopathy present * Sputum Culture 02/07/17 showed Raoultella planticola and Enterobacter cloacae and patient was on Ceftriaxone from 02/03/17 through 02/13/17. * S/P Bone Marrow Bx 02/10/17 and Bone Marrow Cultures are currently negative--> . 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 Diffuse liner/tubular shaped increase radiotracer uptake at the left abdomen suspicious for uptake in the left colon. Correlate clinically for colitis * CT Abdomen/Pelvis w PO contrast (02/18/17): bibasal or consolidation. Small bulla/bleb in right lower lobe. No change. Right renal cyst with a calcification in the wall of the cyst. No stones are seen in the left kidney. Small hiatal hernia. Very small pleural effusions bilaterally. Small inguinal hernia containing fat bilaterally * Dr. Pete Gresham spoke with IR Dr. Rosa Jacobson (02/25/17): Dr. Jacobson reveiwed prior CTs and unfortunately does not have a seeable area for FNA biopsy. He recommended repeat CT Chest and this has been done showing extensive bilateral lower lobe fibrotic changes, stable to slightly increased bilateral lower lobe consolidations and ground glass opacities, septal thickening present, subplueral cysts, trace bilateral plueral effusions * CT Soft Neck has also been ordered for 02/26/17 and there is NO evidence of mass , NO abnormal enhancement or pathologic lymphadenopathy, apparent mild circumferential mural thickening of the visualized upper thoracic esophageal wall is nonspecific and could represent infectious/inflammatory esophagitis * 02/27/17 patient with fever of 100.2 overnight and with Sputum Culture 02/24/17 came back positive for Klebsiella and Yeast therefore Imipenem 500 mg IV Q12H and Micafungin 100 mg IV Q24H were both started 02/27/17 * Also, possible Adult Still's Disease, and patient has positive antibiodies suggestive for Sjogren's Syndrome considering the results of autoimmune testing. He will need outpatient follow up with Rheumatology. * 03/04/17: Tmax: 100.1F, Leukocytosis (in light of PO steroid); repeated blood and urine to r/o other infection * 03/05/17: Afebrile, f/u blood and urine cultures 03/04/17, white count improving * 03/06/17: Remains afebrile, blood cultures are negative, urine culture shows no growth, white count improving, and antibiotics discontinued Microbiology: * Aspergillus: negative * Q fever: negative * Hepatitis Panel: negative * Blood parasites: negative * Hepatitis panel: negative * Coccidiodes F-Ag Ab/TP-Ag Ab: negative * C. difficle toxin: negative X7 * Quantaferon:L indeterminate * S. pneumoniae Ag: negative * Group B Strep Antigen: not required * N. meningitis: not required * Urine legionella: negative * HIV: negative X3 * Brucella: negative * RPR: nonreactive Positive Microbiology--which have all been treated during hospitalization. * 01/01: Blood: Coag neg Staph (1/2) bottles; 01/02 Blood cultures negative X2 5 days * 01/03; 01/06; 01/07 Mycobacterial Culture: no fast acid bacilli identified; no Mycobacterium isolated for 6 weeks X3 Bone Marrow: no acid fast isolated * 01/26: Sputum: Yeast * 01/30: Bronchial washings: aristeo albicans and coag negative Stap * 02/07: Sputum: Raoultella Planticola and Enterobacter Cloacae * 02/10: Bone Marrow Staphyloccous Sp Coag * 02/12: Sputum: Hafnia Alvei * 02/24: Sputum: ESBL+ Klebsiella and Yeast * 02/21/17 Blood Culture is negative * 02/23/17 Urine Culture is negative * 03/04/17 Blood culture: no growth after 48 hours * 03/04/17: Urine culture: no growth Immunology: * CHAVA: positive; 1:160/ 1:320 speckled, ANCA: negative, Proteinase 3: <1.0, Myeloperoxidase <1.0, [place] Ab <1.0 * Rheumatoid Factor: 22 * Anti SS-A/SS-B: >8.0 X2 * negative Montelongo Antibody * Snegative [facility] antibody * Negative DsDNA * Positive Actin Igg Antibody * Positive Thyroperoxidase Ab * negative GBM * Negative Parietal Cell UDS: negative 3). Hx Elevated Troponin: likely secondary to episode of V Tach. Cardiac Cath performed by Dr. Pryor 01/27/17 showed clean coronaries. Therapeutic Lovenox was discontinued. Patient is currently on telemetry. Amiodarone 200mg PO bid 4). Hyponatremia: Monitor 5). Hx Bacteremia: repeat cultures have been negative to date. Prior cultures have been treated accordingly 6). Hx of TB Prophylaxis: he was on INH for latent tuberculosis upon admission but currently not on anything given transaminitis. Sputum x [address] Chest 01/26/17 shows no change when compared to 01/20/17 (please see full reports ). 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 Hx Diffuse Rash: resolved 8). Hx Pancreatic Lesion: F/U CT Abdomen in 6 months; GI seen during hospitalization. 9). 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 Aspirin; Resolved in repeat Duplex 10). Hx Constipation: resolved 11). Anemia likely secondary to Chronic Disease: stable 13). Hx Vertigo: resolved and was likely secondary to the Minocycline that patient was on at the time of admission and once discontinued, this issue resolved and has not recurred 14). Hx Diarrhea: resolved 15). Hx Bilateral Lower Leg Edema: duplex are negative, much improved and now mild non-pitting edema involving the ankles 16). Hx Elevated LFTs: monitor; hepatitis negative; d/c tylenol and motrin 17). History of hypothyroidism. TSH: 9.9 on 01/26/17, repeat thyroid panel: TSH: 7.32, Free t4: 1.51, Total T3: 0.584, T3 3rd generation 7.32, consult: endocrinology: Synthroid was increased to 112 mcg PO 1x/day 18). Prophylactic measure: Lovenox 40mg subqdaily Patient is medically stable for discharge. Patient to establish care in the [facility] on Thursday, March 09 at 9AM. Discharge instructions noted above. Translated for the patient in detail. Every effort has been made to make sure patient understands in terms of medications and subsidize cost for the patient to continue treatment. This is an extensive summary of patient's hospitalization. Please refer entire medical record for further details. - Date & Time of H&P Date of H&P: 01/01/17 Time of H&P: 13:16 Discharge Exam - Head Exam Head Exam: NORMAL INSPECTION - Eye Exam Eye Exam: EOMI, PERRL. absent: Nystagmus, Scleral icterus Pupil Exam: NORMAL ACCOMODATION, PERRL - ENT Exam ENT Exam: Mucous Membranes Moist - Respiratory Exam Respiratory Exam: Decreased Breath Sounds, NORMAL BREATHING PATTERN. absent: Rales, Rhonchi, Respiratory Distress Additional comments: good air exchange - Cardiovascular Exam Cardiovascular Exam: REGULAR RHYTHM, +S1, +S2 - GI/Abdominal Exam GI & Abdominal Exam: Normal Bowel Sounds, Soft. absent: Distended, Firm, Guarding, Rebound, Rigid, Tenderness - Extremities Exam Extremities exam: normal capillary refill, pedal edema (minimal pitting edema), pedal pulses present - Back Exam Back exam: absent: CVA tenderness (L), CVA tenderness (R) - Neurological Exam Neurological exam: Alert, Oriented x3 - Psychiatric Exam Psychiatric exam: Normal Affect, Normal Mood - Skin Skin Exam: Dry, Intact, Normal Color, Warm Discharge Plan - Discharge Medications Prescriptions: Amiodarone [Cordarone] 200 mg PO BID #60 tab Aspirin 325 mg PO BID #28 tab Calcium Carbonate/Vitamin D [Oscal-D 250 mg-125 Units Tab] 2 tab PO TID #90 tab Levothyroxine [Synthroid] 112 mcg PO DAILY@0630 #30 tab Pantoprazole [Protonix EC Tab] 40 mg PO DAILY #30 ect predniSONE [predniSONE Tab] 60 mg PO DAILY 30 Days predniSONE [predniSONE Tab] 5 mg PO DAILY #30 tab - Follow Up Plan Condition: STABLE Disposition: HOME/ ROUTINE Patient education suggested?: Yes Referrals: [facility] [Outside] - 1 Day (for 03/09/17 at 9AM)
--- NOTE | 2017-03-08 10:19 | CARD ---
APPROVED REPORT EKG Measurement Heart [id number] <Conclusion> Normal sinus rhythm Left axis deviation Cannot rule out Anterior infarct, age undetermined Inferolateral injury pattern ACUTE DE / STEMI Abnormal ECG
== END 2017-03-07 15:20 | disposition home or self-care (01) | DRG 477 ==
LOC: C.ER 05:42 → C.9E 07:21 → C.6T 07:33 → OBSVTOIN 08:45 → C.6T 01-02 20:18
PROVIDERS: ADMIT Hospitalist; ATTEND Hospitalist
PROC: 4A023N7 Measurement of Cardiac Sampling and Pressure, Left Heart, Percutaneous Approach (ICD-10-PCS; 2017-01-27)
PROC: B2151ZZ Fluoroscopy of Left Heart using Low Osmolar Contrast (ICD-10-PCS; 2017-01-27)
PROC: B2111ZZ Fluoroscopy of Multiple Coronary Arteries using Low Osmolar Contrast (ICD-10-PCS; 2017-01-27)
PROC: 0B978ZX Drainage of Left Main Bronchus, Via Natural or Artificial Opening Endoscopic, Diagnostic (ICD-10-PCS; 2017-01-30)
PROC: 0B9H8ZX Drainage of Lung Lingula, Via Natural or Artificial Opening Endoscopic, Diagnostic (ICD-10-PCS; 2017-01-30)
PROC: 0BBB8ZX Excision of Left Lower Lobe Bronchus, Via Natural or Artificial Opening Endoscopic, Diagnostic (ICD-10-PCS; 2017-01-30)
PROC: 07DR3ZX Extraction of Iliac Bone Marrow, Percutaneous Approach, Diagnostic (ICD-10-PCS; principal; 2017-02-10)
DX: M06.1 Adult-onset Still's disease (principal); I47.2 Ventricular tachycardia; J90 Pleural effusion, not elsewhere classified; I11.9 Hypertensive heart disease without heart failure; R78.81 Bacteremia; E11.41 Type 2 diabetes mellitus with diabetic mononeuropathy; E87.6 Hypokalemia; I82.611 Acute embolism and thrombosis of superficial veins of right upper extremity; I27.2 Other secondary pulmonary hypertension; K40.90 Unilateral inguinal hernia, without obstruction or gangrene, not specified as recurrent; K44.9 Diaphragmatic hernia without obstruction or gangrene; K52.9 Noninfective gastroenteritis and colitis, unspecified; K59.00 Constipation, unspecified; T36.8X5A Adverse effect of other systemic antibiotics, initial encounter; J47.9 Bronchiectasis, uncomplicated; E78.5 Hyperlipidemia, unspecified; E03.9 Hypothyroidism, unspecified; Z79.82 Long term (current) use of aspirin; Z85.72 Personal history of non-Hodgkin lymphomas; Z86.11 Personal history of tuberculosis; D63.8 Anemia in other chronic diseases classified elsewhere; E04.2 Nontoxic multinodular goiter